=== PATIENT | male | born 1960 | race Caucasian/White ===

== ENCOUNTER 2019-08-21 10:54 | Emergency (ER) | payer OTHER ==
[2019-08-21 11:10] VITALS: RESP 18; TEMP 97.9
[2019-08-21] MEDS ORDERED: SODIUM CHLORIDE 0.9% 1,000 ML IV STA ×2 (11:18→14:50)
[2019-08-21] MEDS: ONDANSETRON 4 MG/2 ML VIAL IVP STA ×3 (11:44→14:51)
[2019-08-21 11:56] LABS: Basophils % (A) 0 %; Eosinophils # (A) 0.1 k/uL (0-0.7); Eosinophils % (A) 1 %; HCT 47.7 % (39.0-53.0); HGB 16.3 gm/dL (13.0-17.5); Lymphocytes # (A) 0.7 k/uL (1.0-4.8); Lymphocytes % (A) 15 %; MCHC 34.2 g/dL (31.0-37.0); MCV 90.6 fL (80.0-100.0); Mean Platelet Volume 7.1; Monocytes # (A) 0.4 k/uL (0-1.0); Monocytes % (A) 8 %; Neutrophils # (A) 3.7 k/uL (1.3-7.7); Neutrophils % (A) 75 %; Platelet Count 136 k/uL (150-450); RBC 5.27 m/uL (4.30-5.90); RDW 13.9 % (11.5-15.5); WBC 4.9 k/uL (3.8-10.6)
[2019-08-21 12:04] LABS: ALT 36 U/L (21-72); AST 48 U/L (17-59); African American GFR (CKD) >90 (>60 ml/min/1.73 sqM); Albumin 4.7 g/dL (3.5-5.0); Alkaline Phosphatase 72 U/L (38-126); Anion Gap 15 mmol/L; Blood Urea Nitrogen 14 mg/dL (9-20); Calcium 8.7 mg/dL (8.4-10.2); Carbon Dioxide 25 mmol/L (22-30); Chloride 99 mmol/L (98-107); Glucose 130 mg/dL (74-99); Non-African American GFR(CKD) >90 (>60 ml/min/1.73 sqM); Potassium 4.5 mmol/L (3.5-5.1); Sodium 139 mmol/L (137-145); Total Bilirubin 1.1 mg/dL (0.2-1.3); Total Protein 7.7 g/dL (6.3-8.2)
[2019-08-21 12:08] LABS: INR 0.9 (<1.2); Partial Thromboplastin Time 22.4 sec (22.0-30.0); Prothrombin Time 9.5 sec (9.0-12.0)
[2019-08-21 12:15] LABS: Alcohol 363 mg/dL
[2019-08-21 12:21] LABS: D-Dimer 1.97 mg/L FEU (<0.60)
[2019-08-21] MEDS ORDERED: FAMOTIDINE 20 MG/2 ML VIAL IV STA (13:48)
[2019-08-21] MEDS ORDERED: MAG HYDROX/AL HYDROX/SIMETH 30 ML CUP PO PRN (13:48)
--- NOTE | 2019-08-21 14:21 | CT ---
CT CHEST FOR PULMONARY EMBOLISM. EXAMINATION TYPE: CT angio chest DATE OF EXAM: 08/21/2019 INDICATION: Chest pain. History of PE and DVT. CT DLP: 445.9 mGycm, Automated exposure control for dose reduction was used. CONTRAST: Patient injected with 100 mL of Isovue 370. COMPARISON: None TECHNIQUE: CT of the chest is performed on a spiral scan at 2 mm thick sections. Study is performed with intravenous contrast timed for evaluation for pulmonary embolism. This will limit additional po rtions of the evaluation. 3-D MIP images reconstructed by the technologist are reviewed on the compu ter in the coronal and sagittal planes. FINDINGS: No persistent filling defects are evident to suggest an acute pulmonary embolism. No mediastinal or hilar adenopathy enlarged by CT criteria is evident. The ascending aorta diameter at the level of the main pulmonary artery is 4.0 cm. The main pulmonary artery diameter at the bifur cation is 3.2 cm. There is a small hiatal hernia. 0.5 cm peripheral nodular densities within the mid left lung. Series [address] section through the upper abdomen are unremarkable. There is a large hypodensity within th e isthmus of thyroid. Consider follow-up ultrasound. IMPRESSIONS: 1. No acute pulmonary embolism. 2. Small hiatal hernia. 3. A 2.8 cm hypodensity within the isthmus of thyroid. Follow-up ultrasound is recommended.
[2019-08-21] MEDS ORDERED: ONDANSETRON 4 MG/2 ML VIAL IVP STA (14:50)
--- NOTE | 2019-08-21 15:52 | ED ---
Chest Pain HPI - General Chief Complaint: Chest Pain Stated Complaint: Chest pain Time Seen by Provider: 08/21/19 10:59 Source: patient Mode of arrival: ambulatory Limitations: no limitations - History of Present Illness Initial Comments: Patient complains of chest pain. Pain is the middle of the chest. He also has nausea. He was drinking before arrival. He has no belly or back pain. His chest pain has been present for several hours. Nothing makes his symptoms better or worse. He has taken no medicine for this. He denies any diaphoresis. He has no focal weakness. He has no palpitations. He denies any injuries. He has no headache. He has no neck pain or stiffness. He has no blood in the stool. - Related Data Allergies Allergy/AdvReac Type Severity Reaction Status Date / Time Penicillins Allergy Mild Rash/Hives Verified 08/21/19 11:39 Review of Systems ROS Statement: Those systems with pertinent positive or pertinent negative responses have been documented in the HPI. ROS Other: All systems not noted in ROS Statement are negative. EKG Findings - EKG Comments: EKG Findings:: Twelve-lead EKG shows ventricular rate 84 bpm, normal VT interval and QRS complex is, no ST elevation or depression, interpreted by me as normal sinus rhythm. Past Medical History Past Medical History: Pulmonary Embolus (PE) Additional Past Medical History / Comment(s): DVT, pt states he was taking xarelto x 1 year ago but couldnt afford it after losing his insurance. History of Any Multi-Drug Resistant Organisms: MRSA Date of last positivie culture/infection: 2006 MDRO Source:: unk Past Surgical History: No Surgical Hx Reported Past Psychological History: No Psychological Hx Reported Smoking Status: Current every day smoker Past Alcohol Use History: Daily Past Drug Use History: None Reported General Exam Limitations: no limitations General appearance: alert, in no apparent distress Head exam: Present: atraumatic, normocephalic, normal inspection Eye exam: Present: normal appearance, PERRL, EOMI. Absent: scleral icterus, conjunctival injection, periorbital swelling ENT exam: Present: normal exam, mucous membranes moist Neck exam: Present: normal inspection. Absent: tenderness, meningismus, lymphadenopathy Respiratory exam: Present: normal lung sounds bilaterally. Absent: respiratory distress, wheezes, rales, rhonchi, stridor Cardiovascular Exam: Present: regular rate, normal rhythm, normal heart sounds. Absent: systolic murmur, diastolic murmur, rubs, gallop, clicks GI/Abdominal exam: Present: soft, normal bowel sounds. Absent: distended, tenderness, guarding, rebound, rigid Extremities exam: Present: normal inspection, full ROM, normal capillary refill. Absent: tenderness, pedal edema, joint swelling, calf tenderness Back exam: Present: normal inspection Neurological exam: Present: alert, oriented X3, CN II-XII intact Psychiatric exam: Present: normal affect, normal mood Skin exam: Present: warm, dry, intact, normal color. Absent: rash Course Vital Signs 08/21/19 08/21/19 08/21/19 10:58 11:27 11:47 Temperature 97.9 F Pulse Rate 86 88 81 Respiratory 18 18 18 Rate Blood Pressure 143/100 143/100 136/91 O2 Sat by Pulse 94 L 97 100 Oximetry 08/21/19 14:10 Temperature Pulse Rate 102 H Respiratory 18 Rate Blood Pressure 148/94 O2 Sat by Pulse 100 Oximetry Chest Pain MDM - Core Measures AMI Core Measures Followed: Yes - MDM Patient presents with chest pain, nausea, alcohol intoxication. His laboratory studies show no acute emergency. He has a history of pulmonary embolism, so obtained a d-dimer which was positive. CT of the chest does not show any acute emergency including negative PE. Patient is observed until clinically sober which time he is discharged home. Disposition Clinical Impression: Alcohol intoxication, Chest pain Disposition: HOME SELF-CARE Condition: Good Instructions (If sedation given, give patient instructions): Chest Pain (ED), Alcohol Intoxication (ED) Is patient prescribed a controlled substance at d/c from ED?: No Referrals: None,Stated [Primary Care Provider] - 1-2 days Yee Calix MD [STAFF PHYSICIAN] - 1-2 days
[2019-08-21] MEDS ORDERED: ONDANSETRON ODT 4 MG TAB PO STA (16:21)
[2019-08-21 16:37] VITALS: BP 134/81; PULSE 100
== END 2019-08-21 16:45 | disposition home or self-care (01) ==
LOC: EC 10:54
DX: F10.129 Alcohol abuse with intoxication, unspecified (principal); R07.9 Chest pain, unspecified; F17.200 Nicotine dependence, unspecified, uncomplicated; Z88.0 Allergy status to penicillin; Z86.711 Personal history of pulmonary embolism; Z86.718 Personal history of other venous thrombosis and embolism
CPT/HCPCS: 36415; 93005; 85379; 83880; 80053; 83735; 84484; 85025; 85610; 85730; 80320; 71275; 99285; 96374; 96375; 96361 ×3; J2405; Q9967

== ENCOUNTER 2020-06-01 16:57 | Inpatient (IN) | payer OTHER ==
[2020-06-01] MEDS ORDERED: THIAMINE 100 MG/ML 2 ML VIAL IM STA (17:08)
[2020-06-01] MEDS ORDERED: LORazepam 2 MG/ML INJ IV PRN (17:08)
[2020-06-01] MEDS ORDERED: SODIUM CHLORIDE 0.9% 500 ML 500 ML IV ONE (17:09)
[2020-06-01 17:42] LABS: Basophils % (A) 0 %; Eosinophils % (A) 1 %; HCT 49.2 % (39.0-53.0); HGB 15.9 gm/dL (13.0-17.5); Lymphocytes # (A) 0.4 k/uL (1.0-4.8); Lymphocytes % (A) 7 %; MCH 32.7 pg (25.0-35.0); MCHC 32.4 g/dL (31.0-37.0); MCV 101.1 fL (80.0-100.0); Macrocytosis Slight; Mean Platelet Volume 8.1; Monocytes # (A) 0.3 k/uL (0-1.0); Monocytes % (A) 5 %; Neutrophils # (A) 4.8 k/uL (1.3-7.7); Neutrophils % (A) 86 %; RBC 4.87 m/uL (4.30-5.90); RDW 14.2 % (11.5-15.5); WBC 5.5 k/uL (3.8-10.6)
[2020-06-01 17:51] LABS: African American GFR (CKD) >90 (>60 ml/min/1.73 sqM); Alcohol 76 mg/dL; Anion Gap 20 mmol/L; Blood Urea Nitrogen 12 mg/dL (9-20); Carbon Dioxide 16 mmol/L (22-30); Chloride 97 mmol/L (98-107); Glucose 168 mg/dL (74-99); Magnesium 1.6 mg/dL (1.6-2.3); Non-African American GFR(CKD) >90 (>60 ml/min/1.73 sqM); Potassium 4.7 mmol/L (3.5-5.1); Sodium 133 mmol/L (137-145)
[2020-06-01 17:59] LABS: Platelet Count 73 k/uL (150-450)
[2020-06-01] MEDS ORDERED: NALOXONE 0.4 MG/ML 1 ML VIAL IV PRN (18:08)
--- NOTE | 2020-06-01 18:08 | ED ---
General Adult HPI - General Chief complaint: Alcohol Stated complaint: ETOH Time Seen by Provider: 06/01/20 16:59 Source: patient, EMS, RN notes reviewed, old records reviewed Mode of arrival: EMS Limitations: no limitations - History of Present Illness Initial comments: 59-year-old male presenting for evaluation of alcohol withdrawal. Patient states she has been drinking 1/5 of whiskey daily for the past one week. He is complaining of tremor, headache. Patient notes to his last drink being yesterday evening. Patient denies suicidal ideation. No significant vomiting. No fever. No cough. - Related Data Home Medications Medication Instructions Recorded Confirmed No Known Home Medications 06/01/20 06/01/20 Allergies Allergy/AdvReac Type Severity Reaction Status Date / Time Penicillins Allergy Mild Rash/Hives Verified 06/01/20 18:10 Review of Systems ROS Statement: Those systems with pertinent positive or pertinent negative responses have been documented in the HPI. ROS Other: All systems not noted in ROS Statement are negative. Past Medical History Past Medical History: Pulmonary Embolus (PE) Additional Past Medical History / Comment(s): DVT, pt states he was taking xarelto x 1 year ago but couldnt afford it after losing his insurance. History of Any Multi-Drug Resistant Organisms: MRSA Date of last positivie culture/infection: 2006 MDRO Source:: unk Past Surgical History: No Surgical Hx Reported Past Psychological History: No Psychological Hx Reported Smoking Status: Current every day smoker Past Alcohol Use History: Abuse, Daily, Heavy Past Drug Use History: None Reported General Exam Limitations: no limitations General appearance: alert, in distress, other (Tremulous) Head exam: Present: atraumatic, normocephalic Eye exam: Present: PERRL ENT exam: Present: mucous membranes dry Neck exam: Present: normal inspection. Absent: tenderness, meningismus Respiratory exam: Present: normal lung sounds bilaterally. Absent: respiratory distress, wheezes Cardiovascular Exam: Present: normal rhythm, tachycardia GI/Abdominal exam: Present: soft. Absent: distended, tenderness, guarding Extremities exam: Present: normal inspection, normal capillary refill. Absent: pedal edema Neurological exam: Present: alert, oriented X3. Absent: motor sensory deficit Psychiatric exam: Present: anxious Skin exam: Present: warm, dry Course Vital Signs 06/01/20 06/01/20 17:00 17:25 Temperature 98.7 F Pulse Rate 112 H 105 H Respiratory 20 16 Rate Blood Pressure 173/126 140/92 O2 Sat by Pulse 97 98 Oximetry Medical Decision Making - Medical Decision Making 59-year-old male with tremor, hypertension, tachycardia, suspect alcohol withdrawal. Alcohol level was only 76. He has some left-sided abnormalities including sodium 133, CO2 of 16. He has thrombocytopenia. Likely CAUSES of alcohol abuse. He is given Ativan in the emergency department. There is concer n for severe alcohol withdrawal. He is admitted for close monitoring, benzodiazepines. Case discussed with Dr. Rg who will admit. - Lab Data Result diagrams: 06/01/20 17:23 06/01/20 17:23 Lab Results 06/01/20 06/01/20 Range/Units 17:23 17:23 WBC 5.5 (3.8-10.6) k/uL RBC 4.87 (4.30-5.90) m/uL Hgb 15.9 (13.0-17.5) gm/dL Hct 49.2 (39.0-53.0) % MCV 101.1 H (80.0-100.0) fL MCH 32.7 (25.0-35.0) pg MCHC 32.4 (31.0-37.0) g/dL RDW 14.2 (11.5-15.5) % Plt Count 73 L (150-450) k/uL Neutrophils % 86 % Lymphocytes % 7 % Monocytes % 5 % Eosinophils % 1 % Basophils % 0 % Neutrophils # 4.8 (1.3-7.7) k/uL Lymphocytes # 0.4 L (1.0-4.8) k/uL Monocytes # 0.3 (0-1.0) k/uL Eosinophils # 0.0 (0-0.7) k/uL Basophils # 0.0 (0-0.2) k/uL Manual Slide Review Performed Macrocytosis Slight Sodium 133 L (137-145) mmol/L Potassium 4.7 (3.5-5.1) mmol/L Chloride 97 L (98-107) mmol/L Carbon Dioxide 16 L (22-30) mmol/L Anion Gap 20 mmol/L BUN 12 (9-20) mg/dL Creatinine 0.67 (0.66-1.25) mg/dL Est GFR (CKD-EPI)AfAm >90 (>60 ml/min/1.73 sqM) Est GFR (CKD-EPI)NonAf >90 (>60 ml/min/1.73 sqM) Glucose 168 H (74-99) mg/dL Calcium 9.0 (8.4-10.2) mg/dL Magnesium 1.6 (1.6-2.3) mg/dL Serum Alcohol 76 mg/dL Disposition Clinical Impression: Alcohol withdrawal syndrome Disposition: ADMITTED IP TO THIS [facility] Condition: Stable Is patient prescribed a controlled substance at d/c from ED?: No Referrals: Ghada Albarado MD [Primary Care Provider] - 1-2 days Decision to Admit Reason: Admit from EC Decision Date: 06/01/20 Decision Time: 18:12
[2020-06-01] MEDS: LORazepam 2 MG/ML INJ IV PRN ×3 (18:41→22:34)
[2020-06-01] MEDS: SODIUM CHLORIDE 0.9% 1,000 ML IV SCH (19:08)
[2020-06-01] MEDS: THIAMINE 100 MG TAB PO SCH (20:31)
[2020-06-01] MEDS: DIAZEPAM 5 MG/ML 2 ML INJ IVP SCH (21:41)
[2020-06-01] MEDS ORDERED: LORazepam 2 MG/ML INJ IV STA (23:38)
[2020-06-01] MEDS ORDERED: HALOPERIDOL LACTATE 5 MG/ML 1 ML VIAL IVP PRN (23:38)
[2020-06-02] MEDS: DIAZEPAM 5 MG/ML 2 ML INJ IVP SCH (03:12)
[2020-06-02] MEDS: LORazepam 2 MG/ML INJ IV PRN ×4 (07:36→23:13)
[2020-06-02] MEDS: THIAMINE 100 MG TAB PO SCH ×2 (07:36→15:39)
[2020-06-02 07:45] LABS: African American GFR (CKD) >90 (>60 ml/min/1.73 sqM); Anion Gap 8 mmol/L; Blood Urea Nitrogen 12 mg/dL (9-20); Calcium 8.8 mg/dL (8.4-10.2); Carbon Dioxide 26 mmol/L (22-30); Chloride 98 mmol/L (98-107); Glucose 101 mg/dL (74-99); Magnesium 1.5 mg/dL (1.6-2.3); Non-African American GFR(CKD) >90 (>60 ml/min/1.73 sqM); Potassium 4.1 mmol/L (3.5-5.1); Sodium 132 mmol/L (137-145)
[2020-06-02] MEDS ORDERED: haloperidoL 1 MG TAB PO PRN (08:41)
--- NOTE | 2020-06-02 09:47 | P.HPIM ---
History of Present Illness 59-year-old male came in for alcohol withdrawal. Patient has been binge drinking about one fifth of whiskey every day. Patient was having tremor. Although patient the last drink was on Wednesday night has been thinking throughout the night into Wednesday morning and yesterday evening his blood alcohol level was 76. Patient denied any suicidal ideation but is definitely depressed, is having some nausea. is willing to quit alcohol patient does have history of alcohol abuse in the past as well. Review of Systems REVIEW OF SYSTEMS: CONSTITUTIONAL: No fever, no malaise, no fatigue. HEENT: No recent visual problems or hearing problems. Denied any sore throat. CARDIOVASCULAR: No chest pain, orthopnea, PND, no palpitations, no syncope. PULMONARY: No shortness of breath, no cough, no hemoptysis. GASTROINTESTINAL: No diarrhea, no nausea, no vomiting, no abdominal pain. NEUROLOGICAL: No headaches, no weakness, no numbness. HEMATOLOGICAL: Denies any bleeding or petechiae. GENITOURINARY: Denies any burning micturition, frequency, or urgency. MUSCULOSKELETAL/RHEUMATOLOGICAL: Denies any joint pain, swelling, or any muscle pain. ENDOCRINE: Denies any polyuria or polydipsia. The rest of the 14-point review of systems is negative. Past Medical History Past Medical History: Deep Vein Thrombosis (DVT), Osteoarthritis (OA), Pulmonary Embolus (PE) Additional Past Medical History / Comment(s): DVT, pt states he was taking xarelto x 1 year ago but couldnt afford it after losing his insurance. Brain bleed in March 2020 History of Any Multi-Drug Resistant Organisms: MRSA Date of last positivie culture/infection: 2006 MDRO Source:: unk Past Surgical History: No Surgical Hx Reported Additional Past Surgical History / Comment(s): Left hand tendon surgery Past Psychological History: No Psychological Hx Reported Smoking Status: Current every day smoker Past Alcohol Use History: Abuse, Daily, Heavy Past Drug Use History: None Reported Medications and Allergies Home Medications Medication Instructions Recorded Confirmed Type No Known Home Medications 06/01/20 06/01/20 History Allergies Allergy/AdvReac Type Severity Reaction Status Date / Time Penicillins Allergy Mild Rash/Hives Verified 06/01/20 18:10 Physical Exam Vitals: Vital Signs Temp Pulse Pulse Resp BP BP Pulse Ox 06/02/20 07:48 99.1 F 93 18 126/76 92 L 06/02/20 04:00 83 17 140/89 95 06/02/20 00:00 98.9 F 93 17 143/78 95 06/01/20 20:00 98.3 F 94 17 141/92 94 L 06/01/20 18:05 102 H 18 140/91 94 L 06/01/20 17:25 105 H 16 140/92 98 06/01/20 17:00 98.7 F 112 H 20 173/126 97 Intake and Output 06/01/20 06/02/20 06/02/20 22:59 06:59 14:59 Intake Total 120 Output Total 600 Balance -600 120 Intake: Oral 120 Output: Urine 600 Other: Voiding Method Urinal Urinal Weight 102.058 kg 89.9 kg PHYSICAL EXAMINATION: GENERAL: The patient is drowsyand oriented x3, not in any acute distress. Well developed, well nourished. bit diaphoretic. HEENT: Pupils are round and equally reacting to light. EOMI. No scleral icterus. No conjunctival pallor. Normocephalic, atraumatic. No pharyngeal erythema. No thyromegaly. CARDIOVASCULAR: S1 and S2 present. No murmurs, rubs, or gallops. PULMONARY: Chest is clear to auscultation, no wheezing or crackles. ABDOMEN: Soft, nontender, nondistended, normoactive bowel sounds. No palpable organomegaly. MUSCULOSKELETAL: No joint swelling or deformity. EXTREMITIES: No cyanosis, clubbing, or pedal edema. NEUROLOGICAL: Gross neurological examination did not reveal any focal deficits. SKIN: No rashes. Results CBC & Chem 7: 06/01/20 17:23 06/02/20 07:09 Labs: Abnormal Lab Results - Last 24 Hours (Table) 06/01/20 06/01/20 06/02/20 Range/Units 17:23 17:23 07:09 MCV 101.1 H (80.0-100.0) fL Plt Count 73 L (150-450) k/uL Lymphocytes # 0.4 L (1.0-4.8) k/uL Sodium 133 L 132 L (137-145) mmol/L Chloride 97 L (98-107) mmol/L Carbon Dioxide 16 L (22-30) mmol/L Creatinine 0.63 L (0.66-1.25) mg/dL Glucose 168 H 101 H (74-99) mg/dL Magnesium 1.5 L (1.6-2.3) mg/dL Thrombosis Risk Factor Assmnt - Choose All That Apply Any of the Below Risk Factors Present?: Yes Each Factor Represents 1 point: Age 41-60 years, Medical pt on bed rest, Obesity (BMI >25) Other Risk Factors: Yes Each Risk Factor Represents 3 Points: History of DVT/PE Other congenital or acquired thrombophilia - If yes, enter type in comment: No Thrombosis Risk Factor Assessment Total Risk Factor Score: 6 Thrombosis Risk Factor Assessment Level: High Risk Assessment and Plan Plan: alcohol abuse, patient will be admitted for withdrawal patient will be continued on Ativan CIWA protocol and the patient will be started on Librium as we ll.continue with thiamine multivitamin supplementation -Hyponatremia hypotonic hyponatremia continue with IV fluids -Alcoholic encephalopathy acute/delirium tremens:patient's hallucinations are secondary to this and the patient will be continued on Haldol and as-needed basis for agitation and hallucinations -Hypomagnesemia secondary to chronic alcoholism which will be replaced -Anion gap metabolic acidosis secondary to alcohol -Thrombocytopenia: Secondary to alcoholism and bone marrow suppression -We'll obtain a CMP for tomorrow to assess his liver function DVT prophylaxis with the Lovenox GI prophylaxis Pepcid
[2020-06-02] MEDS: MAGNESIUM SULFATE-D5W PMX 1 GM in DEXTROSE/WATER 1 100ML.BAG IVPB SCH ×2 (09:59→11:20)
[2020-06-02] MEDS: chlordiazePOXIDE 25 MG CAP PO SCH ×3 (10:00→20:34)
[2020-06-02] MEDS: NICOTINE 14MG/24HR PATCH TRANSDERM SCH (10:00)
[2020-06-02] MEDS: FAMOTIDINE 20 MG TAB PO SCH (20:34)
[2020-06-02] MEDS: SODIUM CHLORIDE 0.9% 1,000 ML IV SCH ×2 (22:12→22:13)
[2020-06-03] MEDS: SODIUM CHLORIDE 0.9% 1,000 ML IV SCH ×2 (06:32→17:35)
[2020-06-03] MEDS: THIAMINE 100 MG TAB PO SCH ×2 (06:40→17:35)
[2020-06-03 08:00] LABS: HCT 40.6 % (39.0-53.0); HGB 13.5 gm/dL (13.0-17.5); MCH 33.3 pg (25.0-35.0); MCHC 33.3 g/dL (31.0-37.0); Macrocytosis Slight; Mean Platelet Volume 9.4; RBC 4.06 m/uL (4.30-5.90); RDW 14.2 % (11.5-15.5); WBC 2.8 k/uL (3.8-10.6)
[2020-06-03 08:01] LABS: Platelet Count 53 k/uL (150-450)
[2020-06-03 08:17] LABS: ALT 131 U/L (4-49); AST 235 U/L (17-59); African American GFR (CKD) >90 (>60 ml/min/1.73 sqM); Albumin 3.4 g/dL (3.5-5.0); Alkaline Phosphatase 65 U/L (38-126); Anion Gap 5 mmol/L; Blood Urea Nitrogen 8 mg/dL (9-20); Calcium 8.4 mg/dL (8.4-10.2); Carbon Dioxide 28 mmol/L (22-30); Chloride 99 mmol/L (98-107); Glucose 92 mg/dL (74-99); Magnesium 1.6 mg/dL (1.6-2.3); Non-African American GFR(CKD) >90 (>60 ml/min/1.73 sqM); Potassium 3.6 mmol/L (3.5-5.1); Sodium 132 mmol/L (137-145); Total Protein 5.8 g/dL (6.3-8.2)
[2020-06-03] MEDS: NICOTINE 14MG/24HR PATCH TRANSDERM SCH (09:38)
[2020-06-03] MEDS: chlordiazePOXIDE 25 MG CAP PO SCH ×3 (09:38→21:01)
[2020-06-03] MEDS: ENOXAPARIN 40 MG/0.4 ML SYRINGE SQ SCH (09:38)
[2020-06-03] MEDS: FAMOTIDINE 20 MG TAB PO SCH ×2 (09:38→21:01)
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
[2020-06-04] MEDS: SODIUM CHLORIDE 0.9% 1,000 ML IV SCH (01:07)
[2020-06-04] MEDS: LORazepam 2 MG/ML INJ IV PRN (01:17)
[2020-06-04] MEDS: THIAMINE 100 MG TAB PO SCH (06:08)
[2020-06-04 08:08] LABS: ALT 187 U/L (4-49); AST 197 U/L (17-59); African American GFR (CKD) >90 (>60 ml/min/1.73 sqM); Alkaline Phosphatase 73 U/L (38-126); Anion Gap 9 mmol/L; Blood Urea Nitrogen 12 mg/dL (9-20); Calcium 9.2 mg/dL (8.4-10.2); Carbon Dioxide 23 mmol/L (22-30); Chloride 101 mmol/L (98-107); Glucose 102 mg/dL (74-99); Non-African American GFR(CKD) >90 (>60 ml/min/1.73 sqM); Potassium 3.8 mmol/L (3.5-5.1); Sodium 133 mmol/L (137-145); Total Bilirubin 1.7 mg/dL (0.2-1.3); Total Protein 6.7 g/dL (6.3-8.2)
[2020-06-04] MEDS: NICOTINE 14MG/24HR PATCH TRANSDERM SCH (09:03)
[2020-06-04] MEDS: chlordiazePOXIDE 25 MG CAP PO SCH (09:03)
[2020-06-04] MEDS: ENOXAPARIN 40 MG/0.4 ML SYRINGE SQ SCH (09:03)
[2020-06-04] MEDS: FAMOTIDINE 20 MG TAB PO SCH (09:03)
[2020-06-04 10:57] VITALS: BP 130/90; PULSE 87; RESP 19; TEMP 97.6
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
== END 2020-06-04 15:05 | disposition home health service (06) | DRG 897 ==
LOC: EC 16:57 → 3SCARD 18:08
PROVIDERS: ADMIT Internal Medicine; ATTEND Internal Medicine
DX: F10.231 Alcohol dependence with withdrawal delirium (principal); E87.2 Acidosis; E87.1 Hypo-osmolality and hyponatremia; G31.2 Degeneration of nervous system due to alcohol; K70.10 Alcoholic hepatitis without ascites; D69.59 Other secondary thrombocytopenia; I10 Essential (primary) hypertension; F17.200 Nicotine dependence, unspecified, uncomplicated; F32.9 Major depressive disorder, single episode, unspecified; E83.42 Hypomagnesemia; M19.90 Unspecified osteoarthritis, unspecified site; R27.0 Ataxia, unspecified; E66.9 Obesity, unspecified; Y90.3 Blood alcohol level of 60-79 mg/100 ml; Z68.26 Body mass index [BMI] 26.0-26.9, adult; Z86.711 Personal history of pulmonary embolism; Z86.718 Personal history of other venous thrombosis and embolism; Z86.14 Personal history of Methicillin resistant Staphylococcus aureus infection; Z87.820 Personal history of traumatic brain injury; Z88.0 Allergy status to penicillin
CPT/HCPCS: 36415; 80048; 80053; 80320; 83735; 85025; 85027; 96361; 96372; 96374; 96376; 99285

== ENCOUNTER 2020-06-26 11:06 | Observation (INO) | payer OTHER ==
[2020-06-26] MEDS ORDERED: HEPARIN SODIUM,PORCINE 10,000 UNIT/ML 1 ML VIAL IV STA (11:29)
--- NOTE | 2020-06-26 11:36 | ED ---
General Adult HPI - General Chief complaint: Extremity Injury, Lower Stated complaint: DR REQUEST TO BE SEEN, POSS DVT FROM MRI Time Seen by Provider: 06/26/20 11:10 Source: patient, RN notes reviewed, old records reviewed Mode of arrival: wheelchair Limitations: no limitations - History of Present Illness Initial comments: This is a 59-year-old male who presents emergency department with past medical history significant for DVTs as well as bilateral PEs in the past. Patient states she supposed be on Xarelto but for the last 3 years he has been unable to afford it so is not getting any salt. Patient states both of his legs are swollen so decided to go see his primary medical care doctor. Patient states he was sent in to get an ultrasound of his lower extremities on the right side he has a blood clot. He called his primary medical care doctor and the doctor wanted him to come to the hospital for admission and further evaluation. Patient does complain of shortness of breath denies any chest pain. Patient states he has no fever chills per patient denies any cough. Patient denies lightheadedness or dizziness. - Related Data Previous Rx's Medication Instructions Recorded Famotidine [Pepcid] 20 mg PO BID #30 tab 06/04/20 Nicotine 14Mg/24Hr Patch [Habitrol] 1 patch TRANSDERM DAILY #14 patch 06/04/20 QUEtiapine FUMARATE [SEROquel] 25 mg PO HS #30 tablet 06/04/20 Thiamine [Vitamin B-1] 100 mg PO BID-W/MEALS #60 tab 06/04/20 chlordiazePOXIDE HCl [Librium] 25 mg PO TID #12 cap 06/04/20 Allergies Allergy/AdvReac Type Severity Reaction Status Date / Time Penicillins Allergy Mild Rash/Hives Verified 06/26/20 11:13 Review of Systems ROS Statement: Those systems with pertinent positive or pertinent negative responses have been documented in the HPI. ROS Other: All systems not noted in ROS Statement are negative. Past Medical History Past Medical History: Deep Vein Thrombosis (DVT), Osteoarthritis (OA), Pulmonary Embolus (PE) Additional Past Medical History / Comment(s): DVT, pt states he was taking xarel to x 1 year ago but couldnt afford it after losing his insurance. Brain bleed in March 2020 History of Any Multi-Drug Resistant Organisms: MRSA Date of last positivie culture/infection: 2007 MDRO Source:: unk Past Surgical History: No Surgical Hx Reported Additional Past Surgical History / Comment(s): Left hand tendon surgery Past Psychological History: No Psychological Hx Reported Smoking Status: Current every day smoker Past Alcohol Use History: None Reported, Abuse, Daily, Heavy Past Drug Use History: None Reported General Exam - General Exam Comments Initial Comments: GENERAL: Patient is well-developed and well-nourished. Patient is nontoxic and well- hydrated and is in mild distress. ENT: Neck is soft and supple. No significant lymphadenopathy is noted. Oropharynx is clear. Moist mucous membranes. Neck has full range of motion without eliciting any pain. EYES: The sclera were anicteric and conjunctiva were pink and moist. Extraocular movements were intact and pupils were equal round and reactive to light. Eyelids were unremarkable. PULMONARY: Unlabored respirations. Good breath sounds bilaterally. No audible rales rhonchi or wheezing was noted. CARDIOVASCULAR: There is a regular rate and rhythm without any murmurs gallops or rubs. ABDOMEN: Soft and nontender with normal bowel sounds. SKIN: Skin is clear with no lesions or rashes and otherwise unremarkable. NEUROLOGIC: Patient is alert and oriented x3. Cranial nerves II through XII are grossly intact. Motor and sensory are also intact. Normal speech, volume and content. Symmetrical smile. MUSCULOSKELETAL: Normal extremities with adequate strength and full range of motion. Bilateral leg edema right greater than left both are tender. LYMPHATICS: No significant lymphadenopathy is noted PSYCHIATRIC: Normal psychiatric evaluation. Limitations: no limitations Course Vital Signs 06/26/20 06/26/20 11:13 12:55 Temperature 98.2 F Pulse Rate 74 73 Respiratory 18 18 Rate Blood Pressure 133/85 131/90 O2 Sat by Pulse 99 99 Oximetry Medical Decision Making - Medical Decision Making EKG shows a normal sinus rhythm at 72 bpm AR interval 262 QRS is 86 QT interval 3 QTC is 416. Patient's EKG shows no ST segment elevation or depression. I reviewed the results of the ultrasound did show a large DVT going up into the external iliac. I did a study to evaluate for pulmonary embolism and the CT of the chest showed bilateral pulmonary emboli. It was started given a heparin bolus and heparin drip prior to going to CAT scan. I spoke with Dr. poole he agreed to admit the patient admitted the patient wrote admitting orders. - Lab Data Result diagrams: 06/26/20 11:40 06/26/20 11:40 Lab Results 06/26/20 06/26/20 06/26/20 Range/Units 11:40 11:40 11:40 WBC 7.1 (3.8-10.6) k/uL RBC 4.26 L (4.30-5.90) m/uL Hgb 14.2 (13.0-17.5) gm/dL Hct 43.6 (39.0-53.0) % MCV 102.3 H (80.0-100.0) fL MCH 33.4 (25.0-35.0) pg MCHC 32.7 (31.0-37.0) g/dL RDW 12.8 (11.5-15.5) % Plt Count 266 D (150-450) k/uL Neutrophils % 84 % Lymphocytes % 7 % Monocytes % 5 % Eosinophils % 3 % Basophils % 0 % Neutrophils # 6.0 (1.3-7.7) k/uL Lymphocytes # 0.5 L (1.0-4.8) k/uL Monocytes # 0.4 (0-1.0) k/uL Eosinophils # 0.2 (0-0.7) k/uL Basophils # 0.0 (0-0.2) k/uL Macrocytosis Slight PT 11.6 (9.0-12.0) sec INR 1.1 (<1.2) APTT 29.5 (22.0-30.0) sec Sodium 139 (137-145) mmol/L Potassium 3.6 (3.5-5.1) mmol/L Chloride 114 H (98-107) mmol/L Carbon Dioxide 22 (22-30) mmol/L Anion Gap 3 mmol/L BUN 6 L (9-20) mg/dL Creatinine 0.64 L (0.66-1.25) mg/dL Est GFR (CKD-EPI)AfAm >90 (>60 ml/min/1.73 sqM) Est GFR (CKD-EPI)NonAf >90 (>60 ml/min/1.73 sqM) Glucose 87 (74-99) mg/dL Plasma Lactic Acid Azam (0.7-2.0) mmol/L Calcium 7.0 L (8.4-10.2) mg/dL Total Bilirubin 0.4 (0.2-1.3) mg/dL AST 29 (17-59) U/L ALT 19 (4-49) U/L Alkaline Phosphatase 57 (38-126) U/L Troponin I (0.000-0.034) ng/mL Total Protein 5.0 L (6.3-8.2) g/dL Albumin 2.7 L (3.5-5.0) g/dL 06/26/20 06/26/20 Range/Units 11:40 11:40 WBC (3.8-10.6) k/uL RBC (4.30-5.90) m/uL Hgb (13.0-17.5) gm/dL Hct (39.0-53.0) % MCV (80.0-100.0) fL MCH (25.0-35.0) pg MCHC (31.0-37.0) g/dL RDW (11.5-15.5) % Plt Count (150-450) k/uL Neutrophils % % Lymphocytes % % Monocytes % % Eosinophils % % Basophils % % Neutrophils # (1.3-7.7) k/uL Lymphocytes # (1.0-4.8) k/uL Monocytes # (0-1.0) k/uL Eosinophils # (0-0.7) k/uL Basophils # (0-0.2) k/uL Macrocytosis PT (9.0-12.0) sec INR (<1.2) APTT (22.0-30.0) sec Sodium (137-145) mmol/L Potassium (3.5-5.1) mmol/L Chloride (98-107) mmol/L Carbon Dioxide (22-30) mmol/L Anion Gap mmol/L BUN (9-20) mg/dL Creatinine (0.66-1.25) mg/dL Est GFR (CKD-EPI)AfAm (>60 ml/min/1.73 sqM) Est GFR (CKD-EPI)NonAf (>60 ml/min/1.73 sqM) Glucose (74-99) mg/dL Plasma Lactic Acid Azam 0.8 (0.7-2.0) mmol/L Calcium (8.4-10.2) mg/dL Total Bilirubin (0.2-1.3) mg/dL AST (17-59) U/L ALT (4-49) U/L Alkaline Phosphatase (38-126) U/L Troponin I <0.012 (0.000-0.034) ng/mL Total Protein (6.3-8.2) g/dL Albumin (3.5-5.0) g/dL Critical Care Time Critical Care Time: Yes Total Critical Care Time: 35 Disposition Clinical Impression: Pulmonary embolism, DVT (deep venous thrombosis) Disposition: ADMITTED IP TO THIS HOSP Referrals: Ghada Albarado MD [Primary Care Provider] - 1-2 days Time of Disposition: 13:03
[2020-06-26 12:09] LABS: ALT 19 U/L (4-49); AST 29 U/L (17-59); African American GFR (CKD) >90 (>60 ml/min/1.73 sqM); Albumin 2.7 g/dL (3.5-5.0); Alkaline Phosphatase 57 U/L (38-126); Anion Gap 3 mmol/L; Blood Urea Nitrogen 6 mg/dL (9-20); Carbon Dioxide 22 mmol/L (22-30); Chloride 114 mmol/L (98-107); Glucose 87 mg/dL (74-99); Non-African American GFR(CKD) >90 (>60 ml/min/1.73 sqM); Potassium 3.6 mmol/L (3.5-5.1); Sodium 139 mmol/L (137-145); Total Bilirubin 0.4 mg/dL (0.2-1.3)
[2020-06-26 12:15] LABS: Basophils % (A) 0 %; Eosinophils # (A) 0.2 k/uL (0-0.7); Eosinophils % (A) 3 %; HCT 43.6 % (39.0-53.0); HGB 14.2 gm/dL (13.0-17.5); Lymphocytes # (A) 0.5 k/uL (1.0-4.8); Lymphocytes % (A) 7 %; MCH 33.4 pg (25.0-35.0); MCHC 32.7 g/dL (31.0-37.0); MCV 102.3 fL (80.0-100.0); Macrocytosis Slight; Mean Platelet Volume 7.5; Monocytes # (A) 0.4 k/uL (0-1.0); Monocytes % (A) 5 %; Neutrophils % (A) 84 %; RBC 4.26 m/uL (4.30-5.90); RDW 12.8 % (11.5-15.5); WBC 7.1 k/uL (3.8-10.6)
[2020-06-26 12:18] LABS: Platelet Count 266 k/uL (150-450)
[2020-06-26 12:26] LABS: INR 1.1 (<1.2); Partial Thromboplastin Time 29.5 sec (22.0-30.0); Prothrombin Time 11.6 sec (9.0-12.0)
--- NOTE | 2020-06-26 12:37 | CT ---
EXAMINATION TYPE: CT abdomen pelvis w con DATE OF EXAM: 06/26/2020 COMPARISON: None HISTORY: DVT CT DLP: 770.2 mGycm CONTRAST: CT scan of the abdomen and pelvis is performed without Oral Contrast and with IV Contrast, patient in jected with 100 mL of Isovue 370. FINDINGS: LUNG BASES-: No visible nodule. No infiltrate. LIVER/GB: Soft gallstones identified. No space occupying hepatic lesion. Biliary tree is of normal caliber. PANCREAS: No inflammation. No distinct mass. SPLEEN: No splenic enlargement. No lesion seen. ADRENALS: No nodule. No thickening. KIDNEYS/BLADDER: No hydronephrosis. No nephrolithiasis. No distinct renal mass. Urinary bladder g rossly unremarkable. BOWEL: Normal appendix. Normal bowel caliber. No inflammation. GENITAL ORGANS: No gross abnormality. LYMPH NODES: No greater than 1cm abdominal or pelvic lymph nodes are appreciated. AORTA: No significant abnormality. OSSEOUS STRUCTURES: No significant abnormality is seen. OTHER: DVT noted within the right femoral vein at the level of the inguinal canal. IMPRESSION: 1. Right lower extremity DVT. 2. Otherwise unremarkable study.
--- NOTE | 2020-06-26 12:38 | CT ---
EXAMINATION TYPE: CT chest angio for PE DATE OF EXAM: 06/26/2020 COMPARISON: HISTORY: 08/21/2019 CT DLP: 1187.2 mGycm Automated exposure control for dose reduction was used. CONTRAST: CT Chest for pulmonary embolism performed with with IV Contrast, patient injected with 100 mL of Isov ue 370. FINDINGS: LUNGS: Subsegmental changes involving both lung bases most typical of atelectasis. No pleural effusio n or pneumothorax. MEDIASTINUM: There is a filling defect within a secondary branch of the left upper lobe pulmonary art moris compatible with acute pulmonary embolism. Filling defects are also noted on the right involving s econdary and tertiary branch. Central pulmonary arteries demonstrate a small amount of clot within th e distal margin of the left pulmonary artery. Heart size is mildly enlarged. Right ventricular left v entricular ratio is 1, right ventricular strain not excluded. Correlate clinically. OTHER: Stable thyroid nodule.. IMPRESSION: 1. Bilateral acute pulmonary embolism. 2. Stable right thyroid nodule.
[2020-06-26] MEDS: HEPARIN SOD,PORK IN 0.45% NACL 25,000 UNIT in 0.45% NACL 1 250ML.BAG IV SCH (12:47)
[2020-06-26] MEDS ORDERED: SODIUM CHLORIDE 0.9% 1,000 ML IV ONE (13:03)
--- NOTE | 2020-06-26 13:21 | P.HPIM ---
History of Present Illness this is a pleasant 59 years old male with past medical history of DVT, stopped taking his oral to 1 year ago because of insurance and he could not afford it. He smokes cigarettes. he went to see Dr. Quintanilla today for bilateral leg swelling who referred him to the hospital. Patient also complains from exertional dyspnea but no chest pain or coughing. No change in his urine or bowel habits. No fever. he smokes about 1 pack per day but he denies alcohol or illicit tracts on the presentation Vitas looks stablehe is saturating 99 percent on 2 L oxygen. labs are unremarkable including CBC, INR is normal 1.1, unremarkable BMP with normal creatinine, liver enzymes not elevated. CT of the chest: Showing bilateral acute pulmonary embolism with stable right thyroid nodule CT of the abdomen and pelvis with contrast showingright lower extremity DVT in the emergency room patient was started with heparin drip and normal saline at 75 mL/h Review of Systems CONSTITUTIONAL: No fever, no malaise, no fatigue. HEENT: No recent visual problems or hearing problems. Denied any sore throat. CARDIOVASCULAR: No orthopnea, PND, no palpitations, no syncope. PULMONARY: no hemoptysis. GASTROINTESTINAL: No diarrhea, no nausea, no vomiting, no abdominal pain. Normoactive bowel sounds. NEUROLOGICAL: No headaches, no weakness, no numbness. HEMATOLOGICAL: Denies any bleeding or petechiae. GENITOURINARY: Denies any burning micturition, frequency, or urgency. MUSCULOSKELETAL/RHEUMATOLOGICAL: Denies any joint pain, swelling, or any muscle pain. ENDOCRINE: Denies any polyuria or polydipsia. Past Medical History Past Medical History: Deep Vein Thrombosis (DVT), Osteoarthritis (OA), Pulmonary Embolus (PE) Additional Past Medical History / Comment(s): DVT, pt states he was taking xarelto x 1 year ago but couldnt afford it after losing his insurance. Brain bleed in March 2020 History of Any Multi-Drug Resistant Organisms: MRSA Date of last positivie culture/infection: 2006 MDRO Source:: unk Past Surgical History: No Surgical Hx Reported Additional Past Surgical History / Comment(s): Left hand tendon surgery Past Psychological History: No Psychological Hx Reported Smoking Status: Current every day smoker Past Alcohol Use History: None Reported, Abuse, Daily, Heavy Past Drug Use History: None Reported Medications and Allergies Home Medications Medication Instructions Recorded Confirmed Type Famotidine [Pepcid] 20 mg PO BID #30 tab 06/04/20 Rx Nicotine 14Mg/24Hr Patch [Habitrol] 1 patch TRANSDERM DAILY #14 patch 06/04/20 Rx QUEtiapine FUMARATE [SEROquel] 25 mg PO HS #30 tablet 06/04/20 Rx Thiamine [Vitamin B-1] 100 mg PO BID-W/MEALS #60 tab 06/04/20 Rx chlordiazePOXIDE HCl [Librium] 25 mg PO TID #12 cap 06/04/20 Rx Allergies Allergy/AdvReac Type Severity Reaction Status Date / Time Penicillins Allergy Mild Rash/Hives Verified 06/26/20 13:07 Physical Exam Vitals: Vital Signs Temp Pulse Resp BP Pulse Ox 06/26/20 12:55 73 18 131/90 99 06/26/20 11:13 98.2 F 74 18 133/85 99 Intake and Output 06/25/20 06/26/20 06/26/20 22:59 06:59 14:59 Other: Weight 101.151 kg GENERAL: The patient is alert and oriented x3, not in any acute distress. Well developed, well nourished. HEENT: Pupils are round and equally reacting to light. EOMI. No scleral icterus. No conjunctival pallor. Normocephalic, atraumatic. No pharyngeal erythema. No thyromegaly. CARDIOVASCULAR: S1 and S2 present. No murmurs, rubs, or gallops. PULMONARY: Chest is clear to auscultation, no wheezing or crackles. ABDOMEN: Soft, nontender, nondistended, normoactive bowel sounds. No palpable organomegaly. MUSCULOSKELETAL: No joint swelling or deformity. -EXTREMITIES: No cyanosis, clubbing.bilateral leg swelling, right leg more than left NEUROLOGICAL: Gross neurological examination did not reveal any focal deficits. SKIN: No rashes. No petechiae Results CBC & Chem 7: 06/26/20 11:40 06/26/20 11:40 Labs: Abnormal Lab Results - Last 24 Hours (Table) 06/26/20 06/26/20 Range/Units 11:40 11:40 RBC 4.26 L (4.30-5.90) m/uL MCV 102.3 H (80.0-100.0) fL Lymphocytes # 0.5 L (1.0-4.8) k/uL Chloride 114 H (98-107) mmol/L BUN 6 L (9-20) mg/dL Creatinine 0.64 L (0.66-1.25) mg/dL Calcium 7.0 L (8.4-10.2) mg/dL Total Protein 5.0 L (6.3-8.2) g/dL Albumin 2.7 L (3.5-5.0) g/dL Assessment and Plan Assessment: bilateral pulmonary embolism right Acute the venous thrombosis stable right thyroid nodule nicotine dependence Plan: this is a pleasant 59 resolve male who presents with bilateral PE and dried DVT. Continue with heparin drip. 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 Continue same treatment. Continue with symptomatic treatment. Resume home medication. Monitor lytes and vitals. DVT and GI prophylaxis. Further recommendations depends on the clinical course of the patient DVT prophylaxis: Subcutaneous heparin GI Prophylaxis: Pepcid PT/OT: Pending Prognosis is guarded
[2020-06-26] MEDS ORDERED: MORPHINE SULFATE 2 MG/ML SYRINGE IVP STA (13:43)
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
[2020-06-27] MEDS: HEPARIN SOD,PORK IN 0.45% NACL 25,000 UNIT in 0.45% NACL 1 250ML.BAG IV SCH ×2 (02:30→15:46)
[2020-06-27] MEDS: ACETAMINOPHEN TAB 325 MG TAB PO PRN ×3 (02:34→19:50)
[2020-06-27 08:43] LABS: Basophils % (A) 1 %; Eosinophils # (A) 0.2 k/uL (0-0.7); Eosinophils % (A) 4 %; HCT 41.8 % (39.0-53.0); HGB 13.5 gm/dL (13.0-17.5); Hypochromasia Slight; Lymphocytes # (A) 0.8 k/uL (1.0-4.8); Lymphocytes % (A) 16 %; MCH 33.1 pg (25.0-35.0); MCHC 32.2 g/dL (31.0-37.0); MCV 102.8 fL (80.0-100.0); Macrocytosis Slight; Mean Platelet Volume 7.2; Monocytes # (A) 0.3 k/uL (0-1.0); Monocytes % (A) 7 %; Neutrophils # (A) 3.4 k/uL (1.3-7.7); Neutrophils % (A) 72 %; Platelet Count 241 k/uL (150-450); RBC 4.07 m/uL (4.30-5.90); RDW 12.7 % (11.5-15.5); WBC 4.8 k/uL (3.8-10.6)
--- NOTE | 2020-06-27 09:35 | ECHOF ---
Referral Reason:Rule out heart disease MEASUREMENTS -------- HEIGHT: 185.4 cm WEIGHT: 98.4 kg BP: 131/89 RVIDd: 3.7 cm (< 3.3) IVSd: 1.2 cm (0.6 - 1.1) LVIDd: 4.5 cm (3.9 - 5.3) LVPWd: 1.1 cm (0.6 - 1.1) IVSs: 2.0 cm LVIDs: 2.1 cm LVPWs: 2.1 cm LAESV Index (A-L): 28.72 ml/m Ao Diam: 3.6 cm (2.0 - 3.7) AV Cusp: 2.3 cm (1.5 - 2.6) LA Diam: 2.8 cm (2.7 - 3.8) MV EXCURSION: 20.824 mm (> 18.000) MV EF SLOPE: 133 mm/s (70 - 150) EPSS: 0.7 cm MV E George: 0.61 m/s MV DecT: 208 ms MV A George: 0.80 m/s MV E/A Ratio: 0.77 AR PHT: 632 ms RAP: 5.00 mmHg RVSP: 10.90 mmHg TAPSE: 27.33 mm FINDINGS -------- Sinus rhythm. This was a technically adequate study. The left ventricular size is normal. There is borderline concentric left ventricular hypertrophy. Overall left ventricular systolic function is normal with, an EF between 55 - 60 %. The diastolic filling pattern is normal for the age of the patient 8.01. The right ventricle is mildly enlarged. Normal LA size by volume 22+/-6 ml/m2. The right atrial size is normal. The aortic valve is trileaflet and appears structurally normal. Trace to mild aortic regurgitation. The mitral valve is normal. Mild mitral regurgitation is present. The tricuspid valve appears structurally normal. Trace tricuspid regurgitation present. Right leisa tricular systolic pressure is normal at < 35 mmHg. Trace/mild (physiologic) pulmonic regurgitation. The aortic root size is normal. Normal inferior vena cava with normal inspiratory collapse consistent with estimated right atrial pre ssure of 5 mmHg. There is no pericardial effusion. CONCLUSIONS -------- 1. There is borderline concentric left ventricular hypertrophy. 2. Overall left ventricular systolic function is normal with, an EF between 55 - 60 %. 3. The diastolic filling pattern is normal for the age of the patient 8.01 4. The right ventricle is mildly enlarged. 5. Normal LA size by volume 22+/-6 ml/m2. 6. Trace to mild aortic regurgitation. 7. Mild mitral regurgitation is present. 8. Trace tricuspid regurgitation present. 9. Trace/mild (physiologic) pulmonic regurgitation. 10. There is no pericardial effusion. DOCK OPERATIONS SUPERVISOR: Fely Zavala RDCS
--- NOTE | 2020-06-27 13:14 | P.PN ---
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 Patient was diagnosed in 2017, and he was treated with over 6 months of oral anticoagulation therapy, however he got to the point that he couldn't afford it anymore. And it was basically discontinued. Patient has been doing well since then, however patient was seen by his primary care physician Dr. Albarado on 06/26/20, he has been complaining of bilateral lower extremity swelling, and some dyspnea on exertion. Ultrasound of the lower extremities showed right-sided DVT. Then his primary care physician recommended that he goes to the ER since he was complaining of shortness of breath, and he was concerned about pulmonary embolism. Indeed CT angiogram of the chest came back positive for bilateral pulmonary emboli. Patient's symptoms have been symptoms of chronic shortness of breath, mostly dyspnea on exertion, and over the last 2 weeks has worsened. Patient always felt that his shortness of breath was related to his smoking history, patient is at least a [id number] smoker. At any rate considering his positive ultrasound for DVT and considering his CT angiogram of the chest positive for bilateral pulmonary embolism, patient was admitted and this consult was initiated. Patient denies any family history of thromboembolic disease. His father of lung cancer and he was a heavy smoker. Patient denies any history of malignancy. And he denies being worked up in the past for hypercoagulable state. But since his DVT and pulmonary embolism were unprovoked back in 2017, he was advised at the time to be on lifelong anticoagulations therapy. Patient is seen today 06/27/2020 in follow-up on the selective care unit. He is awake and alert in no acute distress. He is resting quite comfortably in bed. No worsening chest pain, no chest pressure. No shortness of breath. No hemoptysis. Maintaining O2 saturation in the 90s on room air. He remains on heparin drip. No hemoptysis. He remains on heparin drip. Objective - Vital Signs Vital signs: Vital Signs Temp 98.3 F 06/27/20 08:00 Pulse 69 06/27/20 08:00 Resp 18 06/27/20 08:00 BP 129/81 06/27/20 08:00 Pulse Ox 96 06/27/20 08:00 Intake & Output 06/26/20 06/27/20 06/27/20 18:59 06:59 18:59 Intake Total 236 249.739 120 Output Total 350 150 Balance 236 -100.261 -30 Weight 101.151 kg 98.6 kg Intake: Intake, IV Titration 249.739 Amount Heparin Sod,Pork in 0.45% 249.739 NaCl 25,000 unit In 0.45 % NaCl 1 250ml.bag @ 18 UNITS/KG/HR 18.207 mls/hr IV .[id number] [facility] Rx#: [id number] Oral 236 120 Output: Urine 350 150 Other: Voiding Method Toilet Toilet Urinal Urinal # Voids 2 0 # Bowel Movements 0 - Exam GENERAL EXAM: Alert, active, pleasant 59-year-old gentleman, on room air, comfortable in no apparent distress. HEAD: Normocephalic. EYES: Normal reaction of pupils, equal size. NOSE: Clear with pink turbinates. THROAT: No erythema or exudates. NECK: No masses, no JVD. CHEST: No chest wall deformity. LUNGS: Equal air entry with no crackles, wheeze, rhonchi or dullness. CVS: S1 and S2 normal with no audible murmur, regular rhythm. ABDOMEN: No hepatosplenomegaly, normal bowel sounds, no guarding or rigidity. SPINE: No scoliosis or deformity SKIN: No rashes CENTRAL NERVOUS SYSTEM: No focal deficits, tone is normal in all 4 extremities. EXTREMITIES: There is trace peripheral edema. No clubbing, no cyanosis. Peripheral pulses are intact. - Labs CBC & Chem 7: 06/27/20 07:59 06/26/20 11:40 Labs: Abnormal Lab Results - Last 24 Hours (Table) 06/27/20 06/27/20 06/27/20 Range/Units 02:07 07:59 07:59 RBC 4.07 L (4.30-5.90) m/uL MCV 102.8 H (80.0-100.0) fL Lymphocytes # 0.8 L (1.0-4.8) k/uL APTT 59.3 H 45.4 H (22.0-30.0) sec Assessment and Plan Assessment: 1 Bilateral pulmonary emboli with right lower extremity DVT 2 History of previous PE/DVT, currently off anticoagulants 3 Chronic tobacco dependence 4 History of right thyroid nodule Plan: The patient was seen and evaluated by Dr. Hills Could be transitioned to oral anticoagulant Cleared for discharge once oral anticoagulation therapy is provided He will need lifelong anticoagulation Educated regarding the importance of complete smoking cessation Educated regarding the importance of cancer screening I, the cosigning physician, performed a history & physical examination of the patient. Lungs sounds are clear. Maintaining good O2 saturations in the 90s on room air. I discussed the assessment and plan of care with my nurse practitioner, Kristel Canela. I attest to the above note as dictated by her.
[2020-06-27] MEDS: IBUPROFEN 400 MG TAB PO PRN (15:44)
--- NOTE | 2020-06-27 20:29 | P.PN ---
Subjective this is a pleasant 59 years old male with past medical history of DVT, stopped taking his oral to 1 year ago because of insurance and he could not afford it. He smokes cigarettes. he went to see Dr. Quintanilla today for bilateral leg swelling who referred him to the hospital. Patient also complains from exertional dyspnea but no chest pain or coughing. No change in his urine or bowel habits. No fever. he smokes about 1 pack per day but he denies alcohol or illicit tracts on the presentation Vitas looks stablehe is saturating 99 percent on 2 L oxygen. labs are unremarkable including CBC, INR is normal 1.1, unremarkable BMP with normal creatinine, liver enzymes not elevated. CT of the chest: Showing bilateral acute pulmonary embolism with stable right thyroid nodule CT of the abdomen and pelvis with contrast showingright lower extremity DVT in the emergency room patient was started with heparin drip and normal saline at 75 mL/h 06/27/20 pt is lying in bed comfortable , he thinks he is improving with less swelling in his lower ext, no resp symptoms echo is unremarkable pulmonary f/u pt closely and recommend to switch him to oral AC Pt is started on eliquis and dc heparin drip. copay for eliquis is $0 as per staff pt is instructed to f/u with piano case maker as outpt and he agrees Review of Systems CONSTITUTIONAL: No fever, no malaise, no fatigue. HEENT: No recent visual problems or hearing problems. Denied any sore throat. CARDIOVASCULAR: No orthopnea, PND, no palpitations, no syncope. PULMONARY: no hemoptysis. GASTROINTESTINAL: No diarrhea, no nausea, no vomiting, no abdominal pain. Normoactive bowel sounds. NEUROLOGICAL: No headaches, no weakness, no numbness. Active Medications Generic Name Dose Route Start Last Admin Trade Name Freq PRN Reason Stop Dose Admin Acetaminophen 650 mg 06/27/20 00:44 06/27/20 19:50 Acetaminophen Tab 325 Mg Tab PO 650 mg Q6HR PRN Administration Fever and/ or Pain Apixaban 10 mg 06/27/20 20:28 Apixaban 5 Mg Tab PO 07/03/20 20:26 BID JERO Ibuprofen 400 mg 06/27/20 15:37 06/27/20 15:44 Ibuprofen 400 Mg Tab PO 400 mg Q6HR PRN Administration Pain Objective - Vital Signs Vital signs: Vital Signs Temp 98.2 F 06/27/20 16:00 Pulse 52 L 06/27/20 16:00 Resp 20 06/27/20 16:00 BP 125/76 06/27/20 16:00 Pulse Ox 94 L 06/27/20 16:00 Intake & Output 06/27/20 06/27/20 06/28/20 06:59 18:59 06:59 Intake Total 249.739 601.546 Output Total 350 1600 Balance -100.261 -998.454 Weight 98.6 kg Intake: Intake, IV Titration 249.739 241.546 Amount Heparin Sod,Pork in 0.45% 249.739 241.546 NaCl 25,000 unit In 0.45 % NaCl 1 250ml.bag @ 18 UNITS/KG/HR 18.207 mls/hr IV .[id number] [facility] Rx#: [id number] Oral 360 Output: Urine 350 1600 Other: Voiding Method Toilet Toilet Urinal Urinal # Voids 2 0 # Bowel Movements 0 - Labs CBC & Chem 7: 06/27/20 07:59 06/26/20 11:40 Labs: Abnormal Lab Results - Last 24 Hours (Table) 06/27/20 06/27/20 06/27/20 Range/Units 02:07 07:59 07:59 RBC 4.07 L (4.30-5.90) m/uL MCV 102.8 H (80.0-100.0) fL Lymphocytes # 0.8 L (1.0-4.8) k/uL APTT 59.3 H 45.4 H (22.0-30.0) sec Assessment and Plan Assessment: bilateral pulmonary embolism right Acute the venous thrombosis stable right thyroid nodule nicotine dependence Plan: this is a pleasant 59 resolve male who presents with bilateral PE and dried DVT. stop heparin drip and start eliquis. Pulmonary consult. section gang worker consult for insurance issue Labs and medication were reviewed.. Continue same treatment. Continue with symptomatic treatment. Resume home medication. Monitor lytes and vitals. DVT and GI prophylaxis. Further recommendations depends on the clinical course of the patient DVT prophylaxis: Subcutaneous eliquis GI Prophylaxis: Pepcid PT/OT: Pending Prognosis is guarded
[2020-06-27] MEDS: APIXABAN 5 MG TAB PO SCH (22:22)
[2020-06-28] MEDS: IBUPROFEN 400 MG TAB PO PRN ×2 (00:01→09:11)
[2020-06-28] MEDS: ACETAMINOPHEN TAB 325 MG TAB PO PRN ×2 (03:54→11:51)
[2020-06-28 07:25] LABS: Basophils % (A) 1 %; Eosinophils # (A) 0.4 k/uL (0-0.7); Eosinophils % (A) 7 %; HCT 43.7 % (39.0-53.0); HGB 13.7 gm/dL (13.0-17.5); Hypochromasia Slight; Lymphocytes # (A) 0.7 k/uL (1.0-4.8); Lymphocytes % (A) 12 %; MCH 32.6 pg (25.0-35.0); MCHC 31.4 g/dL (31.0-37.0); MCV 103.9 fL (80.0-100.0); Macrocytosis Slight; Mean Platelet Volume 7.6; Monocytes # (A) 0.4 k/uL (0-1.0); Monocytes % (A) 7 %; Neutrophils # (A) 4.4 k/uL (1.3-7.7); Neutrophils % (A) 73 %; Platelet Count 271 k/uL (150-450); RBC 4.21 m/uL (4.30-5.90); RDW 13.2 % (11.5-15.5)
[2020-06-28] MEDS: APIXABAN 5 MG TAB PO SCH (09:12)
[2020-06-28 09:27] VITALS: TEMP 96.5
[2020-06-28 12:10] VITALS: BP 125/75; PULSE 55; RESP 18
[2020-06-28 12:18] LABS: Glucose,Whole Blood 98 mg/dL (75-99)
--- NOTE | 2020-06-28 12:29 | P.PN ---
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 Patient was diagnosed in 2017, and he was treated with over 6 months of oral anticoagulation therapy, however he got to the point that he couldn't afford it anymore. And it was basically discontinued. Patient has been doing well since then, however patient was seen by his primary care physician Dr. Albarado on 06/26/20, he has been complaining of bilateral lower extremity swelling, and some dyspnea on exertion. Ultrasound of the lower extremities showed right-sided DVT. Then his primary care physician recommended that he goes to the ER since he was complaining of shortness of breath, and he was concerned about pulmonary embolism. Indeed CT angiogram of the chest came back positive for bilateral pulmonary emboli. Patient's symptoms have been symptoms of chronic shortness of breath, mostly dyspnea on exertion, and over the last 2 weeks has worsened. Patient always felt that his shortness of breath was related to his smoking history, patient is at least a [id number] smoker. At any rate considering his positive ultrasound for DVT and considering his CT angiogram of the chest positive for bilateral pulmonary embolism, patient was admitted and this consult was initiated. Patient denies any family history of thromboembolic disease. His father of lung cancer and he was a heavy smoker. Patient denies any history of malignancy. And he denies being worked up in the past for hypercoagulable state. But since his DVT and pulmonary embolism were unprovoked back in 2017, he was advised at the time to be on lifelong anticoagulations therapy. Patient is seen today 06/27/2020 in follow-up on the selective care unit. He is awake and alert in no acute distress. He is resting quite comfortably in bed. No worsening chest pain, no chest pressure. No shortness of breath. No hemoptysis. Maintaining O2 saturation in the 90s on room air. He remains on heparin drip. No hemoptysis. He remains on heparin drip. The patient is seen today 06/28/2020 in follow-up on the selective care unit. Jaye salgado is awake and alert in no acute distress. Up ambulating in his room. Maintaining O2 saturations in the mid 90s on room air. Afebrile. No worsening shortness of breath, cough or congestion. No hemoptysis. No chest pain. No pleurisy pain. He's been transitioned to [facility]. Objective - Vital Signs Vital signs: Vital Signs Temp 96.5 F L 06/28/20 09:00 Pulse 55 L 06/28/20 11:10 Resp 18 06/28/20 11:10 BP 125/75 06/28/20 11:10 Pulse Ox 97 06/28/20 11:10 Intake & Output 06/27/20 06/28/20 06/28/20 18:59 06:59 18:59 Intake Total 601.546 Output Total 1600 Balance -998.454 Weight 98.6 kg Intake: Intake, IV Titration 241.546 Amount Heparin Sod,Pork in 0.45% 241.546 NaCl 25,000 unit In 0.45 % NaCl 1 250ml.bag @ 18 UNITS/KG/HR 18.207 mls/hr IV .[id number] [facility] Rx#: [id number] Oral 360 Output: Urine 1600 Other: Voiding Method Toilet Toilet Urinal Urinal # Voids 0 1 1 # Bowel Movements 0 - Exam GENERAL EXAM: Alert, active, pleasant 59-year-old gentleman, on room air, comfortable in no apparent distress. HEAD: Normocephalic. EYES: Normal reaction of pupils, equal size. NOSE: Clear with pink turbinates. THROAT: No erythema or exudates. NECK: No masses, no JVD. CHEST: No chest wall deformity. LUNGS: Equal air entry with no crackles, wheeze, rhonchi or dullness. CVS: S1 and S2 normal with no audible murmur, regular rhythm. ABDOMEN: No hepatosplenomegaly, normal bowel sounds, no guarding or rigidity. SPINE: No scoliosis or deformity SKIN: No rashes CENTRAL NERVOUS SYSTEM: No focal deficits, tone is normal in all 4 extremities. EXTREMITIES: There is trace peripheral edema. No clubbing, no cyanosis. Peripheral pulses are intact. - Labs CBC & Chem 7: 06/28/20 06:42 06/26/20 11:40 Labs: Abnormal Lab Results - Last 24 Hours (Table) 06/28/20 Range/Units 06:42 RBC 4.21 L (4.30-5.90) m/uL MCV 103.9 H (80.0-100.0) fL Lymphocytes # 0.7 L (1.0-4.8) k/uL Assessment and Plan Assessment: 1 Bilateral pulmonary emboli with right lower extremity DVT 2 History of previous PE/DVT, currently off anticoagulants 3 Chronic tobacco dependence 4 History of right thyroid nodule Plan: The patient was seen and evaluated by Dr. Hills He has been transitioned to Eliquis He will need lifelong anticoagulation Educated regarding the importance of complete smoking cessation Educated regarding the importance of cancer screening Follow-up in our office in 1-2 weeks' time I, the cosigning physician, performed a history & physical examination of the patient. Lungs sounds are clear. Maintaining good O2 saturations in the 90s on room air. I discussed the assessment and plan of care with my nurse practitioner, Kristel Canela. I attest to the above note as dictated by her.
--- NOTE | 2020-06-29 23:42 | P.DS ---
Providers Date of admission: 06/26/20 13:03 Attending physician: Oneal Talbert MD Consults: 06/26/20 12:57 Consult Physician Urgent Consulting Provider: Scott Hills Consult Reason/Comments: b/l PE and DVT Do you want consulting provider notified?: Yes [facility] Course: Diagnoses: bilateral pulmonary embolism right Acute deep venous thrombosis stable right thyroid nodule nicotine dependence Hospital course: this is a pleasant 59 years old male with past medical history of DVT, stopped taking his oral to 1 year ago because of insurance and he could not afford it. He smokes cigarettes. he went to see Dr. Albarado for bilateral leg swelling who referred him to the hospital. Patient also complains from exertional dyspnea but no chest pain or coughing. CT of the chest: Showing bilateral acute pulmonary embolism with stable right thyroid nodule CT of the abdomen and pelvis with contrast showing right lower extremity DVT in the emergency room patient was started with heparin drip and normal saline at 75 mL/h patient has been evaluated by business technology architect. She was switch to oral Eliquis,copay for eliquis is $0. Patient was instructed to take double the do se at 10 mg twice daily for the first week and then continue with 5 mg twice daily thereafter and he agrees. On the day of discharge patient denies chest pain or dyspnea, no abdominal pain, no change in urine or bowel habits. His leg swelling and pain improving. No fever Problems and management plan were discussed with the patient and he verbalized understanding and acceptance Patient was found stable and can be discharged home however he needs follow-up as an outpatient. Patient was instructed to follow up with PCP within one week and patient agrees with the appointments made for him with Dr. Albarado and Dr. Monroe the business technology architect. Also patient was referred to the accounting generalist for further workup and he agrees to call and make appointment and follow-up with the other appointments as above Gen: patient is a AAOx3, no distress CVS: S1-S2, RRR, no murmur Lungs: B/L CTA, no wheezing Abdomen: soft, no distention, no tenderness, positive bowel sounds Extremity: Mild bilateral leg edema or induration Time spent more than 35 minutes Plan - Discharge Summary Discharge Rx Participant: No New Discharge Prescriptions: New Apixaban [Eliquis] 5 mg PO DIRECTED #60 tab Continue Nicotine 14Mg/24Hr Patch [Habitrol] 1 patch TRANSDERM DAILY #14 patch QUEtiapine FUMARATE [SEROquel] 25 mg PO HS #30 tablet Budesonide/Formoterol Fumarate [Symbicort 160-4.5 Mcg Inhaler] 2 puff INHALATION RT-BID Vivitrol 380mg/Ml 380 mg IM QMONTHLY Discharge Medication List Nicotine 14Mg/24Hr Patch [Habitrol] 1 patch TRANSDERM DAILY #14 patch 06/04/20 [Rx] QUEtiapine FUMARATE [SEROquel] 25 mg PO HS #30 tablet 06/04/20 [Rx] Budesonide/Formoterol Fumarate [Symbicort 160-4.5 Mcg Inhaler] 2 puff INHALATION RT-BID 06/26/20 [History] Vivitrol 380mg/Ml 380 mg IM QMONTHLY 06/26/20 [History] Apixaban [Eliquis] 5 mg PO DIRECTED #60 tab 06/27/20 [Rx] Follow up Appointment(s)/Referral(s): Scott Hills MD [STAFF PHYSICIAN] - 07/10/20 2:15 pm (business technology architect ) Po Danielson MD [STAFF PHYSICIAN] - 10 Days (The office will call with appointment date and time. ) Ghada Albarado MD [Primary Care Provider] - 07/03/20 1:30 pm Patient Instructions/Handouts: Pulmonary Embolism (DC), Deep Vein Thrombosis (DC), Safe Use of Anticoagulants (DC) Activity/Diet/Wound Care/Special Instructions: pts copay for Eliquis is $0 Discharge Disposition: HOME SELF-CARE
== END 2020-06-28 14:02 | disposition home or self-care (01) ==
LOC: EC 11:06 → 3SCARD 13:03 → INTOOBSV 13:03 → 3SCARD 13:53 → UNDODISIN 06-28 14:02
PROVIDERS: ADMIT Internal Medicine; ATTEND Internal Medicine
DX: I82.401 Acute embolism and thrombosis of unspecified deep veins of right lower extremity (principal); I26.99 Other pulmonary embolism without acute cor pulmonale; F17.210 Nicotine dependence, cigarettes, uncomplicated; E04.1 Nontoxic single thyroid nodule; M19.90 Unspecified osteoarthritis, unspecified site; F10.11 Alcohol abuse, in remission; T45.516A Underdosing of anticoagulants, initial encounter; Z91.120 Patient's intentional underdosing of medication regimen due to financial hardship; Z86.711 Personal history of pulmonary embolism; Z86.718 Personal history of other venous thrombosis and embolism; Z88.0 Allergy status to penicillin; Z91.81 History of falling; Z86.14 Personal history of Methicillin resistant Staphylococcus aureus infection; Z79.51 Long term (current) use of inhaled steroids; Z79.899 Other long term (current) drug therapy; Z86.73 Personal history of transient ischemic attack (TIA), and cerebral infarction without residual deficits; Z80.1 Family history of malignant neoplasm of trachea, bronchus and lung; Z82.49 Family history of ischemic heart disease and other diseases of the circulatory system
CPT/HCPCS: 96366 ×3; 96376; 96365; 96375; 99291; 36415; 93005; 93306; 80053; 83605; 84484; 85025 ×3; 85610; 85730 ×3; 93970; 71275; 74177; G0378 ×3; J1644 ×3; J2270; Q9967

== ENCOUNTER → 2020-06-26 | Outpatient (CLI) | payer OTHER ==
--- NOTE | 2020-06-26 11:57 | US ---
EXAMINATION TYPE: US venous doppler duplex LE DATE OF EXAM: 06/26/2020 10:52 AM COMPARISON: NONE CLINICAL HISTORY: M79.661 pain in rt leg, M79.662 pain in lt leg,. h/o dvt in right calf 3 years prio r, not on thinners, bilateral swelling SIDE PERFORMED: Bilateral TECHNIQUE: The lower extremity deep venous system is examined utilizing real time linear array sonog mateo with graded compression, doppler sonography and color-flow sonography. VESSELS IMAGED: External Iliac Vein (EIV) Common Femoral Vein Deep Femoral Vein Greater Saphenous Vein * Femoral Vein Popliteal Vein Small Saphenous Vein * Proximal Calf Veins (* superficial vessels) Right Leg: Intraluminal echogenicity with noncompressibility from the external iliac vein through th e popliteal and proximal calf veins. Left Leg: There is normal flow, compressibility, vascular waveforms. IMPRESSION: 1. Extensive right lower extremity deep venous thrombosis from the visualized external iliac vein thr ough the proximal calf veins. CT abdomen pelvis may be of benefit to see extent of thrombosis more pr oximally. 2. No deep venous thrombosis of the left lower extremity. Dr. Jocelyn Sims discussed findings with Dr. Berlin Moyer on 06/26/2020 at 11:53 AM, and resul ts were acknowledged.
== END | disposition home or self-care (01) ==
LOC: RADUSWWP 10:04
PROVIDERS: ATTEND Internal Medicine
DX: I82.401 Acute embolism and thrombosis of unspecified deep veins of right lower extremity (principal); Z88.0 Allergy status to penicillin
CPT/HCPCS: 93970

== ENCOUNTER 2020-07-17 08:37 | Observation (INO) | payer OTHER ==
[2020-07-17] MEDS ORDERED: LORazepam 2 MG/ML INJ IV STA (09:14)
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
[2020-07-17 10:02] LABS: ALT 25 U/L (4-49); AST 41 U/L (17-59); African American GFR (CKD) >90 (>60 ml/min/1.73 sqM); Albumin 3.7 g/dL (3.5-5.0); Alkaline Phosphatase 67 U/L (38-126); Anion Gap 5 mmol/L; Blood Urea Nitrogen 10 mg/dL (9-20); Calcium 9.1 mg/dL (8.4-10.2); Carbon Dioxide 31 mmol/L (22-30); Chloride 95 mmol/L (98-107); Glucose 125 mg/dL (74-99); INR 0.9 (<1.2); Magnesium 1.4 mg/dL (1.6-2.3); Non-African American GFR(CKD) >90 (>60 ml/min/1.73 sqM); Partial Thromboplastin Time 22.6 sec (22.0-30.0); Potassium 4.3 mmol/L (3.5-5.1); Prothrombin Time 9.8 sec (9.0-12.0); Sodium 131 mmol/L (137-145); Total Bilirubin 1.5 mg/dL (0.2-1.3); Total Protein 6.3 g/dL (6.3-8.2)
[2020-07-17 10:15] LABS: Basophils % (A) 1 %; Eosinophils % (A) 1 %; HCT 46.3 % (39.0-53.0); HGB 14.5 gm/dL (13.0-17.5); Lymphocytes # (A) 0.5 k/uL (1.0-4.8); Lymphocytes % (A) 10 %; MCH 31.4 pg (25.0-35.0); MCHC 31.3 g/dL (31.0-37.0); MCV 100.4 fL (80.0-100.0); Macrocytosis Slight; Mean Platelet Volume 7.1; Monocytes # (A) 0.4 k/uL (0-1.0); Monocytes % (A) 7 %; Neutrophils # (A) 4.5 k/uL (1.3-7.7); Neutrophils % (A) 82 %; RBC 4.62 m/uL (4.30-5.90); WBC 5.5 k/uL (3.8-10.6)
[2020-07-17 10:19] LABS: Platelet Count 127 k/uL (150-450)
--- NOTE | 2020-07-17 10:24 | CT ---
EXAMINATION TYPE: CT chest angio for PE DATE OF EXAM: 07/17/2020 COMPARISON: CTA chest June 26, [address] August 21, 2019. HISTORY: SOB/hx PE's CT DLP: 397.5 mGycm Automated exposure control for dose reduction was used. CONTRAST: CT Chest for pulmonary embolism performed with with IV Contrast, patient injected with 100 mL of Isov ue 370. FINDINGS: LUNGS: Exam slightly suboptimal as patient unable to hold breath especially for evaluation for subcen timeter nodules. Lungs are grossly clear without suspicious new focal consolidation or groundglass op acity. No pleural effusion or pneumothorax is seen bilaterally. No suspicious masses. MEDIASTINUM: There is satisfactory enhancement of the pulmonary artery and its branches, there is per sistent embolism in the right lower lobe branch beginning on axial image 72 with segmental and subseg mental extension, this is perhaps slightly larger from most recent study there is some residual lingu lar thrombus axial image 62 improved from most recent study. Interval resolution of subsegmental thro mbus left lower lobe there are axial image 69 on current study. There are new smaller segmental and s ubsegmental thrombi in the medial left lower lobe branches beginning near axial image 82 through 87. There are no new greater than 1 cm hilar or mediastinal lymph nodes. No cardiomegaly or pericardia l effusion is seen. There is 2.4 cm lower pole right thyroid nodule extending into isthmus axial henry ge 4 unchanged from prior studies. No new right ventricular dilatation. OTHER: Visualized liver remains markedly low dense consistent with diffuse fatty infiltration IMPRESSION: Persistent bilateral pulmonary lower lung emboli with areas of improvement but also areas of worsening and new areas identified. No new RV strain. No new acute pulmonary process.
[2020-07-17] MEDS ORDERED: NALOXONE 0.4 MG/ML 1 ML VIAL IV PRN (11:20)
[2020-07-17] MEDS ORDERED: HEPARIN SODIUM,PORCINE 5,000 UNIT/ML 1 ML VIAL IV PRN (11:21)
[2020-07-17] MEDS ORDERED: THIAMINE 100 MG/ML 2 ML VIAL IM STA (11:21)
[2020-07-17] MEDS ORDERED: HEPARIN SODIUM,PORCINE 10,000 UNIT/ML 1 ML VIAL IV ONE (11:21)
[2020-07-17] MEDS ORDERED: LORazepam 2 MG/ML INJ IV PRN ×3 (11:21)
[2020-07-17] MEDS ORDERED: MAGNESIUM SULFATE-D5W PMX 1 GM in DEXTROSE/WATER 1 100ML.BAG IVPB STA (11:23)
[2020-07-17] MEDS: SODIUM CHLORIDE 0.9% 1,000 ML IV SCH (12:12)
[2020-07-17] MEDS: HEPARIN SOD,PORK IN 0.45% NACL 25,000 UNIT in 0.45% NACL 1 250ML.BAG IV SCH (12:17)
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
[2020-07-17] MEDS: NICOTINE 21MG/24HR PATCH TRANSDERM SCH (14:10)
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
[2020-07-17] MEDS: THIAMINE 100 MG TAB PO SCH (19:44)
[2020-07-17] MEDS: FAMOTIDINE 20 MG/2 ML VIAL IV SCH (23:13)
[2020-07-18] MEDS ORDERED: LOPERAMIDE 2 MG CAP PO STA (03:26)
[2020-07-18 05:04] LABS: INR 0.9 (<1.2); Partial Thromboplastin Time 25.2 sec (22.0-30.0); Prothrombin Time 9.9 sec (9.0-12.0)
[2020-07-18 06:01] LABS: Basophils % (A) 1 %; Eosinophils # (A) 0.2 k/uL (0-0.7); Eosinophils % (A) 8 %; HCT 41.3 % (39.0-53.0); HGB 13.5 gm/dL (13.0-17.5); Lymphocytes # (A) 0.7 k/uL (1.0-4.8); Lymphocytes % (A) 23 %; MCH 32.5 pg (25.0-35.0); MCHC 32.7 g/dL (31.0-37.0); MCV 99.4 fL (80.0-100.0); Mean Platelet Volume 7.7; Monocytes # (A) 0.2 k/uL (0-1.0); Monocytes % (A) 6 %; Neutrophils # (A) 1.9 k/uL (1.3-7.7); Neutrophils % (A) 60 %; Platelet Count 102 k/uL (150-450); RBC 4.15 m/uL (4.30-5.90); RDW 12.9 % (11.5-15.5); WBC 3.1 k/uL (3.8-10.6)
[2020-07-18] MEDS: SODIUM CHLORIDE 0.9% 1,000 ML IV SCH (06:15)
[2020-07-18] MEDS: HEPARIN SOD,PORK IN 0.45% NACL 25,000 UNIT in 0.45% NACL 1 250ML.BAG IV SCH (06:20)
[2020-07-18] MEDS: THIAMINE 100 MG TAB PO SCH (09:31)
[2020-07-18] MEDS: NICOTINE 21MG/24HR PATCH TRANSDERM SCH (09:31)
[2020-07-18] MEDS: FAMOTIDINE 20 MG/2 ML VIAL IV SCH (09:31)
[2020-07-18 09:48] VITALS: RESP 20
[2020-07-18] MEDS ORDERED: APIXABAN 5 MG TAB PO SCH (10:15)
[2020-07-18 11:11] VITALS: BP 116/81; PULSE 64; TEMP 98.2
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
[2020-07-18] MEDS ORDERED: FAMOTIDINE 20 MG TAB PO SCH (21:00)
--- NOTE | 2020-07-19 00:06 | P.DS ---
Providers Date of admission: 07/17/20 11:20 Attending physician: Oneal Talbert MD Consults: 07/17/20 11:23 Consult Physician Urgent Consulting Provider: Po Danielson Consult Reason/Comments: persistant/recurrent PE Do you want consulting provider notified?: Yes 07/17/20 11:26 Consult Physician Routine Consulting Provider: Scott Hills Consult Reason/Comments: persistent PE Do you want consulting provider notified?: Yes Primary care physician: Per Urr[place]ia Hospital Course: Diagnoses Acute dyspnea, secondary to pulmonary infarct, from fragmented existing pulmonary embolism. Patient is compliant with Eliquis Recent bilateral pulmonary embolism Recent right Acute deep venous thrombosis Bilateral leg swelling secondary to above alcohol abuse, at-risk of alcohol withdrawal stable right thyroid nodule nicotine dependence hospital course: this is a pleasant 59 years old male with past medical history of DVT, he was recently diagnosed with right DVT and bilateral PE in this hospital on 06/26- 06/28, at that time he was noncompliant with his anticoagulation because of insurance issues. he was discharge on Eliquis 10 mg twice daily X7 days to be followed by 5 mg twice daily thereafter, patient states that he has been compliant with his Eliquis as instructed, and occasionally has dyspnea especially on exertion however prior to hospitalization his dyspnea got significantly worse with exertion, (CTA of the chest showing persistent bilateral pulmonary lower lung emboli with areas of improvement but also areas of worsening and new areas identified. No new RV strain. No new acute pulmonary process). Patient has been evaluated by payroll analyst and bench assembler electrical, as per discussion with my bench assembler electrical team of [facility] patient previously diagnosed PE got recommended related to distal pul monary infarction causing patient's symptoms, currently patient dyspnea is significantly improved. Patient denies chest pain. No coughing or hemoptysis on day of discharge. Patient was cleared for discharge by pulmonary and hematology team's Problems and management plan were discussed with the patient and he verbalized understanding and acceptance Patient was found stable and can be discharged home however he needs follow-up as an outpatient. Patient was instructed to follow up with PCP Dr. Albarado within one week and patient agrees Patient agrees with the appointments made for him with Dr. Monroe on 07/[address] Danielson on 07/26 patient agrees. Another prescription for Eliquis is provided, patient told me his copay is $0 Gen: patient is a AAOx3, no distress CVS: S1-S2, RRR, no murmur Lungs: B/L CTA, no wheezing Abdomen: soft, no distention, no tenderness, positive bowel sounds Extremity: no leg edema or induration Time spent more than 35 minutes Plan - Discharge Summary Discharge Rx Participant: No New Discharge Prescriptions: Continue Nicotine 14Mg/24Hr Patch [Habitrol] 1 patch TRANSDERM DAILY #14 patch QUEtiapine FUMARATE [SEROquel] 25 mg PO HS #30 tablet Budesonide/Formoterol Fumarate [Symbicort 160-4.5 Mcg Inhaler] 2 puff INHALATION RT-BID Vivitrol 380mg/Ml 380 mg IM QMONTHLY Changed Apixaban [Eliquis] 5 mg PO BID #60 tab Discharge Medication List Nicotine 14Mg/24Hr Patch [Habitrol] 1 patch TRANSDERM DAILY #14 patch 06/04/20 [Rx] QUEtiapine FUMARATE [SEROquel] 25 mg PO HS #30 tablet 06/04/20 [Rx] Budesonide/Formoterol Fumarate [Symbicort 160-4.5 Mcg Inhaler] 2 puff INHALATION RT-BID 06/26/20 [History] Vivitrol 380mg/Ml 380 mg IM QMONTHLY 06/26/20 [History] Apixaban [Eliquis] 5 mg PO BID #60 tab 07/18/20 [Rx] Follow up Appointment(s)/Referral(s): Scott Hills MD [STAFF PHYSICIAN] - 07/31/20 2:15 pm Po Danielson MD [STAFF PHYSICIAN] - 07/26/20 9:00 am Ghada Albarado MD [Primary Care Provider] - 1-2 days (please called office to schedule follow up when open) Patient Instructions/Handouts: Pulmonary Embolism (DC) Activity/Diet/Wound Care/Special Instructions: Resume previous diet Activity is restricted till you see your doctor we Recommend with your Eliquis, keep taking Eliquis as instructed twice daily every day, otherwise she'll be at risk of recurrent pulmonary embolism and/or Discharge Disposition: HOME SELF-CARE
== END 2020-07-18 14:32 | disposition home or self-care (01) ==
LOC: EC 08:37 → INTOOBSV 11:20 → 3SCARD 11:20 → UNDODISIN 07-18 14:32 → 3SCARD 07-18 14:43
PROVIDERS: ADMIT Internal Medicine; ATTEND Internal Medicine
DX: I26.99 Other pulmonary embolism without acute cor pulmonale (principal); F10.139 Alcohol abuse with withdrawal, unspecified; M19.90 Unspecified osteoarthritis, unspecified site; M79.89 Other specified soft tissue disorders; T45.516A Underdosing of anticoagulants, initial encounter; E87.1 Hypo-osmolality and hyponatremia; E83.42 Hypomagnesemia; E04.1 Nontoxic single thyroid nodule; D69.6 Thrombocytopenia, unspecified; Z91.81 History of falling; R51.9 Headache, unspecified; F17.210 Nicotine dependence, cigarettes, uncomplicated; Z86.73 Personal history of transient ischemic attack (TIA), and cerebral infarction without residual deficits; Z86.718 Personal history of other venous thrombosis and embolism; Z86.14 Personal history of Methicillin resistant Staphylococcus aureus infection; Z87.820 Personal history of traumatic brain injury; Z98.890 Other specified postprocedural states; Z82.49 Family history of ischemic heart disease and other diseases of the circulatory system; Z80.1 Family history of malignant neoplasm of trachea, bronchus and lung; Z79.01 Long term (current) use of anticoagulants; Z79.51 Long term (current) use of inhaled steroids; Z79.899 Other long term (current) drug therapy; Z88.0 Allergy status to penicillin
CPT/HCPCS: 96376 ×2; 96365; 96366 ×2; 96367; 96372; 96375; 99285; 36415; 93005; 83880; 80053; 83605; 83735; 84484; 85025 ×2; 85610 ×2; 85730 ×2; 71275; G0378 ×2; S4990 ×2; J2060; J1644 ×4; J3411; J3475; Q9967; 96361

== ENCOUNTER 2020-07-23 15:02 | Observation (INO) | payer OTHER ==
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
[2020-07-23 16:54] LABS: Basophils % (A) 1 %; Eosinophils # (A) 0.2 k/uL (0-0.7); Eosinophils % (A) 5 %; HCT 40.2 % (39.0-53.0); HGB 13.1 gm/dL (13.0-17.5); Lymphocytes # (A) 1.1 k/uL (1.0-4.8); Lymphocytes % (A) 20 %; MCH 31.9 pg (25.0-35.0); MCHC 32.7 g/dL (31.0-37.0); MCV 97.7 fL (80.0-100.0); Mean Platelet Volume 7.4; Monocytes # (A) 0.4 k/uL (0-1.0); Monocytes % (A) 7 %; Neutrophils # (A) 3.4 k/uL (1.3-7.7); Neutrophils % (A) 66 %; Platelet Count 112 k/uL (150-450); RBC 4.11 m/uL (4.30-5.90); RDW 13.6 % (11.5-15.5); WBC 5.2 k/uL (3.8-10.6)
[2020-07-23 17:02] LABS: African American GFR (CKD) >90 (>60 ml/min/1.73 sqM); Anion Gap 7 mmol/L; Blood Urea Nitrogen 11 mg/dL (9-20); Calcium 8.1 mg/dL (8.4-10.2); Carbon Dioxide 24 mmol/L (22-30); Chloride 106 mmol/L (98-107); Glucose 104 mg/dL (74-99); Non-African American GFR(CKD) >90 (>60 ml/min/1.73 sqM); Potassium 3.7 mmol/L (3.5-5.1); Sodium 137 mmol/L (137-145)
--- NOTE | 2020-07-23 17:06 | US ---
EXAMINATION TYPE: US venous doppler duplex LE RT DATE OF EXAM: 07/23/2020 4:57 PM COMPARISON: NONE CLINICAL HISTORY: phlegmasia alba dolens. edema right leg, history of DVT SIDE PERFORMED: right TECHNIQUE: The lower extremity deep venous system is examined utilizing real time linear array sonog mateo with graded compression, doppler sonography and color-flow sonography. VESSELS IMAGED: External Iliac Vein (EIV) Common Femoral Vein Deep Femoral Vein Greater Saphenous Vein * Femoral Vein Popliteal Vein Small Saphenous Vein * Proximal Calf Veins (* superficial vessels) Right Leg: +positive for DVT right CFV, right femoral vein, right popliteal vein IMPRESSION: There is evidence of acute deep vein thrombosis involving the entire femoral and poplitea l vein.
[2020-07-23 17:15] LABS: INR 0.9 (<1.2); Partial Thromboplastin Time 22.4 sec (22.0-30.0); Prothrombin Time 9.6 sec (9.0-12.0)
[2020-07-23] MEDS ORDERED: NALOXONE 0.4 MG/ML 1 ML VIAL IV PRN (17:31)
[2020-07-23] MEDS ORDERED: ACETAMINOPHEN TAB 325 MG TAB PO PRN (17:31)
[2020-07-23] MEDS: oxyCODONE-APAP 5-325MG 1 EACH TAB PO PRN ×2 (20:24→23:47)
[2020-07-23] MEDS: APIXABAN 5 MG TAB PO SCH (20:25)
[2020-07-24] MEDS: oxyCODONE-APAP 5-325MG 1 EACH TAB PO PRN ×2 (05:47→11:14)
[2020-07-24] MEDS: APIXABAN 5 MG TAB PO SCH (07:54)
[2020-07-24 08:00] VITALS: BP 162/92; PULSE 74; RESP 16; TEMP 98.4
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
[2020-07-24] MEDS ORDERED: traMADol 50 MG TAB PO STA (12:12)
--- NOTE | 2020-07-24 12:48 | P.DS ---
Providers Date of admission: 07/23/20 17:31 Attending physician: Yee Calix Consults: 07/23/20 17:29 Consult Physician Routine Consulting Provider: Gurwinder Siegel Consult Reason/Comments: phelgmasia RLE Do you want consulting provider notified?: Already Contacted Primary care physician: [facility] Course: Please refer to my HPI for further details Patient Condition at Discharge: Fair Plan - Discharge Summary Discharge Rx Participant: No New Discharge Prescriptions: New Naproxen [Naprosyn] 500 mg PO Q12HR PRN #30 tab PRN Reason: Pain Famotidine [Pepcid] 20 mg PO BID #30 tablet Continue Nicotine 14Mg/24Hr Patch [Habitrol] 1 patch TRANSDERM DAILY #14 patch Budesonide/Formoterol Fumarate [Symbicort 160-4.5 Mcg Inhaler] 2 puff INHALATION RT-BID PRN PRN Reason: Shortness Of Breath Vivitrol 380mg/Ml 380 mg IM QMONTHLY Apixaban [Eliquis] 5 mg PO BID #60 tab Discharge Medication List Nicotine 14Mg/24Hr Patch [Habitrol] 1 patch TRANSDERM DAILY #14 patch 06/04/20 [Rx] Budesonide/Formoterol Fumarate [Symbicort 160-4.5 Mcg Inhaler] 2 puff INHALATION RT-BID PRN 06/26/20 [History] Vivitrol 380mg/Ml 380 mg IM QMONTHLY 06/26/20 [History] Apixaban [Eliquis] 5 mg PO BID #60 tab 07/18/20 [Rx] Famotidine [Pepcid] 20 mg PO BID #30 tablet 07/24/20 [Rx] Naproxen [Naprosyn] 500 mg PO Q12HR PRN #30 tab 07/24/20 [Rx] Follow up Appointment(s)/Referral(s): Po Danielson MD [STAFF PHYSICIAN] - As Needed (Keep your appointment that is already made) Ghada Albarado MD [Primary Care Provider] - 1-2 days Patient Instructions/Handouts: Deep Vein Thrombosis (DC) Activity/Diet/Wound Care/Special Instructions: Important to continue Eliquis as prescribed wear jeanette hose. preferably thigh high but knee high if thigh high not tolerated elevate extremities to decrease swelling Discharge Disposition: HOME SELF-CARE
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
== END 2020-07-24 14:15 | disposition home or self-care (01) ==
LOC: EC 15:02 → 1SOBS 17:31
PROVIDERS: ADMIT Hospitalist; ATTEND Hospitalist
DX: I82.411 Acute embolism and thrombosis of right femoral vein (principal); I82.431 Acute embolism and thrombosis of right popliteal vein; M19.90 Unspecified osteoarthritis, unspecified site; E87.1 Hypo-osmolality and hyponatremia; E83.42 Hypomagnesemia; K70.10 Alcoholic hepatitis without ascites; D69.6 Thrombocytopenia, unspecified; F17.210 Nicotine dependence, cigarettes, uncomplicated; E66.9 Obesity, unspecified; Z71.89 Other specified counseling; Z71.6 Tobacco abuse counseling; Z86.718 Personal history of other venous thrombosis and embolism; Z86.711 Personal history of pulmonary embolism; Z79.01 Long term (current) use of anticoagulants; Z79.51 Long term (current) use of inhaled steroids; Z79.899 Other long term (current) drug therapy; Z88.0 Allergy status to penicillin; Z86.73 Personal history of transient ischemic attack (TIA), and cerebral infarction without residual deficits; Z91.81 History of falling; Z86.14 Personal history of Methicillin resistant Staphylococcus aureus infection; Z98.890 Other specified postprocedural states; Z87.39 Personal history of other diseases of the musculoskeletal system and connective tissue; Z68.28 Body mass index [BMI] 28.0-28.9, adult; Z82.49 Family history of ischemic heart disease and other diseases of the circulatory system; Z80.1 Family history of malignant neoplasm of trachea, bronchus and lung; Z81.2 Family history of tobacco abuse and dependence
CPT/HCPCS: 99285; 36415; 93005; 80048; 84484; 85025; 85610; 85730; 93971; G0378 ×2

== ENCOUNTER 2020-08-06 09:23 | Emergency (ER) | payer OTHER ==
[2020-08-06] MEDS ORDERED: MORPHINE SULFATE 4 MG/ML SYRINGE IV STA (09:40)
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
[2020-08-06 10:43] LABS: Basophils % (A) 1 %; Eosinophils # (A) 0.1 k/uL (0-0.7); Eosinophils % (A) 3 %; HCT 42.3 % (39.0-53.0); HGB 13.5 gm/dL (13.0-17.5); Lymphocytes # (A) 0.6 k/uL (1.0-4.8); Lymphocytes % (A) 13 %; MCH 31.2 pg (25.0-35.0); MCHC 31.8 g/dL (31.0-37.0); MCV 97.9 fL (80.0-100.0); Mean Platelet Volume 6.6; Monocytes # (A) 0.3 k/uL (0-1.0); Monocytes % (A) 7 %; Neutrophils # (A) 3.4 k/uL (1.3-7.7); Neutrophils % (A) 75 %; RBC 4.32 m/uL (4.30-5.90); RDW 14.2 % (11.5-15.5); WBC 4.6 k/uL (3.8-10.6)
[2020-08-06 10:49] LABS: Platelet Count 256 k/uL (150-450)
[2020-08-06 10:55] LABS: African American GFR (CKD) >90 (>60 ml/min/1.73 sqM); Anion Gap 5 mmol/L; Blood Urea Nitrogen 9 mg/dL (9-20); Calcium 8.7 mg/dL (8.4-10.2); Carbon Dioxide 26 mmol/L (22-30); Chloride 107 mmol/L (98-107); Glucose 99 mg/dL (74-99); Non-African American GFR(CKD) >90 (>60 ml/min/1.73 sqM); Potassium 4.3 mmol/L (3.5-5.1); Sodium 138 mmol/L (137-145)
[2020-08-06 11:03] VITALS: BP 146/96
[2020-08-06 11:08] LABS: INR 0.9 (<1.2); Partial Thromboplastin Time 24.7 sec (22.0-30.0); Prothrombin Time 9.5 sec (9.0-12.0)
[2020-08-06 11:51] VITALS: PULSE 92; RESP 146; TEMP 98.1
== END 2020-08-06 11:51 | disposition home or self-care (01) ==
LOC: EC 09:23
DX: M79.661 Pain in right lower leg (principal); M19.90 Unspecified osteoarthritis, unspecified site; F17.200 Nicotine dependence, unspecified, uncomplicated; M79.89 Other specified soft tissue disorders; Z79.891 Long term (current) use of opiate analgesic; Z88.0 Allergy status to penicillin; Z86.711 Personal history of pulmonary embolism; Z86.718 Personal history of other venous thrombosis and embolism; Z86.73 Personal history of transient ischemic attack (TIA), and cerebral infarction without residual deficits
CPT/HCPCS: 36415; 93005; 80048; 84484; 85025; 85610; 85730; 99283; 96374; J2270

== ENCOUNTER → 2020-08-12 | Outpatient (CLI) | payer OTHER ==
--- NOTE | 2020-08-12 11:29 | CT ---
EXAMINATION TYPE: CT brain wo con DATE OF EXAM: 08/12/2020 COMPARISON: No prior brain imaging at this location. INDICATION: follow up Subdural hemorrhage, continued headache, dizziness DLP: 971 mGycm, Automated exposure control for dose reduction was used. CONTRAST: None CT of the brain is performed utilizing 3 mm thick sections through the posterior fossa and 3 mm thick sections through the remaining calvarium. Study is performed within 24 hours of arrival to the hosp ital. No abnormal hyperdensity is present to suggest an acute intracranial hemorrhage. No subacute or old h emorrhage is identified. The patient's reported subdural hematoma is not identified. No mass lesion is evident. No acute infarcts are evident. Ventricles and sulci are slightly prominent for the patient age. Paranasal sinuses and mastoid air cells within the [id number] are clear. IMPRESSIONS: 1. Minimal age-related atrophy. 2. No suspicious acute or subacute hemorrhage.
== END | disposition home or self-care (01) ==
LOC: RADCTMAIN 10:33
PROVIDERS: ATTEND Internal Medicine Hematology & Oncology
DX: G31.1 Senile degeneration of brain, not elsewhere classified (principal); Z88.0 Allergy status to penicillin
CPT/HCPCS: 70450

== ENCOUNTER 2020-10-01 00:02 | Emergency (ER) | payer OTHER ==
[2020-10-01 00:08] VITALS: RESP 18; TEMP 98
[2020-10-01] MEDS ORDERED: SODIUM CHLORIDE 0.9% 1,000 ML IV STA ×2 (00:09→01:33)
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
[2020-10-01 00:53] LABS: Basophils # (A) 0.1 k/uL (0-0.2); Basophils % (A) 2 %; Eosinophils # (A) 0.1 k/uL (0-0.7); Eosinophils % (A) 3 %; HCT 42.6 % (39.0-53.0); HGB 14.8 gm/dL (13.0-17.5); Lymphocytes % (A) 29 %; MCH 31.7 pg (25.0-35.0); MCHC 34.6 g/dL (31.0-37.0); Monocytes # (A) 0.2 k/uL (0-1.0); Monocytes % (A) 6 %; Neutrophils # (A) 1.9 k/uL (1.3-7.7); Neutrophils % (A) 58 %; Platelet Count 255 k/uL (150-450); RBC 4.66 m/uL (4.30-5.90); RDW 13.3 % (11.5-15.5); WBC 3.3 k/uL (3.8-10.6)
[2020-10-01 01:01] LABS: African American GFR (CKD) >90 (>60 ml/min/1.73 sqM); Albumin 4.2 g/dL (3.5-5.0); Anion Gap 12 mmol/L; Carbon Dioxide 21 mmol/L (22-30); Chloride 106 mmol/L (98-107); Glucose 76 mg/dL (74-99); Non-African American GFR(CKD) >90 (>60 ml/min/1.73 sqM); Sodium 139 mmol/L (137-145); Total Protein 7.4 g/dL (6.3-8.2)
[2020-10-01 01:02] LABS: MCV 91.5 fL (80.0-100.0)
[2020-10-01 01:03] LABS: Calcium 8.6 mg/dL (8.4-10.2); Creatine Kinase 87 U/L (55-170); Total Bilirubin 1.1 mg/dL (0.2-1.3)
[2020-10-01 01:04] LABS: ALT 26 U/L (4-49); AST 49 U/L (17-59); Alcohol 234 mg/dL; Blood Urea Nitrogen 13 mg/dL (9-20); Magnesium 1.6 mg/dL (1.6-2.3); Potassium 5.4 mmol/L (3.5-5.1)
[2020-10-01 01:05] LABS: Alkaline Phosphatase 65 U/L (38-126)
[2020-10-01 01:23] LABS: INR 0.9 (<1.2); Partial Thromboplastin Time 22.8 sec (22.0-30.0); Prothrombin Time 10.2 sec (9.0-12.0)
--- NOTE | 2020-10-01 01:28 | XR ---
EXAM: XR Chest, 2 Views CLINICAL HISTORY: ITS.REASON XR Reason: difficulty breathing TECHNIQUE: Frontal and lateral views of the chest. COMPARISON: CTA Chest dated 07/17/2020 FINDINGS: Lungs: Unremarkable. No consolidation. Pleural space: Unremarkable. No pneumothorax. Heart: Unremarkable. No cardiomegaly. Mediastinum: Unremarkable. Bones/joints: Unremarkable. IMPRESSION: No acute intrathoracic process.
[2020-10-01] MEDS ORDERED: MORPHINE SULFATE 4 MG/ML SYRINGE IVP STA (01:33)
[2020-10-01] MEDS ORDERED: diphenhydrAMINE 50 MG/ML 1 ML VIAL IVP STA (01:34)
--- NOTE | 2020-10-01 02:16 | CT ---
EXAM: CT Angiography Chest With Intravenous Contrast CLINICAL HISTORY: ITS.REASON CT Reason: pe TECHNIQUE: Axial computed tomographic angiography images of the chest with intravenous contrast. CTDI is 16.87 mGy and DLP is 438.3 mGy-cm. This CT exam was performed using one or more of the following dose reduction techniques: automated exposure control, adjustment of the mA and/or kV according to patient size, and/or use of iterative reconstruction technique. MIP reconstructed images were created and reviewed. COMPARISON: 07/17/2020 FINDINGS: Pulmonary arteries: Unremarkable. No pulmonary embolism. Interval resolution of previously seen bilateral lower lobe pulmonary emboli from 07/17/2020. Aorta: No acute findings. No thoracic aortic aneurysm. Lungs: Unremarkable. No mass. No consolidation. Pleural space: Unremarkable. No significant effusion. No pneumothorax. Heart: Unremarkable. No cardiomegaly. No significant pericardial effusion. No evidence of RV dysfunction. Bones/joints: No acute fracture. No dislocation. Soft tissues: Hepatic steatosis. Lymph nodes: Unremarkable. No enlarged lymph nodes. IMPRESSION: 1. No acute pulmonary embolism. Interval resolution of previously seen bilateral lower lobe pulmonary emboli from 07/17/2020. 2. No acute intrathoracic process. 3. Hepatic steatosis.
[2020-10-01 02:56] VITALS: BP 110/60; PULSE 80
== END 2020-10-01 02:58 | disposition home or self-care (01) ==
LOC: EC 00:02
DX: F10.129 Alcohol abuse with intoxication, unspecified (principal); F41.9 Anxiety disorder, unspecified; M19.90 Unspecified osteoarthritis, unspecified site; F17.200 Nicotine dependence, unspecified, uncomplicated; Z88.0 Allergy status to penicillin; Z86.718 Personal history of other venous thrombosis and embolism; Z79.899 Other long term (current) drug therapy; Z79.01 Long term (current) use of anticoagulants; Z86.711 Personal history of pulmonary embolism; Z86.73 Personal history of transient ischemic attack (TIA), and cerebral infarction without residual deficits; Z86.14 Personal history of Methicillin resistant Staphylococcus aureus infection
CPT/HCPCS: 99285 ×2; 96374 ×2; 96375 ×2; 96361 ×3; 82075; 96360; 36415; 93005; 83880; 80053; 82550; 83605; 83690; 83735; 84484; 85025; 85610; 85730; 80306; 83520; 80143; 71046; 71275; G0480; J2270; J1200; Q9967; 80320; 80329

== ENCOUNTER 2020-10-01 05:40 | Emergency (ER) | payer OTHER ==
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
[2020-10-01] MEDS ORDERED: SODIUM CHLORIDE 0.9% 1,000 ML IV STA (06:00)
[2020-10-01 06:01] VITALS: TEMP 97.9
[2020-10-01 06:36] LABS: Basophils % (A) 1 %; Eosinophils # (A) 0.1 k/uL (0-0.7); Eosinophils % (A) 2 %; HCT 38.6 % (39.0-53.0); HGB 13.4 gm/dL (13.0-17.5); Lymphocytes # (A) 0.7 k/uL (1.0-4.8); Lymphocytes % (A) 22 %; MCH 31.8 pg (25.0-35.0); MCHC 34.6 g/dL (31.0-37.0); MCV 91.9 fL (80.0-100.0); Mean Platelet Volume 6.5; Monocytes # (A) 0.2 k/uL (0-1.0); Monocytes % (A) 7 %; Neutrophils # (A) 2.2 k/uL (1.3-7.7); Neutrophils % (A) 68 %; Platelet Count 241 k/uL (150-450); RDW 13.4 % (11.5-15.5); WBC 3.2 k/uL (3.8-10.6)
[2020-10-01 06:46] LABS: Acetaminophen <10.0 ug/mL; African American GFR (CKD) >90 (>60 ml/min/1.73 sqM); Albumin 3.6 g/dL (3.5-5.0); Anion Gap 13 mmol/L; Calcium 8.3 mg/dL (8.4-10.2); Carbon Dioxide 16 mmol/L (22-30); Chloride 106 mmol/L (98-107); Glucose 121 mg/dL (74-99); Lipase 59 U/L (23-300); Non-African American GFR(CKD) >90 (>60 ml/min/1.73 sqM); Salicylate <1.0 mg/dL; Sodium 135 mmol/L (137-145); Total Bilirubin 0.6 mg/dL (0.2-1.3); Total Protein 6.5 g/dL (6.3-8.2)
[2020-10-01 06:48] LABS: Amphetamine Screen,Urine Not Detected (NotDetected); Barbiturate Screen,Urine Not Detected (NotDetected); Benzodiazepines Screen,Urine Detected (NotDetected); Cocaine Screen,Urine Not Detected (NotDetected); Methadone Screen, Urine Not Detected (NotDetected); Opiate Screen,Urine Detected (NotDetected); Oxycodone Screen, Urine Not Detected (NotDetected); Phencyclidine Screen,Urine Not Detected (NotDetected); Tricyclic Antidepressant,Urine Detected (NotDetected); Urn Cannabinoid Scrn Not Detected (NotDetected)
[2020-10-01 06:51] LABS: ALT 23 U/L (4-49); AST 38 U/L (17-59); Alkaline Phosphatase 48 U/L (38-126); Blood Urea Nitrogen 10 mg/dL (9-20); Potassium 4.5 mmol/L (3.5-5.1)
[2020-10-01 06:53] LABS: Alcohol 83 mg/dL
[2020-10-01] MEDS ORDERED: ACET/COD 300 MG/30 MG STARTER PACK 6 TAB BTL PO STA (09:30)
[2020-10-01 09:43] VITALS: BP 137/82; PULSE 77; RESP 18
== END 2020-10-01 09:38 | disposition home or self-care (01) ==
LOC: EC 05:40
DX: T65.91XA Toxic effect of unspecified substance, accidental (unintentional), initial encounter (principal); G47.00 Insomnia, unspecified; F17.200 Nicotine dependence, unspecified, uncomplicated; Z88.0 Allergy status to penicillin; Z86.14 Personal history of Methicillin resistant Staphylococcus aureus infection; Z86.73 Personal history of transient ischemic attack (TIA), and cerebral infarction without residual deficits
CPT/HCPCS: 82075; 36415; 93005; 80053; 83690; 85025; 80306; 83520; 80143; 99285; 96360; G0480; 80320

== ENCOUNTER 2020-12-02 17:31 | Inpatient (IN) | payer OTHER ==
[2020-12-02] MEDS ORDERED: FAMOTIDINE 20 MG/2 ML VIAL IV STA (18:25)
[2020-12-02] MEDS ORDERED: SODIUM CHLORIDE 0.9% 500 ML 500 ML IV STA (18:25)
[2020-12-02] MEDS ORDERED: SODIUM CHLORIDE 0.9% 1,000 ML IV STA (18:25)
[2020-12-02] MEDS ORDERED: ONDANSETRON 4 MG/2 ML VIAL IVP STA (18:25)
[2020-12-02] MEDS ORDERED: LORazepam 2 MG/ML INJ IV STA ×2 (18:25→19:46)
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
[2020-12-02 18:38] LABS: Basophils % (A) 0 %; Eosinophils # (A) 0.1 k/uL (0-0.7); Eosinophils % (A) 2 %; HCT 45.5 % (39.0-53.0); HGB 15.9 gm/dL (13.0-17.5); Lymphocytes # (A) 0.5 k/uL (1.0-4.8); Lymphocytes % (A) 8 %; MCH 32.1 pg (25.0-35.0); MCV 91.6 fL (80.0-100.0); Mean Platelet Volume 10.1; Monocytes # (A) 0.4 k/uL (0-1.0); Monocytes % (A) 5 %; Neutrophils # (A) 5.6 k/uL (1.3-7.7); Neutrophils % (A) 84 %; RBC 4.96 m/uL (4.30-5.90); RDW 14.3 % (11.5-15.5); WBC 6.6 k/uL (3.8-10.6)
[2020-12-02 18:44] LABS: Prothrombin Time 10.3 sec (9.0-12.0)
[2020-12-02 18:48] LABS: ALT 51 U/L (4-49); AST 83 U/L (17-59); African American GFR (CKD) >90 (>60 ml/min/1.73 sqM); Albumin 4.6 g/dL (3.5-5.0); Alkaline Phosphatase 79 U/L (38-126); Anion Gap 17 mmol/L; Blood Urea Nitrogen 14 mg/dL (9-20); Calcium 8.7 mg/dL (8.4-10.2); Carbon Dioxide 21 mmol/L (22-30); Chloride 93 mmol/L (98-107); Glucose 103 mg/dL (74-99); Magnesium 1.6 mg/dL (1.6-2.3); Non-African American GFR(CKD) >90 (>60 ml/min/1.73 sqM); Phosphorus 3.3 mg/dL (2.5-4.5); Sodium 131 mmol/L (137-145); Total Bilirubin 2.2 mg/dL (0.2-1.3); Total Protein 7.6 g/dL (6.3-8.2)
[2020-12-02 19:00] LABS: Potassium 5.1 mmol/L (3.5-5.1)
[2020-12-02 19:02] LABS: Alcohol 122 mg/dL
[2020-12-02 19:07] LABS: Amphetamine Screen,Urine Not Detected (NotDetected); Barbiturate Screen,Urine Not Detected (NotDetected); Benzodiazepines Screen,Urine Not Detected (NotDetected); Cocaine Screen,Urine Not Detected (NotDetected); Methadone Screen, Urine Not Detected (NotDetected); Opiate Screen,Urine Not Detected (NotDetected); Oxycodone Screen, Urine Not Detected (NotDetected); Phencyclidine Screen,Urine Not Detected (NotDetected); Tricyclic Antidepressant,Urine Not Detected (NotDetected); Urn Cannabinoid Scrn Not Detected (NotDetected)
[2020-12-02 19:09] LABS: Platelet Count 75 k/uL (150-450)
[2020-12-02] MEDS ORDERED: LORazepam 2 MG/ML INJ IV PRN ×2 (19:47)
[2020-12-02] MEDS ORDERED: THIAMINE 100 MG/ML 2 ML VIAL IM STA (19:47)
[2020-12-02] MEDS ORDERED: NALOXONE 0.4 MG/ML 1 ML VIAL IV PRN (19:48)
[2020-12-02] MEDS ORDERED: ONDANSETRON 4 MG/2 ML VIAL IVP PRN (19:48)
[2020-12-02] MEDS: SODIUM CHLORIDE 0.9% 1,000 ML IV SCH (21:25)
[2020-12-02] MEDS: MULTIVITAMINS, THERA 1 EACH TAB PO SCH (23:13)
[2020-12-02] MEDS: LORazepam 2 MG/ML INJ IV PRN (23:19)
[2020-12-03] MEDS: SODIUM CHLORIDE 0.9% 1,000 ML IV SCH ×3 (06:10→21:08)
[2020-12-03] MEDS: MULTIVITAMINS, THERA 1 EACH TAB PO SCH (08:33)
[2020-12-03] MEDS: THIAMINE 100 MG TAB PO SCH ×2 (08:33→17:06)
[2020-12-03] MEDS: LORazepam 2 MG/ML INJ IV PRN (08:56)
[2020-12-03] MEDS ORDERED: PANTOPRAZOLE 40 MG/10 ML VIAL IV SCH (09:00)
--- NOTE | 2020-12-03 11:49 | XR ---
EXAMINATION TYPE: XR chest 1V portable DATE OF EXAM: 12/03/2020 COMPARISON: Chest x-ray 10/01/[address] 10/01/2020, CT 07/17/2020, 06/26/2020 HISTORY: Shortness of breath, hiccups TECHNIQUE: frontal view of the chest is obtained 2 images. FINDINGS: Aortic aneurysm is present. No evident pneumothorax or pleural effusion. Prominence of the heart shadow likely due to epicardial fat pads. No evident airspace disease, pneumothorax, or pleura l effusion. IMPRESSION: Essentially stable exam. Thoracic aortic aneurysm.
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
[2020-12-03] MEDS: chlordiazePOXIDE 25 MG CAP PO SCH ×2 (15:22→21:00)
[2020-12-03] MEDS: NICOTINE 14MG/24HR PATCH TRANSDERM SCH (17:07)
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
[2020-12-03] MEDS ORDERED: MIRTAZAPINE 15 MG TAB PO SCH (21:00)
[2020-12-03] MEDS: APIXABAN 5 MG TAB PO SCH (21:00)
[2020-12-04] MEDS: SODIUM CHLORIDE 0.9% 1,000 ML IV SCH ×2 (06:05→08:14)
[2020-12-04] MEDS ORDERED: PANTOPRAZOLE 40 MG TABLET PO SCH (07:30)
[2020-12-04] MEDS: chlordiazePOXIDE 25 MG CAP PO SCH ×2 (08:13→20:35)
[2020-12-04] MEDS: FUROSEMIDE 20 MG TAB PO SCH (08:13)
[2020-12-04] MEDS: ARIPiprazole 5 MG TAB PO SCH (08:13)
[2020-12-04] MEDS: MULTIVITAMINS, THERA 1 EACH TAB PO SCH (08:13)
[2020-12-04] MEDS: THIAMINE 100 MG TAB PO SCH ×2 (08:13→16:42)
[2020-12-04] MEDS: APIXABAN 5 MG TAB PO SCH ×2 (08:13→20:35)
[2020-12-04] MEDS: NICOTINE 14MG/24HR PATCH TRANSDERM SCH (08:14)
[2020-12-04] MEDS: LORazepam 2 MG/ML INJ IV PRN ×2 (08:23→21:53)
[2020-12-04 11:29] LABS: African American GFR (CKD) 113.3 (60.0-200.0); Albumin 3.2 g/dL (3.80-4.90); Albumin/Globulin Ratio 1.68 (1.60-3.17); Anion Gap 9.1 mmol/L (4.00-12.00); BUN/Creat Ratio 17.5 Ratio (12.00-20.00); Calcium 8.6 mg/dL (8.7-10.3); Carbon Dioxide 24.9 mmol/L (21.6-31.8); Globulin 1.9 g/dL (1.6-3.3); Magnesium 1.5 mg/dL (1.5-2.4); Non-African American GFR(CKD) 97.8 (60.0-200.0); Potassium 3.7 mmol/L (3.5-5.5); Total Bilirubin 1.5 mg/dL (0.2-1.2); Total Protein 5.1 g/dL (6.2-8.2)
[2020-12-04] MEDS ORDERED: chlorproMAZINE 25 MG TAB PO STA (11:39)
--- NOTE | 2020-12-04 11:47 | P.PN ---
Progress Note - Text Progress Note Date: 12/04/20 Interval History: Patient was seen resting in bed and was directable and agreeable to speak with the screen writer. The patient reports that he is feeling better. He states that he is continuing to experience withdrawal symptoms in the form of a headache area and he states that overall he is feeling better and has not expressed any visual hallucinations over the past 24 hours. His chief complaint at this time is intractable hiccups. He otherwise reports that sleep was improved from the night before. He denies any issues with appetite. He reports no suicidal or homicidal ideation, intention, and/or plan. He denies any auditory or visualizations. He denies any paranoia or other delusions. He has been adherent with his medications and is not reporting any significant side effects at this time. Mental Status Exam: General Appearance: Patient appears to be stated age is alert, pleasant, and cooperative. Patient appears to have fair hygiene and grooming wearing hospital gown with fair eye contact. Patient has a reina and short cut hair. Behavior: Patient is calmly lying in bed without any agitated behavior. Eye contact is appropriate. Patient appears to be belching throughout the interview. Speech: Patient's speech is fluent and nonpressured. Monotone with otherwise normal spontaneity and volume. Mood/Affect: Patient reports their mood is "feeling better", affect is congruent and with appropriate range. Suicidality/Homicidality: Patient denies having any suicidal or homicidal ideation intent or plan. Perceptions: Patient is denying any auditory or visual hallucinations. Though content/process: There is no evidence of any delusional thought content and thought process is linear and goal-directed. Memory and concentration: AOX3, grossly intact for the purposes of this session. Can spell "WORLD" backwards Judgment and insight: poor Assessment Depressive disorder, unspecified Rule out depressive disorder secondary to alcohol use Rule out adjustment disorder with mixed disturbance of mood and conduct Alcohol use disorder PLAN: -At this time patient DOES NOT meet criteria for inpatient psychiatric admission. -Delirium precautions recommended with patient including - avoiding use of narcotics and [employer] sedatives, limit anticholinergic medications when possible, frequent re-orientation, minimize use of restraints, open window shades during the day and close them at night -Would recommend the following medication changes/additions: Decrease Librium 25 mg by mouth 2 times a day for alcohol withdrawal - Last CIWA score of 8 at 0818 - Gradual taper. Vitals stable. Conntinue Abilify 5 mg by mouth daily for mood augmentation Increase Remeron to 15 mg at bedtime for depression/insomnia/appetite stimulation. Start one time dose of thorazine 25 mg for intractable hiccups. -Risks, benefits, and treatment alternatives were discussed with the patient in detail. -Patient does not wish to go to inpatient rehabilitation for alcohol use disorder at this time. -Recommend social work consult to provide patient with outpatient appointments for substance abuse counseling, psychotherapy, and appropriate psychiatric follow-up. The patient is requesting if he is able to go to [facility] for mental health. -Psychiatry will sign off at this point. Psychiatrically cleared. Stable for discharge once medically cleared.
[2020-12-04 12:06] LABS: Basophils # (A) 0.01 X 10*3/uL (0.00-0.10); Basophils % (A) 0.3 %; Eosinophils % (A) 2.8 %; HCT 40.3 % (39.6-50.0); HGB 13.6 g/dL (13.0-17.0); Lymphocytes # (A) 0.89 X 10*3/uL (0.90-5.00); Lymphocytes % (A) 24.7 %; MCH 31.2 pg (27.0-32.0); MCHC 33.7 g/dL (32.0-37.0); MCV 92.4 fL (80.0-97.0); Mean Platelet Volume 12.7 fL (9.5-12.2); Monocytes # (A) 0.37 X 10*3/uL (0.20-1.00); Monocytes % (A) 10.2 %; Neutrophils # (A) 2.22 X 10*3/uL (1.80-7.70); Neutrophils % (A) 61.4 %; Platelet Count 55 X 10*3/uL (140-440); RBC 4.36 X 10*6/uL (4.40-5.60); RDW 14.7 % (11.5-14.5); WBC 3.61 X 10*3/uL (4.50-10.00)
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
[2020-12-04] MEDS: PANTOPRAZOLE 40 MG TABLET PO SCH (16:42)
--- NOTE | 2020-12-04 17:52 | US ---
EXAMINATION TYPE: US liver DATE OF EXAM: 12/04/2020 COMPARISON: NONE CLINICAL HISTORY: elevated LFTs, ETOH abuse. EXAM MEASUREMENTS: Liver Length: 23.2 cm Gallbladder Wall: 0.2 cm CBD: 0.5 cm Right Kidney: 11.7 x 5.3 x 5.5 cm Pancreas: Obscured by bowel gas Liver: Increased attenuation, unable to penetrate severely limiting evaluation, enlarged Gallbladder: small stone without wall thickening Evidence for sonographic Hillman's sign: no CBD: very limited visualization Right Kidney: limited visualization due to overlying bowel IMPRESSION: 1. Cholelithiasis 2. Nonspecific pattern to the liver can be seen with hepatic steatosis or diffuse hepatocellular dise ase correlate clinically.
[2020-12-04 18:35] LABS: Hepatitis A Antibody IgM Non-Reactive (Non-Reactive); Hepatitis B Surface Antigen Non-Reactive (Non-Reactive); Hepatitis C IgG Antibody Non-Reactive (Non-Reactive)
[2020-12-04] MEDS: MIRTAZAPINE 15 MG TAB PO SCH (20:35)
--- NOTE | 2020-12-04 23:44 | P.PN ---
Subjective Progress Note Date: 12/04/20 Principal diagnosis: Alcohol withdrawal Mr. Toribio is a 60-year-old male with a past medical history of DVT, PE, osteoarthritis, CVA/TIA coming into the hospital stating that he is here for alcohol withdrawals. Patient states that he has been drinking one fifth of whiskey for the past 3 weeks every day as he is depressed. He states that he does not have a job and has no money and is depressed so has been drinking. He states that he stopped drinking cold turkey this past Wednesday and has been experiencing tremors along with hallucinations. Patient denies having any suicidal or homicidal ideation. Patient was recently in the ER in September 2020 for overdosing on pain medications. Patient was diagnosed with pulmonary embolism in June 2020. Patient also has history of right lower extremity DVT. Patient states that he has been taking his Eliquis, his last dose was yesterday. Patient denies having any chest pain or palpitations. Patient has been having hicupps now, and states that whenever he has alcohol withdrawal that hicupps bother him. Patient also complains of shortness of breath which is ongoing. No worsening of his shortness of breath. He has significant history of smoking, current every day smoker. He also mentions about swelling of his lower extremities on and off, mentions that his has been there since having the DVT. Patient mentions about issues with concentration since he had a fall and had a subdural hematoma in the past. Patient denies having any abdominal pain nausea vomiting or diarrhea. No dysuria or hematuria. In the ER patient had labs done showing white count of 3.1, hemoglobin 13.4 platelets 102. INR of 0.9, sodium 131, potassium 4.1, chloride 93, bicarb 29, BNP 14, creatinine 0.64. AST 83, revealed a 51 total bilirubin 2.2. Urine drug screen has been negative. Serum alcohol level 122. COVID 19 PCR negative. P atient had a chest x-ray done that was negative for pleural effusion or pneumothorax. Reported thoracic aortic aneurysm. Patient was admitted for alcohol withdrawal with psych consultation. On 12/04/2020 -patient was seen and examined at the bedside. No acute events reported by nursing staff overnight. Patient required 1 dose of Ativan since last night. He continues to be on Librium. Patient states that his hiccups are better compared to yesterday. On review of system patient denies any fevers chills or rigors. No abdominal pain nausea vomiting or diarrhea. No dysuria or hematuria. No cough or difficulty breathing. Patient denies having any bleeding in his stool. On reviewing his vitals temperature of 98.2, heart rate 68, respiratory 18, blood pressure 116/75, saturating at 95% on room air. Patient's a.m. labs still pending. Active Medications Generic Name Dose Route Start Last Admin Trade Name Freq PRN Reason Stop Dose Admin Apixaban 5 mg 12/03/20 21:00 12/04/20 20:35 Apixaban 5 Mg Tab PO 5 mg BID JERO Administration Aripiprazole 5 mg 12/04/20 09:00 12/04/20 08:13 Aripiprazole 5 Mg Tab PO 5 mg DAILY JERO Administration Chlordiazepoxide HCl 25 mg 12/04/20 21:00 12/04/20 20:35 Chlordiazepoxide 25 Mg Cap PO 25 mg BID JERO Administration Furosemide 20 mg 12/04/20 09:00 12/04/20 08:13 Furosemide 20 Mg Tab PO 20 mg DAILY JERO Administration Sodium Chloride 1,000 mls @ 125 mls/hr 12/02/20 20:00 12/04/20 08:14 Saline 0.9% IV 125 mls/hr .Q8H JERO Administration Lorazepam 1 mg 12/02/20 19:47 12/04/20 21:53 Lorazepam 2 Mg/Ml Inj IV 1 mg Q2HR PRN Administration CIWA 8 or 9 Lorazepam 1 mg 12/02/20 19:47 Lorazepam 2 Mg/Ml Inj IV Q1HR PRN CIWA 10 to 15 Mirtazapine 15 mg 12/04/20 21:00 12/04/20 20:35 Mirtazapine 15 Mg Tab PO 15 mg HS JERO Administration Multivitamins 1 each 12/02/20 20:00 12/04/20 08:13 Multivitamins, Thera 1 Each Tab PO 1 each DAILY JERO Administration Naloxone HCl 0.2 mg 12/02/20 19:48 Naloxone 0.4 Mg/Ml 1 Ml Vial IV Q2M PRN Opioid Reversal Nicotine 1 patch 12/03/20 15:45 12/04/20 08:14 Nicotine 14mg/24hr Patch TRANSDERM 1 patch DAILY JERO Administration Ondansetron HCl 4 mg 12/02/20 19:48 Ondansetron 4 Mg/2 Ml Vial IVP Q8HR PRN Nausea And Vomiting Pantoprazole Sodium 40 mg 12/04/20 17:30 12/04/20 16:42 Pantoprazole 40 Mg Tablet PO 40 mg AC-BID JERO Administration Thiamine HCl 100 mg 12/03/20 07:30 12/04/20 16:42 Thiamine 100 Mg Tab PO 100 mg BID-W/MEALS JERO Administration Objective - Vital Signs Vital signs: Vital Signs Temp 98.2 F 12/04/20 05:15 Pulse 68 12/04/20 05:15 Resp 18 12/04/20 05:15 BP 116/75 12/04/20 05:15 Pulse Ox 93 L 12/04/20 05:15 Intake & Output 12/03/20 12/04/20 12/04/20 18:59 06:59 18:59 Output Total 600 Balance -600 Weight 101.5 kg Output: Urine 600 Other: Voiding Method Urinal # Voids 2 2 # Bowel Movements 1 - Exam PHYSICAL EXAMINATION: GENERAL: The patient is alert and oriented x3, not in any acute distress. Hicupps less in intensity compared to yesterday HEENT: Pupils are round and equally reacting to light. EOMI. No scleral icterus. No conjunctival pallor. CARDIOVASCULAR: S1 and S2 present. Tachycardia PULMONARY: Chest is clear to auscultation, no wheezing or crackles. ABDOMEN: Soft, Mild tenderness in the right upper quadrant , nondistended, normoactive bowel sounds. MUSCULOSKELETAL: No joint swelling or deformity. EXTREMITIES: No cyanosis, clubbing. Positive for bilateral pitting edema left more than right. NEUROLOGICAL: Gross neurological examination did not reveal any focal deficits. SKIN: No rashes. - Labs CBC & Chem 7: 12/04/20 06:30 12/04/20 06:30 Labs: Abnormal Lab Results - Last 24 Hours (Table) 12/04/20 Range/Units 06:30 Calcium 8.6 L (8.7-10.3) mg/dL Total Bilirubin 1.5 H (0.2-1.2) mg/dL AST 62 H (14-35) U/L ALT 53 H (10-49) U/L Total Protein 5.1 L (6.2-8.2) g/dL Albumin 3.20 L (3.80-4.90) g/dL Assessment and Plan Assessment: ASSESSMENT Alcohol withdrawal Transaminitis Thrombocytopenia Hypovolemic hyponatremia Hyperbilirubinemia Hypomagnesemia Depression History of unprovoked DVT and PE on anticoagulation with Eliquis Thoracic aortic aneurysm Chronic nicotine dependence PLAN: Patient has been started on Librium, Ativan on board. Continue with DT precautions and CIWA protocol. Will replace magnesium. Psychiatric services on board and following the patient, appreciate the recommendations. Patient's labs were not up this morning, later during the day on reviewing his labs patient's platelets were found to be low at 55. His hemoglobin has been stable at 13.6. No evidence of any active bleeding. Patient's bilirubin trending down, AST ALT trending down. Will consult hematology for thrombocytopenia. Continue with the rest of his current medication regimen. Patient is on Eliquis due to history of DVT and PE. Continue with Protonix for GI prophylaxis. Further recommendations to follow depending on the progress of the patient. Overall prognosis is guarded.
[2020-12-05] MEDS: SODIUM CHLORIDE 0.9% 1,000 ML IV SCH ×3 (01:09→07:06)
[2020-12-05] MEDS: NICOTINE 14MG/24HR PATCH TRANSDERM SCH (07:12)
[2020-12-05] MEDS: ARIPiprazole 5 MG TAB PO SCH (07:12)
[2020-12-05] MEDS: MULTIVITAMINS, THERA 1 EACH TAB PO SCH (07:20)
[2020-12-05] MEDS: FUROSEMIDE 20 MG TAB PO SCH (07:20)
[2020-12-05] MEDS: THIAMINE 100 MG TAB PO SCH ×2 (07:20→17:20)
[2020-12-05] MEDS: chlordiazePOXIDE 25 MG CAP PO SCH ×2 (07:20→20:51)
[2020-12-05] MEDS: PANTOPRAZOLE 40 MG TABLET PO SCH ×2 (07:20→17:20)
[2020-12-05] MEDS: LORazepam 2 MG/ML INJ IV PRN (07:36)
[2020-12-05 07:39] LABS: Hepatitis B Core IgM Non-Reactive (Non-Reactive)
[2020-12-05] MEDS: APIXABAN 5 MG TAB PO SCH ×2 (08:00→20:51)
[2020-12-05 11:51] LABS: African American GFR (CKD) 113.3 (60.0-200.0); Albumin 3.6 g/dL (3.80-4.90); Albumin/Globulin Ratio 1.8 (1.60-3.17); Anion Gap 7.2 mmol/L (4.00-12.00); Basophils # (A) 0.01 X 10*3/uL (0.00-0.10); Basophils % (A) 0.3 %; Calcium 8.7 mg/dL (8.7-10.3); Carbon Dioxide 28.8 mmol/L (21.6-31.8); Eosinophils % (A) 2.8 %; HCT 42.3 % (39.6-50.0); HGB 14.3 g/dL (13.0-17.0); Lymphocytes # (A) 0.87 X 10*3/uL (0.90-5.00); Lymphocytes % (A) 24.5 %; MCH 31.2 pg (27.0-32.0); MCHC 33.8 g/dL (32.0-37.0); MCV 92.2 fL (80.0-97.0); Magnesium 1.5 mg/dL (1.5-2.4); Monocytes % (A) 11.3 %; Neutrophils # (A) 2.16 X 10*3/uL (1.80-7.70); Neutrophils % (A) 60.8 %; Non-African American GFR(CKD) 97.8 (60.0-200.0); Platelet Count 68 X 10*3/uL (140-440); Potassium 3.9 mmol/L (3.5-5.5); RBC 4.59 X 10*6/uL (4.40-5.60); RDW 14.7 % (11.5-14.5); Total Protein 5.6 g/dL (6.2-8.2); WBC 3.55 X 10*3/uL (4.50-10.00)
[2020-12-05] MEDS ORDERED: BACLOFEN 10 MG TAB PO PRN (12:02)
--- NOTE | 2020-12-05 12:38 | P.PN ---
Subjective Progress Note Date: 12/05/20 Principal diagnosis: Elevated LFTs, ETOH abuse Patient is seen and examined lying in bed sleeping. He is easily aroused. He no longer has hiccups this morning. He states he still has some right upper quadrant tenderness. Denies any other abdominal pain, nausea, or vomiting. Liver enzymes are trending down. He is tolerating his diet. Liver ultrasound shows cholelithiasis, nonspecific pattern to the liver can be seen with hepatic steatosis or diffuse hepatocellular disease correlate clinically. Objective - Vital Signs Vital signs: Vital Signs Temp 97.8 F 12/05/20 05:00 Pulse 72 12/05/20 05:00 Resp 16 12/05/20 05:00 BP 134/89 12/05/20 05:00 Pulse Ox 97 12/05/20 05:00 Intake & Output 12/04/20 12/05/20 12/05/20 18:59 06:59 18:59 Output Total 3000 750 Balance -3000 -750 Weight 102 kg Output: Urine 3000 750 Other: Voiding Method Urinal # Voids 3 - Exam General appearance: The patient is alert, oriented, appears in no acute distress. HET: Head is normocephalic and atraumatic. Conjunctiva pink. Sclera anicteric. Neck: Supple without lymphadenopathy. Abdomen: Soft, upper quadrant tenderness, nondistended with bowel sounds. No guarding or rigidity. Extremities: Normal skin color and turgor. No pedal edema Skin: No rashes, no jaundice Neurological: No focal deficits. Alert and oriented 3. - Labs CBC & Chem 7: 12/05/20 06:15 12/05/20 06:15 Labs: Abnormal Lab Results - Last 24 Hours (Table) 12/04/20 Range/Units 06:30 WBC 3.61 L (4.50-10.00) X 10*3/uL RBC 4.36 L (4.40-5.60) X 10*6/uL RDW 14.7 H (11.5-14.5) % Plt Count 55 L (140-440) X 10*3/uL Plt Count Comment DECREASED A MPV 12.7 H (9.5-12.2) fL Lymphocytes # 0.89 L (0.90-5.00) X 10*3/uL Immature Plt Fraction 11.7 H (1.1-6.1) % Assessment and Plan (1) Elevated liver enzymes Narrative/Plan: 60-year-old male presenting for treatment of alcohol withdrawal. He to 10 year history of heavy alcohol use with daily liquor intake of approximately a fifth daily. Denies any prior history of elevated liver enzymes, history of cirrhosis or decompensated liver disease with no ascites, encephalopathy or GI bleeding in the past. Liver enzymes are elevated in both a cholestatic and hepatocellular pattern likely related to alcoholic liver disease with total bilirubin 2.2, alkaline phosphatase 79, AST 83 and ALT 51. No elevation in INR or encephalopathy to suggest liver failure the patient does have a depressed platelet count suggestive of portal hypertension and cirrhosis. Current Visit: Yes Status: Acute Code(s): R74.8 - ABNORMAL LEVELS OF OTHER SERUM ENZYMES SNOMED Code(s): 497383333 (2) Alcohol withdrawal syndrome Current Visit: Yes Status: Acute Code(s): F10.239 - ALCOHOL DEPENDENCE WITH WITHDRAWAL, UNSPECIFIED SNOMED Code(s): 459164920 (3) Alcoholic liver disease Current Visit: Yes Status: Acute Code(s): K70.9 - ALCOHOLIC LIVER DISEASE, UNSPECIFIED SNOMED Code(s): 63091420 Plan: Supportive care Okay for sodium restricted diet as tolerated Continue to monitor CBC, BMP and LFTs Continue to monitor for signs and symptoms of alcohol withdrawal and treat Strict alcohol abstinence discussed with the patient at length Other medical management per primary team The patient will need follow-up with gastroenterology after discharge Thank you for allowing us to participate in the care of the patient, we will continue to follow Dr. Cazares I agree with the dictator's note, documented as a scribe by Sussy Delarosa.
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
--- NOTE | 2020-12-05 15:39 | P.PN ---
Subjective Progress Note Date: 12/05/20 Alcohol withdrawal Mr. Toribio is a 60-year-old male with a past medical history of DVT, PE, osteoarthritis, CVA/TIA coming into the hospital stating that he is here for alcohol withdrawals. Patient states that he has been drinking one fifth of whiskey for the past 3 weeks every day as he is depressed. He states that he does not have a job and has no money and is depressed so has been drinking. He states that he stopped drinking cold turkey this past Wednesday and has been experiencing tremors along with hallucinations. Patient denies having any suicidal or homicidal ideation. Patient was recently in the ER in September 2020 for overdosing on pain medications. Patient was diagnosed with pulmonary embolism in June 2020. Patient also has history of right lower extremity DVT. Patient states that he has been taking his Eliquis, his last dose was yesterday. Patient denies having any chest pain or palpitations. Patient has been having hicupps now, and states that whenever he has alcohol withdrawal that hicupps bother him. Patient also complains of shortness of breath which is ongoing. No worsening of his shortness of breath. He has significant history of smoking, current every day smoker. He also mentions about swelling of his lower extremities on and off, mentions that his has been there since having the DVT. Patient mentions about issues with concentration since he had a fall and had a subdural hematoma in the past. Patient denies having any abdominal pain nausea vomiting or diarrhea. No dysuria or hematuria. In the ER patient had labs done showing white count of 3.1, hemoglobin 13.4 platelets 102. INR of 0.9, sodium 131, potassium 4.1, chloride 93, bicarb 29, BNP 14, creatinine 0.64. AST 83, revealed a 51 total bilirubin 2.2. Urine drug screen has been negative. Serum alcohol level 122. COVID 19 PCR negative. Patient had a chest x-ray done that was negative for pleural effusion or pneumothorax. Reported thoracic aortic aneurysm. Patient was admitted for alcohol withdrawal with psych consultation. On 12/04/2020 -patient was seen and examined at the bedside. No acute events reported by nursing staff overnight. Patient required 1 dose of Ativan since last night. He continues to be on Librium. Patient states that his hiccups are better compared to yesterday. On review of system patient denies any fevers chills or rigors. No abdominal pain nausea vomiting or diarrhea. No dysuria or hematuria. No cough or difficulty breathing. Patient denies having any bleeding in his stool. On reviewing his vitals temperature of 98.2, heart rate 68, respiratory 18, blood pressure 116/75, saturating at 95% on room air. Patient's a.m. labs still pending. 12/05/2020 Patient is seen and evaluated in follow-up continues to be maintained on CIWA protocol and has received a dose today. Patient also started on Librium and was being followed by psychiatry. Cardiology was consulted as patient is on Eliquis for past medical history of DVT and PE and continues to have low platelets. Platelets slightly improved today at 68 and other labs within normal limits. Patient also continues to have hiccups frequently and will give baclofen and monitor closely. Review of systems: Constitutional: No reports of fatigue, fever, or chills, reports anxiety Cardiovascular: No reports of chest pain or palpitations Respiratory: Reports intermittent shortness of breath with exertion GI: No reports of nausea, vomiting, or diarrhea : No reports of dysuria or retention Neurovascular: No reports of weakness or numbness All medications have been reviewed Objective - Vital Signs Vital signs: Vital Signs Temp 97.8 F 12/05/20 12:14 Pulse 71 12/05/20 12:14 Resp 17 12/05/20 12:14 BP 120/81 12/05/20 12:14 Pulse Ox 95 12/05/20 12:14 Intake & Output 12/04/20 12/05/20 12/05/20 18:59 06:59 18:59 Output Total 3000 1000 Balance -3000 -1000 Weight 102 kg Output: Urine 3000 1000 Other: Voiding Method Urinal # Voids 3 - Exam GENERAL: The patient is alert and oriented x3, not in any acute distress. Hicupps less in intensity compared to yesterday HEENT: Pupils are round and equally reacting to light. EOMI. No scleral icterus. No conjunctival pallor. CARDIOVASCULAR: S1 and S2 present. Tachycardia PULMONARY: Chest is clear to auscultation, no wheezing or crackles. ABDOMEN: Soft, nontender on palpation, nondistended, normoactive bowel sounds. MUSCULOSKELETAL: No joint swelling or deformity. EXTREMITIES: No cyanosis, clubbing. Positive for bilateral pitting edema left more than right. NEUROLOGICAL: Gross neurological examination did not reveal any focal deficits. SKIN: No rashes. - Labs CBC & Chem 7: 12/05/20 06:15 12/05/20 06:15 Labs: Abnormal Lab Results - Last 24 Hours (Table) 12/05/20 12/05/20 Range/Units 06:15 06:15 WBC 3.55 L (4.50-10.00) X 10*3/uL RDW 14.7 H (11.5-14.5) % Plt Count 68 L (140-440) X 10*3/uL Plt Count Comment DECREASED A Lymphocytes # 0.87 L (0.90-5.00) X 10*3/uL Immature Plt Fraction 11.6 H (1.1-6.1) % AST 72 H (14-35) U/L ALT 73 H (10-49) U/L Total Protein 5.6 L (6.2-8.2) g/dL Albumin 3.60 L (3.80-4.90) g/dL Assessment and Plan Assessment: Alcohol withdrawal Transaminitis Thrombocytopenia Hypovolemic hyponatremia Hyperbilirubinemia Hypomagnesemia Depression History of unprovoked DVT and PE on anticoagulation with Eliquis Thoracic aortic aneurysm, will need continued outpatient follow-up Chronic nicotine dependence PLAN: Patient has been started on Librium, Ativan on board. Continue with DT precautions and CIWA protocol. Psychiatric services on board and following the patient, appreciate the recommendations. Hematology consulted and following for thrombocytopenia as he is maintained on oral anticoagulant for history of DVT and PE. Platelets are 68 today and will continue to monitor closely. Okay to continue with anticoagulant per hematology. No evidence of any active bleeding. Patient's bilirubin trending down, AST ALT trending down. GI following. Continue with the rest of his current medication regimen. Continue with Protonix for GI prophylaxis. Further recommendations to follow depending on the progress of the patient. Overall prognosis is guarded.
[2020-12-05] MEDS ORDERED: Magnesium Replacement Protocol 1 EACH MISC MISCELLANE PRN (15:40)
[2020-12-05] MEDS: MAGNESIUM SULFATE-D5W PMX 1 GM in DEXTROSE/WATER 1 100ML.BAG IVPB SCH ×2 (17:20→18:20)
[2020-12-05 19:52] VITALS: RESP 18
[2020-12-05] MEDS: MIRTAZAPINE 15 MG TAB PO SCH (20:51)
[2020-12-06 08:55] LABS: Basophils % (A) 1 %; Eosinophils # (A) 0.1 k/uL (0-0.7); Eosinophils % (A) 2 %; HCT 47.1 % (39.0-53.0); HGB 15.3 gm/dL (13.0-17.5); Lymphocytes # (A) 0.8 k/uL (1.0-4.8); Lymphocytes % (A) 17 %; MCH 30.7 pg (25.0-35.0); MCHC 32.6 g/dL (31.0-37.0); MCV 94.1 fL (80.0-100.0); Mean Platelet Volume 8.3; Monocytes # (A) 0.4 k/uL (0-1.0); Monocytes % (A) 9 %; Neutrophils # (A) 3.1 k/uL (1.3-7.7); Neutrophils % (A) 69 %; Platelet Count 108 k/uL (150-450); RBC 5.01 m/uL (4.30-5.90); RDW 14.9 % (11.5-15.5); WBC 4.5 k/uL (3.8-10.6)
[2020-12-06 09:07] LABS: ALT 93 U/L (4-49); AST 81 U/L (17-59); African American GFR (CKD) >90 (>60 ml/min/1.73 sqM); Albumin 3.7 g/dL (3.5-5.0); Albumin/Globulin Ratio 1.3; Alkaline Phosphatase 76 U/L (38-126); Anion Gap 4 mmol/L; Blood Urea Nitrogen 15 mg/dL (9-20); Calcium 9.1 mg/dL (8.4-10.2); Carbon Dioxide 28 mmol/L (22-30); Chloride 101 mmol/L (98-107); Globulin 2.9 g/dL; Glucose 102 mg/dL (74-99); Magnesium 1.9 mg/dL (1.6-2.3); Non-African American GFR(CKD) >90 (>60 ml/min/1.73 sqM); Potassium 4.2 mmol/L (3.5-5.1); Sodium 133 mmol/L (137-145); Total Bilirubin 0.8 mg/dL (0.2-1.3); Total Protein 6.6 g/dL (6.3-8.2)
[2020-12-06] MEDS: NICOTINE 14MG/24HR PATCH TRANSDERM SCH (09:08)
[2020-12-06] MEDS: MULTIVITAMINS, THERA 1 EACH TAB PO SCH (09:09)
[2020-12-06] MEDS: THIAMINE 100 MG TAB PO SCH (09:09)
[2020-12-06] MEDS: APIXABAN 5 MG TAB PO SCH (09:09)
[2020-12-06] MEDS: FUROSEMIDE 20 MG TAB PO SCH (09:09)
[2020-12-06] MEDS: chlordiazePOXIDE 25 MG CAP PO SCH (09:09)
[2020-12-06] MEDS: ARIPiprazole 5 MG TAB PO SCH (09:09)
[2020-12-06] MEDS: PANTOPRAZOLE 40 MG TABLET PO SCH (09:09)
[2020-12-06] MEDS ORDERED: Magnesium Replacement Protocol 1 EACH MISC MISCELLANE PRN (09:51)
[2020-12-06] MEDS: MAGNESIUM SULFATE-D5W PMX 1 GM in DEXTROSE/WATER 1 100ML.BAG IVPB SCH ×2 (10:11→11:45)
[2020-12-06 12:27] VITALS: BP 120/80; PULSE 71; TEMP 97.7
--- NOTE | 2020-12-06 12:53 | P.PN ---
Subjective Progress Note Date: 12/06/20 Principal diagnosis: Elevated LFTs, ETOH abuse Seen and examined. He denies any abdominal pain, nausea, or vomiting. States his hiccups are improving. No acute changes through the night. Objective - Vital Signs Vital signs: Vital Signs Temp 97.7 F 12/06/20 12:26 Pulse 71 12/06/20 12:26 Resp 18 12/06/20 12:26 BP 120/80 12/06/20 12:26 Pulse Ox 95 12/06/20 12:26 Intake & Output 12/05/20 12/06/20 12/06/20 18:59 06:59 18:59 Output Total 1300 Balance -1300 Output: Urine 1300 Other: Voiding Method Urinal # Voids 4 - Exam General appearance: The patient is alert, oriented, appears in no acute distress. HET: Head is normocephalic and atraumatic. Conjunctiva pink. Sclera anicteric. Neck: Supple without lymphadenopathy. Abdomen: Soft, upper quadrant tenderness, nondistended with bowel sounds. No guarding or rigidity. Extremities: Normal skin color and turgor. No pedal edema Skin: No rashes, no jaundice Neurological: No focal deficits. Alert and oriented 3. - Labs CBC & Chem 7: 12/06/20 08:30 12/06/20 08:30 Labs: Abnormal Lab Results - Last 24 Hours (Table) 12/06/20 12/06/20 Range/Units 08:30 08:30 Plt Count 108 L (150-450) k/uL Lymphocytes # 0.8 L (1.0-4.8) k/uL Sodium 133 L (137-145) mmol/L Glucose 102 H (74-99) mg/dL AST 81 H (17-59) U/L ALT 93 H (4-49) U/L Assessment and Plan (1) Elevated liver enzymes Narrative/Plan: 60-year-old male presenting for treatment of alcohol withdrawal. He to 10 year history of heavy alcohol use with daily liquor intake of approximately a fifth daily. Denies any prior history of elevated liver enzymes, history of cirrhosis or decompensated liver disease with no ascites, encephalopathy or GI bleeding in the past. Liver enzymes are elevated in both a cholestatic and hepatocellular pattern likely related to alcoholic liver disease with total bilirubin 2.2, alkaline phosphatase 79, AST 83 and ALT 51. No elevation in INR or encephalopathy to suggest liver failure the patient does have a depressed platelet count suggestive of portal hypertension and cirrhosis. Current Visit: Yes Status: Acute Code(s): R74.8 - ABNORMAL LEVELS OF OTHER SERUM ENZYMES SNOMED Code(s): 151546597 (2) Alcohol withdrawal syndrome Current Visit: Yes Status: Acute Code(s): F10.239 - ALCOHOL DEPENDENCE WITH WITHDRAWAL, UNSPECIFIED SNOMED Code(s): 116894455 (3) Alcoholic liver disease Current Visit: Yes Status: Acute Code(s): K70.9 - ALCOHOLIC LIVER DISEASE, UNSPECIFIED SNOMED Code(s): 38579671 Plan: Supportive care New sodium restricted diet Strict alcohol abstinence discussed with the patient at length Other medical management per primary team The patient will need follow-up with gastroenterology after discharge, this was discussed with the patient he was agreeable Thank you for this consultation, the patient may be discharged home from a gastroenterology standpoint Dr. Cazares I agree with the dictator's note, documented as a scribe by Sussy Delarosa.
[2020-12-06] MEDS ORDERED: SIMETHICONE 80 MG CHEWABLE PO SCH (13:00)
--- NOTE | 2020-12-06 14:58 | P.DS ---
Providers Date of admission: 12/02/20 19:48 Expected date of discharge: 12/06/20 Attending physician: Yee Calix Consults: 12/02/20 19:47 Consult Physician Urgent Consulting Provider: Alirio Jewell Consult Reason/Comments: mental health eval Do you want consulting provider notified?: Yes 12/03/20 15:13 Consult Physician Routine Consulting Provider: Bisi Palumbo Consult Reason/Comments: elevated lfts, low plt count Do you want consulting provider notified?: Yes 12/04/20 23:29 Consult Physician Routine Consulting Provider: Po Danielson Consult Reason/Comments: Thrombocytopenia, H/O DVT and PE on Eliquis Do you want consulting provider notified?: Yes Primary care physician: Per [facility] Hospital Course: final diagnosis Alcohol withdrawal Transaminitis Thrombocytopenia Hypovolemic hyponatremia Hyperbilirubinemia Hypomagnesemia Depression 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 Patient will follow-up with Dr. Albarado in the outpatient setting upon discharge. Patient also instructed to follow-up with GI in the outpatient setting. Patient will be discharged home on Librium taper. Total time taken is greater than 35 minutes. Hospital course Alcohol withdrawal Mr. Toribio is a 60-year-old male with a past medical history of DVT, PE, osteoarthritis, CVA/TIA coming into the hospital stating that he is here for alcohol withdrawals. Patient states that he has been drinking one fifth of whiskey for the past 3 weeks every day as he is depressed. He states that he does not have a job and has no money and is depressed so has been drinking. He states that he stopped drinking cold turkey this past Wednesday and has been experiencing tremors along with hallucinations. Patient denies having any suicidal or homicidal ideation. Patient was recently in the ER in September 2020 for overdosing on pain medications. Patient was diagnosed with pulmonary embolism in June 2020. Patient also has history of right lower extremity DVT . Patient states that he has been taking his Eliquis, his last dose was yesterday. Patient denies having any chest pain or palpitations. Patient has been having hicupps now, and states that whenever he has alcohol withdrawal that hicupps bother him. Patient also complains of shortness of breath which is ongoing. No worsening of his shortness of breath. He has significant history of smoking, current every day smoker. He also mentions about swelling of his lower extremities on and off, mentions that his has been there since having the DVT. Patient mentions about issues with concentration since he had a fall and had a subdural hematoma in the past. Patient denies having any abdominal pain nausea vomiting or diarrhea. No dysuria or hematuria. In the ER patient had labs done showing white count of 3.1, hemoglobin 13.4 platelets 102. INR of 0.9, sodium 131, potassium 4.1, chloride 93, bicarb 29, BNP 14, creatinine 0.64. AST 83, revealed a 51 total bilirubin 2.2. Urine drug screen has been negative. Serum alcohol level 122. COVID 19 PCR negative. Patient had a chest x-ray done that was negative for pleural effusion or pneumothorax. Reported thoracic aortic aneurysm. Patient was admitted for alcohol withdrawal with psych consultation. On 12/04/2020 -patient was seen and examined at the bedside. No acute events reported by nursing staff overnight. Patient required 1 dose of Ativan since last night. He continues to be on Librium. Patient states that his hiccups are better compared to yesterday. On review of system patient denies any fevers chills or rigors. No abdominal pain nausea vomiting or diarrhea. No dysuria or hematuria. No cough or difficulty breathing. Patient denies having any bleeding in his stool. On reviewing his vitals temperature of 98.2, heart rate 68, respiratory 18, blood pressure 116/75, saturating at 95% on room air. Patient's a.m. labs still pending. 12/05/2020 Patient is seen and evaluated in follow-up continues to be maintained on CIWA protocol and has received a dose today. Patient also started on Librium and was being followed by psychiatry. hematology was consulted as patient is on Eliquis for past medical history of DVT and PE and continues to have low platelets. Platelets slightly improved today at 68 and other labs within normal limits. Patient also continues to have hiccups frequently and will give baclofen and monitor closely. 12/06/2020 Patient is seen and evaluated this morning and follow-up with no acute overnight issues. Patient was maintained on CIWA protocol although not requiring any Ativan. patient has also been on a Librium taper and will continue in the outpatient setting. Patient has also been seen and evaluated by GI recommending outpatient follow-up in the next 2 weeks. Patient instructed to avoid all alcohol intake and follow-up in the outpatient setting with counseling services along with primary care provider. Patient to continue anticoagulant and would benefit from hematology follow-up in the outpatient setting. Patient again encouraged and instructed to avoid any alcohol. There was a finding of a thoracic aortic aneurysm per radiology is not a new finding and instructed the patient to follow-up outpatient. Currently no reports of chest pain, shortness of breath, or palpitations. Patient is afebrile. No reports of nausea or vomiting and patient is tolerating diet. Patient will be discharged home today. Guarded prognosis On exam vital signs are stable. Cardio S1, S2 are muffled. Respiratory system shows diminished breath sounds at the bases with no wheezing or rhonchi noted. Abdomen is soft and nontender. Nervous system shows no focal deficits. Please refer to medication reconciliation sheet for a list of medications. Patient Condition at Discharge: Stable Plan - Discharge Summary New Discharge Prescriptions: New ARIPiprazole [Abilify] 5 mg PO DAILY 30 Days #30 tab Multivitamins, Thera [Multivitamin (formulary)] 1 each PO DAILY 30 Days #30 tab Pantoprazole [Protonix] 40 mg PO DAILY 30 Days #30 tablet. Mirtazapine [Remeron] 15 mg PO HS 30 Days #30 tab chlordiazePOXIDE HCl [Librium] 25 mg PO BID #6 cap Thiamine [Vitamin B-1] 100 mg PO BID-W/MEALS 30 Days #60 tab Continue Nicotine 14Mg/24Hr Patch [Habitrol] 1 patch TRANSDERM DAILY #14 patch Apixaban [Eliquis] 5 mg PO BID #60 tab tiZANidine [Zanaflex] 4 mg PO TID PRN PRN Reason: Muscle Spasm QUEtiapine FUMARATE [SEROquel] 25 mg PO HS Furosemide [Lasix] 20 mg PO DAILY Discontinued Diazepam [Valium] 5 mg PO HS PRN PRN Reason: Anxiety Discharge Medication List Nicotine 14Mg/24Hr Patch [Habitrol] 1 patch TRANSDERM DAILY #14 patch 06/04/20 [Rx] Apixaban [Eliquis] 5 mg PO BID #60 tab 07/18/20 [Rx] tiZANidine [Zanaflex] 4 mg PO TID PRN 08/06/20 [History] Furosemide [Lasix] 20 mg PO DAILY 10/01/20 [History] QUEtiapine FUMARATE [SEROquel] 25 mg PO HS 10/01/20 [History] ARIPiprazole [Abilify] 5 mg PO DAILY 30 Days #30 tab 12/06/20 [Rx] Mirtazapine [Remeron] 15 mg PO HS 30 Days #30 tab 12/06/20 [Rx] Multivitamins, Thera [Multivitamin (formulary)] 1 each PO DAILY 30 Days #30 tab 12/06/20 [Rx] Pantoprazole [Protonix] 40 mg PO DAILY 30 Days #30 tablet.dr 12/06/20 [Rx] Thiamine [Vitamin B-1] 100 mg PO BID-W/MEALS 30 Days #60 tab 12/06/20 [Rx] chlordiazePOXIDE HCl [Librium] 25 mg PO BID #6 cap 12/06/20 [Rx] Follow up Appointment(s)/Referral(s): Ghada Albarado MD [Primary Care Provider] - 1-2 days (patient can do a walk in and see pa in a week.) Eugenio Cazares MD [STAFF PHYSICIAN] - 12/24/20 8:45 am Patient Instructions/Handouts: Alcohol Intoxication (DC) Activity/Diet/Wound Care/Special Instructions: Activity Limited until follow-up Follow-up with primary care provider upon discharge Continue with Librium taper with 25 mg twice daily for the next 2 days then 0.5 mg daily for 2 days Do not drink alcohol Avoid all alcohol intake Continue with anticoagulant Eliquis Follow-up with GI outpatient Discharge Disposition: HOME SELF-CARE
--- NOTE | 2020-12-06 15:25 | P.PN ---
Subjective Progress Note Date: 12/06/20 Principal diagnosis: thrombocytopenia platlets improved today, plan to follow up at discharge cbc monitoring Objective - Vital Signs Vital signs: Vital Signs Temp 97.7 F 12/06/20 12:26 Pulse 71 12/06/20 12:26 Resp 18 12/06/20 12:26 BP 120/80 12/06/20 12:26 Pulse Ox 95 12/06/20 12:26 Intake & Output 12/05/20 12/06/20 12/06/20 18:59 06:59 18:59 Output Total 1300 Balance -1300 Output: Urine 1300 Other: Voiding Method Urinal # Voids 4 - Exam - Constitutional General appearance: Present: cooperative, no acute distress - EENT Eyes: Present: EOMI ENT: Present: NA/AT, normal oropharynx - Neck Neck: Present: normal ROM - Respiratory Respiratory: bilateral: CTA - Gastrointestinal General gastrointestinal: Present: soft - Integumentary Integumentary: Present: pale Palpable metastatic lesions under ribcage at site of pain - Neurologic Neurologic: Present: CNII-XII intact - Musculoskeletal Musculoskeletal: Present: generalized weakness, strength equal bilaterally - Psychiatric Psychiatric: Present: A&O x's 3, appropriate affect - Labs CBC & Chem 7: 12/06/20 08:30 12/06/20 08:30 Labs: Abnormal Lab Results - Last 24 Hours (Table) 12/06/20 12/06/20 Range/Units 08:30 08:30 Plt Count 108 L (150-450) k/uL Lymphocytes # 0.8 L (1.0-4.8) k/uL Sodium 133 L (137-145) mmol/L Glucose 102 H (74-99) mg/dL AST 81 H (17-59) U/L ALT 93 H (4-49) U/L Assessment and Plan (1) History of DVT (deep vein thrombosis) Status: Acute Code(s): Z86.718 - PERSONAL HISTORY OF OTHER VENOUS THROMBOSIS AND EMBOLISM SNOMED Code(s): 965335291 (2) History of pulmonary embolus (PE) Status: Acute Code(s): Z86.711 - PERSONAL HISTORY OF PULMONARY EMBOLISM SNOMED Code(s): 618698172 (3) Thrombocytopenia Status: Acute Code(s): D69.6 - THROMBOCYTOPENIA, UNSPECIFIED SNOMED Code(s): 792110606 (4) Thrombocytopenia concurrent with and due to alcoholism Status: Acute Code(s): D69.59 - OTHER SECONDARY THROMBOCYTOPENIA; F10.20 - ALCOHOL DEPENDENCE, UNCOMPLICATED SNOMED Code(s): 32858277491287 (5) Alcoholic liver disease Status: Acute Code(s): K70.9 - ALCOHOLIC LIVER DISEASE, UNSPECIFIED SNOMED Code(s): 23131797 Plan: At this time his platelets are remaining greater than 50K therefore eliquis may continue, this will need to be held if drops below 50K. ETOH per primary and psych Thrombocytopenia: - MOnitor daily - Secondary to ETOH and decompensated liver Plan: - Continue AC therapy as prescribed - ETOH Cessation - CBC and VIsit [employer]IAISON OFFICER in 2 weeks
== END 2020-12-06 14:50 | disposition home or self-care (01) | DRG 897 ==
LOC: EC 17:31 → 5NMEDONC 19:48
PROVIDERS: ADMIT Hospitalist; ATTEND Hospitalist
DX: F10.239 Alcohol dependence with withdrawal, unspecified (principal); E87.1 Hypo-osmolality and hyponatremia; G31.2 Degeneration of nervous system due to alcohol; D69.59 Other secondary thrombocytopenia; S06.5X9S Traumatic subdural hemorrhage with loss of consciousness of unspecified duration, sequela; I71.2 Thoracic aortic aneurysm, without rupture; K70.9 Alcoholic liver disease, unspecified; Z20.822 Contact with and (suspected) exposure to COVID-19; E86.1 Hypovolemia; R27.0 Ataxia, unspecified; E83.42 Hypomagnesemia; F32.9 Major depressive disorder, single episode, unspecified; K80.20 Calculus of gallbladder without cholecystitis without obstruction; K76.0 Fatty (change of) liver, not elsewhere classified; M81.0 Age-related osteoporosis without current pathological fracture; R06.6 Hiccough; Y90.6 Blood alcohol level of 120-199 mg/100 ml; M19.90 Unspecified osteoarthritis, unspecified site; F17.210 Nicotine dependence, cigarettes, uncomplicated; Z71.6 Tobacco abuse counseling; Z79.01 Long term (current) use of anticoagulants; Z79.899 Other long term (current) drug therapy; Z86.718 Personal history of other venous thrombosis and embolism; Z86.73 Personal history of transient ischemic attack (TIA), and cerebral infarction without residual deficits; Z86.711 Personal history of pulmonary embolism; Z86.14 Personal history of Methicillin resistant Staphylococcus aureus infection; Z87.39 Personal history of other diseases of the musculoskeletal system and connective tissue; Z56.0 Unemployment, unspecified; Z91.5 Personal history of self-harm; Z98.890 Other specified postprocedural states; Z88.0 Allergy status to penicillin; Z82.49 Family history of ischemic heart disease and other diseases of the circulatory system; Z80.1 Family history of malignant neoplasm of trachea, bronchus and lung; Z81.2 Family history of tobacco abuse and dependence
CPT/HCPCS: 36415; 71045; 76705; 80053; 80074; 80306; 80320; 83735; 84100; 85025; 85610; 87635; 93005; 96361; 96372; 96374; 96375; 99285

== ENCOUNTER 2021-02-03 09:18 | Emergency (ER) | payer OTHER ==
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
[2021-02-03 10:37] VITALS: BP 125/88; PULSE 86; RESP 18; TEMP 97.8
== END 2021-02-03 10:36 | disposition home or self-care (01) ==
LOC: EC 09:18
DX: F10.129 Alcohol abuse with intoxication, unspecified (principal); L30.9 Dermatitis, unspecified; M19.90 Unspecified osteoarthritis, unspecified site; F17.200 Nicotine dependence, unspecified, uncomplicated; Z86.718 Personal history of other venous thrombosis and embolism; Z86.711 Personal history of pulmonary embolism; Z86.73 Personal history of transient ischemic attack (TIA), and cerebral infarction without residual deficits; Z79.01 Long term (current) use of anticoagulants; Z88.0 Allergy status to penicillin; Y90.9 Presence of alcohol in blood, level not specified
CPT/HCPCS: 99284

== ENCOUNTER 2021-03-24 15:45 | Inpatient (IN) | payer OTHER ==
[2021-03-24] MEDS ORDERED: SODIUM CHLORIDE 0.9% 1,000 ML IV STA (16:02)
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
[2021-03-24 16:12] LABS: Basophils # (A) 0.1 k/uL (0-0.2); Basophils % (A) 1 %; Eosinophils # (A) 0.1 k/uL (0-0.7); Eosinophils % (A) 1 %; HCT 48.1 % (39.0-53.0); HGB 15.9 gm/dL (13.0-17.5); Lymphocytes # (A) 1.6 k/uL (1.0-4.8); Lymphocytes % (A) 26 %; MCH 30.5 pg (25.0-35.0); MCV 92.4 fL (80.0-100.0); Mean Platelet Volume 6.8; Monocytes # (A) 0.2 k/uL (0-1.0); Monocytes % (A) 4 %; Neutrophils # (A) 3.9 k/uL (1.3-7.7); Neutrophils % (A) 66 %; Platelet Count 133 k/uL (150-450); RBC 5.21 m/uL (4.30-5.90); RDW 13.9 % (11.5-15.5); WBC 5.9 k/uL (3.8-10.6)
[2021-03-24 16:24] LABS: Potassium 3.7 mmol/L (3.5-5.1)
[2021-03-24 16:25] LABS: African American GFR (CKD) >90 (>60 ml/min/1.73 sqM); Anion Gap 15 mmol/L; Blood Urea Nitrogen 13 mg/dL (9-20); Calcium 8.7 mg/dL (8.4-10.2); Carbon Dioxide 26 mmol/L (22-30); Chloride 100 mmol/L (98-107); Creatine Kinase 152 U/L (55-170); Glucose 113 mg/dL (74-99); Magnesium 1.7 mg/dL (1.6-2.3); Non-African American GFR(CKD) >90 (>60 ml/min/1.73 sqM); Sodium 141 mmol/L (137-145)
[2021-03-24 16:34] LABS: Alcohol 428 mg/dL
--- NOTE | 2021-03-24 16:58 | CT ---
EXAMINATION TYPE: CT brain colinine wo con DATE OF EXAM: 03/24/2021 COMPARISON: CT brain 08/12/2020 HISTORY: Fall. Pain. CT DLP: mGycm Automated exposure control for dose reduction was used. There is cerebral mild cortical atrophy. There is no mass effect nor midline shift. There is no sign of intracranial hemorrhage. The calvarium is intact. Skull base is intact. There is normal aeration o f the mastoid sinuses. There is mild straightening of the cervical spine. There is disc space narrowing at C5-6 with spur fo rmation. Posterior elements are intact. Facet joints are intact. Prevertebral soft tissues are intact . IMPRESSION: Minimal atrophy. No acute intracranial abnormality. No adverse change. Minor degenerative changes in the cervical spine. No fracture.
--- NOTE | 2021-03-24 17:15 | XR ---
EXAMINATION TYPE: XR chest 1V portable DATE OF EXAM: 03/24/2021 COMPARISON: 12/03/2020 HISTORY: Fall TECHNIQUE: 2 views FINDINGS: There is no heart failure nor confluent pneumonic infiltrate. Costophrenic angles are clear . There are no hilar masses. The bony thorax is intact. IMPRESSION: No active cardiopulmonary disease. No change.
--- NOTE | 2021-03-24 17:16 | XR ---
EXAMINATION TYPE: XR pelvis AP view DATE OF EXAM: 03/24/2021 COMPARISON: NONE HISTORY: Pain TECHNIQUE: Single view FINDINGS: Pelvic ring is intact. Proximal femurs and hip joints are intact. There is no hip dysplasia . Sacroiliac joints are intact. IMPRESSION: Normal pelvis. No fracture.
[2021-03-24] MEDS ORDERED: NALOXONE 0.4 MG/ML 1 ML VIAL IV PRN (17:20)
[2021-03-24] MEDS ORDERED: ACETAMINOPHEN TAB 325 MG TAB PO PRN (17:20)
[2021-03-24] MEDS ORDERED: THIAMINE 100 MG/ML 2 ML VIAL IM STA (17:21)
[2021-03-24] MEDS ORDERED: LORazepam 2 MG/ML INJ IV PRN ×2 (17:21)
[2021-03-24] MEDS ORDERED: CYCLOBENZAPRINE 5 MG TAB PO PRN (18:36)
[2021-03-24] MEDS ORDERED: TEMAZEPAM 15 MG CAP PO PRN (18:38)
--- NOTE | 2021-03-24 19:37 | HP ---
HISTORY AND PHYSICAL DATE OF SERVICE: 03/24/2021. CHIEF COMPLAINT: Fall and alcohol intoxication. HISTORY OF PRESENT ILLNESS: This 60-year-old gentleman with a past history of ADD, ADHD, history of DJD, history of pulmonary embolism, being followed by Dr. Albarado in the outpatient setting, was admitted last week with alcohol intoxication, ataxia and chronic encephalopathy. The patient apparently drinking heavily again and the patient was brought in by the EMS. The neighbors heard a loud thump and patient apparently fell. Patient had bruise on the right side of the scalp and complained of some pain and difficulty with the right shoulder also. Alcohol level was found to be 428. Patient admitted for further evaluation and treatment. The patient is unable to give a coherent history. The patient is alert and conscious at this time. There is no history of fever or rigors. PAST MEDICAL: History EtOH, DVT, pulmonary embolism. MEDICATIONS: Home medications are Xarelto, K-Dur, Remeron, Flexeril, Abilify. FAMILY HISTORY: Per chart, atrial fibrillation. SOCIAL HISTORY: History of alcohol smoking. REVIEW OF SYSTEMS: ENT: No diminished vision or hearing. CARDIOVASCULAR: No angina or palpitations. RESPIRATORY SYSTEM: No cough. GI: No nausea. : No dysuria. NERVOUS SYSTEM: As mentioned. ALLERGY: No asthma or hayfever. MUSCULOSKELETAL: As mentioned. HEMATOLOGY: As mentioned. ENDOCRINE: No history of diabetes. CONSTITUTIONAL: As mentioned earlier. DERMATOLOGY: Negative. PSYCHIATRY: As mentioned earlier. PHYSICAL EXAMINATION: Alert, oriented x2. Pulse 97, blood pressure 120/79, respirations 18, temp is 97.9, pulse ox 94% on room air. HEENT: Conjunctivae normal. Oral mucosa moist. NECK: No jugular venous distention, no lymphadenopathy. CARDIOVASCULAR: S1 and S2. RESPIRATORY: Breath sounds diminished at the bases. Few scattered rhonchi no crackles. ABDOMEN: Soft nontender. NERVOUS SYSTEM: Diffusely weak. LYMPHATICS: Negative. JOINTS: No active deforming arthropathy. SKIN: Multiple bruises present as mentioned earlier on the right side of the scalp. LABS: WBC 5.9, sodium is 140, potassium 3.7, platelets are 133, glucose 113. Serum alcohol 428. ASSESSMENT: 1. Acute alcohol intoxication. 2. Change in mental status secondary to acute metabolic encephalopathy secondary to alcohol intoxication. 3. History of fall. 4. Thrombocytopenia. 5. Elevated random glucose. 6. History of pulmonary embolism. 7. History of DVT. 8. History of degenerative joint disease. 9. History of alcohol withdrawal symptoms. 10.History of chronic encephalopathy from alcohol. 11.History of electrolyte imbalance. 12.History of alcoholic hepatitis. 13.History of brain bleed and chronic headaches. 14.History of MRSA. 15.History of nicotine dependence. 16.Full code. RECOMMENDATIONS: In this 60-year-old gentleman who presented with multiple complex medical issues, we will monitor the patient closely. The patient had a CT scan done in the ER itself which showed minimal atrophy. No acute abnormalities were noted. The chest x-ray reviewed personally did not show any acute abnormality. The pelvic x-ray also was normal. I would recommend continue the current medications. Continue with CIWA protocol. Repeat labs. Supplement vitamins. Social service consultation to arrange for alcohol rehab. Prognosis guarded because of multiple complex medical problems. Further recommendations to follow. See orders for details. We will also initiate Xarelto at this time. MMODL / IJN: [id number] /
[2021-03-24] MEDS: SODIUM CHLORIDE 0.9% 1,000 ML IV SCH (20:30)
--- NOTE | 2021-03-24 20:34 | XR ---
EXAMINATION TYPE: XR shoulder complete RT DATE OF EXAM: 03/24/2021 COMPARISON: NONE HISTORY: Shoulder pain TECHNIQUE: 3 views FINDINGS: I see no fracture nor dislocation. Joint spaces are normal. There are no pathologic calcifi cations. IMPRESSION: Negative right shoulder exam. No fracture.
[2021-03-24] MEDS: ARIPiprazole 5 MG TAB PO SCH (21:03)
[2021-03-24] MEDS: MIRTAZAPINE 15 MG TAB PO SCH (21:03)
[2021-03-24] MEDS: HYDROcodone/APAP 5-325MG 1 EACH TAB PO PRN (21:08)
[2021-03-24] MEDS: NICOTINE 14MG/24HR PATCH TRANSDERM SCH (21:23)
[2021-03-25] MEDS: SODIUM CHLORIDE 0.9% 1,000 ML IV SCH ×3 (02:57→19:23)
[2021-03-25] MEDS: LORazepam 2 MG/ML INJ IV PRN ×3 (07:51→18:18)
[2021-03-25] MEDS: THIAMINE 100 MG TAB PO SCH ×2 (07:54→18:19)
[2021-03-25] MEDS: POTASSIUM CHLORIDE ER 10 MEQ TAB.ER.PRT PO SCH (07:54)
[2021-03-25] MEDS: PANTOPRAZOLE 40 MG TABLET PO SCH (07:54)
[2021-03-25] MEDS: NICOTINE 14MG/24HR PATCH TRANSDERM SCH (07:55)
[2021-03-25 09:08] LABS: Basophils # (A) 0.02 X 10*3/uL (0.00-0.10); Basophils % (A) 0.4 %; Eosinophils # (A) 0.04 X 10*3/uL (0.04-0.35); Eosinophils % (A) 0.8 %; HCT 40.1 % (39.6-50.0); HGB 13.6 g/dL (13.0-17.0); Lymphocytes # (A) 1.36 X 10*3/uL (0.90-5.00); Lymphocytes % (A) 26.9 %; MCH 31.3 pg (27.0-32.0); MCHC 33.9 g/dL (32.0-37.0); MCV 92.2 fL (80.0-97.0); Mean Platelet Volume 10.1 fL (9.5-12.2); Monocytes # (A) 0.46 X 10*3/uL (0.20-1.00); Monocytes % (A) 9.1 %; Neutrophils # (A) 3.15 X 10*3/uL (1.80-7.70); Neutrophils % (A) 62.4 %; Platelet Count 116 X 10*3/uL (140-440); RBC 4.35 X 10*6/uL (4.40-5.60); RDW 13.5 % (11.5-14.5); WBC 5.05 X 10*3/uL (4.50-10.00)
[2021-03-25] MEDS: RIVAROXABAN 20 MG TAB PO SCH (09:36)
[2021-03-25 09:44] LABS: African American GFR (CKD) 127.6 (60.0-200.0); Anion Gap 13.9 mmol/L (4.00-12.00); BUN/Creat Ratio 23.33 Ratio (12.00-20.00); Calcium 8.2 mg/dL (8.7-10.3); Carbon Dioxide 23.1 mmol/L (21.6-31.8); Non-African American GFR(CKD) 110.1 (60.0-200.0); Potassium 3.9 mmol/L (3.5-5.5)
[2021-03-25] MEDS: FOLIC ACID 1 MG TAB PO SCH (13:02)
[2021-03-25] MEDS: MULTIVITAMINS, THERA 1 EACH TAB PO SCH (13:02)
--- NOTE | 2021-03-25 18:01 | PN ---
PROGRESS NOTE DATE OF SERVICE: 03/25/2021 INTERVAL HISTORY: This 60-year-old gentleman with alcoholic intoxication, also had acute delirium tremens. The patient has shaking, tremors. The patient is on CIWA protocol. The CIWA score was up to 12 last night, currently at 6. No chest pain. No palpitations. No fever. PHYSICAL EXAMINATION: Alert and oriented x3. Pulse blood pressure 120/74, respirations 17, temperature 98.4, pulse ox 98 percent per 92% room air. HEENT: Normal. NECK: No JVD CARDIOVASCULAR: S1, S2 muffled. RESPIRATION: Breath sounds diminished at the bases. ABDOMEN: Soft, nontender. NERVOUS SYSTEM: Minimal tremors, otherwise no focal deficits. LABS: Platelets are 116. Sodium 139, potassium 3.9 and calcium is 8.2. Alcohol level is 428. ASSESSMENT: 1. Acute alcohol intoxication. 2. Change in mental status secondary to acute metabolic acidosis secondary to acute alcohol intoxication. 3. Acute delirium tremens, on CIWA protocol. 4. History of fall. 5. Thrombocytopenia. 6. Elevated random glucose. 7. History of pulmonary embolism, history of deep vein thrombosis. 8. History of degenerative joint disease. 9. History of alcohol withdrawal symptoms. 10.History of chronic encephalopathy from alcohol. 11.History of electrolyte imbalance. 12.History of alcoholic hepatitis. 13.History of brain bleed and chronic headaches. 14.History of MRSA. 15.History of nicotine dependence. 16.FULL CODE. RECOMMENDATIONS AND DISCUSSION: I recommend to continue current medications, symptomatic treatment. Otherwise at this time continue the CIWA protocol. I would recommend UA with micro also and otherwise continue to monitor. Further recommendations to follow. MMODL / IJN: [id number] /
[2021-03-25] MEDS: ARIPiprazole 5 MG TAB PO SCH (21:30)
[2021-03-25] MEDS: MIRTAZAPINE 15 MG TAB PO SCH (21:30)
[2021-03-25 22:54] LABS: Appearance,Urine Clear (Clear); Bilirubin,Urine Negative (Negative); Blood,Urine Negative (Negative); Color,Urine Yellow; Glucose,Urine (UA) Negative (Negative); Ketones,Urine 2+ (Negative); Leukocyte Esterase,Urine Negative (Negative); Nitrite,Urine Negative (Negative); PH, Urine 6.5 (5.0-8.0); Protein,Urine Negative (Negative); Specific Gravity,Urine 1.026 (1.001-1.035)
[2021-03-26 02:00] VITALS: RESP 18
[2021-03-26] MEDS: SODIUM CHLORIDE 0.9% 1,000 ML IV SCH (02:59)
[2021-03-26] MEDS: HYDROcodone/APAP 5-325MG 1 EACH TAB PO PRN (06:17)
[2021-03-26] MEDS: PANTOPRAZOLE 40 MG TABLET PO SCH (08:31)
[2021-03-26] MEDS: THIAMINE 100 MG TAB PO SCH (08:31)
[2021-03-26] MEDS: NICOTINE 14MG/24HR PATCH TRANSDERM SCH (08:31)
[2021-03-26] MEDS: POTASSIUM CHLORIDE ER 10 MEQ TAB.ER.PRT PO SCH (08:31)
[2021-03-26] MEDS: RIVAROXABAN 20 MG TAB PO SCH (08:32)
[2021-03-26] MEDS ORDERED: LORazepam 1 MG TAB PO PRN (11:09)
[2021-03-26] MEDS: MULTIVITAMINS, THERA 1 EACH TAB PO SCH (12:44)
[2021-03-26] MEDS: FOLIC ACID 1 MG TAB PO SCH (12:44)
[2021-03-26] MEDS ORDERED: LOPERAMIDE 2 MG CAP PO PRN (13:07)
--- NOTE | 2021-03-26 13:07 | P.PN ---
Subjective Progress Note Date: 03/26/21 This is a 60-year-old male who was recently admitted with acute alcohol intoxication also having acute delirium tremens and is being closely monitored. Patient continues to have tremors and shaking noted on exam. Urology is maintained on CIWA protocol and will add oral Ativan and discussed with nursing staff. Also instructed the patient increase activity and encouraged oral diet. Patient is having periods of nausea and denies any vomiting. Patient also states that he felt like he was seeing things in his peripheral vision that weren't there and hearing things in the middle of the night. Patient is alert and oriented 3. Review of systems: Constitutional: No reports of fatigue, fever, or chills Cardiovascular: No reports of chest pain or palpitations Respiratory: No reports of shortness of breath or cough GI: Reports continued intermittent nausea, no reports of vomiting, reports continued diarrhea : No reports of dysuria or retention Neurovascular: No reports of weakness or numbness All medications have been reviewed Objective - Vital Signs Vital signs: Vital Signs Temp 98.6 F 03/26/21 06:47 Pulse 58 L 03/26/21 06:47 Resp 18 03/26/21 06:47 BP 135/86 03/26/21 06:47 Pulse Ox 97 03/26/21 06:47 Intake & Output 03/25/21 03/26/21 03/26/21 18:59 06:59 18:59 Intake Total 118 240 Balance 118 240 Intake: Oral 118 240 Other: Voiding Method Toilet Toilet # Voids 1 5 - Exam Gen: This is a 60-year-old male sitting up at the side of the bed awake, alert and oriented 3, well-developed, well-nourished, disheveled, unkempt. Temp is 98.6F, pulse is 58, respirations are 18, blood pressure is 135/86, oxygen saturation is 97% on room air. HEENT: Head is atraumatic, normocephalic. Pupils equal, round. Sclerae is anicteric. NECK: Supple. No JVD. No lymphadenopathy. No thyromegaly. LUNGS: Diminished breath sounds bilaterally with some scattered rhonchi noted. No intercostal retractions. HEART: S1, S2 are muffled ABDOMEN: Soft. Bowel sounds are present. No masses. No tenderness. EXTREMITIES: No pedal edema. No calf tenderness. NEUROLOGICAL: Patient is awake, alert and oriented x3. Tremors noted on exam with a shuffled gait - Labs CBC & Chem 7: 03/25/21 04:51 03/25/21 04:51 Labs: Abnormal Lab Results - Last 24 Hours (Table) 03/25/21 Range/Units Unknown Urine Ketones 2+ H (Negative) Assessment and Plan Assessment: Acute alcohol intoxication Change in mental status secondary to acute metabolic acidosis secondary to acute alcohol intoxication Acute delirium tremens on CIWA protocol History of falls Thrombocytopenia Elevated random glucose History of pulmonary embolism, history of deep vein thrombosis History of degenerative joint disease History of alcohol withdrawal symptoms History of chronic encephalopathy from alcohol History of the left leg balance History of alcoholic hepatitis History of brain bleed and chronic headaches history of MRSA history of nicotine dependence Full code Recommendations and discussion: Recommend to continue with current medications and symptomatic treatment. Continue CIWA protocol and have added oral Ativan 3 times a day when necessary and instructed nursing about continued Ativan use. Urinalysis was negative. Patient denies any difficulty or dysuria with urination. Patient continues to have loose stools which he states happens often when withdrawing. Will order C. diff to rule out an use Imodium as needed. Instructed and encouraged the patient to continue with oral intake and use anti-emetics as needed and increase activity as tolerated. Patient is up and walking and continues to be slightly unsteady with tremors noted on exam. Due to Multiple complex medical issues, prognosis is guarded. Possible discharge in 24 hours.
--- NOTE | 2021-03-26 14:12 | P.DS ---
Providers Date of admission: 03/26/21 08:49 Expected date of discharge: 03/26/21 Attending physician: Yee Calix Primary care physician: Per Urrutia Hospital Course: Final diagnosis Acute alcohol intoxication Change in mental status secondary to acute metabolic acidosis secondary to acute alcohol intoxication Acute delirium tremens on CIWA protocol History of falls Thrombocytopenia Elevated random glucose History of pulmonary embolism, history of deep vein thrombosis History of degenerative joint disease History of alcohol withdrawal symptoms History of chronic encephalopathy from alcohol History of the left leg balance History of alcoholic hepatitis History of brain bleed and chronic headaches history of MRSA history of nicotine dependence Full code Discharge disposition Patient is being discharged in a stable condition with guarded prognosis to home. Patient will follow-up with Dr. Albarado in the outpatient setting upon discharge. Total time taken is greater than 35 minutes. Hospital course This is a 60-year-old male who was admitted for acute alcohol intoxication also found to have acute delirium tremens and was being closely monitored. Patient was continued on CIWA protocol and slowly improving. Transitioned to oral Ativan. Patient also discussed and educated extensively about refraining from alcohol intake along with continuing to attempt to quit smoking. Also instructed the patient to follow-up outpatient with primary care provider Dr. Albarado upon discharge and also outpatient within the community for AA meetings. Currently no reports of chest pain, shortness of breath, or palpitations. Patie nt is afebrile. No reports of nausea or vomiting and patient is tolerating diet. Patient has a safe discharge and a place to stay and is requesting an adamant about being discharged today. Patient will be discharged to home. Guarded prognosis. On exam vital signs are stable. Cardio S1, S2 are muffled. Respiratory system shows diminished breath sounds at the bases with no wheezing or rhonchi noted. Abdomen is soft and nontender. Nervous system shows no focal deficits. Please refer to medication reconciliation sheet for a list of medications. Patient Condition at Discharge: Fair Plan - Discharge Summary Discharge Rx Participant: No New Discharge Prescriptions: New Thiamine [Vitamin B-1] 100 mg PO BID-W/MEALS #30 tab LORazepam [Ativan] 1 mg PO BID PRN #6 tab PRN Reason: Anxiety Folic Acid 1 mg PO DAILY@1200 #30 tab Multivitamins, Thera [Multivitamin (formulary)] 1 each PO DAILY@1200 #30 tab Acetaminophen Tab [Tylenol] 650 mg PO Q6HR PRN tab PRN Reason: Mild Pain Or Fever > 100.5 Continue Mirtazapine [Remeron] 15 mg PO HS 30 Days #30 tab Rivaroxaban [Xarelto] 20 mg PO DAILY Potassium Chloride ER [K-Dur 10] 10 meq PO DAILY Cyclobenzaprine [Flexeril] 5 - 10 mg PO TID PRN PRN Reason: Pain ARIPiprazole [Abilify] 5 mg PO HS Discharge Medication List Mirtazapine [Remeron] 15 mg PO HS 30 Days #30 tab 12/06/20 [Rx] ARIPiprazole [Abilify] 5 mg PO HS 03/24/21 [History] Cyclobenzaprine [Flexeril] 5 - 10 mg PO TID PRN 03/24/21 [History] Potassium Chloride ER [K-Dur 10] 10 meq PO DAILY 03/24/21 [History] Rivaroxaban [Xarelto] 20 mg PO DAILY 03/24/21 [History] Acetaminophen Tab [Tylenol] 650 mg PO Q6HR PRN tab 03/26/21 [Rx] Folic Acid 1 mg PO DAILY@1200 #30 tab 03/26/21 [Rx] LORazepam [Ativan] 1 mg PO BID PRN #6 tab 03/26/21 [Rx] Multivitamins, Thera [Multivitamin (formulary)] 1 each PO DAILY@1200 #30 tab 03/26/21 [Rx] Thiamine [Vitamin B-1] 100 mg PO BID-W/MEALS #30 tab 03/26/21 [Rx] Follow up Appointment(s)/Referral(s): Ghada Albarado MD [Primary Care Provider] - 1-2 days Activity/Diet/Wound Care/Special Instructions: Activity Limited until follow-up follow up with primary care provider upon discharge Use Ativan as needed for acute alcohol withdrawal Avoid alcohol intake Continue current diet Discharge Disposition: HOME SELF-CARE
[2021-03-26 14:36] VITALS: BP 129/90; PULSE 85; TEMP 97.5
== END 2021-03-26 15:14 | disposition home or self-care (01) | DRG 897 ==
LOC: EC 15:45 → 6NMEDSUR 17:20 → OBSVTOIN 03-26 08:49
PROVIDERS: ADMIT Hospitalist; ATTEND Hospitalist
DX: F10.229 Alcohol dependence with intoxication, unspecified (principal); E87.2 Acidosis; E87.1 Hypo-osmolality and hyponatremia; G31.2 Degeneration of nervous system due to alcohol; F10.231 Alcohol dependence with withdrawal delirium; M25.511 Pain in right shoulder; D69.6 Thrombocytopenia, unspecified; S09.90XA Unspecified injury of head, initial encounter; E83.42 Hypomagnesemia; F17.210 Nicotine dependence, cigarettes, uncomplicated; R27.0 Ataxia, unspecified; Y90.8 Blood alcohol level of 240 mg/100 ml or more; M19.90 Unspecified osteoarthritis, unspecified site; F90.9 Attention-deficit hyperactivity disorder, unspecified type; Z88.0 Allergy status to penicillin; Z79.01 Long term (current) use of anticoagulants; Z86.711 Personal history of pulmonary embolism; Z86.73 Personal history of transient ischemic attack (TIA), and cerebral infarction without residual deficits; Z86.718 Personal history of other venous thrombosis and embolism; Z86.14 Personal history of Methicillin resistant Staphylococcus aureus infection; Z91.81 History of falling; X58.XXXA Exposure to other specified factors, initial encounter
CPT/HCPCS: 36415; 70450; 71045; 72125; 72170; 80048; 80320; 81003; 82550; 83735; 85025; 93005; 96360; 99285

== ENCOUNTER 2021-05-21 04:36 | Inpatient (IN) | payer OTHER ==
[2021-05-21] MEDS ORDERED: THIAMINE 100 MG/ML 2 ML VIAL IM STA (05:03)
[2021-05-21] MEDS ORDERED: LORazepam 2 MG/ML INJ IV PRN (05:03)
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
[2021-05-21] MEDS: LORazepam 2 MG/ML INJ IV PRN ×5 (05:16→20:13)
[2021-05-21 05:50] LABS: Basophils % (A) 0 %; Eosinophils % (A) 0 %; HCT 41.3 % (39.0-53.0); HGB 14.3 gm/dL (13.0-17.5); Lymphocytes # (A) 0.6 k/uL (1.0-4.8); Lymphocytes % (A) 24 %; MCH 33.2 pg (25.0-35.0); MCHC 34.6 g/dL (31.0-37.0); Mean Platelet Volume 7.7; Monocytes # (A) 0.2 k/uL (0-1.0); Monocytes % (A) 8 %; Neutrophils # (A) 1.5 k/uL (1.3-7.7); Neutrophils % (A) 65 %; Platelet Count 119 k/uL (150-450); WBC 2.4 k/uL (3.8-10.6)
[2021-05-21 05:53] LABS: ALT 27 U/L (4-49); AST 44 U/L (17-59); African American GFR (CKD) >90 (>60 ml/min/1.73 sqM); Alkaline Phosphatase 86 U/L (38-126); Anion Gap 14 mmol/L; Blood Urea Nitrogen 10 mg/dL (9-20); Calcium 8.4 mg/dL (8.4-10.2); Carbon Dioxide 21 mmol/L (22-30); Chloride 99 mmol/L (98-107); Glucose 110 mg/dL (74-99); Magnesium 1.6 mg/dL (1.6-2.3); Non-African American GFR(CKD) >90 (>60 ml/min/1.73 sqM); Sodium 134 mmol/L (137-145); Total Bilirubin 0.6 mg/dL (0.2-1.3); Total Protein 6.7 g/dL (6.3-8.2)
[2021-05-21 06:04] LABS: Alcohol 200 mg/dL
[2021-05-21] MEDS ORDERED: MAG HYDROX/AL HYDROX/SIMETH 30 ML CUP PO PRN (06:33)
[2021-05-21] MEDS ORDERED: NALOXONE 0.4 MG/ML 1 ML VIAL IV PRN (06:33)
[2021-05-21] MEDS: SODIUM CHLORIDE 0.9% 1,000 ML IV SCH ×2 (07:56→21:36)
[2021-05-21] MEDS ORDERED: IOPAMIDOL CONTRAST (ORAL USE) VIAL PO PRN (09:03)
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
[2021-05-21] MEDS ORDERED: SODIUM CHLORIDE 0.9% 1,000 ML IV SCH (09:15)
[2021-05-21] MEDS: FUROSEMIDE 20 MG TAB PO SCH (10:13)
[2021-05-21] MEDS: FAMOTIDINE 20 MG TAB PO SCH ×2 (10:13→21:24)
[2021-05-21] MEDS: NICOTINE 14MG/24HR PATCH TRANSDERM SCH (10:13)
[2021-05-21] MEDS: RIVAROXABAN 20 MG TAB PO SCH (10:13)
[2021-05-21] MEDS: POTASSIUM CHLORIDE ER 10 MEQ TAB.ER.PRT PO SCH (10:16)
[2021-05-21] MEDS: SYMBICORT 160-4.5 MCG INHALER INHALATION SCH ×2 (12:58→21:05)
--- NOTE | 2021-05-21 13:20 | CT ---
EXAMINATION TYPE: CT abdomen pelvis w con DATE OF EXAM: 05/21/2021 COMPARISON: 06/26/2020 INDICATION: RLQ pain DLP: 1681.6 mGycm, Automated exposure control for dose reduction was used. CONTRAST: 100 mL of Isovue 300. Study performed with Oral Contrast TECHNIQUE: Axial images were obtained from above the diaphragm to the pubic rami in the axial plane a t 5 mm thick sections. Reconstructed images are reviewed on the computer in the coronal plane. FINDINGS: Limited CT sections are obtained the lung bases. The lung bases are clear. CT ABDOMEN: Liver: There is moderate fatty infiltration of liver. No discrete masses are evident. Spleen: Normal Pancreas: Normal Adrenal glands: The adrenal glands are normal. Gallbladder: Cholelithiasis Kidneys: No masses are evident. No hydronephrosis is present. No cysts are present. Delayed images were obtained through the kidneys, which remain unremarkable. Aorta: Vascular calcification is within the aorta. Inferior vena cava: Normal. CT PELVIS: Loops of bowel within the abdomen and pelvis are normal. There are loops of bowel which are incom pletely distended or lack oral contrast limiting their evaluation. Appendix: Normal as visualized. Urinary bladder: Normal. Genitourinary structures: Prostate contains calcification Osseous structures: No suspicious lytic or sclerotic lesions. IMPRESSIONS: 1. Cholelithiasis. 2. Moderate fatty infiltration liver. 3. Normal appendix
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
--- NOTE | 2021-05-21 17:04 | ECHOF ---
Referral Reason:chest pain MEASUREMENTS -------- HEIGHT: 160.0 cm WEIGHT: 104.3 kg BP: IVSd: 1.5 cm (0.6 - 1.1) LVIDd: 3.7 cm (3.9 - 5.3) LVPWd: 1.7 cm (0.6 - 1.1) IVSs: 1.9 cm LVIDs: 2.6 cm LVPWs: 2.6 cm Ao Diam: 3.8 cm (2.0 - 3.7) AV Cusp: 2.6 cm (1.5 - 2.6) LA Diam: 3.5 cm (2.7 - 3.8) MV EXCURSION: 21.518 mm (> 18.000) MV EF SLOPE: 112 mm/s (70 - 150) EPSS: 0.6 cm MV E George: 0.69 m/s MV DecT: 175 ms MV A George: 0.72 m/s MV E/A Ratio: 0.95 AR PHT: 538 ms RAP: 5.00 mmHg RVSP: 13.89 mmHg FINDINGS -------- This was a technically adequate study. The left ventricular size is normal. There is moderate concentric left ventricular hypertrophy. O verall left ventricular systolic function is normal with, an EF between 55 - 60 %. The right ventricle is normal in size. The left atrial size is normal. The right atrial size is normal. The aortic valve is trileaflet and appears structurally normal. Trace amount of aortic regurgitatio n. The mitral valve is normal. There is trace mitral regurgitation. The tricuspid valve appears structurally normal. Trace tricuspid regurgitation present. Right leisa tricular systolic pressure is normal at < 35 mmHg. There is no pulmonic regurgitation present. The aortic root size is normal. Normal inferior vena cava with normal inspiratory collapse consistent with estimated right atrial pre ssure of 5 mmHg. There is no pericardial effusion. CONCLUSIONS -------- 1. The left ventricular size is normal. 2. There is moderate concentric left ventricular hypertrophy. 3. Overall left ventricular systolic function is normal with, an EF between 55 - 60 %. 4. Trace amount of aortic regurgitation. 5. There is trace mitral regurgitation. 6. Trace tricuspid regurgitation present. 7. There is no pericardial effusion. NEGATIVE TURNER: Fely Zavala RDCS
[2021-05-21] MEDS: THIAMINE 100 MG TAB PO SCH (21:25)
[2021-05-22] MEDS: LORazepam 2 MG/ML INJ IV PRN ×2 (03:05→11:06)
[2021-05-22] MEDS: ONDANSETRON 4 MG/2 ML VIAL IVP PRN (05:34)
[2021-05-22 05:58] LABS: Basophils % (A) 0 %; Eosinophils % (A) 1 %; HCT 41.8 % (39.0-53.0); HGB 14.5 gm/dL (13.0-17.5); Lymphocytes # (A) 0.6 k/uL (1.0-4.8); Lymphocytes % (A) 14 %; MCH 33.4 pg (25.0-35.0); MCHC 34.7 g/dL (31.0-37.0); MCV 96.3 fL (80.0-100.0); Monocytes # (A) 0.3 k/uL (0-1.0); Monocytes % (A) 8 %; Neutrophils # (A) 3.4 k/uL (1.3-7.7); Neutrophils % (A) 76 %; Platelet Count 100 k/uL (150-450); RBC 4.34 m/uL (4.30-5.90); RDW 13.7 % (11.5-15.5); WBC 4.4 k/uL (3.8-10.6)
[2021-05-22] MEDS: THIAMINE 100 MG TAB PO SCH ×2 (07:14→17:46)
[2021-05-22] MEDS: FAMOTIDINE 20 MG TAB PO SCH ×2 (08:26→20:02)
[2021-05-22] MEDS: POTASSIUM CHLORIDE ER 10 MEQ TAB.ER.PRT PO SCH (08:27)
[2021-05-22] MEDS: NICOTINE 14MG/24HR PATCH TRANSDERM SCH (08:27)
[2021-05-22] MEDS: FUROSEMIDE 20 MG TAB PO SCH (08:27)
[2021-05-22] MEDS: RIVAROXABAN 20 MG TAB PO SCH (08:27)
[2021-05-22] MEDS: SYMBICORT 160-4.5 MCG INHALER INHALATION SCH ×2 (09:13→19:27)
[2021-05-22 09:46] LABS: African American GFR (CKD) 119.7 (60.0-200.0); Albumin 4.1 g/dL (3.80-4.90); Albumin/Globulin Ratio 1.86 (1.60-3.17); BUN/Creat Ratio 12.86 Ratio (12.00-20.00); Bilirubin, Conjugated 0.6 mg/dL (0.20-0.40); Bilirubin,Unconjugated 1.3 mg/dL; Calcium 8.8 mg/dL (8.7-10.3); Globulin 2.2 g/dL (1.6-3.3); Magnesium 1.4 mg/dL (1.5-2.4); Non-African American GFR(CKD) 103.3 (60.0-200.0); Potassium 3.9 mmol/L (3.5-5.5); Total Bilirubin 1.9 mg/dL (0.3-1.2); Total Protein 6.3 g/dL (6.2-8.2)
[2021-05-22] MEDS: SODIUM CHLORIDE 0.9% 1,000 ML IV SCH ×2 (11:04→21:00)
[2021-05-22] MEDS: MAGNESIUM SULFATE-D5W PMX 1 GM in DEXTROSE/WATER 1 100ML.BAG IVPB SCH ×2 (11:04→12:08)
--- NOTE | 2021-05-22 11:55 | P.PN ---
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 We have been asked to see the patient in consultation for chest pain. Patient examined at the bedside. Patient has a history of alcohol abuse. He presented to the hospital secondary to "shaking" and he suspected he was going to start going through alcohol withdrawal. The patient developed chest pain earlier this morning. The pain was on the left side of the chest and felt like an aching sensation. He denies radiation of the pain. Denies shortness of breath. He is a current smoker as well and smokes approximately 1/2 pack per day. EKG reveals sinus mechanism with no signs of acute ischemia Laboratory data: WBC 2.4. Hemoglobin 14.3. Platelet count 119. Sodium 134. Potassium 4.0. BUN 10. Creatinine 0.61. Magnesium 1.6. Current home cardiac medications include Xarelto 20 mg daily and Lasix 20 mg daily Most recent echocardiogram obtained in June 2020 reveals ejection fraction 55-60%. Trace to mild aortic regurgitation. Mild mitral regurgitation. Mild tricuspid regurgitation. 05/22/2021 Patient examined this morning the bedside. Patient denies chest pain or pressure. He denies shortness of breath. Echocardiogram completed revealed ejection fraction 55-60%. Trace mitral regurgitation. Trace tricuspid regur gitation. Patient's vital signs are stable. PHYSICAL EXAM: VITAL SIGNS: Reviewed. GENERAL: Well-developed in no acute distress. HEENT: Head is normocephalic. Pupils are equal, round. Sclerae anicteric. Mucous membranes of the mouth are moist. Neck supple. No JVD or thyromegaly LUNGS: Respirations even and unlabored. Lungs essentially clear to auscultation bilaterally. HEART: Regular rate and rhythm. S1 and S2 heard. ABDOMEN: Soft. Nondistended. Nontender. EXTREMITIES: Normal range of motion. No clubbing or cyanosis. Peripheral pulses intact. No lower extremity edema NEUROLOGIC: Awake and alert. Oriented x 3. ASSESSMENT: Chest pain, atypical Acute alcohol intoxication Alcohol abuse Nicotine dependence History of PE/DVT, on Xarelto PLAN: Abstinence from alcohol recommended Smoking cessation encouraged Patient is stable from a cardiac standpoint. We will sign off. Please reconsult if needed. Nurse practitioner note has been reviewed by physician. Signing provider agrees with the documented findings, assessment, and plan of care. Objective - Vital Signs Vital signs: Vital Signs Temp 98.4 F 05/22/21 08:44 Pulse 77 05/22/21 08:44 Resp 12 05/22/21 08:44 BP 131/82 05/22/21 08:44 Pulse Ox 96 05/22/21 08:44 Intake & Output 05/21/21 05/22/21 05/22/21 18:59 06:59 18:59 Intake Total 590 Output Total 250 Balance 590 -250 Weight 104.326 kg Intake: Oral 590 Output: Urine 250 Other: Voiding Method Toilet Toilet # Voids 3 # Emeses 0 - Labs CBC & Chem 7: 05/22/21 05:22 05/22/21 05:22 Labs: Abnormal Lab Results - Last 24 Hours (Table) 05/22/21 05/22/21 Range/Units 05:22 05:22 Plt Count 100 L (150-450) k/uL Lymphocytes # 0.6 L (1.0-4.8) k/uL Sodium 134 L (135-145) mmol/L Magnesium 1.4 L (1.5-2.4) mg/dL Total Bilirubin 1.9 H (0.3-1.2) mg/dL Conjugated Bilirubin 0.60 H (0.20-0.40) mg/dL AST 38 H (14-35) U/L
[2021-05-22] MEDS: IBUPROFEN 400 MG TAB PO PRN (20:01)
--- NOTE | 2021-05-22 20:11 | P.PN ---
Subjective This is a pleasant 60 years old male with past medical history of right leg DVT, pulmonary embolism, intracranial hemorrhage with CVA/TIA, chronic e ncephalopathy, HE DRINKS 1-2/5 OF LIQUOR EVERY DAY. He is Dr. 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 He follows up with a neurologist for chronic neck pain and back pain Patient states that his last drink was yesterday afternoon, after that he started to have left sided chest pain, in the anterior chest, nonradiating, about 8/10 in severity, felt like aching associated with some breathing difficulty. He states he usually have this chest pain when he quit drinking however he is heavy smoker about half pack per day. Also to quit and he agrees . Also patient has bilateral leg swelling. Patient looks anxious with tremor secondary to his alcohol withdrawal Patient also complains from pain, first to me its and the tip of his penis however later on he told me its on the right lower quadrant abdomen associated with tenderness, no rebound tenderness. Genital area examination of his looked normal with no tenderness. He had last bowel movement yesterday which was normal. He denies nausea vomiting. He drinks about 2/5 of liquor every day, he denies illicit drugs. The breast but not suicidal. Xarelto for his history of DVT and PE 2 He had an echocardiogram last year showing ejection fraction of 55-60%. 05/22/2021 Patient awake alert, he has no chest pain today. No abdominal pain. 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 No nausea vomiting and tolerates diet but he has some diarrhea. We will check C. diff although the suspicion is low. Hemodynamically stable, his oxygen saturation is 94% on room air. WBC is back to normal at 4.4, bilirubin today went up slightly at 1.9, his CIWA score is 9-12. Other than that he continued on Xarelto, ibuprofen admitted. IV fluids were stopped and we going to treat him for alcohol withdrawal and once stabilized he can be discharged. Objective - Vital Signs Vital signs: Vital Signs Temp 98.4 F 05/22/21 08:44 Pulse 77 05/22/21 08:44 Resp 12 05/22/21 08:44 BP 131/82 05/22/21 08:44 Pulse Ox 96 05/22/21 08:44 Intake & Output 05/21/21 05/22/21 05/22/21 18:59 06:59 18:59 Intake Total 590 240 Output Total 550 Balance 590 -310 Weight 104.326 kg Intake: Oral 590 240 Output: Urine 550 Other: Voiding Method Toilet Toilet # Voids 3 # Emeses 0 - Exam GENERAL: The patient is alert and oriented x3, not in any acute distress. Well developed, well nourished. HEENT: Pupils are round and equally reacting to light. EOMI. No scleral icterus. No conjunctival pallor. Normocephalic, atraumatic. No pharyngeal erythema. No thyromegaly. CARDIOVASCULAR: S1 and S2 present. No murmurs, rubs, or gallops. PULMONARY: Chest is clear to auscultation, no wheezing or crackles. ABDOMEN: Soft, nontender, nondistended, normoactive bowel sounds. No palpable organomegaly. MUSCULOSKELETAL: No joint swelling or deformity. EXTREMITIES: No cyanosis, clubbing, or pedal edema. NEUROLOGICAL: Gross neurological examination did not reveal any focal deficits. SKIN: No rashes. no petechiae. - Labs CBC & Chem 7: 05/22/21 05:22 05/22/21 05:22 Labs: Abnormal Lab Results - Last 24 Hours (Table) 05/22/21 05/22/21 Range/Units 05:22 05:22 Plt Count 100 L (150-450) k/uL Lymphocytes # 0.6 L (1.0-4.8) k/uL Sodium 134 L (135-145) mmol/L Magnesium 1.4 L (1.5-2.4) mg/dL Total Bilirubin 1.9 H (0.3-1.2) mg/dL Conjugated Bilirubin 0.60 H (0.20-0.40) mg/dL AST 38 H (14-35) U/L Assessment and Plan Assessment: alcohol withdrawal Alcohol abuse Nicotine dependence Chest pain, rule out cardiac causes resolved and cleared by air tool operator Abdominal pain and tenderness, resolved History of DVT thrombosis and pulmonary embolism embolism History of CVS with intracranial hemorrhage Plan: this is a pleasant 60 years old male who presents with alcohol withdrawal With CIWA protocol. Thiamine Scaleman cleared the patient. Abdominal pain resolved. Labs and medication were reviewed.. Continue same treatment. Continue with symptomatic treatment. Resume home medication. Monitor lytes and vitals. DVT and GI prophylaxis. Further recommendations depends on the clinical course of the patient DVT prophylaxis: xarelto GI Prophylaxis: Pepcid Prognosis is guarded
[2021-05-22] MEDS ORDERED: MAGNESIUM SULFATE-D5W PMX 1 GM in DEXTROSE/WATER 1 100ML.BAG IVPB ONE (20:15)
[2021-05-23] MEDS: SYMBICORT 160-4.5 MCG INHALER INHALATION SCH ×2 (07:27→20:17)
[2021-05-23] MEDS: NICOTINE 14MG/24HR PATCH TRANSDERM SCH (09:54)
[2021-05-23] MEDS: FAMOTIDINE 20 MG TAB PO SCH ×2 (09:55→20:48)
[2021-05-23] MEDS: THIAMINE 100 MG TAB PO SCH ×2 (09:56→17:01)
[2021-05-23] MEDS: FUROSEMIDE 20 MG TAB PO SCH (09:56)
[2021-05-23] MEDS: POTASSIUM CHLORIDE ER 10 MEQ TAB.ER.PRT PO SCH (09:57)
[2021-05-23] MEDS: RIVAROXABAN 20 MG TAB PO SCH (09:57)
[2021-05-23] MEDS: LORazepam 2 MG/ML INJ IV PRN ×2 (10:25→17:01)
[2021-05-23] MEDS: IBUPROFEN 400 MG TAB PO PRN (13:37)
[2021-05-23] MEDS: LOPERAMIDE 2 MG CAP PO PRN (13:37)
[2021-05-23 13:48] LABS: African American GFR (CKD) >90 (>60 ml/min/1.73 sqM); Anion Gap 6 mmol/L; Blood Urea Nitrogen 8 mg/dL (9-20); Calcium 9.2 mg/dL (8.4-10.2); Carbon Dioxide 25 mmol/L (22-30); Chloride 102 mmol/L (98-107); Glucose 99 mg/dL (74-99); Magnesium 1.8 mg/dL (1.6-2.3); Non-African American GFR(CKD) >90 (>60 ml/min/1.73 sqM); Potassium 4.3 mmol/L (3.5-5.1); Sodium 133 mmol/L (137-145)
[2021-05-23] MEDS: SODIUM CHLORIDE 0.9% 1,000 ML IV SCH (17:01)
--- NOTE | 2021-05-23 21:36 | P.PN ---
Subjective This is a pleasant 60 years old male with past medical history of right leg DVT, pulmonary embolism, intracranial hemorrhage with CVA/TIA, chronic e ncephalopathy, HE DRINKS 1-2/5 OF LIQUOR EVERY DAY. He is Dr. 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 He follows up with a neurologist for chronic neck pain and back pain Patient states that his last drink was yesterday afternoon, after that he started to have left sided chest pain, in the anterior chest, nonradiating, about 8/10 in severity, felt like aching associated with some breathing difficulty. He states he usually have this chest pain when he quit drinking however he is heavy smoker about half pack per day. Also to quit and he agrees . Also patient has bilateral leg swelling. Patient looks anxious with tremor secondary to his alcohol withdrawal Patient also complains from pain, first to me its and the tip of his penis however later on he told me its on the right lower quadrant abdomen associated with tenderness, no rebound tenderness. Genital area examination of his looked normal with no tenderness. He had last bowel movement yesterday which was normal. He denies nausea vomiting. He drinks about 2/5 of liquor every day, he denies illicit drugs. The breast but not suicidal. Xarelto for his history of DVT and PE 2 He had an echocardiogram last year showing ejection fraction of 55-60%. 05/22/2021 Patient awake alert, he has no chest pain today. 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 No nausea vomiting and tolerates diet but he has some diarrhea. We will check C. diff although the suspicion is low. Hemodynamically stable, his oxygen saturation is 94% on room air. WBC is back to normal at 4.4, bilirubin today went up slightly at 1.9, his CIWA score is 9-12. Other than that he continued on Xarelto, ibuprofen admitted. IV fluids were stopped and we going to treat him for alcohol withdrawal and once stabilized he can be discharged. 05/23/2021 Patient with no chest pain or abdominal pain and only having diarrhea but C. diff is negative and he is on Imodium which is a started today as needed. He looks his stable but is still have significant alcohol withdrawal with CIWA score of 9-15. Hemodynamically and vitals are stable. Labs are stable. Continue with CIWA protocol Objective - Vital Signs Vital signs: Vital Signs Temp 98.5 F 05/23/21 12:00 Pulse 61 05/23/21 12:00 Resp 16 05/23/21 12:00 BP 158/92 05/23/21 12:00 Pulse Ox 98 05/23/21 12:00 Intake & Output 05/22/21 05/23/21 05/23/21 18:59 06:59 18:59 Intake Total 240 1960 Output Total 850 1000 860 Balance -610 960 -860 Intake: Intake, IV Titration 1000 Amount Magnesium Sulfate-D5w Pmx 100 1 gm In Dextrose/Water 1 100ml.bag @ 100 mls/hr IVPB ONCE ONE Rx#: [id number] Sodium Chloride 0.9% 1, 900 000 ml @ 75 mls/hr IV . [id number] [facility] Rx#:[id number] Oral 240 960 Output: Urine 850 1000 860 Other: Voiding Method Toilet Toilet Urinal Urinal # Voids 3 2 - Exam GENERAL: The patient is alert and oriented x3, not in any acute distress. Well developed, well nourished. HEENT: Pupils are round and equally reacting to light. EOMI. No scleral icterus. No conjunctival pallor. Normocephalic, atraumatic. No pharyngeal erythema. No thyromegaly. CARDIOVASCULAR: S1 and S2 present. No murmurs, rubs, or gallops. PULMONARY: Chest is clear to auscultation, no wheezing or crackles. ABDOMEN: Soft, nontender, nondistended, normoactive bowel sounds. No palpable organomegaly. MUSCULOSKELETAL: No joint swelling or deformity. EXTREMITIES: No cyanosis, clubbing, or pedal edema. NEUROLOGICAL: Gross neurological examination did not reveal any focal deficits. SKIN: No rashes. no petechiae. - Labs CBC & Chem 7: 05/22/21 05:22 05/23/21 11:57 Assessment and Plan Assessment: alcohol withdrawal Alcohol abuse Nicotine dependence Chest pain, rule out cardiac causes resolved and cleared by film technician Abdominal pain and tenderness, resolved History of DVT thrombosis and pulmonary embolism embolism History of CVS with intracranial hemorrhage Plan: this is a pleasant 60 years old male who presents with alcohol withdrawal With CIWA protocol. Thiamine Disabilities Caregiver cleared the patient. Abdominal pain resolved. Labs and medication were reviewed.. Continue same treatment. Continue with symptomatic treatment. Resume home medication. Monitor lytes and vitals. DVT and GI prophylaxis. Further recommendations depends on the clinical course of the patient DVT prophylaxis: xarelto GI Prophylaxis: Pepcid Prognosis is guarded
[2021-05-24] MEDS: SODIUM CHLORIDE 0.9% 1,000 ML IV SCH ×2 (05:31→17:15)
[2021-05-24] MEDS: SYMBICORT 160-4.5 MCG INHALER INHALATION SCH ×2 (07:14→19:02)
[2021-05-24] MEDS: NICOTINE 14MG/24HR PATCH TRANSDERM SCH (09:20)
[2021-05-24] MEDS: FUROSEMIDE 20 MG TAB PO SCH (09:21)
[2021-05-24] MEDS: THIAMINE 100 MG TAB PO SCH ×2 (09:21→17:09)
[2021-05-24] MEDS: FAMOTIDINE 20 MG TAB PO SCH ×2 (09:21→22:33)
[2021-05-24] MEDS: POTASSIUM CHLORIDE ER 10 MEQ TAB.ER.PRT PO SCH (09:21)
[2021-05-24] MEDS: RIVAROXABAN 20 MG TAB PO SCH (09:21)
[2021-05-24] MEDS: LORazepam 2 MG/ML INJ IV PRN ×2 (09:28→17:10)
[2021-05-24] MEDS: ONDANSETRON 4 MG/2 ML VIAL IVP PRN (09:29)
[2021-05-24] MEDS: IBUPROFEN 400 MG TAB PO PRN (09:29)
[2021-05-24 10:37] LABS: African American GFR (CKD) 127.6 (60.0-200.0); Albumin 3.9 g/dL (3.80-4.90); Albumin/Globulin Ratio 1.86 (1.60-3.17); Anion Gap 8.1 mmol/L (4.00-12.00); BUN/Creat Ratio 13.33 Ratio (12.00-20.00); Bilirubin, Conjugated 0.5 mg/dL (0.20-0.40); Bilirubin,Unconjugated 0.9 mg/dL; Calcium 8.4 mg/dL (8.7-10.3); Carbon Dioxide 23.9 mmol/L (21.6-31.8); Globulin 2.1 g/dL (1.6-3.3); Magnesium 1.6 mg/dL (1.5-2.4); Non-African American GFR(CKD) 110.1 (60.0-200.0); Potassium 3.8 mmol/L (3.5-5.5); Total Bilirubin 1.4 mg/dL (0.3-1.2)
--- NOTE | 2021-05-24 12:41 | P.PN ---
Subjective This is a pleasant 60 years old male with past medical history of right leg DVT, pulmonary embolism, intracranial hemorrhage with CVA/TIA, chronic e ncephalopathy, HE DRINKS 1-2/5 OF LIQUOR EVERY DAY. He is Dr. Quintnailla. He follows up with a neurologist for chronic neck pain and back pain Patient states that his last drink was yesterday afternoon, after that he started to have left sided chest pain, in the anterior chest, nonradiating, about 8/10 in severity, felt like aching associated with some breathing difficulty. He states he usually have this chest pain when he quit drinking however he is heavy smoker about half pack per day. Also to quit and he agrees . Also patient has bilateral leg swelling. Patient looks anxious with tremor secondary to his alcohol withdrawal Patient also complains from pain, first to me its and the tip of his penis however later on he told me its on the right lower quadrant abdomen associated with tenderness, no rebound tenderness. Genital area examination of his looked normal with no tenderness. He had last bowel movement yesterday which was normal. He denies nausea vomiting. He drinks about 2/5 of liquor every day, he denies illicit drugs. The breast but not suicidal. Xarelto for his history of DVT and PE 2 He had an echocardiogram last year showing ejection fraction of 55-60%. 05/22/2021 Patient awake alert, he has no chest pain today. 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 No nausea vomiting and tolerates diet but he has some diarrhea. We will check C. diff although the suspicion is low. Hemodynamically stable, his oxygen saturation is 94% on room air. WBC is back to normal at 4.4, bilirubin today went up slightly at 1.9, his CIWA score is 9-12. Other than that he continued on Xarelto, ibuprofen admitted. IV fluids were stopped and we going to treat him for alcohol withdrawal and once stabilized he can be discharged. 05/23/2021 Patient with no chest pain or abdominal pain and only having diarrhea but C. diff is negative and he is on Imodium which is a started today as needed. He looks his stable but is still have significant alcohol withdrawal with CIWA score of 9-15. Hemodynamically and vitals are stable. Labs are stable. Continue with CIWA protocol 05/24/2021 He looks alert and awake and less shaky today however his CIWA score is still elevated at 9-14. He remains on CIWA protocol with Ativan. Valium 5 mg at bedtime is admitted today. No abdominal pain or nausea vomiting but he was started on Imodium for his diarrhea, this morning states that last area was yesterday evening. We will keep monitoring currently Vitals are stable. He remains on Xarelto, normal saline at 75 mL/h Today he was complaining of from left shoulder pain with no movements restriction, he says that he felt few weeks ago and hurt his right shoulder but yesterday his left shoulder start hurting as well. He wants to do x-ray for his shoulder which is ordered and pending Objective - Vital Signs Vital signs: Vital Signs Temp 98.4 F 05/24/21 11:52 Pulse 72 05/24/21 11:52 Resp 20 05/24/21 11:52 BP 134/87 05/24/21 11:52 Pulse Ox 98 05/24/21 11:52 Intake & Output 05/23/21 05/24/21 05/24/21 18:59 06:59 18:59 Intake Total 550 Output Total 860 Balance -860 550 Intake: Oral 550 Output: Urine 860 Other: # Voids 2 3 - Exam GENERAL: The patient is alert and oriented x3, not in any acute distress. Well developed, well nourished. HEENT: Pupils are round and equally reacting to light. EOMI. No scleral icterus. No conjunctival pallor. Normocephalic, atraumatic. No pharyngeal erythema. No thyromegaly. CARDIOVASCULAR: S1 and S2 present. No murmurs, rubs, or gallops. PULMONARY: Chest is clear to auscultation, no wheezing or crackles. ABDOMEN: Soft, nontender, nondistended, normoactive bowel sounds. No palpable organomegaly. MUSCULOSKELETAL: No joint swelling or deformity. EXTREMITIES: No cyanosis, clubbing, or pedal edema. NEUROLOGICAL: Gross neurological examination did not reveal any focal deficits. SKIN: No rashes. no petechiae. - Labs CBC & Chem 7: 05/22/21 05:22 05/24/21 05:02 Labs: Abnormal Lab Results - Last 24 Hours (Table) 05/23/21 05/24/21 Range/Units 11:57 05:02 Sodium 133 L (137-145) mmol/L BUN 8 L 8.0 L (9-20) mg/dL Creatinine 0.61 L (0.66-1.25) mg/dL Glucose 113 H (70-110) mg/dL Total Bilirubin 1.4 H (0.3-1.2) mg/dL Conjugated Bilirubin 0.50 H (0.20-0.40) mg/dL AST 83 H (14-35) U/L ALT 90 H (10-49) U/L Total Protein 6.0 L (6.2-8.2) g/dL Assessment and Plan Assessment: alcohol withdrawal Alcohol abuse Nicotine dependence Left shoulder pain Gastroenteritis, mild most likely secondary to alcohol effect. Responding to symptomatic treatment. No need for antibiotics as patient is afebrile with no leukocytosis or other symptoms to suggest infection. Chest pain, rule out cardiac causes resolved and cleared by commodity analyst Abdominal pain and tenderness, resolved History of DVT thrombosis and pulmonary embolism embolism History of CVS with intracranial hemorrhage Plan: this is a pleasant 60 years old male who presents with alcohol withdrawal With CIWA protocol. Thiamine Renewals Representative cleared the patient. Abdominal pain resolved. Labs and medication were reviewed.. Continue same treatment. Continue with symptomatic treatment. Resume home medication. Monitor lytes and vitals. DVT and GI prophylaxis. Further recommendations depends on the clinical course of the patient DVT prophylaxis: xarelto GI Prophylaxis: Pepcid Prognosis is guarded
--- NOTE | 2021-05-24 13:23 | XR ---
EXAMINATION TYPE: XR shoulder limited LT DATE OF EXAM: 05/24/2021 CLINICAL HISTORY: Pain for over a week. TECHNIQUE: Single view left shoulder is obtained. COMPARISON: None. FINDINGS: There is no acute fracture/dislocation evident in the left shoulder. The acromioclavicula r and glenohumeral joint spaces appear within normal limits. The visualized ribs are intact . IMPRESSION: Unremarkable single view left shoulder.
[2021-05-24] MEDS: LOPERAMIDE 2 MG CAP PO PRN (17:09)
[2021-05-25] MEDS: diazePAM 5 MG TAB PO SCH ×2 (05:11→20:26)
[2021-05-25] MEDS: SODIUM CHLORIDE 0.9% 1,000 ML IV SCH ×2 (05:22→19:11)
[2021-05-25] MEDS: SYMBICORT 160-4.5 MCG INHALER INHALATION SCH ×2 (08:03→20:19)
[2021-05-25] MEDS: FUROSEMIDE 20 MG TAB PO SCH (08:56)
[2021-05-25] MEDS: POTASSIUM CHLORIDE ER 10 MEQ TAB.ER.PRT PO SCH (08:56)
[2021-05-25] MEDS: NICOTINE 14MG/24HR PATCH TRANSDERM SCH (08:56)
[2021-05-25] MEDS: RIVAROXABAN 20 MG TAB PO SCH (08:56)
[2021-05-25] MEDS: THIAMINE 100 MG TAB PO SCH ×2 (08:56→19:13)
[2021-05-25] MEDS: FAMOTIDINE 20 MG TAB PO SCH ×2 (08:56→20:26)
[2021-05-25 09:54] LABS: Albumin 3.7 g/dL (3.80-4.90); Albumin/Globulin Ratio 1.61 (1.60-3.17); Bilirubin, Conjugated 0.4 mg/dL (0.20-0.40); Bilirubin,Unconjugated 0.5 mg/dL; Globulin 2.3 g/dL (1.6-3.3); Total Bilirubin 0.9 mg/dL (0.2-1.2)
--- NOTE | 2021-05-25 19:22 | P.PN ---
Subjective This is a pleasant 60 years old male with past medical history of right leg DVT, pulmonary embolism, intracranial hemorrhage with CVA/TIA, chronic e ncephalopathy, HE DRINKS 1-2/5 OF LIQUOR EVERY DAY. He is Dr. 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 He follows up with a neurologist for chronic neck pain and back pain Patient states that his last drink was yesterday afternoon, after that he started to have left sided chest pain, in the anterior chest, nonradiating, about 8/10 in severity, felt like aching associated with some breathing difficulty. He states he usually have this chest pain when he quit drinking however he is heavy smoker about half pack per day. Also to quit and he agrees . Also patient has bilateral leg swelling. Patient looks anxious with tremor secondary to his alcohol withdrawal Patient also complains from pain, first to me its and the tip of his penis however later on he told me its on the right lower quadrant abdomen associated with tenderness, no rebound tenderness. Genital area examination of his looked normal with no tenderness. He had last bowel movement yesterday which was normal. He denies nausea vomiting. He drinks about 2/5 of liquor every day, he denies illicit drugs. The breast but not suicidal. Xarelto for his history of DVT and PE 2 He had an echocardiogram last year showing ejection fraction of 55-60%. 05/22/2021 Patient awake alert, he has no chest pain today. No abdominal pain. 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 Her for discharge. No nausea vomiting and tolerates diet but he has some diarrhea. We will check C. diff although the suspicion is low. Hemodynamically stable, his oxygen saturation is 94% on room air. WBC is back to normal at 4.4, bilirubin today went up slightly at 1.9, his CIWA score is 9-12. Other than that he continued on Xarelto, ibuprofen admitted. IV fluids were stopped and we going to treat him for alcohol withdrawal and once stabilized he can be discharged. 05/23/2021 Patient with no chest pain or abdominal pain and only having diarrhea but C. diff is negative and he is on Imodium which is a started today as needed. He looks his stable but is still have significant alcohol withdrawal with CIWA score of 9-15. Hemodynamically and vitals are stable. Labs are stable. Continue with CIWA protocol 05/24/2021 He looks alert and awake and less shaky today however his CIWA score is still elevated at 9-14. He remains on CIWA protocol with Ativan. Valium 5 mg at bedtime is admitted today. No abdominal pain or nausea vomiting but he was started on Imodium for his diarrhea, this morning states that last area was yesterday evening. We will keep monitoring currently Vitals are stable. He remains on Xarelto, normal saline at 75 mL/h Today he was complaining of from left shoulder pain with no movements restriction, he says that he felt few weeks ago and hurt his right shoulder but yesterday his left shoulder start hurting as well. He wants to do x-ray for his shoulder which is ordered and pending 05/25/2021 His alcohol withdrawal symptoms are improving, he feels much better after he took a shower daily. CIWA score is about 9 today. He remains on Valium 5 mg at bedtime, and he is also on CIWA protocol but he did not need any acute event today. History of have ongoing diarrhea but no abdominal pain and he ate 100% of his diet Left shoulder x-ray is negative He remains on Xarelto on the muscle and a 75 mL per hour He also on Imodium as needed. That's Questran and patient may benefit from GI evaluation as an outpatient and he agrees Objective - Vital Signs Vital signs: Vital Signs Temp 98.5 F 05/25/21 12:03 Pulse 74 05/25/21 12:03 Resp 20 05/25/21 12:03 BP 146/90 05/25/21 12:03 Pulse Ox 98 05/25/21 12:03 Intake & Output 05/24/21 05/25/21 05/25/21 18:59 06:59 18:59 Intake Total 1860 Output Total 450 Balance 1410 Intake: Intake, IV Titration 900 Amount Sodium Chloride 0.9% 1, 900 000 ml @ 75 mls/hr IV . [id number] [facility] Rx#:[id number] Oral 960 Output: Urine 450 Other: # Voids 2 # Bowel Movements 3 - Exam GENERAL: The patient is alert and oriented x3, not in any acute distress. Well developed, well nourished. HEENT: Pupils are round and equally reacting to light. EOMI. No scleral icterus. No conjunctival pallor. Normocephalic, atraumatic. No pharyngeal erythema. No thyromegaly. CARDIOVASCULAR: S1 and S2 present. No murmurs, rubs, or gallops. PULMONARY: Chest is clear to auscultation, no wheezing or crackles. ABDOMEN: Soft, nontender, nondistended, normoactive bowel sounds. No palpable organomegaly. MUSCULOSKELETAL: No joint swelling or deformity. EXTREMITIES: No cyanosis, clubbing, or pedal edema. NEUROLOGICAL: Gross neurological examination did not reveal any focal deficits. SKIN: No rashes. no petechiae. - Labs CBC & Chem 7: 05/22/21 05:22 05/24/21 05:02 Labs: Abnormal Lab Results - Last 24 Hours (Table) 05/25/21 Range/Units 06:15 AST 56 H (14-35) U/L ALT 84 H (10-49) U/L Total Protein 6.0 L (6.2-8.2) g/dL Albumin 3.70 L (3.80-4.90) g/dL Assessment and Plan Assessment: alcohol withdrawal Alcohol abuse Mild ongoing diarrhea with no abdominal pain and he tolerates diet Nicotine dependence Left shoulder pain Gastroenteritis, mild most likely secondary to alcohol effect. Responding to symptomatic treatment. No need for antibiotics as patient is afebrile with no leukocytosis or other symptoms to suggest infection. Chest pain, rule out cardiac causes resolved and cleared by legal researcher Abdominal pain and tenderness, resolved History of DVT thrombosis and pulmonary embolism embolism History of CVS with intracranial hemorrhage Plan: this is a pleasant 60 years old male who presents with alcohol withdrawal With CIWA protocol. Thiamine Needle Straightener cleared the patient. Abdominal pain resolved. At Questran and Imodium when necessary and GI evaluation as an outpatient for his ongoing mild diarrhea Labs and medication were reviewed.. Continue same treatment. Continue with symptomatic treatment. Resume home medication. Monitor lytes and vitals. DVT and GI prophylaxis. Further recommendations depends on the clinical course of the patient DVT prophylaxis: xarelto GI Prophylaxis: Pepcid Prognosis is guarded
[2021-05-25 20:04] VITALS: RESP 18
[2021-05-26 05:02] VITALS: BP 139/90; PULSE 60; TEMP 97.3
[2021-05-26] MEDS: SYMBICORT 160-4.5 MCG INHALER INHALATION SCH (08:15)
[2021-05-26] MEDS: RIVAROXABAN 20 MG TAB PO SCH (08:21)
[2021-05-26] MEDS: NICOTINE 14MG/24HR PATCH TRANSDERM SCH (08:21)
[2021-05-26] MEDS: THIAMINE 100 MG TAB PO SCH (08:21)
[2021-05-26] MEDS: POTASSIUM CHLORIDE ER 10 MEQ TAB.ER.PRT PO SCH (08:21)
[2021-05-26] MEDS: FAMOTIDINE 20 MG TAB PO SCH (08:21)
[2021-05-26] MEDS: FUROSEMIDE 20 MG TAB PO SCH (08:21)
[2021-05-26] MEDS ORDERED: CHOLESTYRAMINE (WITH SUGAR) 4 GM PACKET PO SCH (19:19)
--- NOTE | 2021-05-26 21:01 | P.DS ---
Providers Date of admission: 05/21/21 06:34 Attending physician: Oneal Talbert MD Primary care physician: [facility] Hospital Course: Diagnoses: alcohol withdrawal Alcohol abuse Mild ongoing diarrhea with no abdominal pain and he tolerates diet Nicotine dependence Left shoulder pain Gastroenteritis, mild most likely secondary to alcohol effect. Responding to symptomatic treatment. No need for antibiotics as patient is afebrile with no leukocytosis or other symptoms to suggest infection. Chest pain, rule out cardiac causes resolved and cleared by animal treatment investigator Abdominal pain and tenderness, resolved History of DVT thrombosis and pulmonary embolism embolism History of CVS with intracranial hemorrhage Hospital course: This is a pleasant 60 years old male with past medical history of right leg DVT, pulmonary embolism, intracranial hemorrhage with CVA/TIA, chronic encephalopathy, HE DRINKS 1-2/5 OF LIQUOR EVERY DAY. He is Dr. 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 He follows up with a neurologist for chronic neck pain and back pain Patient was admitted with alcohol withdrawal and he was treated with CIWA protocol with Ativan as needed and family as well as Valium, patient showed interval improvement over several days gradually and on the day of discharge his CIWA score was only 5 and he did not need any Ativan or Valium upon discharge. Patient was very awake and alert and appropriate and he agrees to quit drinking. Chin he has some chest pain evaluated by animal treatment investigator which is resolved with no further cardiac workup as needed per neurologist cleared him for discharge and follow-up as an outpatient. He is instructed to follow up with Dr. Palumbo in 2 weeks and he agrees Patient also with chronic diarrhea most likely secondary to alcohol intake. C. diff was negative. No signs of infection with no leukocytosis and no fever. Responded partially to Imodium. Patient was referred to GI as an outpatient with Gilberto Summers and he agrees with the appointments made for him on 06/09 stating he will follow-up Also patient wanted to see a surgeon for his gallstone so he was referred to Dr. Dudley an outpatient. Patient has a symptomatic gallstone disease and he tolerates diet well with no abdominal pain or tenderness. Discharge patient back to his baseline with no other symptoms. Patient was eager to go home today. Problems and management plan were discussed with the patient and he verbalized understanding and acceptance Patient was found stable and can be discharged home however he needs follow-up as an outpatient. Patient was instructed to follow up with PCP within one week and patient agrees. Patient was instructed with the appointments as above Physical exam Gen: patient is a AAOx3, no distress CVS: S1-S2, RRR, no murmur Lungs: B/L CTA, no wheezing Abdomen: soft, no distention, no tenderness, positive bowel sounds Extremity: no leg edema or induration Time spent more than 35 minutes Patient Condition at Discharge: Good Plan - Discharge Summary New Discharge Prescriptions: New Nicotine 14Mg/24Hr Patch [Habitrol] 1 patch TRANSDERM DAILY #4 patch Famotidine [Pepcid] 20 mg PO BID #60 tab Cholestyramine (with Sugar) [Questran Packet] 4 gm PO BID@1000,1800 3 Days #6 packet diazePAM [Valium] 2 mg PO DIRECTED 2 Days #2 tab Thiamine [Vitamin B-1] 100 mg PO BID-W/MEALS #60 tab Continue Furosemide [Lasix] 20 mg PO DAILY Budesonide/Formoterol Fumarate [Symbicort 160-4.5 Mcg Inhaler] 2 puff INHALATION RT-BID Rivaroxaban [Xarelto] 20 mg PO DAILY Potassium Chloride ER [K-Dur 10] 10 meq PO DAILY Discharge Medication List Potassium Chloride ER [K-Dur 10] 10 meq PO DAILY 03/24/21 [History] Rivaroxaban [Xarelto] 20 mg PO DAILY 03/24/21 [History] Budesonide/Formoterol Fumarate [Symbicort 160-4.5 Mcg Inhaler] 2 puff INHALATION RT-BID 05/21/21 [History] Furosemide [Lasix] 20 mg PO DAILY 05/21/21 [History] Cholestyramine (with Sugar) [Questran Packet] 4 gm PO BID@1000,1800 3 Days #6 packet 05/26/21 [Rx] Famotidine [Pepcid] 20 mg PO BID #60 tab 05/26/21 [Rx] Nicotine 14Mg/24Hr Patch [Habitrol] 1 patch TRANSDERM DAILY #4 patch 05/26/21 [Rx] Thiamine [Vitamin B-1] 100 mg PO BID-W/MEALS #60 tab 05/26/21 [Rx] diazePAM [Valium] 2 mg PO DIRECTED 2 Days #2 tab 05/26/21 [Rx] Follow up Appointment(s)/Referral(s): Ghada Albarado MD [Primary Care Provider] - 05/28/21 9:30 am Bisi Palumbo MD [STAFF PHYSICIAN] - 06/09/21 2:00 pm (gastroeneterologist for your chronic diarrhea and elevated liver enzymes ) Apryl Dudley DO [Doctor of Osteopathic Medicine] - 06/09/21 9:30 am (general surgeon for your gall stone ) Jw Palumbo MD [STAFF PHYSICIAN] - 2 Weeks (Unit Clerk office will call you with an appointment date/time with Dr. Melgra ) [employer] [NON-STAFF] - As Needed Patient Instructions/Handouts: How to Stop Smoking (DC), Gastroenteritis (DC), Alcohol Withdrawal (ED) Activity/Diet/Wound Care/Special Instructions: Heart healthy diet activity is restricted until you see your doctor Discharge/Stand Alone Forms: AA Meetings [place] Discharge Disposition: HOME SELF-CARE
== END 2021-05-26 10:05 | disposition home or self-care (01) | DRG 313 ==
LOC: EC 04:36 → 4SSUR 06:34 → 5NMEDONC 16:21
PROVIDERS: ADMIT Internal Medicine; ATTEND Internal Medicine
PROC: HZ2ZZZZ Detoxification Services for Substance Abuse Treatment (ICD-10-PCS; principal; 2021-05-21)
DX: R07.89 Other chest pain (principal); F10.231 Alcohol dependence with withdrawal delirium; G93.40 Encephalopathy, unspecified; K52.1 Toxic gastroenteritis and colitis; Z20.822 Contact with and (suspected) exposure to COVID-19; T51.91XA Toxic effect of unspecified alcohol, accidental (unintentional), initial encounter; K76.0 Fatty (change of) liver, not elsewhere classified; M25.512 Pain in left shoulder; F17.210 Nicotine dependence, cigarettes, uncomplicated; I08.3 Combined rheumatic disorders of mitral, aortic and tricuspid valves; F10.229 Alcohol dependence with intoxication, unspecified; G89.29 Other chronic pain; M54.2 Cervicalgia; K80.20 Calculus of gallbladder without cholecystitis without obstruction; Z86.718 Personal history of other venous thrombosis and embolism; Z79.01 Long term (current) use of anticoagulants; Z79.51 Long term (current) use of inhaled steroids; Z79.899 Other long term (current) drug therapy; Z86.711 Personal history of pulmonary embolism; Z86.73 Personal history of transient ischemic attack (TIA), and cerebral infarction without residual deficits; Z88.0 Allergy status to penicillin; Z71.41 Alcohol abuse counseling and surveillance of alcoholic; Z71.6 Tobacco abuse counseling
CPT/HCPCS: 36415; 74177; 80048; 80053; 80076; 80320; 83735; 84484; 85025; 87324; 87635; 93005; 93306; 94640; 96372; 96374; 99285

== ENCOUNTER → 2021-06-19 | Outpatient (CLI) | payer OTHER ==
[2021-06-19 16:03] LABS: Basophils # (A) 0.03 X 10*3/uL (0.00-0.10); Basophils % (A) 0.5 %; Eosinophils # (A) 0.09 X 10*3/uL (0.04-0.35); Eosinophils % (A) 1.4 %; HGB 13.2 g/dL (13.0-17.0); Lymphocytes # (A) 0.78 X 10*3/uL (0.90-5.00); Lymphocytes % (A) 12.1 %; MCHC 32.2 g/dL (32.0-37.0); MCV 99.3 fL (80.0-97.0); Mean Platelet Volume 10.4 fL (9.5-12.2); Monocytes % (A) 10.8 %; Neutrophils # (A) 4.83 X 10*3/uL (1.80-7.70); Neutrophils % (A) 74.7 %; Platelet Count 262 X 10*3/uL (140-440); RBC 4.13 X 10*6/uL (4.40-5.60); RDW 14.2 % (11.5-14.5); WBC 6.46 X 10*3/uL (4.50-10.00)
[2021-06-19 17:28] LABS: African American GFR (CKD) 112.9 (60.0-200.0); Albumin/Globulin Ratio 1.74 (1.60-3.17); Anion Gap 10.6 mmol/L (4.00-12.00); BUN/Creat Ratio 11.43 Ratio (12.00-20.00); Blood Urea Nitrogen 9.2 mg/dL (9.0-27.0); Calcium 9.2 mg/dL (8.7-10.3); Carbon Dioxide 25.4 mmol/L (21.6-31.8); Globulin 2.3 g/dL (1.6-3.3); Non-African American GFR(CKD) 97.4 (60.0-200.0); Total Bilirubin 0.4 mg/dL (0.30-1.20); Total Protein 6.3 g/dL (6.2-8.2)
== END | disposition home or self-care (01) ==
LOC: LABWHC1 10:09
PROVIDERS: ATTEND Internal Medicine
DX: I87.2 Venous insufficiency (chronic) (peripheral) (principal); J44.9 Chronic obstructive pulmonary disease, unspecified; R60.0 Localized edema
CPT/HCPCS: 36415; 80053; 85025

== ENCOUNTER 2021-07-18 20:04 | Observation (INO) | payer OTHER ==
[2021-07-18] MEDS ORDERED: SODIUM CHLORIDE 0.9% 1,000 ML IV STA ×3 (20:38→21:41)
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
[2021-07-18] MEDS ORDERED: PANTOPRAZOLE 40 MG/10 ML VIAL IVP STA (20:57)
[2021-07-18 21:05] LABS: Basophils % (A) 1 %; Eosinophils % (A) 1 %; HCT 48.8 % (39.0-53.0); HGB 16.6 gm/dL (13.0-17.5); Lymphocytes # (A) 1.1 k/uL (1.0-4.8); Lymphocytes % (A) 35 %; MCHC 33.9 g/dL (31.0-37.0); MCV 94.1 fL (80.0-100.0); Monocytes # (A) 0.2 k/uL (0-1.0); Monocytes % (A) 7 %; Neutrophils # (A) 1.7 k/uL (1.3-7.7); Neutrophils % (A) 53 %; RBC 5.18 m/uL (4.30-5.90); WBC 3.2 k/uL (3.8-10.6)
[2021-07-18 21:15] LABS: ALT 54 U/L (4-49); AST 64 U/L (17-59); African American GFR (CKD) >90 (>60 ml/min/1.73 sqM); Albumin 4.3 g/dL (3.5-5.0); Alkaline Phosphatase 83 U/L (38-126); Anion Gap 15 mmol/L; Blood Urea Nitrogen 11 mg/dL (9-20); Calcium 9.1 mg/dL (8.4-10.2); Carbon Dioxide 23 mmol/L (22-30); Chloride 102 mmol/L (98-107); Glucose 113 mg/dL (74-99); Magnesium 1.6 mg/dL (1.6-2.3); Non-African American GFR(CKD) >90 (>60 ml/min/1.73 sqM); Potassium 4.1 mmol/L (3.5-5.1); Sodium 140 mmol/L (137-145); Total Bilirubin 0.8 mg/dL (0.2-1.3); Total Protein 7.2 g/dL (6.3-8.2)
[2021-07-18 21:18] LABS: Platelet Count 162 k/uL (150-450)
[2021-07-18 21:22] LABS: Alcohol 294 mg/dL
[2021-07-18 21:34] LABS: INR 0.9 (<1.2); Prothrombin Time 9.9 sec (9.0-12.0)
--- NOTE | 2021-07-18 22:08 | XR ---
EXAMINATION TYPE: XR chest 2V DATE OF EXAM: 07/18/2021 COMPARISON: 03/24/2021 HISTORY: Short of breath TECHNIQUE: FINDINGS: Heart is normal. Lungs are clear of infiltrate. Costophrenic angles are clear. Bony thorax is intact. IMPRESSION: Normal chest.
[2021-07-18] MEDS ORDERED: THIAMINE 100 MG/ML 2 ML VIAL IM STA (23:15)
[2021-07-18] MEDS ORDERED: LORazepam 2 MG/ML INJ IV PRN ×2 (23:15)
[2021-07-18] MEDS: THIAMINE 100 MG TAB PO SCH (23:30)
--- NOTE | 2021-07-18 23:37 | CT ---
EXAMINATION TYPE: CT angio chest DATE OF EXAM: 07/18/2021 COMPARISON: 08/21/2019 HISTORY: R/O PE CT DLP: mGycm Automated exposure control for dose reduction was used. CONTRAST: Performed with IV Contrast, patient injected with 80 mL of Isovue 370. Images obtained from the thoracic inlet to the diaphragm with IV contrast. There are 3-D post process ed images. The lungs are clear of infiltrate. There is no pleural effusion. There is no mediastinal adenopathy. There is 4 cm aneurysm of the ascending aorta. There is no dissection. There are no hilar masses. The re is normal contrast opacification of the pulmonary arteries. There are no filling defects. There is no evidence of a pulmonary mass. Upper bowel soft tissues are intact. There is some fatty infiltrati on of the liver. There is a 2.5 cm cystic mass anterior to the trachea in the midline above the thyroid gland. Thoracic spine is intact. There is no compression fracture. Sternum is intact. IMPRESSION: No evidence of pulmonary embolism. Pretracheal thin wall cyst could be thyroglossal duct cyst. Unchanged. No suspicious pulmonary mass. Mild aneurysm of the ascending aorta. Aorta appears slightly increased compared to old exam.
[2021-07-18] MEDS ORDERED: NALOXONE 0.4 MG/ML 1 ML VIAL IV PRN (23:54)
[2021-07-18] MEDS ORDERED: ACETAMINOPHEN TAB 325 MG TAB PO PRN (23:54)
[2021-07-19] MEDS: LORazepam 2 MG/ML INJ IV PRN ×5 (01:03→21:14)
[2021-07-19] MEDS: THIAMINE 100 MG TAB PO SCH ×2 (08:24→16:24)
[2021-07-19 14:28] VITALS: RESP 18
[2021-07-19] MEDS ORDERED: ONDANSETRON 4 MG/2 ML VIAL IVP PRN (14:57)
[2021-07-19] MEDS: SODIUM CHLORIDE 0.9% 1,000 ML IV SCH ×2 (15:08→22:25)
[2021-07-19] MEDS: NICOTINE 14MG/24HR PATCH TRANSDERM SCH (16:24)
[2021-07-19] MEDS: FOLIC ACID 1 MG TAB PO SCH (16:24)
[2021-07-19] MEDS: FUROSEMIDE 20 MG TAB PO SCH (16:24)
[2021-07-19 16:34] LABS: Basophils % (A) 0 %; Eosinophils # (A) 0.1 k/uL (0-0.7); Eosinophils % (A) 1 %; HCT 42.2 % (39.0-53.0); HGB 14.1 gm/dL (13.0-17.5); Lymphocytes # (A) 0.8 k/uL (1.0-4.8); Lymphocytes % (A) 16 %; MCH 31.7 pg (25.0-35.0); MCHC 33.5 g/dL (31.0-37.0); MCV 94.8 fL (80.0-100.0); Mean Platelet Volume 7.1; Monocytes # (A) 0.3 k/uL (0-1.0); Monocytes % (A) 6 %; Neutrophils # (A) 3.8 k/uL (1.3-7.7); Neutrophils % (A) 75 %; Platelet Count 113 k/uL (150-450); RBC 4.45 m/uL (4.30-5.90); RDW 12.9 % (11.5-15.5); WBC 5.1 k/uL (3.8-10.6)
[2021-07-19] MEDS: RIVAROXABAN 20 MG TAB PO SCH (17:20)
[2021-07-19] MEDS: SYMBICORT 160-4.5 MCG INHALER INHALATION SCH (20:28)
[2021-07-19] MEDS: FAMOTIDINE 20 MG TAB PO SCH (21:09)
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
[2021-07-20] MEDS: LORazepam 2 MG/ML INJ IV PRN (01:17)
[2021-07-20] MEDS: RIVAROXABAN 20 MG TAB PO SCH (07:50)
[2021-07-20] MEDS: THIAMINE 100 MG TAB PO SCH (07:50)
[2021-07-20] MEDS: FAMOTIDINE 20 MG TAB PO SCH (07:50)
[2021-07-20] MEDS: NICOTINE 14MG/24HR PATCH TRANSDERM SCH (07:50)
[2021-07-20] MEDS: SODIUM CHLORIDE 0.9% 1,000 ML IV SCH ×2 (07:50→15:27)
[2021-07-20] MEDS: FOLIC ACID 1 MG TAB PO SCH (07:50)
[2021-07-20] MEDS: FUROSEMIDE 20 MG TAB PO SCH (07:50)
[2021-07-20] MEDS: SYMBICORT 160-4.5 MCG INHALER INHALATION SCH (07:57)
[2021-07-20 12:40] LABS: Basophils # (A) 0.01 X 10*3/uL (0.00-0.10); Basophils % (A) 0.2 %; Eosinophils # (A) 0.06 X 10*3/uL (0.04-0.35); Eosinophils % (A) 1.5 %; HCT 40.8 % (39.6-50.0); HGB 13.9 g/dL (13.0-17.0); Lymphocytes # (A) 0.71 X 10*3/uL (0.90-5.00); Lymphocytes % (A) 17.6 %; MCHC 34.1 g/dL (32.0-37.0); MCV 93.8 fL (80.0-97.0); Mean Platelet Volume 10.8 fL (9.5-12.2); Monocytes # (A) 0.33 X 10*3/uL (0.20-1.00); Monocytes % (A) 8.2 %; Neutrophils # (A) 2.91 X 10*3/uL (1.80-7.70); Neutrophils % (A) 72.3 %; Platelet Count 122 X 10*3/uL (140-440); RBC 4.35 X 10*6/uL (4.40-5.60); RDW 13.1 % (11.5-14.5); WBC 4.03 X 10*3/uL (4.50-10.00)
[2021-07-20 12:58] LABS: African American GFR (CKD) 121.4 (60.0-200.0); Anion Gap 9.7 mmol/L (4.00-12.00); BUN/Creat Ratio 12.23 Ratio (12.00-20.00); Blood Urea Nitrogen 8.3 mg/dL (9.0-27.0); Calcium 8.5 mg/dL (8.7-10.3); Carbon Dioxide 23.8 mmol/L (21.6-31.8); Non-African American GFR(CKD) 104.7 (60.0-200.0); Potassium 3.9 mmol/L (3.5-5.5)
[2021-07-20 14:42] VITALS: BP 137/91; PULSE 88; TEMP 98.4
--- NOTE | 2021-07-20 16:50 | P.DS ---
Providers Date of admission: 07/18/21 23:44 Expected date of discharge: 07/20/21 Attending physician: Oneal Talbert MD Primary care physician: Per [facility] Hospital Course: Chief Complaint: Alcohol intoxication Mr. Toribio is a 60-year-old male with a past medical history of DVT, PE, osteoarthritis, obstructive sleep apnea, alcohol dependence coming into the emergency room stating that he has been binge drinking almost half a gallon of vodka for the past 4 days. Patient got himself admitted because he wants to try quitting alcohol and cannot do that by himself. He states that he has history of DVT and PE and takes Xarelto on regular basis. As per ED note there was a mention about vomiting blood, on questioning the patient mention that he did not notice any bright red blood, was not sure if it was a streak of blood. Patient denied having any more nausea or vomiting. He required 2-3 doses of Ativan since admission. Patient denied having any chest pain or palpitations. He denied having any cough or difficulty in breathing. No abdominal pain or bleeding per rectum. He denies having any dysuria or hematuria. Patient mentions about having chronic low back pain and was supposed to follow-up with neurology Patient's vital signs temperature of 98, heart rate 110, respiratory rate 18, blood pressure 141/98 saturating at 96% on room. On reviewing his labs white count 3.2, hemoglobin 16.6, platelets 162. Sodium 140, potassium 4.1, chloride 102, bicarb 23, BUN 11, creatinine 0.69. Lactic acid 3.3, repeat is 1 currently. Alcohol level of 294. Coronavirus negative. Patient also had a chest x-ray done that was normal. He had CTA of the chest that was negative for PE but was showing mild aneurysm of the ascending aorta. 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 Hospital course - patient was given IV fluids, was monitored on CIWA scale. He required 2-3 doses of Ativan to calm him down. Patient states that his back to his baseline and wanted to be discharged home. Patient is all dressed up and sitting to be discharged home. No acute events reported by nursing staff, he did not require any Ativan in the past 24 hours. Patient's vital signs temperature 98.4, heart rate 88, respiratory rate 18, blood pressure 137/91 surgery in 98% on room air. Patient's labs have been reviewed white count of 4, hemoglobin 13.9, platelets 122. Sodium and recommendations dependent, chloride 102, bicarbonate 23, BUN 8, creatinine 0.7. 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 Discussed this in detail with the patient, he mentions that he is aware of them cystic mass and is going to follow up with his primary care physician in 2-3 days as he has an appointment coming up with them. PHYSICAL EXAMINATION: GENERAL: The patient is alert and oriented x3, not in any acute distress. HEENT: Pupils are round and equally reacting to light. EOMI. No scleral icterus. No conjunctival pallor. Normocephalic, atraumatic. No pharyngeal erythema. No thyromegaly. CARDIOVASCULAR: S1 and S2 present. No murmurs, rubs, or gallops. PULMONARY: Bilateral good air entry into lung hernandez ABDOMEN: Soft, nontender, nondistended, normoactive bowel sounds. No palpable organomegaly. MUSCULOSKELETAL: No joint swelling or deformity. EXTREMITIES: No cyanosis, clubbing, or pedal edema. NEUROLOGICAL: Gross neurological examination did not reveal any focal deficits. SKIN: No rashes. DISCHARGE DIAGNOSIS Acute alcohol intoxication Delirium tremens Chronic thrombocytopenia Transaminitis due to alcohol abuse History of DVT and PE on anticoagulation with Xarelto History of obstructive sleep apnea History of alcohol abuse Discussed with him in detail about quitting alcohol. Patient states that he has prescriptions for his multivitamin including thiamine and folic acid at home and does not need any refills. Follow-up- advised to follow-up with his PCP in 2-3 days. Plan - Discharge Summary Discharge Rx Participant: No New Discharge Prescriptions: No Action Furosemide [Lasix] 20 mg PO BID Budesonide/Formoterol Fumarate [Symbicort 160-4.5 Mcg Inhaler] 2 puff INHALATION RT-BID Nicotine 14Mg/24Hr Patch [Habitrol] 1 patch TRANSDERM DAILY #4 patch Famotidine [Pepcid] 20 mg PO BID #60 tab Potassium Chloride ER [K-Dur 20] 20 meq PO DAILY Rivaroxaban [Xarelto] 20 mg PO DAILY Thiamine [Vitamin B-1] 100 mg PO BID-W/MEALS #60 tab Discharge Medication List Rivaroxaban [Xarelto] 20 mg PO DAILY 03/24/21 [History] Budesonide/Formoterol Fumarate [Symbicort 160-4.5 Mcg Inhaler] 2 puff INHALATION RT-BID 05/21/21 [History] Furosemide [Lasix] 20 mg PO BID 05/21/21 [History] Famotidine [Pepcid] 20 mg PO BID #60 tab 05/26/21 [Rx] Nicotine 14Mg/24Hr Patch [Habitrol] 1 patch TRANSDERM DAILY #4 patch 05/26/21 [Rx] Thiamine [Vitamin B-1] 100 mg PO BID-W/MEALS #60 tab 05/26/21 [Rx] Potassium Chloride ER [K-Dur 20] 20 meq PO DAILY 07/19/21 [History] Follow up Appointment(s)/Referral(s): Ghada Albarado MD [Primary Care Provider] - 1-2 days Patient Instructions/Handouts: Abuse of Alcohol (DC) Discharge Disposition: HOME SELF-CARE
== END 2021-07-20 15:37 | disposition home or self-care (01) ==
LOC: EC 20:04 → 4SSUR 23:44
PROVIDERS: ADMIT Internal Medicine; ATTEND Internal Medicine
DX: F10.231 Alcohol dependence with withdrawal delirium (principal); F10.229 Alcohol dependence with intoxication, unspecified; E87.2 Acidosis; R79.89 Other specified abnormal findings of blood chemistry; R74.01 Elevation of levels of liver transaminase levels; I71.2 Thoracic aortic aneurysm, without rupture; R22.1 Localized swelling, mass and lump, neck; G47.33 Obstructive sleep apnea (adult) (pediatric); G89.29 Other chronic pain; M19.90 Unspecified osteoarthritis, unspecified site; K76.0 Fatty (change of) liver, not elsewhere classified; F41.9 Anxiety disorder, unspecified; F32.9 Major depressive disorder, single episode, unspecified; M54.50 Low back pain, unspecified; F17.210 Nicotine dependence, cigarettes, uncomplicated; D69.6 Thrombocytopenia, unspecified; K02.9 Dental caries, unspecified; E66.9 Obesity, unspecified; Z68.28 Body mass index [BMI] 28.0-28.9, adult; Y90.8 Blood alcohol level of 240 mg/100 ml or more; Z20.822 Contact with and (suspected) exposure to COVID-19; Z79.51 Long term (current) use of inhaled steroids; Z79.01 Long term (current) use of anticoagulants; Z79.899 Other long term (current) drug therapy; Z88.0 Allergy status to penicillin; Z86.718 Personal history of other venous thrombosis and embolism; Z86.711 Personal history of pulmonary embolism; Z86.73 Personal history of transient ischemic attack (TIA), and cerebral infarction without residual deficits; Z86.14 Personal history of Methicillin resistant Staphylococcus aureus infection; Z87.820 Personal history of traumatic brain injury; Z80.1 Family history of malignant neoplasm of trachea, bronchus and lung; Z82.49 Family history of ischemic heart disease and other diseases of the circulatory system; Z80.9 Family history of malignant neoplasm, unspecified; Z81.2 Family history of tobacco abuse and dependence
CPT/HCPCS: 96376 ×2; 96361 ×4; 96372; 96374; 96375; 99285; 36415; 94640 ×2; 94760; 93005; 85379; 80053; 80048; 84443; 83605 ×2; 83735; 84484; 85025 ×3; 85610; 85730; 87635; 71046; 71275; G0378 ×2; G0480; S4990 ×2; J2060 ×2; J3411; C9113; Q9967; 80320

== ENCOUNTER 2021-10-10 15:30 | Observation (INO) | payer OTHER ==
[2021-10-10] MEDS ORDERED: DIPH,PERTUS(ACELL)TETVAC-LF 0.5 ML VIAL IM ONE (15:50)
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
[2021-10-10 16:26] LABS: Basophils % (A) 1 %; Eosinophils % (A) 0 %; HGB 16.8 gm/dL (13.0-17.5); Lymphocytes # (A) 0.9 k/uL (1.0-4.8); Lymphocytes % (A) 17 %; MCH 32.4 pg (25.0-35.0); MCHC 33.6 g/dL (31.0-37.0); MCV 96.5 fL (80.0-100.0); Mean Platelet Volume 7.7; Monocytes # (A) 0.2 k/uL (0-1.0); Monocytes % (A) 5 %; Neutrophils # (A) 3.9 k/uL (1.3-7.7); Neutrophils % (A) 76 %; Platelet Count 100 k/uL (150-450); RBC 5.18 m/uL (4.30-5.90); WBC 5.1 k/uL (3.8-10.6)
[2021-10-10 16:44] LABS: ALT 54 U/L (4-49); AST 74 U/L (17-59); African American GFR (CKD) >90 (>60 ml/min/1.73 sqM); Albumin 4.6 g/dL (3.5-5.0); Alkaline Phosphatase 95 U/L (38-126); Anion Gap 19 mmol/L; Blood Urea Nitrogen 17 mg/dL (9-20); Calcium 8.7 mg/dL (8.4-10.2); Carbon Dioxide 19 mmol/L (22-30); Chloride 100 mmol/L (98-107); Glucose 88 mg/dL (74-99); Non-African American GFR(CKD) >90 (>60 ml/min/1.73 sqM); Sodium 138 mmol/L (137-145); Total Bilirubin 1.1 mg/dL (0.2-1.3); Total Protein 7.7 g/dL (6.3-8.2)
[2021-10-10 16:59] LABS: Alcohol 371 mg/dL
[2021-10-10] MEDS ORDERED: LORazepam 2 MG/ML INJ IV PRN (17:00)
[2021-10-10] MEDS ORDERED: THIAMINE 100 MG/ML 2 ML VIAL IM STA (17:00)
[2021-10-10] MEDS ORDERED: NALOXONE 0.4 MG/ML 1 ML VIAL IV PRN (17:01)
[2021-10-10] MEDS: LORazepam 2 MG/ML INJ IV PRN (21:36)
[2021-10-11] MEDS: LORazepam 2 MG/ML INJ IV PRN ×4 (03:18→21:26)
[2021-10-11] MEDS: THIAMINE 100 MG TAB PO SCH ×2 (07:45→15:39)
[2021-10-11] MEDS ORDERED: ONDANSETRON 4 MG/2 ML VIAL IVP PRN (12:07)
[2021-10-11] MEDS: SODIUM CHLORIDE 0.9% 1,000 ML IV SCH (12:17)
[2021-10-11] MEDS: FAMOTIDINE 20 MG/2 ML VIAL IV SCH (21:26)
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
[2021-10-12] MEDS: THIAMINE 100 MG TAB PO SCH ×2 (08:22→16:48)
[2021-10-12] MEDS: SODIUM CHLORIDE 0.9% 1,000 ML IV SCH ×3 (08:22→16:52)
[2021-10-12] MEDS: FAMOTIDINE 20 MG/2 ML VIAL IV SCH (08:22)
[2021-10-12] MEDS: RIVAROXABAN 20 MG TAB PO SCH (12:34)
[2021-10-12] MEDS: FUROSEMIDE 20 MG TAB PO SCH ×2 (12:34→16:51)
[2021-10-12] MEDS: POTASSIUM CHLORIDE ER 20 MEQ TAB.ER PO SCH (12:35)
[2021-10-12] MEDS: FAMOTIDINE 20 MG TAB PO SCH (20:15)
[2021-10-13] MEDS: SODIUM CHLORIDE 0.9% 1,000 ML IV SCH (05:24)
[2021-10-13 07:34] VITALS: RESP 18; TEMP 98.3
[2021-10-13] MEDS: RIVAROXABAN 20 MG TAB PO SCH (09:57)
[2021-10-13] MEDS: POTASSIUM CHLORIDE ER 20 MEQ TAB.ER PO SCH (09:57)
[2021-10-13] MEDS: FUROSEMIDE 20 MG TAB PO SCH (09:57)
[2021-10-13] MEDS: FAMOTIDINE 20 MG TAB PO SCH (09:57)
[2021-10-13] MEDS: THIAMINE 100 MG TAB PO SCH (09:57)
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
[2021-10-13 10:31] LABS: African American GFR (CKD) 118.9 (60.0-200.0); Anion Gap 10.5 mmol/L (10.00-18.00); BUN/Creat Ratio 14.29 Ratio (12.00-20.00); Calcium 8.8 mg/dL (8.7-10.3); Carbon Dioxide 25.5 mmol/L (20.0-27.5); Non-African American GFR(CKD) 102.6 (60.0-200.0)
[2021-10-13 10:47] LABS: Basophils # (A) 0.01 X 10*3/uL (0.00-0.10); Basophils % (A) 0.3 %; Eosinophils # (A) 0.06 X 10*3/uL (0.04-0.35); HCT 42.8 % (39.6-50.0); HGB 14.3 g/dL (13.0-17.0); Lymphocytes # (A) 0.57 X 10*3/uL (0.90-5.00); Lymphocytes % (A) 19.3 %; MCH 31.3 pg (27.0-32.0); MCHC 33.4 g/dL (32.0-37.0); MCV 93.7 fL (80.0-97.0); Mean Platelet Volume 11.8 fL (9.5-12.2); Monocytes # (A) 0.35 X 10*3/uL (0.20-1.00); Monocytes % (A) 11.9 %; Neutrophils # (A) 1.96 X 10*3/uL (1.80-7.70); Neutrophils % (A) 66.5 %; Platelet Count 53 X 10*3/uL (140-440); RBC 4.57 X 10*6/uL (4.40-5.60); RDW 13.8 % (11.5-14.5); WBC 2.95 X 10*3/uL (4.50-10.00)
[2021-10-13 13:08] VITALS: BP 134/95; PULSE 89
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
== END 2021-10-13 13:30 | disposition home or self-care (01) ==
LOC: EC 15:30 → 6NMEDSUR 17:01
PROVIDERS: ADMIT Internal Medicine; ATTEND Internal Medicine
DX: F10.129 Alcohol abuse with intoxication, unspecified (principal); S01.01XA Laceration without foreign body of scalp, initial encounter; F10.139 Alcohol abuse with withdrawal, unspecified; G31.2 Degeneration of nervous system due to alcohol; D69.59 Other secondary thrombocytopenia; K70.10 Alcoholic hepatitis without ascites; R74.01 Elevation of levels of liver transaminase levels; G47.30 Sleep apnea, unspecified; M19.90 Unspecified osteoarthritis, unspecified site; Y90.8 Blood alcohol level of 240 mg/100 ml or more; F32.A Depression, unspecified; F41.9 Anxiety disorder, unspecified; F17.210 Nicotine dependence, cigarettes, uncomplicated; Z20.822 Contact with and (suspected) exposure to COVID-19; Z91.14 Patient's other noncompliance with medication regimen; H54.8 Legal blindness, as defined in USA; Z97.0 Presence of artificial eye; Z23 Encounter for immunization; Y04.2XXA Assault by strike against or bumped into by another person, initial encounter; Z71.41 Alcohol abuse counseling and surveillance of alcoholic; Z79.01 Long term (current) use of anticoagulants; Z79.51 Long term (current) use of inhaled steroids; Z88.0 Allergy status to penicillin; Z91.81 History of falling; Z86.711 Personal history of pulmonary embolism; Z86.718 Personal history of other venous thrombosis and embolism; Z87.820 Personal history of traumatic brain injury; Z86.14 Personal history of Methicillin resistant Staphylococcus aureus infection; Z98.890 Other specified postprocedural states; Z82.49 Family history of ischemic heart disease and other diseases of the circulatory system; Z80.1 Family history of malignant neoplasm of trachea, bronchus and lung; Z81.2 Family history of tobacco abuse and dependence
CPT/HCPCS: 96376 ×2; 96361; 96374; 96375; 12002; 96372; 99285; 36415; 80053; 80048; 85025 ×2; 87635; 72125; 70450; 90715; G0378 ×4; G0480; J2060 ×2; J3411; J2405; 80320

== ENCOUNTER 2021-10-20 17:47 | Inpatient (IN) | payer OTHER ==
[2021-10-20] MEDS: THIAMINE 100 MG TAB PO SCH ×2 (19:00→23:01)
[2021-10-20] MEDS ORDERED: SODIUM CHLORIDE 0.9% 1,000 ML with THIAMINE 100 MG, FOLIC ACID 1 MG IV ONE ×3 (19:01)
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
[2021-10-20 20:33] LABS: Basophils # (A) 0.1 k/uL (0-0.2); Basophils % (A) 1 %; Eosinophils % (A) 1 %; HCT 41.9 % (39.0-53.0); Lymphocytes # (A) 0.9 k/uL (1.0-4.8); Lymphocytes % (A) 24 %; MCH 32.3 pg (25.0-35.0); MCHC 33.3 g/dL (31.0-37.0); Mean Platelet Volume 7.5; Monocytes # (A) 0.4 k/uL (0-1.0); Monocytes % (A) 11 %; Neutrophils # (A) 2.2 k/uL (1.3-7.7); Neutrophils % (A) 60 %; RBC 4.33 m/uL (4.30-5.90); WBC 3.7 k/uL (3.8-10.6)
[2021-10-20 20:36] LABS: Platelet Count 161 k/uL (150-450)
[2021-10-20 20:43] LABS: INR 0.9 (<1.2); Partial Thromboplastin Time 22.4 sec (22.0-30.0)
[2021-10-20 20:50] LABS: ALT 80 U/L (4-49); AST 68 U/L (17-59); Acetaminophen <10.0 ug/mL; African American GFR (CKD) >90 (>60 ml/min/1.73 sqM); Albumin 4.1 g/dL (3.5-5.0); Alkaline Phosphatase 78 U/L (38-126); Anion Gap 16 mmol/L; Blood Urea Nitrogen 11 mg/dL (9-20); Calcium 8.4 mg/dL (8.4-10.2); Carbon Dioxide 23 mmol/L (22-30); Chloride 102 mmol/L (98-107); Glucose 93 mg/dL (74-99); Lipase 283 U/L (23-300); Non-African American GFR(CKD) >90 (>60 ml/min/1.73 sqM); Potassium 4.3 mmol/L (3.5-5.1); Salicylate <1.0 mg/dL; Sodium 141 mmol/L (137-145); Total Bilirubin 0.7 mg/dL (0.2-1.3); Total Protein 6.7 g/dL (6.3-8.2)
[2021-10-20 21:01] LABS: Alcohol 428 mg/dL
[2021-10-20 21:14] LABS: Appearance,Urine Clear (Clear); Bilirubin,Urine Negative (Negative); Blood,Urine Negative (Negative); Color,Urine Light Yellow; Glucose,Urine (UA) Negative (Negative); Ketones,Urine 1+ (Negative); Leukocyte Esterase,Urine Negative (Negative); Nitrite,Urine Negative (Negative); Protein,Urine Negative (Negative); Specific Gravity,Urine 1.009 (1.001-1.035); Urobilinogen,Urine <2.0 mg/dL (<2.0)
[2021-10-20 21:25] LABS: Cocaine Screen,Urine Not Detected (NotDetected); Phencyclidine Screen,Urine Not Detected (NotDetected); Urn Cannabinoid Scrn Not Detected (NotDetected)
[2021-10-20 21:26] LABS: Amphetamine Screen,Urine Not Detected (NotDetected); Barbiturate Screen,Urine Not Detected (NotDetected); Benzodiazepines Screen,Urine Not Detected (NotDetected); Methadone Screen, Urine Not Detected (NotDetected); Opiate Screen,Urine Not Detected (NotDetected); Oxycodone Screen, Urine Not Detected (NotDetected); Tricyclic Antidepressant,Urine Not Detected (NotDetected)
--- NOTE | 2021-10-20 21:41 | CT ---
EXAMINATION TYPE: CT brain wo con CT DLP: 1154.4 mGycm, Automated exposure control for dose reduction was used. DATE OF EXAM: 10/20/2021 9:32 PM COMPARISON: Prior CT Brain from 10/10/2021 CLINICAL INDICATION:Male, 61 years old with history of Head injury, intoxication, ams, head injury TECHNIQUE: Brain: Multiple axial CT images of the brain were obtained without IV contrast. FINDINGS: Brain: Extra-axial spaces: No abnormal extra-axial fluid collections. Ventricular system: Within normal limits Cerebral parenchyma: No acute intraparenchymal hemorrhage or mass effect. The noriega-white junction is well differentiated. Cerebellum: Unremarkable. Mass effect: No evidence of midline shift. Intracranial vasculature: unremarkable Soft tissues: Right frontal scalp skin betty are present. Calvarium/osseous structures: No depressed skull fracture. Paranasal sinuses and mastoid air cells: Clear. Visualized orbits: Orbital contents are intact. IMPRESSION: No acute intracranial process.
[2021-10-20] MEDS ORDERED: LORazepam 2 MG/ML INJ IV PRN ×2 (21:51)
[2021-10-20] MEDS ORDERED: NALOXONE 0.4 MG/ML 1 ML VIAL IV PRN (21:53)
[2021-10-20] MEDS ORDERED: ONDANSETRON 4 MG/2 ML VIAL IVP PRN (21:53)
[2021-10-21] MEDS: THIAMINE 100 MG TAB PO SCH ×2 (07:55→16:53)
[2021-10-21] MEDS: RIVAROXABAN 20 MG TAB PO SCH (12:12)
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
[2021-10-21] MEDS: LORazepam 2 MG/ML INJ IV PRN ×2 (15:05→19:58)
[2021-10-21] MEDS: FAMOTIDINE 20 MG TAB PO SCH (21:22)
[2021-10-22] MEDS: FAMOTIDINE 20 MG TAB PO SCH ×2 (08:52→21:15)
[2021-10-22] MEDS: RIVAROXABAN 20 MG TAB PO SCH (08:52)
[2021-10-22] MEDS: THIAMINE 100 MG TAB PO SCH ×2 (08:52→17:42)
[2021-10-22] MEDS: ACETAMINOPHEN TAB 325 MG TAB PO PRN ×2 (08:57→21:17)
[2021-10-22 12:06] LABS: African American GFR (CKD) >90 (>60 ml/min/1.73 sqM); Anion Gap 5 mmol/L; Blood Urea Nitrogen 10 mg/dL (9-20); Calcium 8.9 mg/dL (8.4-10.2); Carbon Dioxide 28 mmol/L (22-30); Chloride 98 mmol/L (98-107); Glucose 111 mg/dL (74-99); Non-African American GFR(CKD) >90 (>60 ml/min/1.73 sqM); Potassium 3.7 mmol/L (3.5-5.1); Sodium 131 mmol/L (137-145)
[2021-10-22 13:49] VITALS: BMI 34.4
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
[2021-10-22] MEDS: LOPERAMIDE 2 MG CAP PO SCH ×2 (17:42→21:15)
[2021-10-23] MEDS ORDERED: PANTOPRAZOLE 40 MG TABLET PO SCH (07:30)
[2021-10-23] MEDS: THIAMINE 100 MG TAB PO SCH (07:47)
[2021-10-23] MEDS: ACETAMINOPHEN TAB 325 MG TAB PO PRN (08:09)
[2021-10-23] MEDS: LOPERAMIDE 2 MG CAP PO SCH ×2 (08:16→12:08)
[2021-10-23] MEDS: RIVAROXABAN 20 MG TAB PO SCH (08:17)
[2021-10-23] MEDS: FAMOTIDINE 20 MG TAB PO SCH (08:17)
[2021-10-23 09:46] LABS: African American GFR (CKD) 118.5 (60.0-200.0); Albumin/Globulin Ratio 1.88 (1.60-3.17); Anion Gap 12.2 mmol/L (10.00-18.00); BUN/Creat Ratio 13.36 Ratio (12.00-20.00); Blood Urea Nitrogen 9.4 mg/dL (9.0-27.0); Calcium 9.2 mg/dL (8.7-10.3); Globulin 2.1 g/dL (1.6-3.3); Magnesium 1.9 mg/dL (1.5-2.4); Non-African American GFR(CKD) 102.3 (60.0-200.0); Potassium 3.9 mmol/L (3.5-5.5); Total Bilirubin 1.1 mg/dL (0.30-1.20); Total Protein 6.1 g/dL (6.2-8.2)
[2021-10-23 12:57] VITALS: BP 146/96; PULSE 72; RESP 16; TEMP 98.2
--- NOTE | 2021-10-23 13:05 | P.DS ---
Providers Date of admission: 10/22/21 08:51 Attending physician: Oneal Talbert MD Primary care physician: Per Urrutia [facility] Course: Final Diagnosis -Alcohol abuse: Counseling provided, social work on consult to provide patient with outpatient resources. 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 Hospital Course This is a pleasant 61-year-old male presents to the hospital with acute alcohol intoxication. Patient follows with Dr. Albarado in the office. Patient was recently seen in the from October 10 to October 13 for acute alcohol intoxication required a 2 day stay at that time he received sutures to his scalp. Patient was discharged home. This admission patient presents with police escort as his roommate had called the police. Patient was intoxicated and may have fallen and hit his head. Brain CT on admission shows no acute intracranial process. Past medical history significant for DVT/PE on Xarelto, liver disease, sleep apnea, obesity, chronic alcohol abuse daily 1-2 fifths of liquor, current every day smoker about a half pack per day. He has been to rehab 3 times in the past he states. Patient currently resides in an apartment with a friend he does not drive, currently states that his roommate is in rehab for alcohol. Additionally patient states that he has some chronic venous insufficiency was supposed to follow with Dr. Rome the outpatient setting and will do this on discharge. Labs on admission show white count 3.7, hemoglobin 14, platelet 161, sodium 141, potassium 4.3, BUN 11, creatinine 0.65, AST ALT elevated at 68 and 80, urinalysis negative for infection, drug toxicology negative, serum alcohol 428, COVID negative not detected. Vitals on admission 148/95, 95% room air, afebrile. Patient treated with Ativan per CIWA protocol he has not required Ativan in over 24 hours, was also given Zofran for nausea he has never taken this and we did start him on Imodium for diarrhea. Patient does state that the diarrhea is yellow and foul. 10/23/2021 Patient relates receive the chair. Does report that he was having diarrhea throughout the evening. We will check C. diff. If this is negative patient to continue with Imodium and questran on discharge. Patient appears at his baseline, he has not had any Ativan in the last 24 hours since 5 AM yesterday. There are no visible tremors, tolerating oral diet. Does have a mild headache rating it a 1-2 out of 10. He is getting Tylenol for this. No visual changes, no hallucinations, no chest pain, shortness of breath. Abdomen is soft nontender positive bowel sounds. Electrolytes have normalized, sodium 136, potassium 3.9, BUN/creatinine 0.7, liver enzymes elevated however this appears chronic for the patient. Physical therapy evaluation recommended home with home care and patient can use a cane or rolling walker for ambulation assistance. Patient is educated on importance of alcohol and smoking cessation. Patient would like to pursue rehab for alcohol abuse at this time after discharge. Vitals stable today. Please see medication reconciliation for a list of current medications. Thank you for allowing us to participate in the care of this patient. Patient Condition at Discharge: Stable Plan - Discharge Summary Discharge Rx Participant: No New Discharge Prescriptions: New chlordiazePOXIDE HCl [Librium] See Taper PO DIRECTED 6 Days #9 capsule Acetaminophen Tab [Tylenol] 650 mg PO Q6HR PRN tab PRN Reason: Mild Pain Or Fever > 100.5 Loperamide [Imodium] 2 mg PO QID PRN cap Continue Potassium Chloride ER [K-Dur 20] 20 meq PO DAILY Famotidine [Pepcid] 20 mg PO Q12HR 30 Days #60 tab Thiamine [Vitamin B-1] 100 mg PO BID-W/MEALS 30 Days #60 tab Rivaroxaban [Xarelto] 20 mg PO DAILY Changed Furosemide [Lasix] 20 mg PO DAILY #0 Discharge Medication List Rivaroxaban [Xarelto] 20 mg PO DAILY 03/24/21 [History] Potassium Chloride ER [K-Dur 20] 20 meq PO DAILY 07/19/21 [History] Famotidine [Pepcid] 20 mg PO Q12HR 30 Days #60 tab 10/13/21 [Rx] Thiamine [Vitamin B-1] 100 mg PO BID-W/MEALS 30 Days #60 tab 10/13/21 [Rx] Acetaminophen Tab [Tylenol] 650 mg PO Q6HR PRN tab 10/23/21 [Rx] Furosemide [Lasix] 20 mg PO DAILY #0 10/23/21 [Rx] Loperamide [Imodium] 2 mg PO QID PRN cap 10/23/21 [Rx] chlordiazePOXIDE HCl [Librium] See Taper PO DIRECTED 6 Days #9 capsule 10/23/21 [Rx] Follow up Appointment(s)/Referral(s): Ethan Hunt NPC [REFERRING] - 1 Week Ghada Albarado MD [Primary Care Provider] - 3 Days Abdulaziz Rome MD [STAFF PHYSICIAN] - 1 Week Patient Instructions/Handouts: Alcohol Withdrawal (DC) Discharge Disposition: HOME SELF-CARE
== END 2021-10-23 17:19 | disposition home or self-care (01) | DRG 895 ==
LOC: EC 17:47 → 5NMEDONC 21:57 → OBSVTOIN 10-22 08:51
PROVIDERS: ADMIT Internal Medicine; ATTEND Internal Medicine
PROC: HZ39ZZZ Individual Counseling for Substance Abuse Treatment, Continuing Care (ICD-10-PCS; principal; 2021-10-22)
PROC: HZ2ZZZZ Detoxification Services for Substance Abuse Treatment (ICD-10-PCS; 2021-10-22)
DX: F10.229 Alcohol dependence with intoxication, unspecified (principal); E87.1 Hypo-osmolality and hyponatremia; F10.239 Alcohol dependence with withdrawal, unspecified; Z20.822 Contact with and (suspected) exposure to COVID-19; E66.9 Obesity, unspecified; D69.6 Thrombocytopenia, unspecified; E83.42 Hypomagnesemia; F17.210 Nicotine dependence, cigarettes, uncomplicated; G47.30 Sleep apnea, unspecified; F41.9 Anxiety disorder, unspecified; I87.2 Venous insufficiency (chronic) (peripheral); Z71.41 Alcohol abuse counseling and surveillance of alcoholic; R51.9 Headache, unspecified; K70.10 Alcoholic hepatitis without ascites; M19.90 Unspecified osteoarthritis, unspecified site; Y90.8 Blood alcohol level of 240 mg/100 ml or more; S09.90XA Unspecified injury of head, initial encounter; W19.XXXA Unspecified fall, initial encounter; Y92.009 Unspecified place in unspecified non-institutional (private) residence as the place of occurrence of the external cause; Z79.01 Long term (current) use of anticoagulants; Z80.1 Family history of malignant neoplasm of trachea, bronchus and lung; Z86.711 Personal history of pulmonary embolism; Z86.718 Personal history of other venous thrombosis and embolism; Z68.34 Body mass index [BMI] 34.0-34.9, adult; Z88.0 Allergy status to penicillin; Z86.14 Personal history of Methicillin resistant Staphylococcus aureus infection
CPT/HCPCS: 36415; 70450; 80048; 80053; 80143; 80179; 80306; 80320; 81003; 82977; 83690; 83735; 85025; 85610; 85730; 87324; 87635; 94760; 99285

== ENCOUNTER 2021-11-03 05:57 | Observation (INO) | payer OTHER ==
[2021-11-03] MEDS ORDERED: LORazepam 2 MG/ML INJ IV STA (06:02)
[2021-11-03] MEDS ORDERED: SODIUM CHLORIDE 0.9% 500 ML 500 ML IV STA (06:02)
[2021-11-03] MEDS ORDERED: SODIUM CHLORIDE 0.9% 1,000 ML IV STA ×2 (06:02)
[2021-11-03] MEDS ORDERED: DILTIAZEM DRIP BOLUS FROM BAG 1 MG SOLN IV ONE (06:02)
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
[2021-11-03] MEDS: DILTIAZEM 125 MG in SODIUM CHLORIDE 0.9% 100 ML IV SCH (06:20)
[2021-11-03 06:22] LABS: Basophils % (A) 1 %; Eosinophils % (A) 1 %; HCT 46.3 % (39.0-53.0); HGB 15.3 gm/dL (13.0-17.5); Lymphocytes # (A) 1.1 k/uL (1.0-4.8); Lymphocytes % (A) 32 %; MCH 31.9 pg (25.0-35.0); MCV 96.8 fL (80.0-100.0); Mean Platelet Volume 7.2; Monocytes # (A) 0.3 k/uL (0-1.0); Monocytes % (A) 8 %; Neutrophils # (A) 1.9 k/uL (1.3-7.7); Neutrophils % (A) 55 %; Platelet Count 134 k/uL (150-450); RBC 4.78 m/uL (4.30-5.90); RDW 14.8 % (11.5-15.5); WBC 3.5 k/uL (3.8-10.6)
[2021-11-03] MEDS ORDERED: MORPHINE SULFATE 4 MG/ML SYRINGE IV PRN (06:25)
[2021-11-03] MEDS ORDERED: NALOXONE 0.4 MG/ML 1 ML VIAL IV PRN (06:25)
[2021-11-03] MEDS ORDERED: ONDANSETRON 4 MG/2 ML VIAL IVP PRN (06:25)
[2021-11-03] MEDS ORDERED: THIAMINE 100 MG/ML 2 ML VIAL IM STA (06:27)
[2021-11-03] MEDS ORDERED: LORazepam 2 MG/ML INJ IV PRN (06:27)
[2021-11-03 06:38] LABS: ALT 65 U/L (4-49); AST 75 U/L (17-59); African American GFR (CKD) >90 (>60 ml/min/1.73 sqM); Albumin 3.8 g/dL (3.5-5.0); Alkaline Phosphatase 95 U/L (38-126); Anion Gap 16 mmol/L; Blood Urea Nitrogen 5 mg/dL (9-20); Calcium 8.2 mg/dL (8.4-10.2); Carbon Dioxide 22 mmol/L (22-30); Chloride 102 mmol/L (98-107); Glucose 113 mg/dL (74-99); Magnesium 1.5 mg/dL (1.6-2.3); Non-African American GFR(CKD) >90 (>60 ml/min/1.73 sqM); Phosphorus 2.7 mg/dL (2.5-4.5); Potassium 3.5 mmol/L (3.5-5.1); Sodium 140 mmol/L (137-145); Total Bilirubin 0.8 mg/dL (0.2-1.3); Total Protein 6.8 g/dL (6.3-8.2)
[2021-11-03 06:45] LABS: INR 0.9 (<1.2); Partial Thromboplastin Time 23.8 sec (22.0-30.0); Prothrombin Time 9.9 sec (9.0-12.0)
[2021-11-03] MEDS: PANTOPRAZOLE 40 MG/10 ML VIAL IV SCH (06:53)
[2021-11-03 07:22] LABS: Alcohol 328 mg/dL
[2021-11-03] MEDS: LORazepam 2 MG/ML INJ IV PRN ×6 (07:37→22:51)
[2021-11-03] MEDS: SODIUM CHLORIDE 0.9% 1,000 ML IV SCH ×3 (08:29→22:51)
--- NOTE | 2021-11-03 08:40 | XR ---
EXAMINATION TYPE: XR chest 1V portable DATE OF EXAM: 11/03/2021 COMPARISON: 07/18/2021 HISTORY: Difficulty breathing TECHNIQUE: Single frontal view of the chest is obtained. FINDINGS: There is no focal air space opacity, pleural effusion, or pneumothorax seen. The cardiac silhouette size is enlarged. The osseous structures are intact. IMPRESSION: Cardiomegaly
[2021-11-03] MEDS ORDERED: IOPAMIDOL CONTRAST (ORAL USE) VIAL PO PRN (11:52)
--- NOTE | 2021-11-03 13:10 | HP ---
HISTORY AND PHYSICAL DATE OF SERVICE: 11/03/2021 CHIEF COMPLAINTS: Alcohol intoxication and atrial fibrillation as well as abdominal distention. HISTORY OF PRESENT ILLNESS: This 61-year-old gentleman with a past medical history of DVT, history of pulmonary embolism, sleep apnea, being followed by Dr. Albarado in the outpatient setting, was admitted with some shortness of breath, ETOH and abdominal distention. The patient was evaluated and admitted for further evaluation and treatment. The initial labs showed alcohol elevated up to . The patient is mildly confused. No chest pain. No palpitations. No fever. PAST MEDICAL HISTORY: History of DVT, history of pulmonary embolism, sleep apnea. HOME MEDICATIONS: Home medications include thiamine, Xarelto 20 mg. Doses and other medications are also reviewed. ALLERGIES: PENICILLIN. FAMILY HISTORY: History of atrial fibrillation. SOCIAL HISTORY: Alcohol abuse. Smoking. REVIEW OF SYSTEMS: Fourteen-point review of systems negative except as mentioned earlier. PHYSICAL EXAMINATION: Pulse is 99 Blood pressure 130/84, respiration 18. HEENT: Conjunctivae normal. CARDIOVASCULAR: S1, S2 muffled. RESPIRATION: Breath sounds diminished at the bases. A few scattered rhonchi. ABDOMEN: Soft. Mild diffuse distention. Mild diffuse discomfort. No guarding. No rigidity. No mass palpable. Flanks are dull. LEGS: No edema. No swelling. NERVOUS SYSTEM: Higher functions as mentioned earlier. No focal deficit. SKIN: No ulcer, rash, bleeding. JOINTS: No active deforming arthropathy. LABS: WBC 3.5. Otherwise, glucose ntd. Other labs reviewed. Alcohol noted. ASSESSMENT: 1. Acute alcohol intoxication. 2. Atrial fibrillation with fast ventricular rate. 3. Acute alcoholic hepatitis. 4. Abdominal distention for evaluation. 5. History of deep vein thrombosis and pulmonary embolism. RECOMMENDATIONS AND DISCUSSION: In this 61-year-old gentleman admitted with multiple medical issues, as mentioned earlier, at this time I recommend to continue the current medications, continue symptomatic treatment. CIWA protocol. Otherwise, CT scan of the abdomen and pelvis. Cardiology consultation for atrial fibrillation. Guarded prognosis. Further recommendations to follow. MMBLANKAL / ILENEN: [id number] / MTDD
--- NOTE | 2021-11-03 14:44 | CT ---
EXAMINATION TYPE: CT abdomen pelvis wo con DATE OF EXAM: 11/03/2021 COMPARISON: CT dated 05/21/2021 HISTORY: Ascites and cholelithiasis. CT DLP: 1153.4 mGycm Automated exposure control for dose reduction was used. TECHNIQUE: Helical acquisition of images was performed from the lung bases through the pelvis withou t IV contrast a demonstration. FINDINGS: Severe hepatic steatosis. With this limitation, no definite hepatic focal lesion identified. 6 mm hyp erdense gallbladder calculus. No evidence of acute cholecystitis. Unremarkable unenhanced CT appearan ce of the spleen, pancreas and adrenals. No definite renal lesion by this nonenhanced CT scan. Grossl y unremarkable urinary bladder, prostate and seminal vesicles. Unremarkable nondistended stomach, duodenum and small bowel. Mild wall thickening of the ascending co hans and cecum, nonspecific. No gross colonic mass however a small lesion cannot be excluded. Normal a ppendix. No suspicious lymphadenopathy or sizable ascites. Small right basal subsegmental pulmonary a telectasis. Degenerative changes at L4-5 level. No aggressive bone lesion. IMPRESSION: 1. Cholelithiasis without convincing CT evidence of acute cholecystitis. 2. No sizable ascites. 3. Severe hepatic steatosis. Other incidental findings as detailed above.
[2021-11-03] MEDS: THIAMINE 100 MG TAB PO SCH (17:09)
[2021-11-03 20:20] LABS: Appearance,Urine Clear (Clear); Bilirubin,Urine Negative (Negative); Blood,Urine Negative (Negative); Color,Urine Light Yellow; Glucose,Urine (UA) Negative (Negative); Ketones,Urine 1+ (Negative); Leukocyte Esterase,Urine Negative (Negative); Nitrite,Urine Negative (Negative); PH, Urine 7.5 (5.0-8.0); Protein,Urine Negative (Negative); Specific Gravity,Urine 1.011 (1.001-1.035); Urobilinogen,Urine <2.0 mg/dL (<2.0)
[2021-11-03] MEDS ORDERED: POTASSIUM CHLORIDE ER 20 MEQ TAB.ER PO STA (22:10)
[2021-11-04] MEDS: LORazepam 2 MG/ML INJ IV PRN ×7 (00:57→20:18)
[2021-11-04] MEDS: DILTIAZEM 125 MG in SODIUM CHLORIDE 0.9% 100 ML IV SCH (06:45)
[2021-11-04] MEDS: THIAMINE 100 MG TAB PO SCH ×2 (07:08→16:23)
[2021-11-04] MEDS: SODIUM CHLORIDE 0.9% 1,000 ML IV SCH ×2 (07:08→12:07)
[2021-11-04 08:18] LABS: ALT 54 U/L (4-49); AST 57 U/L (17-59); African American GFR (CKD) >90 (>60 ml/min/1.73 sqM); Albumin 3.2 g/dL (3.5-5.0); Alkaline Phosphatase 69 U/L (38-126); Anion Gap 8 mmol/L; Blood Urea Nitrogen 7 mg/dL (9-20); Calcium 7.8 mg/dL (8.4-10.2); Carbon Dioxide 22 mmol/L (22-30); Chloride 102 mmol/L (98-107); Glucose 78 mg/dL (74-99); Magnesium 1.1 mg/dL (1.6-2.3); Non-African American GFR(CKD) >90 (>60 ml/min/1.73 sqM); Phosphorus 2.3 mg/dL (2.5-4.5); Potassium 3.8 mmol/L (3.5-5.1); Sodium 132 mmol/L (137-145); Total Bilirubin 1.5 mg/dL (0.2-1.3); Total Protein 5.9 g/dL (6.3-8.2)
[2021-11-04 08:26] LABS: Basophils % (A) 1 %; Eosinophils % (A) 1 %; HGB 13.5 gm/dL (13.0-17.5); Lymphocytes # (A) 0.8 k/uL (1.0-4.8); Lymphocytes % (A) 30 %; MCH 32.8 pg (25.0-35.0); MCHC 33.7 g/dL (31.0-37.0); MCV 97.5 fL (80.0-100.0); Mean Platelet Volume 8.1; Monocytes # (A) 0.2 k/uL (0-1.0); Monocytes % (A) 7 %; Neutrophils # (A) 1.5 k/uL (1.3-7.7); Neutrophils % (A) 59 %; Platelet Count 108 k/uL (150-450); RDW 14.7 % (11.5-15.5); WBC 2.5 k/uL (3.8-10.6)
[2021-11-04] MEDS: FUROSEMIDE 20 MG TAB PO SCH (10:21)
[2021-11-04] MEDS: METOPROLOL TARTRATE 25 MG TAB PO SCH ×2 (10:21→20:17)
[2021-11-04] MEDS: POTASSIUM CHLORIDE ER 20 MEQ TAB.ER PO SCH ×2 (10:21→20:17)
[2021-11-04] MEDS: RIVAROXABAN 20 MG TAB PO SCH (10:21)
[2021-11-04] MEDS: MAGNESIUM OXIDE 400 MG TAB PO SCH ×3 (10:21→20:17)
[2021-11-04] MEDS: FAMOTIDINE 20 MG TAB PO SCH ×2 (10:21→20:17)
[2021-11-04] MEDS: PANTOPRAZOLE 40 MG/10 ML VIAL IV SCH (10:27)
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
--- NOTE | 2021-11-04 11:00 | ECHOF ---
Referral Reason:LV function MEASUREMENTS -------- HEIGHT: 190.5 cm WEIGHT: 118.8 kg BP: 130/85 RVIDd: 3.5 cm (< 3.3) IVSd: 1.4 cm (0.6 - 1.1) LVIDd: 5.1 cm (3.9 - 5.3) LVPWd: 1.3 cm (0.6 - 1.1) IVSs: 1.9 cm LVIDs: 3.4 cm LVPWs: 1.9 cm LA Diam: 3.4 cm (2.7 - 3.8) LAESV Index (A-L): 27.96 ml/m Ao Diam: 3.8 cm (2.0 - 3.7) AV Cusp: 2.2 cm (1.5 - 2.6) MV EXCURSION: 22.560 mm (> 18.000) MV EF SLOPE: 122 mm/s (70 - 150) EPSS: 0.2 cm MV E George: 0.96 m/s MV DecT: 199 ms MV A George: 0.80 m/s MV E/A Ratio: 1.21 AR PHT: 1042 ms RAP: 5.00 mmHg RVSP: 32.51 mmHg FINDINGS -------- Sinus rhythm. This was a technically adequate study. The left ventricular size is normal. There is moderate concentric left ventricular hypertrophy. O verall left ventricular systolic function is normal with, an EF between 55 - 60 %. The right ventricle is mildly enlarged. Normal LA size by volume 22+/-6 ml/m2. The right atrium is normal in size. Interatrial and interventricular septum intact. The aortic valve is trileaflet and appears structurally normal. There is mild aortic regurgitation. The mitral valve is normal. Mild mitral regurgitation is present. The tricuspid valve appears structurally normal. Mild tricuspid regurgitation present. Right vent ricular systolic pressure is normal at < 35 mmHg. There is no pulmonic regurgitation present. The aortic root is mildy dilated. IVC Not well visulized. There is no pericardial effusion. CONCLUSIONS -------- 1. There is moderate concentric left ventricular hypertrophy. 2. Overall left ventricular systolic function is normal with, an EF between 55 - 60 %. 3. The right ventricle is mildly enlarged. 4. There is mild aortic regurgitation. 5. Mild mitral regurgitation is present. 6. Mild tricuspid regurgitation present. 7. The aortic root is mildy dilated. 8. There is no pericardial effusion. DECKHAND ENGINEER: Lizet Martinez RDCS
[2021-11-04] MEDS: MAGNESIUM SULFATE-D5W PMX 1 GM in DEXTROSE/WATER 1 100ML.BAG IVPB SCH ×2 (12:07→13:11)
--- NOTE | 2021-11-04 12:39 | PN ---
PROGRESS NOTE DATE OF SERVICE: 11/04/2021 This 61-year-old gentleman admitted with alcohol intoxication and atrial fibrillation is being closely monitored. No chest pain. No palpitations. Patient is still on CIWA protocol. Cardiology is following the patient closely. PHYSICAL EXAMINATION: Pulse is 62, blood pressure 134/80, respirations 18. CHEST: Clear to auscultation. CARDIOVASCULAR: S1, S2 regular. ABDOMEN: Soft, nontender. NERVOUS SYSTEM: Tremors. LABS: Reviewed. ASSESSMENT: 1. Acute alcohol intoxication. 2. Atrial fibrillation with fast ventricular rate. 3. Acute alcoholic hepatitis. 4. History of deep vein thrombosis and pulmonary embolism. RECOMMENDATIONS AND DISCUSSION: I recommend to continue current medications, continue with the monitoring, symptomatic treatment. CIWA protocol. Continue with the beta blockers. Further recommendations to follow. MMODL / IJN: [id number] /
[2021-11-05] MEDS: SODIUM CHLORIDE 0.9% 1,000 ML IV SCH ×2 (02:31→03:27)
[2021-11-05] MEDS: LORazepam 2 MG/ML INJ IV PRN ×2 (03:27→12:19)
[2021-11-05] MEDS: PANTOPRAZOLE 40 MG TABLET PO SCH (06:13)
[2021-11-05] MEDS: THIAMINE 100 MG TAB PO SCH ×2 (06:13→16:57)
[2021-11-05] MEDS: METOPROLOL TARTRATE 25 MG TAB PO SCH ×2 (10:16→20:23)
[2021-11-05] MEDS: POTASSIUM CHLORIDE ER 20 MEQ TAB.ER PO SCH ×2 (10:16→20:23)
[2021-11-05] MEDS: FUROSEMIDE 20 MG TAB PO SCH (10:16)
[2021-11-05] MEDS: FAMOTIDINE 20 MG TAB PO SCH ×2 (10:16→20:23)
[2021-11-05] MEDS: MAGNESIUM OXIDE 400 MG TAB PO SCH ×3 (10:16→20:23)
[2021-11-05] MEDS: RIVAROXABAN 20 MG TAB PO SCH (10:17)
[2021-11-05 11:19] LABS: African American GFR (CKD) >90 (>60 ml/min/1.73 sqM); Anion Gap 6 mmol/L; Blood Urea Nitrogen 7 mg/dL (9-20); Calcium 8.3 mg/dL (8.4-10.2); Carbon Dioxide 26 mmol/L (22-30); Chloride 101 mmol/L (98-107); Glucose 120 mg/dL (74-99); Magnesium 1.6 mg/dL (1.6-2.3); Non-African American GFR(CKD) >90 (>60 ml/min/1.73 sqM); Potassium 3.6 mmol/L (3.5-5.1); Sodium 133 mmol/L (137-145)
[2021-11-05 11:24] LABS: Basophils % (A) 0 %; Eosinophils # (A) 0.1 k/uL (0-0.7); Eosinophils % (A) 2 %; HCT 44.1 % (39.0-53.0); HGB 14.7 gm/dL (13.0-17.5); Lymphocytes # (A) 0.8 k/uL (1.0-4.8); Lymphocytes % (A) 31 %; MCH 32.6 pg (25.0-35.0); MCHC 33.2 g/dL (31.0-37.0); MCV 98.2 fL (80.0-100.0); Mean Platelet Volume 8.7; Monocytes # (A) 0.2 k/uL (0-1.0); Monocytes % (A) 7 %; Neutrophils # (A) 1.5 k/uL (1.3-7.7); Neutrophils % (A) 56 %; RBC 4.49 m/uL (4.30-5.90); RDW 14.7 % (11.5-15.5); WBC 2.6 k/uL (3.8-10.6)
--- NOTE | 2021-11-05 11:48 | P.PN ---
Subjective Progress Note Date: 11/05/21 HISTORY OF PRESENT ILLNESS: This is a 61-year-old male with a past medical history significant for PE/DVT on Xarelto, nicotine dependence, and alcohol abuse. 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 We have been asked to see the patient in consultation for atrial fibrillation. Patient examined at the bedside. Patient states yesterday he began having shortness of breath which prompted him to come to the emergency room. He also reports having palpitations. Patient was found to be in A. fib with RVR. Patient denies a history of atrial fibrillation. Patient was started on a Cardizem drip with subsequent conversion to sinus mechanism. Patient is maintaining sinus mechanism this morning. He denies chest pain or pressure. He denies shortness of breath. The patient does report a history of alcohol abuse and states he drinks 2/5 per day. He also reports smoking half a pack of cigarettes per day. He denies any drug use including marijuana. The patient states he is prescribed Xarelto for a history of DVT/PE, however he states he does not always take this and states "it depends on my mental state if I take my medications" * EKG reveals atrial fibrillation with RVR * Chest xray cardiomegaly * Laboratory data: WBC 2.5. Hemoglobin 13.5. Platelet count 108. Sodium 132. Potassium 3.8. BUN 7. Creatinine 0.56. Magnesium 1.1. Serum alcohol 328. * Current home cardiac medications include Lasix 20 mg daily and Xarelto 20 mg daily * Most recent echocardiogram obtained in May 2021 revealed ejection fraction 55-60%, trace aortic regurgitation, trace mitral regurgitation, and trace tricuspid regurgitation 11/05/2021 Patient examined this morning at the bedside. Patient denies chest pain or pressure. He denies shortness of breath at rest. Telemetry reveals sinus mechanism. Echocardiogram completed revealed ejection fraction 55-60%, mild aortic regurgitation, bile white regurgitation, and mild tricuspid regurgitation PHYSICAL EXAM: VITAL SIGNS: Reviewed. GENERAL: Well-developed in no acute distress. HEENT: Head is normocephalic. Pupils are equal, round. Sclerae anicteric. Mucous membranes of the mouth are moist. Neck supple. No JVD or thyromegaly LUNGS: Respirations even and unlabored. Lungs essentially clear to auscultation bilaterally. HEART: Regular rate and rhythm. S1 and S2 heard. ABDOMEN: Soft. Nondistended. Nontender. EXTREMITIES: Normal range of motion. No clubbing or cyanosis. Peripheral pulses intact. No lower extremity edema NEUROLOGIC: Awake and alert. Oriented x 3. ASSESSMENT: New onset paroxysmal atrial fibrillation with RVR Acute alcohol intoxication History of DVT/PE on Xarelto Medication noncompliance Nicotine dependence Alcohol abuse Hypomagnesemia PLAN: Continue current cardiac medications Smoking cessation recommended Abstinence from alcohol recommended No further inpatient recommendations from a cardiac standpoint The patient may be discharged home from a cardiac perspective We will sign off. Please reconsult if needed. Nurse practitioner note has been reviewed by physician. Signing provider agrees with the documented findings, assessment, and plan of care. Objective - Vital Signs Vital signs: Vital Signs Temp 97.7 F 11/05/21 08:00 Pulse 70 11/05/21 08:00 Resp 18 11/05/21 08:00 BP 143/93 11/05/21 08:00 Pulse Ox 96 11/05/21 08:00 Intake & Output 11/04/21 11/05/21 11/05/21 18:59 06:59 18:59 Intake Total 1290 1220 Output Total 2425 1500 400 Balance -1135 -280 -400 Intake: Intake, IV Titration 900 Amount Sodium Chloride 0.9% 1, 900 000 ml @ 75 mls/hr IV . [id number] [facility] Rx#:[id number] Oral 1290 320 Output: Urine 2425 1500 400 Other: Voiding Method Toilet Urinal # Voids 1 # Bowel Movements 1 1 - Labs CBC & Chem 7: 11/05/21 10:36 11/05/21 10:36 Labs: Abnormal Lab Results - Last 24 Hours (Table) 11/05/21 11/05/21 Range/Units 10:36 10:36 WBC 2.6 L (3.8-10.6) k/uL Sodium 133 L (137-145) mmol/L BUN 7 L (9-20) mg/dL Glucose 120 H (74-99) mg/dL Calcium 8.3 L (8.4-10.2) mg/dL
[2021-11-05 13:15] LABS: Platelet Count 99 k/uL (150-450); RBC Morphology Normal
--- NOTE | 2021-11-05 15:07 | P.PN ---
Subjective Progress Note Date: 11/05/21 This is a pleasant 61 male admitted to the hospital for new onset atrial fibrillation, has since converted to sinus rhythm. Echocardiogram shows an EF of 55-60%. He was started on metoprolol 25 mg twice daily cardiology, history of DVT PE resumed on xarelto. Patient did have a history of brain bleed in 2019 s/p fall, he was transferred to [facility] from [facility] and has never followed up with neurology since. Does admit to chronic headache today it is rated a 4 out of 10 in the frontal lobe since. There are no visual changes, does report dizziness and lightheadedness especially with ambulation. He has continued to have multiple episodes of diarrhea, we'll check a C. diff, and ortho's. On CILA protocol for daily alcohol abuse, received 2 mg in the last 24 hours. Labs are pending from today. Blood pressure 143/93, 96% room air, afebrile, heart rate 70 sinus rhythm. Constitutional: Denied any fatigue denied any fever. Cardio vascular: denied any chest pain, palpitations Gastrointestinal denied any vomiting, reports nausea, diarrhea Pulmonary: Denied any cough, reports shortness of breath with ambulation Neurologic denied any new focal deficits All inpatient medications were reviewed and appropriate changes in these medications as dictated in the interval history and assessment and plan. PHYSICAL EXAMINATION: GENERAL: The patient is alert and oriented x3, not in any acute distress. Well developed, well nourished. HEENT: Pupils are round and equally reacting to light. EOMI. No scleral icterus. No conjunctival pallor. Normocephalic, atraumatic. No pharyngeal erythema. No thyromegaly. CARDIOVASCULAR: S1 and S2 present. No murmurs, rubs, or gallops. PULMONARY: Chest is clear to auscultation, no wheezing or crackles. ABDOMEN: Soft, nontender, nondistended, normoactive bowel sounds. No palpable organomegaly. MUSCULOSKELETAL: No joint swelling or deformity. EXTREMITIES: No cyanosis, clubbing, or pedal edema. NEUROLOGICAL: Gross neurological examination did not reveal any focal deficits. SKIN: No rashes. Assessment and plan Assessment 1. Acute alcohol intoxication on CIWA protocol 2. New-onset atrial fibrillation with rapid ventricular rate, since converted to sinus rhythm 3. Acute Alcoholic Hepatitis, monitor trends 4. History of DVT/PE - on xarelto 5. Medication non-compliance 6. Acute diarrhea, secondary to alcohol withdrawal 7. Hypomagnesemia secondary to diarrhea 8. Chronic daily alcohol abuse 9. Nicotine dependence 10. Obesity 11. History of sleep apnea DVT Prophylaxis: Xarelto GI Prophylaxis: Protonix FULL CODE Plan Cont CIWA Protocol Check CDif, stool cultures; antidiarrhea medication if negative Cardiology consultation PT/OT Replace electrolytes as needed Prognosis guarded Objective - Vital Signs Vital signs: Vital Signs Temp 97.7 F 11/05/21 08:00 Pulse 70 11/05/21 08:00 Resp 18 11/05/21 08:00 BP 143/93 11/05/21 08:00 Pulse Ox 96 11/05/21 08:00 Intake & Output 11/04/21 11/05/21 11/05/21 18:59 06:59 18:59 Intake Total 1290 1220 Output Total 2425 1500 400 Balance -1135 -280 -400 Intake: Intake, IV Titration 900 Amount Sodium Chloride 0.9% 1, 900 000 ml @ 75 mls/hr IV . [id number] [facility] Rx#:[id number] Oral 1290 320 Output: Urine 2425 1500 400 Other: Voiding Method Toilet Urinal # Voids 1 # Bowel Movements 1 1 - Labs CBC & Chem 7: 11/05/21 10:36 11/05/21 10:36 Assessment and Plan Time with Patient: Greater than 30
[2021-11-05] MEDS: MAGNESIUM SULFATE-D5W PMX 1 GM in DEXTROSE/WATER 1 100ML.BAG IVPB SCH ×2 (16:57→18:13)
[2021-11-05] MEDS: ACETAMINOPHEN TAB 325 MG TAB PO PRN (20:23)
[2021-11-06] MEDS: SODIUM CHLORIDE 0.9% 1,000 ML IV SCH ×2 (04:53→14:11)
[2021-11-06] MEDS: PANTOPRAZOLE 40 MG TABLET PO SCH (06:15)
[2021-11-06] MEDS: THIAMINE 100 MG TAB PO SCH ×2 (06:15→16:37)
[2021-11-06 07:40] LABS: African American GFR (CKD) >90 (>60 ml/min/1.73 sqM); Anion Gap 7 mmol/L; Blood Urea Nitrogen 7 mg/dL (9-20); Calcium 9.1 mg/dL (8.4-10.2); Carbon Dioxide 23 mmol/L (22-30); Chloride 104 mmol/L (98-107); Glucose 110 mg/dL (74-99); Magnesium 2.1 mg/dL (1.6-2.3); Non-African American GFR(CKD) >90 (>60 ml/min/1.73 sqM); Potassium 4.4 mmol/L (3.5-5.1); Sodium 134 mmol/L (137-145)
[2021-11-06] MEDS: RIVAROXABAN 20 MG TAB PO SCH (08:21)
[2021-11-06] MEDS: POTASSIUM CHLORIDE ER 20 MEQ TAB.ER PO SCH ×2 (08:21→20:50)
[2021-11-06] MEDS: FUROSEMIDE 20 MG TAB PO SCH (08:21)
[2021-11-06] MEDS: MAGNESIUM OXIDE 400 MG TAB PO SCH ×3 (08:21→20:50)
[2021-11-06] MEDS: FAMOTIDINE 20 MG TAB PO SCH ×2 (08:21→20:50)
[2021-11-06] MEDS: METOPROLOL TARTRATE 25 MG TAB PO SCH ×2 (08:21→20:50)
[2021-11-06] MEDS: ACETAMINOPHEN TAB 325 MG TAB PO PRN (12:19)
[2021-11-06] MEDS: LOPERAMIDE 2 MG CAP PO SCH ×3 (14:10→20:50)
--- NOTE | 2021-11-06 14:57 | P.PN ---
Subjective Progress Note Date: 11/06/21 This is a pleasant 61 male admitted to the hospital for new onset atrial fibrillation, has since converted to sinus rhythm. Echocardiogram shows an EF of 55-60%. He was started on metoprolol 25 mg twice daily cardiology, history of DVT PE resumed on xarelto. Patient did have a history of brain bleed in 2019 s/p fall, he was transferred to [facility] from [facility] and has never followed up with neurology since. Does admit to chronic headache today it is rated a 4 out of 10 in the frontal lobe since. There are no visual changes, does report dizziness and lightheadedness especially with ambulation. He has continued to have multiple episodes of diarrhea, we'll check a C. diff, and ortho's. On [facility] protocol for daily alcohol abuse, received 2 mg in the last 24 hours. Labs are pending from today. Blood pressure 143/93, 96% room air, afebrile, heart rate 70 sinus rhythm. 11/06/2021 Patient cleared by cardiology for discharge. Continues to have diarrhea 6 times today and 10 times yesterday, Patient states it is yellow with a foul odor. C. diff is negative. Patient never had a routine colonoscopy would recommend he follows up with GI outpatient for this. C.Dif negative, started patient on imodium and questran. There is mild wall thickening of the ascending colon and cecum, nonspecific found on abd/pelvis CT on admission. Labs today show sodium 134, BUN 7, creatinine 0.60, glucose 110 magnesium 2.1. Continue IV fluids we will add IV Rocephin and Flagyl and consult GI services for the diarrhea. ROS Constitutional: Denied any fatigue denied any fever. Cardio vascular: denied any chest pain, palpitations Gastrointestinal denied any vomiting, reports nausea, diarrhea multiple episodes, yellow and foul odor per patient. Pulmonary: Denied any cough, reports shortness of breath with ambulation Neurologic denied any new focal deficits All inpatient medications were reviewed and appropriate changes in these medications as dictated in the interval history and assessment and plan. PHYSICAL EXAMINATION: GENERAL: The patient is alert and oriented x3, not in any acute distress. Well developed, well nourished. HEENT: Pupils are round and equally reacting to light. EOMI. No scleral icterus. No conjunctival pallor. Normocephalic, atraumatic. No pharyngeal erythema. No thyromegaly. CARDIOVASCULAR: S1 and S2 present. No murmurs, rubs, or gallops. PULMONARY: Chest is clear to auscultation, no wheezing or crackles. ABDOMEN: Soft, LLQ tenderness mild to palpation, nondistended, normoactive bowel sounds. No palpable organomegaly. MUSCULOSKELETAL: No joint swelling or deformity. EXTREMITIES: No cyanosis, clubbing, or pedal edema. NEUROLOGICAL: Gross neurological examination did not reveal any focal deficits. SKIN: No rashes. Assessment and plan Assessment -Acute alcohol intoxication on CIWA protocol, stable currently on active withdrawals -New-onset atrial fibrillation with rapid ventricular rate, since converted to sinus rhythm -Acute diarrhea, possibly some mild colitis -Hypomagnesemia secondary to diarrhea -Alcoholic Hepatitis, monitor trends -Hepatic steatosis -History of DVT/PE - on xarelto -Medication non-compliance -Chronic daily alcohol abuse -Nicotine dependence -Obesity -History of sleep apnea DVT Prophylaxis: Xarelto GI Prophylaxis: Protonix FULL CODE Plan Cont IV fluids Imodium/questran Antibiotics Cont CIMN Protocol PT/OT Replace electrolytes as needed GI consult Prognosis guarded Objective - Vital Signs Vital signs: Vital Signs Temp 97.8 F 11/06/21 12:29 Pulse 90 11/06/21 12:29 Resp 18 11/06/21 12:29 BP 138/71 11/06/21 12:29 Pulse Ox 98 11/06/21 12:29 Intake & Output 11/05/21 11/06/21 11/06/21 18:59 06:59 18:59 Intake Total 240 720 240 Output Total 1900 750 Balance -1660 -30 240 Intake: Oral 240 720 240 Output: Urine 1900 750 Other: Voiding Method Toilet Urinal # Voids 1 # Bowel Movements 1 1 - Labs CBC & Chem 7: 11/05/21 10:36 11/06/21 06:57 Labs: Abnormal Lab Results - Last 24 Hours (Table) 11/06/21 Range/Units 06:57 Sodium 134 L (137-145) mmol/L BUN 7 L (9-20) mg/dL Creatinine 0.60 L (0.66-1.25) mg/dL Glucose 110 H (74-99) mg/dL Assessment and Plan Time with Patient: Greater than 30
[2021-11-06] MEDS: CHOLESTYRAMINE (WITH SUGAR) 4 GM PACKET PO SCH (16:37)
[2021-11-06] MEDS: metroNIDAZOLE 500 MG TAB PO SCH ×2 (16:37→20:50)
[2021-11-07 04:35] VITALS: TEMP 98.5
[2021-11-07] MEDS: SODIUM CHLORIDE 0.9% 1,000 ML IV SCH ×2 (05:46→08:38)
[2021-11-07] MEDS: PANTOPRAZOLE 40 MG TABLET PO SCH (06:03)
[2021-11-07] MEDS: THIAMINE 100 MG TAB PO SCH (06:03)
[2021-11-07] MEDS: MAGNESIUM OXIDE 400 MG TAB PO SCH (08:35)
[2021-11-07] MEDS: CHOLESTYRAMINE (WITH SUGAR) 4 GM PACKET PO SCH (08:35)
[2021-11-07] MEDS: POTASSIUM CHLORIDE ER 20 MEQ TAB.ER PO SCH (08:36)
[2021-11-07] MEDS: FAMOTIDINE 20 MG TAB PO SCH (08:36)
[2021-11-07] MEDS: METOPROLOL TARTRATE 25 MG TAB PO SCH (08:36)
[2021-11-07] MEDS: RIVAROXABAN 20 MG TAB PO SCH (08:36)
[2021-11-07] MEDS: metroNIDAZOLE 500 MG TAB PO SCH (08:36)
[2021-11-07] MEDS: LOPERAMIDE 2 MG CAP PO SCH ×2 (08:36→12:41)
[2021-11-07 08:41] VITALS: RESP 16
[2021-11-07 09:09] LABS: African American GFR (CKD) >90 (>60 ml/min/1.73 sqM); Anion Gap 5 mmol/L; Blood Urea Nitrogen 10 mg/dL (9-20); Calcium 8.8 mg/dL (8.4-10.2); Carbon Dioxide 25 mmol/L (22-30); Chloride 105 mmol/L (98-107); Glucose 114 mg/dL (74-99); Non-African American GFR(CKD) >90 (>60 ml/min/1.73 sqM); Potassium 4.8 mmol/L (3.5-5.1); Sodium 135 mmol/L (137-145)
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
[2021-11-07 14:13] VITALS: BP 129/90; PULSE 65
--- NOTE | 2021-11-07 15:02 | P.DS ---
Providers Date of admission: 11/03/21 08:31 Attending physician: Yee Calix Consults: 11/06/21 15:40 Consult Physician Routine Consulting Provider: Bisi Palumbo Consult Reason/Comments: ongoing diarrhea Do you want consulting provider notified?: Yes Primary care physician: Per [facility] Hospital Course: Final Diagnosis -Acute alcohol intoxication on CIWA protocol, stable currently no active withdra wals, has not had ativan in 2 days. -New-onset atrial fibrillation with rapid ventricular rate, since converted to sinus rhythm -Acute diarrhea, possibly some mild colitis -Hypomagnesemia secondary to diarrhea, resolved -Alcoholic Hepatitis, monitor trends -Hepatic steatosis -History of DVT/PE - on xarelto -Medication non-compliance -Chronic daily alcohol abuse -Nicotine dependence -Obesity -History of sleep apnea Discharge Disposition Patient cleared medically for discharge. Will need to follow up in the office with primary care, Dr Palumbo for GI services, Dr Cho, and will need to see Dr Rome for vascular services from a previous work-up. Repeat BMP in 2-3 days to follow up on sodium level. Recommended to hold lasix for at least 2 days for diarrhea to continue to improve. Hospital Course this is a pleasant 61 year old male who presents to the hospital with complaints of shortness of breath ongoing as well as heart palpitations. He was diagnosed with new-onset atrial fibrillation and was seen in consultation by cardiology services he has since converted to normal sinus rhythm and was started on metoprolol 25 mg twice a day. Patient was previously on Xarelto for a history of DVT PE which has been resumed. Echocardiogram shows an EF of 55- 60%. Patient does complain of this chronic ongoing diarrhea yellow in color with a foul odor with multiple episodes daily denies any blood in the stool. Patient never had a screening colonoscopy. Patient has a history of brain bleed in 2020 status post fall where he was evaluated at [facility] and has not follow-up with neurology since. He has complains of ongoing headache rates it about a 3 out of 10. There is no visual changes pupils are equal reactive no focal neurological deficits. Patient had a repeat brain CT his previous admission less than one month ago which was negative for any acute changes or hemorrhage. We'll recommend the patient does see a neurologist outpatient. Also has a history of some peripheral vascular disease questionable and states that he is supposed to see Dr. Rome in the outpatient setting for further workup. Patient does have issues with community resources as he does not drive and does not have reliable transportation to get to his follow-up appointments. We did give him community resource information for discharge to help with transportation. Patient has a strong family history significant for atrial fibrillation. Patient is a chronic daily drinker with multiple admissions for acute alcohol withdrawal he was initially treated with [facility] protocol receiving IV Ativan however has not needed to have any in the last 2-3 days and there are no signs of acute withdrawal. Alcohol level on admission was 328, Covid not detected, sodium 140, potassium 3.5, BUN 5, creatinine 0.66, glucose 113, magnesium 1.5, AST ALT mildly elevated, troponin negative, BNP 863, WBC 3.5. Platelets on the lower side at 134. Abdominal pelvis CT shows cholelithiasis without convincing CT evidence of acute cholecystitis, no sizable ascites, severe hepatic state ptosis, other incidental findings include mild wall thickening of the ascending colon and cecum, nonspecific, no gross colonic mass however a small lesion cannot be excluded. C. diff and cultures were negative for the diarrhea, patient was started on questran and Imodium as well as oral Flagyl and states mild improvement in the diarrhea. Patient feels this could possibly be related to his chronic alcohol use. He states that he does not remember a time when he had normal bowel movements. He is also seen in consult b y GI services for the ongoing diarrhea. Recommending to follow-up in the office for possible colonoscopy and further evaluation as his diarrhea is showing improvement on current medications. 11/07/2021 Patient continues to complain of diarrhea, although slowing down. He does have some LLQ abdominal tenderness to palpation, that has improved from yesterday. Started on Flagyl, continues on questran and Imodium. Otherwise no acute complaints, no signs of active withdrawal. Labs today show sodium 135, potassium 4.8, BUN 10, creatinine 0.73, glucose 114. Patient afebrile, heart rate 66, blood pressure 129/88, 97% room air. Evaluated by GI services today he was cleared for discharge to follow-up in the office. Lungs are clear to auscultation, S1-S2 auscultated, abdomen is soft, denies nausea, vomiting. Denies chest pain, chest pressure, palpitations, neurological exam is negative. No signs of acute alcohol withdrawal in the last 2 days. Patient stable for discharge home from physical therapy services. Patient recommended to hold Lasix for 2 days and repeat sodium level and to continue on current medications for diarrhea. Educated on the importance of alcohol cessation. Please see medication reconciliation for a list of current medications. Thank you for allowing us to participate in the care of this patient. Patient Condition at Discharge: Stable Plan - Discharge Summary Discharge Rx Participant: No New Discharge Prescriptions: New Metoprolol Tartrate [Lopressor] 25 mg PO BID #60 tab Magnesium Oxide [Mag-Ox] 400 mg PO DAILY #30 tab metroNIDAZOLE [Flagyl] 500 mg PO TID 5 Days #15 tab Loperamide [Imodium] 2 mg PO QID PRN 7 Days #28 cap PRN Reason: Diarrhea Cholestyramine (with Sugar) [Questran Packet] 4 gm PO BID@1000,1800 7 Days #14 packet Continue Acetaminophen Tab [Tylenol] 650 mg PO Q6HR PRN tab PRN Reason: Mild Pain Or Fever > 100.5 Rivaroxaban [Xarelto] 20 mg PO DAILY Thiamine [Vitamin B-1] 100 mg PO BID-W/MEALS #60 tab Changed Famotidine [Pepcid] 20 mg PO BID 30 Days #60 tab Discontinued Potassium Chloride ER [K-Dur 20] 20 meq PO DAILY Furosemide [Lasix] 20 mg PO DAILY #0 Discharge Medication List Rivaroxaban [Xarelto] 20 mg PO DAILY 03/24/21 [History] Acetaminophen Tab [Tylenol] 650 mg PO Q6HR PRN tab 10/23/21 [Rx] Cholestyramine (with Sugar) [Questran Packet] 4 gm PO BID@1000,1800 7 Days #14 packet 11/07/21 [Rx] Famotidine [Pepcid] 20 mg PO BID 30 Days #60 tab 11/07/21 [Rx] Loperamide [Imodium] 2 mg PO QID PRN 7 Days #28 cap 11/07/21 [Rx] Magnesium Oxide [Mag-Ox] 400 mg PO DAILY #30 tab 11/07/21 [Rx] Metoprolol Tartrate [Lopressor] 25 mg PO BID #60 tab 11/07/21 [Rx] Thiamine [Vitamin B-1] 100 mg PO BID-W/MEALS #60 tab 11/07/21 [Rx] metroNIDAZOLE [Flagyl] 500 mg PO TID 5 Days #15 tab 11/07/21 [Rx] Follow up Appointment(s)/Referral(s): Ashwin Cho MD [STAFF PHYSICIAN] - 1 Week Ghada Albarado MD [Primary Care Provider] - 1-2 days Bisi Palumbo MD [STAFF PHYSICIAN] - 1 Week (Pt needs colonoscopy ) Ambulatory/Diagnostic Orders: Basic Metabolic Panel [LAB.AMB] Time Frame: 3 Days, Location: None Selected Patient Instructions/Handouts: Heart Healthy Diet (DC) Activity/Diet/Wound Care/Special Instructions: Hold lasix can resume if diarrhea continues to improve in the next 2 days. Follow heart healthy diet, limit sodium intake. Discharge/Stand Alone Forms: Who Do I Call?, Community Resources Discharge Disposition: HOME SELF-CARE
== END 2021-11-07 16:22 | disposition home or self-care (01) ==
LOC: EC 05:57 → 6NMEDSUR 06:25 → OBSVTOIN 08:31 → INTOOBSV 08:31 → 3SCARD 08:35 → UNDODISIN 11-07 16:22
PROVIDERS: ADMIT Hospitalist; ATTEND Hospitalist
DX: I48.0 Paroxysmal atrial fibrillation (principal); F10.129 Alcohol abuse with intoxication, unspecified; E83.42 Hypomagnesemia; K52.9 Noninfective gastroenteritis and colitis, unspecified; K70.10 Alcoholic hepatitis without ascites; K76.0 Fatty (change of) liver, not elsewhere classified; E66.9 Obesity, unspecified; Z68.32 Body mass index [BMI] 32.0-32.9, adult; G47.30 Sleep apnea, unspecified; R51.9 Headache, unspecified; R74.01 Elevation of levels of liver transaminase levels; F41.9 Anxiety disorder, unspecified; F32.A Depression, unspecified; K80.20 Calculus of gallbladder without cholecystitis without obstruction; R05.9 Cough, unspecified; M19.90 Unspecified osteoarthritis, unspecified site; I08.3 Combined rheumatic disorders of mitral, aortic and tricuspid valves; F17.210 Nicotine dependence, cigarettes, uncomplicated; Z91.81 History of falling; Z87.820 Personal history of traumatic brain injury; Z86.718 Personal history of other venous thrombosis and embolism; Z86.711 Personal history of pulmonary embolism; Z91.14 Patient's other noncompliance with medication regimen; Z91.19 Patient's noncompliance with other medical treatment and regimen; Z20.822 Contact with and (suspected) exposure to COVID-19; Z71.6 Tobacco abuse counseling; Z71.41 Alcohol abuse counseling and surveillance of alcoholic; Z86.14 Personal history of Methicillin resistant Staphylococcus aureus infection; Z79.899 Other long term (current) drug therapy; Z88.0 Allergy status to penicillin; Z71.9 Counseling, unspecified; Z79.01 Long term (current) use of anticoagulants; Z82.49 Family history of ischemic heart disease and other diseases of the circulatory system; Z81.2 Family history of tobacco abuse and dependence; Z80.1 Family history of malignant neoplasm of trachea, bronchus and lung
CPT/HCPCS: 96376 ×3; 96361 ×4; 96366 ×3; 96367; 96365; 96372; 96375; 99291; 36415; 94760; 93005; 93306; 97162; 97165; 83880; 80053 ×2; 80048 ×3; 83735 ×4; 84100 ×2; 84443; 84484; 85025 ×3; 85610; 85730; 81003; 87324; 87045; 83630; 87046; 87635; 71045; 74176; G0378 ×6; G0480; J2060 ×3; J3411; J3475 ×2; C9113; 80320; 96374

== ENCOUNTER 2021-12-19 06:19 | Observation (INO) | payer OTHER ==
[2021-12-19] MEDS ORDERED: SODIUM CHLORIDE 0.9% 1,000 ML IV STA (06:29)
[2021-12-19] MEDS ORDERED: ONDANSETRON 4 MG/2 ML VIAL IVP STA (06:30)
[2021-12-19] MEDS ORDERED: LORazepam 2 MG/ML INJ IV STA (06:30)
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
[2021-12-19 06:43] LABS: Basophils # (A) 0.1 k/uL (0-0.2); Basophils % (A) 1 %; Eosinophils # (A) 0.1 k/uL (0-0.7); Eosinophils % (A) 2 %; HCT 45.6 % (39.0-53.0); HGB 14.9 gm/dL (13.0-17.5); Lymphocytes # (A) 0.7 k/uL (1.0-4.8); Lymphocytes % (A) 10 %; MCHC 32.7 g/dL (31.0-37.0); MCV 97.8 fL (80.0-100.0); Mean Platelet Volume 7.2; Monocytes # (A) 0.3 k/uL (0-1.0); Monocytes % (A) 4 %; Neutrophils # (A) 6.4 k/uL (1.3-7.7); Neutrophils % (A) 84 %; RBC 4.66 m/uL (4.30-5.90); RDW 13.9 % (11.5-15.5); WBC 7.6 k/uL (3.8-10.6)
--- NOTE | 2021-12-19 06:45 | XR ---
EXAMINATION TYPE: XR chest 2V DATE OF EXAM: 12/19/2021 COMPARISON: Chest x-ray November 03, 2021 HISTORY: Chest pain since midnight. TECHNIQUE: Frontal and lateral views of the chest are obtained. FINDINGS: There is no focal air space opacity, pleural effusion, or pneumothorax seen. Stable mild c ardiomegaly. The osseous structures are intact. IMPRESSION: Mild cardiomegaly without acute pulmonary process. No significant change from prior.
[2021-12-19 06:56] LABS: Platelet Count 301 k/uL (150-450)
[2021-12-19 06:58] LABS: Partial Thromboplastin Time 22.1 sec (22.0-30.0); Prothrombin Time 10.5 sec (9.0-12.0)
[2021-12-19 07:17] LABS: ALT 39 U/L (4-49); AST 42 U/L (17-59); African American GFR (CKD) >90 (>60 ml/min/1.73 sqM); Albumin 4.5 g/dL (3.5-5.0); Alcohol 65 mg/dL; Alkaline Phosphatase 68 U/L (38-126); Anion Gap 18 mmol/L; Blood Urea Nitrogen 5 mg/dL (9-20); Calcium 8.8 mg/dL (8.4-10.2); Carbon Dioxide 22 mmol/L (22-30); Chloride 99 mmol/L (98-107); Glucose 95 mg/dL (74-99); Lipase 76 U/L (23-300); Magnesium 1.4 mg/dL (1.6-2.3); Non-African American GFR(CKD) >90 (>60 ml/min/1.73 sqM); Sodium 139 mmol/L (137-145); Total Bilirubin 0.8 mg/dL (0.2-1.3); Total Protein 7.8 g/dL (6.3-8.2)
[2021-12-19 07:18] LABS: Potassium 4.1 mmol/L (3.5-5.1)
[2021-12-19] MEDS ORDERED: MAGNESIUM SULFATE-D5W PMX 1 GM in DEXTROSE/WATER 1 100ML.BAG IVPB ONE (07:28)
[2021-12-19] MEDS ORDERED: LORazepam 2 MG/ML INJ IV PRN ×2 (08:01)
[2021-12-19] MEDS ORDERED: NITROGLYCERIN SL TABS 0.4 MG TAB SUBLINGUAL PRN (08:02)
[2021-12-19] MEDS ORDERED: LOPERAMIDE 2 MG CAP PO PRN (08:03)
[2021-12-19] MEDS ORDERED: NITROGLYCERIN OINT 1 INCH/GM PACKET TOPICAL STA (08:05)
[2021-12-19] MEDS ORDERED: MAGNESIUM OXIDE 400 MG TAB PO SCH (09:00)
[2021-12-19] MEDS ORDERED: METOPROLOL TARTRATE 25 MG TAB PO SCH (09:00)
[2021-12-19] MEDS ORDERED: RIVAROXABAN 20 MG TAB PO SCH (09:00)
[2021-12-19] MEDS ORDERED: FAMOTIDINE 20 MG TAB PO SCH (09:00)
[2021-12-19] MEDS: LORazepam 2 MG/ML INJ IV PRN ×2 (09:11→11:51)
--- NOTE | 2021-12-19 09:47 | P.CRDCN ---
History of Present Illness History of present illness: HISTORY OF PRESENT ILLNESS: This is a 61-year-old male with a past medical history significant for/DVT on Xarelto, nicotine dependence, alcohol abuse, and paroxysmal atrial fibrillation fibrillation (recently diagnosed in October 2021). 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 We have been asked to see the patient in consultation for chest pain. Patient examined at the bedside. Patient states this morning around midnight he began having left-sided chest pain. He describes the pain as a pressure-like sensation and he denies any radiation of the pain. He denied any shortness of breath. He does report feeling diaphoretic and sweaty at the time. He states his symptoms lasted for about 45 hours and finally has remained called EMS to bring him to the hospital. He states that he received Ativan this morning and all of his symptoms have resolved. The patient reports smoking half a pack of cigarettes per day. He denies any drug use including marijuana. He reports decreased alcohol intake over the past few weeks. He reports his last drink was yesterday. * EKG reveals sinus mechanism with no signs of acute ischemia * Chest xray mild cardiomegaly without acute pulmonary process. No significant change from prior. * Laboratory data: W BC 7.6. Hemoglobin 14.9. Platelet count 301. Sodium 139. Potassium 4.1. BUN 5. Creatinine 0.76. Magnesium 1.4. Troponin negative 1. Serum alcohol 65. * Current home cardiac medications include Xarelto 20 mg daily, metoprolol tartrate 25 mg twice a day. * Most recent echocardiogram obtained in October 2021 revealed ejection fraction 55-60%, mild AR, mild MR, mild TR REVIEW OF SYSTEMS: At the time of my exam: CONSTITUTIONAL: Denies fever or chills. HEENT: Denies blurred vision, vision changes, or eye pain. Denies hemoptysis CARDIOVASCULAR: Denies chest pain. Denies orthopnea. Denies PND. Denies palpitations RESPIRATORY: Denies shortness of breath. GASTROINTESTINAL: Denies abdominal pain. Denies nausea or vomiting. HEMATOLOGIC: Denies bleeding disorders. GENITOURINARY: Denies any blood in urine. SKIN: Denies pruitis. Denies rash. PHYSICAL EXAM: VITAL SIGNS: Reviewed. GENERAL: Well-developed in no acute distress. HEENT: Head is normocephalic. Pupils are equal, round. Sclerae anicteric. Mucous membranes of the mouth are moist. Neck supple. No JVD or thyromegaly LUNGS: Respirations even and unlabored. Lungs essentially clear to auscultation bilaterally. HEART: Regular rate and rhythm. S1 and S2 heard. Systolic murmur noted ABDOMEN: Soft. Nondistended. Nontender. EXTREMITIES: Normal range of motion. No clubbing or cyanosis. Peripheral pulses intact. No lower extremity edema NEUROLOGIC: Awake and alert. Oriented x 3. ASSESSMENT: Chest pain, troponins negative 1 Paroxysmal atrial fibrillation History of DVT/PE Nicotine dependence Alcohol abuse Hypomagnesemia History of medication noncompliance PLAN: Continue home cardiac medications Trend troponins No need to repeat echo Recommend abstinence from alcohol Recommend smoking cessation Further recommendations pending patient's course Nurse practitioner note has been reviewed by physician. Signing provider agrees with the documented findings, assessment, and plan of care. Past Medical History Past Medical History: Atrial Fibrillation, Deep Vein Thrombosis (DVT), GERD/Reflux, Liver Disease, Osteoarthritis (OA), Pulmonary Embolus (PE), Sleep Apnea/CPAP/BIPAP Additional Past Medical History / Comment(s): ETOH abuse, alcoholic hepatitis, hepatic steatosis, chronic encephalopathy, thrombocytopenia, 03/2020 fall with brain bleed-transferred from [facility] to [facility]-pt states he still has chronic headaches, chronic low back pain, past DVT R leg and PEs-laterallity unknown, SOB with exertion, bilateral lower leg discolored/edematous. History of Any Multi-Drug Resistant Organisms: MRSA Date of last positivie culture/infection: 2006 MDRO Source:: unk Past Surgical History: Orthopedic Surgery Additional Past Surgical History / Comment(s): Left hand tendon surgery, EGD Past Anesthesia/Blood Transfusion Reactions: No Reported Reaction Smoking Status: Current every day smoker - Past Family History Mother Family Medical History: AFIB Additional Family Medical History / Comment(s): Mother is 81 yrs old. Father Family Medical History: Cancer Additional Family Medical History / Comment(s): Pt believes his father passed from lung cancer. He was a smoker. Medications and Allergies Home Medications Medication Instructions Recorded Confirmed Type Rivaroxaban [Xarelto] 20 mg PO DAILY 03/24/21 12/19/21 History Famotidine [Pepcid] 20 mg PO BID 30 Days #60 tab 11/07/21 12/19/21 Rx Loperamide [Imodium] 2 mg PO QID PRN 7 Days #28 cap 11/07/21 12/19/21 Rx Magnesium Oxide [Mag-Ox] 400 mg PO DAILY #30 tab 11/07/21 12/19/21 Rx Metoprolol Tartrate [Lopressor] 25 mg PO BID #60 tab 11/07/21 12/19/21 Rx Thiamine [Vitamin B-1] 100 mg PO BID-W/MEALS #60 tab 11/07/21 12/19/21 Rx Allergies Allergy/AdvReac Type Severity Reaction Status Date / Time Penicillins Allergy Mild Rash/Hives Verified 11/03/21 08:05 Physical Exam Vitals: Vital Signs Temp Pulse Resp BP Pulse Ox 12/19/21 09:02 73 18 131/91 97 12/19/21 07:35 77 20 137/96 97 12/19/21 06:21 98.4 F 90 22 135/108 95 Intake and Output 12/18/21 12/19/21 12/19/21 22:59 06:59 14:59 Other: Weight 113.398 kg 113.398 kg Results 12/19/21 06:32 12/19/21 06:31 Cardiac Enzymes 12/19/21 12/19/21 Range/Units 06:31 06:31 AST 42 (17-59) U/L Troponin I <0.012 (0.000-0.034) ng/mL Coagulation 12/19/21 Range/Units 06:31 PT 10.5 (9.0-12.0) sec APTT 22.1 (22.0-30.0) sec CBC 12/19/21 Range/Units 06:32 WBC 7.6 (3.8-10.6) k/uL RBC 4.66 (4.30-5.90) m/uL Hgb 14.9 (13.0-17.5) gm/dL Hct 45.6 (39.0-53.0) % Plt Count 301 D (150-450) k/uL Comprehensive Metabolic Panel 12/19/21 Range/Units 06:31 Sodium 139 (137-145) mmol/L Potassium 4.1 (3.5-5.1) mmol/L Chloride 99 (98-107) mmol/L Carbon Dioxide 22 (22-30) mmol/L BUN 5 L (9-20) mg/dL Creatinine 0.76 (0.66-1.25) mg/dL Glucose 95 (74-99) mg/dL Calcium 8.8 (8.4-10.2) mg/dL AST 42 (17-59) U/L ALT 39 (4-49) U/L Alkaline Phosphatase 68 (38-126) U/L Total Protein 7.8 (6.3-8.2) g/dL Albumin 4.5 (3.5-5.0) g/dL Current Medications Generic Name Dose Route Start Last Admin Trade Name Freq PRN Reason Stop Dose Admin Famotidine 20 mg 12/19/21 09:00 12/19/21 08:21 Famotidine 20 Mg Tab PO 20 mg BID JERO Administration Loperamide HCl 2 mg 12/19/21 08:03 Loperamide 2 Mg Cap PO QID PRN Diarrhea Lorazepam 1 mg 12/19/21 08:01 Lorazepam 2 Mg/Ml Inj IV Q2HR PRN CIWA 8 or 9 Lorazepam 1 mg 12/19/21 08:01 Lorazepam 2 Mg/Ml Inj IV Q1HR PRN CIWA 10 to 15 Lorazepam 2 mg 12/19/21 08:01 Lorazepam 2 Mg/Ml Inj IV 12/21/21 08:01 Q10M PRN CIWA 16 or higher Magnesium Oxide 400 mg 12/19/21 09:00 12/19/21 08:21 Magnesium Oxide 400 Mg Tab PO 400 mg DAILY JERO Administration Metoprolol Tartrate 25 mg 12/19/21 09:00 12/19/21 08:21 Metoprolol Tartrate 25 Mg Tab PO 25 mg BID JERO Administration Nitroglycerin 0.4 mg 12/19/21 08:02 Nitroglycerin Sl Tabs 0.4 Mg Tab SUBLINGUAL Q5M PRN Chest Pain Rivaroxaban 20 mg 12/19/21 09:00 12/19/21 08:21 Rivaroxaban 20 Mg Tab PO 20 mg DAILY JERO Administration Protocol Thiamine HCl 100 mg 12/19/21 17:30 Thiamine 100 Mg Tab PO BID-W/MEALS JERO Intake and Output 12/18/21 12/19/21 12/19/21 22:59 06:59 14:59 Other: Weight 113.398 kg 113.398 kg Patient Weight 12/20/21 06:59 Weight 113.398 kg 12/19/21 06:32 12/19/21 06:31
--- NOTE | 2021-12-19 10:29 | ECHOF ---
Referral Reason:chest pain MEASUREMENTS -------- HEIGHT: 182.9 cm WEIGHT: 113.4 kg BP: RVIDd: 3.5 cm (< 3.3) IVSd: 1.4 cm (0.6 - 1.1) LVIDd: 4.6 cm (3.9 - 5.3) LVPWd: 1.5 cm (0.6 - 1.1) IVSs: 1.6 cm LVIDs: 3.1 cm LVPWs: 1.6 cm LA Diam: 3.5 cm (2.7 - 3.8) LAESV Index (A-L): 23.76 ml/m Ao Diam: 3.3 cm (2.0 - 3.7) AV Cusp: 2.2 cm (1.5 - 2.6) LA Diam: 3.9 cm (2.7 - 3.8) MV EXCURSION: 24.295 mm (> 18.000) MV EF SLOPE: 74 mm/s (70 - 150) EPSS: 0.4 cm MV E George: 0.56 m/s MV DecT: 204 ms MV A George: 0.72 m/s MV E/A Ratio: 0.78 RAP: 5.00 mmHg RVSP: 14.52 mmHg FINDINGS -------- Sinus rhythm. This was a technically adequate study. There is moderate concentric left ventricular hypertrophy. Overall left ventricular systolic functi on is normal with, an EF between 55 - 60 %. The diastolic filling pattern is normal for the age of the patient 7.86. The right ventricle is normal in size. Normal LA size by volume 22+/-6 ml/m2. The right atrial size is normal. The aortic valve is trileaflet and appears structurally normal. Trace to mild aortic regurgitation. The mitral valve is normal. Mild mitral regurgitation is present. The tricuspid valve appears structurally normal. Mild tricuspid regurgitation present. Right vent ricular systolic pressure is normal at < 35 mmHg. There is no pulmonic regurgitation present. The aortic root size is normal. There is no pericardial effusion. CONCLUSIONS -------- 1. There is moderate concentric left ventricular hypertrophy. 2. Overall left ventricular systolic function is normal with, an EF between 55 - 60 %. 3. Trace to mild aortic regurgitation. 4. Mild mitral regurgitation is present. 5. Mild tricuspid regurgitation present. 6. There is no pericardial effusion. [employer]: Sapna Oropeza RDCS
--- NOTE | 2021-12-19 11:29 | P.HPIM ---
History of Present Illness H&P Date: 12/19/21 History of Presenting Illness: Patient is a very pleasant 61-year-old male with a past medical history of EtOH use/abuse, nicotine dependence, paroxysmal atrial fibrillation and history of DVT on anticoagulation with Xarelto. Patient presented to the emergency department with the chief complaint of chest pain. Patient reports after bashir with alcohol he began to feel very shaky, anxious and his heart was racing. Patient reports he felt as if he had palpitations and wasn't sure if it was his atrial fibrillation or chest pain or withdrawing from alcohol. Patient reports drinking a fifth of vodka daily along with some beers stating last drink was last night. Patient reports he just wants to make sure his heart is okay. Patient denies wanting any help with inpatient placement for drug/alcohol rehabilitation and reports currently plans to cut back at home himself. Patient underwent full evaluation in the emergency department CBC unremarkable. Coags normal findings. BMP unremarkable. Magnesium was 1.4 and replaced in the ER. Initial troponin less than 0.012. EKG showing normal sinus rhythm and 91 bpm with no noted T-wave or ST abnormalities. Patient was admitted under our services with consultation to cardiology. [facility]. He denies having any chest pain at this current time reports feeling shaky and mildly nausea and received 1 dose of Ativan. Patient reports he just wants to make sure his heart is okay and plans to be discharged. Patient denies having any headache, lightheadedness, dizziness, shortness of breath, vomiting, or experiencing any numbness/tingling/weakness/swelling in his extremities. Review of systems: Pertinent positives and negatives as discussed in HPI, a complete review of syst ems was performed and all other systems are negative. Physical exam: Vital signs reviewed and stable. General: Nontoxic, no distress and appears stated age. Derm: Skin warm and dry, normal coloration for ethnicity. Head: Atraumatic, normocephalic and symmetric. Eyes: EOMs intact, no lid lag, and anicteric sclera Mouth: no lip lesions, mucus membranes moist Cardiovascular: regular rate and rhythm with normal S1S2, no murmur, positive posterior tibial pulses bilaterally, and cap refill < 2 seconds. Lungs: Respirations even, regular, and unlabored on room air. Lungs CTA bilaterally, no rhonchi, no rales, no wheezing, and no accessory muscle usage. Abdominal: soft, nontender to palpation, no guarding, no appreciable organomegaly Ext: ROM intact. No gross muscle atrophy, no edema, no contractures Neuro: Speech clear, face symmetrical and CN II-XII grossly intact with no noted focal neuro deficits Psych: Alert and oriented to person, place, time, and situation. Appropriate and pleasant affect. Assessment and Plan of Care: Chest pain, rule out acute coronary event -Cardiology consult, appreciate further recommendations -Telemetry monitoring -Trend troponins -Cardiac diet, NPO at midnight -Aspirin, Xarelto, and metoprolol -Lipid profile with a.m. labs. -Echocardiogram Hypomagnesemia, replaced The patient is admitted with an anticipated less than 2 midnight stay for krystina luation of chest pain. CODE STATUS: Full code DVT prophylaxis: Xarelto Discussed with: Pt and RN Anticipated discharge date: Clinical course to determine Anticipated discharge place: Home A total of 40 minutes was spent on the care of this complex patient more than 50% of the time was spent in counseling and care coordination. Past Medical History Past Medical History: Atrial Fibrillation, Deep Vein Thrombosis (DVT), GERD/Reflux, Liver Disease, Osteoarthritis (OA), Pulmonary Embolus (PE), Sleep Apnea/CPAP/BIPAP Additional Past Medical History / Comment(s): ETOH abuse, alcoholic hepatitis, hepatic steatosis, chronic encephalopathy, thrombocytopenia, 03/2020 fall with brain bleed-transferred from [facility] to [facility]-pt states he still has chronic headaches, chronic low back pain, past DVT R leg and PEs-laterallity unknown, SOB with exertion, bilateral lower leg discolored/edematous. History of Any Multi-Drug Resistant Organisms: MRSA Date of last positivie culture/infection: 2006 MDRO Source:: unk Past Surgical History: Orthopedic Surgery Additional Past Surgical History / Comment(s): Left hand tendon surgery, EGD Past Anesthesia/Blood Transfusion Reactions: No Reported Reaction Smoking Status: Current every day smoker - Past Family History Mother Family Medical History: AFIB Additional Family Medical History / Comment(s): Mother is 81 yrs old. Father Family Medical History: Cancer Additional Family Medical History / Comment(s): Pt believes his father passed from lung cancer. He was a smoker. Medications and Allergies Home Medications Medication Instructions Recorded Confirmed Type Rivaroxaban [Xarelto] 20 mg PO DAILY 03/24/21 12/19/21 History Famotidine [Pepcid] 20 mg PO BID 30 Days #60 tab 11/07/21 12/19/21 Rx Loperamide [Imodium] 2 mg PO QID PRN 7 Days #28 cap 11/07/21 12/19/21 Rx Magnesium Oxide [Mag-Ox] 400 mg PO DAILY #30 tab 11/07/21 12/19/21 Rx Metoprolol Tartrate [Lopressor] 25 mg PO BID #60 tab 11/07/21 12/19/21 Rx Thiamine [Vitamin B-1] 100 mg PO BID-W/MEALS #60 tab 11/07/21 12/19/21 Rx Allergies Allergy/AdvReac Type Severity Reaction Status Date / Time Penicillins Allergy Mild Rash/Hives Verified 11/03/21 08:05 Physical Exam Vitals: Vital Signs Temp Pulse Resp BP Pulse Ox 12/19/21 07:35 77 20 137/96 97 12/19/21 06:21 98.4 F 90 22 135/108 95 Intake and Output 12/18/21 12/19/21 12/19/21 22:59 06:59 14:59 Other: Weight 113.398 kg 113.398 kg Results CBC & Chem 7: 12/19/21 06:32 12/19/21 06:31 Labs: Abnormal Lab Results - Last 24 Hours (Table) 12/19/21 12/19/21 Range/Units 06:31 06:32 Lymphocytes # 0.7 L (1.0-4.8) k/uL BUN 5 L (9-20) mg/dL Magnesium 1.4 L (1.6-2.3) mg/dL
[2021-12-19 14:45] VITALS: TEMP 98.4
--- NOTE | 2021-12-19 15:30 | P.DS ---
Providers Date of admission: 12/19/21 08:11 Expected date of discharge: 12/19/21 Attending physician: Abby Suarez DO Primary care physician: Per Urrutia Hospital Course: Discharge Diagnosis: Chest pain and palpitations, acute coronary event ruled out Alcohol abuse, patient encouraged to stop drinking alcohol. Hypomagnesemia, replaced Paroxysmal atrial fibrillation and history of DVT continue anticoagulation with Xarelto Nicotine dependence, encourage smoking cessation Hospital Course: Patient is a very pleasant 61-year-old male with a past medical history of EtOH use/abuse, nicotine dependence, paroxysmal atrial fibrillation and history of DVT on anticoagulation with Xarelto. Patient presented to the emergency department with the chief complaint of chest pain. Patient reports after bashir with alcohol he began to feel very shaky, anxious and his heart was racing. Patient reports he felt as if he had palpitations and wasn't sure if it was his atrial fibrillation or chest pain or withdrawing from alcohol. Patient reports drinking a fifth of vodka daily along with some beers stating last drink was last night. Patient reports he just wants to make sure his heart is okay. Patient denies wanting any help with inpatient placement for drug/alcohol rehabilitation and reports currently plans to cut back at home himself. Patient underwent full evaluation in the emergency department CBC unremarkable. Coags normal findings. BMP unremarkable. Magnesium was 1.4 and replaced in the ER. Initial troponin less than 0.012. EKG showing normal sinus rhythm and 91 bpm with no noted T-wave or ST abnormalities. Patient was admitted under our services with consultation to cardiology. Echocardiogram completed revealing moderate concentric left ventricular hypertrophy with a normal EF of 55-60% and no significant valvular abnormalities. Evidence trended 3 all less than 0.012. Patient seen and evaluated by cardiology with clearing patient at this time. Patient was evaluated with CIWA of 4, patient declined wanting to stay in the hospital for alcohol withdrawal and requesting discharge. Patient is medically stable for discharge home at this time. Encouraged cessation of alcohol use. Patient to continue daily Mag-Ox, thiamine, metoprolol, and Xarelto. Patient seen and examined at bedside Vital signs reviewed and stable. General: Nontoxic, no distress and appears stated age. Derm: Skin warm and dry, normal coloration for ethnicity. Head: Atraumatic, normocephalic and symmetric. Eyes: EOMs intact, no lid lag, and anicteric sclera Mouth: no lip lesions, mucus membranes moist Cardiovascular: regular rate and rhythm with normal S1S2, no murmur, positive posterior tibial pulses bilaterally, and cap refill < 2 seconds. Lungs: Respirations even, regular, and unlabored on room air. Lungs CTA bilaterally, no rhonchi, no rales, no wheezing, and no accessory muscle usage. Abdominal: soft, nontender to palpation, no guarding, no appreciable organomegaly Ext: ROM intact. No gross muscle atrophy, no edema, no contractures Neuro: Speech clear, face symmetrical and CN II-XII grossly intact with no noted focal neuro deficits Psych: Alert and oriented to person, place, time, and situation. Appropriate and pleasant affect. A total of 35 minutes of time were spent preparing this complex discharge summary. Patient Condition at Discharge: Stable Plan - Discharge Summary Discharge Rx Participant: No New Discharge Prescriptions: Continue Metoprolol Tartrate [Lopressor] 25 mg PO BID #60 tab Magnesium Oxide [Mag-Ox] 400 mg PO DAILY #30 tab Rivaroxaban [Xarelto] 20 mg PO DAILY Loperamide [Imodium] 2 mg PO QID PRN 7 Days #28 cap PRN Reason: Diarrhea Famotidine [Pepcid] 20 mg PO BID 30 Days #60 tab Thiamine [Vitamin B-1] 100 mg PO BID-W/MEALS #60 tab Discharge Medication List Rivaroxaban [Xarelto] 20 mg PO DAILY 03/24/21 [History] Famotidine [Pepcid] 20 mg PO BID 30 Days #60 tab 11/07/21 [Rx] Loperamide [Imodium] 2 mg PO QID PRN 7 Days #28 cap 11/07/21 [Rx] Magnesium Oxide [Mag-Ox] 400 mg PO DAILY #30 tab 11/07/21 [Rx] Metoprolol Tartrate [Lopressor] 25 mg PO BID #60 tab 11/07/21 [Rx] Thiamine [Vitamin B-1] 100 mg PO BID-W/MEALS #60 tab 11/07/21 [Rx] Follow up Appointment(s)/Referral(s): Ghada Albarado MD [Primary Care Provider] - 1-2 days Ratna Rogers MD [STAFF PHYSICIAN] - 1 Week Patient Instructions/Handouts: Chest Pain (DC), Abuse of Alcohol (DC), Abuse of Alcohol (GEN) Activity/Diet/Wound Care/Special Instructions: Activity: As tolerated. Take breaks as needed. Diet: Heart healthy and carb consistent diet. Avoid salts, or foods with hidden salts such as canned or boxed foods and frozen dinners. Extra salt makes your heart work harder and traps the fluid in your body for longer. Special Instructions: Take all of your medications as directed and remember to keep all of your doctor's appointments and follow-up as needed. It is very important to stop drinking alcohol, continued use of daily alcohol ca n lead to significant health complications up to and including . Thank you for allowing us to participate in your care, it was truly a pleasure having you for our patient!!! Discharge Disposition: HOME SELF-CARE
[2021-12-19 15:50] VITALS: BP 153/97; PULSE 60; RESP 20
[2021-12-19] MEDS ORDERED: THIAMINE 100 MG TAB PO SCH ×2 (17:30)
[2021-12-20] MEDS ORDERED: ASPIRIN 325 MG TAB PO SCH (09:00)
== END 2021-12-19 18:10 | disposition home or self-care (01) ==
LOC: EC 06:19 → 6NMEDSUR 08:11
PROVIDERS: ADMIT Internal Medicine; ATTEND Internal Medicine
DX: R07.89 Other chest pain (principal); R00.2 Palpitations; F10.10 Alcohol abuse, uncomplicated; E83.42 Hypomagnesemia; I48.0 Paroxysmal atrial fibrillation; Z86.718 Personal history of other venous thrombosis and embolism; Z86.711 Personal history of pulmonary embolism; F17.210 Nicotine dependence, cigarettes, uncomplicated; R11.2 Nausea with vomiting, unspecified; I08.1 Rheumatic disorders of both mitral and tricuspid valves; G47.30 Sleep apnea, unspecified; M19.90 Unspecified osteoarthritis, unspecified site; F32.A Depression, unspecified; F41.9 Anxiety disorder, unspecified; D69.6 Thrombocytopenia, unspecified; G89.29 Other chronic pain; M54.50 Low back pain, unspecified; R06.02 Shortness of breath; R60.9 Edema, unspecified; K70.10 Alcoholic hepatitis without ascites; K76.0 Fatty (change of) liver, not elsewhere classified; G93.40 Encephalopathy, unspecified; Z91.81 History of falling; Z79.01 Long term (current) use of anticoagulants; Z79.899 Other long term (current) drug therapy; Z88.0 Allergy status to penicillin; Z86.14 Personal history of Methicillin resistant Staphylococcus aureus infection; Z91.14 Patient's other noncompliance with medication regimen; Z71.6 Tobacco abuse counseling; Z71.41 Alcohol abuse counseling and surveillance of alcoholic; Z71.9 Counseling, unspecified; Z82.49 Family history of ischemic heart disease and other diseases of the circulatory system
CPT/HCPCS: 96376; 96361; 96365; 96375; 99285; 36415; 93005; 93306; 80053; 83690; 83735; 84484; 85025; 85610; 85730; 71046; G0378; G0480; J2060; J2405; J3475; 80320

== ENCOUNTER 2021-12-24 08:52 | Emergency (ER) | payer OTHER ==
[2021-12-24] MEDS ORDERED: ASPIRIN 81 MG PO STA (08:55)
--- NOTE | 2021-12-24 08:58 | ED ---
General Adult HPI - General Stated complaint: Chest Pain Time Seen by Provider: 12/24/21 08:54 Source: patient, EMS, RN notes reviewed Mode of arrival: EMS Limitations: no limitations - History of Present Illness Initial comments: This a 61-year-old male presents emergency from she complaint of palpitations, shortness breath. Patient states that he was just discharged 5 days ago for similar complaints. Patient was admitted at time for hypomagnesemia, alcohol abuse, chest pain. Patient reports of which was negative. Patient is cleared by cardiology. Patient was discharged in stable condition. Patient states that symptoms started again overnight he does have a history of alcohol abuse. Patient states his feels his heart racing is very anxious from this. Patient states he has mild leg swelling no leg discomfort associated with. Patient is on current Xarelto for atrial fibrillation. - Related Data Home Medications Medication Instructions Recorded Confirmed Rivaroxaban [Xarelto] 20 mg PO DAILY 03/24/21 12/24/21 Previous Rx's Medication Instructions Recorded Famotidine [Pepcid] 20 mg PO BID 30 Days #60 tab 11/07/21 Magnesium Oxide [Mag-Ox] 400 mg PO DAILY #30 tab 11/07/21 Metoprolol Tartrate [Lopressor] 25 mg PO BID #60 tab 11/07/21 Thiamine [Vitamin B-1] 100 mg PO BID-W/MEALS #60 tab 11/07/21 Allergies Allergy/AdvReac Type Severity Reaction Status Date / Time Penicillins Allergy Mild Rash/Hives Verified 12/24/21 10:22 Review of Systems ROS Statement: Those systems with pertinent positive or pertinent negative responses have been documented in the HPI. ROS Other: All systems not noted in ROS Statement are negative. Past Medical History Past Medical History: Atrial Fibrillation, Deep Vein Thrombosis (DVT), GERD/Reflux, Liver Disease, Osteoarthritis (OA), Pulmonary Embolus (PE), Sleep Apnea/CPAP/BIPAP Additional Past Medical History / Comment(s): ETOH abuse, alcoholic hepatitis, hepatic steatosis, chronic encephalopathy, thrombocytopenia, 03/2020 fall with brain bleed-transferred from [facility] to [facility]-pt states he still has chronic headaches, chronic low back pain, past DVT R leg and PEs-laterallity unknown, SOB with exertion, bilateral lower leg discolored/edematous. History of Any Multi-Drug Resistant Organisms: MRSA Date of last positivie culture/infection: 2006 MDRO Source:: unk Past Surgical History: Orthopedic Surgery Additional Past Surgical History / Comment(s): Left hand tendon surgery, EGD Past Anesthesia/Blood Transfusion Reactions: No Reported Reaction Smoking Status: Current every day smoker - Past Family History Mother Family Medical History: AFIB Additional Family Medical History / Comment(s): Mother is 81 yrs old. Father Family Medical History: Cancer Additional Family Medical History / Comment(s): Pt believes his father passed from lung cancer. He was a smoker. General Exam Limitations: no limitations General appearance: alert, in no apparent distress, anxious Head exam: Present: atraumatic, normocephalic, normal inspection Eye exam: Present: normal appearance, PERRL, EOMI. Absent: scleral icterus, conjunctival injection, periorbital swelling ENT exam: Present: normal exam, normal oropharynx, mucous membranes moist Neck exam: Present: normal inspection, full ROM. Absent: tenderness, meningismus, lymphadenopathy Respiratory exam: Present: normal lung sounds bilaterally. Absent: respiratory distress, wheezes, rales, rhonchi, stridor Cardiovascular Exam: Present: regular rate, normal rhythm, normal heart sounds. Absent: systolic murmur, diastolic murmur, rubs, gallop, clicks Neurological exam: Present: alert, oriented X3 Skin exam: Present: warm, dry, intact, normal color. Absent: rash Course Vital Signs 12/24/21 12/24/21 08:53 10:01 Temperature 98.1 F Pulse Rate 113 H 100 Respiratory 18 18 Rate Blood Pressure 156/110 142/97 O2 Sat by Pulse 96 98 Oximetry EKG Findings - EKG Comments: EKG Findings:: EKG performed at 9:08 sinus tachycardia with rate of 104 OK 140 QRS 84 QT/QTC 3:30/[address] elevation or depression noted Medical Decision Making - Medical Decision Making Patient presented for palpitations. Patient does have a history of proximal A. fib. Patient is currently in sinus rhythm he has no complaints of chest pain currently had palpitations causing for short of breath which has resolved. He does have acute alcohol intoxication and which is chronic issue for patient. Patient was cleared by cardiology 5 days ago. 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 - Lab Data Result diagrams: 12/24/21 09:36 12/24/21 09:36 Lab Results 12/24/21 12/24/21 12/24/21 Range/Units 09:36 09:36 09:36 WBC 6.6 (3.8-10.6) k/uL RBC 5.29 (4.30-5.90) m/uL Hgb 17.5 (13.0-17.5) gm/dL Hct 52.4 (39.0-53.0) % MCV 99.1 (80.0-100.0) fL MCH 33.1 (25.0-35.0) pg MCHC 33.4 (31.0-37.0) g/dL RDW 15.2 (11.5-15.5) % Plt Count 208 (150-450) k/uL MPV 6.8 Neutrophils % 79 % Lymphocytes % 15 % Monocytes % 3 % Eosinophils % 1 % Basophils % 1 % Neutrophils # 5.2 (1.3-7.7) k/uL Lymphocytes # 1.0 (1.0-4.8) k/uL Monocytes # 0.2 (0-1.0) k/uL Eosinophils # 0.1 (0-0.7) k/uL Basophils # 0.0 (0-0.2) k/uL Macrocytosis Slight PT 10.1 (9.0-12.0) sec INR 0.9 (<1.2) APTT 22.9 (22.0-30.0) sec Sodium 140 (137-145) mmol/L Potassium 4.8 (3.5-5.1) mmol/L Chloride 103 (98-107) mmol/L Carbon Dioxide 14 L (22-30) mmol/L Anion Gap 23 mmol/L BUN 11 (9-20) mg/dL Creatinine 0.90 (0.66-1.25) mg/dL Est GFR (CKD-EPI)AfAm >90 (>60 ml/min/1.73 sqM) Est GFR (CKD-EPI)NonAf >90 (>60 ml/min/1.73 sqM) Glucose 79 (74-99) mg/dL Calcium 8.7 (8.4-10.2) mg/dL Magnesium 1.9 (1.6-2.3) mg/dL Total Bilirubin 1.5 H (0.2-1.3) mg/dL AST 52 (17-59) U/L ALT 40 (4-49) U/L Alkaline Phosphatase 103 (38-126) U/L Troponin I (0.000-0.034) ng/mL NT-Pro-B Natriuret Pep pg/mL Total Protein 8.3 H (6.3-8.2) g/dL Albumin 4.9 (3.5-5.0) g/dL Lipase 225 (23-300) U/L Serum Alcohol 252 H* mg/dL 12/24/21 12/24/21 Range/Units 09:36 09:36 WBC (3.8-10.6) k/uL RBC (4.30-5.90) m/uL Hgb (13.0-17.5) gm/dL Hct (39.0-53.0) % MCV (80.0-100.0) fL MCH (25.0-35.0) pg MCHC (31.0-37.0) g/dL RDW (11.5-15.5) % Plt Count (150-450) k/uL MPV Neutrophils % % Lymphocytes % % Monocytes % % Eosinophils % % Basophils % % Neutrophils # (1.3-7.7) k/uL Lymphocytes # (1.0-4.8) k/uL Monocytes # (0-1.0) k/uL Eosinophils # (0-0.7) k/uL Basophils # (0-0.2) k/uL Macrocytosis PT (9.0-12.0) sec INR (<1.2) APTT (22.0-30.0) sec Sodium (137-145) mmol/L Potassium (3.5-5.1) mmol/L Chloride (98-107) mmol/L Carbon Dioxide (22-30) mmol/L Anion Gap mmol/L BUN (9-20) mg/dL Creatinine (0.66-1.25) mg/dL Est GFR (CKD-EPI)AfAm (>60 ml/min/1.73 sqM) Est GFR (CKD-EPI)NonAf (>60 ml/min/1.73 sqM) Glucose (74-99) mg/dL Calcium (8.4-10.2) mg/dL Magnesium (1.6-2.3) mg/dL Total Bilirubin (0.2-1.3) mg/dL AST (17-59) U/L ALT (4-49) U/L Alkaline Phosphatase (38-126) U/L Troponin I <0.012 (0.000-0.034) ng/mL NT-Pro-B Natriuret Pep 26 pg/mL Total Protein (6.3-8.2) g/dL Albumin (3.5-5.0) g/dL Lipase (23-300) U/L Serum Alcohol mg/dL Disposition Clinical Impression: Palpitations, Alcohol intoxication Disposition: HOME SELF-CARE Condition: Stable Instructions (If sedation given, give patient instructions): Heart Palpitations (ED) Additional Instructions: Please return to the Emergency Department if symptoms worsen or any other concerns. Is patient prescribed a controlled substance at d/c from ED?: No Referrals: Ghada Albarado MD [Primary Care Provider] - 1-2 days Time of Disposition: 10:56
[2021-12-24 09:01] VITALS: TEMP 98.1
[2021-12-24] MEDS ORDERED: LORazepam 2 MG/ML INJ IV STA (09:17)
[2021-12-24 09:44] LABS: Basophils % (A) 1 %; Eosinophils # (A) 0.1 k/uL (0-0.7); Eosinophils % (A) 1 %; HCT 52.4 % (39.0-53.0); HGB 17.5 gm/dL (13.0-17.5); Lymphocytes % (A) 15 %; MCH 33.1 pg (25.0-35.0); MCHC 33.4 g/dL (31.0-37.0); MCV 99.1 fL (80.0-100.0); Macrocytosis Slight; Mean Platelet Volume 6.8; Monocytes # (A) 0.2 k/uL (0-1.0); Monocytes % (A) 3 %; Neutrophils # (A) 5.2 k/uL (1.3-7.7); Neutrophils % (A) 79 %; Platelet Count 208 k/uL (150-450); RBC 5.29 m/uL (4.30-5.90); RDW 15.2 % (11.5-15.5); WBC 6.6 k/uL (3.8-10.6)
[2021-12-24 09:54] LABS: ALT 40 U/L (4-49); AST 52 U/L (17-59); African American GFR (CKD) >90 (>60 ml/min/1.73 sqM); Albumin 4.9 g/dL (3.5-5.0); Alkaline Phosphatase 103 U/L (38-126); Anion Gap 23 mmol/L; Blood Urea Nitrogen 11 mg/dL (9-20); Calcium 8.7 mg/dL (8.4-10.2); Carbon Dioxide 14 mmol/L (22-30); Chloride 103 mmol/L (98-107); Glucose 79 mg/dL (74-99); Lipase 225 U/L (23-300); Magnesium 1.9 mg/dL (1.6-2.3); Non-African American GFR(CKD) >90 (>60 ml/min/1.73 sqM); Potassium 4.8 mmol/L (3.5-5.1); Sodium 140 mmol/L (137-145); Total Bilirubin 1.5 mg/dL (0.2-1.3); Total Protein 8.3 g/dL (6.3-8.2)
[2021-12-24 09:56] LABS: Alcohol 252 mg/dL
[2021-12-24 10:03] LABS: INR 0.9 (<1.2); Partial Thromboplastin Time 22.9 sec (22.0-30.0); Prothrombin Time 10.1 sec (9.0-12.0)
--- NOTE | 2021-12-24 10:27 | XR ---
EXAMINATION TYPE: XR chest 2V DATE OF EXAM: 12/24/2021 COMPARISON: 12/19/2021 INDICATION: Chest pain TECHNIQUE: Frontal and lateral views of the chest are obtained. FINDINGS: The heart size is normal. The pulmonary vasculature is normal. The lungs are clear. IMPRESSION: 1. No acute pulmonary process.
[2021-12-24 11:08] VITALS: BP 144/78; PULSE 92; RESP 16
== END 2021-12-24 11:08 | disposition home or self-care (01) ==
LOC: EC 08:52
DX: R00.2 Palpitations (principal); F10.129 Alcohol abuse with intoxication, unspecified; I48.91 Unspecified atrial fibrillation; K21.9 Gastro-esophageal reflux disease without esophagitis; M19.90 Unspecified osteoarthritis, unspecified site; F17.200 Nicotine dependence, unspecified, uncomplicated; Z88.0 Allergy status to penicillin; Z86.718 Personal history of other venous thrombosis and embolism; Z86.711 Personal history of pulmonary embolism; Y90.8 Blood alcohol level of 240 mg/100 ml or more
CPT/HCPCS: 99285; 96374; 36415; 93005; 83880; 80053; 83690; 83735; 84484; 85025; 85610; 85730; 71046; G0480; J2060; 80320

== ENCOUNTER 2021-12-24 17:15 | Emergency (ER) | payer OTHER ==
[2021-12-24 17:58] VITALS: BP 143/99; PULSE 106; RESP 18; TEMP 97.5
== END 2021-12-24 20:20 | disposition left against medical advice (07) ==
LOC: EC 17:15
DX: Z53.21 Procedure and treatment not carried out due to patient leaving prior to being seen by health care provider (principal)
CPT/HCPCS: 93005; 99499

== ENCOUNTER 2021-12-26 07:30 | Inpatient (IN) | payer OTHER ==
--- NOTE | 2021-12-26 07:39 | ED ---
General Adult HPI - General Chief complaint: Shortness of Breath Stated complaint: SOB Time Seen by Provider: 12/26/21 07:31 Source: patient, EMS, RN notes reviewed Mode of arrival: EMS Limitations: no limitations - History of Present Illness Initial comments: Patient is a pleasant 61-year-old male presenting to the emergency department with concerns with difficulty breathing. Onset of symptoms was several days ago. No cough. No fever. No chest pain. Patient does have some leg swelling. Dyspnea does worsen with exertion. No orthopnea. No history of similar symptoms previously. Patient is still taking his Xarelto. - Related Data Home Medications Medication Instructions Recorded Confirmed Rivaroxaban [Xarelto] 20 mg PO DAILY 03/24/21 12/26/21 Previous Rx's Medication Instructions Recorded Famotidine [Pepcid] 20 mg PO BID 30 Days #60 tab 11/07/21 Magnesium Oxide [Mag-Ox] 400 mg PO DAILY #30 tab 11/07/21 Metoprolol Tartrate [Lopressor] 25 mg PO BID #60 tab 11/07/21 Thiamine [Vitamin B-1] 100 mg PO BID-W/MEALS #60 tab 11/07/21 Allergies Allergy/AdvReac Type Severity Reaction Status Date / Time Penicillins Allergy Mild Rash/Hives Verified 12/26/21 09:01 Review of Systems ROS Statement: Those systems with pertinent positive or pertinent negative responses have been documented in the HPI. ROS Other: All systems not noted in ROS Statement are negative. Constitutional: Denies: fever Eyes: Denies: eye pain ENT: Denies: ear pain Respiratory: Reports: dyspnea. Denies: cough Cardiovascular: Denies: chest pain Endocrine: Reports: fatigue Gastrointestinal: Denies: abdominal pain Genitourinary: Denies: dysuria Musculoskeletal: Denies: back pain Skin: Denies: rash Neurological: Denies: weakness Past Medical History Past Medical History: Atrial Fibrillation, Deep Vein Thrombosis (DVT), GERD/Reflux, Liver Disease, Osteoarthritis (OA), Pulmonary Embolus (PE), Sleep Apnea/CPAP/BIPAP Additional Past Medical History / Comment(s): ETOH abuse, alcoholic hepatitis, hepatic steatosis, chronic encephalopathy, thrombocytopenia, 03/2020 fall with brain bleed-transferred from [facility] to [facility]-pt states he still has chronic headaches, chronic low back pain, past DVT R leg and PEs-laterallity unknown, SOB with exertion, bilateral lower leg discolored/edematous. History of Any Multi-Drug Resistant Organisms: MRSA Date of last positivie culture/infection: 2006 MDRO Source:: unk Past Surgical History: Orthopedic Surgery Additional Past Surgical History / Comment(s): Left hand tendon surgery, EGD Past Anesthesia/Blood Transfusion Reactions: No Reported Reaction Past Psychological History: Anxiety, Depression Smoking Status: Current every day smoker Past Alcohol Use History: Abuse Past Drug Use History: None Reported - Past Family History Mother Family Medical History: AFIB Additional Family Medical History / Comment(s): Mother is 81 yrs old. Father Family Medical History: Cancer Additional Family Medical History / Comment(s): Pt believes his father passed from lung cancer. He was a smoker. General Exam Limitations: no limitations General appearance: alert, in no apparent distress Head exam: Present: normocephalic Eye exam: Present: normal appearance Neck exam: Present: normal inspection Respiratory exam: Present: normal lung sounds bilaterally Cardiovascular Exam: Present: tachycardia GI/Abdominal exam: Present: soft. Absent: tenderness Extremities exam: Present: pedal edema. Absent: calf tenderness Neurological exam: Present: alert Psychiatric exam: Present: normal affect, normal mood Skin exam: Present: normal color Course Vital Signs 12/26/21 12/26/21 07:31 07:35 Temperature 97.9 F Pulse Rate 120 H Respiratory 18 20 Rate Blood Pressure 159/108 O2 Sat by Pulse 97 Oximetry EKG Findings - EKG Comments: EKG Findings:: Sinus tachycardia 109. OR 136. QRS 86. QT 312. QTC 376. Normal axis. Normal QRS. No acute ST change. Medical Decision Making - Medical Decision Making Patient reevaluated. Patient updated. Case discussed with Dr. Catalan, who will admit covering hospital observation - Lab Data Result diagrams: 12/26/21 07:41 12/26/21 07:41 Lab Results 12/26/21 12/26/21 12/26/21 Range/Units 07:41 07:41 07:41 WBC 6.5 (3.8-10.6) k/uL RBC 5.19 (4.30-5.90) m/uL Hgb 17.2 (13.0-17.5) gm/dL Hct 50.7 (39.0-53.0) % MCV 97.7 (80.0-100.0) fL MCH 33.1 (25.0-35.0) pg MCHC 33.9 (31.0-37.0) g/dL RDW 14.8 (11.5-15.5) % Plt Count 139 L (150-450) k/uL MPV 7.4 Neutrophils % 81 % Lymphocytes % 12 % Monocytes % 4 % Eosinophils % 1 % Basophils % 0 % Neutrophils # 5.3 (1.3-7.7) k/uL Lymphocytes # 0.8 L (1.0-4.8) k/uL Monocytes # 0.3 (0-1.0) k/uL Eosinophils # 0.0 (0-0.7) k/uL Basophils # 0.0 (0-0.2) k/uL PT 9.9 (9.0-12.0) sec INR 0.9 (<1.2) APTT 22.5 (22.0-30.0) sec D-Dimer 1.14 H (<0.60) mg/L FEU Sodium 133 L (137-145) mmol/L Potassium 4.3 (3.5-5.1) mmol/L Chloride 96 L (98-107) mmol/L Carbon Dioxide 15 L (22-30) mmol/L Anion Gap 22 mmol/L BUN 13 (9-20) mg/dL Creatinine 0.79 (0.66-1.25) mg/dL Est GFR (CKD-EPI)AfAm >90 (>60 ml/min/1.73 sqM) Est GFR (CKD-EPI)NonAf >90 (>60 ml/min/1.73 sqM) Glucose 92 (74-99) mg/dL Lactic Ac Sepsis Rflx Plasma Lactic Acid Azam (0.7-2.0) mmol/L Calcium 8.6 (8.4-10.2) mg/dL Magnesium 1.7 (1.6-2.3) mg/dL Total Bilirubin 1.9 H (0.2-1.3) mg/dL AST 68 H (17-59) U/L ALT 44 (4-49) U/L Alkaline Phosphatase 96 (38-126) U/L Troponin I (0.000-0.034) ng/mL NT-Pro-B Natriuret Pep pg/mL Total Protein 8.3 H (6.3-8.2) g/dL Albumin 4.9 (3.5-5.0) g/dL Serum Alcohol 218 H* mg/dL Coronavirus (PCR) (Not Detectd) Influenza Type A RNA (Not Detectd) Influenza Type B (PCR) (Not Detectd) 12/26/21 12/26/21 12/26/21 Range/Units 07:41 07:41 07:41 WBC (3.8-10.6) k/uL RBC (4.30-5.90) m/uL Hgb (13.0-17.5) gm/dL Hct (39.0-53.0) % MCV (80.0-100.0) fL MCH (25.0-35.0) pg MCHC (31.0-37.0) g/dL RDW (11.5-15.5) % Plt Count (150-450) k/uL MPV Neutrophils % % Lymphocytes % % Monocytes % % Eosinophils % % Basophils % % Neutrophils # (1.3-7.7) k/uL Lymphocytes # (1.0-4.8) k/uL Monocytes # (0-1.0) k/uL Eosinophils # (0-0.7) k/uL Basophils # (0-0.2) k/uL PT (9.0-12.0) sec INR (<1.2) APTT (22.0-30.0) sec D-Dimer (<0.60) mg/L FEU Sodium (137-145) mmol/L Potassium (3.5-5.1) mmol/L Chloride (98-107) mmol/L Carbon Dioxide (22-30) mmol/L Anion Gap mmol/L BUN (9-20) mg/dL Creatinine (0.66-1.25) mg/dL Est GFR (CKD-EPI)AfAm (>60 ml/min/1.73 sqM) Est GFR (CKD-EPI)NonAf (>60 ml/min/1.73 sqM) Glucose (74-99) mg/dL Lactic Ac Sepsis Rflx Plasma Lactic Acid Azam 4.7 H* (0.7-2.0) mmol/L Calcium (8.4-10.2) mg/dL Magnesium (1.6-2.3) mg/dL Total Bilirubin (0.2-1.3) mg/dL AST (17-59) U/L ALT (4-49) U/L Alkaline Phosphatase (38-126) U/L Troponin I <0.012 (0.000-0.034) ng/mL NT-Pro-B Natriuret Pep 39 pg/mL Total Protein (6.3-8.2) g/dL Albumin (3.5-5.0) g/dL Serum Alcohol mg/dL Coronavirus (PCR) (Not Detectd) Influenza Type A RNA (Not Detectd) Influenza Type B (PCR) (Not Detectd) 12/26/21 12/26/21 12/26/21 Range/Units 07:41 07:41 08:15 WBC (3.8-10.6) k/uL RBC (4.30-5.90) m/uL Hgb (13.0-17.5) gm/dL Hct (39.0-53.0) % MCV (80.0-100.0) fL MCH (25.0-35.0) pg MCHC (31.0-37.0) g/dL RDW (11.5-15.5) % Plt Count (150-450) k/uL MPV Neutrophils % % Lymphocytes % % Monocytes % % Eosinophils % % Basophils % % Neutrophils # (1.3-7.7) k/uL Lymphocytes # (1.0-4.8) k/uL Monocytes # (0-1.0) k/uL Eosinophils # (0-0.7) k/uL Basophils # (0-0.2) k/uL PT (9.0-12.0) sec INR (<1.2) APTT (22.0-30.0) sec D-Dimer (<0.60) mg/L FEU Sodium (137-145) mmol/L Potassium (3.5-5.1) mmol/L Chloride (98-107) mmol/L Carbon Dioxide (22-30) mmol/L Anion Gap mmol/L BUN (9-20) mg/dL Creatinine (0.66-1.25) mg/dL Est GFR (CKD-EPI)AfAm (>60 ml/min/1.73 sqM) Est GFR (CKD-EPI)NonAf (>60 ml/min/1.73 sqM) Glucose (74-99) mg/dL Lactic Ac Sepsis Rflx Y Plasma Lactic Acid Azam (0.7-2.0) mmol/L Calcium (8.4-10.2) mg/dL Magnesium (1.6-2.3) mg/dL Total Bilirubin (0.2-1.3) mg/dL AST (17-59) U/L ALT (4-49) U/L Alkaline Phosphatase (38-126) U/L Troponin I (0.000-0.034) ng/mL NT-Pro-B Natriuret Pep pg/mL Total Protein (6.3-8.2) g/dL Albumin (3.5-5.0) g/dL Serum Alcohol mg/dL Coronavirus (PCR) Not Detected (Not Detectd) Influenza Type A RNA Not Detected (Not Detectd) Influenza Type B (PCR) Not Detected (Not Detectd) 12/26/21 Range/Units 11:14 WBC (3.8-10.6) k/uL RBC (4.30-5.90) m/uL Hgb (13.0-17.5) gm/dL Hct (39.0-53.0) % MCV (80.0-100.0) fL MCH (25.0-35.0) pg MCHC (31.0-37.0) g/dL RDW (11.5-15.5) % Plt Count (150-450) k/uL MPV Neutrophils % % Lymphocytes % % Monocytes % % Eosinophils % % Basophils % % Neutrophils # (1.3-7.7) k/uL Lymphocytes # (1.0-4.8) k/uL Monocytes # (0-1.0) k/uL Eosinophils # (0-0.7) k/uL Basophils # (0-0.2) k/uL PT (9.0-12.0) sec INR (<1.2) APTT (22.0-30.0) sec D-Dimer (<0.60) mg/L FEU Sodium (137-145) mmol/L Potassium (3.5-5.1) mmol/L Chloride (98-107) mmol/L Carbon Dioxide (22-30) mmol/L Anion Gap mmol/L BUN (9-20) mg/dL Creatinine (0.66-1.25) mg/dL Est GFR (CKD-EPI)AfAm (>60 ml/min/1.73 sqM) Est GFR (CKD-EPI)NonAf (>60 ml/min/1.73 sqM) Glucose (74-99) mg/dL Lactic Ac Sepsis Rflx Plasma Lactic Acid Azam 5.6 H* (0.7-2.0) mmol/L Calcium (8.4-10.2) mg/dL Magnesium (1.6-2.3) mg/dL Total Bilirubin (0.2-1.3) mg/dL AST (17-59) U/L ALT (4-49) U/L Alkaline Phosphatase (38-126) U/L Troponin I (0.000-0.034) ng/mL NT-Pro-B Natriuret Pep pg/mL Total Protein (6.3-8.2) g/dL Albumin (3.5-5.0) g/dL Serum Alcohol mg/dL Coronavirus (PCR) (Not Detectd) Influenza Type A RNA (Not Detectd) Influenza Type B (PCR) (Not Detectd) - Radiology Data Radiology results: report reviewed (CT angios of the chest shows no pulmonary embolism. No acute pulmonary process ), image reviewed (Chest x-ray shows cardiomegaly) Disposition Clinical Impression: Lactic acidosis, Alcohol intoxication, Dyspnea Disposition: ADMITTED IP TO THIS HOSP Is patient prescribed a controlled substance at d/c from ED?: No Referrals: Ghada Albarado MD [Primary Care Provider] - 1-2 days Time of Disposition: 11:52
--- NOTE | 2021-12-26 07:59 | XR ---
EXAMINATION TYPE: XR chest 2V DATE OF EXAM: 12/26/2021 COMPARISON: Chest x-ray 2 days ago. HISTORY: Chest pain. TECHNIQUE: Frontal and lateral views of the chest are obtained. FINDINGS: There is no suspicious focal air space opacity, pleural effusion, or pneumothorax seen. Ca rdiomegaly redemonstrated. Overlying EKG leads again seen. The osseous structures are intact. IMPRESSION: Cardiomegaly without acute pulmonary process. No significant change from prior.
[2021-12-26 08:10] LABS: Basophils % (A) 0 %; Eosinophils % (A) 1 %; HCT 50.7 % (39.0-53.0); HGB 17.2 gm/dL (13.0-17.5); Lymphocytes # (A) 0.8 k/uL (1.0-4.8); Lymphocytes % (A) 12 %; MCH 33.1 pg (25.0-35.0); MCHC 33.9 g/dL (31.0-37.0); MCV 97.7 fL (80.0-100.0); Mean Platelet Volume 7.4; Monocytes # (A) 0.3 k/uL (0-1.0); Monocytes % (A) 4 %; Neutrophils # (A) 5.3 k/uL (1.3-7.7); Neutrophils % (A) 81 %; Platelet Count 139 k/uL (150-450); RBC 5.19 m/uL (4.30-5.90); RDW 14.8 % (11.5-15.5); WBC 6.5 k/uL (3.8-10.6)
[2021-12-26 08:12] LABS: ALT 44 U/L (4-49); AST 68 U/L (17-59); African American GFR (CKD) >90 (>60 ml/min/1.73 sqM); Albumin 4.9 g/dL (3.5-5.0); Alkaline Phosphatase 96 U/L (38-126); Anion Gap 22 mmol/L; Blood Urea Nitrogen 13 mg/dL (9-20); Calcium 8.6 mg/dL (8.4-10.2); Carbon Dioxide 15 mmol/L (22-30); Chloride 96 mmol/L (98-107); Glucose 92 mg/dL (74-99); Magnesium 1.7 mg/dL (1.6-2.3); Non-African American GFR(CKD) >90 (>60 ml/min/1.73 sqM); Potassium 4.3 mmol/L (3.5-5.1); Sodium 133 mmol/L (137-145); Total Bilirubin 1.9 mg/dL (0.2-1.3); Total Protein 8.3 g/dL (6.3-8.2)
[2021-12-26 08:15] LABS: Alcohol 218 mg/dL
[2021-12-26 08:22] LABS: INR 0.9 (<1.2); Partial Thromboplastin Time 22.5 sec (22.0-30.0); Prothrombin Time 9.9 sec (9.0-12.0)
--- NOTE | 2021-12-26 10:28 | CT ---
EXAMINATION TYPE: CT angio chest DATE OF EXAM: 12/26/2021 COMPARISON: CTA chest July 18, 2021 HISTORY: chest pain, SOB, history of PE CT DLP: 392.2 mGycm. Automated Exposure Control for Dose Reduction was Utilized. CONTRAST: CTA scan of the thorax is performed with IV Contrast, patient injected with 100 mL of Isovue 370, pul monary embolism protocol. MIP Images are created on CT scanner and reviewed. FINDINGS: LUNGS: The lungs remain grossly clear, there is no concerning parenchymal mass or nodule identified. There is no pleural effusion or pneumothorax seen. The tracheobronchial tree is patent. MEDIASTINUM: There is satisfactory enhancement of the pulmonary artery and its branches, there is no CT evidence for pulmonary embolism. There are no greater than 1 cm hilar or mediastinal lymph nodes. No cardiomegaly or pericardial effusion is seen. Satisfactory enhancement of the thoracic aorta wi thout dissection. Stable roughly 4.2 cm ascending aortic aneurysm. Prominent right pulmonary artery s uggests underlying pulmonary artery hypertension. Persistent 2.2 cm hypodense nodule in the thyroid i sthmus coronal image 86. Advise nonurgent ultrasound follow-up to further evaluate and/or characteriz e if this is not known finding. OTHER: Left greater than right flank shaped subareolar gynecomastia redemonstrated. Visualized liver markedly hypodense consistent with diffuse fatty infiltration. IMPRESSION: No CT evidence for acute pulmonary embolism. No suspicious new acute pulmonary process.
[2021-12-26] MEDS ORDERED: ONDANSETRON 4 MG/2 ML VIAL IVP STA (11:19)
[2021-12-26] MEDS ORDERED: LORazepam 2 MG/ML INJ IV PRN (11:53)
[2021-12-26] MEDS ORDERED: ONDANSETRON 4 MG/2 ML VIAL IVP PRN (11:54)
[2021-12-26] MEDS ORDERED: NALOXONE 0.4 MG/ML 1 ML VIAL IV PRN (11:54)
[2021-12-26] MEDS ORDERED: SODIUM CHLORIDE 0.9% 500 ML 500 ML IV STA (11:55)
[2021-12-26] MEDS ORDERED: SODIUM CHLORIDE 0.9% 1,000 ML IV STA (11:55)
[2021-12-26] MEDS ORDERED: IPRATROPIUM-ALBUTEROL 3 ML NEB INHALATION STA (11:57)
[2021-12-26] MEDS ORDERED: METOPROLOL TARTRATE 25 MG TAB PO STA (12:20)
[2021-12-26] MEDS: DEXTROSE 5%-0.45% NACL 1,000 ML IV SCH (12:29)
[2021-12-26] MEDS: SODIUM CHLORIDE 0.9% 1,000 ML IV SCH (12:30)
[2021-12-26] MEDS: LORazepam 2 MG/ML INJ IV PRN ×4 (12:34→19:02)
[2021-12-26] MEDS ORDERED: THIAMINE 100 MG TAB PO SCH (17:30)
[2021-12-26] MEDS: THIAMINE 100 MG TAB PO SCH (18:13)
[2021-12-26] MEDS: METOPROLOL TARTRATE 25 MG TAB PO SCH (20:52)
[2021-12-26] MEDS: FAMOTIDINE 20 MG TAB PO SCH (20:52)
[2021-12-27] MEDS: SODIUM CHLORIDE 0.9% 1,000 ML IV SCH ×2 (02:55→15:16)
[2021-12-27] MEDS: THIAMINE 100 MG TAB PO SCH ×2 (06:40→16:49)
[2021-12-27 08:50] LABS: African American GFR (CKD) >90 (>60 ml/min/1.73 sqM); Anion Gap 12 mmol/L; Blood Urea Nitrogen 13 mg/dL (9-20); Calcium 8.4 mg/dL (8.4-10.2); Carbon Dioxide 21 mmol/L (22-30); Chloride 100 mmol/L (98-107); Glucose 130 mg/dL (74-99); Non-African American GFR(CKD) >90 (>60 ml/min/1.73 sqM); Potassium 3.8 mmol/L (3.5-5.1); Sodium 133 mmol/L (137-145)
[2021-12-27] MEDS: MAGNESIUM OXIDE 400 MG TAB PO SCH (08:54)
[2021-12-27] MEDS: MULTIVITAMINS, THERA 1 EACH TAB PO SCH (08:54)
[2021-12-27] MEDS: METOPROLOL TARTRATE 25 MG TAB PO SCH ×2 (08:54→20:26)
[2021-12-27] MEDS: RIVAROXABAN 20 MG TAB PO SCH (08:54)
[2021-12-27] MEDS: FAMOTIDINE 20 MG TAB PO SCH ×2 (08:54→20:26)
[2021-12-27] MEDS: PANTOPRAZOLE 40 MG/10 ML VIAL IV SCH (08:54)
[2021-12-27 09:07] LABS: Basophils % (A) 1 %; Eosinophils # (A) 0.1 k/uL (0-0.7); Eosinophils % (A) 2 %; HCT 45.9 % (39.0-53.0); HGB 15.4 gm/dL (13.0-17.5); Lymphocytes # (A) 0.8 k/uL (1.0-4.8); Lymphocytes % (A) 18 %; MCH 33.2 pg (25.0-35.0); MCHC 33.5 g/dL (31.0-37.0); MCV 99.4 fL (80.0-100.0); Macrocytosis Slight; Mean Platelet Volume 8.2; Monocytes # (A) 0.2 k/uL (0-1.0); Monocytes % (A) 5 %; Neutrophils # (A) 3.2 k/uL (1.3-7.7); Neutrophils % (A) 74 %; Platelet Count 100 k/uL (150-450); RBC 4.62 m/uL (4.30-5.90); RDW 14.7 % (11.5-15.5); WBC 4.3 k/uL (3.8-10.6)
[2021-12-27] MEDS: DEXTROSE 5%-0.45% NACL 1,000 ML IV SCH (15:15)
--- NOTE | 2021-12-27 20:02 | P.HPIM ---
History of Present Illness H&P Date: 12/26/21 Chief Complaint: Shortness of breath 61-year-old male with history of atrial fibrillation, DVT/PE, sleep apnea and alcoholic liver disease/EtOH abuse, presenting to the emergency department with concerns with difficulty breathing. Onset of symptoms was several days ago. No cough. No fever. No chest pain. Patient does have some leg swelling. Dyspnea does worsen with exertion. No orthopnea. No history of similar symptoms previously. Patient is still taking his Xarelto. Workup in ED reveals WBC of 6.5, hemoglobin 17.2, platelet count of 139, sodium 133, potassium 4.3, BUN/creatinine of 13/0.79 and blood glucose of 92; serum alcohol of 218, AST 68 and total bilirubin being off 1.9; d-dimer is elevated at 1.14 EKG Findings:: Sinus tachycardia 109. WA 136. QRS 86. QT 312. QTC 376. Normal axis. Normal QRS. No acute ST change. CT angiography completed is negative for PE; chest x-ray shows cardiomegaly Patient is admitted for alcohol intoxication/withdrawal, lactic acidosis and dyspnea Review of Systems REVIEW OF SYSTEMS: CONSTITUTIONAL: No fever, no malaise, no fatigue. HEENT: No recent visual problems or hearing problems. Denied any sore throat. CARDIOVASCULAR: No chest pain, orthopnea, PND, no palpitations, no syncope. PULMONARY: No shortness of breath, no cough, no hemoptysis. GASTROINTESTINAL: No diarrhea, no nausea, no vomiting, no abdominal pain. NEUROLOGICAL: No headaches, no weakness, no numbness. HEMATOLOGICAL: Denies any bleeding or petechiae. GENITOURINARY: Denies any burning micturition, frequency, or urgency. MUSCULOSKELETAL/RHEUMATOLOGICAL: Denies any joint pain, swelling, or any muscle pain. ENDOCRINE: Denies any polyuria or polydipsia. The rest of the 14-point review of systems is negative. Past Medical History Past Medical History: Atrial Fibrillation, Deep Vein Thrombosis (DVT), GERD/Reflux, Liver Disease, Osteoarthritis (OA), Pulmonary Embolus (PE), Sleep Apnea/CPAP/BIPAP Additional Past Medical History / Comment(s): ETOH abuse, alcoholic hepatitis, hepatic steatosis, chronic encephalopathy, thrombocytopenia, 03/2020 fall with brain bleed-transferred from [facility] to [facility]-pt states he still has chronic headaches, chronic low back pain, past DVT R leg and PEs-laterallity unknown, SOB with exertion, bilateral lower leg discolored/edematous. History of Any Multi-Drug Resistant Organisms: MRSA Date of last positivie culture/infection: 2006 MDRO Source:: unk Past Surgical History: Orthopedic Surgery Additional Past Surgical History / Comment(s): Left hand tendon surgery, EGD Past Anesthesia/Blood Transfusion Reactions: No Reported Reaction Past Psychological History: Anxiety, Depression Smoking Status: Current every day smoker Past Alcohol Use History: Abuse Past Drug Use History: None Reported - Past Family History Mother Family Medical History: AFIB Additional Family Medical History / Comment(s): Mother is 81 yrs old. Father Family Medical History: Cancer Additional Family Medical History / Comment(s): Pt believes his father passed from lung cancer. He was a smoker. Medications and Allergies Home Medications Medication Instructions Recorded Confirmed Type Rivaroxaban [Xarelto] 20 mg PO DAILY 03/24/21 12/26/21 History Famotidine [Pepcid] 20 mg PO BID 30 Days #60 tab 11/07/21 12/26/21 Rx Magnesium Oxide [Mag-Ox] 400 mg PO DAILY #30 tab 11/07/21 12/26/21 Rx Metoprolol Tartrate [Lopressor] 25 mg PO BID #60 tab 11/07/21 12/26/21 Rx Thiamine [Vitamin B-1] 100 mg PO BID-W/MEALS #60 tab 11/07/21 12/26/21 Rx Allergies Allergy/AdvReac Type Severity Reaction Status Date / Time Penicillins Allergy Mild Rash/Hives Verified 12/26/21 09:01 Physical Exam Vitals: Vital Signs Temp Pulse Resp BP Pulse Ox 12/26/21 13:47 98 12/26/21 13:39 97 12/26/21 12:00 94 18 151/101 95 12/26/21 07:35 20 12/26/21 07:31 97.9 F 120 H 18 159/108 97 Intake and Output 12/25/21 12/26/21 12/26/21 22:59 06:59 14:59 Other: Weight 113.398 kg - Constitutional General appearance: Present: average body habitus, cooperative, no acute dis tress - EENT Eyes: Present: anicteric sclerae, EOMI, PERRLA, normal appearance ENT: Present: hearing grossly normal, normal oropharynx Ears: bilateral: normal - Neck Neck: Present: normal ROM. Absent: lymphadenopathy, rigidity, thyromegaly Carotids: negative: bruit present Thyroid: bilateral: normal size, negative: enlarged, nodule - Respiratory Respiratory: bilateral: CTA, negative: rales, rhonchi, wheezing - Cardiovascular Rhythm: regular Heart sounds: normal: S1, S2 Abnormal Heart Sounds: Absent: systolic murmur, diastolic murmur - Gastrointestinal General gastrointestinal: Present: normal bowel sounds, soft. Absent: distended, organomegaly, tenderness - Genitourinary Genitourinary Comment(s): deferred - Integumentary Integumentary: Present: normal turgor. Absent: jaundiced, rash, ulcer - Neurologic Neurologic: Present: CNII-XII intact. Absent: focal deficits - Musculoskeletal Musculoskeletal: Present: gait normal, strength equal bilaterally - Psychiatric Psychiatric: Present: A&O x's 3, appropriate affect, intact judgment & insight Results CBC & Chem 7: 12/27/21 07:55 12/27/21 07:55 Labs: Abnormal Lab Results - Last 24 Hours (Table) 12/26/21 12/26/21 12/26/21 Range/Units 07:41 07:41 07:41 Plt Count 139 L (150-450) k/uL Lymphocytes # 0.8 L (1.0-4.8) k/uL D-Dimer 1.14 H (<0.60) mg/L FEU Sodium 133 L (137-145) mmol/L Chloride 96 L (98-107) mmol/L Carbon Dioxide 15 L (22-30) mmol/L Plasma Lactic Acid Azam (0.7-2.0) mmol/L Total Bilirubin 1.9 H (0.2-1.3) mg/dL AST 68 H (17-59) U/L Total Protein 8.3 H (6.3-8.2) g/dL Serum Alcohol 218 H* mg/dL 12/26/21 12/26/21 Range/Units 07:41 11:14 Plt Count (150-450) k/uL Lymphocytes # (1.0-4.8) k/uL D-Dimer (<0.60) mg/L FEU Sodium (137-145) mmol/L Chloride (98-107) mmol/L Carbon Dioxide (22-30) mmol/L Plasma Lactic Acid Zaam 4.7 H* 5.6 H* (0.7-2.0) mmol/L Total Bilirubin (0.2-1.3) mg/dL AST (17-59) U/L Total Protein (6.3-8.2) g/dL Serum Alcohol mg/dL Assessment and Plan Assessment: 1. Alcohol intoxication/pending withdrawal; - Patient placed on IV fluid hydration with D5 half-normal saline; continue with thiamine and folic acid; Protonix 40 mg IV daily - Consult social work for discharge planning and outpatient resources 2. Lactic acidosis; likely related to EtOH intoxication; continue with IV fluids; we will monitor lactic acid levels 3. Dyspnea; chest x-ray and CTA chest unremarkable; patient is saturating above 95% on room 4. Atrial fibrillation; rate controlled on metoprolol 25 mg twice a day; anticoagulated with Xarelto 20 mg daily 5. Hypertension; metoprolol 25 mg twice a day DVT prophylaxis; SCDs/systemic anticoagulation CODE STATUS; full code
--- NOTE | 2021-12-27 20:04 | P.PN ---
Subjective Progress Note Date: 12/27/21 Principal diagnosis: Alcohol intoxication/pending withdrawal Lactic acidosis Dyspnea 61-year-old male with history of atrial fibrillation, DVT/PE, sleep apnea and alcoholic liver disease/EtOH abuse, presenting to the emergency department with concerns with difficulty breathing. Onset of symptoms was several days ago. No cough. No fever. No chest pain. Patient does have some leg swelling. Dyspnea does worsen with exertion. No orthopnea. No history of similar symptoms previously. Patient is still taking his Xarelto. Workup in ED reveals WBC of 6.5, hemoglobin 17.2, platelet count of 139, sodium 133, potassium 4.3, BUN/creatinine of 13/0.79 and blood glucose of 92; serum alcohol of 218, AST 68 and total bilirubin being off 1.9; d-dimer is elevated at 1.14 EKG Findings:: Sinus tachycardia 109. ME 136. QRS 86. QT 312. QTC 376. Normal axis. Normal QRS. No acute ST change. CT angiography completed is negative for PE; chest x-ray shows cardiomegaly Patient is admitted for alcohol intoxication/withdrawal, lactic acidosis and dyspnea Objective - Vital Signs Vital signs: Vital Signs Temp 98.7 F 12/27/21 16:46 Pulse 76 12/27/21 16:46 Resp 18 12/27/21 16:46 BP 152/96 12/27/21 16:46 Pulse Ox 97 12/27/21 16:46 Intake & Output 12/27/21 12/27/21 12/28/21 06:59 18:59 06:59 Intake Total 475 360 Output Total 475 Balance 475 -115 Intake: Intake, IV Titration 475 Amount Dextrose 5%-0.45% NaCl 1, 100 000 ml @ 20 mls/hr IV . Q24H JERO Rx#:[id number] Sodium Chloride 0.9% 1, 375 000 ml @ 75 mls/hr IV . [id number] JERO Rx#:[id number] Oral 360 Output: Urine 475 Other: Voiding Method Urinal # Voids 1 1 # Bowel Movements 1 - Exam - Constitutional General appearance: Present: average body habitus, cooperative, no acute distress - EENT Eyes: Present: anicteric sclerae, EOMI, PERRLA, normal appearance ENT: Present: hearing grossly normal, normal oropharynx Ears: bilateral: normal - Neck Neck: Present: normal ROM. Absent: lymphadenopathy, rigidity, thyromegaly Carotids: negative: bruit present Thyroid: bilateral: normal size, negative: enlarged, nodule - Respiratory Respiratory: bilateral: CTA, negative: rales, rhonchi, wheezing - Cardiovascular Rhythm: regular Heart sounds: normal: S1, S2 Abnormal Heart Sounds: Absent: systolic murmur, diastolic murmur - Gastrointestinal General gastrointestinal: Present: normal bowel sounds, soft. Absent: distended, organomegaly, tenderness - Genitourinary Genitourinary Comment(s): deferred - Integumentary Integumentary: Present: normal turgor. Absent: jaundiced, rash, ulcer - Neurologic Neurologic: Present: CNII-XII intact. Absent: focal deficits - Musculoskeletal Musculoskeletal: Present: gait normal, strength equal bilaterally - Psychiatric Psychiatric: Present: A&O x's 3, appropriate affect, intact judgment & insight - Labs CBC & Chem 7: 12/27/21 07:55 12/27/21 07:55 Labs: Abnormal Lab Results - Last 24 Hours (Table) 12/27/21 12/27/21 Range/Units 07:55 07:55 Plt Count 100 L (150-450) k/uL Lymphocytes # 0.8 L (1.0-4.8) k/uL Sodium 133 L (137-145) mmol/L Carbon Dioxide 21 L (22-30) mmol/L Glucose 130 H (74-99) mg/dL Assessment and Plan Assessment: 1. Alcohol intoxication/pending withdrawal; - Patient placed on IV fluid hydration with D5 half-normal saline; continue with thiamine and folic acid; Protonix 40 mg IV daily - Consult social work for discharge planning and outpatient resources 2. Lactic acidosis; likely related to EtOH intoxication; continue with IV fluids; we will monitor lactic acid levels 3. Dyspnea; chest x-ray and CTA chest unremarkable; patient is saturating above 95% on room 4. Atrial fibrillation; rate controlled on metoprolol 25 mg twice a day; anticoagulated with Xarelto 20 mg daily 5. Hypertension; metoprolol 25 mg twice a day DVT prophylaxis; SCDs/systemic anticoagulation CODE STATUS; full code
[2021-12-28] MEDS: SODIUM CHLORIDE 0.9% 1,000 ML IV SCH ×2 (04:15→14:35)
[2021-12-28] MEDS: THIAMINE 100 MG TAB PO SCH ×2 (06:39→16:38)
[2021-12-28 06:40] LABS: African American GFR (CKD) >90 (>60 ml/min/1.73 sqM); Anion Gap 6 mmol/L; Blood Urea Nitrogen 10 mg/dL (9-20); Calcium 8.1 mg/dL (8.4-10.2); Carbon Dioxide 24 mmol/L (22-30); Chloride 103 mmol/L (98-107); Glucose 108 mg/dL (74-99); Non-African American GFR(CKD) >90 (>60 ml/min/1.73 sqM); Potassium 3.6 mmol/L (3.5-5.1); Sodium 133 mmol/L (137-145)
[2021-12-28] MEDS: MULTIVITAMINS, THERA 1 EACH TAB PO SCH (09:16)
[2021-12-28] MEDS: RIVAROXABAN 20 MG TAB PO SCH (09:16)
[2021-12-28] MEDS: METOPROLOL TARTRATE 25 MG TAB PO SCH ×2 (09:16→20:23)
[2021-12-28] MEDS: MAGNESIUM OXIDE 400 MG TAB PO SCH (09:16)
[2021-12-28] MEDS: PANTOPRAZOLE 40 MG/10 ML VIAL IV SCH (09:16)
[2021-12-28] MEDS: FAMOTIDINE 20 MG TAB PO SCH ×2 (09:16→20:23)
[2021-12-28] MEDS ORDERED: MAGNESIUM SULFATE-D5W PMX 1 GM in DEXTROSE/WATER 1 100ML.BAG IVPB ONE (11:39)
[2021-12-28 13:01] LABS: Magnesium 1.6 mg/dL (1.6-2.3)
[2021-12-28] MEDS: DEXTROSE 5%-0.45% NACL 1,000 ML IV SCH ×2 (13:12→14:34)
[2021-12-28] MEDS: POTASSIUM CHLORIDE 10 MEQ in WATER FOR INJECTION 1 100ML.BAG IVPB SCH ×2 (14:28→16:16)
[2021-12-29] MEDS: SODIUM CHLORIDE 0.9% 1,000 ML IV SCH (06:59)
[2021-12-29] MEDS: THIAMINE 100 MG TAB PO SCH ×2 (07:01→17:40)
[2021-12-29] MEDS: MULTIVITAMINS, THERA 1 EACH TAB PO SCH (08:36)
[2021-12-29] MEDS: METOPROLOL TARTRATE 25 MG TAB PO SCH ×2 (08:36→20:27)
[2021-12-29] MEDS: MAGNESIUM OXIDE 400 MG TAB PO SCH (08:36)
[2021-12-29] MEDS: PANTOPRAZOLE 40 MG/10 ML VIAL IV SCH (08:36)
[2021-12-29] MEDS: FAMOTIDINE 20 MG TAB PO SCH ×2 (08:36→20:27)
[2021-12-29] MEDS: RIVAROXABAN 20 MG TAB PO SCH (08:36)
[2021-12-29 11:25] LABS: Basophils % (A) 0 %; Eosinophils # (A) 0.1 k/uL (0-0.7); Eosinophils % (A) 3 %; HCT 43.4 % (39.0-53.0); HGB 14.7 gm/dL (13.0-17.5); Lymphocytes # (A) 0.6 k/uL (1.0-4.8); Lymphocytes % (A) 21 %; MCH 33.8 pg (25.0-35.0); MCV 99.6 fL (80.0-100.0); Macrocytosis Slight; Mean Platelet Volume 8.6; Monocytes # (A) 0.3 k/uL (0-1.0); Monocytes % (A) 9 %; Neutrophils # (A) 1.9 k/uL (1.3-7.7); Neutrophils % (A) 64 %; RBC 4.36 m/uL (4.30-5.90); RDW 14.4 % (11.5-15.5)
[2021-12-29 11:35] LABS: African American GFR (CKD) >90 (>60 ml/min/1.73 sqM); Anion Gap 5 mmol/L; Blood Urea Nitrogen 7 mg/dL (9-20); Calcium 8.3 mg/dL (8.4-10.2); Carbon Dioxide 24 mmol/L (22-30); Chloride 105 mmol/L (98-107); Glucose 113 mg/dL (74-99); Magnesium 1.8 mg/dL (1.6-2.3); Non-African American GFR(CKD) >90 (>60 ml/min/1.73 sqM); Sodium 134 mmol/L (137-145)
--- NOTE | 2021-12-29 11:52 | P.CRDCN ---
History of Present Illness Consult date: 12/29/21 History of present illness: HISTORY OF PRESENT ILLNESS: This is a 61-year-old male with a past medical history significant for PE/DVT on Xarelto, nicotine dependence, alcohol abuse, and paroxysmal atrial fibrillation (recently diagnosed in October 2021). 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 We have been asked to see the patient in consultation for nonsustained ventricular tachycardia. Patient examined at the bedside. The patient currently presented to the hospital with a chief complaint of shortness of breath. The patient was found to be acutely intoxicated with an alcohol level of 218. The patient currently denies any chest pain or pressure. He denies any shortness of breath. Telemetry reviewed with a isolated short run of nonsustained ventricular tachycardia. * EKG reveals sinus tachycardia * Chest xray cardiomegaly without acute pulmonary process. No significant change from prior. * Laboratory data: WBC 3.0. Hemoglobin 14.7. Platelet count 100. Sodium 134. Potassium 4.0. BUN 7. Creatinine 0.61. Magnesium 1.8. Troponin negative 1. * Current home cardiac medications include Xarelto 20 mg daily, metoprolol t artrate 25 mg twice a day * Most recent echocardiogram obtained in December 2021 revealed ejection fraction 55-60%, trace to mild aortic regurgitation, mild MR, mild TR REVIEW OF SYSTEMS: At the time of my exam: CONSTITUTIONAL: Denies fever or chills. HEENT: Denies blurred vision, vision changes, or eye pain. Denies hemoptysis CARDIOVASCULAR: Denies chest pain. Denies orthopnea. Denies PND. Denies palpitations RESPIRATORY: Denies shortness of breath. GASTROINTESTINAL: Denies abdominal pain. Denies nausea or vomiting. HEMATOLOGIC: Denies bleeding disorders. GENITOURINARY: Denies any blood in urine. SKIN: Denies pruitis. Denies rash. PHYSICAL EXAM: VITAL SIGNS: Reviewed. GENERAL: Well-developed in no acute distress. HEENT: Head is normocephalic. Pupils are equal, round. Sclerae anicteric. Mucous membranes of the mouth are moist. Neck supple. No JVD or thyromegaly LUNGS: Respirations even and unlabored. Lungs essentially clear to auscultation bilaterally. HEART: Regular rate and rhythm. S1 and S2 heard. ABDOMEN: Soft. Nondistended. Nontender. EXTREMITIES: Normal range of motion. No clubbing or cyanosis. Peripheral pulses intact. No lower extremity edema NEUROLOGIC: Awake and alert. Oriented x 3. ASSESSMENT: Shortness of breath Acute alcohol intoxication Nonsustained ventricular tachycardia Paroxysmal atrial fibrillation History of DVT/PE Nicotine dependence Alcohol abuse History of medication noncompliance PLAN: Continue current cardiac medications Continue telemetry monitoring Continue to monitor electrolytes Check TSH Recommend abstinence from alcohol No further inpatient recommendations from a cardiac standpoint. The patient may be discharged home from a cardiac perspective. We will sign off. Please reconsult if needed. Nurse practitioner note has been reviewed by physician. Signing provider agrees with the documented findings, assessment, and plan of care. Past Medical History Past Medical History: Atrial Fibrillation, Deep Vein Thrombosis (DVT), GERD/Reflux, Liver Disease, Osteoarthritis (OA), Pulmonary Embolus (PE), Sleep Apnea/CPAP/BIPAP Additional Past Medical History / Comment(s): ETOH abuse, alcoholic hepatitis, hepatic steatosis, chronic encephalopathy, thrombocytopenia, 03/2020 fall with brain bleed-transferred from [facility] to [facility]-pt states he still has chronic headaches, chronic low back pain, past DVT R leg and PEs-laterallity unknown, SOB with exertion, bilateral lower leg discolored/edematous. History of Any Multi-Drug Resistant Organisms: MRSA Date of last positivie culture/infection: 2006 MDRO Source:: unk Past Surgical History: Orthopedic Surgery Additional Past Surgical History / Comment(s): Left hand tendon surgery, EGD Past Anesthesia/Blood Transfusion Reactions: No Reported Reaction Past Psychological History: Anxiety, Depression Smoking Status: Current every day smoker Past Alcohol Use History: Abuse Past Drug Use History: None Reported - Past Family History Mother Family Medical History: AFIB Additional Family Medical History / Comment(s): Mother is 81 yrs old. Father Family Medical History: Cancer Additional Family Medical History / Comment(s): Pt believes his father passed from lung cancer. He was a smoker. Medications and Allergies Home Medications Medication Instructions Recorded Confirmed Type Rivaroxaban [Xarelto] 20 mg PO DAILY 03/24/21 12/26/21 History Famotidine [Pepcid] 20 mg PO BID 30 Days #60 tab 11/07/21 12/26/21 Rx Magnesium Oxide [Mag-Ox] 400 mg PO DAILY #30 tab 11/07/21 12/26/21 Rx Metoprolol Tartrate [Lopressor] 25 mg PO BID #60 tab 11/07/21 12/26/21 Rx Thiamine [Vitamin B-1] 100 mg PO BID-W/MEALS #60 tab 11/07/21 12/26/21 Rx Allergies Allergy/AdvReac Type Severity Reaction Status Date / Time Penicillins Allergy Mild Rash/Hives Verified 12/26/21 09:01 Physical Exam Vitals: Vital Signs Temp Pulse Resp BP Pulse Ox 12/29/21 04:00 98.1 F 58 L 16 131/86 96 12/29/21 02:00 59 L 16 12/28/21 23:45 98.3 F 59 L 16 116/75 97 12/28/21 20:00 97.9 F 64 16 134/84 97 12/28/21 17:17 98.2 F 66 18 133/93 96 12/28/21 15:41 57 L 18 12/28/21 11:29 57 L 18 149/83 97 12/28/21 09:15 98.2 F 61 18 134/88 95 Intake and Output 12/28/21 12/29/21 12/29/21 22:59 06:59 14:59 Intake Total 180 118 Output Total 650 1000 425 Balance -470 1000 -307 Intake: Oral 180 118 Output: Urine 650 1000 425 Other: Voiding Method Urinal Urinal Results 12/29/21 11:04 12/29/21 11:04 Cardiac Enzymes 12/28/21 Range/Units 11:48 Troponin I <0.012 (0.000-0.034) ng/mL Comprehensive Metabolic Panel 12/28/21 Range/Units 06:04 Sodium 133 L (137-145) mmol/L Potassium 3.6 (3.5-5.1) mmol/L Chloride 103 (98-107) mmol/L Carbon Dioxide 24 (22-30) mmol/L BUN 10 (9-20) mg/dL Creatinine 0.59 L (0.66-1.25) mg/dL Glucose 108 H (74-99) mg/dL Calcium 8.1 L (8.4-10.2) mg/dL Current Medications Generic Name Dose Route Start Last Admin Trade Name Freq PRN Reason Stop Dose Admin Famotidine 20 mg 12/26/21 21:00 04/17/22 20:23 Famotidine 20 Mg Tab PO 20 mg BID JERO Administration Dextrose/Sodium Chloride 1,000 mls @ 20 mls/hr 12/26/21 12:00 12/28/21 14:34 Dextrose 5%-1/2ns Iv Soln IV 20 mls/hr .Q24H JERO Administration Sodium Chloride 1,000 mls @ 75 mls/hr 12/26/21 12:00 12/29/21 06:59 Saline 0.9% IV 75 mls/hr .[id number] JERO Administration Lorazepam 1 mg 12/26/21 11:53 12/26/21 17:03 Lorazepam 2 Mg/Ml Inj IV 1 mg Q2HR PRN Administration CIWA 8 or 9 Lorazepam 1 mg 12/26/21 11:53 12/26/21 19:02 Lorazepam 2 Mg/Ml Inj IV 1 mg Q1HR PRN Administration CIWA 10 to 15 Magnesium Oxide 400 mg 12/27/21 09:00 12/28/21 09:16 Magnesium Oxide 400 Mg Tab PO 400 mg DAILY JERO Administration Metoprolol Tartrate 25 mg 12/26/21 21:00 12/28/21 20:23 Metoprolol Tartrate 25 Mg Tab PO 25 mg BID JERO Administration Multivitamins 1 each 12/27/21 09:00 12/28/21 09:16 Multivitamins, Thera 1 Each Tab PO 1 each DAILY JERO Administration Naloxone HCl 0.2 mg 12/26/21 11:54 Naloxone 0.4 Mg/Ml 1 Ml Vial IV Q2M PRN Opioid Reversal Ondansetron HCl 4 mg 12/26/21 11:54 12/26/21 20:52 Ondansetron 4 Mg/2 Ml Vial IVP 4 mg Q8HR PRN Administration Nausea And Vomiting Pantoprazole Sodium 40 mg 12/27/21 09:00 12/28/21 09:16 Pantoprazole 40 Mg/10 Ml Vial IV 40 mg DAILY JERO Administration Rivaroxaban 20 mg 12/27/21 09:00 12/28/21 09:16 Rivaroxaban 20 Mg Tab PO 20 mg DAILY JERO Administration Protocol Thiamine HCl 100 mg 12/26/21 17:30 12/29/21 07:01 Thiamine 100 Mg Tab PO 100 mg BID-W/MEALS JERO Administration Intake and Output 12/28/21 12/29/21 12/29/21 22:59 06:59 14:59 Intake Total 180 118 Output Total 650 1000 425 Balance -470 -1000 -307 Intake: Oral 180 118 Output: Urine 650 1000 425 Other: Voiding Method Urinal Urinal 12/27/21 07:55 12/28/21 06:04
[2021-12-29 12:45] LABS: Platelet Count 84 k/uL (150-450)
[2021-12-29] MEDS: ALBUTEROL HFA INHALER INHALATION SCH ×2 (13:32→20:08)
--- NOTE | 2021-12-29 13:34 | XR ---
EXAMINATION TYPE: XR chest 1V portable DATE OF EXAM: 12/29/2021 COMPARISON: Chest x-ray 12/26/2021 HISTORY: Chest of heart failure TECHNIQUE: Single frontal view of the chest is obtained. FINDINGS: There is no focal air space opacity, pleural effusion, or pneumothorax seen. The cardiac silhouette size is within normal limits. The osseous structures are intact. IMPRESSION: No acute process.
--- NOTE | 2021-12-29 14:13 | PN ---
PROGRESS NOTE DATE OF SERVICE: 12/29/2021 This 61-year-old gentleman admitted with significant alcohol intoxication also complained of shortness of breath. The patient had previous evaluation, including 2D echo and CT angio of the chest, which was reviewed personally. D-dimer was slightly elevated previously. The alcohol level was significantly elevated. The 2D echo done recently showed ejection fraction about 50% to 55%. Past medical history reviewed. REVIEW OF SYSTEMS: CARDIOVASCULAR SYSTEM: No angina, palpitations. RESPIRATORY SYSTEM: As mentioned earlier. GI: As mentioned earlier. : No dysuria. NERVOUS SYSTEM: No numbness, weakness. CURRENT MEDICATIONS: Reviewed. They include Pepcid, Ativan, magnesium oxide. Doses are reviewed. PHYSICAL EXAMINATION: Pulse is 55, blood pressure 148/91, respiration 16, pulse ox 94%. HEENT: Conjunctivae normal. NECK: No jugular venous distention. CARDIOVASCULAR: S1, S2 muffled. RESPIRATION: Breath sounds diminished at the bases. A few scattered rhonchi. ABDOMEN: Soft, nontender. LEGS: No edema. No swelling. NERVOUS SYSTEM: No focal deficit. LABS: Platelets are 84. Sodium 135. The rest of the labs are noted. ASSESSMENT: 1. Acute alcohol intoxication. 2. Shortness of breath for evaluation. 3. Alcohol withdrawal. 4. Lactic acidosis. 5. Atrial fibrillation. 6. Hypertension. 7. Non-sustained ventricular tachycardia. RECOMMENDATIONS AND DISCUSSION: I recommend to continue current medications, continue with the monitoring, symptomatic treatment. The magnesium has been normal. Closely monitor with Cardiology. I would recommend outpatient workup for possible COPD. I would initiate some inhalers on an empiric basis. Otherwise, continue to monitor. Further recommendations to follow. See orders for details. MMODL / IJN: [id number] /
[2021-12-29 17:08] VITALS: BMI 31.2
[2021-12-30] MEDS: THIAMINE 100 MG TAB PO SCH (06:41)
[2021-12-30] MEDS: ALBUTEROL HFA INHALER INHALATION SCH ×2 (07:38→11:28)
[2021-12-30] MEDS: PANTOPRAZOLE 40 MG/10 ML VIAL IV SCH (08:13)
[2021-12-30] MEDS: RIVAROXABAN 20 MG TAB PO SCH (08:13)
[2021-12-30] MEDS: FAMOTIDINE 20 MG TAB PO SCH (08:13)
[2021-12-30] MEDS: MAGNESIUM OXIDE 400 MG TAB PO SCH (08:13)
[2021-12-30] MEDS: MULTIVITAMINS, THERA 1 EACH TAB PO SCH (08:14)
[2021-12-30] MEDS: METOPROLOL TARTRATE 25 MG TAB PO SCH (08:14)
[2021-12-30 11:45] VITALS: BP 130/85; PULSE 60; RESP 16; TEMP 98.3
--- NOTE | 2021-12-30 22:59 | P.DS ---
Providers Date of admission: 12/26/21 11:54 Expected date of discharge: 12/30/21 Attending physician: Fang Romero Primary care physician: Per Urr[place]ia Hospital Course: Final diagnosis Acute alcohol intoxication Shortness of breath for evaluation Alcohol withdrawal Lactic acidosis Possible underlying COPD Atrial fibrillation next line hypertension [place] nonsustained ventricular tachycardia DVT prophylaxis next line GI prophylaxis Full code Discharge disposition Patient is being discharged in a stable condition with guarded prognosis to home. Patient will follow-up with Dr. Albarado in the outpatient setting upon discharge. Patient is to also follow up with cardiology and pulmonary outpatient. Total time taken is greater than 35 minutes. Hospital course This is a 61-year-old male who was recently admitted chest pain and acute alcohol intoxication and was being closely monitored. Patient also with some shortness of breath. Will provide resources for outpatient follow up with Dr. Hills. Patient to continue to avoid smoking and alcohol use and follow up with [facility] about rehab and aa meetings. Patient with shortness of breath with walking to the bathroom and back. continue current medication regimen. Patient to continue with compression stockings. Patient did have elevated d dimer on admission and cta was negative for pe. Patient maintained on CIWA and encouraged to avoid alcohol intake as patient is high risk for multiple hospitalizations and readmissions. Currently no reports of chest pain, shortness of breath, or palpitations. Patient is afebrile. No reports of nausea or vomiting and patient is tolerating diet. Patient will be discharged home today. Guarded prognosis. On exam vital signs are stable. Cardio S1, S2 are muffled. Respiratory system shows diminished breath sounds at the bases with no wheezing or rhonchi noted. Abdomen is soft and obese, and nontender. Nervous system shows no focal deficits. Please refer to medication reconciliation sheet for a list of medications. The impression and plan of care has been dictated by Mariza Alberto, Nurse Practitioner as directed. Dr. Yogi MD I have performed a history and examination and MDM of this patient, discussed the same with the dictator, and agree with the dictator's assessment and plan as written ,documented as a scribe. Based on total visit time, I have performed more than 50% of the visit. Patient Condition at Discharge: Stable Plan - Discharge Summary Discharge Rx Participant: No New Discharge Prescriptions: New Albuterol Inhaler [Ventolin Hfa Inhaler] 2 puff INHALATION RT-TID 30 Days #1 gm Multivitamins, Thera [Multivitamin (formulary)] 1 each PO DAILY #30 tab Continue Metoprolol Tartrate [Lopressor] 25 mg PO BID #60 tab Magnesium Oxide [Mag-Ox] 400 mg PO DAILY #30 tab Rivaroxaban [Xarelto] 20 mg PO DAILY Famotidine [Pepcid] 20 mg PO BID 30 Days #60 tab Thiamine [Vitamin B-1] 100 mg PO BID-W/MEALS #60 tab Discharge Medication List Rivaroxaban [Xarelto] 20 mg PO DAILY 03/24/21 [History] Famotidine [Pepcid] 20 mg PO BID 30 Days #60 tab 11/07/21 [Rx] Magnesium Oxide [Mag-Ox] 400 mg PO DAILY #30 tab 11/07/21 [Rx] Metoprolol Tartrate [Lopressor] 25 mg PO BID #60 tab 11/07/21 [Rx] Thiamine [Vitamin B-1] 100 mg PO BID-W/MEALS #60 tab 11/07/21 [Rx] Albuterol Inhaler [Ventolin Hfa Inhaler] 2 puff INHALATION RT-TID 30 Days #1 gm 12/30/21 [Rx] Multivitamins, Thera [Multivitamin (formulary)] 1 each PO DAILY #30 tab 12/30/21 [Rx] Follow up Appointment(s)/Referral(s): Scott Hills MD [STAFF PHYSICIAN] - 01/09/22 2:30 pm Ghada Albraado MD [Primary Care Provider] - 01/01/22 8:00 am Ambulatory/Diagnostic Orders: Complete Blood Count w/diff [LAB.AMB] Time Frame: 3 Days, Location: None Selected Activity/Diet/Wound Care/Special Instructions: Activity Limited until follow-up Follow-up with primary care provider outpatient Follow-up with cardiology outpatient Follow-up with pulmonary outpatient Follow-up with [facility] for continued counseling for alcohol abuse and continue with meetings Avoid any alcohol intake Continue heart healthy diet Recommend repeat labs in 2-3 days Continue with compression stockings and elevate lower extremities while at rest Discharge Disposition: HOME SELF-CARE
== END 2021-12-30 17:00 | disposition home or self-care (01) | DRG 897 ==
LOC: EC 07:30 → 3SCARD 11:54
PROVIDERS: ADMIT Internal Medicine; ATTEND Internal Medicine
DX: F10.229 Alcohol dependence with intoxication, unspecified (principal); E87.2 Acidosis; I47.2 Ventricular tachycardia; G93.49 Other encephalopathy; F10.239 Alcohol dependence with withdrawal, unspecified; F17.210 Nicotine dependence, cigarettes, uncomplicated; E66.9 Obesity, unspecified; R51.9 Headache, unspecified; Z68.31 Body mass index [BMI] 31.0-31.9, adult; F32.A Depression, unspecified; D69.6 Thrombocytopenia, unspecified; F41.9 Anxiety disorder, unspecified; I10 Essential (primary) hypertension; I48.0 Paroxysmal atrial fibrillation; K70.9 Alcoholic liver disease, unspecified; K76.0 Fatty (change of) liver, not elsewhere classified; Y90.7 Blood alcohol level of 200-239 mg/100 ml; M54.50 Low back pain, unspecified; G89.29 Other chronic pain; G47.30 Sleep apnea, unspecified; S06.309S Unspecified focal traumatic brain injury with loss of consciousness of unspecified duration, sequela; W19.XXXS Unspecified fall, sequela; M19.90 Unspecified osteoarthritis, unspecified site; Z79.01 Long term (current) use of anticoagulants; Z79.899 Other long term (current) drug therapy; Z80.1 Family history of malignant neoplasm of trachea, bronchus and lung; Z86.711 Personal history of pulmonary embolism; Z86.718 Personal history of other venous thrombosis and embolism; Z91.14 Patient's other noncompliance with medication regimen; Z82.49 Family history of ischemic heart disease and other diseases of the circulatory system; Z88.0 Allergy status to penicillin; Z86.14 Personal history of Methicillin resistant Staphylococcus aureus infection
CPT/HCPCS: 36415; 71045; 71046; 71275; 80048; 80053; 80320; 83605; 83735; 83880; 84443; 84484; 85025; 85379; 85610; 85652; 85730; 86140; 87502; 87635; 93005; 94640; 94760; 96361; 96374; 96375; 99285

== ENCOUNTER 2022-01-08 23:24 | Inpatient (IN) | payer OTHER ==
--- NOTE | 2022-01-08 23:46 | ED ---
SOB HPI - General Chief Complaint: Shortness of Breath Stated Complaint: SOB Time Seen by Provider: 01/08/22 23:25 Source: RN notes reviewed - History of Present Illness Initial Comments: This is a pleasant 61-year-old male presents simmers arrived via EMS. Patient states he was having some shortness of breath tonight along with some intermittent chest pains which have been going on for 2 weeks. Patient admits to drinking a fifth of hard liquor. Patient has a history of atrial fibrillati on but denies any lung problems as far as he knows. Patient denying any current chest pain. Denies any head or neck injury. Initially brought in by EMS for psychiatric evaluation however he is denying any suicidal or homicidal ideation. He does admit to depression. No headache, no fever or chills, no changes in vision or hearing, no sore throat or difficulty with speech, no neck pain, no abdominal pain, no nausea or vomiting, no changes in urination or bowel movements, no numbness or tingling, no extremity pain, no skin rashes or lesions. Omits to alcohol intake, heavy, daily. Denies any illicit drug abuse. MD Complaint: shortness of breath - Related Data Home Medications Medication Instructions Recorded Confirmed Rivaroxaban [Xarelto] 20 mg PO DAILY 03/24/21 12/26/21 Previous Rx's Medication Instructions Recorded Famotidine [Pepcid] 20 mg PO BID 30 Days #60 tab 11/07/21 Magnesium Oxide [Mag-Ox] 400 mg PO DAILY #30 tab 11/07/21 Metoprolol Tartrate [Lopressor] 25 mg PO BID #60 tab 11/07/21 Thiamine [Vitamin B-1] 100 mg PO BID-W/MEALS #60 tab 11/07/21 Albuterol Inhaler [Ventolin Hfa 2 puff INHALATION RT-TID 30 Days 12/30/21 Inhaler] #1 gm Multivitamins, Thera [Multivitamin 1 each PO DAILY #30 tab 12/30/21 (formulary)] Allergies Allergy/AdvReac Type Severity Reaction Status Date / Time Penicillins Allergy Mild Rash/Hives Verified 12/26/21 09:01 Review of Systems ROS Statement: Those systems with pertinent positive or pertinent negative responses have been documented in the HPI. ROS Other: All systems not noted in ROS Statement are negative. Past Medical History Past Medical History: Atrial Fibrillation, Deep Vein Thrombosis (DVT), GERD/Reflux, Liver Disease, Osteoarthritis (OA), Pulmonary Embolus (PE), Sleep Apnea/CPAP/BIPAP Additional Past Medical History / Comment(s): ETOH abuse, alcoholic hepatitis, hepatic steatosis, chronic encephalopathy, thrombocytopenia, 03/2020 fall with brain bleed-transferred from [facility] to [facility]-pt states he still has chronic headaches, chronic low back pain, past DVT R leg and PEs-laterallity unknown, SOB with exertion, bilateral lower leg discolored/edematous. History of Any Multi-Drug Resistant Organisms: MRSA Date of last positivie culture/infection: 2006 MDRO Source:: unk Past Surgical History: Orthopedic Surgery Additional Past Surgical History / Comment(s): Left hand tendon surgery, EGD Past Anesthesia/Blood Transfusion Reactions: No Reported Reaction Past Psychological History: Anxiety, Depression Smoking Status: Current every day smoker Past Alcohol Use History: Abuse Past Drug Use History: None Reported - Past Family History Mother Family Medical History: AFIB Additional Family Medical History / Comment(s): Mother is 81 yrs old. Father Family Medical History: Cancer Additional Family Medical History / Comment(s): Pt believes his father passed from lung cancer. He was a smoker. General Exam General appearance: alert, in no apparent distress Head exam: Present: atraumatic, normocephalic, normal inspection Eye exam: Present: normal appearance, PERRL, EOMI. Absent: scleral icterus, conjunctival injection, periorbital swelling ENT exam: Present: normal exam, normal oropharynx, mucous membranes moist, TM's normal bilaterally, normal external ear exam. Absent: mucous membranes dry Neck exam: Present: normal inspection, full ROM. Absent: tenderness, meningismus, lymphadenopathy Respiratory exam: Present: normal lung sounds bilaterally. Absent: respiratory distress, wheezes, rales, rhonchi, stridor, chest wall tenderness, accessory muscle use Cardiovascular Exam: Present: regular rate, normal rhythm, normal heart sounds. Absent: systolic murmur, diastolic murmur, rubs, gallop, clicks GI/Abdominal exam: Present: soft, normal bowel sounds. Absent: distended, tenderness, guarding, rebound, rigid Extremities exam: Present: normal inspection, full ROM, normal capillary refill. Absent: tenderness, pedal edema, joint swelling, calf tenderness Back exam: Present: normal inspection Neurological exam: Present: alert, oriented X3, CN II-XII intact Psychiatric exam: Present: normal affect, normal mood Skin exam: Present: warm, dry, intact, normal color. Absent: rash Course Vital Signs 01/08/22 01/09/22 23:49 01:12 Temperature 97.0 F L Pulse Rate 104 H 94 Respiratory 20 18 Rate Blood Pressure 147/108 135/88 O2 Sat by Pulse 98 96 Oximetry - Reevaluation(s) Reevaluation #1: 01/09/22 01:19 Medical record is reviewed Symptoms are improved --no respiratory distress, no chest pain. Alcohol level was 358 Patient in no distress Reevaluation #2: 01/09/22 03:44 Patient resting comfortably. No distress. Medical Decision Making - Medical Decision Making Patient admitted to [facility] for alcohol intoxication. I did end up obtaining a CT angiogram of the chest to rule out pulmonary embolism as the patient's d-dimer was positive. Note that the patient was a very poor historian due to the alcohol intoxication. Supervising physician was Dr. Ray - Lab Data Result diagrams: 01/09/22 00:15 01/09/22 00:15 Lab Results 01/09/22 01/09/22 01/09/22 Range/Units 00:15 00:15 00:15 WBC 5.6 (3.8-10.6) k/uL RBC 5.13 (4.30-5.90) m/uL Hgb 17.0 (13.0-17.5) gm/dL Hct 51.6 (39.0-53.0) % MCV 100.6 H (80.0-100.0) fL MCH 33.2 (25.0-35.0) pg MCHC 33.0 (31.0-37.0) g/dL RDW 15.1 (11.5-15.5) % Plt Count 215 D (150-450) k/uL MPV 7.2 Neutrophils % 83 % Lymphocytes % 12 % Monocytes % 3 % Eosinophils % 0 % Basophils % 1 % Neutrophils # 4.6 (1.3-7.7) k/uL Lymphocytes # 0.7 L (1.0-4.8) k/uL Monocytes # 0.2 (0-1.0) k/uL Eosinophils # 0.0 (0-0.7) k/uL Basophils # 0.0 (0-0.2) k/uL Macrocytosis Slight PT 10.0 (9.0-12.0) sec INR 0.9 (<1.2) APTT 22.7 (22.0-30.0) sec D-Dimer 2.37 H (<0.60) mg/L FEU Sodium 140 (137-145) mmol/L Potassium 4.7 (3.5-5.1) mmol/L Chloride 97 L (98-107) mmol/L Carbon Dioxide 19 L (22-30) mmol/L Anion Gap 24 mmol/L BUN 11 (9-20) mg/dL Creatinine 0.82 (0.66-1.25) mg/dL Est GFR (CKD-EPI)AfAm >90 (>60 ml/min/1.73 sqM) Est GFR (CKD-EPI)NonAf >90 (>60 ml/min/1.73 sqM) Glucose 79 (74-99) mg/dL Calcium 9.0 (8.4-10.2) mg/dL Magnesium 1.9 (1.6-2.3) mg/dL Total Bilirubin 1.3 (0.2-1.3) mg/dL AST 104 H (17-59) U/L ALT 96 H (4-49) U/L Alkaline Phosphatase 99 (38-126) U/L Troponin I (0.000-0.034) ng/mL NT-Pro-B Natriuret Pep pg/mL Total Protein 9.0 H (6.3-8.2) g/dL Albumin 5.4 H (3.5-5.0) g/dL Serum Alcohol 358 H* mg/dL 01/09/22 01/09/22 Range/Units 00:15 00:15 WBC (3.8-10.6) k/uL RBC (4.30-5.90) m/uL Hgb (13.0-17.5) gm/dL Hct (39.0-53.0) % MCV (80.0-100.0) fL MCH (25.0-35.0) pg MCHC (31.0-37.0) g/dL RDW (11.5-15.5) % Plt Count (150-450) k/uL MPV Neutrophils % % Lymphocytes % % Monocytes % % Eosinophils % % Basophils % % Neutrophils # (1.3-7.7) k/uL Lymphocytes # (1.0-4.8) k/uL Monocytes # (0-1.0) k/uL Eosinophils # (0-0.7) k/uL Basophils # (0-0.2) k/uL Macrocytosis PT (9.0-12.0) sec INR (<1.2) APTT (22.0-30.0) sec D-Dimer (<0.60) mg/L FEU Sodium (137-145) mmol/L Potassium (3.5-5.1) mmol/L Chloride (98-107) mmol/L Carbon Dioxide (22-30) mmol/L Anion Gap mmol/L BUN (9-20) mg/dL Creatinine (0.66-1.25) mg/dL Est GFR (CKD-EPI)AfAm (>60 ml/min/1.73 sqM) Est GFR (CKD-EPI)NonAf (>60 ml/min/1.73 sqM) Glucose (74-99) mg/dL Calcium (8.4-10.2) mg/dL Magnesium (1.6-2.3) mg/dL Total Bilirubin (0.2-1.3) mg/dL AST (17-59) U/L ALT (4-49) U/L Alkaline Phosphatase (38-126) U/L Troponin I <0.012 (0.000-0.034) ng/mL NT-Pro-B Natriuret Pep 23 pg/mL Total Protein (6.3-8.2) g/dL Albumin (3.5-5.0) g/dL Serum Alcohol mg/dL - EKG Data EKG Comments: EKG shows sinus tachycardia with a rate of 100. Normal axis. Normal intervals. Normal QRS morphology. No evidence of ST elevation or ST depression. EKG done at 12:20 AM and reviewed by the ED attending physician. - Radiology Data Radiology results: report reviewed, image reviewed (Stable thoracic aneurysm and stable compression fractures noted. No pulmonary embolism) Disposition Clinical Impression: Alcohol intoxication Disposition: ADMITTED IP TO THIS [facility] Condition: Fair Time of Disposition: 01:20 Decision to Admit Reason: Admit from EC Decision Time: 01:20
[2022-01-09] MEDS ORDERED: SODIUM CHLORIDE 0.9% 1,000 ML with THIAMINE 100 MG, FOLIC ACID 1 MG IV ONE ×3
--- NOTE | 2022-01-09 00:20 | XR ---
EXAMINATION TYPE: XR chest 1V portable DATE OF EXAM: 01/08/2022 COMPARISON: NONE HISTORY: Short of breath TECHNIQUE: Single view FINDINGS: Heart is normal. Lungs are clear of infiltrate. There is no heart failure. There are no hil ar masses. Bony thorax is intact IMPRESSION: No active cardiopulmonary disease. Normal heart.
[2022-01-09 00:40] LABS: Basophils % (A) 1 %; Eosinophils % (A) 0 %; HCT 51.6 % (39.0-53.0); Lymphocytes # (A) 0.7 k/uL (1.0-4.8); Lymphocytes % (A) 12 %; MCH 33.2 pg (25.0-35.0); MCV 100.6 fL (80.0-100.0); Macrocytosis Slight; Mean Platelet Volume 7.2; Monocytes # (A) 0.2 k/uL (0-1.0); Monocytes % (A) 3 %; Neutrophils # (A) 4.6 k/uL (1.3-7.7); Neutrophils % (A) 83 %; RBC 5.13 m/uL (4.30-5.90); RDW 15.1 % (11.5-15.5); WBC 5.6 k/uL (3.8-10.6)
[2022-01-09 00:41] LABS: Platelet Count 215 k/uL (150-450)
[2022-01-09 00:42] LABS: ALT 96 U/L (4-49); AST 104 U/L (17-59); African American GFR (CKD) >90 (>60 ml/min/1.73 sqM); Albumin 5.4 g/dL (3.5-5.0); Alkaline Phosphatase 99 U/L (38-126); Anion Gap 24 mmol/L; Blood Urea Nitrogen 11 mg/dL (9-20); Carbon Dioxide 19 mmol/L (22-30); Chloride 97 mmol/L (98-107); Glucose 79 mg/dL (74-99); Magnesium 1.9 mg/dL (1.6-2.3); Non-African American GFR(CKD) >90 (>60 ml/min/1.73 sqM); Potassium 4.7 mmol/L (3.5-5.1); Sodium 140 mmol/L (137-145); Total Bilirubin 1.3 mg/dL (0.2-1.3)
[2022-01-09 01:10] LABS: INR 0.9 (<1.2); Partial Thromboplastin Time 22.7 sec (22.0-30.0)
[2022-01-09 01:14] LABS: Alcohol 358 mg/dL
--- NOTE | 2022-01-09 02:07 | CT ---
EXAMINATION TYPE: CT angio chest DATE OF EXAM: 01/09/2022 COMPARISON: 12/26/2021 HISTORY: SOB/elevated d-dimer. rule out PE. prior on PACS. CT DLP: 492.7 mGycm Automated exposure control for dose reduction was used. CONTRAST: Performed with IV Contrast, patient injected with 50ml mL of Isovue 370. Images obtained from the thoracic inlet to the diaphragm with IV contrast. There are Three-D postproc essed images. The lungs are clear of consolidation. No pleural effusion or pneumothorax. There is fatty infiltratio n of the liver. The stomach is intact. Heart size is normal. No pericardial effusion. There are no hilar masses. There is no mediastinal adenopathy. Thoracic aorta is intact. There is 4.5 cm aneurysm of the ascending aorta. No dissection. There is no evidence of filling defect in the pulmonary arteries. The thoracic vertebra have normal alignment. No focal bone destruction. There is slight anterior wedg ing of lower thoracic vertebra at T11 and T12. IMPRESSION: No evidence of pulmonary embolism. No suspicious pulmonary mass. Lungs are clear. Mild aneurysm of the ascending aorta without change. Lower thoracic mild compression fractures withou t change.
[2022-01-09] MEDS ORDERED: NALOXONE 0.4 MG/ML 1 ML VIAL IV PRN (02:27)
[2022-01-09] MEDS: ONDANSETRON 4 MG/2 ML VIAL IVP PRN ×2 (03:06→20:46)
--- NOTE | 2022-01-09 03:44 | P.HPIM ---
History of Present Illness H&P Date: 01/09/22 The patient is a 61-year-old male with a PMH of A. fib and DVT/PE on Xarelto, alcohol abuse with alcoholic liver disease who presented to the emergency room due to shortness of breath and alcohol abuse. The patient reports that over the past 1-2 months, he has had gradually worsening dyspnea on exertion, in particular with climbing up stairs. Denies pressing chest discomfort, diaphoresis, nausea, or lightheadedness with exertion. Reports drinking 1-2 fifths of vodka daily for at least the past decade. Reports history of delirium tremens requiring hospitalization but denied alcohol withdrawal seizure history. Of note, the patient was previously admitted to the hospital on 12/26 also with c omplaints of shortness of breath with alcohol intoxication, at which time cardiology had evaluated the patient and cleared the patient for discharge with no further evaluation needed. The patient denies experiencing fever, chills, cough, headaches, weakness, numbness, diarrhea. Laboratory evaluation was remarkable for serum alcohol level of 358, AST 104, ALT 96, CO2 19, and d-dimer 2.37. A chest CTA revealed no PE but did show mild aneurysm of the ascending aorta without change. Review of systems: Pertinent positives and negatives as discussed in HPI, a complete review of systems was performed and all other systems are negative. Physical examination: General: Disheveled tremulous male, no distress, appears at stated age, obese Derm: no unusual rashes/lesions no unusual ecchymoses, warm, dry Head: atraumatic, normocephalic, symmetric Eyes: EOMI, no lid lag, anicteric sclera, pupils equal round reactive to light ENT: Nose and ears atraumatic, no thrush, no pharyngeal erythema Neck: No thyromegaly, no cervical lymphadenopathy, trachea midline, supple Mouth: no lip lesion, mucus membranes moist Cardiovascular: S1S2 reg, no murmur, positive posterior tibial pulse bilateral, no edema, capillary refill less than 2 seconds Lungs: CTA bilateral, no rhonchi, no rales , no accessory muscle use Abdominal: soft, nontender to palpation, no guarding, no appreciable organomegaly, normal bowel sounds Ext: no gross muscle atrophy, muscle strength 5 out of 5 in all 4 extremities grossly, no contractures, Neuro: CN II-XI grossly intact, light touch intact all 4 extremities, outstretc hed hand tremor noted Psych: Alert, oriented, appropriate affect Assessment/plan Alcohol intoxication, impending withdrawal -CIWA protocol -IV fluids -Fall, aspiration precautions -Antiemetics -Monitor electrolytes -Cardiac monitoring Shortness of breath -Likely due to deconditioning in setting of significant alcohol use -Cardiology evaluated patient 2 weeks ago with no further workup ordered Elevated TSH -Obtain T3 and T4 levels Chronic conditions: A. fib -Continue with home meds DVT prophylaxis -Xarelto The patient is admitted with an anticipated less than 2 midnight stay for evaluation of alcohol intoxication CODE STATUS: Full Code Discussed with: Patient Anticipated discharge date: in am Anticipated discharge place: Home Past Medical History Past Medical History: Atrial Fibrillation, Deep Vein Thrombosis (DVT), GERD/Reflux, Liver Disease, Osteoarthritis (OA), Pulmonary Embolus (PE), Sleep Apnea/CPAP/BIPAP Additional Past Medical History / Comment(s): ETOH abuse, alcoholic hepatitis, hepatic steatosis, chronic encephalopathy, thrombocytopenia, 03/2020 fall with brain bleed-transferred from [facility] to [facility]-pt states he still has chronic headaches, chronic low back pain, past DVT R leg and PEs-laterallity unknown, SOB with exertion, bilateral lower leg discolored/edematous. History of Any Multi-Drug Resistant Organisms: MRSA Date of last positivie culture/infection: 2006 MDRO Source:: unk Past Surgical History: Orthopedic Surgery Additional Past Surgical History / Comment(s): Left hand tendon surgery, EGD Past Anesthesia/Blood Transfusion Reactions: No Reported Reaction Past Psychological History: Anxiety, Depression Smoking Status: Current every day smoker Past Alcohol Use History: Abuse Past Drug Use History: None Reported - Past Family History Mother Family Medical History: AFIB Additional Family Medical History / Comment(s): Mother is 81 yrs old. Father Family Medical History: Cancer Additional Family Medical History / Comment(s): Pt believes his father passed from lung cancer. He was a smoker. Medications and Allergies Home Medications Medication Instructions Recorded Confirmed Type Rivaroxaban [Xarelto] 20 mg PO DAILY 03/24/21 12/26/21 History Famotidine [Pepcid] 20 mg PO BID 30 Days #60 tab 11/07/21 12/26/21 Rx Magnesium Oxide [Mag-Ox] 400 mg PO DAILY #30 tab 11/07/21 12/26/21 Rx Metoprolol Tartrate [Lopressor] 25 mg PO BID #60 tab 11/07/21 12/26/21 Rx Thiamine [Vitamin B-1] 100 mg PO BID-W/MEALS #60 tab 11/07/21 12/26/21 Rx Albuterol Inhaler [Ventolin Hfa 2 puff INHALATION RT-TID 30 Days 12/30/21 Rx Inhaler] #1 gm Multivitamins, Thera [Multivitamin 1 each PO DAILY #30 tab 12/30/21 Rx (formulary)] Allergies Allergy/AdvReac Type Severity Reaction Status Date / Time Penicillins Allergy Mild Rash/Hives Verified 12/26/21 09:01 Physical Exam Vitals: Vital Signs Temp Pulse Resp BP Pulse Ox 01/09/22 01:12 94 18 135/88 96 01/08/22 23:49 97.0 F L 104 H 20 147/108 98 Intake and Output 01/08/22 01/08/22 01/09/22 14:59 22:59 06:59 Other: Weight 113.398 kg Results CBC & Chem 7: 01/09/22 00:15 01/09/22 00:15 Labs: Abnormal Lab Results - Last 24 Hours (Table) 01/09/22 01/09/22 01/09/22 Range/Units 00:15 00:15 00:15 MCV 100.6 H (80.0-100.0) fL Lymphocytes # 0.7 L (1.0-4.8) k/uL D-Dimer 2.37 H (<0.60) mg/L FEU Chloride 97 L (98-107) mmol/L Carbon Dioxide 19 L (22-30) mmol/L AST 104 H (17-59) U/L ALT 96 H (4-49) U/L Total Protein 9.0 H (6.3-8.2) g/dL Albumin 5.4 H (3.5-5.0) g/dL Serum Alcohol 358 H* mg/dL
[2022-01-09] MEDS ORDERED: LORazepam 2 MG/ML INJ IV PRN (04:46)
[2022-01-09] MEDS: LORazepam 2 MG/ML INJ IV PRN ×6 (06:11→23:46)
[2022-01-09 07:59] LABS: Amphetamine Screen,Urine Not Detected (NotDetected); Barbiturate Screen,Urine Not Detected (NotDetected); Benzodiazepines Screen,Urine Not Detected (NotDetected); Cocaine Screen,Urine Not Detected (NotDetected); Methadone Screen, Urine Not Detected (NotDetected); Opiate Screen,Urine Not Detected (NotDetected); Oxycodone Screen, Urine Not Detected (NotDetected); Phencyclidine Screen,Urine Not Detected (NotDetected); Tricyclic Antidepressant,Urine Not Detected (NotDetected); Urn Cannabinoid Scrn Not Detected (NotDetected)
[2022-01-09] MEDS ORDERED: LORazepam 2 MG/ML INJ IM STA (08:29)
[2022-01-09] MEDS: ACETAMINOPHEN TAB 325 MG TAB PO PRN ×2 (08:36→17:24)
[2022-01-09] MEDS ORDERED: IPRATROPIUM-ALBUTEROL 3 ML NEB INHALATION PRN (09:39)
--- NOTE | 2022-01-09 09:48 | P.PN ---
Subjective Progress Note Date: 01/09/22 Hospital course: Patient is a very pleasant 61-year-old male with a past medical history of hypertension, peripheral vascular disease with chronic venous stasis dermatitis, nicotine dependence, history of previous DVTs and PEs on anticoagulation with Xarelto, and daily EtOH abuse drinking 2 fifths of vodka every day times many years, at least over a decade. Patient presented to the emergency department overnight with a chief complaint of dyspnea with exertion 1-2 months. Reports history of delirium tremens requiring hospitalization but denied alcohol withdrawal seizure history. Of note, the patient was previously admitted to the hospital on 12/26 also with similar complaints of shortness of breath with alcohol intoxication, at which time patient underwent full evaluation and cardiology had evaluated the patient and cleared the patient for discharge with no further evaluation needed. In the emergency department patient again underwent full evaluation. EKG completed showing sinus tachycardia at 100 bpm with no noted to wave or ST abnormalities. Chest x-ray negative for acute cardiopulmonary process. D-dimer was elevated at 2.37. CTA negative for pulmonary emboli revealing mild aneurysm of the ascending aorta without change and lower thoracic mild compression fractures without change from previous examination on 12/26/21. Liver enzymes elevated with AST of 104 and ALT of 96. Troponin negative at less than 0.012. Urine drug screen was negative. Serum alcohol was 358. Patient admitted under our services. Physical exam: Patient seen and fully evaluated at bedside this morning. Pt very tremulous upon examination. RN reported current CIWA score 10. Patient reports history of detox tremens but denies history of seizures or intubation. Patient currently reports mild nausea and tremors at this time. He denies headache, lightheadedness, dizziness, chest pain, palpitations, shortness of breath, abdominal pain, vomiting, or experiencing any numbness/tingling/weakness in his extremities. Vital signs reviewed and stable. General: Nontoxic, no distress and appears stated age. Derm: Skin warm and dry, normal coloration for ethnicity. Head: Atraumatic, normocephalic and symmetric. Eyes: EOMs intact, no lid lag, and anicteric sclera Mouth: no lip lesions, mucus membranes moist Cardiovascular: regular rate and rhythm with normal S1S2, no murmur, positive posterior tibial pulses bilaterally, and cap refill < 2 seconds. Lungs: Respirations even, regular, and unlabored on room air. Lungs CTA bilaterally, no rhonchi, no rales, no wheezing, and no accessory muscle usage. Abdominal: soft, nontender to palpation, no guarding, no appreciable organomegaly Ext: ROM intact. No gross muscle atrophy, no edema, no contractures Neuro: Speech clear, face symmetrical and CN II-XII grossly intact with no noted focal neuro deficits Psych: Alert and oriented to person, place, time, and situation. Appropriate and pleasant affect. Assessment and Plan of Care: Alcohol intoxication -[facility] Protocol with symptom triggered medication management with benzodiazepines. -Continuous IV hydration. -Thiamine 100 mg twice a day -Multivitamin daily -Folate 1 mg daily -Seizure, fall, aspiration, and elopement precautions in place. -Urine drug screen negative -Continued close monitoring of electrolytes and replace as needed. -Telemetry monitoring. History of DVTs and PEs -Continue daily anticoagulant with Xarelto. Hypertension -Continue daily medication regimen with metoprolol CODE STATUS: Full code DVT prophylaxis: Xarelto Discussed with: patient and RN Anticipated discharge date: 1-[address]: Home versus [place] possibly later today versus tomorrow morning pending detox process, patient clinically sober at 12 PM A total of 34 minutes was spent on the care of this complex patient more than 50% of the time was spent in counseling and care coordination. Objective - Vital Signs Vital signs: Vital Signs Temp 97.0 F L 01/08/22 23:49 Pulse 80 01/09/22 05:19 Resp 20 01/09/22 05:19 BP 157/83 01/09/22 05:19 Pulse Ox 98 01/09/22 05:19 Intake & Output 01/08/22 01/09/22 01/09/22 18:59 06:59 18:59 Weight 113.398 kg - Labs CBC & Chem 7: 01/09/22 00:15 01/09/22 00:15 Labs: Abnormal Lab Results - Last 24 Hours (Table) 01/09/22 01/09/22 01/09/22 Range/Units 00:15 00:15 00:15 MCV 100.6 H (80.0-100.0) fL Lymphocytes # 0.7 L (1.0-4.8) k/uL D-Dimer 2.37 H (<0.60) mg/L FEU Chloride 97 L (98-107) mmol/L Carbon Dioxide 19 L (22-30) mmol/L AST 104 H (17-59) U/L ALT 96 H (4-49) U/L Total Protein 9.0 H (6.3-8.2) g/dL Albumin 5.4 H (3.5-5.0) g/dL Serum Alcohol 358 H* mg/dL
[2022-01-09] MEDS: SODIUM CHLORIDE 0.9% 1,000 ML IV SCH ×3 (11:24→18:27)
[2022-01-09] MEDS: THIAMINE 100 MG TAB PO SCH (17:25)
[2022-01-09] MEDS: METOPROLOL TARTRATE 25 MG TAB PO SCH (19:43)
[2022-01-09] MEDS: FAMOTIDINE 20 MG TAB PO SCH (19:43)
[2022-01-10] MEDS: SODIUM CHLORIDE 0.9% 1,000 ML IV SCH ×3 (02:16→13:38)
[2022-01-10] MEDS: LORazepam 2 MG/ML INJ IV PRN ×5 (05:21→20:23)
[2022-01-10] MEDS: MULTIVITAMINS, THERA 1 EACH TAB PO SCH (08:54)
[2022-01-10] MEDS: METOPROLOL TARTRATE 25 MG TAB PO SCH ×2 (08:54→20:22)
[2022-01-10] MEDS: FAMOTIDINE 20 MG TAB PO SCH ×2 (08:54→20:22)
[2022-01-10] MEDS: THIAMINE 100 MG TAB PO SCH ×2 (08:54→17:46)
[2022-01-10] MEDS: RIVAROXABAN 20 MG TAB PO SCH (08:57)
--- NOTE | 2022-01-10 11:26 | P.PN ---
Subjective Progress Note Date: 01/10/22 Principal diagnosis: Alcohol withdrawal Patient is a very pleasant 61-year-old male with a past medical history of hypertension, peripheral vascular disease with chronic venous stasis dermatitis, nicotine dependence, history of previous DVTs and PEs on anticoagulation with Xarelto, and daily EtOH abuse drinking 2 fifths of vodka every day times many years, at least over a decade. Patient presented to the emergency department overnight with a chief complaint of dyspnea with exertion 1-2 months. Reports history of delirium tremens requiring hospitalization but denied alcohol withdrawal seizure history. Of note, the patient was previously admitted to the hospital on 12/26 also with similar complaints of shortness of breath with alcohol intoxication, at which time patient underwent full evaluation and cardiology had evaluated the patient and cleared the patient for discharge with no further evaluation needed. In the emergency department patient again underwent full evaluation. EKG completed showing sinus tachycardia at 100 bpm with no noted to wave or ST abnormalities. Chest x-ray negative for acute cardiopulmonary process. D-dimer was elevated at 2.37. CTA negative for pulmonary emboli revealing mild aneurysm of the ascending aorta without change and lower thoracic mild compression fractures without change from previous examination on 12/26/21. Liver enzymes elevated with AST of 104 and ALT of 96. Troponin negative at less than 0.012. Urine drug screen was negative. Serum alcohol was 358. Patient admitted under our services. 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 Reports some hallucinations. Per nursing staff patient is still requiring IV Ativan. Continues to have mild tremors Objective - Vital Signs Vital signs: Vital Signs Temp 98.6 F 01/10/22 04:17 Pulse 70 01/10/22 04:17 Resp 17 01/10/22 04:17 BP 155/86 01/10/22 04:17 Pulse Ox 94 L 01/10/22 04:17 Intake & Output 01/09/22 01/10/22 01/10/22 18:59 06:59 18:59 Intake Total 1040 2060 Output Total 200 Balance 1040 1860 Weight 113.398 kg Intake: Intake, IV Titration 1040 1560 Amount Sodium Chloride 0.9% 1 1040 1560 000 ml @ 130 mls/hr IV . [id number] [facility] Rx#:[id number] Oral 500 Output: Urine 200 Other: Voiding Method Toilet Urinal # Voids 2 # Bowel Movements 2 - Exam Vital signs reviewed and stable. General: Nontoxic, no distress and appears stated age. Derm: Skin warm and dry, normal coloration for ethnicity. Head: Atraumatic, normocephalic and symmetric. Eyes: EOMs intact, no lid lag, and anicteric sclera Mouth: no lip lesions, mucus membranes moist Cardiovascular: regular rate and rhythm with normal S1S2, no murmur, positive posterior tibial pulses bilaterally, and cap refill < 2 seconds. Lungs: Respirations even, regular, and unlabored on room air. Lungs CTA bilaterally, no rhonchi, no rales, no wheezing, and no accessory muscle usage. Abdominal: soft, nontender to palpation, no guarding, no appreciable organomegaly Ext: ROM intact. No gross muscle atrophy, no edema, no contractures Neuro: Speech clear, face symmetrical and CN II-XII grossly intact with no noted focal neuro deficits Psych: Alert and oriented to person, place, time, and situation. Appropriate and pleasant affect. - Labs CBC & Chem 7: 01/09/22 00:15 01/09/22 00:15 Assessment and Plan Plan: Alcohol intoxication -[facility] Protocol with symptom triggered medication management with benzodiazepines. -Decrease IV fluids to 75 mL an hour, encourage oral intake -Thiamine 100 mg twice a day -Multivitamin daily -Folate 1 mg daily -Seizure, fall, aspiration, and elopement precautions in place. -Urine drug screen negative -Continued close monitoring of electrolytes and replace as needed. -Telemetry monitoring. Atrial fibrillation Patient is on metoprolol, Xarelto Hypertension -Accelerated at this time. Continue with metoprolol and adjust as needed Disposition: Anticipate patient to be discharged within the next 24-48 hours. Continue currently with [facility] protocol
[2022-01-10 11:29] LABS: HCT 38.8 % (39.6-50.0); HGB 12.7 g/dL (13.0-17.0); MCH 32.2 pg (27.0-32.0); MCHC 32.7 g/dL (32.0-37.0); MCV 98.5 fL (80.0-97.0); Mean Platelet Volume 10.6 fL (9.5-12.2); NRBC Per 100 WBC 0 /100 WBCS (0.0-0.0); Platelet Count 98 X 10*3/uL (140-440); RBC 3.94 X 10*6/uL (4.40-5.60); RDW 14.7 % (11.5-14.5)
[2022-01-10 11:51] LABS: African American GFR (CKD) 118.9 (60.0-200.0); Albumin 3.8 g/dL (3.8-4.9); Albumin/Globulin Ratio 1.9 (1.60-3.17); BUN/Creat Ratio 13.43 Ratio (12.00-20.00); Blood Urea Nitrogen 9.4 mg/dL (9.0-27.0); Calcium 8.3 mg/dL (8.7-10.3); Magnesium 1.7 mg/dL (1.5-2.4); Non-African American GFR(CKD) 102.6 (60.0-200.0); Total Bilirubin 1.5 mg/dL (0.30-1.20); Total Protein 5.8 g/dL (6.2-8.2)
[2022-01-10] MEDS: ONDANSETRON 4 MG/2 ML VIAL IVP PRN (20:23)
[2022-01-10] MEDS: ACETAMINOPHEN TAB 325 MG TAB PO PRN (20:24)
[2022-01-10] MEDS: LOPERAMIDE 2 MG CAP PO PRN (20:45)
[2022-01-11] MEDS: LORazepam 2 MG/ML INJ IV PRN ×3 (02:13→21:57)
[2022-01-11] MEDS: SODIUM CHLORIDE 0.9% 1,000 ML IV SCH ×2 (02:13→15:15)
--- NOTE | 2022-01-11 08:30 | P.PN ---
Progress Note - Text Progress Note Date: 01/11/[address] Talbert that patient was transitioned to inpatient and he agreed with transitioning to his service. Conservation Science Teacher notified and will change admitting and attending.
[2022-01-11] MEDS: THIAMINE 100 MG TAB PO SCH ×2 (08:58→17:07)
[2022-01-11] MEDS: FAMOTIDINE 20 MG TAB PO SCH ×2 (08:58→21:57)
[2022-01-11] MEDS: MULTIVITAMINS, THERA 1 EACH TAB PO SCH (08:58)
[2022-01-11] MEDS: MAGNESIUM OXIDE 400 MG TAB PO SCH (08:58)
[2022-01-11] MEDS: METOPROLOL TARTRATE 25 MG TAB PO SCH ×2 (08:58→21:57)
[2022-01-11] MEDS: RIVAROXABAN 20 MG TAB PO SCH (08:59)
[2022-01-11 09:27] LABS: African American GFR (CKD) 127.4 (60.0-200.0); Albumin 3.9 g/dL (3.8-4.9); Albumin/Globulin Ratio 2.01 (1.60-3.17); Anion Gap 6.4 mmol/L (10.00-18.00); BUN/Creat Ratio 13.75 Ratio (12.00-20.00); Blood Urea Nitrogen 8.1 mg/dL (9.0-27.0); Calcium 8.5 mg/dL (8.7-10.3); Globulin 1.9 g/dL (1.6-3.3); Non-African American GFR(CKD) 109.9 (60.0-200.0); Potassium 3.9 mmol/L (3.5-5.5); Total Bilirubin 1.1 mg/dL (0.30-1.20); Total Protein 5.8 g/dL (6.2-8.2)
--- NOTE | 2022-01-11 12:36 | XR ---
EXAMINATION TYPE: XR chest 1V DATE OF EXAM: 01/11/2022 COMPARISON: 01/08/2022 INDICATION: Short of breath TECHNIQUE: Single frontal view of the chest is obtained. FINDINGS: The heart size is normal. The pulmonary vasculature is normal. The lungs are clear. IMPRESSION: 1. No acute pulmonary process.
--- NOTE | 2022-01-11 13:00 | P.PN ---
Subjective This is a pleasant 7 years old male with past medical history of DVT, atrial fibrillation, GERD, osteoarthritis, pulmonary embolism, sleep apnea on CPAP/BiPAP, alcohol abuse with alcohol intoxication, colic hepatitis and hepatic steatosis and chronic encephalopathy with the thrombocytopenia in 2019 he fell with apparently transferred to outside facility. Chronic low back pain, peripheral vascular disease and chronic venous status and dermatitis. Anxiety and depression Patient states that he presents to the hospital because of dyspnea with e xertion. No coughing, no chest pain. he has some loose stool or diarrhea since he came to the hospital about 2-3 times a day. He has chronic numbness in both toes. he smokes about half pack per day and drinks about the fifth of liquor every day. He feels anxious and depressed but denies any suicidal thoughts or plans (I have a family and I would not do this to them ) as he states. Also is complaining of from chronic low back pain. He going to start on Cymbalta His CIWA score is ranging between 3 and 9 Check chest x-ray showed no acute process He is hemodynamically stable and afebrile. Sodium 133, rest of BMP is unremarkable. Liver enzymes slightly elevated with AST 62 and ALT 73. 3 T4 is normal 1.2. CBC is with WBC 4.0, hemoglobin 12.7 and a platelet count 98 D-dimer elevated at 2.3. Urine drug screen is negative. Serum alcohol was elevated 3582 days ago. CTA of the chest: No pulmonary embolism, no suspicious pulmonary masses lungs are clear. EKG shows sinus tachycardia at [address]-T changes Objective - Vital Signs Vital signs: Vital Signs Temp 98.5 F 01/11/22 04:31 Pulse 67 01/11/22 04:31 Resp 18 01/11/22 04:31 BP 147/90 01/11/22 04:31 Pulse Ox 96 01/11/22 04:31 Intake & Output 01/10/22 01/11/22 01/11/22 18:59 06:59 18:59 Intake Total 780 2100 Balance 780 2100 Intake: Intake, IV Titration 780 900 Amount Sodium Chloride 0.9% 1, 780 000 ml @ 130 mls/hr IV . [id number] [facility] Rx#:[id number] Sodium Chloride 0.9% 1, 900 000 ml @ 75 mls/hr IV . [id number] [facility] Rx#:[id number] Oral 1200 Other: Voiding Method Urinal Toilet Urinal # Voids 8 # Bowel Movements 1 - Exam GENERAL: The patient is alert and oriented x3, not in any acute distress. Well developed, well nourished. HEENT: Pupils are round and equally reacting to light. EOMI. No scleral icterus. No conjunctival pallor. Normocephalic, atraumatic. No pharyngeal erythema. No thyromegaly. CARDIOVASCULAR: S1 and S2 present. No murmurs, rubs, or gallops. PULMONARY: Chest is clear to auscultation, no wheezing or crackles. ABDOMEN: Soft, nontender, nondistended, normoactive bowel sounds. No palpable organomegaly. MUSCULOSKELETAL: No joint swelling or deformity. EXTREMITIES: No cyanosis, clubbing, or pedal edema. NEUROLOGICAL: Gross neurological examination did not reveal any focal deficits. SKIN: No rashes. no petechiae. - Labs CBC & Chem 7: 01/10/22 06:24 01/11/22 06:36 Labs: Abnormal Lab Results - Last 24 Hours (Table) 01/10/22 01/10/22 01/11/22 Range/Units 06:24 06:24 06:36 WBC 4.00 L (4.50-10.00) X 10*3/uL RBC 3.94 L (4.40-5.60) X 10*6/uL Hgb 12.7 L (13.0-17.0) g/dL Hct 38.8 L (39.6-50.0) % MCV 98.5 H (80.0-97.0) fL MCH 32.2 H (27.0-32.0) pg RDW 14.7 H (11.5-14.5) % Plt Count 98 L (140-440) X 10*3/uL Sodium 133 L 133 L (135-145) mmol/L Anion Gap 6.40 L (10.00-18.00) mmol/L BUN 8.1 L (9.0-27.0) mg/dL Calcium 8.3 L 8.5 L (8.7-10.3) mg/dL Total Bilirubin 1.50 H (0.30-1.20) mg/dL AST 46 H 62 H (14-35) U/L ALT 64 H 73 H (10-49) U/L Total Protein 5.8 L 5.8 L (6.2-8.2) g/dL Assessment and Plan Assessment: Alcohol withdrawal Acute alcohol abuse History of DVT/PE on Xarelto Paroxysmal atrial fibrillation on Xarelto History of sleep apnea Alcoholic hepatitis and steatosis Chronic encephalopathy Thrombocytopenia History of brain bleed in 2019 Chronic back pain History of peripheral vascular disease and chronic venous stasis dermatitis Anxiety and depression Plan: This is a pleasant 61 years old male who presents with withdrawal Continue with CIWA protocol and thiamine Start Cymbalta and psychiatric consult for depression. We will check echocardiogram, given his history of smoking and exertional dyspnea Labs and medication were reviewed.. Continue same treatment. Continue with symptomatic treatment. Resume home medication. Monitor lytes and vitals. DVT and GI prophylaxis. Further recommendationsas per clinical course of the patient DVT prophylaxis: Xarelto GI Prophylaxis: Pepcid Prognosis is guarded
[2022-01-11] MEDS: DULoxetine HCL 30 MG CAPSULE.DR PO SCH (15:14)
[2022-01-11] MEDS: ONDANSETRON 4 MG/2 ML VIAL IVP PRN (21:57)
[2022-01-11] MEDS: LOPERAMIDE 2 MG CAP PO PRN (21:57)
[2022-01-12 04:22] VITALS: RESP 18
[2022-01-12] MEDS: SODIUM CHLORIDE 0.9% 1,000 ML IV SCH (05:15)
[2022-01-12] MEDS: DULoxetine HCL 30 MG CAPSULE.DR PO SCH (08:06)
[2022-01-12] MEDS: MULTIVITAMINS, THERA 1 EACH TAB PO SCH (08:06)
[2022-01-12] MEDS: THIAMINE 100 MG TAB PO SCH (08:06)
[2022-01-12] MEDS: RIVAROXABAN 20 MG TAB PO SCH (08:06)
[2022-01-12] MEDS: FAMOTIDINE 20 MG TAB PO SCH (08:07)
[2022-01-12] MEDS: MAGNESIUM OXIDE 400 MG TAB PO SCH (08:07)
[2022-01-12] MEDS: METOPROLOL TARTRATE 25 MG TAB PO SCH (08:07)
[2022-01-12] MEDS ORDERED: chlordiazePOXIDE 25 MG CAP PO SCH (10:00)
[2022-01-12 10:13] LABS: Basophils # (A) 0.1 k/uL (0-0.2); Basophils % (A) 2 %; Eosinophils # (A) 0.1 k/uL (0-0.7); Eosinophils % (A) 2 %; HCT 45.8 % (39.0-53.0); HGB 14.6 gm/dL (13.0-17.5); Lymphocytes # (A) 0.9 k/uL (1.0-4.8); Lymphocytes % (A) 21 %; MCH 32.2 pg (25.0-35.0); MCHC 31.8 g/dL (31.0-37.0); MCV 101.3 fL (80.0-100.0); Macrocytosis Slight; Mean Platelet Volume 9.8; Monocytes # (A) 0.2 k/uL (0-1.0); Monocytes % (A) 6 %; Neutrophils % (A) 69 %; RBC 4.52 m/uL (4.30-5.90); RDW 13.8 % (11.5-15.5); WBC 4.3 k/uL (3.8-10.6)
[2022-01-12 10:25] LABS: ALT 112 U/L (4-49); AST 101 U/L (17-59); African American GFR (CKD) >90 (>60 ml/min/1.73 sqM); Albumin 3.7 g/dL (3.5-5.0); Albumin/Globulin Ratio 1.3; Alkaline Phosphatase 65 U/L (38-126); Anion Gap 8 mmol/L; Blood Urea Nitrogen 8 mg/dL (9-20); Calcium 8.9 mg/dL (8.4-10.2); Carbon Dioxide 24 mmol/L (22-30); Chloride 103 mmol/L (98-107); Globulin 2.9 g/dL; Glucose 97 mg/dL (74-99); Magnesium 1.6 mg/dL (1.6-2.3); Non-African American GFR(CKD) >90 (>60 ml/min/1.73 sqM); Potassium 3.9 mmol/L (3.5-5.1); Sodium 135 mmol/L (137-145); Total Bilirubin 1.4 mg/dL (0.2-1.3); Total Protein 6.6 g/dL (6.3-8.2)
--- NOTE | 2022-01-12 10:35 | P.CRDCN ---
History of Present Illness Consult date: 01/12/22 History of present illness: HISTORY OF PRESENT ILLNESS: This is a 61-year-old male with a past medical history significant for PE/DVT on Xarelto, nicotine dependence, alcohol abuse, and paroxysmal atrial fibrillation (recently diagnosed in October 2021). 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 We have been asked to see the patient in consultation for shortness of breath. Patient examined at the bedside. The patient currently presented to the hospital with a chief complaint of shortness of breath. The patient was found to be acutely intoxicated with an alcohol level of 358. The patient currently denies any chest pain or pressure. He reports mild shortness of breath. * EKG reveals sinus tachycardia * Chest xray no acute process * Chest CTA negative for PE * Laboratory data: WBC 4.3. Hemoglobin 14.6. Platelet count 95. D-dimer 2.37. Sodium 135. Potassium 3.9. BUN 8. Creatinine 0.74. Troponin negative 1. ProBNP 23. * Current home cardiac medications include Xarelto 20 mg daily, metoprolol tartrate 25 mg twice a day * Most recent echocardiogram obtained in December 2021 revealed ejection fraction 55-60%, trace to mild aortic regurgitation, mild MR, mild TR REVIEW OF SYSTEMS: At the time of my exam: CONSTITUTIONAL: Denies fever or chills. HEENT: Denies blurred vision, vision changes, or eye pain. Denies hemoptysis CARDIOVASCULAR: Denies chest pain. Denies orthopnea. Denies PND. Denies palpitations RESPIRATORY: Denies shortness of breath. GASTROINTESTINAL: Denies abdominal pain. Denies nausea or vomiting. HEMATOLOGIC: Denies bleeding disorders. GENITOURINARY: Denies any blood in urine. SKIN: Denies pruitis. Denies rash. PHYSICAL EXAM: VITAL SIGNS: Reviewed. GENERAL: Well-developed in no acute distress. HEENT: Head is normocephalic. Pupils are equal, round. Sclerae anicteric. Mucous membranes of the mouth are moist. Neck supple. No JVD or thyromegaly LUNGS: Respirations even and unlabored. Lungs essentially clear to auscultation bilaterally. HEART: Regular rate and rhythm. S1 and S2 heard. ABDOMEN: Soft. Nondistended. Nontender. EXTREMITIES: Normal range of motion. No clubbing or cyanosis. Peripheral pulses intact. No lower extremity edema NEUROLOGIC: Awake and alert. Oriented x 3. ASSESSMENT: Shortness of breath Acute alcohol intoxication Paroxysmal atrial fibrillation History of DVT/PE Nicotine dependence Alcohol abuse History of medication noncompliance History of nonsustained ventricular tachycardia PLAN: Repeat EKG No need to to repeat echo as this was performed last month Continue current cardiac medications Recommend abstinence from alcohol Etiology of patients SOB is unclear, however it does not seem to be cardiac related. May benefit from pulmonary evaluation. We will sign off. Please reconsult if needed. Nurse practitioner note has been reviewed by physician. Signing provider agrees with the documented findings, assessment, and plan of care. Past Medical History Past Medical History: Atrial Fibrillation, Deep Vein Thrombosis (DVT), GERD/Reflux, Liver Disease, Osteoarthritis (OA), Pulmonary Embolus (PE), Skin Disorder, Sleep Apnea/CPAP/BIPAP, Vascular Disorder Additional Past Medical History / Comment(s): Pt recently admitted to [facility] on 12/26/21 with alcohol intoxication/withdrawl and possible copd. Other hx: ETOH abuse, alcoholic hepatitis, hepatic steatosis, chronic encephalopathy, thrombocytopenia, 03/2020 fall with brain bleed-transferred from [facility] to [facility]-pt states he still has chronic headaches, chronic low back pain, PVD, chronic venous stasis dermatitis, past DVT R leg and PEs-laterallity unknown, SOB with exertion, LYRIC/no device, bilateral lower leg discolored/edematous. History of Any Multi-Drug Resistant Organisms: MRSA Date of last positivie culture/infection: 2006 MDRO Source:: unk Past Surgical History: Orthopedic Surgery Additional Past Surgical History / Comment(s): Left hand tendon surgery, EGD Past Anesthesia/Blood Transfusion Reactions: No Reported Reaction Smoking Status: Current every day smoker - Past Family History Mother Family Medical History: AFIB Additional Family Medical History / Comment(s): Mother is 81 yrs old. Father Family Medical History: Cancer Additional Family Medical History / Comment(s): Pt believes his father passed from lung cancer. He was a smoker. Medications and Allergies Home Medications Medication Instructions Recorded Confirmed Type Rivaroxaban [Xarelto] 20 mg PO DAILY 03/24/21 01/09/22 History Famotidine [Pepcid] 20 mg PO BID 30 Days #60 tab 11/07/21 01/09/22 Rx Magnesium Oxide [Mag-Ox] 400 mg PO DAILY #30 tab 11/07/21 01/09/22 Rx Metoprolol Tartrate [Lopressor] 25 mg PO BID #60 tab 11/07/21 01/09/22 Rx Thiamine [Vitamin B-1] 100 mg PO BID-W/MEALS #60 tab 11/07/21 01/09/22 Rx Albuterol Inhaler [Ventolin Hfa 2 puff INHALATION RT-TID 30 Days 12/30/21 01/09/22 Rx Inhaler] #1 gm Multivitamins, Thera [Multivitamin 1 tab PO DAILY 01/09/22 01/09/22 History (formulary)] Allergies Allergy/AdvReac Type Severity Reaction Status Date / Time Penicillins Allergy Mild Rash/Hives Verified 01/09/22 07:17 Physical Exam Vitals: Vital Signs Temp Pulse Resp BP Pulse Ox 01/12/22 08:21 79 156/78 01/12/22 04:20 98.6 F 63 18 134/89 96 01/12/22 02:37 97 01/11/22 21:55 61 160/80 01/11/22 20:06 97.7 F 58 L 16 157/96 97 01/11/22 18:52 56 L 16 01/11/22 11:20 98.1 F 56 L 16 148/91 96 Intake and Output 01/11/22 01/12/22 01/12/22 22:59 06:59 14:59 Intake Total 900 Output Total 1300 Balance -400 Intake: Intake, IV Titration 900 Amount Sodium Chloride 0.9% 1, 900 000 ml @ 75 mls/hr IV . [id number] [facility] Rx#:[id number] Output: Urine 1300 Other: Voiding Method Toilet Urinal Urinal Results 01/12/22 09:54 01/12/22 09:54 Cardiac Enzymes 01/12/22 Range/Units 09:54 AST 101 H (17-59) U/L CBC 01/12/22 Range/Units 09:54 WBC 4.3 (3.8-10.6) k/uL RBC 4.52 (4.30-5.90) m/uL Hgb 14.6 (13.0-17.5) gm/dL Hct 45.8 (39.0-53.0) % Plt Count 95 L D (150-450) k/uL Comprehensive Metabolic Panel 01/12/22 Range/Units 09:54 Sodium 135 L (137-145) mmol/L Potassium 3.9 (3.5-5.1) mmol/L Chloride 103 (98-107) mmol/L Carbon Dioxide 24 (22-30) mmol/L BUN 8 L (9-20) mg/dL Creatinine 0.74 (0.66-1.25) mg/dL Glucose 97 (74-99) mg/dL Calcium 8.9 (8.4-10.2) mg/dL AST 101 H (17-59) U/L ALT 112 H (4-49) U/L Alkaline Phosphatase 65 (38-126) U/L Total Protein 6.6 (6.3-8.2) g/dL Albumin 3.7 (3.5-5.0) g/dL Current Medications Generic Name Dose Route Start Last Admin Trade Name Freq PRN Reason Stop Dose Admin Acetaminophen 650 mg 01/09/22 02:27 01/10/22 20:24 Acetaminophen Tab 325 Mg Tab PO 650 mg Q6HR PRN Administration Mild Pain or Fever > 100.5 Albuterol/Ipratropium 3 ml 01/09/22 09:39 Ipratropium-Albuterol 3 Ml Neb INHALATION RT-Q2H PRN Shortness Of Breath Or Wheezing Chlordiazepoxide HCl 25 mg 01/12/22 10:00 01/12/22 10:01 Chlordiazepoxide 25 Mg Cap PO 25 mg TID [facility] Administration Duloxetine HCl 30 mg 01/11/22 13:00 01/12/22 08:06 Duloxetine Hcl 30 Mg Capsule.Dr PO 30 mg DAILY [facility] Administration Famotidine 20 mg 01/09/22 21:00 01/12/22 08:07 Famotidine 20 Mg Tab PO 20 mg BID [facility] Administration Sodium Chloride 1,000 mls @ 75 mls/hr 01/10/22 11:30 01/12/22 05:15 Saline 0.9% IV 75 mls/hr .[id number] [facility] Administration Loperamide HCl 2 mg 01/10/22 20:35 01/11/22 21:57 Loperamide 2 Mg Cap PO 2 mg QID PRN Administration Diarrhea Lorazepam 1 mg 01/09/22 04:46 01/11/22 09:09 Lorazepam 2 Mg/Ml Inj IV 1 mg Q2HR PRN Administration CIWA 8 or 9 Lorazepam 1 mg 01/09/22 04:46 01/11/22 21:57 Lorazepam 2 Mg/Ml Inj IV 1 mg Q1HR PRN Administration CIWA 10 to 15 Magnesium Oxide 400 mg 01/11/22 09:00 01/12/22 08:07 Magnesium Oxide 400 Mg Tab PO 400 mg DAILY [facility] Administration Metoprolol Tartrate 25 mg 01/09/22 21:00 01/12/22 08:07 Metoprolol Tartrate 25 Mg Tab PO 25 mg BID [facility] Administration Multivitamins 1 each 01/10/22 09:00 01/12/22 08:06 Multivitamins, Thera 1 Each Tab PO 1 each DAILY [facility] Administration Naloxone HCl 0.2 mg 01/09/22 02:27 Naloxone 0.4 Mg/Ml 1 Ml Vial IV Q2M PRN Opioid Reversal Ondansetron HCl 4 mg 01/09/22 02:27 01/11/22 21:57 Ondansetron 4 Mg/2 Ml Vial IVP 4 mg Q8HR PRN Administration Nausea And Vomiting Rivaroxaban 20 mg 01/10/22 09:00 01/12/22 08:06 Rivaroxaban 20 Mg Tab PO 20 mg DAILY [facility] Administration Protocol Thiamine HCl 100 mg 01/09/22 17:30 01/12/22 08:06 Thiamine 100 Mg Tab PO 100 mg BID-W/MEALS [facility] Administration Intake and Output 01/11/22 01/12/22 01/12/22 22:59 06:59 14:59 Intake Total 900 Output Total 1300 Balance -400 Intake: Intake, IV Titration 900 Amount Sodium Chloride 0.9% 1, 900 000 ml @ 75 mls/hr IV . [id number] [facility] Rx#:[id number] Output: Urine 1300 Other: Voiding Method Toilet Urinal Urinal 01/12/22 09:54 01/12/22 09:54
[2022-01-12 11:07] LABS: Platelet Count 95 k/uL (150-450)
[2022-01-12 12:10] VITALS: BP 142/93; PULSE 57; TEMP 98.1
--- NOTE | 2022-01-12 14:28 | P.CN ---
Psychiatric Consult - . Consult date: 01/12/22 Consult:: 01/12/22 14:28 IDENTIFYING DATA: This patient is a , unemployed, 61-year-old male who was admitted to the hospital for alcohol withdrawal and SOB. REASON FOR CONSULT: Depression and Alcohol Use Disorder HISTORY OF PRESENT ILLNESS: The patient presented to the hospital on 01/08/2022 with a chief complaint of shortness of breath and concerns for alcohol withdrawal. The patient has been drinking up to a fifth of liquor per day. This is the patient's fifth hospitalization for similar presentation involving alcohol. Psychiatry has been consulted for evaluation of depression and alcohol use disorder. This patient was last evaluated by this provider on 11/2020 for similar presentation. Currently, the patient is not endorsing any depressive symptoms. He is vehemently denying any suicidal or homicidal ideation, intention, and/or plan. He is not reporting any auditory or visual hallucinations. He denies any access to firearms other weapons. The patient does express a desire to quit alcohol however continues to report that his difficulty in doing so. He was provided resources and states that he is likely to pursue rehab again but instead will go to [place] and try their program rather than [place] as he has been there 3 times before. He was previously open with Alcoholics Anonymous however no longer attends. He reports that he tried to go back to meetings. PAST PSYCHIATRIC HISTORY: The patient does not report any significant history of mental illness aside from heavy alcohol use. The patient has been tried on psychotropic medications including Seroquel and is most recently on a regimen of Cymbalta. Patient denies any previous psychiatric hospitalizations. Patient denies any psychiatric outpatient follow-up. Patient denies any history of suicide attempts in the past. PAST MEDICAL HISTORY: Past Medical History: Atrial Fibrillation, Deep Vein Thrombosis (DVT), GERD/Reflux, Liver Disease, Osteoarthritis (OA), Pulmonary Embolus (PE), Sleep Apnea/CPAP/BIPAP Additional Past Medical History / Comment(s): ETOH abuse, alcoholic hepatitis, hepatic steatosis, chronic encephalopathy, thrombocytopenia, 03/2020 fall with b rain bleed-transferred from [facility] to [facility]-pt states he still has chronic headaches, chronic low back pain, past DVT R leg and PEs-laterallity unknown, SOB with exertion, bilateral lower leg discolored/edematous. History of Any Multi-Drug Resistant Organisms: MRSA Date of last positivie culture/infection: 2006 MDRO Source:: unk Past Surgical History: Orthopedic Surgery Additional Past Surgical History / Comment(s): Left hand tendon surgery, EGD Past Anesthesia/Blood Transfusion Reactions: No Reported Reaction Past Psychological History: Anxiety, Depression Smoking Status: Current every day smoker Past Alcohol Use History: Abuse Past Drug Use History: None Reported ALLERGIES: Penicillin CHEMICAL DEPENDENCY HISTORY: Grossly unchanged from last evaluation last year. The patient reports that he began drinking at the age of 16. He states that he began drinking heavily since the age of 19. He has been drinking approximately a fifth of liquor per day over the past 2 weeks prior to this admission however this may be longer as he has had 5 hospitalizations for alcohol intoxication/withdrawal this past month. He reports that the longest he has been sober was for 11 months but began drinking heavily in the fall of 2018. He reported what kept him sober was going to AA meetings. He also reports half a pack per day of tobacco use. He denies any marijuana or illicit drug use. FAMILY PSYCHIATRIC/SUBSTANCE USE HISTORY: Reports that his father and paternal uncle are both alcoholics. He denies any family history of mental health problems. SOCIAL HISTORY: Patient was born and raised in [facility]. He currently lives with a friend. He is currently unemployed and has no source of income and is receiving financial help from his mother. He reports 12th grade education. 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 He has 2 biological children and a granddaughter. He has currently been for 10 years but has been from his for the past 2 years. He states that his relationship with his is amicable and that they are still in contact. MENTAL STATUS EXAM: General Appearance: Patient appears to be stated age is alert, pleasant, and cooperative. Patient appears to have fair hygiene and grooming wearing his home cltohes (camo). Patient has a reina. Behavior: Patient is standing in his room and preparing to go. Eye contact is appropriate. Patient appears to be belching throughout the interview. Speech: Patient's speech is fluent and nonpressured. Monotone with otherwise normal spontaneity and volume. Mood/Affect: Patient reports their mood is "feeling good", affect is congruent and bright. Suicidality/Homicidality: Patient denies having any suicidal or homicidal ideation intent or plan. Perceptions: The patient denies any auditory hallucinations. He reports visual hallucinations. Though content/process: There is no evidence of any delusional thought content and thought process is linear and goal-directed. Memory and concentration: AOX3, grossly intact for the purposes of this session. 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 -Delirium precautions recommended with patient including - avoiding use of narcotics and [employer] SAL[employer] sedatives, limit anticholinergic medications when possible, frequent re-orientation, minimize use of restraints, open window shades during the day and close them at night -Would recommend the following medication changes/additions: No medication changes will be made at this time. -Patient has been provided resources for alcohol use disorder. We will continue to encourage sobriety. Patient is cleared psychiatrically for discharge. 01/12/22 14:28
[2022-01-12] MEDS ORDERED: MAGNESIUM OXIDE 400 MG TAB PO SCH (16:00)
--- NOTE | 2022-01-13 15:42 | P.DS ---
Providers Date of admission: 01/09/22 15:57 Expected date of discharge: 01/12/22 Attending physician: Oneal Talbert MD Consults: 01/11/22 12:57 Consult Physician Urgent Consulting Provider: Kvng Lopez Consult Reason/Comments: depression and alcholic Do you want consulting provider notified?: Yes 01/12/22 07:46 Consult Physician Routine Consulting Provider: Ratna Rogers Consult Reason/Comments: sob and smoker Do you want consulting provider notified?: Yes Primary care physician: Per [facility] Hospital Course: Final diagnosis Alcohol withdrawal Acute alcohol abuse History of DVT/PE on Xarelto Paroxysmal atrial fibrillation next line history of sleep apnea Alcoholic hepatitis and steatosis Chronic encephalopathy Thrombocytopenia History of brain bleed in 2019 Chronic back pain History of peripheral vascular disease and chronic venous stasis dermatitis Anxiety/depression DVT prophylaxis GI prophylaxis Full code Discharge disposition Patient is being discharged in a stable condition with guarded prognosis to home. Patient will follow-up with Dr. Albarado in the outpatient setting upon discharge. Patient is to also follow up with pulmonary outpatient as scheduled. Patient will continue on Librium taper on discharge. Total time taken is greater than 35 minutes. Hospital course This is a 61-year-old male who was admitted for acute alcohol intoxication also with some associated shortness of breath and chest pain and was being closely monitored. Patient was maintained on CIWA protocol and was evaluated by cardiology recommending outpatient follow-up as needed. Hemoglobin A1c was ordered and is currently 4.9. Patient had recent cardiac workup and encourage the patient to follow-up in the outpatient setting. Patient with some shortness of breath and had an appointment with Dr. Hills although he feels he missed it as he was admitted and will be rescheduled and this was discussed with the patient. Patient encouraged to avoid alcohol and tobacco use and will be given a Librium taper on discharge. Patient also encouraged to follow up with [facility] in the outpatient setting for AA meetings and counseling. Currently no reports of chest pain, shortness of breath, or palpitations. Patient is afebrile. No reports of nausea or vomiting and patient is tolerating diet. Patient will be discharged home today. Her prognosis as patient has had multiple readmissions for acute alcohol intoxication and noncompliance. Physical exam: Gen: This is a 61-year-old male awake, alert and oriented 3, well-developed, well-nourished. HEENT: Head is atraumatic, normocephalic. Pupils equal, round. Sclerae is anicteric. NECK: Supple. No JVD. No lymphadenopathy. No thyromegaly. LUNGS: Clear to auscultation. No wheezes or rhonchi. No intercostal retractions. HEART: Regular rate and rhythm. No murmur. ABDOMEN: Soft. Bowel sounds are present. No masses. No tenderness. EXTREMITIES: No pedal edema. No calf tenderness. NEUROLOGICAL: Patient is awake, alert and oriented x3. Cranial nerves 2 through 12 are grossly intact. Please refer to medication reconciliation sheet for a list of medications. The impression and plan of care has been dictated by Mariza Alberto, Nurse Practitioner as directed. Dr. Aryan MD I have performed a history and examination and MDM of this patient, discussed the same with the dictator, and agree with the dictator's assessment and plan as written ,documented as a scribe. Based on total visit time, I have performed more than 50% of the visit. Patient Condition at Discharge: Fair Plan - Discharge Summary Discharge Rx Participant: No New Discharge Prescriptions: New DULoxetine HCL [Cymbalta] 30 mg PO DAILY 30 Days #30 tab chlordiazePOXIDE HCl [Librium] 25 mg PO TID #12 cap Acetaminophen Tab [Tylenol] 650 mg PO Q6HR PRN tab PRN Reason: Mild Pain Or Fever > 100.5 Loperamide [Imodium] 2 mg PO QID PRN cap PRN Reason: Diarrhea Continue Metoprolol Tartrate [Lopressor] 25 mg PO BID #60 tab Albuterol Inhaler [Ventolin Hfa Inhaler] 2 puff INHALATION RT-TID 30 Days #1 gm Rivaroxaban [Xarelto] 20 mg PO DAILY Famotidine [Pepcid] 20 mg PO BID 30 Days #60 tab Thiamine [Vitamin B-1] 100 mg PO BID-W/MEALS #60 tab Multivitamins, Thera [Multivitamin (formulary)] 1 tab PO DAILY Changed Magnesium Oxide [Mag-Ox] 400 mg PO TID 30 Days #90 tab Discharge Medication List Rivaroxaban [Xarelto] 20 mg PO DAILY 03/24/21 [History] Famotidine [Pepcid] 20 mg PO BID 30 Days #60 tab 11/07/21 [Rx] Metoprolol Tartrate [Lopressor] 25 mg PO BID #60 tab 11/07/21 [Rx] Thiamine [Vitamin B-1] 100 mg PO BID-W/MEALS #60 tab 11/07/21 [Rx] Albuterol Inhaler [Ventolin Hfa Inhaler] 2 puff INHALATION RT-TID 30 Days #1 gm 12/30/21 [Rx] Multivitamins, Thera [Multivitamin (formulary)] 1 tab PO DAILY 01/09/22 [History] Acetaminophen Tab [Tylenol] 650 mg PO Q6HR PRN tab 01/12/22 [Rx] DULoxetine HCL [Cymbalta] 30 mg PO DAILY 30 Days #30 tab 01/12/22 [Rx] Loperamide [Imodium] 2 mg PO QID PRN cap 01/12/22 [Rx] Magnesium Oxide [Mag-Ox] 400 mg PO TID 30 Days #90 tab 01/12/22 [Rx] chlordiazePOXIDE HCl [Librium] 25 mg PO TID #12 cap 01/12/22 [Rx] Follow up Appointment(s)/Referral(s): Scott Hills MD [STAFF PHYSICIAN] - 02/06/22 3:00 pm (The office is at lunch please call and make follow up appointment.) Ghada Albarado MD [Primary Care Provider] - 1 Week (The office wants you to call and make follow up appointment due to you not showing up for the last 4 appointments.) Patient Instructions/Handouts: Chlordiazepoxide (By mouth), Magnesium (By mouth), Duloxetine (By mouth), Abuse of Alcohol (DC) Activity/Diet/Wound Care/Special Instructions: Activity Limited until follow-up Follow-up primary care provider on discharge Follow-up with pulmonary outpatient Continue taking medications as prescribed Continue heart healthy diet Avoid all alcohol and tobacco use Continue Librium taper Discharge/Stand Alone Forms: AA Meetings [facility] Discharge Disposition: HOME SELF-CARE
== END 2022-01-12 14:41 | disposition home or self-care (01) | DRG 897 ==
LOC: EC 23:24 → 6NMEDSUR 01-09 03:02 → OBSVTOIN 01-09 15:57 → 5NMEDONC 01-09 16:05
PROVIDERS: ADMIT Internal Medicine; ATTEND Internal Medicine
PROC: HZ2ZZZZ Detoxification Services for Substance Abuse Treatment (ICD-10-PCS; principal; 2022-01-09)
DX: F10.239 Alcohol dependence with withdrawal, unspecified (principal); G93.40 Encephalopathy, unspecified; F10.229 Alcohol dependence with intoxication, unspecified; K70.10 Alcoholic hepatitis without ascites; I48.0 Paroxysmal atrial fibrillation; D69.6 Thrombocytopenia, unspecified; I71.2 Thoracic aortic aneurysm, without rupture; Y90.8 Blood alcohol level of 240 mg/100 ml or more; K76.0 Fatty (change of) liver, not elsewhere classified; I10 Essential (primary) hypertension; G47.33 Obstructive sleep apnea (adult) (pediatric); K21.9 Gastro-esophageal reflux disease without esophagitis; L30.9 Dermatitis, unspecified; I87.8 Other specified disorders of veins; I87.2 Venous insufficiency (chronic) (peripheral); R51.9 Headache, unspecified; M54.50 Low back pain, unspecified; M19.90 Unspecified osteoarthritis, unspecified site; I73.9 Peripheral vascular disease, unspecified; I08.3 Combined rheumatic disorders of mitral, aortic and tricuspid valves; F41.9 Anxiety disorder, unspecified; R00.0 Tachycardia, unspecified; F32.A Depression, unspecified; G89.29 Other chronic pain; F17.210 Nicotine dependence, cigarettes, uncomplicated; Z91.14 Patient's other noncompliance with medication regimen; Z79.01 Long term (current) use of anticoagulants; Z79.899 Other long term (current) drug therapy; Z86.711 Personal history of pulmonary embolism; Z86.718 Personal history of other venous thrombosis and embolism; Z86.14 Personal history of Methicillin resistant Staphylococcus aureus infection; Z80.1 Family history of malignant neoplasm of trachea, bronchus and lung; Z81.2 Family history of tobacco abuse and dependence; Z87.820 Personal history of traumatic brain injury; Z88.0 Allergy status to penicillin; Z91.19 Patient's noncompliance with other medical treatment and regimen
CPT/HCPCS: 36415; 71045; 71275; 80053; 80306; 80320; 83036; 83735; 83880; 84439; 84480; 84484; 85025; 85027; 85379; 85610; 85730; 93005; 96374; 96375; 96376; 99285

== ENCOUNTER 2022-01-19 04:35 | Emergency (ER) | payer OTHER ==
--- NOTE | 2022-01-19 04:56 | ED ---
SOB HPI - General Chief Complaint: Shortness of Breath Stated Complaint: EDDIE Time Seen by Provider: 01/19/22 04:44 Source: patient Mode of arrival: ambulatory Limitations: altered mental status (Appears intoxicated) - History of Present Illness MD Complaint: shortness of breath -: year(s) Severity scale (1-10): 0 Consistency: constant Improves With: nothing Worsens With: nothing Known History Of: COPD Associated Symptoms: denies other symptoms Treatments Prior to Arrival: none - Related Data Home Medications Medication Instructions Recorded Confirmed Rivaroxaban [Xarelto] 20 mg PO DAILY 03/24/21 01/19/22 Multivitamins, Thera [Multivitamin 1 tab PO DAILY 01/09/22 01/19/22 (formulary)] chlordiazePOXIDE HCl [Librium] See Taper PO TID 01/19/22 01/19/22 Previous Rx's Medication Instructions Recorded Famotidine [Pepcid] 20 mg PO BID 30 Days #60 tab 11/07/21 Metoprolol Tartrate [Lopressor] 25 mg PO BID #60 tab 11/07/21 Thiamine [Vitamin B-1] 100 mg PO BID-W/MEALS #60 tab 11/07/21 Albuterol Inhaler [Ventolin Hfa 2 puff INHALATION RT-TID 30 Days 12/30/21 Inhaler] #1 gm Acetaminophen Tab [Tylenol] 650 mg PO Q6HR PRN tab 01/12/22 DULoxetine HCL [Cymbalta] 30 mg PO DAILY 30 Days #30 tab 01/12/22 Loperamide [Imodium] 2 mg PO QID PRN cap 01/12/22 Magnesium Oxide [Mag-Ox] 400 mg PO TID 30 Days #90 tab 01/12/22 Allergies Allergy/AdvReac Type Severity Reaction Status Date / Time Penicillins Allergy Mild Rash/Hives Verified 01/19/22 15:07 Review of Systems ROS Statement: Those systems with pertinent positive or pertinent negative responses have been documented in the HPI. ROS Other: All systems not noted in ROS Statement are negative. Limitations: ROS unobtainable due to patients medical condition (Patient appears intoxicated) Respiratory: Reports: dyspnea Cardiovascular: Denies: chest pain, palpitations, edema Gastrointestinal: Reports: vomiting. Denies: abdominal pain Musculoskeletal: Denies: back pain Neurological: Denies: headache Past Medical History Past Medical History: Atrial Fibrillation, Deep Vein Thrombosis (DVT), GERD/Reflux, Liver Disease, Osteoarthritis (OA), Pulmonary Embolus (PE), Skin Disorder, Sleep Apnea/CPAP/BIPAP, Vascular Disorder Additional Past Medical History / Comment(s): Pt recently admitted to [facility] on 12/26/21 with alcohol intoxication/withdrawl and possible copd. Other hx: ETOH abuse, alcoholic hepatitis, hepatic steatosis, chronic encephalopathy, thrombocytopenia, 03/2020 fall with brain bleed-transferred from [facility] to [facility]-pt states he still has chronic headaches, chronic low back pain, PVD, chronic venous stasis dermatitis, past DVT R leg and PEs-laterallity unknown, SO B with exertion, LYRIC/no device, bilateral lower leg discolored/edematous. History of Any Multi-Drug Resistant Organisms: MRSA Date of last positivie culture/infection: 2006 MDRO Source:: unk Past Surgical History: Orthopedic Surgery Additional Past Surgical History / Comment(s): Left hand tendon surgery, EGD Past Anesthesia/Blood Transfusion Reactions: No Reported Reaction Past Psychological History: Anxiety, Depression Smoking Status: Current every day smoker Past Alcohol Use History: Abuse, Daily, Heavy Past Drug Use History: None Reported - Past Family History Mother Family Medical History: AFIB Additional Family Medical History / Comment(s): Mother is 81 yrs old. Father Family Medical History: Cancer Additional Family Medical History / Comment(s): Pt believes his father passed from lung cancer. He was a smoker. General Exam Limitations: no limitations General appearance: alert, appears intoxicated Head exam: Present: atraumatic, normocephalic Eye exam: Present: normal appearance, PERRL, EOMI, nystagmus. Absent: scleral icterus, conjunctival injection Respiratory exam: Present: normal lung sounds bilaterally, rhonchi. Absent: respiratory distress, wheezes, rales, stridor Cardiovascular Exam: Present: regular rate, normal rhythm, normal heart sounds. Absent: systolic murmur, diastolic murmur, rubs, gallop GI/Abdominal exam: Present: soft. Absent: distended, tenderness, guarding, rebound, rigid, mass Extremities exam: Present: normal inspection, normal capillary refill. Absent: pedal edema, calf tenderness Back exam: Present: normal inspection. Absent: CVA tenderness (R), CVA tenderness (L) Neurological exam: Present: alert Skin exam: Present: warm, dry, intact, normal color. Absent: rash Course Vital Signs 01/19/22 01/19/22 01/19/22 04:39 06:36 06:46 Temperature 97.8 F Pulse Rate 90 89 Respiratory 18 19 Rate Blood Pressure 143/106 143/99 O2 Sat by Pulse 98 99 Oximetry Medical Decision Making - Lab Data Result diagrams: 01/19/22 04:52 01/19/22 04:52 Lab Results 01/19/22 01/19/22 01/19/22 Range/Units 04:52 04:52 04:52 WBC 2.4 L (3.8-10.6) k/uL RBC 4.46 (4.30-5.90) m/uL Hgb 14.0 (13.0-17.5) gm/dL Hct 45.5 (39.0-53.0) % MCV 101.9 H (80.0-100.0) fL MCH 31.4 (25.0-35.0) pg MCHC 30.8 L (31.0-37.0) g/dL RDW 14.4 (11.5-15.5) % Plt Count 160 D (150-450) k/uL MPV 7.7 Neutrophils % 35 % Lymphocytes % 46 % Monocytes % 12 % Eosinophils % 1 % Basophils % 3 % Neutrophils # 0.8 L (1.3-7.7) k/uL Lymphocytes # 1.1 (1.0-4.8) k/uL Monocytes # 0.3 (0-1.0) k/uL Eosinophils # 0.0 (0-0.7) k/uL Basophils # 0.1 (0-0.2) k/uL Manual Slide Review Performed Macrocytosis Slight PT 10.0 (9.0-12.0) sec INR 0.9 (<1.2) APTT 23.4 (22.0-30.0) sec Sodium 143 (137-145) mmol/L Potassium 4.2 (3.5-5.1) mmol/L Chloride 101 (98-107) mmol/L Carbon Dioxide 35 H (22-30) mmol/L Anion Gap 7 mmol/L BUN 5 L (9-20) mg/dL Creatinine 0.65 L (0.66-1.25) mg/dL Est GFR (CKD-EPI)AfAm >90 (>60 ml/min/1.73 sqM) Est GFR (CKD-EPI)NonAf >90 (>60 ml/min/1.73 sqM) Glucose 95 (74-99) mg/dL Lactic Ac Sepsis Rflx Plasma Lactic Acid Azam (0.7-2.0) mmol/L Calcium 8.2 L (8.4-10.2) mg/dL Total Bilirubin 0.5 (0.2-1.3) mg/dL AST 67 H (17-59) U/L ALT 98 H (4-49) U/L Alkaline Phosphatase 67 (38-126) U/L Troponin I (0.000-0.034) ng/mL Total Protein 6.8 (6.3-8.2) g/dL Albumin 4.0 (3.5-5.0) g/dL Serum Alcohol 294 H* mg/dL 01/19/22 01/19/22 01/19/22 Range/Units 04:52 04:52 05:36 WBC (3.8-10.6) k/uL RBC (4.30-5.90) m/uL Hgb (13.0-17.5) gm/dL Hct (39.0-53.0) % MCV (80.0-100.0) fL MCH (25.0-35.0) pg MCHC (31.0-37.0) g/dL RDW (11.5-15.5) % Plt Count (150-450) k/uL MPV Neutrophils % % Lymphocytes % % Monocytes % % Eosinophils % % Basophils % % Neutrophils # (1.3-7.7) k/uL Lymphocytes # (1.0-4.8) k/uL Monocytes # (0-1.0) k/uL Eosinophils # (0-0.7) k/uL Basophils # (0-0.2) k/uL Manual Slide Review Macrocytosis PT (9.0-12.0) sec INR (<1.2) APTT (22.0-30.0) sec Sodium (137-145) mmol/L Potassium (3.5-5.1) mmol/L Chloride (98-107) mmol/L Carbon Dioxide (22-30) mmol/L Anion Gap mmol/L BUN (9-20) mg/dL Creatinine (0.66-1.25) mg/dL Est GFR (CKD-EPI)AfAm (>60 ml/min/1.73 sqM) Est GFR (CKD-EPI)NonAf (>60 ml/min/1.73 sqM) Glucose (74-99) mg/dL Lactic Ac Sepsis Rflx Y Plasma Lactic Acid Azam 2.9 H* (0.7-2.0) mmol/L Calcium (8.4-10.2) mg/dL Total Bilirubin (0.2-1.3) mg/dL AST (17-59) U/L ALT (4-49) U/L Alkaline Phosphatase (38-126) U/L Troponin I <0.012 (0.000-0.034) ng/mL Total Protein (6.3-8.2) g/dL Albumin (3.5-5.0) g/dL Serum Alcohol mg/dL - EKG Data -: EKG Interpreted by Me EKG shows normal: sinus rhythm, axis (Normal), intervals (Normal), QRS complexes (Normal), ST-T waves (Normal) Rate: normal (Rate 88 bpm) Disposition Clinical Impression: Alcohol intoxication Disposition: HOME SELF-CARE Condition: Good Instructions (If sedation given, give patient instructions): Alcohol Intoxic ation (DC) Is patient prescribed a controlled substance at d/c from ED?: No Referrals: Ghada Albarado MD [Primary Care Provider] - 1-2 days
--- NOTE | 2022-01-19 05:09 | XR ---
EXAMINATION TYPE: XR chest 2V DATE OF EXAM: 01/19/2022 COMPARISON: I 122 HISTORY: Short of breath TECHNIQUE: FINDINGS: There is no heart failure nor confluent pneumonic infiltrate. Costophrenic angles are clear . There are no hilar masses. Bony thorax is intact. IMPRESSION: Normal chest. No change.
[2022-01-19 05:28] LABS: ALT 98 U/L (4-49); AST 67 U/L (17-59); African American GFR (CKD) >90 (>60 ml/min/1.73 sqM); Alkaline Phosphatase 67 U/L (38-126); Anion Gap 7 mmol/L; Blood Urea Nitrogen 5 mg/dL (9-20); Calcium 8.2 mg/dL (8.4-10.2); Carbon Dioxide 35 mmol/L (22-30); Chloride 101 mmol/L (98-107); Glucose 95 mg/dL (74-99); Non-African American GFR(CKD) >90 (>60 ml/min/1.73 sqM); Potassium 4.2 mmol/L (3.5-5.1); Sodium 143 mmol/L (137-145); Total Bilirubin 0.5 mg/dL (0.2-1.3); Total Protein 6.8 g/dL (6.3-8.2)
--- NOTE | 2022-01-19 05:29 | CT ---
EXAMINATION TYPE: CT brain wo con DATE OF EXAM: 01/19/2022 COMPARISON: 10/20/2021 HISTORY: Fall CT DLP: 1161.4 mGycm Automated exposure control for dose reduction was used. Images of the brain obtained without contrast. Ventricles have fairly normal size. There is no mass effect or midline shift. There is no sign of int racranial hemorrhage. Calvarium is intact. Skull base is intact. IMPRESSION: Negative unenhanced head CT scan no change.
[2022-01-19 05:34] LABS: Basophils # (A) 0.1 k/uL (0-0.2); Basophils % (A) 3 %; Eosinophils % (A) 1 %; HCT 45.5 % (39.0-53.0); Lymphocytes # (A) 1.1 k/uL (1.0-4.8); Lymphocytes % (A) 46 %; MCH 31.4 pg (25.0-35.0); MCHC 30.8 g/dL (31.0-37.0); MCV 101.9 fL (80.0-100.0); Macrocytosis Slight; Mean Platelet Volume 7.7; Monocytes # (A) 0.3 k/uL (0-1.0); Monocytes % (A) 12 %; Neutrophils # (A) 0.8 k/uL (1.3-7.7); Neutrophils % (A) 35 %; RBC 4.46 m/uL (4.30-5.90); RDW 14.4 % (11.5-15.5); WBC 2.4 k/uL (3.8-10.6)
[2022-01-19 05:36] LABS: Alcohol 294 mg/dL
[2022-01-19 05:55] LABS: Platelet Count 160 k/uL (150-450)
[2022-01-19 06:09] LABS: INR 0.9 (<1.2); Partial Thromboplastin Time 23.4 sec (22.0-30.0)
[2022-01-19 06:36] VITALS: TEMP 97.8
[2022-01-19 06:46] VITALS: BP 143/99; PULSE 89; RESP 19
== END 2022-01-19 06:46 | disposition home or self-care (01) ==
LOC: EC 04:35
DX: F10.129 Alcohol abuse with intoxication, unspecified (principal); J44.9 Chronic obstructive pulmonary disease, unspecified; I48.91 Unspecified atrial fibrillation; K21.9 Gastro-esophageal reflux disease without esophagitis; M19.90 Unspecified osteoarthritis, unspecified site; F32.A Depression, unspecified; F41.9 Anxiety disorder, unspecified; F17.200 Nicotine dependence, unspecified, uncomplicated; Z79.51 Long term (current) use of inhaled steroids; Z79.01 Long term (current) use of anticoagulants; Z79.899 Other long term (current) drug therapy; Z86.711 Personal history of pulmonary embolism; Z86.718 Personal history of other venous thrombosis and embolism; Y90.8 Blood alcohol level of 240 mg/100 ml or more
CPT/HCPCS: 36415; 93005; 80053; 83605; 84484; 85025; 85610; 85730; 71046; 70450; 99285; G0480; 80320

== ENCOUNTER 2022-01-19 08:48 | Inpatient (IN) | payer OTHER ==
[2022-01-19] MEDS ORDERED: IPRATROPIUM-ALBUTEROL 3 ML NEB INHALATION STA (09:04)
[2022-01-19] MEDS ORDERED: LORazepam 2 MG/ML INJ IV STA ×3 (09:05→13:02)
--- NOTE | 2022-01-19 09:07 | ED ---
General Adult HPI - General Chief complaint: Upper Respiratory Infection Stated complaint: cough Time Seen by Provider: 01/19/22 08:49 Source: patient, EMS, RN notes reviewed Mode of arrival: EMS Limitations: no limitations - History of Present Illness Initial comments: Patient is a pleasant 61-year-old male presenting to the emergency Department with concerns with difficulty in breathing. Patient states that has been going on for weeks. Patient later states that is fairly chronic for him. Patient states he is a long-time smoker and questions if he has any COPD. No significant cough. No fevers. Patient was recently discharged for alcohol int oxication. - Related Data Home Medications Medication Instructions Recorded Confirmed Rivaroxaban [Xarelto] 20 mg PO DAILY 03/24/21 01/09/22 Multivitamins, Thera [Multivitamin 1 tab PO DAILY 01/09/22 01/09/22 (formulary)] Previous Rx's Medication Instructions Recorded Famotidine [Pepcid] 20 mg PO BID 30 Days #60 tab 11/07/21 Metoprolol Tartrate [Lopressor] 25 mg PO BID #60 tab 11/07/21 Thiamine [Vitamin B-1] 100 mg PO BID-W/MEALS #60 tab 11/07/21 Albuterol Inhaler [Ventolin Hfa 2 puff INHALATION RT-TID 30 Days 12/30/21 Inhaler] #1 gm Acetaminophen Tab [Tylenol] 650 mg PO Q6HR PRN tab 01/12/22 DULoxetine HCL [Cymbalta] 30 mg PO DAILY 30 Days #30 tab 01/12/22 Loperamide [Imodium] 2 mg PO QID PRN cap 01/12/22 Magnesium Oxide [Mag-Ox] 400 mg PO TID 30 Days #90 tab 01/12/22 chlordiazePOXIDE HCl [Librium] 25 mg PO TID #12 cap 01/12/22 Allergies Allergy/AdvReac Type Severity Reaction Status Date / Time Penicillins Allergy Mild Rash/Hives Verified 01/19/22 08:56 Review of Systems ROS Statement: Those systems with pertinent positive or pertinent negative responses have been documented in the HPI. ROS Other: All systems not noted in ROS Statement are negative. Constitutional: Denies: fever, chills Eyes: Denies: eye pain ENT: Denies: ear pain Respiratory: Reports: dyspnea. Denies: cough Cardiovascular: Denies: chest pain Endocrine: Denies: fatigue Gastrointestinal: Denies: abdominal pain Genitourinary: Denies: dysuria Musculoskeletal: Denies: back pain Skin: Denies: rash Neurological: Denies: weakness Past Medical History Past Medical History: Atrial Fibrillation, Deep Vein Thrombosis (DVT), GERD/Reflux, Liver Disease, Osteoarthritis (OA), Pulmonary Embolus (PE), Skin Disorder, Sleep Apnea/CPAP/BIPAP, Vascular Disorder Additional Past Medical History / Comment(s): Pt recently admitted to [facility] on 12/26/21 with alcohol intoxication/withdrawl and possible copd. Other hx: ETOH abuse, alcoholic hepatitis, hepatic steatosis, chronic encephalopathy, thrombocytopenia, 03/2020 fall with brain bleed-transferred from [facility]-pt states he still has chronic headaches, chronic low back pain, PVD, chronic venous stasis dermatitis, past DVT R leg and PEs-laterallity unknown, SOB with exertion, LYRIC/no device, bilateral lower leg discolored/edematous. History of Any Multi-Drug Resistant Organisms: MRSA Date of last positivie culture/infection: 2006 MDRO Source:: unk Past Surgical History: Orthopedic Surgery Additional Past Surgical History / Comment(s): Left hand tendon surgery, EGD Past Anesthesia/Blood Transfusion Reactions: No Reported Reaction Past Psychological History: Anxiety, Depression Smoking Status: Current every day smoker Past Alcohol Use History: Abuse, Daily, Heavy Past Drug Use History: None Reported - Past Family History Mother Family Medical History: AFIB Additional Family Medical History / Comment(s): Mother is 81 yrs old. Father Family Medical History: Cancer Additional Family Medical History / Comment(s): Pt believes his father passed from lung cancer. He was a smoker. General Exam Limitations: no limitations General appearance: alert, in no apparent distress, other (Mild resting tremor) Head exam: Present: normocephalic Eye exam: Present: normal appearance Neck exam: Present: normal inspection Respiratory exam: Present: wheezes (Minimal expiratory wheeze) Cardiovascular Exam: Present: regular rate, normal rhythm GI/Abdominal exam: Present: soft. Absent: tenderness Extremities exam: Present: pedal edema (Trace bilateral). Absent: calf tenderness Back exam: Present: normal inspection Neurological exam: Present: alert Psychiatric exam: Present: normal affect, normal mood Skin exam: Present: normal color Course Vital Signs 01/19/22 01/19/22 01/19/22 08:52 08:56 09:33 Temperature 98.6 F Pulse Rate 97 87 Respiratory 20 20 18 Rate Blood Pressure 142/106 149/107 O2 Sat by Pulse 99 100 Oximetry 01/19/22 01/19/22 01/19/22 09:41 11:16 13:03 Temperature Pulse Rate 85 98 90 Respiratory 18 18 20 Rate Blood Pressure 160/88 154/100 O2 Sat by Pulse 99 96 Oximetry EKG Findings - EKG Comments: EKG Findings:: Sinus rhythm with a rate of 89. NJ 158. QRS 87. QT 342. QTC 389. Normal axis. Normal QRS. No acute ST change. Medical Decision Making - Medical Decision Making Patient has a left 21. Case discussed with Dr. Calix, who is covering Dr. sanchez - Lab Data Result diagrams: 01/19/22 09:29 01/19/22 09:29 Lab Results 01/19/22 01/19/22 01/19/22 Range/Units 09:29 09:29 09:29 WBC 2.5 L (3.8-10.6) k/uL RBC 4.04 L (4.30-5.90) m/uL Hgb 13.5 (13.0-17.5) gm/dL Hct 41.0 (39.0-53.0) % MCV 101.4 H (80.0-100.0) fL MCH 33.3 (25.0-35.0) pg MCHC 32.8 (31.0-37.0) g/dL RDW 15.1 (11.5-15.5) % Plt Count 173 (150-450) k/uL MPV 7.4 Neutrophils % 57 % Lymphocytes % 29 % Monocytes % 10 % Eosinophils % 0 % Basophils % 1 % Neutrophils # 1.4 (1.3-7.7) k/uL Lymphocytes # 0.7 L (1.0-4.8) k/uL Monocytes # 0.3 (0-1.0) k/uL Eosinophils # 0.0 (0-0.7) k/uL Basophils # 0.0 (0-0.2) k/uL Macrocytosis Slight PT 10.3 (9.0-12.0) sec INR 0.9 (<1.2) APTT 23.4 (22.0-30.0) sec D-Dimer 1.24 H (<0.60) mg/L FEU Sodium 139 (137-145) mmol/L Potassium 3.9 (3.5-5.1) mmol/L Chloride 101 (98-107) mmol/L Carbon Dioxide 29 (22-30) mmol/L Anion Gap 9 mmol/L BUN 5 L (9-20) mg/dL Creatinine 0.60 L (0.66-1.25) mg/dL Est GFR (CKD-EPI)AfAm >90 (>60 ml/min/1.73 sqM) Est GFR (CKD-EPI)NonAf >90 (>60 ml/min/1.73 sqM) Glucose 94 (74-99) mg/dL Lactic Ac Sepsis Rflx Plasma Lactic Acid Azam (0.7-2.0) mmol/L Calcium 8.2 L (8.4-10.2) mg/dL Magnesium 1.4 L (1.6-2.3) mg/dL Total Bilirubin 0.6 (0.2-1.3) mg/dL AST 64 H (17-59) U/L ALT 89 H (4-49) U/L Alkaline Phosphatase 62 (38-126) U/L Troponin I (0.000-0.034) ng/mL NT-Pro-B Natriuret Pep pg/mL Total Protein 6.8 (6.3-8.2) g/dL Albumin 4.1 (3.5-5.0) g/dL Coronavirus (PCR) (Not Detectd) Influenza Type A RNA (Not Detectd) Influenza Type B (PCR) (Not Detectd) 01/19/22 01/19/22 01/19/22 Range/Units 09:29 09:29 09:29 WBC (3.8-10.6) k/uL RBC (4.30-5.90) m/uL Hgb (13.0-17.5) gm/dL Hct (39.0-53.0) % MCV (80.0-100.0) fL MCH (25.0-35.0) pg MCHC (31.0-37.0) g/dL RDW (11.5-15.5) % Plt Count (150-450) k/uL MPV Neutrophils % % Lymphocytes % % Monocytes % % Eosinophils % % Basophils % % Neutrophils # (1.3-7.7) k/uL Lymphocytes # (1.0-4.8) k/uL Monocytes # (0-1.0) k/uL Eosinophils # (0-0.7) k/uL Basophils # (0-0.2) k/uL Macrocytosis PT (9.0-12.0) sec INR (<1.2) APTT (22.0-30.0) sec D-Dimer (<0.60) mg/L FEU Sodium (137-145) mmol/L Potassium (3.5-5.1) mmol/L Chloride (98-107) mmol/L Carbon Dioxide (22-30) mmol/L Anion Gap mmol/L BUN (9-20) mg/dL Creatinine (0.66-1.25) mg/dL Est GFR (CKD-EPI)AfAm (>60 ml/min/1.73 sqM) Est GFR (CKD-EPI)NonAf (>60 ml/min/1.73 sqM) Glucose (74-99) mg/dL Lactic Ac Sepsis Rflx Plasma Lactic Acid Azam 3.6 H* (0.7-2.0) mmol/L Calcium (8.4-10.2) mg/dL Magnesium (1.6-2.3) mg/dL Total Bilirubin (0.2-1.3) mg/dL AST (17-59) U/L ALT (4-49) U/L Alkaline Phosphatase (38-126) U/L Troponin I <0.012 (0.000-0.034) ng/mL NT-Pro-B Natriuret Pep 67 pg/mL Total Protein (6.3-8.2) g/dL Albumin (3.5-5.0) g/dL Coronavirus (PCR) (Not Detectd) Influenza Type A RNA (Not Detectd) Influenza Type B (PCR) (Not Detectd) 01/19/22 01/19/22 01/19/22 Range/Units 09:29 09:29 10:02 WBC (3.8-10.6) k/uL RBC (4.30-5.90) m/uL Hgb (13.0-17.5) gm/dL Hct (39.0-53.0) % MCV (80.0-100.0) fL MCH (25.0-35.0) pg MCHC (31.0-37.0) g/dL RDW (11.5-15.5) % Plt Count (150-450) k/uL MPV Neutrophils % % Lymphocytes % % Monocytes % % Eosinophils % % Basophils % % Neutrophils # (1.3-7.7) k/uL Lymphocytes # (1.0-4.8) k/uL Monocytes # (0-1.0) k/uL Eosinophils # (0-0.7) k/uL Basophils # (0-0.2) k/uL Macrocytosis PT (9.0-12.0) sec INR (<1.2) APTT (22.0-30.0) sec D-Dimer (<0.60) mg/L FEU Sodium (137-145) mmol/L Potassium (3.5-5.1) mmol/L Chloride (98-107) mmol/L Carbon Dioxide (22-30) mmol/L Anion Gap mmol/L BUN (9-20) mg/dL Creatinine (0.66-1.25) mg/dL Est GFR (CKD-EPI)AfAm (>60 ml/min/1.73 sqM) Est GFR (CKD-EPI)NonAf (>60 ml/min/1.73 sqM) Glucose (74-99) mg/dL Lactic Ac Sepsis Rflx Y Plasma Lactic Acid Azam (0.7-2.0) mmol/L Calcium (8.4-10.2) mg/dL Magnesium (1.6-2.3) mg/dL Total Bilirubin (0.2-1.3) mg/dL AST (17-59) U/L ALT (4-49) U/L Alkaline Phosphatase (38-126) U/L Troponin I (0.000-0.034) ng/mL NT-Pro-B Natriuret Pep pg/mL Total Protein (6.3-8.2) g/dL Albumin (3.5-5.0) g/dL Coronavirus (PCR) Not Detected (Not Detectd) Influenza Type A RNA Not Detected (Not Detectd) Influenza Type B (PCR) Not Detected (Not Detectd) 01/19/22 Range/Units 12:03 WBC (3.8-10.6) k/uL RBC (4.30-5.90) m/uL Hgb (13.0-17.5) gm/dL Hct (39.0-53.0) % MCV (80.0-100.0) fL MCH (25.0-35.0) pg MCHC (31.0-37.0) g/dL RDW (11.5-15.5) % Plt Count (150-450) k/uL MPV Neutrophils % % Lymphocytes % % Monocytes % % Eosinophils % % Basophils % % Neutrophils # (1.3-7.7) k/uL Lymphocytes # (1.0-4.8) k/uL Monocytes # (0-1.0) k/uL Eosinophils # (0-0.7) k/uL Basophils # (0-0.2) k/uL Macrocytosis PT (9.0-12.0) sec INR (<1.2) APTT (22.0-30.0) sec D-Dimer (<0.60) mg/L FEU Sodium (137-145) mmol/L Potassium (3.5-5.1) mmol/L Chloride (98-107) mmol/L Carbon Dioxide (22-30) mmol/L Anion Gap mmol/L BUN (9-20) mg/dL Creatinine (0.66-1.25) mg/dL Est GFR (CKD-EPI)AfAm (>60 ml/min/1.73 sqM) Est GFR (CKD-EPI)NonAf (>60 ml/min/1.73 sqM) Glucose (74-99) mg/dL Lactic Ac Sepsis Rflx Plasma Lactic Acid Azam 4.0 H* (0.7-2.0) mmol/L Calcium (8.4-10.2) mg/dL Magnesium (1.6-2.3) mg/dL Total Bilirubin (0.2-1.3) mg/dL AST (17-59) U/L ALT (4-49) U/L Alkaline Phosphatase (38-126) U/L Troponin I (0.000-0.034) ng/mL NT-Pro-B Natriuret Pep pg/mL Total Protein (6.3-8.2) g/dL Albumin (3.5-5.0) g/dL Coronavirus (PCR) (Not Detectd) Influenza Type A RNA (Not Detectd) Influenza Type B (PCR) (Not Detectd) - Radiology Data Radiology results: report reviewed (CT shows no evidence of pulmonary embolism.), image reviewed (Chest x-ray shows no acute process) Disposition Clinical Impression: Alcohol withdrawal syndrome Disposition: ADMITTED IP TO THIS HOSP Is patient prescribed a controlled substance at d/c from ED?: No Referrals: Ghada Albarado MD [Primary Care Provider] - 1-2 days Time of Disposition: 13:36
[2022-01-19 09:45] LABS: Basophils % (A) 1 %; Eosinophils % (A) 0 %; HGB 13.5 gm/dL (13.0-17.5); Lymphocytes # (A) 0.7 k/uL (1.0-4.8); Lymphocytes % (A) 29 %; MCH 33.3 pg (25.0-35.0); MCHC 32.8 g/dL (31.0-37.0); MCV 101.4 fL (80.0-100.0); Macrocytosis Slight; Mean Platelet Volume 7.4; Monocytes # (A) 0.3 k/uL (0-1.0); Monocytes % (A) 10 %; Neutrophils # (A) 1.4 k/uL (1.3-7.7); Neutrophils % (A) 57 %; Platelet Count 173 k/uL (150-450); RBC 4.04 m/uL (4.30-5.90); RDW 15.1 % (11.5-15.5); WBC 2.5 k/uL (3.8-10.6)
[2022-01-19 09:58] LABS: African American GFR (CKD) >90 (>60 ml/min/1.73 sqM); Albumin 4.1 g/dL (3.5-5.0); Anion Gap 9 mmol/L; Blood Urea Nitrogen 5 mg/dL (9-20); Carbon Dioxide 29 mmol/L (22-30); Chloride 101 mmol/L (98-107); Glucose 94 mg/dL (74-99); Non-African American GFR(CKD) >90 (>60 ml/min/1.73 sqM); Potassium 3.9 mmol/L (3.5-5.1); Sodium 139 mmol/L (137-145); Total Protein 6.8 g/dL (6.3-8.2)
[2022-01-19 10:00] LABS: ALT 89 U/L (4-49); AST 64 U/L (17-59); Alkaline Phosphatase 62 U/L (38-126); Calcium 8.2 mg/dL (8.4-10.2); Magnesium 1.4 mg/dL (1.6-2.3); Total Bilirubin 0.6 mg/dL (0.2-1.3)
[2022-01-19 10:19] LABS: INR 0.9 (<1.2); Partial Thromboplastin Time 23.4 sec (22.0-30.0); Prothrombin Time 10.3 sec (9.0-12.0)
--- NOTE | 2022-01-19 10:22 | XR ---
EXAMINATION TYPE: XR chest 2V DATE OF EXAM: 01/19/2022 COMPARISON: 01/19/2022 TECHNIQUE: PA and lateral views submitted. HISTORY: Difficulty breathing FINDINGS: The lungs are clear and there is no pneumothorax, pleural effusion, or focal pneumonia. Heart size is prominent. No overt failure. Biapical pleural thickening. IMPRESSION: 1. No acute process.
[2022-01-19] MEDS ORDERED: SODIUM CHLORIDE 0.9% 500 ML 500 ML IV STA (11:12)
[2022-01-19] MEDS ORDERED: SODIUM CHLORIDE 0.9% 1,000 ML IV STA (11:12)
--- NOTE | 2022-01-19 11:55 | CT ---
EXAMINATION TYPE: CT angio chest DATE OF EXAM: 01/19/2022 COMPARISON: CTA chest January 09, 2022 HISTORY: SOB, hx of PE CT DLP: 509.5 mGycm. Automated Exposure Control for Dose Reduction was Utilized. CONTRAST: CTA scan of the thorax is performed with IV Contrast, patient injected with 67cc mL of Isovue 370, pu lmonary embolism protocol. MIP Images are created on CT scanner and reviewed. FINDINGS: LUNGS: The lungs remain grossly clear, there is no new suspicious consolidation or focal groundglass opacity. There is no pleural effusion or pneumothorax seen. The tracheobronchial tree remains joseph nt. MEDIASTINUM: There is satisfactory enhancement of the pulmonary artery and its branches, there is no CT evidence for pulmonary embolism. There are no new greater than 1 cm hilar or mediastinal lymph no sujatha. No cardiomegaly or pericardial effusion is seen. Satisfactory enhancement of the thoracic aort a without dissection. Stable roughly 4.2 cm ascending aortic aneurysm on axial image 56. Prominent pu lmonary arteries redemonstrated. Persistent near 2.0 cm hypodense nodule in the thyroid isthmus axial image 1. OTHER: Bilateral flame shaped subareolar gynecomastia redemonstrated. Visualized liver markedly hypod ense consistent with diffuse fatty infiltration. IMPRESSION: No CT evidence for acute pulmonary embolism. No suspicious new acute pulmonary process. N o significant change from most recent last 2 CTs.
[2022-01-19] MEDS ORDERED: LORazepam 2 MG/ML INJ IV PRN (13:36)
[2022-01-19] MEDS ORDERED: NALOXONE 0.4 MG/ML 1 ML VIAL IV PRN (13:37)
[2022-01-19] MEDS ORDERED: SODIUM CHLORIDE 0.9% 1,000 ML IV ONE (13:47)
[2022-01-19] MEDS: LORazepam 2 MG/ML INJ IV PRN ×3 (13:53→20:42)
[2022-01-19] MEDS: DEXTROSE 5%-0.45% NACL 1,000 ML IV SCH (14:00)
[2022-01-19] MEDS: SODIUM CHLORIDE 0.9% 1,000 ML IV SCH ×2 (16:03→17:54)
[2022-01-19] MEDS ORDERED: LOPERAMIDE 2 MG CAP PO PRN (16:31)
[2022-01-19] MEDS: cloNIDine HCL 0.1 MG TAB PO SCH (17:55)
[2022-01-19] MEDS: RIVAROXABAN 20 MG TAB PO SCH (17:55)
[2022-01-19] MEDS: THIAMINE 100 MG TAB PO SCH (17:56)
--- NOTE | 2022-01-19 18:02 | HP ---
HISTORY AND PHYSICAL DATE OF SERVICE: 01/19/2022 CHIEF COMPLAINT: DTs and shortness of breath. HISTORY OF PRESENT ILLNESS: This 61-year-old gentleman with a past medical history of multiple medical problems, including DVT, history of atrial fibrillation, GERD, liver disease, also has a significant history of alcoholism. Patient takes a fifth of alcohol. The patient had tremors and other symptoms of DTs. The patient came to [facility]. The patient was also complaining of shortness of breath. The pulse ox was normal and D- dimer was elevated at 1.24. Lactic acid also was elevated. The patient underwent a CT angio of the chest which I reviewed personally; it showed no evidence of pulmonary embolism. There is no history of any fever, rigor or chills. PAST MEDICAL HISTORY: History of atrial fibrillation, DVT, history of liver disease, DJD. MEDICATIONS: Reviewed. They include Librium, vitamin B1. Doses and other medications are reviewed. ALLERGIES: PENICILLIN. FAMILY HISTORY: Atrial fibrillation. SOCIAL HISTORY: History of smoking, alcohol. REVIEW OF SYSTEMS: Fourteen-point review of systems negative except as mentioned earlier. PHYSICAL EXAMINATION: Pulse is 90, blood pressure 154/100, respirations 20. NECK: No jugular venous distention. No carotid bruit. No lymphadenopathy. Oral mucosa moist. CARDIOVASCULAR: S1, S2 regular. RESPIRATION: Breath sounds diminished at the bases. A few scattered rhonchi. No crackles. ABDOMEN: Soft, nontender. No mass palpable. LEGS: No edema. No swelling. NERVOUS SYSTEM: Higher functions as mentioned earlier. Cranial nerves normal. Diffuse weakness and diffuse tremors also present. JOINTS: No active deforming arthropathy. SKIN: No ulcer, rash, bleeding. LABS: Labs at this time are reviewed and include WBC 2.5. Lactic acid noted. ASSESSMENT: 1. Acute delirium tremens. 2. Shortness of breath, possible chronic obstructive pulmonary disease. 3. Elevated lactic acid, possibly secondary to dehydration. 4. Elevated D-dimer with no evidence of pulmonary embolism. 5. Atrial fibrillation. 6. History of deep vein thrombosis. 7. History of degenerative joint disease. 8. History of pulmonary embolism. RECOMMENDATIONS AND DISCUSSION: In this 61-year-old gentleman who presented with multiple complex medical issues, at this time I recommend to continue current medications. [facility] protocol. Resume the home medications. DVT prophylaxis. Otherwise, I would also recommend ultrasound of the legs. Continue the rest of the medications. Prognosis guarded. Further recommendations to follow. Recommend outpatient rehab also. Social Work and Case Management to follow. MMODL / IJN: [id number] /
[2022-01-19] MEDS ORDERED: SODIUM CHLORIDE 0.9% 500 ML 250 ML IV ONE (18:33)
[2022-01-19] MEDS: ALBUTEROL NEBULIZED 2.5 MG/3 ML INHALATION SCH (19:14)
[2022-01-19 19:59] LABS: Appearance,Urine Clear (Clear); Bilirubin,Urine Negative (Negative); Blood,Urine Negative (Negative); Color,Urine Yellow; Glucose,Urine (UA) Negative (Negative); Ketones,Urine Negative (Negative); Leukocyte Esterase,Urine Negative (Negative); Mucus,Urine Occasional /hpf; Nitrite,Urine Negative (Negative); Protein,Urine 1+ (Negative); RBC,Urine 1 /hpf (0-5); Specific Gravity,Urine 1.016 (1.001-1.035); Squamous Epithelial Cell,Urine <1 /hpf (0-4); Urobilinogen,Urine <2.0 mg/dL (<2.0); WBC,Urine <1 /hpf (0-5)
[2022-01-19] MEDS: FAMOTIDINE 20 MG TAB PO SCH (20:42)
[2022-01-19] MEDS: METOPROLOL TARTRATE 25 MG TAB PO SCH (20:42)
[2022-01-19] MEDS: ACETAMINOPHEN TAB 325 MG TAB PO PRN (20:53)
[2022-01-20] MEDS: chlordiazePOXIDE 25 MG CAP PO SCH ×4 (00:05→23:19)
[2022-01-20] MEDS: MAGNESIUM OXIDE 400 MG TAB PO SCH ×4 (00:05→23:19)
[2022-01-20] MEDS: LORazepam 2 MG/ML INJ IV PRN ×4 (00:06→20:32)
[2022-01-20] MEDS: cloNIDine HCL 0.1 MG TAB PO SCH ×3 (00:06→20:31)
[2022-01-20 06:04] LABS: Glucose,Whole Blood 97 mg/dL (75-99)
[2022-01-20] MEDS: PANTOPRAZOLE 40 MG TABLET PO SCH (06:04)
[2022-01-20] MEDS: THIAMINE 100 MG TAB PO SCH ×2 (06:04→17:32)
[2022-01-20] MEDS: ALBUTEROL NEBULIZED 2.5 MG/3 ML INHALATION SCH ×3 (07:17→21:37)
[2022-01-20 08:45] LABS: Basophils % (A) 1 %; Eosinophils % (A) 1 %; HCT 40.9 % (39.0-53.0); HGB 13.1 gm/dL (13.0-17.5); Lymphocytes # (A) 0.7 k/uL (1.0-4.8); Lymphocytes % (A) 30 %; MCH 32.6 pg (25.0-35.0); MCHC 31.9 g/dL (31.0-37.0); Macrocytosis Slight; Mean Platelet Volume 8.2; Monocytes # (A) 0.3 k/uL (0-1.0); Monocytes % (A) 12 %; Neutrophils # (A) 1.2 k/uL (1.3-7.7); Neutrophils % (A) 52 %; Platelet Count 135 k/uL (150-450); RBC 4.01 m/uL (4.30-5.90); RDW 14.1 % (11.5-15.5); WBC 2.2 k/uL (3.8-10.6)
[2022-01-20 08:51] LABS: ALT 72 U/L (4-49); AST 50 U/L (17-59); African American GFR (CKD) >90 (>60 ml/min/1.73 sqM); Albumin 3.9 g/dL (3.5-5.0); Alkaline Phosphatase 69 U/L (38-126); Anion Gap 7 mmol/L; Blood Urea Nitrogen 5 mg/dL (9-20); Calcium 8.4 mg/dL (8.4-10.2); Carbon Dioxide 28 mmol/L (22-30); Chloride 99 mmol/L (98-107); Glucose 101 mg/dL (74-99); Magnesium 1.2 mg/dL (1.6-2.3); Non-African American GFR(CKD) >90 (>60 ml/min/1.73 sqM); Potassium 3.9 mmol/L (3.5-5.1); Sodium 134 mmol/L (137-145); Total Bilirubin 2.5 mg/dL (0.2-1.3); Total Protein 6.6 g/dL (6.3-8.2)
[2022-01-20] MEDS: DULoxetine HCL 30 MG CAPSULE.DR PO SCH (09:03)
[2022-01-20] MEDS: FAMOTIDINE 20 MG TAB PO SCH ×2 (09:03→20:31)
[2022-01-20] MEDS: MULTIVITAMINS, THERA 1 EACH TAB PO SCH (09:03)
[2022-01-20] MEDS: RIVAROXABAN 20 MG TAB PO SCH (09:03)
[2022-01-20] MEDS: METOPROLOL TARTRATE 25 MG TAB PO SCH ×2 (09:03→20:31)
[2022-01-20] MEDS ORDERED: Magnesium Replacement Protocol 1 EACH MISC MISCELLANE PRN (09:26)
[2022-01-20] MEDS: MAGNESIUM SULFATE-D5W PMX 1 GM in DEXTROSE/WATER 1 100ML.BAG IVPB SCH ×3 (12:41→15:47)
[2022-01-20] MEDS: SODIUM CHLORIDE 0.9% 1,000 ML IV SCH (18:18)
[2022-01-20] MEDS: DEXTROSE 5%-0.45% NACL 1,000 ML IV SCH (18:18)
[2022-01-20] MEDS: ACETAMINOPHEN TAB 325 MG TAB PO PRN (20:31)
--- NOTE | 2022-01-21 00:48 | P.PN ---
Subjective Progress Note Date: 01/20/22 This is a pleasant 61-year-old male who was recently admitted with acute alcohol withdrawal with tremors and symptoms of delirium tremens and is being closely monitored. Patient reporting shortness of breath and d-dimer was elevated along with lactic acid and CT Angio was done showing no evidence of PE. Patient magnesium found to be critically low at 1.2 and will replace per protocol recommend repeat labs. Encouraged oral intake and will continue with [facility] protocol and closely monitor. Patient denies chest pain. Patient reports to occasional shortness of breath and currently on room air. Patient is mildly anxious on exam. Patient afebrile. Review of systems: Constitutional: No reports of fatigue, fever, or chills Cardiovascular: No reports of chest pain or palpitations Respiratory: reports of occasional shortness of breath GI: no reports of nausea, no reports of of vomiting, reports decreased appetite : No reports of dysuria or retention Neurovascular: reports of generalized weakness All medications have been reviewed Active Medications Acetaminophen (Acetaminophen Tab 325 Mg Tab) 650 mg PO Q6HR PRN PRN Reason: Mild Pain or Fever > 100.5 Last Admin: 01/19/22 20:53 Dose: 650 mg Documented by: Albuterol Sulfate (Albuterol Nebulized 2.5 Mg/3 Ml) 2.5 mg INHALATION RT-TID [facility] Last Admin: 01/20/22 07:17 Dose: 2.5 mg Documented by: Chlordiazepoxide HCl (Chlordiazepoxide 25 Mg Cap) 25 mg PO TID [facility] Last Admin: 01/20/22 00:05 Dose: 25 mg Documented by: Clonidine (Clonidine Hcl 0.1 Mg Tab) 0.1 mg PO BID [facility] Last Admin: 01/20/22 00:06 Dose: 0.1 mg Documented by: Duloxetine HCl (Duloxetine Hcl 30 Mg Capsule.Dr) 30 mg PO DAILY [facility] Famotidine (Famotidine 20 Mg Tab) 20 mg PO BID [facility] Last Admin: 01/19/22 20:42 Dose: 20 mg Documented by: Dextrose/Sodium Chloride (Dextrose 5%-1/2ns Iv Soln) 1,000 mls @ 20 mls/hr IV .Q24H [facility] Last Admin: 01/19/22 14:00 Dose: 20 mls/hr Documented by: Sodium Chloride (Saline 0.9%) 1,000 mls @ 75 mls/hr IV .[id number] [facility] Last Admin: 01/19/22 17:54 Dose: 75 mls/hr Documented by: Loperamide HCl (Loperamide 2 Mg Cap) 2 mg PO QID PRN PRN Reason: Diarrhea Lorazepam (Lorazepam 2 Mg/Ml Inj) 1 mg IV Q2HR PRN PRN Reason: CIWA 8 or 9 Last Admin: 01/19/22 18:08 Dose: 1 mg Documented by: Lorazepam (Lorazepam 2 Mg/Ml Inj) 1 mg IV Q1HR PRN PRN Reason: CIWA 10 to 15 Last Admin: 01/20/22 06:04 Dose: 1 mg Documented by: Lorazepam (Lorazepam 2 Mg/Ml Inj) 2 mg IV Q10M PRN PRN Reason: CIWA 16 or higher Stop: 01/21/22 13:37 Magnesium Oxide (Magnesium Oxide 400 Mg Tab) 400 mg PO TID [facility] Last Admin: 01/20/22 00:05 Dose: 400 mg Documented by: Metoprolol Tartrate (Metoprolol Tartrate 25 Mg Tab) 25 mg PO BID [facility] Last Admin: 01/19/22 20:42 Dose: 25 mg Documented by: Multivitamins (Multivitamins, Thera 1 Each Tab) 1 each PO DAILY [facility] Naloxone HCl (Naloxone 0.4 Mg/Ml 1 Ml Vial) 0.2 mg IV Q2M PRN PRN Reason: Opioid Reversal Pantoprazole Sodium (Pantoprazole 40 Mg Tablet) 40 mg PO AC-BRKFST [facility] Last Admin: 01/20/22 06:04 Dose: 40 mg Documented by: Rivaroxaban (Rivaroxaban 20 Mg Tab) 20 mg PO DAILY [facility]; Protocol Last Admin: 01/19/22 17:55 Dose: 20 mg Documented by: Thiamine HCl (Thiamine 100 Mg Tab) 100 mg PO BID-W/MEALS [facility] Last Admin: 01/20/22 06:04 Dose: 100 mg Documented by: PHYSICAL EXAMINATION: GENERAL: The patient is alert and oriented x4, Well developed, well nourished, anxious, pale HEENT: Pupils are round and equally reacting to light. EOMI. no scleral icterus. No conjunctival pallor. Normocephalic, atraumatic. No pharyngeal erythema. No thyromegaly. CARDIOVASCULAR: S1 and S2 muffled PULMONARY: diminished breath sounds bilaterally with no wheezing or rhonchi noted. ABDOMEN: soft. Nontender on exam. obese. non-distended, normoactive bowel sounds. No palpable organomegaly. MUSCULOSKELETAL: No joint swelling or deformity. EXTREMITIES: No cyanosis, clubbing, or pedal edema. NEUROLOGICAL: Gross neurological examination did not reveal any focal deficits. SKIN: No rashes. Assessment: Acute delirium tremens hypomagnesemia Shortness of breath, possible chronic obstructive pulmonary disease Elevated lactic acid, possibly secondary to dehydration Elevated d-dimer with no evidence of pulmonary embolism Atrial fibrillation history of deep vein thrombosis history of degenerative joint disease History of pulmonary embolism GI prophylaxis DVT prophylaxis Full code Plan: Recommend to continue with current medications and management. Patient being maintained on CIWA protocol and will continue. Patient magnesium found to be extremely low and will replace per protocol and repeat am labs. Encouraged i ncreased activity as tolerated. Encouraged oral intake. Patient continues with tremens noted on exam. Home medications reordered. Will consult social work for resources regarding alcohol rehab and AA meetings. Due to multiple complex medical issues, prognosis is guarded. Patient is high risk for readmissions. Further recommendations to follow based on the clinical course of the patient. The impression and plan of care has been dictated by Mariza Alberto nurse practitioner as directed. MD Davin I have performed a history and examination and MDM of this patient, discussed the same with the dictator, and agree with the dictator's assessment and plan as written ,documented as a scribe. Based on total visit time, I have performed more than 50% of the visit. Any additional findings or plans will be noted. Objective - Vital Signs Vital signs: Vital Signs Temp 98.6 F 01/20/22 04:00 Pulse 82 01/20/22 07:28 Resp 19 01/20/22 04:00 BP 161/89 01/20/22 04:00 Pulse Ox 94 L 01/20/22 04:00 Intake & Output 01/19/22 01/20/22 01/20/22 18:59 06:59 18:59 Output Total 900 Balance -900 Weight 113.398 kg 108 kg Output: Urine 900 - Labs CBC & Chem 7: 01/20/22 08:20 01/20/22 08:20 Labs: Abnormal Lab Results - Last 24 Hours (Table) 01/19/22 01/19/22 01/19/22 Range/Units 09:29 09:29 09:29 WBC 2.5 L (3.8-10.6) k/uL RBC 4.04 L (4.30-5.90) m/uL MCV 101.4 H (80.0-100.0) fL Plt Count (150-450) k/uL Neutrophils # (1.3-7.7) k/uL Lymphocytes # 0.7 L (1.0-4.8) k/uL D-Dimer 1.24 H (<0.60) mg/L FEU Sodium (137-145) mmol/L BUN 5 L (9-20) mg/dL Creatinine 0.60 L (0.66-1.25) mg/dL Glucose (74-99) mg/dL Plasma Lactic Acid Azam (0.7-2.0) mmol/L Calcium 8.2 L (8.4-10.2) mg/dL Magnesium 1.4 L (1.6-2.3) mg/dL Total Bilirubin (0.2-1.3) mg/dL AST 64 H (17-59) U/L ALT 89 H (4-49) U/L Urine Protein (Negative) Urine Mucus (None) /hpf 01/19/22 01/19/22 01/19/22 Range/Units 09:29 12:03 15:13 WBC (3.8-10.6) k/uL RBC (4.30-5.90) m/uL MCV (80.0-100.0) fL Plt Count (150-450) k/uL Neutrophils # (1.3-7.7) k/uL Lymphocytes # (1.0-4.8) k/uL D-Dimer (<0.60) mg/L FEU Sodium (137-145) mmol/L BUN (9-20) mg/dL Creatinine (0.66-1.25) mg/dL Glucose (74-99) mg/dL Plasma Lactic Acid Azam 3.6 H* 4.0 H* 2.6 H* (0.7-2.0) mmol/L Calcium (8.4-10.2) mg/dL Magnesium (1.6-2.3) mg/dL Total Bilirubin (0.2-1.3) mg/dL AST (17-59) U/L ALT (4-49) U/L Urine Protein (Negative) Urine Mucus (None) /hpf 01/19/22 01/20/22 01/20/22 Range/Units 18:10 08:20 08:20 WBC 2.2 L (3.8-10.6) k/uL RBC 4.01 L (4.30-5.90) m/uL MCV 102.0 H (80.0-100.0) fL Plt Count 135 L (150-450) k/uL Neutrophils # 1.2 L (1.3-7.7) k/uL Lymphocytes # 0.7 L (1.0-4.8) k/uL D-Dimer (<0.60) mg/L FEU Sodium 134 L (137-145) mmol/L BUN 5 L (9-20) mg/dL Creatinine 0.62 L (0.66-1.25) mg/dL Glucose 101 H (74-99) mg/dL Plasma Lactic Acid Azam (0.7-2.0) mmol/L Calcium (8.4-10.2) mg/dL Magnesium 1.2 L (1.6-2.3) mg/dL Total Bilirubin 2.5 H (0.2-1.3) mg/dL AST (17-59) U/L ALT 72 H (4-49) U/L Urine Protein 1+ H (Negative) Urine Mucus Occasional H (None) /hpf
[2022-01-21] MEDS: SODIUM CHLORIDE 0.9% 1,000 ML IV SCH ×2 (06:09→19:56)
[2022-01-21] MEDS: PANTOPRAZOLE 40 MG TABLET PO SCH (06:31)
[2022-01-21] MEDS: THIAMINE 100 MG TAB PO SCH ×2 (06:31→17:22)
[2022-01-21 08:15] LABS: Potassium 4.3 mmol/L (3.5-5.1)
[2022-01-21] MEDS: MAGNESIUM OXIDE 400 MG TAB PO SCH ×3 (08:38→23:22)
[2022-01-21] MEDS: METOPROLOL TARTRATE 25 MG TAB PO SCH ×2 (08:38→20:42)
[2022-01-21] MEDS: RIVAROXABAN 20 MG TAB PO SCH (08:38)
[2022-01-21] MEDS: cloNIDine HCL 0.1 MG TAB PO SCH ×2 (08:38→20:42)
[2022-01-21] MEDS: FAMOTIDINE 20 MG TAB PO SCH ×2 (08:38→20:42)
[2022-01-21] MEDS: MULTIVITAMINS, THERA 1 EACH TAB PO SCH (08:38)
[2022-01-21] MEDS: DULoxetine HCL 30 MG CAPSULE.DR PO SCH (08:38)
[2022-01-21] MEDS: chlordiazePOXIDE 25 MG CAP PO SCH ×3 (08:38→23:22)
[2022-01-21] MEDS: ALBUTEROL NEBULIZED 2.5 MG/3 ML INHALATION SCH ×3 (09:21→19:03)
[2022-01-21] MEDS ORDERED: LORazepam 1 MG TAB PO PRN (12:57)
--- NOTE | 2022-01-21 12:57 | P.PN ---
Subjective Progress Note Date: 01/21/22 This is a pleasant 61-year-old male who was recently admitted with acute alcohol withdrawal with tremors and symptoms of delirium tremens and is being closely monitored. Patient reporting shortness of breath and d-dimer was elevated along with lactic acid and CT Angio was done showing no evidence of PE. Patient magnesium found to be critically low at 1.2 and will replace per protocol recommend repeat labs. Encouraged oral intake and will continue with [facility] protocol and closely monitor. Patient denies chest pain. Patient reports to occasional shortness of breath and currently on room air. Patient is mildly anxious on exam. Patient afebrile. 01/21/2022 Patient is seen and evaluated and follow-up continues to remain on CIWA protocol and also was continued on a Librium taper and will continue. Appropriate home medications have been resumed. Tremens noted on exam. Patient has not required IV Ativan since last night and will continue to monitor for acute withdrawals. Magnesium was replaced and is currently 2.0. Potassium is 4.3. Will encourage increased activity as tolerated and encouraged oral intake. Will discuss with social work about resources for alcohol rehab. Patient is afebrile, patient denies increased shortness of breath or chest pains. Review of systems: Constitutional: No reports of fatigue, fever, or chills, reports feeling mildly anxious at times Cardiovascular: No reports of chest pain or palpitations Respiratory: reports of occasional shortness of breath GI: no reports of nausea, no reports of of vomiting, reports improved appetite today : No reports of dysuria or retention Neurovascular: reports of generalized weakness All medications have been reviewed Active Medications Acetaminophen (Acetaminophen Tab 325 Mg Tab) 650 mg PO Q6HR PRN PRN Reason: Mild Pain or Fever > 100.5 Last Admin: 01/20/22 20:31 Dose: 650 mg Documented by: Albuterol Sulfate (Albuterol Nebulized 2.5 Mg/3 Ml) 2.5 mg INHALATION RT-TID [facility] Last Admin: 01/21/22 09:21 Dose: 2.5 mg Documented by: Chlordiazepoxide HCl (Chlordiazepoxide 25 Mg Cap) 25 mg PO TID [facility] Last Admin: 01/21/22 08:38 Dose: 25 mg Documented by: Clonidine (Clonidine Hcl 0.1 Mg Tab) 0.1 mg PO BID [facility] Last Admin: 01/21/22 08:38 Dose: 0.1 mg Documented by: Duloxetine HCl (Duloxetine Hcl 30 Mg Capsule.Dr) 30 mg PO DAILY [facility] Last Admin: 01/21/22 08:38 Dose: 30 mg Documented by: Famotidine (Famotidine 20 Mg Tab) 20 mg PO BID [facility] Last Admin: 01/21/22 08:38 Dose: 20 mg Documented by: Dextrose/Sodium Chloride (Dextrose 5%-1/2ns Iv Soln) 1,000 mls @ 20 mls/hr IV .Q24H [facility] Last Admin: 01/20/22 18:18 Dose: Not Given Documented by: Sodium Chloride (Saline 0.9%) 1,000 mls @ 75 mls/hr IV .[id number] [facility] Last Admin: 01/21/22 06:09 Dose: Not Given Documented by: Loperamide HCl (Loperamide 2 Mg Cap) 2 mg PO QID PRN PRN Reason: Diarrhea Lorazepam (Lorazepam 2 Mg/Ml Inj) 1 mg IV Q2HR PRN PRN Reason: CIWA 8 or 9 Last Admin: 01/19/22 18:08 Dose: 1 mg Documented by: Lorazepam (Lorazepam 2 Mg/Ml Inj) 1 mg IV Q1HR PRN PRN Reason: CIWA 10 to 15 Last Admin: 01/20/22 20:32 Dose: 1 mg Documented by: Lorazepam (Lorazepam 2 Mg/Ml Inj) 2 mg IV Q10M PRN PRN Reason: CIWA 16 or higher Stop: 01/21/22 13:37 Magnesium Oxide (Magnesium Oxide 400 Mg Tab) 400 mg PO TID [facility] Last Admin: 01/21/22 08:38 Dose: 400 mg Documented by: Metoprolol Tartrate (Metoprolol Tartrate 25 Mg Tab) 25 mg PO BID [facility] Last Admin: 01/21/22 08:38 Dose: 25 mg Documented by: Miscellaneous Information (Magnesium Replacement Protocol 1 Each Misc) 1 each MISCELLANE DAILY PRN; Protocol PRN Reason: Per Protocol Multivitamins (Multivitamins, Thera 1 Each Tab) 1 each PO DAILY [facility] Last Admin: 01/21/22 08:38 Dose: 1 each Documented by: Naloxone HCl (Naloxone 0.4 Mg/Ml 1 Ml Vial) 0.2 mg IV Q2M PRN PRN Reason: Opioid Reversal Pantoprazole Sodium (Pantoprazole 40 Mg Tablet) 40 mg PO AC-BRKFST [facility] Last Admin: 01/21/22 06:31 Dose: 40 mg Documented by: Rivaroxaban (Rivaroxaban 20 Mg Tab) 20 mg PO DAILY [facility]; Protocol Last Admin: 01/21/22 08:38 Dose: 20 mg Documented by: Thiamine HCl (Thiamine 100 Mg Tab) 100 mg PO BID-W/MEALS [facility] Last Admin: 01/21/22 06:31 Dose: 100 mg Documented by: PHYSICAL EXAMINATION: GENERAL: The patient is alert and oriented x4, Well developed, well nourished, anxious, pale HEENT: Pupils are round and equally reacting to light. EOMI. no scleral icterus. No conjunctival pallor. Normocephalic, atraumatic. No pharyngeal erythema. No thyromegaly. CARDIOVASCULAR: S1 and S2 muffled PULMONARY: diminished breath sounds bilaterally with no wheezing or rhonchi noted. ABDOMEN: soft. Nontender on exam. obese. non-distended, normoactive bowel sounds. No palpable organomegaly. MUSCULOSKELETAL: No joint swelling or deformity. EXTREMITIES: No cyanosis, clubbing, or pedal edema. NEUROLOGICAL: Gross neurological examination did not reveal any focal deficits. SKIN: No rashes. Assessment: Acute delirium tremens hypomagnesemia, improved, 2.0 today Shortness of breath, possible chronic obstructive pulmonary disease Elevated lactic acid, possibly secondary to dehydration, improved Elevated d-dimer with no evidence of pulmonary embolism Atrial fibrillation history of deep vein thrombosis history of degenerative joint disease History of pulmonary embolism Continued ongoing alcohol use GI prophylaxis DVT prophylaxis Full code Plan: Recommend to continue with current medications and management. Patient being maintained on CIWA protocol and will continue. Patient magnesium replaced and is currently 2.0 today. Encouraged oral intake and patient reports to having more of an appetite today. Patient continues with tremens noted on exam and encouraged increased activity as tolerated. Patient maintained on Librium and will also add oral Ativan as patient has not required IV Ativan overnight. Will consult social work for resources regarding alcohol rehab and AA meetings. Due to multiple complex medical issues, prognosis is guarded. Patient is high risk for readmissions. Further recommendations to follow based on the clinical course of the patient. Possible discharge in 24 hours. The impression and plan of care has been dictated by Mariza Remy, nurse prac titioner as directed. MD Davin I have performed a history and examination and MDM of this patient, discussed the same with the dictator, and agree with the dictator's assessment and plan as written ,documented as a scribe. Based on total visit time, I have performed more than 50% of the visit. Any additional findings or plans will be noted. Objective - Vital Signs Vital signs: Vital Signs Temp 97.6 F 01/21/22 08:00 Pulse 59 L 01/21/22 08:00 Resp 16 01/21/22 08:00 BP 134/86 01/21/22 08:00 Pulse Ox 96 01/21/22 08:00 Intake & Output 01/20/22 01/21/22 01/21/22 18:59 06:59 18:59 Intake Total 360 120 Output Total 900 700 575 Balance -540 -700 -455 Intake: Oral 360 120 Output: Urine 900 700 575 Other: # Voids 0 2 - Labs CBC & Chem 7: 01/20/22 08:20 01/21/22 07:21
[2022-01-21] MEDS: DEXTROSE 5%-0.45% NACL 1,000 ML IV SCH (19:56)
[2022-01-21] MEDS: ACETAMINOPHEN TAB 325 MG TAB PO PRN (20:42)
[2022-01-22] MEDS: PANTOPRAZOLE 40 MG TABLET PO SCH (06:23)
[2022-01-22] MEDS: THIAMINE 100 MG TAB PO SCH (06:23)
[2022-01-22] MEDS: ALBUTEROL NEBULIZED 2.5 MG/3 ML INHALATION SCH ×2 (07:42→11:38)
[2022-01-22] MEDS: SODIUM CHLORIDE 0.9% 1,000 ML IV SCH (08:38)
[2022-01-22] MEDS: ACETAMINOPHEN TAB 325 MG TAB PO PRN (08:42)
[2022-01-22] MEDS: RIVAROXABAN 20 MG TAB PO SCH (08:43)
[2022-01-22] MEDS: MAGNESIUM OXIDE 400 MG TAB PO SCH (08:43)
[2022-01-22] MEDS: FAMOTIDINE 20 MG TAB PO SCH (08:43)
[2022-01-22] MEDS: cloNIDine HCL 0.1 MG TAB PO SCH (08:43)
[2022-01-22] MEDS: METOPROLOL TARTRATE 25 MG TAB PO SCH (08:43)
[2022-01-22] MEDS: chlordiazePOXIDE 25 MG CAP PO SCH (08:43)
[2022-01-22] MEDS: DULoxetine HCL 30 MG CAPSULE.DR PO SCH (08:43)
[2022-01-22] MEDS: MULTIVITAMINS, THERA 1 EACH TAB PO SCH (08:43)
[2022-01-22 09:10] LABS: African American GFR (CKD) >90 (>60 ml/min/1.73 sqM); Anion Gap 8 mmol/L; Blood Urea Nitrogen 9 mg/dL (9-20); Calcium 8.8 mg/dL (8.4-10.2); Carbon Dioxide 26 mmol/L (22-30); Chloride 101 mmol/L (98-107); Glucose 100 mg/dL (74-99); Magnesium 1.9 mg/dL (1.6-2.3); Non-African American GFR(CKD) >90 (>60 ml/min/1.73 sqM); Potassium 4.1 mmol/L (3.5-5.1); Sodium 135 mmol/L (137-145)
[2022-01-22 10:19] VITALS: RESP 18; TEMP 97.6
[2022-01-22 12:42] VITALS: BP 127/83; PULSE 65
--- NOTE | 2022-01-22 12:43 | DS ---
DISCHARGE SUMMARY FINAL DIAGNOSIS: 1. Acute delirium tremens. 2. Hypomagnesemia. 3. Chronic obstructive pulmonary disease. 4. Atrial fibrillation. 5. History of deep vein thrombosis. DISCHARGE DISPOSITION: The patient will be discharged in stable condition with guarded prognosis. HISTORY OF PRESENT ILLNESS: This 61-year-old gentleman, admitted with DTs and alcohol withdrawal symptoms, also had multiple medical issues, as listed above. Please refer to the previous dictation for further details. The patient improved significantly. Patient will be discharged home in stable condition with guarded prognosis. On exam, vitals are stable. CARDIOVASCULAR: S1, S2 muffled. RESPIRATION: A few scattered rhonchi. The patient discharged on home medications and also Catapres, a short dose of Ativan and folic acid. Recommend that he attend AA meetings and alcohol rehab. See discharge medication and reconciliation sheets for further details. Follow up with Dr. Albarado as recommended. MMODL / IJN: [id number] /
[2022-01-22] MEDS: DEXTROSE 5%-0.45% NACL 1,000 ML IV SCH (14:08)
== END 2022-01-22 14:18 | disposition home or self-care (01) | DRG 897 ==
LOC: EC 08:48 → 3SCARD 13:37
PROVIDERS: ADMIT Hospitalist; ATTEND Hospitalist
DX: F10.231 Alcohol dependence with withdrawal delirium (principal); D69.6 Thrombocytopenia, unspecified; K70.10 Alcoholic hepatitis without ascites; I48.91 Unspecified atrial fibrillation; E86.0 Dehydration; E83.42 Hypomagnesemia; F17.210 Nicotine dependence, cigarettes, uncomplicated; I73.9 Peripheral vascular disease, unspecified; J44.9 Chronic obstructive pulmonary disease, unspecified; Z20.822 Contact with and (suspected) exposure to COVID-19; I87.2 Venous insufficiency (chronic) (peripheral); K76.0 Fatty (change of) liver, not elsewhere classified; K21.9 Gastro-esophageal reflux disease without esophagitis; G47.33 Obstructive sleep apnea (adult) (pediatric); F32.A Depression, unspecified; F41.9 Anxiety disorder, unspecified; G89.29 Other chronic pain; M19.90 Unspecified osteoarthritis, unspecified site; M54.50 Low back pain, unspecified; Z71.6 Tobacco abuse counseling; Z79.01 Long term (current) use of anticoagulants; Z79.899 Other long term (current) drug therapy; Z86.718 Personal history of other venous thrombosis and embolism; Z86.711 Personal history of pulmonary embolism; Z87.820 Personal history of traumatic brain injury; Z86.14 Personal history of Methicillin resistant Staphylococcus aureus infection; Z87.2 Personal history of diseases of the skin and subcutaneous tissue; Z88.0 Allergy status to penicillin; Z82.49 Family history of ischemic heart disease and other diseases of the circulatory system; Z80.1 Family history of malignant neoplasm of trachea, bronchus and lung; Z81.2 Family history of tobacco abuse and dependence; Z71.41 Alcohol abuse counseling and surveillance of alcoholic
CPT/HCPCS: 36415; 71046; 71275; 80048; 80053; 81001; 83605; 83735; 83880; 84132; 84484; 85025; 85379; 85610; 85730; 87502; 87635; 93005; 94640; 96361; 96374; 96376; 99285

== ENCOUNTER 2022-02-26 15:45 | Emergency (ER) | payer OTHER ==
[2022-02-26] MEDS ORDERED: SODIUM CHLORIDE 0.9% 500 ML 500 ML IV STA (15:47)
[2022-02-26 15:49] VITALS: TEMP 98.2
[2022-02-26 16:11] LABS: Basophils # (A) 0.1 k/uL (0-0.2); Basophils % (A) 1 %; Eosinophils # (A) 0.1 k/uL (0-0.7); Eosinophils % (A) 2 %; HCT 43.4 % (39.0-53.0); HGB 14.2 gm/dL (13.0-17.5); Lymphocytes # (A) 0.6 k/uL (1.0-4.8); Lymphocytes % (A) 15 %; MCH 32.4 pg (25.0-35.0); MCHC 32.7 g/dL (31.0-37.0); MCV 99.2 fL (80.0-100.0); Mean Platelet Volume 7.3; Monocytes # (A) 0.3 k/uL (0-1.0); Monocytes % (A) 7 %; Neutrophils # (A) 2.8 k/uL (1.3-7.7); Neutrophils % (A) 73 %; Platelet Count 178 k/uL (150-450); RBC 4.38 m/uL (4.30-5.90); WBC 3.9 k/uL (3.8-10.6)
[2022-02-26 16:23] LABS: INR 0.9 (<1.2); Partial Thromboplastin Time 24.1 sec (22.0-30.0); Prothrombin Time 10.1 sec (9.0-12.0)
--- NOTE | 2022-02-26 16:27 | XR ---
EXAMINATION TYPE: XR chest 2V DATE OF EXAM: 02/26/2022 COMPARISON: X-ray dated 01/15/2022 HISTORY: Difficulty breathing TECHNIQUE: Frontal and lateral views of the chest are obtained. FINDINGS: Slightly prominent interstitial lung markings which could be age related or related to mild COPD hughes ges, please correlate clinically and with pulmonary function tests. Grossly unremarkable lungs otherwise. No sizable pleural effusion or definite pneumothorax. No gross cardiomegaly. No gross aggressive bone lesion. IMPRESSION: No acute pulmonary abnormality identified.
[2022-02-26 16:34] LABS: ALT 37 U/L (4-49); AST 39 U/L (17-59); African American GFR (CKD) >90 (>60 ml/min/1.73 sqM); Albumin 4.1 g/dL (3.5-5.0); Alkaline Phosphatase 63 U/L (38-126); Anion Gap 12 mmol/L; Blood Urea Nitrogen 11 mg/dL (9-20); Calcium 8.6 mg/dL (8.4-10.2); Carbon Dioxide 22 mmol/L (22-30); Chloride 106 mmol/L (98-107); Glucose 138 mg/dL (74-99); Magnesium 1.6 mg/dL (1.6-2.3); Non-African American GFR(CKD) >90 (>60 ml/min/1.73 sqM); Potassium 3.6 mmol/L (3.5-5.1); Sodium 140 mmol/L (137-145); Total Bilirubin 0.4 mg/dL (0.2-1.3); Total Protein 6.6 g/dL (6.3-8.2)
--- NOTE | 2022-02-26 16:36 | ED ---
General Adult HPI - General Chief complaint: Shortness of Breath Stated complaint: EDDIE Time Seen by Provider: 02/26/22 15:50 Source: patient, EMS, RN notes reviewed, old records reviewed Mode of arrival: EMS Limitations: no limitations - History of Present Illness Initial comments: This is a 61-year-old male who has a past medical history significant for smoking COPD. Patient states over the last couple of days he's felt his difficulty breathing is worse. Patient also states he has a history of DVT and is on Xarelto. Patient states he has no air-conditioning and has been very hot out lately. Patient denies chest pain or palpitations. Patient states he is a drinker and he drank yesterday but did not drink today. Patient states he could be dehydrated because of this. Patient denies any abdominal pain patient denies nausea vomiting diarrhea. - Related Data Home Medications Medication Instructions Recorded Confirmed Rivaroxaban [Xarelto] 20 mg PO DAILY 03/24/21 02/26/22 Multivitamins, Thera [Multivitamin 1 tab PO DAILY 01/09/22 02/26/22 (formulary)] Albuterol Inhaler [Ventolin Hfa 2 puff INHALATION RT-TID PRN 02/26/22 02/26/22 Inhaler] Famotidine [Pepcid] 20 mg PO BID PRN 02/26/22 02/26/22 Previous Rx's Medication Instructions Recorded Metoprolol Tartrate [Lopressor] 25 mg PO BID #60 tab 11/07/21 Thiamine [Vitamin B-1] 100 mg PO BID-W/MEALS #60 tab 11/07/21 Acetaminophen Tab [Tylenol] 650 mg PO Q6HR PRN tab 01/12/22 Magnesium Oxide [Mag-Ox] 400 mg PO TID 30 Days #90 tab 01/12/22 Allergies Allergy/AdvReac Type Severity Reaction Status Date / Time Penicillins Allergy Mild Rash/Hives Verified 02/26/22 17:40 Review of Systems ROS Statement: Those systems with pertinent positive or pertinent negative responses have been documented in the HPI. ROS Other: All systems not noted in ROS Statement are negative. Past Medical History Past Medical History: Atrial Fibrillation, COPD, Deep Vein Thrombosis (DVT), GERD/Reflux, Liver Disease, Osteoarthritis (OA), Pulmonary Embolus (PE), Skin Disorder, Sleep Apnea/CPAP/BIPAP, Vascular Disorder Additional Past Medical History / Comment(s): Pt recently admitted to [facility] on 12/26/21 with alcohol intoxication/withdrawl and possible copd. Other hx: ETOH abuse, alcoholic hepatitis, hepatic steatosis, chronic encephalopathy, t hrombocytopenia, 03/2020 fall with brain bleed-transferred from [facility] to [facility]-pt states he still has chronic headaches, chronic low back pain, PVD, chronic venous stasis dermatitis, past DVT R leg and PEs-laterallity unknown, SOB with exertion, LYRIC/no device, bilateral lower leg discolored/edematous. History of Any Multi-Drug Resistant Organisms: MRSA Date of last positivie culture/infection: 2006 MDRO Source:: unk Past Surgical History: Orthopedic Surgery Additional Past Surgical History / Comment(s): Left hand tendon surgery, EGD Past Anesthesia/Blood Transfusion Reactions: No Reported Reaction Past Psychological History: Anxiety, Depression Smoking Status: Current every day smoker Past Alcohol Use History: Abuse, Daily, Heavy Past Drug Use History: None Reported - Past Family History Mother Family Medical History: AFIB Additional Family Medical History / Comment(s): Mother is 81 yrs old. Father Family Medical History: Cancer Additional Family Medical History / Comment(s): Pt believes his father passed from lung cancer. He was a smoker. General Exam - General Exam Comments Initial Comments: GENERAL: Patient is well-developed and well-nourished. Patient is nontoxic and well- hydrated and is in mild distress. ENT: Neck is soft and supple. No significant lymphadenopathy is noted. Oropharynx is clear. Moist mucous membranes. Neck has full range of motion without eliciting any pain. EYES: The sclera were anicteric and conjunctiva were pink and moist. Extraocular movements were intact and pupils were equal round and reactive to light. Eyelids were unremarkable. PULMONARY: Unlabored respirations. Good breath sounds bilaterally. No audible rales rhonchi or wheezing was noted. CARDIOVASCULAR: There is a regular rate and rhythm without any murmurs gallops or rubs. ABDOMEN: Soft and nontender with normal bowel sounds. SKIN: Skin is clear with no lesions or rashes and otherwise unremarkable. NEUROLOGIC: Patient is alert and oriented x3. Cranial nerves II through XII are grossly intact. Motor and sensory are also intact. Normal speech, volume and content. Symmetrical smile. MUSCULOSKELETAL: Normal extremities with adequate strength and full range of motion. Right leg is bigger than the left because of a chronic DVT there is no change according to the patient. LYMPHATICS: No significant lymphadenopathy is noted PSYCHIATRIC: Normal psychiatric evaluation. Limitations: no limitations Course Vital Signs 02/26/22 02/26/22 02/26/22 15:46 17:00 18:17 Temperature 98.2 F Pulse Rate 112 H 103 H 101 H Respiratory 22 18 20 Rate Blood Pressure 118/94 157/95 142/98 O2 Sat by Pulse 96 93 L 96 Oximetry Medical Decision Making - Medical Decision Making EKG shows sinus tachycardia at 110 bpm WI interval 144 QRS is 88 QT interval 312 QTC is [address] segment elevation or depression. Chest x-ray shows no acute abnormality. CT of the chest shows no PE. Patient ambulated without problem. Patient got a ride to come pick him up. - Lab Data Result diagrams: 02/26/22 15:50 02/26/22 15:48 Lab Results 02/26/22 02/26/22 02/26/22 Range/Units 15:48 15:50 15:50 WBC (3.8-10.6) k/uL RBC (4.30-5.90) m/uL Hgb (13.0-17.5) gm/dL Hct (39.0-53.0) % MCV (80.0-100.0) fL MCH (25.0-35.0) pg MCHC (31.0-37.0) g/dL RDW (11.5-15.5) % Plt Count (150-450) k/uL MPV Neutrophils % % Lymphocytes % % Monocytes % % Eosinophils % % Basophils % % Neutrophils # (1.3-7.7) k/uL Lymphocytes # (1.0-4.8) k/uL Monocytes # (0-1.0) k/uL Eosinophils # (0-0.7) k/uL Basophils # (0-0.2) k/uL PT 10.1 (9.0-12.0) sec INR 0.9 (<1.2) APTT 24.1 (22.0-30.0) sec D-Dimer 0.71 H (<0.60) mg/L FEU Sodium 140 (137-145) mmol/L Potassium 3.6 (3.5-5.1) mmol/L Chloride 106 (98-107) mmol/L Carbon Dioxide 22 (22-30) mmol/L Anion Gap 12 mmol/L BUN 11 (9-20) mg/dL Creatinine 0.91 (0.66-1.25) mg/dL Est GFR (CKD-EPI)AfAm >90 (>60 ml/min/1.73 sqM) Est GFR (CKD-EPI)NonAf >90 (>60 ml/min/1.73 sqM) Glucose 138 H (74-99) mg/dL Lactic Ac Sepsis Rflx Plasma Lactic Acid Azam (0.7-2.0) mmol/L Calcium 8.6 (8.4-10.2) mg/dL Magnesium 1.6 (1.6-2.3) mg/dL Total Bilirubin 0.4 (0.2-1.3) mg/dL AST 39 (17-59) U/L ALT 37 (4-49) U/L Alkaline Phosphatase 63 (38-126) U/L Troponin I <0.012 (0.000-0.034) ng/mL NT-Pro-B Natriuret Pep pg/mL Total Protein 6.6 (6.3-8.2) g/dL Albumin 4.1 (3.5-5.0) g/dL Serum Alcohol 247 H* mg/dL 02/26/22 02/26/22 02/26/22 Range/Units 15:50 15:50 15:50 WBC 3.9 (3.8-10.6) k/uL RBC 4.38 (4.30-5.90) m/uL Hgb 14.2 (13.0-17.5) gm/dL Hct 43.4 (39.0-53.0) % MCV 99.2 (80.0-100.0) fL MCH 32.4 (25.0-35.0) pg MCHC 32.7 (31.0-37.0) g/dL RDW 13.0 (11.5-15.5) % Plt Count 178 (150-450) k/uL MPV 7.3 Neutrophils % 73 % Lymphocytes % 15 % Monocytes % 7 % Eosinophils % 2 % Basophils % 1 % Neutrophils # 2.8 (1.3-7.7) k/uL Lymphocytes # 0.6 L (1.0-4.8) k/uL Monocytes # 0.3 (0-1.0) k/uL Eosinophils # 0.1 (0-0.7) k/uL Basophils # 0.1 (0-0.2) k/uL PT (9.0-12.0) sec INR (<1.2) APTT (22.0-30.0) sec D-Dimer (<0.60) mg/L FEU Sodium (137-145) mmol/L Potassium (3.5-5.1) mmol/L Chloride (98-107) mmol/L Carbon Dioxide (22-30) mmol/L Anion Gap mmol/L BUN (9-20) mg/dL Creatinine (0.66-1.25) mg/dL Est GFR (CKD-EPI)AfAm (>60 ml/min/1.73 sqM) Est GFR (CKD-EPI)NonAf (>60 ml/min/1.73 sqM) Glucose (74-99) mg/dL Lactic Ac Sepsis Rflx Plasma Lactic Acid Azam 4.5 H* (0.7-2.0) mmol/L Calcium (8.4-10.2) mg/dL Magnesium (1.6-2.3) mg/dL Total Bilirubin (0.2-1.3) mg/dL AST (17-59) U/L ALT (4-49) U/L Alkaline Phosphatase (38-126) U/L Troponin I (0.000-0.034) ng/mL NT-Pro-B Natriuret Pep 33 pg/mL Total Protein (6.3-8.2) g/dL Albumin (3.5-5.0) g/dL Serum Alcohol mg/dL 02/26/22 Range/Units 16:40 WBC (3.8-10.6) k/uL RBC (4.30-5.90) m/uL Hgb (13.0-17.5) gm/dL Hct (39.0-53.0) % MCV (80.0-100.0) fL MCH (25.0-35.0) pg MCHC (31.0-37.0) g/dL RDW (11.5-15.5) % Plt Count (150-450) k/uL MPV Neutrophils % % Lymphocytes % % Monocytes % % Eosinophils % % Basophils % % Neutrophils # (1.3-7.7) k/uL Lymphocytes # (1.0-4.8) k/uL Monocytes # (0-1.0) k/uL Eosinophils # (0-0.7) k/uL Basophils # (0-0.2) k/uL PT (9.0-12.0) sec INR (<1.2) APTT (22.0-30.0) sec D-Dimer (<0.60) mg/L FEU Sodium (137-145) mmol/L Potassium (3.5-5.1) mmol/L Chloride (98-107) mmol/L Carbon Dioxide (22-30) mmol/L Anion Gap mmol/L BUN (9-20) mg/dL Creatinine (0.66-1.25) mg/dL Est GFR (CKD-EPI)AfAm (>60 ml/min/1.73 sqM) Est GFR (CKD-EPI)NonAf (>60 ml/min/1.73 sqM) Glucose (74-99) mg/dL Lactic Ac Sepsis Rflx Y Plasma Lactic Acid Azam (0.7-2.0) mmol/L Calcium (8.4-10.2) mg/dL Magnesium (1.6-2.3) mg/dL Total Bilirubin (0.2-1.3) mg/dL AST (17-59) U/L ALT (4-49) U/L Alkaline Phosphatase (38-126) U/L Troponin I (0.000-0.034) ng/mL NT-Pro-B Natriuret Pep pg/mL Total Protein (6.3-8.2) g/dL Albumin (3.5-5.0) g/dL Serum Alcohol mg/dL Disposition Clinical Impression: Acute alcohol intoxication Disposition: HOME SELF-CARE Instructions (If sedation given, give patient instructions): Alcohol Intoxication (ED) Is patient prescribed a controlled substance at d/c from ED?: No Referrals: Hernan Gonzales MD [Primary Care Provider] - 1-2 days Time of Disposition: 20:01
[2022-02-26 16:40] LABS: Alcohol 247 mg/dL
[2022-02-26 18:18] VITALS: BP 142/98; PULSE 101; RESP 20
--- NOTE | 2022-02-26 18:27 | CT ---
EXAMINATION TYPE: CT chest angio for PE DATE OF EXAM: 02/26/2022 COMPARISON: 01/19/2022 HISTORY: Elevated d-dimer, SOB, hx DVT/PE CT DLP: 457.9 mGycm Automated exposure control for dose reduction was used. CONTRAST: CT Chest for pulmonary embolism performed with with IV Contrast, patient injected with 100 mL of Isov ue 370. FINDINGS: LUNGS: The lungs are grossly clear, there is no concerning parenchymal mass or nodule identified. T here is no pleural effusion or pneumothorax seen. The tracheobronchial tree is patent. MEDIASTINUM: There is satisfactory enhancement of the pulmonary artery and its branches, there is no CT evidence for pulmonary embolism. There are no greater than 1 cm hilar or mediastinal lymph nodes. No pericardial effusion is seen. OTHER: No additional significant abnormality is seen. There is stable nodular thickening of the left adrenal gland. Hepatic steatosis noted. IMPRESSION: No acute PE or cardiopulmonary abnormality.
== END 2022-02-26 20:17 | disposition home or self-care (01) ==
LOC: EC 15:45
DX: F10.129 Alcohol abuse with intoxication, unspecified (principal); J44.9 Chronic obstructive pulmonary disease, unspecified; F17.200 Nicotine dependence, unspecified, uncomplicated; Z88.0 Allergy status to penicillin
CPT/HCPCS: 36415; 93005; 85379; 83880; 80053; 83605; 83735; 84484; 85025; 85610; 85730; 71046; 71275; 99285; 96360; G0480; Q9967; 80320

== ENCOUNTER 2022-02-27 00:03 | Emergency (ER) | payer OTHER ==
[2022-02-27 00:26] VITALS: TEMP 98.2
[2022-02-27] MEDS ORDERED: chlordiazePOXIDE 25 MG CAP PO STA (02:30)
[2022-02-27] MEDS ORDERED: LORazepam 1 MG TAB PO STA (02:31)
--- NOTE | 2022-02-27 06:36 | ED ---
General Adult HPI - General Chief complaint: Shortness of Breath Stated complaint: Alcohol Withdraw Time Seen by Provider: 02/27/22 01:28 Source: patient, EMS Mode of arrival: EMS Limitations: no limitations - History of Present Illness Initial comments: This patient is 61-year-old man who presents with complaint that he believes he is starting to have some withdrawal symptoms. The patient states that he has been drinking a moderate amount of hard alcohol. He states that now he is 71 is starting to feel shaky. He was seen earlier in the day for similar. Denies fever or chills. No headache or chest pain. The patient does state that he feels like he is having a breathing more rapidly. -: hour(s) Severity scale (1-10): 0 Quality: other (Shaky) Consistency: constant Improves with: none Worsens with: none Associated Symptoms: shortness of breath Treatments Prior to Arrival: none - Related Data Home Medications Medication Instructions Recorded Confirmed Rivaroxaban [Xarelto] 20 mg PO DAILY 03/24/21 02/26/22 Multivitamins, Thera [Multivitamin 1 tab PO DAILY 01/09/22 02/26/22 (formulary)] Albuterol Inhaler [Ventolin Hfa 2 puff INHALATION RT-TID PRN 02/26/22 02/26/22 Inhaler] Famotidine [Pepcid] 20 mg PO BID PRN 02/26/22 02/26/22 Previous Rx's Medication Instructions Recorded Metoprolol Tartrate [Lopressor] 25 mg PO BID #60 tab 11/07/21 Thiamine [Vitamin B-1] 100 mg PO BID-W/MEALS #60 tab 11/07/21 Acetaminophen Tab [Tylenol] 650 mg PO Q6HR PRN tab 01/12/22 Magnesium Oxide [Mag-Ox] 400 mg PO TID 30 Days #90 tab 01/12/22 chlordiazePOXIDE HCl [Librium] 25 mg PO TID 3 Days #9 capsule 02/27/22 Allergies Allergy/AdvReac Type Severity Reaction Status Date / Time Penicillins Allergy Mild Rash/Hives Verified 02/27/22 00:26 Review of Systems ROS Statement: Those systems with pertinent positive or pertinent negative responses have been documented in the HPI. ROS Other: All systems not noted in ROS Statement are negative. Constitutional: Denies: fever, chills Respiratory: Reports: as per HPI, dyspnea. Denies: cough, wheezes Cardiovascular: Denies: chest pain, palpitations, orthopnea, edema, syncope Gastrointestinal: Reports: nausea. Denies: abdominal pain, vomiting, diarrhea Genitourinary: Denies: dysuria Musculoskeletal: Denies: back pain Skin: Denies: rash Neurological: Denies: headache Psychiatric: Reports: anxiety Past Medical History Past Medical History: Atrial Fibrillation, COPD, Deep Vein Thrombosis (DVT), GERD/Reflux, Liver Disease, Osteoarthritis (OA), Pulmonary Embolus (PE), Skin Disorder, Sleep Apnea/CPAP/BIPAP, Vascular Disorder Additional Past Medical History / Comment(s): Pt recently admitted to [facility] on 12/26/21 with alcohol intoxication/withdrawl and possible copd. Other hx: ETOH abuse, alcoholic hepatitis, hepatic steatosis, chronic encephalopathy, thrombocytopenia, 03/2020 fall with brain bleed-transferred from [facility] to [facility]-pt states he still has chronic headaches, chronic low back pain, PVD, chronic venous stasis dermatitis, past DVT R leg and PEs-laterallity unknown, SOB with exertion, LYRIC/no device, bilateral lower leg discolored/edematous. History of Any Multi-Drug Resistant Organisms: MRSA Date of last positivie culture/infection: 2006 MDRO Source:: unk Past Surgical History: Orthopedic Surgery Additional Past Surgical History / Comment(s): Left hand tendon surgery, EGD Past Anesthesia/Blood Transfusion Reactions: No Reported Reaction Past Psychological History: Anxiety, Depression Smoking Status: Current every day smoker Past Alcohol Use History: Abuse, Daily, Heavy Past Drug Use History: None Reported - Past Family History Mother Family Medical History: AFIB Additional Family Medical History / Comment(s): Mother is 81 yrs old. Father Family Medical History: Cancer Additional Family Medical History / Comment(s): Pt believes his father passed from lung cancer. He was a smoker. General Exam Limitations: no limitations General appearance: alert, in no apparent distress Head exam: Present: atraumatic, normocephalic Eye exam: Present: normal appearance. Absent: scleral icterus, conjunctival injection Neck exam: Present: normal inspection, full ROM Respiratory exam: Present: normal lung sounds bilaterally. Absent: respiratory distress, wheezes, rales, rhonchi, stridor Cardiovascular Exam: Present: normal rhythm, tachycardia (Rate 104 at my exam), normal heart sounds. Absent: systolic murmur, diastolic murmur, rubs, gallop GI/Abdominal exam: Present: soft. Absent: distended, tenderness, guarding, rebound, rigid, mass, pulsatile mass Extremities exam: Present: normal inspection, normal capillary refill. Absent: pedal edema, calf tenderness Back exam: Present: normal inspection. Absent: CVA tenderness (R), CVA tenderness (L) Neurological exam: Present: alert Psychiatric exam: Present: anxious. Absent: homicidal ideation, suicidal ideation Skin exam: Present: warm, dry, intact, normal color. Absent: rash Course Vital Signs 02/27/22 02/27/22 00:22 07:34 Temperature 98.2 F Pulse Rate 111 H 80 Respiratory 20 18 Rate Blood Pressure 152/89 145/60 O2 Sat by Pulse 96 98 Oximetry Medical Decision Making - Medical Decision Making Patient is 61-year-old man who is a nearly daily drinker. He presents with com plaint that he is feeling shaky and that he is starting to have some withdrawal symptoms. We discussed outpatient management and he feels he is stable for this currently discussed day program versus inpatient rehab, patient will follow-up. Discussed appropriate return parameters Disposition Clinical Impression: Alcohol withdrawal syndrome Disposition: HOME SELF-CARE Condition: Fair Instructions (If sedation given, give patient instructions): Alcohol Withdrawal (ED) Prescriptions: chlordiazePOXIDE HCl [Librium] 25 mg PO TID 3 Days #9 capsule Is patient prescribed a controlled substance at d/c from ED?: No Referrals: Hernan Gonzales MD [Primary Care Provider] - 1-2 days
[2022-02-27 07:36] VITALS: BP 145/60; PULSE 80; RESP 18
== END 2022-02-27 07:36 | disposition home or self-care (01) ==
LOC: EC 00:03
DX: F10.239 Alcohol dependence with withdrawal, unspecified (principal); J44.9 Chronic obstructive pulmonary disease, unspecified; Z86.718 Personal history of other venous thrombosis and embolism; M19.90 Unspecified osteoarthritis, unspecified site; I48.91 Unspecified atrial fibrillation; F41.9 Anxiety disorder, unspecified; F32.A Depression, unspecified; Z79.51 Long term (current) use of inhaled steroids; F17.200 Nicotine dependence, unspecified, uncomplicated; Z88.0 Allergy status to penicillin
CPT/HCPCS: 93005; 99284

== ENCOUNTER 2022-03-01 13:47 | Inpatient (IN) | payer OTHER ==
[2022-03-01] MEDS ORDERED: SODIUM CHLORIDE 0.9% 1,000 ML IV STA ×2 (13:53→14:55)
[2022-03-01] MEDS ORDERED: methylPREDNISolone SOD SUCCI 125 MG/2 ML VIAL IV STA (13:53)
[2022-03-01] MEDS ORDERED: LORazepam 2 MG/ML INJ IV STA (13:57)
--- NOTE | 2022-03-01 14:06 | ED ---
SOB HPI - General Chief Complaint: Shortness of Breath Stated Complaint: Shortness of Breath Time Seen by Provider: 03/01/22 13:47 Source: patient, EMS, RN notes reviewed Mode of arrival: EMS Limitations: no limitations - History of Present Illness Initial Comments: 61-year-old male with a history of COPD history of alcoholism who drinks about one fifth of alcohol per day as a drink in 2 days who presents with complaints of shortness of breath onset this morning also with diaphoresis and shakiness. He has a cough it's productive when he is not sure what color the phlegm is as he swallows it. No chest pain he does have a history of A. fib he denies any palpitations at this time. MD Complaint: shortness of breath, anxiety - Related Data Home Medications Medication Instructions Recorded Confirmed Rivaroxaban [Xarelto] 20 mg PO DAILY 03/24/21 03/01/22 Multivitamins, Thera [Multivitamin 1 tab PO DAILY 01/09/22 03/01/22 (formulary)] Albuterol Inhaler [Ventolin Hfa 2 puff INHALATION RT-TID PRN 02/26/22 03/01/22 Inhaler] Famotidine [Pepcid] 20 mg PO BID PRN 02/26/22 03/01/22 Previous Rx's Medication Instructions Recorded Metoprolol Tartrate [Lopressor] 25 mg PO BID #60 tab 11/07/21 Thiamine [Vitamin B-1] 100 mg PO BID-W/MEALS #60 tab 11/07/21 Acetaminophen Tab [Tylenol] 650 mg PO Q6HR PRN tab 01/12/22 Magnesium Oxide [Mag-Ox] 400 mg PO TID 30 Days #90 tab 01/12/22 chlordiazePOXIDE HCl [Librium] 25 mg PO TID 3 Days #9 capsule 02/27/22 Allergies Allergy/AdvReac Type Severity Reaction Status Date / Time Penicillins Allergy Mild Rash/Hives Verified 03/01/22 13:53 Review of Systems ROS Statement: Those systems with pertinent positive or pertinent negative responses have been documented in the HPI. ROS Other: All systems not noted in ROS Statement are negative. Past Medical History Past Medical History: Atrial Fibrillation, COPD, Deep Vein Thrombosis (DVT), GERD/Reflux, Liver Disease, Osteoarthritis (OA), Pulmonary Embolus (PE), Skin Disorder, Sleep Apnea/CPAP/BIPAP, Vascular Disorder Additional Past Medical History / Comment(s): Pt recently admitted to [facility] on 12/26/21 with alcohol intoxication/withdrawl and possible copd. Other hx: ETOH abuse, alcoholic hepatitis, hepatic steatosis, chronic encephalopathy, thrombocytopenia, 03/2020 fall with brain bleed-transferred from [facility] to [facility]-pt states he still has chronic headaches, chronic low back pain, PVD, chronic venous stasis dermatitis, past DVT R leg and PEs-laterallity unknown, SOB with exertion, LYRIC/no device, bilateral lower leg discolored/edematous. History of Any Multi-Drug Resistant Organisms: MRSA Date of last positivie culture/infection: 2006 MDRO Source:: unk Past Surgical History: Orthopedic Surgery Additional Past Surgical History / Comment(s): Left hand tendon surgery, EGD Past Anesthesia/Blood Transfusion Reactions: No Reported Reaction Past Psychological History: Anxiety, Depression Smoking Status: Current every day smoker Past Alcohol Use History: Abuse, Daily, Heavy Past Drug Use History: None Reported - Past Family History Mother Family Medical History: AFIB Additional Family Medical History / Comment(s): Mother is 81 yrs old. Father Family Medical History: Cancer Additional Family Medical History / Comment(s): Pt believes his father passed from lung cancer. He was a smoker. General Exam - General Exam Comments Initial Comments: This is a well-developed well-nourished awake alert oriented 5 male who appears very anxious Limitations: no limitations General appearance: alert, anxious, in distress Head exam: Present: atraumatic, normocephalic, normal inspection Eye exam: Present: normal appearance, PERRL, EOMI. Absent: scleral icterus, conjunctival injection, periorbital swelling ENT exam: Present: normal exam, mucous membranes moist Neck exam: Present: normal inspection, full ROM, other. Absent: tenderness, meningismus, lymphadenopathy Respiratory exam: Present: accessory muscle use, decreased breath sounds. Absent: respiratory distress, wheezes, rales, rhonchi, stridor Cardiovascular Exam: Present: regular rate, normal rhythm, normal heart sounds. Absent: systolic murmur, diastolic murmur, rubs, gallop, clicks GI/Abdominal exam: Present: soft, normal bowel sounds. Absent: distended, tenderness, guarding, rebound, rigid Extremities exam: Present: normal inspection, full ROM, normal capillary refill. Absent: tenderness, pedal edema, joint swelling, calf tenderness Back exam: Present: normal inspection Neurological exam: Present: alert, oriented X3, CN II-XII intact Psychiatric exam: Present: normal affect, normal mood Skin exam: Present: warm, intact, normal color, diaphoretic. Absent: rash Course Vital Signs 03/01/22 03/01/22 13:48 14:36 Temperature 98.2 F Pulse Rate 97 89 Respiratory 22 18 Rate Blood Pressure 147/96 135/90 O2 Sat by Pulse 97 98 Oximetry - Reevaluation(s) Reevaluation #1: 03/01/22 15:40 reevaluation of the patient is showing improved to an he is in process of suffering from alcohol withdrawal. Reevaluation #2: 03/01/22 15:46 Elevated lactic acid is not to be secondary to I'm depletion and poor perfusion no current evidence of infectious processes Medical Decision Making - Medical Decision Making I did a long discussion with the patient in reevaluation patient has COPD exacerbation as well as alcohol withdrawal and impending DTs - Lab Data Result diagrams: 03/01/22 14:07 03/01/22 14:07 Lab Results 03/01/22 03/01/22 03/01/22 Range/Units 14:07 14:07 14:07 WBC 2.8 L (3.8-10.6) k/uL RBC 4.40 (4.30-5.90) m/uL Hgb 14.2 (13.0-17.5) gm/dL Hct 43.1 (39.0-53.0) % MCV 97.9 (80.0-100.0) fL MCH 32.3 (25.0-35.0) pg MCHC 33.0 (31.0-37.0) g/dL RDW 13.3 (11.5-15.5) % Plt Count 128 L (150-450) k/uL MPV 7.6 Neutrophils % 55 % Lymphocytes % 33 % Monocytes % 7 % Eosinophils % 2 % Basophils % 1 % Neutrophils # 1.6 (1.3-7.7) k/uL Lymphocytes # 0.9 L (1.0-4.8) k/uL Monocytes # 0.2 (0-1.0) k/uL Eosinophils # 0.0 (0-0.7) k/uL Basophils # 0.0 (0-0.2) k/uL PT 10.1 (9.0-12.0) sec INR 0.9 (<1.2) APTT 25.1 (22.0-30.0) sec Sodium 137 (137-145) mmol/L Potassium 4.3 (3.5-5.1) mmol/L Chloride 105 (98-107) mmol/L Carbon Dioxide 20 L (22-30) mmol/L Anion Gap 12 mmol/L BUN 6 L (9-20) mg/dL Creatinine 0.62 L (0.66-1.25) mg/dL Est GFR (CKD-EPI)AfAm >90 (>60 ml/min/1.73 sqM) Est GFR (CKD-EPI)NonAf >90 (>60 ml/min/1.73 sqM) Glucose 79 (74-99) mg/dL Plasma Lactic Acid Azam (0.7-2.0) mmol/L Calcium 7.9 L (8.4-10.2) mg/dL Magnesium 1.5 L (1.6-2.3) mg/dL Total Bilirubin 0.7 (0.2-1.3) mg/dL AST 62 H (17-59) U/L ALT 37 (4-49) U/L Alkaline Phosphatase 49 (38-126) U/L Troponin I (0.000-0.034) ng/mL NT-Pro-B Natriuret Pep pg/mL Total Protein 6.9 (6.3-8.2) g/dL Albumin 4.1 (3.5-5.0) g/dL 03/01/22 03/01/22 03/01/22 Range/Units 14:07 14:07 14:07 WBC (3.8-10.6) k/uL RBC (4.30-5.90) m/uL Hgb (13.0-17.5) gm/dL Hct (39.0-53.0) % MCV (80.0-100.0) fL MCH (25.0-35.0) pg MCHC (31.0-37.0) g/dL RDW (11.5-15.5) % Plt Count (150-450) k/uL MPV Neutrophils % % Lymphocytes % % Monocytes % % Eosinophils % % Basophils % % Neutrophils # (1.3-7.7) k/uL Lymphocytes # (1.0-4.8) k/uL Monocytes # (0-1.0) k/uL Eosinophils # (0-0.7) k/uL Basophils # (0-0.2) k/uL PT (9.0-12.0) sec INR (<1.2) APTT (22.0-30.0) sec Sodium (137-145) mmol/L Potassium (3.5-5.1) mmol/L Chloride (98-107) mmol/L Carbon Dioxide (22-30) mmol/L Anion Gap mmol/L BUN (9-20) mg/dL Creatinine (0.66-1.25) mg/dL Est GFR (CKD-EPI)AfAm (>60 ml/min/1.73 sqM) Est GFR (CKD-EPI)NonAf (>60 ml/min/1.73 sqM) Glucose (74-99) mg/dL Plasma Lactic Acid Azam 4.4 H* (0.7-2.0) mmol/L Calcium (8.4-10.2) mg/dL Magnesium (1.6-2.3) mg/dL Total Bilirubin (0.2-1.3) mg/dL AST (17-59) U/L ALT (4-49) U/L Alkaline Phosphatase (38-126) U/L Troponin I 0.017 (0.000-0.034) ng/mL NT-Pro-B Natriuret Pep <11 pg/mL Total Protein (6.3-8.2) g/dL Albumin (3.5-5.0) g/dL - EKG Data -: EKG Interpreted by Me EKG shows normal: sinus rhythm, axis, intervals, QRS complexes, ST-T waves Rate: normal EKG Comments: Normal sinus rhythm of 90. Interval 148 QRS duration 80 QT/QTC 345/[address]-T wave changes - Radiology Data Radiology results: report reviewed (Imaging reviewed as well as report no acute findings), image reviewed Disposition Clinical Impression: Acute exacerbation of chronic obstructive pulmonary disease, Alcohol withdrawal, Dehydration, Lactic acidosis Disposition: ADMITTED IP TO THIS HOSP Condition: Fair Referrals: Hernan Gonzales MD [Primary Care Provider] - 1-2 days
[2022-03-01 14:25] LABS: Basophils % (A) 1 %; Eosinophils % (A) 2 %; HCT 43.1 % (39.0-53.0); HGB 14.2 gm/dL (13.0-17.5); Lymphocytes # (A) 0.9 k/uL (1.0-4.8); Lymphocytes % (A) 33 %; MCH 32.3 pg (25.0-35.0); MCV 97.9 fL (80.0-100.0); Mean Platelet Volume 7.6; Monocytes # (A) 0.2 k/uL (0-1.0); Monocytes % (A) 7 %; Neutrophils # (A) 1.6 k/uL (1.3-7.7); Neutrophils % (A) 55 %; Platelet Count 128 k/uL (150-450); RDW 13.3 % (11.5-15.5); WBC 2.8 k/uL (3.8-10.6)
[2022-03-01 14:37] LABS: ALT 37 U/L (4-49); African American GFR (CKD) >90 (>60 ml/min/1.73 sqM); Anion Gap 12 mmol/L; Blood Urea Nitrogen 6 mg/dL (9-20); Calcium 7.9 mg/dL (8.4-10.2); Carbon Dioxide 20 mmol/L (22-30); Chloride 105 mmol/L (98-107); Glucose 79 mg/dL (74-99); Non-African American GFR(CKD) >90 (>60 ml/min/1.73 sqM); Sodium 137 mmol/L (137-145); Total Bilirubin 0.7 mg/dL (0.2-1.3)
[2022-03-01 14:39] LABS: INR 0.9 (<1.2); Partial Thromboplastin Time 25.1 sec (22.0-30.0); Prothrombin Time 10.1 sec (9.0-12.0)
[2022-03-01 14:42] LABS: Magnesium 1.5 mg/dL (1.6-2.3); Potassium 4.3 mmol/L (3.5-5.1)
[2022-03-01 14:43] LABS: AST 62 U/L (17-59); Albumin 4.1 g/dL (3.5-5.0); Alkaline Phosphatase 49 U/L (38-126); Total Protein 6.9 g/dL (6.3-8.2)
--- NOTE | 2022-03-01 14:51 | XR ---
EXAMINATION TYPE: XR chest 2V DATE OF EXAM: 03/01/2022 COMPARISON: 02/26/2022 HISTORY: Short of breath TECHNIQUE: FINDINGS: Heart is normal. Lungs are clear of infiltrate. No heart failure. There are no hilar masses . The bony thorax is intact IMPRESSION: Normal chest. No change.
[2022-03-01] MEDS ORDERED: MAGNESIUM SULFATE-D5W PMX 1 GM in DEXTROSE/WATER 1 100ML.BAG IVPB ONE (15:07)
--- NOTE | 2022-03-01 15:49 | ED ---
Medical Decision Making - Lab Data Result diagrams: 03/01/22 14:07 03/01/22 14:07 Lab Results 03/01/22 03/01/22 03/01/22 Range/Units 14:07 14:07 14:07 WBC 2.8 L (3.8-10.6) k/uL RBC 4.40 (4.30-5.90) m/uL Hgb 14.2 (13.0-17.5) gm/dL Hct 43.1 (39.0-53.0) % MCV 97.9 (80.0-100.0) fL MCH 32.3 (25.0-35.0) pg MCHC 33.0 (31.0-37.0) g/dL RDW 13.3 (11.5-15.5) % Plt Count 128 L (150-450) k/uL MPV 7.6 Neutrophils % 55 % Lymphocytes % 33 % Monocytes % 7 % Eosinophils % 2 % Basophils % 1 % Neutrophils # 1.6 (1.3-7.7) k/uL Lymphocytes # 0.9 L (1.0-4.8) k/uL Monocytes # 0.2 (0-1.0) k/uL Eosinophils # 0.0 (0-0.7) k/uL Basophils # 0.0 (0-0.2) k/uL PT 10.1 (9.0-12.0) sec INR 0.9 (<1.2) APTT 25.1 (22.0-30.0) sec Sodium 137 (137-145) mmol/L Potassium 4.3 (3.5-5.1) mmol/L Chloride 105 (98-107) mmol/L Carbon Dioxide 20 L (22-30) mmol/L Anion Gap 12 mmol/L BUN 6 L (9-20) mg/dL Creatinine 0.62 L (0.66-1.25) mg/dL Est GFR (CKD-EPI)AfAm >90 (>60 ml/min/1.73 sqM) Est GFR (CKD-EPI)NonAf >90 (>60 ml/min/1.73 sqM) Glucose 79 (74-99) mg/dL Plasma Lactic Acid Azam (0.7-2.0) mmol/L Calcium 7.9 L (8.4-10.2) mg/dL Magnesium 1.5 L (1.6-2.3) mg/dL Total Bilirubin 0.7 (0.2-1.3) mg/dL AST 62 H (17-59) U/L ALT 37 (4-49) U/L Alkaline Phosphatase 49 (38-126) U/L Troponin I (0.000-0.034) ng/mL NT-Pro-B Natriuret Pep pg/mL Total Protein 6.9 (6.3-8.2) g/dL Albumin 4.1 (3.5-5.0) g/dL 03/01/22 03/01/22 03/01/22 Range/Units 14:07 14:07 14:07 WBC (3.8-10.6) k/uL RBC (4.30-5.90) m/uL Hgb (13.0-17.5) gm/dL Hct (39.0-53.0) % MCV (80.0-100.0) fL MCH (25.0-35.0) pg MCHC (31.0-37.0) g/dL RDW (11.5-15.5) % Plt Count (150-450) k/uL MPV Neutrophils % % Lymphocytes % % Monocytes % % Eosinophils % % Basophils % % Neutrophils # (1.3-7.7) k/uL Lymphocytes # (1.0-4.8) k/uL Monocytes # (0-1.0) k/uL Eosinophils # (0-0.7) k/uL Basophils # (0-0.2) k/uL PT (9.0-12.0) sec INR (<1.2) APTT (22.0-30.0) sec Sodium (137-145) mmol/L Potassium (3.5-5.1) mmol/L Chloride (98-107) mmol/L Carbon Dioxide (22-30) mmol/L Anion Gap mmol/L BUN (9-20) mg/dL Creatinine (0.66-1.25) mg/dL Est GFR (CKD-EPI)AfAm (>60 ml/min/1.73 sqM) Est GFR (CKD-EPI)NonAf (>60 ml/min/1.73 sqM) Glucose (74-99) mg/dL Plasma Lactic Acid Azam 4.4 H* (0.7-2.0) mmol/L Calcium (8.4-10.2) mg/dL Magnesium (1.6-2.3) mg/dL Total Bilirubin (0.2-1.3) mg/dL AST (17-59) U/L ALT (4-49) U/L Alkaline Phosphatase (38-126) U/L Troponin I 0.017 (0.000-0.034) ng/mL NT-Pro-B Natriuret Pep <11 pg/mL Total Protein (6.3-8.2) g/dL Albumin (3.5-5.0) g/dL Disposition Clinical Impression: Acute exacerbation of chronic obstructive pulmonary disease, Alcohol withdrawal, Dehydration, Lactic acidosis, Hypomagnesemia Disposition: ADMITTED IP TO THIS HOSP Condition: Fair Referrals: Hernan Gonzales MD [Primary Care Provider] - 1-2 days Procedures - [place] Protocol (Time Out) Nurse: Wyatt Lundberg
[2022-03-01] MEDS ORDERED: ACETAMINOPHEN TAB 325 MG TAB PO PRN (15:51)
[2022-03-01] MEDS ORDERED: FAMOTIDINE 20 MG TAB PO PRN (15:51)
[2022-03-01] MEDS ORDERED: LORazepam 2 MG/ML INJ IV PRN ×2 (15:52)
[2022-03-01] MEDS ORDERED: THIAMINE 100 MG/ML 2 ML VIAL IM STA (15:52)
--- NOTE | 2022-03-01 15:53 | ED ---
Medical Decision Making - Lab Data Result diagrams: 03/01/22 14:07 03/01/22 14:07 Lab Results 03/01/22 03/01/22 03/01/22 Range/Units 14:07 14:07 14:07 WBC 2.8 L (3.8-10.6) k/uL RBC 4.40 (4.30-5.90) m/uL Hgb 14.2 (13.0-17.5) gm/dL Hct 43.1 (39.0-53.0) % MCV 97.9 (80.0-100.0) fL MCH 32.3 (25.0-35.0) pg MCHC 33.0 (31.0-37.0) g/dL RDW 13.3 (11.5-15.5) % Plt Count 128 L (150-450) k/uL MPV 7.6 Neutrophils % 55 % Lymphocytes % 33 % Monocytes % 7 % Eosinophils % 2 % Basophils % 1 % Neutrophils # 1.6 (1.3-7.7) k/uL Lymphocytes # 0.9 L (1.0-4.8) k/uL Monocytes # 0.2 (0-1.0) k/uL Eosinophils # 0.0 (0-0.7) k/uL Basophils # 0.0 (0-0.2) k/uL PT 10.1 (9.0-12.0) sec INR 0.9 (<1.2) APTT 25.1 (22.0-30.0) sec Sodium 137 (137-145) mmol/L Potassium 4.3 (3.5-5.1) mmol/L Chloride 105 (98-107) mmol/L Carbon Dioxide 20 L (22-30) mmol/L Anion Gap 12 mmol/L BUN 6 L (9-20) mg/dL Creatinine 0.62 L (0.66-1.25) mg/dL Est GFR (CKD-EPI)AfAm >90 (>60 ml/min/1.73 sqM) Est GFR (CKD-EPI)NonAf >90 (>60 ml/min/1.73 sqM) Glucose 79 (74-99) mg/dL Plasma Lactic Acid Azam (0.7-2.0) mmol/L Calcium 7.9 L (8.4-10.2) mg/dL Magnesium 1.5 L (1.6-2.3) mg/dL Total Bilirubin 0.7 (0.2-1.3) mg/dL AST 62 H (17-59) U/L ALT 37 (4-49) U/L Alkaline Phosphatase 49 (38-126) U/L Troponin I (0.000-0.034) ng/mL NT-Pro-B Natriuret Pep pg/mL Total Protein 6.9 (6.3-8.2) g/dL Albumin 4.1 (3.5-5.0) g/dL 03/01/22 03/01/22 03/01/22 Range/Units 14:07 14:07 14:07 WBC (3.8-10.6) k/uL RBC (4.30-5.90) m/uL Hgb (13.0-17.5) gm/dL Hct (39.0-53.0) % MCV (80.0-100.0) fL MCH (25.0-35.0) pg MCHC (31.0-37.0) g/dL RDW (11.5-15.5) % Plt Count (150-450) k/uL MPV Neutrophils % % Lymphocytes % % Monocytes % % Eosinophils % % Basophils % % Neutrophils # (1.3-7.7) k/uL Lymphocytes # (1.0-4.8) k/uL Monocytes # (0-1.0) k/uL Eosinophils # (0-0.7) k/uL Basophils # (0-0.2) k/uL PT (9.0-12.0) sec INR (<1.2) APTT (22.0-30.0) sec Sodium (137-145) mmol/L Potassium (3.5-5.1) mmol/L Chloride (98-107) mmol/L Carbon Dioxide (22-30) mmol/L Anion Gap mmol/L BUN (9-20) mg/dL Creatinine (0.66-1.25) mg/dL Est GFR (CKD-EPI)AfAm (>60 ml/min/1.73 sqM) Est GFR (CKD-EPI)NonAf (>60 ml/min/1.73 sqM) Glucose (74-99) mg/dL Plasma Lactic Acid Azam 4.4 H* (0.7-2.0) mmol/L Calcium (8.4-10.2) mg/dL Magnesium (1.6-2.3) mg/dL Total Bilirubin (0.2-1.3) mg/dL AST (17-59) U/L ALT (4-49) U/L Alkaline Phosphatase (38-126) U/L Troponin I 0.017 (0.000-0.034) ng/mL NT-Pro-B Natriuret Pep <11 pg/mL Total Protein (6.3-8.2) g/dL Albumin (3.5-5.0) g/dL Disposition Clinical Impression: Acute exacerbation of chronic obstructive pulmonary disease, Alcohol withdrawal, Dehydration, Lactic acidosis, Hypomagnesemia Disposition: ADMITTED IP TO THIS [facility] Condition: Fair Referrals: Hernan Gonzales MD [Primary Care Provider] - 1-2 days Decision Date: 03/01/22 Decision Time: 15:30 Procedures - [place] Protocol (Time Out) Nurse: Wyatt Lundberg
[2022-03-01] MEDS ORDERED: SODIUM CHLORIDE 0.9% 1,000 ML IV SCH (16:00)
[2022-03-01] MEDS ORDERED: THIAMINE 100 MG TAB PO SCH (17:30)
[2022-03-01] MEDS: ALBUTEROL HFA INHALER INHALATION STA ×2 (18:19→19:31)
[2022-03-01] MEDS: chlordiazePOXIDE 25 MG CAP PO SCH ×2 (18:20→21:19)
[2022-03-01] MEDS: MAGNESIUM OXIDE 400 MG TAB PO SCH ×2 (18:20→21:19)
[2022-03-01] MEDS: methylPREDNISolone SOD SUCCI 125 MG/2 ML VIAL IV SCH (18:21)
[2022-03-01] MEDS: IPRATROPIUM-ALBUTEROL 3 ML NEB INHALATION SCH ×2 (18:23→19:33)
[2022-03-01] MEDS: LORazepam 2 MG/ML INJ IV PRN (20:55)
[2022-03-01] MEDS: METOPROLOL TARTRATE 25 MG TAB PO SCH (21:19)
[2022-03-02] MEDS: DEXTROSE 5%-0.45% NACL 1,000 ML IV SCH ×4 (00:17→21:43)
[2022-03-02] MEDS: methylPREDNISolone SOD SUCCI 125 MG/2 ML VIAL IV SCH ×4 (00:26→17:09)
[2022-03-02] MEDS: LORazepam 2 MG/ML INJ IV PRN ×4 (00:26→21:39)
[2022-03-02] MEDS: IPRATROPIUM-ALBUTEROL 3 ML NEB INHALATION SCH ×4 (07:20→19:40)
[2022-03-02] MEDS: chlordiazePOXIDE 25 MG CAP PO SCH ×3 (09:21→21:39)
[2022-03-02] MEDS: MAGNESIUM OXIDE 400 MG TAB PO SCH ×3 (09:21→21:40)
[2022-03-02] MEDS: THIAMINE 100 MG TAB PO SCH ×2 (09:21→17:08)
[2022-03-02] MEDS: METOPROLOL TARTRATE 25 MG TAB PO SCH ×2 (09:21→21:40)
[2022-03-02] MEDS: MULTIVITAMINS, THERA 1 EACH TAB PO SCH (09:21)
[2022-03-02] MEDS: RIVAROXABAN 20 MG TAB PO SCH (09:21)
--- NOTE | 2022-03-02 19:57 | HP ---
HISTORY AND PHYSICAL CHIEF COMPLAINT: Difficulty breathing. HISTORY OF PRESENT ILLNESS: This is the first known admission for this 61-year-old white male who presented to the emergency room with acute shortness of breath. He is a heavy smoker. He was admitted with exacerbation of COPD. He has also had problems with chronic venous disease in the lower extremities and has a history of having bilateral pulmonary emboli twice in 2016 and 2019. Past medical history, family history personal and social histories reveal that he is ALLERGIC TO PENICILLIN. He is on Lasix 20 mg once a day, Symbicort 160/4.5 two puffs twice a day, Xarelto 20 mg once a day, metoprolol 25 mg twice a day. He does continue to smoke. PHYSICAL EXAMINATION: Temperature 96.3 with a respiratory rate of 39 and a pulse of 104. Blood pressure is 120/80. In general he appeared to be short of breath. Skin color was normal and skin was warm and dry. Head, ears, eyes, nose, mouth and throat were normal and neck veins were not distended. Thyroid was not enlarged. Chest demonstrated increased AP diameter with very poor breath sounds. There were scattered rales throughout. He had expiratory wheezing. Cardiac exam was normal sinus tachycardia. The abdomen was soft, nontender and there were no masses or visceromegaly. Bowel sounds were present. Extremities were normal. Neurologically he was intact. He is admitted to the hospital with the diagnoses: 1. Exacerbation of chronic obstructive pulmonary disease. 2. Venous insufficiency in lower extremities. 3. History of two episodes of pulmonary emboli. PLAN: 1. Bedrest. 2. IV fluids. 3. IV and inhaled steroids. 4. Updrafts. MMODL / IJN: [id number] /
--- NOTE | 2022-03-02 20:04 | PN ---
PROGRESS NOTE DATE OF SERVICE: 03/02/2022 CHIEF COMPLAINT: Chest pain and COPD. HISTORY OF PRESENT ILLNESS: This gentleman is doing a little bit better. Breathing seems to be a little bit more easy. He has had no chest pain. PHYSICAL EXAMINATION: Breath sounds are actually fairly good. There are only occasional rales and very little wheezing. The cardiac exam is normal. IMPRESSION: Exacerbation of chronic obstructive pulmonary disease. PLAN: Continue with current program and possibly home tomorrow. MMODL / IJN: [id number] /
[2022-03-03] MEDS: methylPREDNISolone SOD SUCCI 125 MG/2 ML VIAL IV SCH ×4 (00:17→17:27)
[2022-03-03] MEDS: DEXTROSE 5%-0.45% NACL 1,000 ML IV SCH ×3 (00:18→20:55)
[2022-03-03] MEDS: LORazepam 2 MG/ML INJ IV PRN (05:53)
[2022-03-03] MEDS: IPRATROPIUM-ALBUTEROL 3 ML NEB INHALATION SCH ×4 (07:11→21:05)
[2022-03-03] MEDS: RIVAROXABAN 20 MG TAB PO SCH (10:43)
[2022-03-03] MEDS: METOPROLOL TARTRATE 25 MG TAB PO SCH ×2 (10:44→22:02)
[2022-03-03] MEDS: THIAMINE 100 MG TAB PO SCH ×2 (10:44→16:30)
[2022-03-03] MEDS: MULTIVITAMINS, THERA 1 EACH TAB PO SCH (10:44)
[2022-03-03] MEDS: chlordiazePOXIDE 25 MG CAP PO SCH ×3 (10:45→22:02)
[2022-03-03] MEDS: MAGNESIUM OXIDE 400 MG TAB PO SCH ×3 (10:46→22:02)
[2022-03-03 12:27] LABS: Basophils % (A) 0 %; Eosinophils # (A) 0.1 k/uL (0-0.7); Eosinophils % (A) 1 %; HCT 44.4 % (39.0-53.0); HGB 14.8 gm/dL (13.0-17.5); Lymphocytes # (A) 0.5 k/uL (1.0-4.8); Lymphocytes % (A) 5 %; MCH 32.9 pg (25.0-35.0); MCHC 33.2 g/dL (31.0-37.0); MCV 99.1 fL (80.0-100.0); Mean Platelet Volume 8.2; Monocytes # (A) 0.4 k/uL (0-1.0); Monocytes % (A) 4 %; Neutrophils # (A) 8.5 k/uL (1.3-7.7); Neutrophils % (A) 90 %; Platelet Count 123 k/uL (150-450); RBC 4.48 m/uL (4.30-5.90); RDW 13.2 % (11.5-15.5); WBC 9.5 k/uL (3.8-10.6)
[2022-03-03 13:00] LABS: ALT 36 U/L (4-49); AST 35 U/L (17-59); African American GFR (CKD) >90 (>60 ml/min/1.73 sqM); Albumin 3.6 g/dL (3.5-5.0); Albumin/Globulin Ratio 1.4; Alkaline Phosphatase 57 U/L (38-126); Anion Gap 6 mmol/L; Blood Urea Nitrogen 8 mg/dL (9-20); Calcium 8.1 mg/dL (8.4-10.2); Carbon Dioxide 24 mmol/L (22-30); Chloride 106 mmol/L (98-107); Globulin 2.6 g/dL; Glucose 148 mg/dL (74-99); Non-African American GFR(CKD) >90 (>60 ml/min/1.73 sqM); Sodium 136 mmol/L (137-145); Total Bilirubin 0.4 mg/dL (0.2-1.3); Total Protein 6.2 g/dL (6.3-8.2)
--- NOTE | 2022-03-03 19:38 | PN ---
PROGRESS NOTE DATE OF SERVICE: 03/03/2022 CHIEF COMPLAINT: Exacerbation of COPD. HISTORY OF PRESENT ILLNESS: This gentleman has developed some tremors and is probably going into DTs. PHYSICAL EXAMINATION: Vital signs are normal. He seems to be awake and alert, but he is somewhat tremulous. Chest is clear. Cardiac exam is normal. Abdomen is soft, nontender. IMPRESSION: 1. Exacerbation of chronic obstructive pulmonary disease. 2. Acute alcohol intoxication. 3. Chronic alcoholism. 4. Impending delirium tremens. PLAN: Continue with current management, and we will watch for developing DTs. MMODL / IJN: [id number] /
[2022-03-04] MEDS: methylPREDNISolone SOD SUCCI 125 MG/2 ML VIAL IV SCH ×5 (01:35→23:11)
[2022-03-04] MEDS: DEXTROSE 5%-0.45% NACL 1,000 ML IV SCH ×4 (05:29→20:14)
[2022-03-04] MEDS: IPRATROPIUM-ALBUTEROL 3 ML NEB INHALATION SCH ×4 (07:23→20:46)
[2022-03-04] MEDS: MULTIVITAMINS, THERA 1 EACH TAB PO SCH (07:31)
[2022-03-04] MEDS: RIVAROXABAN 20 MG TAB PO SCH (07:32)
[2022-03-04] MEDS: chlordiazePOXIDE 25 MG CAP PO SCH ×3 (07:32→20:15)
[2022-03-04] MEDS: METOPROLOL TARTRATE 25 MG TAB PO SCH ×2 (07:32→20:15)
[2022-03-04] MEDS: MAGNESIUM OXIDE 400 MG TAB PO SCH ×3 (07:32→20:15)
[2022-03-04] MEDS: THIAMINE 100 MG TAB PO SCH ×2 (07:32→17:01)
[2022-03-04] MEDS ORDERED: LORazepam 1 MG TAB PO PRN ×2 (12:02)
--- NOTE | 2022-03-04 14:43 | XR ---
EXAMINATION TYPE: XR chest 2V DATE OF EXAM: 03/04/2022 COMPARISON: 03/01/2022 TECHNIQUE: PA and lateral views submitted. HISTORY: Shortness of breath FINDINGS: The lungs are clear and there is no pneumothorax, pleural effusion, or focal pneumonia. The promine nce of the pulmonary arteries with subsegmental changes at the left lung base. No overt failure. Mild hyperinflation. Correlate for asthma or COPD. IMPRESSION: 1. Left basilar atelectasis with prominence of the pulmonary arteries which can be associated with pu lmonary arterial hypertension.
--- NOTE | 2022-03-04 16:16 | PN ---
PROGRESS NOTE CHIEF COMPLAINT: COPD and DTs. HISTORY OF PRESENT ILLNESS: This gentleman is doing better. He is not as short of breath. He is still somewhat tremulous. PHYSICAL EXAMINATION: He does have some upper extremity tremors. Chest is fairly good with very few rales or rhonchi. Cardiac exam is normal. IMPRESSION: 1. Exacerbation of chronic obstructive pulmonary disease. 2. Alcoholism. 3. DTs. PLAN: 1. Wait 1 more day before discharge. 2. Repeat chest x-ray. MMODL / IJN: [id number] /
[2022-03-05] MEDS: methylPREDNISolone SOD SUCCI 125 MG/2 ML VIAL IV SCH ×2 (05:20→10:53)
[2022-03-05] MEDS: IPRATROPIUM-ALBUTEROL 3 ML NEB INHALATION SCH ×2 (07:39→10:54)
[2022-03-05] MEDS: DEXTROSE 5%-0.45% NACL 1,000 ML IV SCH (07:45)
[2022-03-05] MEDS: MULTIVITAMINS, THERA 1 EACH TAB PO SCH (08:06)
[2022-03-05] MEDS: MAGNESIUM OXIDE 400 MG TAB PO SCH (08:06)
[2022-03-05] MEDS: chlordiazePOXIDE 25 MG CAP PO SCH (08:06)
[2022-03-05] MEDS: THIAMINE 100 MG TAB PO SCH (08:06)
[2022-03-05] MEDS: RIVAROXABAN 20 MG TAB PO SCH (08:06)
[2022-03-05] MEDS: METOPROLOL TARTRATE 25 MG TAB PO SCH (08:06)
[2022-03-05 20:09] VITALS: BP 121/74; PULSE 61; RESP 20; TEMP 98.2
--- NOTE | 2022-03-05 23:08 | DS ---
DISCHARGE SUMMARY CHIEF COMPLAINT: Shortness of breath and alcohol intoxication. HISTORY OF PRESENT ILLNESS AND PHYSICAL EXAMINATION: Details of this man's history and physical can be found in the initial workup. LABORATORY STUDIES: While he was in the hospital, he had laboratory studies, details of which can be found in the laboratory section of his chart. COURSE IN THE HOSPITAL: After admission, he was placed on bedrest, started on intravenous fluids, updrafts and CIWA protocol. His breathing improved, but he remains slightly tremulous and in DTs. This continued to improve and he was doing well the morning of March 05 and it was felt he could be discharged. He will go home on his usual activity, diet and medications along with thiamine 100 mg twice a day and he will be followed up in the office in several days. FINAL DIAGNOSES: 1. Exacerbation of chronic obstructive pulmonary disease. 2. Alcohol intoxication. 3. Chronic alcoholism. 4. DTs. OPERATIONS: None. CONSULTATION: None. He is improved. MMCHRIS / ILENEN: [id number] /
== END 2022-03-05 13:18 | disposition home or self-care (01) | DRG 191 ==
LOC: EC 13:47 → 4SSUR 15:52
PROVIDERS: ADMIT Family Medicine; ATTEND Family Medicine
DX: J44.1 Chronic obstructive pulmonary disease with (acute) exacerbation (principal); E87.2 Acidosis; F10.231 Alcohol dependence with withdrawal delirium; G93.40 Encephalopathy, unspecified; F17.210 Nicotine dependence, cigarettes, uncomplicated; E83.42 Hypomagnesemia; G47.33 Obstructive sleep apnea (adult) (pediatric); M54.50 Low back pain, unspecified; G89.29 Other chronic pain; E86.0 Dehydration; I87.2 Venous insufficiency (chronic) (peripheral); D69.6 Thrombocytopenia, unspecified; F10.229 Alcohol dependence with intoxication, unspecified; Y90.5 Blood alcohol level of 100-119 mg/100 ml; F41.9 Anxiety disorder, unspecified; I48.91 Unspecified atrial fibrillation; I73.9 Peripheral vascular disease, unspecified; K76.0 Fatty (change of) liver, not elsewhere classified; K70.10 Alcoholic hepatitis without ascites; Z79.01 Long term (current) use of anticoagulants; Z79.899 Other long term (current) drug therapy; Z80.1 Family history of malignant neoplasm of trachea, bronchus and lung; Z86.711 Personal history of pulmonary embolism; Z79.51 Long term (current) use of inhaled steroids; Z88.0 Allergy status to penicillin; Z86.14 Personal history of Methicillin resistant Staphylococcus aureus infection; Z86.79 Personal history of other diseases of the circulatory system
CPT/HCPCS: 36415; 71046; 80053; 80320; 83605; 83735; 83880; 84484; 85025; 85610; 85730; 93005; 94640; 94760; 96374; 96375; 96376; 99285

== ENCOUNTER 2022-03-20 21:16 | Inpatient (IN) | payer OTHER ==
--- NOTE | 2022-03-20 21:32 | ED ---
Alcohol HPI - General Chief Complaint: Alcohol Stated Complaint: Alcohol Withdrawal Time Seen by Provider: 03/20/22 21:28 Source: EMS, RN notes reviewed, old records reviewed Mode of arrival: EMS Limitations: no limitations - History of Present Illness Initial Comments: This is a 61-year-old male was for evaluation. Patient does drink on a daily basis 1-2/5 of alcohol. Patient states he did drink today. Patient is concern for alcohol withdrawal not feeling well, shaking nausea vomiting. Patient has no other complaints patient doesn't medical history consisting of atrial fibrillation COPD high blood pressure. 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 -: minute(s) Previous Visits for Alcohol Intoxication?: Yes Recent Trauma: Yes Associated Symptoms: nausea Treatments Prior to Arrival: none Chronic Alcohol Use: Yes - Related Data Home Medications Medication Instructions Recorded Confirmed Rivaroxaban [Xarelto] 20 mg PO DAILY 03/24/21 03/01/22 Multivitamins, Thera [Multivitamin 1 tab PO DAILY 01/09/22 03/01/22 (formulary)] Albuterol Inhaler [Ventolin Hfa 2 puff INHALATION RT-TID PRN 02/26/22 03/01/22 Inhaler] Famotidine [Pepcid] 20 mg PO BID PRN 02/26/22 03/01/22 Previous Rx's Medication Instructions Recorded Metoprolol Tartrate [Lopressor] 25 mg PO BID #60 tab 11/07/21 Thiamine [Vitamin B-1] 100 mg PO BID-W/MEALS #60 tab 11/07/21 Acetaminophen Tab [Tylenol] 650 mg PO Q6HR PRN tab 01/12/22 Magnesium Oxide [Mag-Ox] 400 mg PO TID 30 Days #90 tab 01/12/22 chlordiazePOXIDE HCl [Librium] 25 mg PO TID 3 Days #9 capsule 02/27/22 Allergies Allergy/AdvReac Type Severity Reaction Status Date / Time Penicillins Allergy Mild Rash/Hives Verified 03/01/22 13:53 Review of Systems ROS Statement: Those systems with pertinent positive or pertinent negative responses have been documented in the HPI. ROS Other: All systems not noted in ROS Statement are negative. Past Medical History Past Medical History: Atrial Fibrillation, COPD, Deep Vein Thrombosis (DVT), GERD/Reflux, Liver Disease, Osteoarthritis (OA), Pulmonary Embolus (PE), Skin Disorder, Sleep Apnea/CPAP/BIPAP, Vascular Disorder Additional Past Medical History / Comment(s): Pt recently admitted to [facility] on 12/26/21 with alcohol intoxication/withdrawl and possible copd. Other hx: ETOH abuse, alcoholic hepatitis, hepatic steatosis, chronic encephalopathy, thrombocytopenia, 03/2020 fall with brain bleed-transferred from [facility] to [facility]-pt states he still has chronic headaches, chronic low back pain, PVD, chronic venous stasis dermatitis, past DVT R leg and PEs-laterallity unknown, SOB with exertion, LYRIC/no device, bilateral lower leg discolored/edematous. History of Any Multi-Drug Resistant Organisms: MRSA Date of last positivie culture/infection: 2006 MDRO Source:: unk Past Surgical History: Orthopedic Surgery Additional Past Surgical History / Comment(s): Left hand tendon surgery, EGD Past Anesthesia/Blood Transfusion Reactions: No Reported Reaction Past Psychological History: Anxiety, Depression Smoking Status: Current every day smoker - Past Family History Mother Family Medical History: AFIB Additional Family Medical History / Comment(s): Mother is 81 yrs old. Father Family Medical History: Cancer Additional Family Medical History / Comment(s): Pt believes his father passed from lung cancer. He was a smoker. General Exam General appearance: alert, in no apparent distress, anxious, in distress Head exam: Present: atraumatic, normocephalic, normal inspection Eye exam: Present: normal appearance, PERRL, EOMI. Absent: scleral icterus, conjunctival injection, periorbital swelling ENT exam: Present: normal exam, mucous membranes moist Neck exam: Present: normal inspection. Absent: tenderness, meningismus, lymphadenopathy Respiratory exam: Present: normal lung sounds bilaterally. Absent: respiratory distress, wheezes, rales, rhonchi, stridor Cardiovascular Exam: Present: normal rhythm, tachycardia, normal heart sounds. Absent: systolic murmur, diastolic murmur, rubs, gallop, clicks GI/Abdominal exam: Present: soft, normal bowel sounds. Absent: distended, tenderness, guarding, rebound, rigid Extremities exam: Present: normal inspection, full ROM, normal capillary refill. Absent: tenderness, pedal edema, joint swelling, calf tenderness Back exam: Present: normal inspection Neurological exam: Present: alert, oriented X3, CN II-XII intact Psychiatric exam: Present: normal affect, normal mood Skin exam: Present: warm, dry, intact, normal color. Absent: rash Course Vital Signs 03/20/22 21:22 Temperature 97.1 F L Pulse Rate 105 H Respiratory 18 Rate Blood Pressure 150/96 O2 Sat by Pulse 97 Oximetry - Reevaluation(s) Reevaluation #1: 03/20/22 21:52 Medical record is reviewed Reevaluation #2: 03/20/22 21:52 Patient does have some shaking, lightheadedness and dizziness Reevaluation #3: 03/20/22 22:31 Patient does feel improved here in the emergency department Reevaluation #4: 03/20/22 22:31 Patient for results and questions are answered - Consultations Consultation #1: Spoke with Dr. Gonzales regarding admission is agreeable Medical Decision Making - Medical Decision Making 61 male DF for alcohol intoxication, does go through withdrawal. Patient concern for dehydration, found alcohol ketoacidosis, pancreatitis, we will for resuscitation and monitoring - Lab Data Result diagrams: 03/20/22 21:30 03/20/22 21:30 Lab Results 03/20/22 03/20/22 03/20/22 Range/Units 21:30 21:30 21:30 WBC 6.9 (3.8-10.6) k/uL RBC 4.38 (4.30-5.90) m/uL Hgb 14.1 (13.0-17.5) gm/dL Hct 42.7 (39.0-53.0) % MCV 97.5 (80.0-100.0) fL MCH 32.3 (25.0-35.0) pg MCHC 33.1 (31.0-37.0) g/dL RDW 13.4 (11.5-15.5) % Plt Count 115 L (150-450) k/uL MPV 7.6 Neutrophils % 76 % Lymphocytes % 16 % Monocytes % 4 % Eosinophils % 1 % Basophils % 1 % Neutrophils # 5.3 (1.3-7.7) k/uL Lymphocytes # 1.1 (1.0-4.8) k/uL Monocytes # 0.3 (0-1.0) k/uL Eosinophils # 0.1 (0-0.7) k/uL Basophils # 0.1 (0-0.2) k/uL PT 9.9 (9.0-12.0) sec INR 0.9 (<1.2) Sodium 135 L (137-145) mmol/L Potassium 4.4 (3.5-5.1) mmol/L Chloride 98 (98-107) mmol/L Carbon Dioxide 17 L (22-30) mmol/L Anion Gap 20 mmol/L BUN 16 (9-20) mg/dL Creatinine 0.80 (0.66-1.25) mg/dL Est GFR (CKD-EPI)AfAm >90 (>60 ml/min/1.73 sqM) Est GFR (CKD-EPI)NonAf >90 (>60 ml/min/1.73 sqM) Glucose 88 (74-99) mg/dL Calcium 8.1 L (8.4-10.2) mg/dL Phosphorus 3.7 (2.5-4.5) mg/dL Magnesium 1.7 (1.6-2.3) mg/dL Total Bilirubin 1.5 H (0.2-1.3) mg/dL AST 92 H (17-59) U/L ALT 55 H (4-49) U/L Alkaline Phosphatase 92 (38-126) U/L Total Protein 7.0 (6.3-8.2) g/dL Albumin 4.3 (3.5-5.0) g/dL Lipase 384 H (23-300) U/L Serum Alcohol 272 H* mg/dL Disposition Clinical Impression: Acute alcohol intoxication, Alcoholic ketoacidosis, Alcohol withdrawal sy ndrome, Alcohol abuse, Alcohol withdrawal delirium, Pancreatitis Disposition: ADMITTED IP TO THIS HOSP Condition: Fair Is patient prescribed a controlled substance at d/c from ED?: No Referrals: Hernan Gonzales MD [Primary Care Provider] - 1-2 days
[2022-03-20] MEDS ORDERED: SODIUM CHLORIDE 0.9% 1,000 ML IV STA ×4 (21:33→21:34)
[2022-03-20] MEDS ORDERED: THIAMINE 100 MG/ML 2 ML VIAL IM STA (21:33)
[2022-03-20] MEDS ORDERED: LORazepam 2 MG/ML INJ IV PRN ×3 (21:33)
[2022-03-20] MEDS ORDERED: SODIUM CHLORIDE 0.9% 500 ML 500 ML IV STA (21:34)
[2022-03-20] MEDS ORDERED: chlordiazePOXIDE 25 MG CAP PO PRN ×2 (21:39)
[2022-03-20 21:48] LABS: Basophils # (A) 0.1 k/uL (0-0.2); Basophils % (A) 1 %; Eosinophils # (A) 0.1 k/uL (0-0.7); Eosinophils % (A) 1 %; HCT 42.7 % (39.0-53.0); HGB 14.1 gm/dL (13.0-17.5); Lymphocytes # (A) 1.1 k/uL (1.0-4.8); Lymphocytes % (A) 16 %; MCH 32.3 pg (25.0-35.0); MCHC 33.1 g/dL (31.0-37.0); MCV 97.5 fL (80.0-100.0); Mean Platelet Volume 7.6; Monocytes # (A) 0.3 k/uL (0-1.0); Monocytes % (A) 4 %; Neutrophils # (A) 5.3 k/uL (1.3-7.7); Neutrophils % (A) 76 %; Platelet Count 115 k/uL (150-450); RBC 4.38 m/uL (4.30-5.90); RDW 13.4 % (11.5-15.5); WBC 6.9 k/uL (3.8-10.6)
[2022-03-20 21:56] LABS: INR 0.9 (<1.2)
[2022-03-20 21:57] LABS: Prothrombin Time 9.9 sec (9.0-12.0)
[2022-03-20] MEDS: chlordiazePOXIDE 25 MG CAP PO PRN (22:11)
[2022-03-20 22:13] LABS: ALT 55 U/L (4-49); AST 92 U/L (17-59); African American GFR (CKD) >90 (>60 ml/min/1.73 sqM); Albumin 4.3 g/dL (3.5-5.0); Alkaline Phosphatase 92 U/L (38-126); Anion Gap 20 mmol/L; Blood Urea Nitrogen 16 mg/dL (9-20); Calcium 8.1 mg/dL (8.4-10.2); Carbon Dioxide 17 mmol/L (22-30); Chloride 98 mmol/L (98-107); Glucose 88 mg/dL (74-99); Lipase 384 U/L (23-300); Magnesium 1.7 mg/dL (1.6-2.3); Non-African American GFR(CKD) >90 (>60 ml/min/1.73 sqM); Phosphorus 3.7 mg/dL (2.5-4.5); Potassium 4.4 mmol/L (3.5-5.1); Sodium 135 mmol/L (137-145); Total Bilirubin 1.5 mg/dL (0.2-1.3)
[2022-03-20 22:19] LABS: Alcohol 272 mg/dL
[2022-03-20] MEDS ORDERED: ONDANSETRON 4 MG/2 ML VIAL IVP PRN (22:27)
[2022-03-20] MEDS ORDERED: NALOXONE 0.4 MG/ML 1 ML VIAL IV PRN (22:27)
[2022-03-21] MEDS: DEXTROSE 5%-0.45% NACL 1,000 ML IV SCH ×4 (04:42→19:17)
[2022-03-21 06:26] LABS: Basophils % (A) 1 %; Eosinophils % (A) 1 %; HCT 35.6 % (39.0-53.0); HGB 12.3 gm/dL (13.0-17.5); Lymphocytes # (A) 0.6 k/uL (1.0-4.8); Lymphocytes % (A) 22 %; MCH 33.4 pg (25.0-35.0); MCHC 34.5 g/dL (31.0-37.0); MCV 96.8 fL (80.0-100.0); Mean Platelet Volume 8.4; Monocytes # (A) 0.2 k/uL (0-1.0); Monocytes % (A) 6 %; Neutrophils # (A) 1.9 k/uL (1.3-7.7); Neutrophils % (A) 68 %; RBC 3.68 m/uL (4.30-5.90); RDW 13.4 % (11.5-15.5); WBC 2.8 k/uL (3.8-10.6)
[2022-03-21 06:39] LABS: Platelet Count 76 k/uL (150-450)
[2022-03-21 06:55] LABS: ALT 49 U/L (4-49); AST 72 U/L (17-59); African American GFR (CKD) >90 (>60 ml/min/1.73 sqM); Albumin 3.2 g/dL (3.5-5.0); Alkaline Phosphatase 74 U/L (38-126); Anion Gap 9 mmol/L; Blood Urea Nitrogen 13 mg/dL (9-20); Calcium 7.5 mg/dL (8.4-10.2); Carbon Dioxide 24 mmol/L (22-30); Chloride 100 mmol/L (98-107); Glucose 79 mg/dL (74-99); Lipase 198 U/L (23-300); Magnesium 1.6 mg/dL (1.6-2.3); Non-African American GFR(CKD) >90 (>60 ml/min/1.73 sqM); Potassium 4.1 mmol/L (3.5-5.1); Sodium 133 mmol/L (137-145); Total Bilirubin 1.9 mg/dL (0.2-1.3); Total Protein 5.6 g/dL (6.3-8.2)
[2022-03-21] MEDS ORDERED: THIAMINE 100 MG TAB PO SCH (07:30)
[2022-03-21] MEDS: PANTOPRAZOLE 40 MG/10 ML VIAL IV SCH (08:18)
[2022-03-21] MEDS: chlordiazePOXIDE 25 MG CAP PO PRN (10:13)
[2022-03-21 11:25] VITALS: BMI 29.9
[2022-03-21] MEDS ORDERED: FAMOTIDINE 20 MG TAB PO PRN (15:33)
[2022-03-21] MEDS: MAGNESIUM OXIDE 400 MG TAB PO SCH ×2 (16:15→20:56)
[2022-03-21] MEDS: ACETAMINOPHEN TAB 325 MG TAB PO PRN (16:15)
[2022-03-21] MEDS: THIAMINE 100 MG TAB PO SCH (17:35)
[2022-03-21] MEDS: METOPROLOL TARTRATE 25 MG TAB PO SCH (20:56)
[2022-03-22] MEDS: diazePAM 5 MG TAB PO SCH ×6 (02:05→21:21)
[2022-03-22] MEDS: DEXTROSE 5%-0.45% NACL 1,000 ML IV SCH ×3 (02:06→19:14)
[2022-03-22] MEDS: chlordiazePOXIDE 25 MG CAP PO PRN ×2 (02:06→08:18)
[2022-03-22] MEDS: MULTIVITAMINS, THERA 1 EACH TAB PO SCH (08:19)
[2022-03-22] MEDS: PANTOPRAZOLE 40 MG/10 ML VIAL IV SCH (08:19)
[2022-03-22] MEDS: RIVAROXABAN 20 MG TAB PO SCH (08:19)
[2022-03-22] MEDS: MAGNESIUM OXIDE 400 MG TAB PO SCH ×3 (08:19→21:21)
[2022-03-22] MEDS: METOPROLOL TARTRATE 25 MG TAB PO SCH ×2 (08:19→21:21)
[2022-03-22] MEDS: THIAMINE 100 MG TAB PO SCH ×2 (08:19→17:01)
[2022-03-22 11:12] LABS: Basophils % (A) 1 %; Eosinophils # (A) 0.1 k/uL (0-0.7); Eosinophils % (A) 2 %; HCT 37.3 % (39.0-53.0); HGB 12.8 gm/dL (13.0-17.5); Lymphocytes # (A) 0.6 k/uL (1.0-4.8); Lymphocytes % (A) 24 %; MCH 33.7 pg (25.0-35.0); MCHC 34.4 g/dL (31.0-37.0); MCV 97.8 fL (80.0-100.0); Mean Platelet Volume 8.9; Monocytes # (A) 0.1 k/uL (0-1.0); Monocytes % (A) 5 %; Neutrophils # (A) 1.6 k/uL (1.3-7.7); Neutrophils % (A) 66 %; RBC 3.82 m/uL (4.30-5.90); RDW 13.2 % (11.5-15.5); WBC 2.4 k/uL (3.8-10.6)
[2022-03-22 11:34] LABS: Platelet Count 63 k/uL (150-450)
[2022-03-23] MEDS: diazePAM 5 MG TAB PO SCH ×6 (01:52→21:35)
[2022-03-23] MEDS: DEXTROSE 5%-0.45% NACL 1,000 ML IV SCH ×3 (04:00→21:35)
--- NOTE | 2022-03-23 07:51 | HP ---
HISTORY AND PHYSICAL CHIEF COMPLAINT: DTs. HISTORY OF PRESENT ILLNESS: This is another admission for this 61-year-old white male. He is a chronic alcoholic. He also has COPD. In the emergency room his lipase was elevated at 384. Other laboratory studies included AST 92 and ALT 55. White count was 2800 and platelets were 76,000. REVIEW OF SYSTEMS: Unremarkable and he has no complaints. Past medical history, family history, personal and social histories are all otherwise unremarkable or unchanged from his recent admitting and discharge summaries. PHYSICAL EXAMINATION: Blood pressure is 144/92 with a pulse of 79, respirations of 30 and he is afebrile. In general he appeared to be overweight. He was somewhat lethargic. He did have tremors. Head, ears, eyes, nose, mouth and throat were otherwise normal. Chest is clear. Cardiac exam demonstrated a grade 2 or 3 systolic murmur. Abdomen is slightly protuberant, soft and nontender. Bowel sounds are present. Extremities are normal. Neurological: Intact. IMPRESSION: He is admitted to the hospital with diagnoses: 1. Delirium tremens. 2. Chronic alcoholism. 3. Pancreatitis. 4. Chronic obstructive pulmonary disease. 5. Thrombocytopenia. 6. Cardiac murmur. PLAN: 1. Bedrest. 2. CIWA protocol. 3. Follow lipase. MMODL / IJN: [id number] /
--- NOTE | 2022-03-23 07:57 | PN ---
PROGRESS NOTE DATE OF SERVICE: 03/21/2022 CHIEF COMPLAINT: DTs and pancreatitis. HISTORY OF PRESENT ILLNESS: This gentleman is doing fairly well. He has been stable. He has had no vomiting. He has had no fever chills. He is still in DTs. PHYSICAL EXAMINATION: Chest is clear. Cardiac exam is normal. Abdomen is soft, nontender. IMPRESSION: 1. Alcohol intoxication. 2. Chronic alcoholism. 3. Pancreatitis. 4. Chronic obstructive pulmonary disease. 5. Murmur. PLAN: Continue with [facility] protocol and monitor liver function studies, CBC and lipase. MMODL / IJN: [id number] /
[2022-03-23] MEDS: THIAMINE 100 MG TAB PO SCH ×2 (08:35→17:58)
[2022-03-23] MEDS: MAGNESIUM OXIDE 400 MG TAB PO SCH ×3 (08:35→21:35)
[2022-03-23] MEDS: METOPROLOL TARTRATE 25 MG TAB PO SCH ×2 (08:35→21:35)
[2022-03-23] MEDS: RIVAROXABAN 20 MG TAB PO SCH (08:35)
[2022-03-23] MEDS: PANTOPRAZOLE 40 MG TABLET PO SCH (08:35)
[2022-03-23] MEDS: MULTIVITAMINS, THERA 1 EACH TAB PO SCH ×2 (08:35→08:37)
[2022-03-23 12:25] LABS: Basophils % (A) 1 %; Eosinophils # (A) 0.1 k/uL (0-0.7); Eosinophils % (A) 5 %; HCT 38.6 % (39.0-53.0); HGB 13.3 gm/dL (13.0-17.5); Lymphocytes # (A) 0.6 k/uL (1.0-4.8); Lymphocytes % (A) 27 %; MCH 33.7 pg (25.0-35.0); MCHC 34.4 g/dL (31.0-37.0); Mean Platelet Volume 9.8; Monocytes # (A) 0.1 k/uL (0-1.0); Monocytes % (A) 6 %; Neutrophils # (A) 1.4 k/uL (1.3-7.7); Neutrophils % (A) 61 %; RBC 3.94 m/uL (4.30-5.90); RDW 13.1 % (11.5-15.5); WBC 2.3 k/uL (3.8-10.6)
[2022-03-23 12:28] LABS: Platelet Count 58 k/uL (150-450)
[2022-03-23 12:35] LABS: ALT 75 U/L (4-49); AST 95 U/L (17-59); African American GFR (CKD) >90 (>60 ml/min/1.73 sqM); Albumin 3.2 g/dL (3.5-5.0); Albumin/Globulin Ratio 1.2; Alkaline Phosphatase 74 U/L (38-126); Anion Gap 1 mmol/L; Blood Urea Nitrogen 7 mg/dL (9-20); Calcium 8.4 mg/dL (8.4-10.2); Carbon Dioxide 29 mmol/L (22-30); Chloride 103 mmol/L (98-107); Globulin 2.6 g/dL; Glucose 96 mg/dL (74-99); Lipase 159 U/L (23-300); Non-African American GFR(CKD) >90 (>60 ml/min/1.73 sqM); Potassium 4.1 mmol/L (3.5-5.1); Sodium 133 mmol/L (137-145); Total Protein 5.8 g/dL (6.3-8.2)
[2022-03-23] MEDS: ACETAMINOPHEN TAB 325 MG TAB PO PRN (13:10)
--- NOTE | 2022-03-23 18:04 | PN ---
PROGRESS NOTE DATE OF SERVICE: 03/22/2022 CHIEF COMPLAINT: Acute alcohol intoxication and DTs with pancreatitis. HISTORY OF PRESENT ILLNESS: This gentleman is still somewhat tremulous and a little bit lethargic. He is not having any abdominal pain. Platelets are still low as is his white count. PHYSICAL EXAM: Vital signs are normal. Head, ears, eyes, nose, mouth and throat are normal. Chest is clear. Cardiac exam is normal and the abdomen is protuberant, soft and nontender. IMPRESSION: 1. Acute alcohol intoxication. 2. Chronic alcoholism. 3. DTs. 4. Pancreatitis. PLAN: Continue with current program and reassess CBC and lipase tomorrow. MMODL / IJN: [id number] /
--- NOTE | 2022-03-23 18:34 | PN ---
PROGRESS NOTE CHIEF COMPLAINT: Alcoholism with pancreatitis. HISTORY OF PRESENT ILLNESS: This gentleman is doing fairly well. He is not in dao DTs today. He still feels weak. White count and platelet count are down slightly. PHYSICAL EXAMINATION: Chest is clear. Cardiac exam is normal. Abdomen is soft, nontender. IMPRESSION: 1. Acute alcohol intoxication. 2. Chronic alcoholism. 3. Pancreatitis. 4. Leukopenia. 5. Thrombocytopenia. PLAN: Continue to monitor his labs while increasing his activity. MMODL / IJN: [id number] /
[2022-03-24] MEDS: diazePAM 5 MG TAB PO SCH ×6 (02:02→21:12)
[2022-03-24] MEDS: DEXTROSE 5%-0.45% NACL 1,000 ML IV SCH ×2 (05:52→16:13)
[2022-03-24] MEDS: RIVAROXABAN 20 MG TAB PO SCH (08:41)
[2022-03-24] MEDS: PANTOPRAZOLE 40 MG TABLET PO SCH (08:41)
[2022-03-24] MEDS: METOPROLOL TARTRATE 25 MG TAB PO SCH ×2 (08:42→21:12)
[2022-03-24] MEDS: MAGNESIUM OXIDE 400 MG TAB PO SCH ×3 (08:42→21:12)
[2022-03-24] MEDS: THIAMINE 100 MG TAB PO SCH ×2 (08:42→16:13)
--- NOTE | 2022-03-24 19:29 | PN ---
PROGRESS NOTE CHIEF COMPLAINT: Acute alcohol intoxication and DTs. HISTORY OF PRESENT ILLNESS: This gentleman is doing better. However, his liver enzymes are up and his white count and platelets are down. PHYSICAL EXAMINATION: Chest is clear. Cardiac exam is normal. He still feels shaky. He is not in dao DTs at this time. IMPRESSION: 1. Delirium tremens. 2. Chronic alcoholism. 3. Hyper . 4. Leukopenia. PLAN: Continue to follow bone marrow values. He may sign out AMA. MMODL / IJN: [id number] /
[2022-03-24] MEDS: ACETAMINOPHEN TAB 325 MG TAB PO PRN (20:00)
[2022-03-24 21:09] VITALS: RESP 18
[2022-03-25] MEDS: DEXTROSE 5%-0.45% NACL 1,000 ML IV SCH ×3 (01:51→21:32)
[2022-03-25] MEDS: diazePAM 5 MG TAB PO SCH ×6 (01:51→21:32)
[2022-03-25] MEDS: PANTOPRAZOLE 40 MG TABLET PO SCH (07:43)
[2022-03-25] MEDS: MAGNESIUM OXIDE 400 MG TAB PO SCH ×3 (07:43→21:32)
[2022-03-25] MEDS: RIVAROXABAN 20 MG TAB PO SCH (07:43)
[2022-03-25] MEDS: METOPROLOL TARTRATE 25 MG TAB PO SCH ×2 (07:43→21:32)
[2022-03-25] MEDS: MULTIVITAMINS, THERA 1 EACH TAB PO SCH (07:43)
[2022-03-25] MEDS: THIAMINE 100 MG TAB PO SCH ×2 (07:43→17:20)
--- NOTE | 2022-03-25 20:30 | PN ---
PROGRESS NOTE DATE OF SERVICE: 03/25/2022 CHIEF COMPLAINT: Acute alcohol intoxication, DTs, alcoholic hepatitis, thrombocytopenia, leukopenia. HISTORY OF PRESENT ILLNESS: This gentleman is doing well and he is feeling well, but his laboratory numbers are still deteriorating. Liver function studies are up again slightly. Platelets are down slightly at 58,000 and white count remains low. REVIEW OF SYSTEMS: He feels well. PHYSICAL EXAMINATION: His chest is clear and the cardiac exam is normal. Abdomen is soft, nontender. IMPRESSION: 1. Acute alcohol intoxication. 2. Delirium tremens. 3. Chronic alcoholism. 4. Cirrhosis. 5. Leukopenia. 6. Pancytopenia. 7. Alcoholic hepatitis. PLAN: 1. Hold as an inpatient until his bone marrow recovers. 2. Stop his rivaroxaban. MMBLANKAL / ILENEN: [id number] /
[2022-03-25 22:54] LABS: Basophils # (A) 0.01 X 10*3/uL (0.00-0.10); Basophils % (A) 0.3 %; Eosinophils # (A) 0.07 X 10*3/uL (0.04-0.35); Eosinophils % (A) 2.1 %; HCT 42.1 % (39.6-50.0); HGB 13.4 g/dL (13.0-17.0); Immature Grans, Automated 0.3 %; Lymphocytes # (A) 0.87 X 10*3/uL (0.90-5.00); Lymphocytes % (A) 25.8 %; MCH 30.9 pg (27.0-32.0); MCHC 31.8 g/dL (32.0-37.0); MCV 97.2 fL (80.0-97.0); Mean Platelet Volume 12.7 fL (9.5-12.2); Monocytes % (A) 17.8 %; NRBC Per 100 WBC 0 /100 WBCS (0.0-0.0); Neutrophils # (A) 1.81 X 10*3/uL (1.80-7.70); Neutrophils % (A) 53.7 %; Platelet Count 92 X 10*3/uL (140-440); RBC 4.33 X 10*6/uL (4.40-5.60); RDW 13.2 % (11.5-14.5); WBC 3.37 X 10*3/uL (4.50-10.00)
[2022-03-25 23:01] LABS: African American GFR (CKD) 112.5 (60.0-200.0); Albumin 3.5 g/dL (3.8-4.9); Albumin/Globulin Ratio 1.59 (1.60-3.17); Anion Gap 10.9 mmol/L (10.00-18.00); Blood Urea Nitrogen 7.2 mg/dL (9.0-27.0); Calcium 8.6 mg/dL (8.7-10.3); Carbon Dioxide 23.1 mmol/L (20.0-27.5); Globulin 2.2 g/dL (1.6-3.3); Non-African American GFR(CKD) 97.1 (60.0-200.0); Potassium 4.3 mmol/L (3.5-5.5); Total Bilirubin 0.5 mg/dL (0.30-1.20); Total Protein 5.7 g/dL (6.2-8.2)
[2022-03-26] MEDS: diazePAM 5 MG TAB PO SCH ×3 (01:59→10:24)
[2022-03-26] MEDS: DEXTROSE 5%-0.45% NACL 1,000 ML IV SCH (03:59)
[2022-03-26] MEDS: METOPROLOL TARTRATE 25 MG TAB PO SCH (07:56)
[2022-03-26] MEDS: PANTOPRAZOLE 40 MG TABLET PO SCH (07:56)
[2022-03-26] MEDS: MAGNESIUM OXIDE 400 MG TAB PO SCH (07:57)
[2022-03-26] MEDS: MULTIVITAMINS, THERA 1 EACH TAB PO SCH (07:57)
[2022-03-26] MEDS: THIAMINE 100 MG TAB PO SCH (07:57)
[2022-03-26 12:08] VITALS: BP 121/83; PULSE 62; TEMP 98
--- NOTE | 2022-03-26 20:55 | DS ---
DISCHARGE SUMMARY CHIEF COMPLAINT: DTs. HISTORY OF PRESENT ILLNESS AND PHYSICAL EXAMINATION: Details of this man's history and physical can be found in the initial workup. LABORATORY STUDIES: While he was in the hospital he had laboratory studies, details of which can be found in the laboratory section of his chart. COURSE IN THE HOSPITAL: After admission he was placed on bedrest, started on intravenous fluids and CIWA protocol. He remained in DTs for several days. He was improving. It was noted that his white blood cell count was dropping, as were his platelets. His liver function studies also started to rise. He had no significant abdominal pain, nausea, vomiting, etc. These studies were repeated serially and started to improve on the morning of March 26. It was felt he could be discharged, and he will go home on his usual activity and diet. He will be taken off of rivaroxaban. He has been on that for over two years for DVT. Given his drinking history, anticoagulation is also more risky. FINAL DIAGNOSIS: 1. Delirium tremens. 2. Chronic alcoholism. 3. Pancytopenia. 4. Chronic obstructive pulmonary disease. OPERATIONS: None. CONSULTATIONS: None. He is improved. MMODL / IJN: [id number] /
--- NOTE | 2022-03-28 15:21 | CDI ---
Documentation Clarification Form Date: 03/28/2022 02:58:24 PM From: Abiola Childs Phone: Admit Date: 03/20/2022 10:27:00 PM Patient Name: Gurwinder Toribio Visit Number: [id number] Discharge Date: 03/26/2022 01:51:00 PM ATTENTION: The Clinical Documentation Specialists (CDI) and [facility] Coding Staff appreciate your assistance in clarifying documentation. Please respond to the clarification below the line at the bottom and electronically sign. The CDI & [facility] Coding staff will review the response and follow-up if needed. Please note: Queries are made part of the Legal Health Record. If you have any questions, please contact the author of this message via ITS. Dr. Hernan Gonzales Alcoholdependence is documented per ED and patient is noted to have Cirrhosis per [facility] Note 03/25/22 and fatty liver per Hx in the ED. Please clarify if there is a relationship between the Alcoholdependence and Cirrhosis and fatty liver History/Risk Factors: 61yo M, Acute alcohol intoxication, Delirium tremens d/t Chronicalcoholism W/D, Cirrhosis, Pancytopenia, Alcoholic hepatitis, pancreatitis, alcoholketoacidosis, depression and anxiety Clinical Indicators: BAL 272, Alcoholic hepatitis, pancreatitis, alcoholketoacidosis, ETOH intoxication then withdrawal Treatment: After admission he wasplacedon bedrest, started on intravenous fluids and CIWA protocol. He remained inDTsfor several days. He was improving. It was noted that his white blood cell count was dropping, as were his platelets. His liver function studiesalso started to rise; no significantabdominal pain,nausea, vomiting, etc. Thesestudieswere repeated serially and started to improve. Please clarify the relationship, if any, which is clinically appropriate for this patient: [ ] Cirrhosis is due to Alcohol dependence [ ] Cirrhosis is not due to Alcohol dependence [ ] Fatty Liver is due to Alcohol dependence [ ] Fatty Liver is not due to Alcohol dependence [ ] Other explanation of clinical findings (please specify) [ ] Unable to determine (no explanation for clinical findings) (Template Last Revised: November 2020) MTDD
--- NOTE | 2022-03-30 20:18 | MISC ---
MISCELLANOUS REPORT QUERY: Cirrhosis due to alcohol dependency. MMODL / IJN: [id number] /
== END 2022-03-26 13:51 | disposition home or self-care (01) | DRG 896 ==
LOC: EC 21:16 → 5NMEDONC 22:27
PROVIDERS: ADMIT Family Medicine; ATTEND Family Medicine
DX: F10.229 Alcohol dependence with intoxication, unspecified (principal); K85.20 Alcohol induced acute pancreatitis without necrosis or infection; E87.2 Acidosis; D61.818 Other pancytopenia; F10.231 Alcohol dependence with withdrawal delirium; K70.10 Alcoholic hepatitis without ascites; J44.9 Chronic obstructive pulmonary disease, unspecified; I73.9 Peripheral vascular disease, unspecified; F32.A Depression, unspecified; K74.60 Unspecified cirrhosis of liver; K76.0 Fatty (change of) liver, not elsewhere classified; E86.0 Dehydration; E66.3 Overweight; I48.91 Unspecified atrial fibrillation; M19.90 Unspecified osteoarthritis, unspecified site; G89.29 Other chronic pain; M54.50 Low back pain, unspecified; I87.2 Venous insufficiency (chronic) (peripheral); R01.1 Cardiac murmur, unspecified; G47.33 Obstructive sleep apnea (adult) (pediatric); Y90.8 Blood alcohol level of 240 mg/100 ml or more; F41.9 Anxiety disorder, unspecified; F17.210 Nicotine dependence, cigarettes, uncomplicated; Z68.30 Body mass index [BMI] 30.0-30.9, adult; Z79.01 Long term (current) use of anticoagulants; Z88.0 Allergy status to penicillin; Z86.718 Personal history of other venous thrombosis and embolism; Z86.711 Personal history of pulmonary embolism; Z79.899 Other long term (current) drug therapy; Z86.14 Personal history of Methicillin resistant Staphylococcus aureus infection; Z87.820 Personal history of traumatic brain injury; Z80.1 Family history of malignant neoplasm of trachea, bronchus and lung; Z82.49 Family history of ischemic heart disease and other diseases of the circulatory system; Z81.2 Family history of tobacco abuse and dependence
CPT/HCPCS: 36415; 80053; 80320; 83690; 83735; 84100; 85025; 85610; 96361; 96372; 96374; 99285

== ENCOUNTER 2022-03-28 15:11 | Inpatient (IN) | payer OTHER ==
[2022-03-28] MEDS ORDERED: SODIUM CHLORIDE 0.9% 1,000 ML IV STA ×3 (15:16→17:31)
--- NOTE | 2022-03-28 15:21 | ED ---
Weakness HPI - General Stated complaint: WEAKNESS Time Seen by Provider: 03/28/22 15:16 Source: patient, EMS, RN notes reviewed, old records reviewed Mode of arrival: EMS - History of Present Illness Initial comments: 7-year-old male with a history of recent admission for alcohol withdrawal alcoholism who was just discharged 2 days ago who was brought in today by EMS because of weakness he states he is unable weight-bear very well or ambulate. He states he fell yesterday and today striking his head as well as his knees. He states he has a chronic headache. And chronic edema to his lower extremit ies. He denies any neck back or extremity pain. He does admit to drinking a half pint of vodka yesterday. No fevers chills nausea vomiting sweats he states he has been able to eat when he was at home decreased fluid intake. He denies any tremors any hallucinations. He denies any focal weakness. MD Complaint: generalized weakness, difficulty walking - Related Data Home Medications Medication Instructions Recorded Confirmed Multivitamins, Thera [Multivitamin 1 tab PO DAILY 01/09/22 03/20/22 (formulary)] Albuterol Inhaler [Ventolin Hfa 2 puff INHALATION RT-TID PRN 02/26/22 03/20/22 Inhaler] Famotidine [Pepcid] 20 mg PO BID PRN 02/26/22 03/20/22 Previous Rx's Medication Instructions Recorded Metoprolol Tartrate [Lopressor] 25 mg PO BID #60 tab 11/07/21 Thiamine [Vitamin B-1] 100 mg PO BID-W/MEALS #60 tab 11/07/21 Acetaminophen Tab [Tylenol] 650 mg PO Q6HR PRN tab 01/12/22 Magnesium Oxide [Mag-Ox] 400 mg PO TID 30 Days #90 tab 01/12/22 Allergies Allergy/AdvReac Type Severity Reaction Status Date / Time Penicillins Allergy Mild Rash/Hives Verified 03/28/22 15:23 Review of Systems ROS Statement: Those systems with pertinent positive or pertinent negative responses have been documented in the HPI. ROS Other: All systems not noted in ROS Statement are negative. Past Medical History Past Medical History: Atrial Fibrillation, COPD, Deep Vein Thrombosis (DVT), GERD/Reflux, Liver Disease, Osteoarthritis (OA), Pulmonary Embolus (PE), Skin Disorder, Sleep Apnea/CPAP/BIPAP, Vascular Disorder Additional Past Medical History / Comment(s): Pt recently admitted to [facility] on 12/26/21 with alcohol intoxication/withdrawl and possible copd. Other hx: ETOH abuse, alcoholic hepatitis, hepatic steatosis, chronic encephalopathy, thrombocytopenia, 03/2020 fall with brain bleed-transferred from [facility] to [facility]-pt states he still has chronic headaches, chronic low back pain, PVD, chronic venous stasis dermatitis, past DVT R leg and PEs-laterallity unknown, SOB with exertion, LYRIC/no device, bilateral lower leg discolored/edematous. History of Any Multi-Drug Resistant Organisms: MRSA Date of last positivie culture/infection: 2006 MDRO Source:: unk Past Surgical History: Orthopedic Surgery Additional Past Surgical History / Comment(s): Left hand tendon surgery, EGD Past Anesthesia/Blood Transfusion Reactions: No Reported Reaction Past Psychological History: Anxiety, Depression Additional Psychological History / Comment(s): Pt currently resides alone. He drives. Smoking Status: Current every day smoker Past Alcohol Use History: Abuse, Daily, Heavy Additional Past Alcohol Use History / Comment(s): Pt started smoking in 1985 and is a half ppd smoker. Pt states he drinks about two one fifths of liqour a day Past Drug Use History: None Reported - Past Family History Mother Family Medical History: AFIB Additional Family Medical History / Comment(s): Mother is 81 yrs old. Father Family Medical History: Cancer Additional Family Medical History / Comment(s): Pt believes his father passed from lung cancer. He was a smoker. General Exam - General Exam Comments Initial Comments: This a well-developed well-nourished awake alert oriented 4 male he does demonstrate the smell of alcohol conjoiners on his breath General appearance: alert Head exam: Present: atraumatic, normocephalic, normal inspection Eye exam: Present: normal appearance, PERRL, EOMI. Absent: scleral icterus, conjunctival injection, periorbital swelling ENT exam: Present: mucous membranes dry Neck exam: Present: normal inspection, full ROM, other (No stridor JVD or bruits). Absent: tenderness, meningismus, lymphadenopathy Respiratory exam: Present: normal lung sounds bilaterally. Absent: respiratory distress, wheezes, rales, rhonchi, stridor Cardiovascular Exam: Present: regular rate, normal rhythm, normal heart sounds. Absent: systolic murmur, diastolic murmur, rubs, gallop, clicks GI/Abdominal exam: Present: soft, normal bowel sounds. Absent: distended, tenderness, guarding, rebound, rigid Extremities exam: Present: full ROM, normal capillary refill, pedal edema, other (Stasis dermatitis demonstrate on both sides no palpable cords tenderness). Absent: tenderness, joint swelling, calf tenderness Back exam: Present: normal inspection, full ROM Neurological exam: Present: alert, oriented X3, CN II-XII intact Psychiatric exam: Present: normal affect, normal mood Skin exam: Present: warm, dry, intact, normal color. Absent: rash Course Vital Signs 03/28/22 15:13 Temperature 97.5 F L Pulse Rate 84 Respiratory 18 Rate Blood Pressure 110/82 O2 Sat by Pulse 97 Oximetry Medical Decision Making - Medical Decision Making Patient does demonstrate evidence of alcohol intoxication lactic acid likely secondary to I'm depletion has no infectious processes identified. Patient will be admitted for inpatient evaluation and treatment of the same. Case discussed with Rubi who is covering for Dr. Dubose. [facility] is covering for Dr. Dasilva. - Lab Data Result diagrams: 03/28/22 15:55 03/28/22 15:55 Lab Results 03/28/22 03/28/22 03/28/22 Range/Units 15:55 15:55 15:55 WBC 3.5 L (3.8-10.6) k/uL RBC 4.38 (4.30-5.90) m/uL Hgb 13.7 (13.0-17.5) gm/dL Hct 44.0 (39.0-53.0) % MCV 100.5 H (80.0-100.0) fL MCH 31.4 (25.0-35.0) pg MCHC 31.2 (31.0-37.0) g/dL RDW 13.8 (11.5-15.5) % Plt Count 191 D (150-450) k/uL MPV 7.7 Neutrophils % 40 % Lymphocytes % 38 % Monocytes % 17 % Eosinophils % 2 % Basophils % 1 % Neutrophils # 1.4 (1.3-7.7) k/uL Lymphocytes # 1.3 (1.0-4.8) k/uL Monocytes # 0.6 (0-1.0) k/uL Eosinophils # 0.1 (0-0.7) k/uL Basophils # 0.0 (0-0.2) k/uL Macrocytosis Slight PT 10.0 (9.0-12.0) sec INR 0.9 (<1.2) APTT 21.9 L (22.0-30.0) sec Sodium 144 (137-145) mmol/L Potassium 4.4 (3.5-5.1) mmol/L Chloride 105 (98-107) mmol/L Carbon Dioxide 30 (22-30) mmol/L Anion Gap 9 mmol/L BUN 9 (9-20) mg/dL Creatinine 0.74 (0.66-1.25) mg/dL Est GFR (CKD-EPI)AfAm >90 (>60 ml/min/1.73 sqM) Est GFR (CKD-EPI)NonAf >90 (>60 ml/min/1.73 sqM) Glucose 84 (74-99) mg/dL Plasma Lactic Acid Azam (0.7-2.0) mmol/L Calcium 8.8 (8.4-10.2) mg/dL Magnesium 1.6 (1.6-2.3) mg/dL Total Bilirubin 0.3 (0.2-1.3) mg/dL AST 83 H (17-59) U/L ALT 113 H (4-49) U/L Alkaline Phosphatase 71 (38-126) U/L Ammonia (<30) umol/L Creatine Kinase 395 H (55-170) U/L Troponin I (0.000-0.034) ng/mL Total Protein 6.7 (6.3-8.2) g/dL Albumin 3.9 (3.5-5.0) g/dL Lipase 138 (23-300) U/L Serum Alcohol 268 H* mg/dL 03/28/22 03/28/22 Range/Units 15:55 15:55 WBC (3.8-10.6) k/uL RBC (4.30-5.90) m/uL Hgb (13.0-17.5) gm/dL Hct (39.0-53.0) % MCV (80.0-100.0) fL MCH (25.0-35.0) pg MCHC (31.0-37.0) g/dL RDW (11.5-15.5) % Plt Count (150-450) k/uL MPV Neutrophils % % Lymphocytes % % Monocytes % % Eosinophils % % Basophils % % Neutrophils # (1.3-7.7) k/uL Lymphocytes # (1.0-4.8) k/uL Monocytes # (0-1.0) k/uL Eosinophils # (0-0.7) k/uL Basophils # (0-0.2) k/uL Macrocytosis PT (9.0-12.0) sec INR (<1.2) APTT (22.0-30.0) sec Sodium (137-145) mmol/L Potassium (3.5-5.1) mmol/L Chloride (98-107) mmol/L Carbon Dioxide (22-30) mmol/L Anion Gap mmol/L BUN (9-20) mg/dL Creatinine (0.66-1.25) mg/dL Est GFR (CKD-EPI)AfAm (>60 ml/min/1.73 sqM) Est GFR (CKD-EPI)NonAf (>60 ml/min/1.73 sqM) Glucose (74-99) mg/dL Plasma Lactic Acid Azam 2.3 H* (0.7-2.0) mmol/L Calcium (8.4-10.2) mg/dL Magnesium (1.6-2.3) mg/dL Total Bilirubin (0.2-1.3) mg/dL AST (17-59) U/L ALT (4-49) U/L Alkaline Phosphatase (38-126) U/L Ammonia <9 (<30) umol/L Creatine Kinase (55-170) U/L Troponin I <0.012 (0.000-0.034) ng/mL Total Protein (6.3-8.2) g/dL Albumin (3.5-5.0) g/dL Lipase (23-300) U/L Serum Alcohol mg/dL - EKG Data -: EKG Interpreted by Me EKG shows normal: sinus rhythm EKG Comments: Sinus rhythm a 79 GA interval 168 QRS duration 82 QT/QTC 358/[address]-T wave changes - Radiology Data Radiology results: report reviewed (Imaging reviewed as well as reports no acute findings.), image reviewed Disposition Clinical Impression: Alcohol intoxication, Dehydration, Weakness, Lactic acidosis Disposition: ADMITTED IP TO THIS HOSP Condition: Fair Referrals: Hernan Gonzales MD [Primary Care Provider] - 1-2 days Decision Date: 03/28/22 Decision Time: 17:34
[2022-03-28 15:59] LABS: Basophils % (A) 1 %; Eosinophils # (A) 0.1 k/uL (0-0.7); Eosinophils % (A) 2 %; HGB 13.7 gm/dL (13.0-17.5); Lymphocytes # (A) 1.3 k/uL (1.0-4.8); Lymphocytes % (A) 38 %; MCH 31.4 pg (25.0-35.0); MCHC 31.2 g/dL (31.0-37.0); MCV 100.5 fL (80.0-100.0); Macrocytosis Slight; Mean Platelet Volume 7.7; Monocytes # (A) 0.6 k/uL (0-1.0); Monocytes % (A) 17 %; Neutrophils # (A) 1.4 k/uL (1.3-7.7); Neutrophils % (A) 40 %; RBC 4.38 m/uL (4.30-5.90); RDW 13.8 % (11.5-15.5); WBC 3.5 k/uL (3.8-10.6)
[2022-03-28 16:04] LABS: Platelet Count 191 k/uL (150-450)
[2022-03-28 16:10] LABS: ALT 113 U/L (4-49); AST 83 U/L (17-59); African American GFR (CKD) >90 (>60 ml/min/1.73 sqM); Albumin 3.9 g/dL (3.5-5.0); Alkaline Phosphatase 71 U/L (38-126); Anion Gap 9 mmol/L; Blood Urea Nitrogen 9 mg/dL (9-20); Calcium 8.8 mg/dL (8.4-10.2); Carbon Dioxide 30 mmol/L (22-30); Chloride 105 mmol/L (98-107); Creatine Kinase 395 U/L (55-170); Glucose 84 mg/dL (74-99); Lipase 138 U/L (23-300); Magnesium 1.6 mg/dL (1.6-2.3); Non-African American GFR(CKD) >90 (>60 ml/min/1.73 sqM); Potassium 4.4 mmol/L (3.5-5.1); Sodium 144 mmol/L (137-145); Total Bilirubin 0.3 mg/dL (0.2-1.3); Total Protein 6.7 g/dL (6.3-8.2)
[2022-03-28 16:13] LABS: Lactic Acid, Venous 2.3 mmol/L (0.7-2.0)
[2022-03-28 16:14] LABS: Alcohol 268 mg/dL; INR 0.9 (<1.2); Partial Thromboplastin Time 21.9 sec (22.0-30.0)
--- NOTE | 2022-03-28 17:23 | CT ---
EXAMINATION TYPE: CT brain wo con DATE OF EXAM: 03/28/2022 COMPARISON: 01/19/2022 HISTORY: Weakness, increased difficulty ambulating, falls. CT DLP: 1231.4 mGycm Automated exposure control for dose reduction was used. Images of the brain obtained with no contrast. Ventricles and sulci appear normal. There is no mass effect nor midline shift. No sign of intracrania l hemorrhage. No evidence of cerebral edema. Calvarium is intact. Sella turcica appears normal. Skull base is intact. IMPRESSION: Negative unenhanced head CT scan. No change.
--- NOTE | 2022-03-28 17:23 | XR ---
EXAMINATION TYPE: XR chest 2V DATE OF EXAM: 03/28/2022 COMPARISON: 03/04/2022 HISTORY: Short of breath TECHNIQUE: FINDINGS: There is no heart failure nor confluent pneumonic infiltrate. Costophrenic angles are clear . There are no hilar masses. Bony thorax is intact. IMPRESSION: No active cardiopulmonary disease. No change.
[2022-03-28] MEDS ORDERED: NALOXONE 0.4 MG/ML 1 ML VIAL IV PRN (17:34)
[2022-03-28] MEDS ORDERED: THIAMINE 100 MG/ML 2 ML VIAL IM STA (17:38)
[2022-03-28] MEDS ORDERED: LORazepam 2 MG/ML INJ IV PRN ×3 (17:38)
[2022-03-28] MEDS: THIAMINE 100 MG TAB PO SCH (23:13)
[2022-03-29] MEDS ORDERED: LORazepam 1 MG/0.5 ML VIAL IV PRN ×3 (03:05→06:23)
[2022-03-29] MEDS: THIAMINE 100 MG TAB PO SCH ×2 (08:23→17:58)
[2022-03-29] MEDS ORDERED: ALBUTEROL NEBULIZED 2.5 MG/3 ML INHALATION PRN (17:46)
[2022-03-29] MEDS ORDERED: FAMOTIDINE 20 MG TAB PO PRN (17:46)
[2022-03-29] MEDS: chlordiazePOXIDE 25 MG CAP PO SCH ×2 (17:58→22:32)
[2022-03-29] MEDS: METOPROLOL TARTRATE 25 MG TAB PO SCH (20:56)
[2022-03-29] MEDS: MAGNESIUM OXIDE 400 MG TAB PO SCH (20:56)
--- NOTE | 2022-03-30 01:35 | P.HPIM ---
History of Present Illness H&P Date: 03/29/22 Chief Complaint: Falls Patient is a 61-year-old male with a known history of DVT/PE, was on Xarelto, paroxysmal atrial fibrillation recently diagnosed in October 2021, COPD, severe alcohol abuse, history of fall and brain bleed in March 2020 and was transferred to [facility], chronic low back pain, peripheral vascular disease, obstructive sleep apnea not on CPAP at home and alcoholic hepatitis history and currently ongoing correction presents to ER with complaints of generalized weakness and falls and unable to bear weight on his legs and difficulty ambula tion. Patient states that he fell at home yesterday and did hit his head and also landed on his knees. Denied any neck pain. No blurred vision. Denied any focal weakness. Patient has been drinking vodka yesterday. No nausea vomiting no fever no chills. No neck stiffness. No cough or sputum production. CT head showed negative unenhanced head CT scan. No change. Chest x-ray showed no acute cardiopulmonary disease. EKG showed normal sinus rhythm Laboratory data showed WBC 3.4 hemoglobin 13.7 and MCV 100.5 and platelets 491 Lactic acid 2.3 Sodium 144 potassium 4.4 chloride 105 bicarb is 30 BUN 9 and creatinine 0.74 AST 83 ALT 113 alk phos 91 and CPK 395 and troponin x1 negative serum alcohol level is 268 Review of Systems Constitutional: Patient denies any fever or chills . Generalized weakness. Abdomen: Patient denied any nausea or vomiting or abd. pain Cardiovascular: Patient denies any chest pain or short of breath no palpitations. Respiratory: patient denied any cough is from production. No shortness of breath Neurologic: Patient denied any numbness or tingling headache. Musculoskeletal: Patient denies any complaints of joint swelling or deformity. Skin: Negative Psychiatric: Negative Endocrine: No heat or cold intolerance. No recent weight gain. Genitourinary: No dysuria or hematuria. All other 14 point ROS negative except the above Past Medical History Past Medical History: Atrial Fibrillation, COPD, Deep Vein Thrombosis (DVT), GERD/Reflux, Liver Disease, Osteoarthritis (OA), Pulmonary Embolus (PE), Skin Disorder, Sleep Apnea/CPAP/BIPAP, Vascular Disorder Additional Past Medical History / Comment(s): Pt recently admitted to [facility] on 12/26/21 with alcohol intoxication/withdrawl and possible copd. Other hx: ETOH abuse, alcoholic hepatitis, hepatic steatosis, chronic encephalopathy, thrombocytopenia, 03/2020 fall with brain bleed-transferred from [facility] to [facility]-pt states he still has chronic headaches, chronic low back pain, PVD, chronic venous stasis dermatitis, past DVT R leg and PEs-laterallity unknown, SOB with exertion, LYRIC/no device, bilateral lower leg discolored/edematous. History of Any Multi-Drug Resistant Organisms: MRSA Date of last positivie culture/infection: 2006 MDRO Source:: unk Past Surgical History: Orthopedic Surgery Additional Past Surgical History / Comment(s): Left hand tendon surgery, EGD Past Anesthesia/Blood Transfusion Reactions: No Reported Reaction Past Psychological History: Anxiety, Depression Additional Psychological History / Comment(s): Pt currently resides alone. He drives. Smoking Status: Current every day smoker Past Alcohol Use History: Abuse, Daily, Heavy Additional Past Alcohol Use History / Comment(s): Pt started smoking in 1985 and is a half ppd smoker. Pt states he drinks about two one fifths of liqour a day Past Drug Use History: None Reported - Past Family History Mother Family Medical History: AFIB Additional Family Medical History / Comment(s): Mother is 81 yrs old. Father Family Medical History: Cancer Additional Family Medical History / Comment(s): Pt believes his father passed from lung cancer. He was a smoker. Medications and Allergies Home Medications Medication Instructions Recorded Confirmed Type Metoprolol Tartrate [Lopressor] 25 mg PO BID #60 tab 11/07/21 03/28/22 Rx Thiamine [Vitamin B-1] 100 mg PO BID-W/MEALS #60 tab 11/07/21 03/28/22 Rx Multivitamins, Thera [Multivitamin 1 tab PO DAILY 01/09/22 03/28/22 History (formulary)] Acetaminophen Tab [Tylenol] 650 mg PO Q6HR PRN tab 01/12/22 03/28/22 Rx Magnesium Oxide [Mag-Ox] 400 mg PO TID 30 Days #90 tab 01/12/22 03/28/22 Rx Albuterol Inhaler [Ventolin Hfa 2 puff INHALATION RT-TID PRN 02/26/22 03/28/22 History Inhaler] Famotidine [Pepcid] 20 mg PO BID PRN 02/26/22 03/28/22 History Allergies Allergy/AdvReac Type Severity Reaction Status Date / Time Penicillins Allergy Mild Rash/Hives Verified 03/28/22 17:57 Physical Exam Vitals: Vital Signs Temp Pulse Pulse Resp BP BP Pulse Ox 03/29/22 05:00 98.0 F 79 16 126/82 94 L 03/28/22 18:12 80 16 112/80 97 03/28/22 15:13 97.5 F L 84 18 110/82 97 Intake and Output 03/28/22 03/29/22 03/29/22 22:59 06:59 14:59 Intake Total 590 Output Total 900 Balance -310 Intake: Oral 590 Output: Urine 900 Other: Voiding Method Toilet Urinal # Voids 1 Weight 111.13 kg PHYSICAL EXAMINATION: Patient is lying in the bed comfortably, no acute distress, awake alert and oriented.. HEENT: Normocephalic. Neck is supple. Pupils reactive. Nostrils clear. Oral cavity is moist. Neck reveals no JVD, carotid bruits, or thyromegaly. CHEST EXAMINATION: Trachea is central. Symmetrical expansion. Lung hernandez clear to auscultation and percussion. CARDIAC: Normal S1, S2 with no gallops. No murmurs ABDOMEN: Soft. Bowel sounds present. Nontender. No organomegaly. No abdominal bruits. Extremities: reveal no edema. No clubbing or cyanosis Neurologically awake, alert, oriented x3 with well-coordinated movements. No focal deficits noted Skin: No rash or skin lesions. Psychiatric: Coperative. Nonsuicidal, anxious. Musculoskeletal: No joint swelling or deformity. Normal range of motion. Results CBC & Chem 7: 03/28/22 15:55 03/28/22 15:55 Labs: Abnormal Lab Results - Last 24 Hours (Table) 03/28/22 03/28/22 03/28/22 Range/Units 15:55 15:55 15:55 WBC 3.5 L (3.8-10.6) k/uL MCV 100.5 H (80.0-100.0) fL APTT 21.9 L (22.0-30.0) sec Plasma Lactic Acid Azam (0.7-2.0) mmol/L AST 83 H (17-59) U/L ALT 113 H (4-49) U/L Creatine Kinase 395 H (55-170) U/L Serum Alcohol 268 H* mg/dL 03/28/22 Range/Units 15:55 WBC (3.8-10.6) k/uL MCV (80.0-100.0) fL APTT (22.0-30.0) sec Plasma Lactic Acid Azam 2.3 H* (0.7-2.0) mmol/L AST (17-59) U/L ALT (4-49) U/L Creatine Kinase (55-170) U/L Serum Alcohol mg/dL Thrombosis Risk Factor Assmnt - DVT/VTE Prophylaxis DVT/VTE Prophylaxis: Pharmacologic Prophylaxis ordered - Choose All That Apply Each Factor Represents 1 point: Abnormal pulmonary function (COPD), Age 41-60 years, Obesity (BMI >25) Thrombosis Risk Factor Assessment Total Risk Factor Score: 3 Thrombosis Risk Factor Assessment Level: Moderate Risk Assessment and Plan Assessment: Acute alcohol intoxication on admission Generalized weakness and unable to weight-bear on his legs and frequent falls at home. Mild rhabdomyolysis Lactic acidosis 2.3 on admission Acute alcoholic hepatitis Paroxysmal atrial fibrillation diagnosed in October 2021. Sinus rhythm currently. Not on anticoagulation due to frequent falls. History of DVT/PE and was on Xarelto. Was discontinued recently. GERD Obstructive sleep apnea on nocturnal CPAP COPD Ongoing connection Anxiety/depression Heavy alcohol abuse chronic low back pain DVT prophylaxis with heparin subcu Plan: Patient will be continued on IV hydration and monitor for alcohol withdrawal symptoms. Replace electrolytes and. PT OT will be consulted. Continue with home medications including metoprolol. Encourage oral intake and pain management. Currently maintaining sinus rhythm. Follow-up closely. Time with Patient: Greater than 30
[2022-03-30] MEDS: METOPROLOL TARTRATE 25 MG TAB PO SCH ×2 (08:10→21:32)
[2022-03-30] MEDS: THIAMINE 100 MG TAB PO SCH ×2 (08:10→16:32)
[2022-03-30] MEDS: MAGNESIUM OXIDE 400 MG TAB PO SCH ×3 (08:10→21:32)
[2022-03-30] MEDS: chlordiazePOXIDE 25 MG CAP PO SCH ×3 (08:10→21:32)
[2022-03-30] MEDS: HEPARIN SODIUM,PORCINE/PF 5,000 UNIT/0.5 ML SYRINGE SQ SCH ×3 (08:11→23:57)
[2022-03-30] MEDS: MULTIVITAMINS, THERA 1 EACH TAB PO SCH (08:11)
[2022-03-30 11:06] LABS: HCT 42.4 % (39.6-50.0); HGB 13.5 g/dL (13.0-17.0); MCH 31.3 pg (27.0-32.0); MCHC 31.8 g/dL (32.0-37.0); MCV 98.1 fL (80.0-97.0); Mean Platelet Volume 10.8 fL (9.5-12.2); NRBC Per 100 WBC 0 /100 WBCS (0.0-0.0); Platelet Count 191 X 10*3/uL (140-440); RBC 4.32 X 10*6/uL (4.40-5.60); RDW 13.8 % (11.5-14.5); WBC 3.07 X 10*3/uL (4.50-10.00)
[2022-03-30 12:33] LABS: Basophils # (M) 0.03 X 10*3/uL (0.00-0.10); Eosinophils # (M) 0.06 X 10*3/uL (0.04-0.35); Lymphocytes # (M) 1.04 X 10*3/uL (0.90-5.00); Monocytes # (M) 0.55 X 10*3/uL (0.20-1.00); Neutrophils # (M) 1.38 X 10*3/uL (2.00-8.90); Neutrophils % (M) 45 %; RBC Morphology NORMAL
[2022-03-30 13:23] LABS: African American GFR (CKD) 112.7 (60.0-200.0); Albumin 3.8 g/dL (3.8-4.9); Albumin/Globulin Ratio 1.62 (1.60-3.17); Anion Gap 16.3 mmol/L (10.00-18.00); BUN/Creat Ratio 11.47 Ratio (12.00-20.00); Blood Urea Nitrogen 9.1 mg/dL (9.0-27.0); Carbon Dioxide 19.3 mmol/L (20.0-27.5); Globulin 2.3 g/dL (1.6-3.3); Non-African American GFR(CKD) 97.3 (60.0-200.0); Potassium 4.8 mmol/L (3.5-5.5); Total Bilirubin 0.8 mg/dL (0.30-1.20); Total Protein 6.1 g/dL (6.2-8.2)
--- NOTE | 2022-03-30 19:18 | HP ---
HISTORY AND PHYSICAL DATE OF ADMISSION: 03/28/2022 CHIEF COMPLAINT: Acute alcohol intoxication. HISTORY OF PRESENT ILLNESS: This is another admission for this 61-year-old white male, a chronic alcoholic. He just left the hospital two days ago. While he was in the hospital he was treated for DTs and pancytopenia as well as COPD. He went out and started drinking again and came in intoxicated. REVIEW OF SYSTEMS: Review of systems is not obtained. Past medical history, family history, and personal and social histories are unchanged. PHYSICAL EXAMINATION: Blood pressure is 142/90 with a pulse of 88, respirations of 40. He is afebrile. In general he appeared to be overweight and he was intoxicated. Head, ears, eyes, nose, mouth and throat were normal. Chest was clear. Cardiac exam demonstrated sinus tachycardia. The abdomen was protuberant, soft and nontender. Extremities were normal. Neurologically, other than being intoxicated, he was intact. He is admitted to the hospital with the diagnoses: 1. Acute alcohol intoxication. 2. Chronic alcoholism. 3. Chronic obstructive pulmonary disease. 4. History of deep vein thrombosis. 5. Pancytopenia. PLAN: 1. Bedrest. 2. IV fluids. 3. CIWA protocol. MMODL / ILENEN: [id number] /
--- NOTE | 2022-03-30 19:28 | PN ---
PROGRESS NOTE DATE OF SERVICE: 03/30/2022 CHIEF COMPLAINT: Acute alcohol intoxication and DTs. HISTORY OF PRESENT ILLNESS: This gentleman is having some trouble with tremulousness once again. He denies diplopia or confusion. PHYSICAL EXAMINATION: Chest is clear. Cardiac exam is normal. The abdomen is soft and nontender. IMPRESSION: 1. Acute alcohol intoxication. 2. Chronic alcoholism. 3. Delirium tremens. 4. Pancytopenia. PLAN: Continue with [facility] protocol. HARPER / MARITZA: [id number] /
[2022-03-31] MEDS: chlordiazePOXIDE 25 MG CAP PO SCH (07:58)
[2022-03-31] MEDS: MULTIVITAMINS, THERA 1 EACH TAB PO SCH (07:58)
[2022-03-31] MEDS: THIAMINE 100 MG TAB PO SCH (07:58)
[2022-03-31] MEDS: METOPROLOL TARTRATE 25 MG TAB PO SCH (07:58)
[2022-03-31] MEDS: MAGNESIUM OXIDE 400 MG TAB PO SCH (07:58)
[2022-03-31] MEDS: HEPARIN SODIUM,PORCINE/PF 5,000 UNIT/0.5 ML SYRINGE SQ SCH (07:58)
[2022-03-31 11:27] VITALS: BP 147/91; PULSE 71; RESP 18; TEMP 97.7
[2022-03-31] MEDS ORDERED: ACAMPROSATE CALCIUM 333 MG TABLET.DR PO SCH (16:00)
[2022-03-31] MEDS ORDERED: THIAMINE 100 MG TAB PO SCH (17:30)
--- NOTE | 2022-03-31 18:40 | DS ---
DISCHARGE SUMMARY CHIEF COMPLAINT: Acute alcohol intoxication. HISTORY OF PRESENT ILLNESS AND PHYSICAL EXAMINATION: Details of this man's history and physical can be found in the initial workup. LABORATORY STUDIES: While he was in the hospital, he had laboratory studies, details of which can be found in the laboratory section of his chart. COURSE IN THE HOSPITAL: After admission he was placed on bedrest, started on intravenous fluids and started back on CIWA protocol. He improved and his bone marrow had fully recovered. It was felt that he could go to go back home on March 31 on his usual activity, diet and medications. He will not be on anticoagulants. FINAL DIAGNOSIS: 1. Acute alcohol intoxication. 2. Chronic alcoholism. 3. History of pancytopenia secondary to alcohol. OPERATIONS: None. CONSULTATIONS: None. He is improved. HARPER / MARITZA: [id number] /
--- NOTE | 2022-04-03 09:10 | DS ---
DISCHARGE SUMMARY DATE OF DISCHARGE: 03/31/2022 CHIEF COMPLAINT: Frequent falling, acute alcohol intoxication and chronic alcoholism. HISTORY OF PRESENT ILLNESS AND PHYSICAL EXAMINATION: Details of this man's history and physical can be found in the initial workup. LABORATORY STUDIES: While he was in the hospital, he had laboratory studies, details of which can be found in the laboratory section of his chart. COURSE IN THE HOSPITAL: After admission he was placed on bedrest and started on intravenous fluids and CIWA protocol. He did well. Bone marrow had recovered since his last admission. He is up and about and ambulating and it was felt that he would go home. He will go home on his usual activity, diet and medications and he will be followed up in several days. FINAL DIAGNOSIS: 1. Frequent falling. 2. Delirium tremens. 3. Acute alcohol intoxication. 4. Chronic alcoholism. 5. Pancytopenia. OPERATIONS: None. CONSULTATIONS: None. He is improved. MMCHRIS / ILENEN: [id number] /
== END 2022-03-31 12:30 | disposition home or self-care (01) | DRG 897 ==
LOC: EC 15:11 → 5NMEDONC 17:35
PROVIDERS: ADMIT Family Medicine; ATTEND Family Medicine
DX: F10.229 Alcohol dependence with intoxication, unspecified (principal); E87.2 Acidosis; M62.82 Rhabdomyolysis; F10.231 Alcohol dependence with withdrawal delirium; F17.210 Nicotine dependence, cigarettes, uncomplicated; E86.0 Dehydration; F32.A Depression, unspecified; F41.9 Anxiety disorder, unspecified; G47.33 Obstructive sleep apnea (adult) (pediatric); G89.29 Other chronic pain; I48.0 Paroxysmal atrial fibrillation; I73.9 Peripheral vascular disease, unspecified; J44.9 Chronic obstructive pulmonary disease, unspecified; K21.9 Gastro-esophageal reflux disease without esophagitis; K76.0 Fatty (change of) liver, not elsewhere classified; R29.6 Repeated falls; E66.9 Obesity, unspecified; M54.50 Low back pain, unspecified; Z68.30 Body mass index [BMI] 30.0-30.9, adult; Z91.81 History of falling; Z86.718 Personal history of other venous thrombosis and embolism; Z87.820 Personal history of traumatic brain injury; Z86.14 Personal history of Methicillin resistant Staphylococcus aureus infection; Z86.2 Personal history of diseases of the blood and blood-forming organs and certain disorders involving the immune mechanism; Z79.899 Other long term (current) drug therapy; Z86.711 Personal history of pulmonary embolism; Z28.21 Immunization not carried out because of patient refusal; Z88.0 Allergy status to penicillin; Z60.2 Problems related to living alone
CPT/HCPCS: 36415; 70450; 71046; 80053; 80320; 82140; 82550; 83605; 83690; 83735; 84484; 85025; 85610; 85730; 93005; 96360; 96361; 99285

== ENCOUNTER 2022-04-07 04:52 | Inpatient (IN) | payer OTHER ==
[2022-04-07 05:14] LABS: Basophils # (A) 0.1 k/uL (0-0.2); Basophils % (A) 1 %; Eosinophils % (A) 1 %; HCT 41.1 % (39.0-53.0); HGB 13.1 gm/dL (13.0-17.5); Lymphocytes % (A) 16 %; MCH 31.7 pg (25.0-35.0); MCHC 31.9 g/dL (31.0-37.0); MCV 99.2 fL (80.0-100.0); Mean Platelet Volume 7.2; Monocytes # (A) 0.4 k/uL (0-1.0); Monocytes % (A) 6 %; Neutrophils # (A) 4.4 k/uL (1.3-7.7); Neutrophils % (A) 75 %; Platelet Count 211 k/uL (150-450); RBC 4.14 m/uL (4.30-5.90)
[2022-04-07 05:18] LABS: ALT 52 U/L (4-49); AST 61 U/L (17-59); African American GFR (CKD) >90 (>60 ml/min/1.73 sqM); Albumin 4.1 g/dL (3.5-5.0); Alkaline Phosphatase 85 U/L (38-126); Anion Gap 12 mmol/L; Blood Urea Nitrogen 12 mg/dL (9-20); Calcium 8.6 mg/dL (8.4-10.2); Carbon Dioxide 25 mmol/L (22-30); Chloride 98 mmol/L (98-107); Glucose 141 mg/dL (74-99); Non-African American GFR(CKD) >90 (>60 ml/min/1.73 sqM); Potassium 3.8 mmol/L (3.5-5.1); Sodium 135 mmol/L (137-145); Total Bilirubin 0.4 mg/dL (0.2-1.3); Total Protein 6.8 g/dL (6.3-8.2)
[2022-04-07 05:24] LABS: INR 0.9 (<1.2); Partial Thromboplastin Time 23.6 sec (22.0-30.0)
[2022-04-07] MEDS ORDERED: diazePAM 5 MG/ML 1 ML VIAL IVP STA ×2 (05:36→06:20)
[2022-04-07] MEDS ORDERED: LORazepam 2 MG/ML INJ IV PRN ×2 (05:54)
[2022-04-07] MEDS ORDERED: THIAMINE 100 MG/ML 2 ML VIAL IM STA (05:54)
--- NOTE | 2022-04-07 05:54 | XR ---
EXAMINATION TYPE: XR chest 2V DATE OF EXAM: 04/07/2022 COMPARISON: 03/28/2022 HISTORY: Short of breath TECHNIQUE: FINDINGS: There is no heart failure nor confluent pneumonic infiltrate. Costophrenic angles are clear . There are chest leads. Bony thorax is intact. IMPRESSION: No active cardiopulmonary disease. No change.
[2022-04-07] MEDS ORDERED: SODIUM CHLORIDE 0.9% 1,000 ML IV STA (05:55)
--- NOTE | 2022-04-07 05:55 | ED ---
Alcohol HPI - General Chief Complaint: Shortness of Breath Stated Complaint: SOB Time Seen by Provider: 04/07/22 05:54 Source: EMS, RN notes reviewed, old records reviewed Mode of arrival: EMS Limitations: no limitations - History of Present Illness Initial Comments: This is a 61-year-old male well-known to our facility. Patient comes in today for not feeling well weakness admits to drinking alcohol. Positive nausea no vomiting no travel history no sick contacts no fevers. No cough or congestion chest pain or shortness of breath. She does state that he has been feeling maybe a little shortness of breath for a few days but no chest pain and no shortness breath with activity MD Complaint: alcohol intoxication, alcohol dependence Last Drink: just [employer] -: minute(s) Previous Visits for Alcohol Intoxication?: Yes Recent Trauma: Yes Associated Symptoms: nausea Treatments Prior to Arrival: none Chronic Alcohol Use: Yes - Related Data Home Medications Medication Instructions Recorded Confirmed Multivitamins, Thera [Multivitamin 1 tab PO DAILY 01/09/22 04/07/22 (formulary)] Albuterol Inhaler [Ventolin Hfa 2 puff INHALATION RT-TID PRN 02/26/22 04/07/22 Inhaler] Famotidine [Pepcid] 20 mg PO BID PRN 02/26/22 04/07/22 Budesonide-Formot 160-4.5 Mcg 2 puff INHALATION RT-BID 04/07/22 04/07/22 [Symbicort 160-4.5 Mcg Inhaler] Previous Rx's Medication Instructions Recorded Thiamine [Vitamin B-1] 100 mg PO BID-W/MEALS #60 tab 11/07/21 Acetaminophen Tab [Tylenol] 650 mg PO Q6HR PRN tab 01/12/22 Magnesium Oxide [Mag-Ox] 400 mg PO TID 30 Days #90 tab 01/12/22 Acamprosate Calcium [Campral] 666 mg PO TID #30 tab 03/31/22 Apixaban [Eliquis] 5 mg PO BID #60 tab 04/11/22 Metoprolol Succinate (ER) [Toprol 100 mg PO DAILY #30 tab 04/11/22 XL] Allergies Allergy/AdvReac Type Severity Reaction Status Date / Time Penicillins Allergy Mild Rash/Hives Verified 04/07/22 06:53 Review of Systems ROS Statement: Those systems with pertinent positive or pertinent negative responses have been documented in the HPI. ROS Other: All systems not noted in ROS Statement are negative. Past Medical History Past Medical History: Atrial Fibrillation, COPD, Deep Vein Thrombosis (DVT), GERD/Reflux, Liver Disease, Osteoarthritis (OA), Pulmonary Embolus (PE), Skin Disorder, Sleep Apnea/CPAP/BIPAP, Vascular Disorder Additional Past Medical History / Comment(s): Pt recently admitted to [facility] on 12/26/21 with alcohol intoxication/withdrawl and possible copd. Other hx: ETOH abuse, alcoholic hepatitis, hepatic steatosis, chronic encephalopathy, thrombocytopenia, 03/2020 fall with brain bleed-transferred from [facility] to [facility]-pt states he still has chronic headaches, chronic low back pain, PVD, chronic venous stasis dermatitis, past DVT R leg and PEs-laterallity unknown, SOB with exertion, LYRIC/no device, bilateral lower leg discolored/edematous. History of Any Multi-Drug Resistant Organisms: MRSA Date of last positivie culture/infection: 2006 MDRO Source:: unk Past Surgical History: Orthopedic Surgery Additional Past Surgical History / Comment(s): Left hand tendon surgery, EGD Past Anesthesia/Blood Transfusion Reactions: No Reported Reaction Past Psychological History: Anxiety, Depression Smoking Status: Current every day smoker Past Alcohol Use History: Abuse, Daily, Heavy Past Drug Use History: None Reported - Past Family History Mother Family Medical History: AFIB Additional Family Medical History / Comment(s): Mother is 81 yrs old. Father Family Medical History: Cancer Additional Family Medical History / Comment(s): Pt believes his father passed from lung cancer. He was a smoker. General Exam General appearance: alert, in no apparent distress, anxious Head exam: Present: atraumatic, normocephalic, normal inspection Eye exam: Present: normal appearance, PERRL, EOMI. Absent: scleral icterus, conjunctival injection, periorbital swelling ENT exam: Present: normal exam, mucous membranes moist Neck exam: Present: normal inspection. Absent: tenderness, meningismus, lymphadenopathy Respiratory exam: Present: normal lung sounds bilaterally. Absent: respiratory distress, wheezes, rales, rhonchi, stridor Cardiovascular Exam: Present: normal rhythm, tachycardia, normal heart sounds. Absent: systolic murmur, diastolic murmur, rubs, gallop, clicks GI/Abdominal exam: Present: soft, normal bowel sounds. Absent: distended, tenderness, guarding, rebound, rigid Extremities exam: Present: normal inspection, full ROM, normal capillary refill. Absent: tenderness, pedal edema, joint swelling, calf tenderness Back exam: Present: normal inspection Neurological exam: Present: alert, oriented X3, CN II-XII intact Psychiatric exam: Present: normal affect, normal mood Skin exam: Present: warm, dry, intact, normal color. Absent: rash Course Vital Signs 04/07/22 04/07/22 04:53 06:28 Temperature 98.2 F Pulse Rate 117 H 102 H Respiratory 22 22 Rate Blood Pressure 146/99 140/94 O2 Sat by Pulse 97 99 Oximetry - Reevaluation(s) Reevaluation #1: 04/07/22 06:00 Record is reviewed Reevaluation #2: 04/07/22 06:00 Patient symptoms are improved Reevaluation #3: 04/07/22 06:00 Patient informed of results and questions answered - Consultations Consultation #1: Spoke with Dr. Gonzales agrees to admit this patient Medical Decision Making - Lab Data Result diagrams: 04/08/22 06:32 04/08/22 06:32 Lab Results 04/07/22 04/07/22 04/07/22 Range/Units 05:01 05:01 05:01 WBC 6.0 (3.8-10.6) k/uL RBC 4.14 L (4.30-5.90) m/uL Hgb 13.1 (13.0-17.5) gm/dL Hct 41.1 (39.0-53.0) % MCV 99.2 (80.0-100.0) fL MCH 31.7 (25.0-35.0) pg MCHC 31.9 (31.0-37.0) g/dL RDW 14.0 (11.5-15.5) % Plt Count 211 (150-450) k/uL MPV 7.2 Neutrophils % 75 % Lymphocytes % 16 % Monocytes % 6 % Eosinophils % 1 % Basophils % 1 % Neutrophils # 4.4 (1.3-7.7) k/uL Lymphocytes # 1.0 (1.0-4.8) k/uL Monocytes # 0.4 (0-1.0) k/uL Eosinophils # 0.0 (0-0.7) k/uL Basophils # 0.1 (0-0.2) k/uL PT 10.0 (9.0-12.0) sec INR 0.9 (<1.2) APTT 23.6 (22.0-30.0) sec D-Dimer 2.68 H (<0.60) mg/L FEU Sodium 135 L (137-145) mmol/L Potassium 3.8 (3.5-5.1) mmol/L Chloride 98 (98-107) mmol/L Carbon Dioxide 25 (22-30) mmol/L Anion Gap 12 mmol/L BUN 12 (9-20) mg/dL Creatinine 0.74 (0.66-1.25) mg/dL Est GFR (CKD-EPI)AfAm >90 (>60 ml/min/1.73 sqM) Est GFR (CKD-EPI)NonAf >90 (>60 ml/min/1.73 sqM) Glucose 141 H (74-99) mg/dL Lactic Ac Sepsis Rflx Plasma Lactic Acid Azam (0.7-2.0) mmol/L Calcium 8.6 (8.4-10.2) mg/dL Total Bilirubin 0.4 (0.2-1.3) mg/dL AST 61 H (17-59) U/L ALT 52 H (4-49) U/L Alkaline Phosphatase 85 (38-126) U/L Troponin I (0.000-0.034) ng/mL Total Protein 6.8 (6.3-8.2) g/dL Albumin 4.1 (3.5-5.0) g/dL Serum Alcohol mg/dL 04/07/22 04/07/22 04/07/22 Range/Units 05:01 05:01 05:06 WBC (3.8-10.6) k/uL RBC (4.30-5.90) m/uL Hgb (13.0-17.5) gm/dL Hct (39.0-53.0) % MCV (80.0-100.0) fL MCH (25.0-35.0) pg MCHC (31.0-37.0) g/dL RDW (11.5-15.5) % Plt Count (150-450) k/uL MPV Neutrophils % % Lymphocytes % % Monocytes % % Eosinophils % % Basophils % % Neutrophils # (1.3-7.7) k/uL Lymphocytes # (1.0-4.8) k/uL Monocytes # (0-1.0) k/uL Eosinophils # (0-0.7) k/uL Basophils # (0-0.2) k/uL PT (9.0-12.0) sec INR (<1.2) APTT (22.0-30.0) sec D-Dimer (<0.60) mg/L FEU Sodium (137-145) mmol/L Potassium (3.5-5.1) mmol/L Chloride (98-107) mmol/L Carbon Dioxide (22-30) mmol/L Anion Gap mmol/L BUN (9-20) mg/dL Creatinine (0.66-1.25) mg/dL Est GFR (CKD-EPI)AfAm (>60 ml/min/1.73 sqM) Est GFR (CKD-EPI)NonAf (>60 ml/min/1.73 sqM) Glucose (74-99) mg/dL Lactic Ac Sepsis Rflx Plasma Lactic Acid Azam 4.4 H* (0.7-2.0) mmol/L Calcium (8.4-10.2) mg/dL Total Bilirubin (0.2-1.3) mg/dL AST (17-59) U/L ALT (4-49) U/L Alkaline Phosphatase (38-126) U/L Troponin I <0.012 (0.000-0.034) ng/mL Total Protein (6.3-8.2) g/dL Albumin (3.5-5.0) g/dL Serum Alcohol 156 mg/dL 04/07/22 Range/Units 05:57 WBC (3.8-10.6) k/uL RBC (4.30-5.90) m/uL Hgb (13.0-17.5) gm/dL Hct (39.0-53.0) % MCV (80.0-100.0) fL MCH (25.0-35.0) pg MCHC (31.0-37.0) g/dL RDW (11.5-15.5) % Plt Count (150-450) k/uL MPV Neutrophils % % Lymphocytes % % Monocytes % % Eosinophils % % Basophils % % Neutrophils # (1.3-7.7) k/uL Lymphocytes # (1.0-4.8) k/uL Monocytes # (0-1.0) k/uL Eosinophils # (0-0.7) k/uL Basophils # (0-0.2) k/uL PT (9.0-12.0) sec INR (<1.2) APTT (22.0-30.0) sec D-Dimer (<0.60) mg/L FEU Sodium (137-145) mmol/L Potassium (3.5-5.1) mmol/L Chloride (98-107) mmol/L Carbon Dioxide (22-30) mmol/L Anion Gap mmol/L BUN (9-20) mg/dL Creatinine (0.66-1.25) mg/dL Est GFR (CKD-EPI)AfAm (>60 ml/min/1.73 sqM) Est GFR (CKD-EPI)NonAf (>60 ml/min/1.73 sqM) Glucose (74-99) mg/dL Lactic Ac Sepsis Rflx Y Plasma Lactic Acid Azam (0.7-2.0) mmol/L Calcium (8.4-10.2) mg/dL Total Bilirubin (0.2-1.3) mg/dL AST (17-59) U/L ALT (4-49) U/L Alkaline Phosphatase (38-126) U/L Troponin I (0.000-0.034) ng/mL Total Protein (6.3-8.2) g/dL Albumin (3.5-5.0) g/dL Serum Alcohol mg/dL - EKG Data -: EKG Interpreted by Me (EKG is sinus tachycardia 109 [address] 170 QRS 90 QTC 385) Disposition Clinical Impression: Acute alcohol intoxication, Lactic acidosis, Alcoholic ketoacidosis, Dehydration, Weakness Disposition: ADMITTED IP TO THIS HOSP Condition: Fair Time of Disposition: 06:00
[2022-04-07] MEDS ORDERED: NALOXONE 0.4 MG/ML 1 ML VIAL IV PRN (06:12)
[2022-04-07] MEDS ORDERED: IPRATROPIUM-ALBUTEROL 3 ML NEB INHALATION PRN (06:30)
--- NOTE | 2022-04-07 08:22 | US ---
EXAMINATION TYPE: US venous doppler duplex LE RT DATE OF EXAM: 04/07/2022 7:50 AM COMPARISON: Prior lower extremity Doppler duplex 07/23/2020 CLINICAL HISTORY: DVT. SIDE PERFORMED: Right TECHNIQUE: The lower extremity deep venous system is examined utilizing real time linear array sonog mateo with graded compression, doppler sonography and color-flow sonography. VESSELS IMAGED: Common Femoral Vein Deep Femoral Vein Greater Saphenous Vein * Femoral Vein Popliteal Vein Small Saphenous Vein * Proximal Calf Veins (* superficial vessels) Right Leg: Within the visualized external iliac vein on the right, the common femoral vein there is color flow, vascular waveforms present. There is some. Femoral vein centrally on the right. There are some low-level internal echoes within the femoral vein on the right with a lack of complete compress ibility, one of the 2 veins appears to compress normally. There is some color flow noted. There is lo w-level internal echoes in one of the femoral veins however more peripherally with lack of compressib ility. Popliteal vein compresses normally centrally in its midportion, more peripherally there is a l ack of complete compressibility with some low-level internal echoes, there is lack of compressibility and color flow noted more peripherally. IMPRESSION: Findings are consistent with deep venous thrombosis of questionable acuity, patient with known prior deep venous thrombosis on prior exam
[2022-04-07] MEDS: MULTIVITAMINS, THERA 1 EACH TAB PO SCH (08:24)
[2022-04-07] MEDS: DEXTROSE 5%-0.45% NACL 1,000 ML IV SCH ×3 (08:24→23:08)
[2022-04-07 08:59] LABS: Appearance,Urine Clear (Clear); Bilirubin,Urine Negative (Negative); Blood,Urine Negative (Negative); Color,Urine Yellow; Glucose,Urine (UA) Negative (Negative); Ketones,Urine Trace (Negative); Leukocyte Esterase,Urine Negative (Negative); Nitrite,Urine Negative (Negative); PH, Urine 6.5 (5.0-8.0); Protein,Urine Trace (Negative); Specific Gravity,Urine 1.025 (1.001-1.035); Urobilinogen,Urine <2.0 mg/dL (<2.0)
[2022-04-07] MEDS: ONDANSETRON 4 MG/2 ML VIAL IVP PRN ×2 (09:04→17:02)
[2022-04-07] MEDS: LORazepam 2 MG/ML INJ IV PRN ×2 (10:06→12:46)
[2022-04-07] MEDS ORDERED: FAMOTIDINE 20 MG TAB PO PRN (10:33)
[2022-04-07] MEDS ORDERED: ALBUTEROL NEBULIZED 2.5 MG/3 ML INHALATION PRN (10:33)
[2022-04-07] MEDS: ACAMPROSATE CALCIUM 333 MG TABLET.DR PO SCH ×3 (12:28→22:34)
[2022-04-07] MEDS: MAGNESIUM OXIDE 400 MG TAB PO SCH ×3 (12:29→22:34)
[2022-04-07] MEDS: THIAMINE 100 MG TAB PO SCH ×2 (12:29→18:02)
[2022-04-07] MEDS ORDERED: THIAMINE 100 MG TAB PO SCH (17:30)
--- NOTE | 2022-04-07 17:43 | HP ---
HISTORY AND PHYSICAL CHIEF COMPLAINT: Acute alcohol intoxication. HISTORY OF PRESENT ILLNESS: This is a return admission for this 61-year-old white male, chronic alcoholic. He has been in the hospital twice in the last month. The first time he was discharged home with elevated liver function studies and pancytopenia. He was followed up in the office and then was readmitted a week or so ago with evidence of bone marrow recovery. However, he came back in again this time acutely intoxicated. Review of systems is not easy to obtain due to his intoxication. Past medical history, family history, and personal and social histories are all otherwise essentially unremarkable or noncontributory or unchanged. He has a history of thrombophlebitis and has been on anticoagulants. I did not send him home on them recently because his platelet count was low. He denies any pain, swelling, cough, hemoptysis, etc. PHYSICAL EXAMINATION: Blood pressure is 156/91 with a pulse of 94 and respirations of 40. In general he appeared to be slightly overweight and he was intoxicated. Skin color was normal. Skin was warm and dry. Lymph nodes were not enlarged. Head, ears, eyes, nose, mouth and throat were normal. Neck veins were not distended. Thyroid was not enlarged. Chest was clear. Cardiac exam was normal. The abdomen is protuberant, soft and nontender without any visceromegaly or masses. Bowel sounds are present. Extremities are normal. Neurologically he is intact. IMPRESSION: 1. Acute alcohol intoxication. 2. Impending delirium tremens. 3. Chronic alcoholism. 4. History of alcoholic hepatitis. 5. History of alcoholic pancytopenia. 6. History of deep vein thrombosis. PLAN: 1. Bedrest. 2. IV fluids. 3. CIWA protocol. 4. Resume anticoagulation based on his lower extremity venous Doppler. MMODL / IJN: [id number] /
[2022-04-07] MEDS: APIXABAN 5 MG TAB PO SCH (20:10)
[2022-04-07] MEDS: METOPROLOL TARTRATE 25 MG TAB PO SCH (20:10)
[2022-04-07] MEDS: SYMBICORT 160-4.5 MCG INHALER INHALATION SCH (20:26)
[2022-04-07] MEDS: ACETAMINOPHEN TAB 325 MG TAB PO PRN (22:36)
[2022-04-08] MEDS: SYMBICORT 160-4.5 MCG INHALER INHALATION SCH ×2 (08:23→19:13)
[2022-04-08] MEDS ORDERED: MULTIVITAMINS, THERA 1 EACH TAB PO SCH (09:00)
[2022-04-08] MEDS: MULTIVITAMINS, THERA 1 EACH TAB PO SCH (09:02)
[2022-04-08] MEDS: MAGNESIUM OXIDE 400 MG TAB PO SCH ×3 (09:02→21:46)
[2022-04-08] MEDS: THIAMINE 100 MG TAB PO SCH ×2 (09:02→16:59)
[2022-04-08] MEDS: APIXABAN 5 MG TAB PO SCH ×2 (09:02→21:46)
[2022-04-08] MEDS: METOPROLOL TARTRATE 25 MG TAB PO SCH ×2 (09:03→21:46)
[2022-04-08] MEDS: ACAMPROSATE CALCIUM 333 MG TABLET.DR PO SCH ×3 (09:03→21:56)
[2022-04-08 09:27] LABS: African American GFR (CKD) 112.5 (60.0-200.0); Anion Gap 11.5 mmol/L (10.00-18.00); BUN/Creat Ratio 7.88 Ratio (12.00-20.00); Blood Urea Nitrogen 6.3 mg/dL (9.0-27.0); Calcium 8.9 mg/dL (8.7-10.3); Carbon Dioxide 25.5 mmol/L (20.0-27.5); Magnesium 1.9 mg/dL (1.5-2.4); Non-African American GFR(CKD) 97.1 (60.0-200.0); Phosphorus 3.2 mg/dL (2.4-5.1); Potassium 4.2 mmol/L (3.5-5.5)
[2022-04-08 09:34] LABS: Basophils # (A) 0.02 X 10*3/uL (0.00-0.10); Basophils % (A) 0.7 %; Eosinophils # (A) 0.03 X 10*3/uL (0.04-0.35); Eosinophils % (A) 1.1 %; HCT 40.9 % (39.6-50.0); HGB 12.9 g/dL (13.0-17.0); Immature Grans, Automated 0.4 %; Lymphocytes # (A) 0.88 X 10*3/uL (0.90-5.00); Lymphocytes % (A) 32.7 %; MCH 31.1 pg (27.0-32.0); MCHC 31.5 g/dL (32.0-37.0); MCV 98.6 fL (80.0-97.0); Mean Platelet Volume 10.5 fL (9.5-12.2); Monocytes # (A) 0.45 X 10*3/uL (0.20-1.00); Monocytes % (A) 16.7 %; NRBC Per 100 WBC 0 /100 WBCS (0.0-0.0); Neutrophils % (A) 48.4 %; Platelet Count 181 X 10*3/uL (140-440); RBC 4.15 X 10*6/uL (4.40-5.60); RDW 14.5 % (11.5-14.5); WBC 2.69 X 10*3/uL (4.50-10.00)
[2022-04-08] MEDS: diazePAM 5 MG/ML 1 ML VIAL IVP SCH ×2 (20:43→23:53)
[2022-04-08] MEDS: DEXTROSE 5%-0.45% NACL 1,000 ML IV SCH (23:35)
[2022-04-09] MEDS: DEXTROSE 5%-0.45% NACL 1,000 ML IV SCH ×3 (00:46→16:37)
[2022-04-09] MEDS: diazePAM 5 MG/ML 1 ML VIAL IVP SCH ×2 (03:56→07:40)
[2022-04-09] MEDS: SYMBICORT 160-4.5 MCG INHALER INHALATION SCH ×2 (08:32→19:32)
[2022-04-09] MEDS: ACAMPROSATE CALCIUM 333 MG TABLET.DR PO SCH ×3 (09:15→21:20)
[2022-04-09] MEDS: APIXABAN 5 MG TAB PO SCH ×2 (09:16→21:20)
[2022-04-09] MEDS: MAGNESIUM OXIDE 400 MG TAB PO SCH ×3 (09:17→21:20)
[2022-04-09] MEDS: MULTIVITAMINS, THERA 1 EACH TAB PO SCH (09:19)
[2022-04-09] MEDS: THIAMINE 100 MG TAB PO SCH ×2 (09:19→16:46)
[2022-04-09] MEDS: METOPROLOL TARTRATE 25 MG TAB PO SCH (09:20)
[2022-04-09] MEDS: METOPROLOL SUCCINATE (ER) 100 MG TAB.ER.24H PO SCH (12:31)
[2022-04-09] MEDS: diazePAM 5 MG TAB PO SCH ×3 (12:31→21:20)
[2022-04-10] MEDS: diazePAM 5 MG TAB PO SCH ×6 (00:19→19:57)
[2022-04-10] MEDS: DEXTROSE 5%-0.45% NACL 1,000 ML IV SCH ×2 (06:49→11:24)
[2022-04-10] MEDS: ACAMPROSATE CALCIUM 333 MG TABLET.DR PO SCH ×3 (07:23→22:49)
[2022-04-10] MEDS: APIXABAN 5 MG TAB PO SCH ×2 (07:23→19:57)
[2022-04-10] MEDS: THIAMINE 100 MG TAB PO SCH ×2 (07:23→16:48)
[2022-04-10] MEDS: MAGNESIUM OXIDE 400 MG TAB PO SCH ×3 (07:23→22:48)
[2022-04-10] MEDS: MULTIVITAMINS, THERA 1 EACH TAB PO SCH (07:23)
[2022-04-10] MEDS: METOPROLOL SUCCINATE (ER) 100 MG TAB.ER.24H PO SCH (07:24)
[2022-04-10] MEDS: SYMBICORT 160-4.5 MCG INHALER INHALATION SCH ×2 (09:12→19:23)
--- NOTE | 2022-04-10 13:03 | PN ---
PROGRESS NOTE DATE OF SERVICE: 04/08/2022. CHIEF COMPLAINT: DTs. HISTORY OF PRESENT ILLNESS: This gentleman is still very shaky and unsteady. He has not had any diplopia. He has had no chest pain or shortness of breath. PHYSICAL EXAMINATION: He is awake and alert. Chest is clear. Cardiac exam demonstrates sinus tachycardia. Abdomen is protuberant, soft and nontender. He is tremulous. IMPRESSION: 1. DTs. 2. Chronic alcoholism. PLAN: Continue with protocol and monitor vital signs as well as laboratory studies. MMODL / IJN: [id number] /
[2022-04-10] MEDS: ACETAMINOPHEN TAB 325 MG TAB PO PRN (13:16)
--- NOTE | 2022-04-10 14:00 | PN ---
PROGRESS NOTE DATE OF SERVICE: 04/09/2022 CHIEF COMPLAINT: DTs. HISTORY OF PRESENT ILLNESS: This gentleman is still feeling shaky, but he is improving. He is not actually having any problem with tremors now. He has had no diplopia. Vital signs are stable. PHYSICAL EXAMINATION: His chest is clear. Cardiac exam is normal. Abdomen is soft, nontender. IMPRESSION: 1. Delirium tremens. 2. Chronic alcoholism. 3. History of pancytopenia. PLAN: Progress activity and diet and probably home in the next day or two. MMODL / IJN: [id number] /
--- NOTE | 2022-04-10 15:09 | PN ---
PROGRESS NOTE CHIEF COMPLAINT: DTs and alcoholism. HISTORY OF PRESENT ILLNESS: This gentleman is doing a little bit better. He is less tremulous. Strength is improving. He feels he needs one more day in the hospital. PHYSICAL EXAMINATION: Vital signs are normal. Chest is clear. Cardiac exam is normal. Abdomen is protuberant, soft and nontender. IMPRESSION: 1. Delirium tremens. 2. Alcoholism. PLAN: Continue with protocol and probably home tomorrow. MMODL / IJN: [id number] /
[2022-04-11] MEDS: diazePAM 5 MG TAB PO SCH ×3 (00:01→09:11)
[2022-04-11] MEDS: DEXTROSE 5%-0.45% NACL 1,000 ML IV SCH ×2 (00:02→07:01)
[2022-04-11] MEDS: THIAMINE 100 MG TAB PO SCH (07:06)
[2022-04-11] MEDS: ACAMPROSATE CALCIUM 333 MG TABLET.DR PO SCH (07:06)
[2022-04-11] MEDS: MULTIVITAMINS, THERA 1 EACH TAB PO SCH (07:06)
[2022-04-11] MEDS: APIXABAN 5 MG TAB PO SCH (07:06)
[2022-04-11] MEDS: MAGNESIUM OXIDE 400 MG TAB PO SCH (07:06)
[2022-04-11] MEDS: METOPROLOL SUCCINATE (ER) 100 MG TAB.ER.24H PO SCH (07:06)
[2022-04-11] MEDS: ACETAMINOPHEN TAB 325 MG TAB PO PRN (07:10)
[2022-04-11] MEDS: SYMBICORT 160-4.5 MCG INHALER INHALATION SCH (07:33)
[2022-04-11 08:00] VITALS: BP 137/92; PULSE 69; RESP 18; TEMP 97.6
--- NOTE | 2022-04-15 05:49 | DS ---
DISCHARGE SUMMARY CHIEF COMPLAINT: Acute alcohol intoxication and DTs. HISTORY OF PRESENT ILLNESS AND PHYSICAL EXAMINATION: Details of this man's history and physical can be found in the initial workup. LABORATORY STUDIES: While he was in the hospital, he had laboratory studies, details of which can be found in the laboratory section of chart. COURSE IN THE HOSPITAL: After admission, he was placed on bedrest, started intravenous fluids and CIWA protocol. He did well. His liver enzymes were slightly elevated, but came down. His bone marrow did not demonstrate suppression at this time. He was fairly stable and doing well, and he felt safe going home on the , and he can go home on his usual activity, diet, and regular medications in addition to Campral 666 mg t.i.d., and he will be seen in several days. FINAL DIAGNOSES: 1. Acute alcohol intoxication. 2. Delirium tremens. 3. Chronic alcoholism. 4. Pancytopenia. 5. Alcoholic hepatitis. OPERATIONS: None. CONSULTATION: None. He is improved. MMBLANKAL / ILENEN: [id number] /
== END 2022-04-11 13:00 | disposition home or self-care (01) | DRG 897 ==
LOC: EC 04:52 → 4SSUR 06:12
PROVIDERS: ADMIT Family Medicine; ATTEND Family Medicine
DX: F10.231 Alcohol dependence with withdrawal delirium (principal); E87.2 Acidosis; D61.818 Other pancytopenia; G93.40 Encephalopathy, unspecified; Y90.6 Blood alcohol level of 120-199 mg/100 ml; F10.229 Alcohol dependence with intoxication, unspecified; E86.0 Dehydration; F17.210 Nicotine dependence, cigarettes, uncomplicated; I48.91 Unspecified atrial fibrillation; I73.9 Peripheral vascular disease, unspecified; F32.A Depression, unspecified; Z86.711 Personal history of pulmonary embolism; Z86.718 Personal history of other venous thrombosis and embolism; K76.0 Fatty (change of) liver, not elsewhere classified; J44.9 Chronic obstructive pulmonary disease, unspecified; F41.9 Anxiety disorder, unspecified; G47.33 Obstructive sleep apnea (adult) (pediatric); G89.29 Other chronic pain; I87.2 Venous insufficiency (chronic) (peripheral); K21.9 Gastro-esophageal reflux disease without esophagitis; L98.9 Disorder of the skin and subcutaneous tissue, unspecified; M19.90 Unspecified osteoarthritis, unspecified site; M54.50 Low back pain, unspecified; Z86.14 Personal history of Methicillin resistant Staphylococcus aureus infection; Z79.899 Other long term (current) drug therapy; Z88.0 Allergy status to penicillin
CPT/HCPCS: 36415; 71046; 80048; 80053; 80320; 81003; 83605; 83735; 84100; 84484; 85025; 85379; 85610; 85730; 93005; 94640; 94760; 96372; 96374; 99285

== ENCOUNTER 2022-05-22 18:43 | Inpatient (IN) | payer OTHER ==
--- NOTE | 2022-05-22 19:18 | ED ---
General Adult HPI - General Source: patient, EMS Mode of arrival: EMS Limitations: no limitations <Rome Maxwell - Last Filed: 05/22/22 20:50> - History of Present Illness -: days(s) Location: left, right, lower extremity Radiation: extremity Severity scale (1-10): 7 Quality: aching Consistency: constant Improves with: none Worsens with: none Associated Symptoms: loss of appetite, nausea/vomiting Treatments Prior to Arrival: none <Berlin Ray - Last Filed: 05/22/22 22:09> - General Chief complaint: Extremity Problem,Nontraumatic Stated complaint: swollen legs Time Seen by Provider: 05/22/22 19:03 - History of Present Illness Initial comments: Dictation was produced using [employer] dictation software. please excuse any grammatical, word or spelling errors. Chief Complaint: 61-year-old male past medical history of alcoholism presents emergency department for bilateral lower extremities edema History of Present Illness: 61-year-old male who states he lives at home by himself. He states he drinks a fifth of alcohol daily. Patient presents to the emergency department for lower extremity swelling bilaterally. Patient states he has normal erythema to his bilateral lower extremities. Patient's last alcohol intake was 2 days ago. He has been consuming large amounts of alcohol on a daily basis for several years. Patient is brought in by EMS. Patient reports that he soiled himself after sitting in his urine for several hours. Patient denies any chest pain or shortness of breath. The ROS documented in this emergency department record has been reviewed and confirmed by me. Those systems with pertinent positive or negative responses have been documented in the HPI. All other systems are other negative and/or noncontributory. PHYSICAL EXAM: General Impression: Alert and oriented x3, not in acute distress, malodorous HEENT: Normocephalic atraumatic, extra-ocular movements intact, pupils equal and reactive to light bilaterally, mucous membranes moist. Cardiovascular: Heart regular rate and rhythm Chest: Able to complete full sentences, no retractions, no tachypnea Abdomen: abdomen soft, non-tender, non-distended, no organomegaly Musculoskeletal: Pulses present and equal in all extremities, 1+ peripheral edema Motor: no focal deficits noted Neurological: CN II-XII grossly intact, no focal motor or sensory deficits noted Skin: Intact with no visualized rashes Psych: Normal affect and mood ED course: 61 y Old male presents emergency department for bilateral lower extremity edema. Patient has very mild edema on physical examination. He is in no acute distress patient does not have any respiratory symptoms. As upon arrival shows heart rate of 130, rest of vital signs within acceptable limits. Patient is a chronic alcoholic. He reports his last alcohol intake was around 48 hours ago. Patient not showing any signs of alcohol withdrawal. EKG interpretation: Ventricular rate 104, sinus tachycardia, VA interval 169, care is 89, QTC 47. No VA prolongation, no QTC prolongation, no ST or T-wave changes noted. EKG compared to 05/01/2022 showing no changes. Overall, this EKG is unremarkable Patient care signed out to Dr. Juarez At 9:00 PM. (Rome Maxwell) - Related Data Home Medications Medication Instructions Recorded Confirmed Multivitamins, Thera [Multivitamin 1 tab PO DAILY 01/09/22 05/01/22 (formulary)] Albuterol Inhaler [Ventolin Hfa 2 puff INHALATION RT-TID PRN 02/26/22 05/01/22 Inhaler] Famotidine [Pepcid] 20 mg PO BID PRN 02/26/22 05/01/22 Budesonide-Formot 160-4.5 Mcg 2 puff INHALATION RT-BID 04/07/22 05/01/22 [Symbicort 160-4.5 Mcg Inhaler] Previous Rx's Medication Instructions Recorded Thiamine [Vitamin B-1] 100 mg PO BID-W/MEALS #60 tab 11/07/21 Acetaminophen Tab [Tylenol] 650 mg PO Q6HR PRN tab 01/12/22 Magnesium Oxide [Mag-Ox] 400 mg PO TID 30 Days #90 tab 01/12/22 Acamprosate Calcium [Campral] 666 mg PO TID #30 tab 03/31/22 Apixaban [Eliquis] 5 mg PO BID #60 tab 04/11/22 Metoprolol Succinate (ER) [Toprol 100 mg PO DAILY #30 tab 04/11/22 XL] Losartan [Cozaar] 100 mg PO DAILY #10 tab 04/25/22 cloNIDine HCL [Catapres] 0.2 mg PO TID #90 tab 05/04/22 Allergies Allergy/AdvReac Type Severity Reaction Status Date / Time Penicillins Allergy Mild Rash/Hives Verified 05/22/22 18:59 Review of Systems ROS Other: All systems not noted in ROS Statement are negative. <Rome Maxwell - Last Filed: 05/22/22 20:50> ROS Other: All systems not noted in ROS Statement are negative. <Berlin Ray - Last Filed: 05/22/22 22:09> ROS Statement: Those systems with pertinent positive or pertinent negative responses have been documented in the HPI. Past Medical History Past Medical History: Atrial Fibrillation, COPD, Deep Vein Thrombosis (DVT), GERD/Reflux, Liver Disease, Osteoarthritis (OA), Pulmonary Embolus (PE), Sleep Apnea/CPAP/BIPAP, Vascular Disorder Additional Past Medical History / Comment(s): ETOH abuse, alcohol withdrawal/DTs, alcoholic hepatitis, hepatic steatosis, chronic encephalopathy, thrombocytopenia/pancytopenia, 03/2020 fall with brain bleed-transferred from [facility] to [facility]-pt states he still has chronic headaches, chronic low back pain, PVD, chronic venous stasis dermatitis, past DVT R leg and PEs- laterallity unknown, SOB with exertion, LYRIC/no device, bilateral lower leg discolored/edematous. History of Any Multi-Drug Resistant Organisms: MRSA Date of last positivie culture/infection: 2006 MDRO Source:: unk Past Surgical History: Orthopedic Surgery Additional Past Surgical History / Comment(s): Left hand tendon surgery, EGD Past Anesthesia/Blood Transfusion Reactions: No Reported Reaction Past Psychological History: No Psychological Hx Reported Smoking Status: Current every day smoker, Light tobacco smoker Past Alcohol Use History: Abuse, Daily, Heavy - Past Family History Mother Family Medical History: AFIB Father Family Medical History: Cancer Additional Family Medical History / Comment(s): Pt believes his father passed from lung cancer. He was a smoker. <Rome Maxwell - Last Filed: 05/22/22 20:50> General Exam Limitations: no limitations <Rome Maxwell - Last Filed: 05/22/22 20:50> General appearance: alert, in no apparent distress, anxious Head exam: Present: atraumatic, normocephalic, normal inspection Eye exam: Present: normal appearance, PERRL, EOMI. Absent: scleral icterus, conjunctival injection, periorbital swelling ENT exam: Present: normal exam, mucous membranes moist Neck exam: Present: normal inspection. Absent: tenderness, meningismus, lymphadenopathy Respiratory exam: Present: normal lung sounds bilaterally. Absent: respiratory distress, wheezes, rales, rhonchi, stridor Cardiovascular Exam: Present: normal rhythm, tachycardia, normal heart sounds. Absent: systolic murmur, diastolic murmur, rubs, gallop, clicks GI/Abdominal exam: Present: soft, normal bowel sounds. Absent: distended, tenderness, guarding, rebound, rigid Extremities exam: Present: normal inspection, full ROM, normal capillary refill. Absent: tenderness, pedal edema, joint swelling, calf tenderness Back exam: Present: normal inspection Neurological exam: Present: alert, oriented X3, CN II-XII intact Psychiatric exam: Present: normal affect, normal mood Skin exam: Present: warm, dry, intact, normal color. Absent: rash <Berlin Ray - Last Filed: 05/22/22 22:09> Course <Berlin Ray - Last Filed: 05/22/22 22:09> Vital Signs 05/22/22 18:52 Temperature 97.6 F Pulse Rate 113 H Respiratory 20 Rate Blood Pressure 122/72 O2 Sat by Pulse 96 Oximetry - Reevaluation(s) Reevaluation #1: 05/22/22 22:06 Medical records are reviewed (Berlin Ray) Reevaluation #2: 05/22/22 22:06 Patient showing no improvement here in the ER (Berlin Ray) Reevaluation #3: 05/22/22 22:06 Patient informed results questions answered (Berlin Ray) - Consultations Consultation #1: spoke with Dr. Gonzales who agrees to admit this patient (Berlin Ray) Medical Decision Making - Lab Data Result diagrams: 05/22/22 20:55 05/22/22 20:55 - Radiology Data Radiology results: report reviewed (Chest x-rays negative for significant acute disease), image reviewed <Berlin Ray - Last Filed: 05/22/22 22:09> - Medical Decision Making 7-year-old male DF for evaluation patient presents with lower extremity edema and alcohol intoxication. Patient be admitted for further evaluation management (Berlin Ray) - Lab Data Lab Results 05/22/22 05/22/22 05/22/22 Range/Units 20:29 20:55 20:55 WBC 13.7 H (3.8-10.6) k/uL RBC 4.74 (4.30-5.90) m/uL Hgb 14.8 (13.0-17.5) gm/dL Hct 45.6 (39.0-53.0) % MCV 96.3 (80.0-100.0) fL MCH 31.3 (25.0-35.0) pg MCHC 32.5 (31.0-37.0) g/dL RDW 13.9 (11.5-15.5) % Plt Count 170 (150-450) k/uL MPV 7.1 Neutrophils % 87 % Lymphocytes % 6 % Monocytes % 3 % Eosinophils % 2 % Basophils % 1 % Neutrophils # 11.9 H (1.3-7.7) k/uL Lymphocytes # 0.9 L (1.0-4.8) k/uL Monocytes # 0.5 (0-1.0) k/uL Eosinophils # 0.3 (0-0.7) k/uL Basophils # 0.1 (0-0.2) k/uL PT (9.0-12.0) sec INR (<1.2) APTT (22.0-30.0) sec Sodium 133 L (137-145) mmol/L Potassium 4.5 (3.5-5.1) mmol/L Chloride 92 L (98-107) mmol/L Carbon Dioxide 20 L (22-30) mmol/L Anion Gap 21 mmol/L BUN 9 (9-20) mg/dL Creatinine 0.69 (0.66-1.25) mg/dL Est GFR (CKD-EPI)AfAm >90 (>60 ml/min/1.73 sqM) Est GFR (CKD-EPI)NonAf >90 (>60 ml/min/1.73 sqM) Glucose 84 (74-99) mg/dL Plasma Lactic Acid Azam (0.7-2.0) mmol/L Calcium 8.8 (8.4-10.2) mg/dL Magnesium 1.6 (1.6-2.3) mg/dL Total Bilirubin 1.4 H (0.2-1.3) mg/dL AST 59 (17-59) U/L ALT 46 (4-49) U/L Alkaline Phosphatase 91 (38-126) U/L Total Protein 7.1 (6.3-8.2) g/dL Albumin 4.7 (3.5-5.0) g/dL Urine Color Colorless Urine Appearance Clear (Clear) Urine pH 6.0 (5.0-8.0) Ur Specific [place] 1.004 (1.001-1.035) Urine Protein Negative (Negative) Urine Glucose (UA) Negative (Negative) Urine Ketones 2+ H (Negative) Urine Blood Negative (Negative) Urine Nitrite Negative (Negative) Urine Bilirubin Negative (Negative) Urine Urobilinogen <2.0 (<2.0) mg/dL Ur Leukocyte Esterase Negative (Negative) Serum Alcohol 194 mg/dL 05/22/22 05/22/22 Range/Units 20:55 20:55 WBC (3.8-10.6) k/uL RBC (4.30-5.90) m/uL Hgb (13.0-17.5) gm/dL Hct (39.0-53.0) % MCV (80.0-100.0) fL MCH (25.0-35.0) pg MCHC (31.0-37.0) g/dL RDW (11.5-15.5) % Plt Count (150-450) k/uL MPV Neutrophils % % Lymphocytes % % Monocytes % % Eosinophils % % Basophils % % Neutrophils # (1.3-7.7) k/uL Lymphocytes # (1.0-4.8) k/uL Monocytes # (0-1.0) k/uL Eosinophils # (0-0.7) k/uL Basophils # (0-0.2) k/uL PT 10.0 (9.0-12.0) sec INR 0.9 (<1.2) APTT 22.8 (22.0-30.0) sec Sodium (137-145) mmol/L Potassium (3.5-5.1) mmol/L Chloride (98-107) mmol/L Carbon Dioxide (22-30) mmol/L Anion Gap mmol/L BUN (9-20) mg/dL Creatinine (0.66-1.25) mg/dL Est GFR (CKD-EPI)AfAm (>60 ml/min/1.73 sqM) Est GFR (CKD-EPI)NonAf (>60 ml/min/1.73 sqM) Glucose (74-99) mg/dL Plasma Lactic Acid Azam 3.3 H* (0.7-2.0) mmol/L Calcium (8.4-10.2) mg/dL Magnesium (1.6-2.3) mg/dL Total Bilirubin (0.2-1.3) mg/dL AST (17-59) U/L ALT (4-49) U/L Alkaline Phosphatase (38-126) U/L Total Protein (6.3-8.2) g/dL Albumin (3.5-5.0) g/dL Urine Color Urine Appearance (Clear) Urine pH (5.0-8.0) Ur Specific [place] (1.001-1.035) Urine Protein (Negative) Urine Glucose (UA) (Negative) Urine Ketones (Negative) Urine Blood (Negative) Urine Nitrite (Negative) Urine Bilirubin (Negative) Urine Urobilinogen (<2.0) mg/dL Ur Leukocyte Esterase (Negative) Serum Alcohol mg/dL Disposition <Rome Maxwell - Last Filed: 05/22/22 20:50> Is patient prescribed a controlled substance at d/c from ED?: No <Berlin Ray - Last Filed: 05/22/22 22:09> Clinical Impression: Acute alcohol intoxication, Dehydration, Weakness, Bilateral lower extremity edema Disposition: ADMITTED IP TO THIS HOSP Condition: Fair Referrals: Hernan Gonzales MD [Primary Care Provider] - 1-2 days
[2022-05-22 20:48] LABS: Appearance,Urine Clear (Clear); Bilirubin,Urine Negative (Negative); Blood,Urine Negative (Negative); Color,Urine Colorless; Glucose,Urine (UA) Negative (Negative); Ketones,Urine 2+ (Negative); Leukocyte Esterase,Urine Negative (Negative); Nitrite,Urine Negative (Negative); Protein,Urine Negative (Negative); Specific Gravity,Urine 1.004 (1.001-1.035); Urobilinogen,Urine <2.0 mg/dL (<2.0)
[2022-05-22 21:05] LABS: Basophils # (A) 0.1 k/uL (0-0.2); Basophils % (A) 1 %; Eosinophils # (A) 0.3 k/uL (0-0.7); Eosinophils % (A) 2 %; HCT 45.6 % (39.0-53.0); HGB 14.8 gm/dL (13.0-17.5); Lymphocytes # (A) 0.9 k/uL (1.0-4.8); Lymphocytes % (A) 6 %; MCH 31.3 pg (25.0-35.0); MCHC 32.5 g/dL (31.0-37.0); MCV 96.3 fL (80.0-100.0); Mean Platelet Volume 7.1; Monocytes # (A) 0.5 k/uL (0-1.0); Monocytes % (A) 3 %; Neutrophils # (A) 11.9 k/uL (1.3-7.7); Neutrophils % (A) 87 %; Platelet Count 170 k/uL (150-450); RBC 4.74 m/uL (4.30-5.90); RDW 13.9 % (11.5-15.5); WBC 13.7 k/uL (3.8-10.6)
[2022-05-22 21:13] LABS: INR 0.9 (<1.2); Partial Thromboplastin Time 22.8 sec (22.0-30.0)
[2022-05-22 21:19] LABS: ALT 46 U/L (4-49); AST 59 U/L (17-59); African American GFR (CKD) >90 (>60 ml/min/1.73 sqM); Albumin 4.7 g/dL (3.5-5.0); Alkaline Phosphatase 91 U/L (38-126); Anion Gap 21 mmol/L; Blood Urea Nitrogen 9 mg/dL (9-20); Calcium 8.8 mg/dL (8.4-10.2); Carbon Dioxide 20 mmol/L (22-30); Chloride 92 mmol/L (98-107); Glucose 84 mg/dL (74-99); Magnesium 1.6 mg/dL (1.6-2.3); Non-African American GFR(CKD) >90 (>60 ml/min/1.73 sqM); Potassium 4.5 mmol/L (3.5-5.1); Sodium 133 mmol/L (137-145); Total Bilirubin 1.4 mg/dL (0.2-1.3); Total Protein 7.1 g/dL (6.3-8.2)
[2022-05-22 21:32] LABS: Alcohol 194 mg/dL
[2022-05-22] MEDS ORDERED: SODIUM CHLORIDE 0.9% 1,000 ML IV STA (21:46)
[2022-05-22] MEDS ORDERED: SODIUM CHLORIDE 0.9% 500 ML 500 ML IV STA (21:46)
[2022-05-22] MEDS ORDERED: LORazepam 2 MG/ML INJ IV STA (21:46)
[2022-05-22] MEDS ORDERED: NALOXONE 0.4 MG/ML 1 ML VIAL IV PRN (22:03)
[2022-05-22] MEDS ORDERED: MORPHINE SULFATE 4 MG/ML SYRINGE IV PRN (22:03)
[2022-05-22] MEDS ORDERED: LORazepam 2 MG/ML INJ IV PRN ×2 (22:03)
[2022-05-22] MEDS ORDERED: THIAMINE 100 MG/ML 2 ML VIAL IM STA (22:03)
[2022-05-22] MEDS ORDERED: MAGNESIUM OXIDE 400 MG TAB PO STA ×2 (22:05)
--- NOTE | 2022-05-22 22:36 | XR ---
EXAMINATION TYPE: XR chest 1V portable DATE OF EXAM: 05/22/2022 COMPARISON: 05/01/2022 HISTORY: Short of breath TECHNIQUE: FINDINGS: Heart is normal. Lungs are clear of infiltrate. No heart failure. There are chest leads. IMPRESSION: No active cardiopulmonary disease. Normal heart. No change.
[2022-05-22] MEDS: THIAMINE 100 MG TAB PO SCH (22:43)
[2022-05-22] MEDS: SODIUM CHLORIDE 0.9% 1,000 ML IV SCH (22:54)
[2022-05-23] MEDS: LORazepam 2 MG/ML INJ IV PRN ×3 (01:33→14:24)
[2022-05-23] MEDS: ONDANSETRON 4 MG/2 ML VIAL IVP PRN ×3 (01:33→23:16)
[2022-05-23] MEDS ORDERED: LORazepam 1 MG/0.5 ML VIAL IV PRN (03:25)
[2022-05-23 04:08] LABS: Basophils % (A) 0 %; Eosinophils # (A) 0.1 k/uL (0-0.7); Eosinophils % (A) 1 %; HCT 42.4 % (39.0-53.0); Lymphocytes # (A) 0.6 k/uL (1.0-4.8); Lymphocytes % (A) 9 %; MCH 32.4 pg (25.0-35.0); MCV 98.1 fL (80.0-100.0); Mean Platelet Volume 7.3; Monocytes # (A) 0.3 k/uL (0-1.0); Monocytes % (A) 4 %; Neutrophils # (A) 6.3 k/uL (1.3-7.7); Neutrophils % (A) 85 %; Platelet Count 139 k/uL (150-450); RBC 4.32 m/uL (4.30-5.90); RDW 13.9 % (11.5-15.5); WBC 7.4 k/uL (3.8-10.6)
[2022-05-23 04:28] LABS: ALT 40 U/L (4-49); AST 51 U/L (17-59); African American GFR (CKD) >90 (>60 ml/min/1.73 sqM); Albumin 3.9 g/dL (3.5-5.0); Alkaline Phosphatase 82 U/L (38-126); Anion Gap 15 mmol/L; Blood Urea Nitrogen 8 mg/dL (9-20); Calcium 8.1 mg/dL (8.4-10.2); Carbon Dioxide 22 mmol/L (22-30); Chloride 95 mmol/L (98-107); Glucose 66 mg/dL (74-99); Lipase 92 U/L (23-300); Magnesium 1.7 mg/dL (1.6-2.3); Non-African American GFR(CKD) >90 (>60 ml/min/1.73 sqM); Phosphorus 2.1 mg/dL (2.5-4.5); Potassium 3.9 mmol/L (3.5-5.1); Sodium 132 mmol/L (137-145); Total Bilirubin 1.4 mg/dL (0.2-1.3); Total Protein 6.2 g/dL (6.3-8.2)
[2022-05-23] MEDS: THIAMINE 100 MG TAB PO SCH ×2 (08:54→16:05)
[2022-05-23] MEDS: ACETAMINOPHEN TAB 325 MG TAB PO PRN ×2 (11:25→23:16)
--- NOTE | 2022-05-23 12:39 | CA ---
Transthoracic Echo Report Name: Gurwinder Toribio Age: 61 Gender: M : 1960 Exam Date: 05/23/2022 08:20 Exam Location: [place] [facility] Ht (in): 73 Wt (lb): 242 Ordering Physician: Berlin Ray DO Attending/Referring Phys: [id number], Flor Junior Programmer Analyst Fely Castillo RDCS Procedure CPT: Indications: chf Cardiac Hx: Technical Quality: Good Contrast 1: Total Dose (mL): Contrast 2: Total Dose (mL): MEASUREMENTS (Male / Female) Normal Values 2D ECHO LV Diastolic Diameter PLAX 3.6 cm 4.2 - 5.9 / 3.9 - 5.3 cm LV Systolic Diameter PLAX 2.4 cm IVS Diastolic Thickness 1.2 cm 0.6 - 1.0 / 0.6 - 0.9 cm LVPW Diastolic Thickness 1.8 cm 0.6 - 1.0 / 0.6 - 0.9 cm LV Relative Wall Thickness 0.8 RV Internal Dim ED PLAX 3.3 cm DOPPLER TR Peak Velocity 171.8 cm/s TR Peak Gradient 11.8 mmHg Right Ventricular Systolic Press 16.8 mmHg FINDINGS Left Ventricle Mildly increased septal wall thickness. Left ventricular ejection fraction is estimated at 55-60%. Right Ventricle Normal right ventricular size and function. Right ventricular systolic pressure within normal limits. Right Atrium Left Atrium Mitral Valve Trace mitral regurgitation Aortic Valve Tricuspid Valve Pulmonic Valve Pericardium No pericardial effusion. Aorta CONCLUSIONS Mild LVH Normal left ventricular EF 55-60% Trace mitral regurgitation No pericardial effusion Previewed by: Dr. John Cabral DO (Electronically Signed) Final Date: 23 May 2022 12:38
[2022-05-23] MEDS: MAGNESIUM SULFATE-D5W PMX 1 GM in DEXTROSE/WATER 1 100ML.BAG IVPB SCH ×2 (14:24→16:02)
--- NOTE | 2022-05-24 02:23 | P.HPIM ---
History of Present Illness H&P Date: 05/23/22 Chief Complaint: alcohol intoxication Patient is a 61-year-old male with a known history of Paroxysmal Atrial fibrillation, COPD, DVT, GERD, alcoholic hepatitis and hepatic steatosis and a chronic encephalopathy, was obstructive sleep apnea on CPAP/BiPAP, chronic low back pain, PVD and chronic venous stasis dermatitis and other multiple medical problems including currently everyday smoker and heavy alcohol use presents to ER with complaints of bilateral lower EXTR swelling. Apparently patient has been drinking alcohol daily and last drink was 2 days ago. Patient was brought in by EMS. EMS reports that he soiled himself after sitting in urine for several hours. Patient is also complaining of leg swelling. No complaints of cough or sputum production. No chest pain. Does have nausea. Laboratory test showed WBC 13.7, hemoglobin 14.8 and platelets 170 Sodium 133 potassium 4.3 chloride 92 bicarb is 20 BUN 21 and creatinine 0.69 and total bilirubin level is 1.4 Urinalysis showed 2+ ketones. Negative for infection. Serum alcohol level is 194 impression Review of Systems Complete review of systems could not be obtained at this time. Past Medical History Past Medical History: Atrial Fibrillation, COPD, Deep Vein Thrombosis (DVT), GERD/Reflux, Liver Disease, Osteoarthritis (OA), Pulmonary Embolus (PE), Sleep Apnea/CPAP/BIPAP, Vascular Disorder Additional Past Medical History / Comment(s): ETOH abuse, alcohol withdrawal/DTs, alcoholic hepatitis, hepatic steatosis, chronic encephalopathy, thrombocytopenia/pancytopenia, 03/2020 fall with brain bleed-transferred from [facility] to [facility]-pt states he still has chronic headaches, chronic low back pain, PVD, chronic venous stasis dermatitis, past DVT R leg and PEs- laterallity unknown, SOB with exertion, LYRIC/no device, bilateral lower leg discolored/edematous. History of Any Multi-Drug Resistant Organisms: MRSA Date of last positivie culture/infection: 2006 MDRO Source:: unk Past Surgical History: Orthopedic Surgery Additional Past Surgical History / Comment(s): Left hand tendon surgery, EGD Past Anesthesia/Blood Transfusion Reactions: No Reported Reaction Past Psychological History: No Psychological Hx Reported Additional Psychological History / Comment(s): Pt currently resides alone. He has a car but no insurance. He gets to [facility] by taxi or friends. Smoking Status: Current every day smoker, Light tobacco smoker Past Alcohol Use History: Abuse, Daily, Heavy Additional Past Alcohol Use History / Comment(s): Pt started smoking in 1985 and is a half ppd smoker. Pt states he drinks about two one fifths of liqour a day Past Drug Use History: None Reported - Past Family History Mother Family Medical History: AFIB Father Family Medical History: Cancer Additional Family Medical History / Comment(s): Pt believes his father passed from lung cancer. He was a smoker. Medications and Allergies Home Medications Medication Instructions Recorded Confirmed Type Thiamine [Vitamin B-1] 100 mg PO BID-W/MEALS #60 tab 11/07/21 05/22/22 Rx Multivitamins, Thera [Multivitamin 1 tab PO DAILY 01/09/22 05/22/22 History (formulary)] Acetaminophen Tab [Tylenol] 650 mg PO Q6HR PRN tab 01/12/22 05/22/22 Rx Magnesium Oxide [Mag-Ox] 400 mg PO TID 30 Days #90 tab 01/12/22 05/22/22 Rx Albuterol Inhaler [Ventolin Hfa 2 puff INHALATION RT-TID PRN 02/26/22 05/22/22 History Inhaler] Famotidine [Pepcid] 20 mg PO BID PRN 02/26/22 05/22/22 History Acamprosate Calcium [Campral] 666 mg PO TID #30 tab 03/31/22 05/22/22 Rx Budesonide-Formot 160-4.5 Mcg 2 puff INHALATION RT-BID 04/07/22 05/22/22 History [Symbicort 160-4.5 Mcg Inhaler] Apixaban [Eliquis] 5 mg PO BID #60 tab 04/11/22 05/22/22 Rx Metoprolol Succinate (ER) [Toprol 100 mg PO DAILY #30 tab 04/11/22 05/22/22 Rx XL] Losartan [Cozaar] 100 mg PO DAILY #10 tab 04/25/22 05/22/22 Rx cloNIDine HCL [Catapres] 0.2 mg PO TID #90 tab 05/04/22 05/22/22 Rx Allergies Allergy/AdvReac Type Severity Reaction Status Date / Time Penicillins Allergy Mild Rash/Hives Verified 05/22/22 22:17 Physical Exam Vitals: Vital Signs Temp Pulse Pulse Resp BP BP Pulse Ox 05/23/22 09:03 18 05/23/22 07:00 98.6 F 84 18 144/86 93 L 05/23/22 01:42 16 05/23/22 00:40 98.3 F 102 H 18 129/82 94 L 05/22/22 22:52 98.9 F 96 16 123/71 96 05/22/22 18:52 97.6 F 113 H 20 122/72 96 Intake and Output 05/22/22 05/23/22 05/23/22 22:59 06:59 14:59 Intake Total 240 Output Total 150 540 Balance -150 -300 Intake: Oral 240 Output: Urine 150 540 Other: Voiding Method Urinal Weight 110 kg PHYSICAL EXAMINATION: Patient is lying in the bed comfortably, no acute distress, awake alert and oriented.Lethargic and drowsy . HEENT: Normocephalic. Neck is supple. Pupils reactive. Nostrils clear. Oral cavity is moist. Neck reveals no JVD, carotid bruits, or thyromegaly. CHEST EXAMINATION: Trachea is central. Symmetrical expansion. Lung hernandez clear to auscultation and percussion. CARDIAC: Normal S1, S2 with no gallops. No murmurs ABDOMEN: Soft. Bowel sounds present. Nontender. No organomegaly. No abdominal bruits. Extremities: reveal no edema. No clubbing or cyanosis Neurologically awake, alert, oriented x1-2 with well-coordinated movements. No focal deficits noted Skin: No rash or skin lesions. Psychiatric: Coperative. Musculoskeletal: No joint swelling or deformity. Normal range of motion. Results CBC & Chem 7: 05/24/22 05:00 05/24/22 05:00 Labs: Abnormal Lab Results - Last 24 Hours (Table) 05/22/22 05/22/22 05/22/22 Range/Units 20:29 20:55 20:55 WBC 13.7 H (3.8-10.6) k/uL Plt Count (150-450) k/uL Neutrophils # 11.9 H (1.3-7.7) k/uL Lymphocytes # 0.9 L (1.0-4.8) k/uL Sodium 133 L (137-145) mmol/L Chloride 92 L (98-107) mmol/L Carbon Dioxide 20 L (22-30) mmol/L BUN (9-20) mg/dL Glucose (74-99) mg/dL Plasma Lactic Acid Azam (0.7-2.0) mmol/L Calcium (8.4-10.2) mg/dL Phosphorus (2.5-4.5) mg/dL Total Bilirubin 1.4 H (0.2-1.3) mg/dL Total Protein (6.3-8.2) g/dL Urine Ketones 2+ H (Negative) 05/22/22 05/23/22 05/23/22 Range/Units 20:55 00:00 03:41 WBC (3.8-10.6) k/uL Plt Count 139 L (150-450) k/uL Neutrophils # (1.3-7.7) k/uL Lymphocytes # 0.6 L (1.0-4.8) k/uL Sodium (137-145) mmol/L Chloride (98-107) mmol/L Carbon Dioxide (22-30) mmol/L BUN (9-20) mg/dL Glucose (74-99) mg/dL Plasma Lactic Acid Azam 3.3 H* 2.4 H* (0.7-2.0) mmol/L Calcium (8.4-10.2) mg/dL Phosphorus (2.5-4.5) mg/dL Total Bilirubin (0.2-1.3) mg/dL Total Protein (6.3-8.2) g/dL Urine Ketones (Negative) 05/23/22 Range/Units 03:41 WBC (3.8-10.6) k/uL Plt Count (150-450) k/uL Neutrophils # (1.3-7.7) k/uL Lymphocytes # (1.0-4.8) k/uL Sodium 132 L (137-145) mmol/L Chloride 95 L (98-107) mmol/L Carbon Dioxide (22-30) mmol/L BUN 8 L (9-20) mg/dL Glucose 66 L (74-99) mg/dL Plasma Lactic Acid Azam (0.7-2.0) mmol/L Calcium 8.1 L (8.4-10.2) mg/dL Phosphorus 2.1 L (2.5-4.5) mg/dL Total Bilirubin 1.4 H (0.2-1.3) mg/dL Total Protein 6.2 L (6.3-8.2) g/dL Urine Ketones (Negative) Thrombosis Risk Factor Assmnt - DVT/VTE Prophylaxis DVT/VTE Prophylaxis: Pharmacologic Prophylaxis ordered - Choose All That Apply Any of the Below Risk Factors Present?: Yes Each Factor Represents 1 point: Abnormal pulmonary function (COPD), Obesity (BMI >25), Swollen legs (current) Other Risk Factors: No Other congenital or acquired thrombophilia - If yes, enter type in comment: No Thrombosis Risk Factor Assessment Total Risk Factor Score: 3 Thrombosis Risk Factor Assessment Level: Moderate Risk Assessment and Plan Assessment: Acute alcohol intoxication on admission Bilateral lower extremity edema likely dependent edema improving now Lactic acidosis Hypovolemic hyponatremia Mild leukocytosis likely reactive. History of DVT on anticoagulation with Eliquis History of alcohol withdrawal symptoms and DTs History of alcoholic hepatic steatosis Chronic encephalopathy Obstructive sleep apnea on CPAP at home Chronic low back pain and peripheral vascular disease Chronic venous stasis dermatitis Currently everyday smoker and daily alcohol abuse Plan: Patient recommended IV hydration and monitor for alcohol withdrawal symptoms. Continue thiamine folic acid and home medications and follow-up closely. Prognosis is guarded. Time with Patient: Greater than 30
[2022-05-24] MEDS: SODIUM CHLORIDE 0.9% 1,000 ML IV SCH ×2 (05:39→14:02)
[2022-05-24] MEDS: ACETAMINOPHEN TAB 325 MG TAB PO PRN ×2 (06:05→21:19)
[2022-05-24] MEDS: FAMOTIDINE 20 MG TAB PO PRN ×2 (06:05→21:20)
[2022-05-24] MEDS: SYMBICORT 160-4.5 MCG INHALER INHALATION SCH ×2 (06:56→19:28)
[2022-05-24] MEDS: MAGNESIUM OXIDE 400 MG TAB PO SCH ×3 (08:22→21:20)
[2022-05-24] MEDS: THIAMINE 100 MG TAB PO SCH ×2 (08:22→17:08)
[2022-05-24] MEDS: MULTIVITAMINS, THERA 1 EACH TAB PO SCH (08:22)
[2022-05-24] MEDS: APIXABAN 5 MG TAB PO SCH ×2 (08:23→21:19)
[2022-05-24] MEDS: METOPROLOL SUCCINATE (ER) 100 MG TAB.ER.24H PO SCH (08:23)
[2022-05-24 09:06] LABS: Basophils # (A) 0.01 X 10*3/uL (0.00-0.10); Basophils % (A) 0.2 %; Eosinophils # (A) 0.02 X 10*3/uL (0.04-0.35); Eosinophils % (A) 0.5 %; HCT 40.3 % (39.6-50.0); HGB 13.6 g/dL (13.0-17.0); Immature Grans, Automated 0.2 %; Lymphocytes # (A) 0.72 X 10*3/uL (0.90-5.00); Lymphocytes % (A) 17.9 %; MCH 32.2 pg (27.0-32.0); MCHC 33.7 g/dL (32.0-37.0); MCV 95.3 fL (80.0-97.0); Mean Platelet Volume 10.9 fL (9.5-12.2); NRBC Per 100 WBC 0 /100 WBCS (0.0-0.0); Neutrophils # (A) 2.86 X 10*3/uL (1.80-7.70); Neutrophils % (A) 71.2 %; Platelet Count 114 X 10*3/uL (140-440); RBC 4.23 X 10*6/uL (4.40-5.60); RDW 13.9 % (11.5-14.5); WBC 4.02 X 10*3/uL (4.50-10.00)
[2022-05-24 09:19] LABS: African American GFR (CKD) 118.9 (60.0-200.0); Albumin 3.7 g/dL (3.8-4.9); Albumin/Globulin Ratio 1.76 (1.60-3.17); BUN/Creat Ratio 14.14 Ratio (12.00-20.00); Blood Urea Nitrogen 9.9 mg/dL (9.0-27.0); Calcium 8.5 mg/dL (8.7-10.3); Globulin 2.1 g/dL (1.6-3.3); Non-African American GFR(CKD) 102.6 (60.0-200.0); Potassium 3.6 mmol/L (3.5-5.5); Total Bilirubin 1.2 mg/dL (0.30-1.20); Total Protein 5.8 g/dL (6.2-8.2)
--- NOTE | 2022-05-24 20:00 | P.PN ---
Subjective Progress Note Date: 05/24/22 Patient is a 61-year-old male with a known history of Paroxysmal Atrial fibrillation, COPD, DVT, GERD, alcoholic hepatitis and hepatic steatosis and a chronic encephalopathy, was obstructive sleep apnea on CPAP/BiPAP, chronic low back pain, PVD and chronic venous stasis dermatitis and other multiple medic al problems including currently everyday smoker and heavy alcohol use presents to ER with complaints of bilateral lower EXTR swelling. Apparently patient has been drinking alcohol daily and last drink was 2 days ago. Patient was brought in by EMS. EMS reports that he soiled himself after sitting in urine for several hours. Patient is also complaining of leg swelling. No complaints of cough or sputum production. No chest pain. Does have nausea. Laboratory test showed WBC 13.7, hemoglobin 14.8 and platelets 170 Sodium 133 potassium 4.3 chloride 92 bicarb is 20 BUN 21 and creatinine 0.69 and total bilirubin level is 1.4 Urinalysis showed 2+ ketones. Negative for infection. Serum alcohol level is 194 on admission 05/24/2022 Patient is more awake alert and oriented x3. No complaints of chest pain or shortness of breath. Patient feels very weak. Able to tolerate oral Dilusol. Bilateral lower extremity swelling is almost resolved. No complaints of chest pain or shortness of. No fever no chills. No headache or dizziness or lightheadedness. continued on ETOH withdrawl protocol Laboratory data showed WBC 4.0 hemoglobin 13.6 and platelets 114 Sodium 133 potassium 3.6 chloride 96 bicarb is 28 BUN 9.9 and creatinine 0.7 calcium 8.5 lipase level is 92 and lactic acid came down to 1.7. Current medications reviewed. Objective - Vital Signs Vital signs: Vital Signs Temp 98.9 F 05/24/22 15:00 Pulse 66 05/24/22 15:00 Resp 18 05/24/22 19:01 BP 125/81 05/24/22 15:00 Pulse Ox 94 L 05/24/22 15:00 FiO2 Intake & Output 05/24/22 05/24/22 05/25/22 06:59 18:59 06:59 Intake Total 240 Output Total 875 820 Balance -875 -580 Intake: Oral 240 Output: Urine 875 820 Other: Voiding Method Urinal # Voids 1 # Bowel Movements 1 - Exam PHYSICAL EXAMINATION: Patient is lying in the bed comfortably, no acute distress, awake alert and oriented.. HEENT: Normocephalic. Neck is supple. Pupils reactive. Nostrils clear. Oral cavity is moist. Neck reveals no JVD, carotid bruits, or thyromegaly. CHEST EXAMINATION: Trachea is central. Symmetrical expansion. Lung hernandez clear to auscultation and percussion. CARDIAC: Normal S1, S2 with no gallops. No murmurs ABDOMEN: Soft. Bowel sounds present. Nontender. No organomegaly. No abdominal bruits. Extremities: reveal no edema. No clubbing or cyanosis Neurologically awake, alert, oriented x3 with well-coordinated movements. No focal deficits noted Skin: No rash or skin lesions. Psychiatric: Coperative. Nonsuicidal, Musculoskeletal: No joint swelling or deformity. Normal range of motion. - Labs CBC & Chem 7: 05/24/22 05:00 05/24/22 05:00 Labs: Abnormal Lab Results - Last 24 Hours (Table) 05/24/22 05/24/22 Range/Units 05:00 05:00 WBC 4.02 L (4.50-10.00) X 10*3/uL RBC 4.23 L (4.40-5.60) X 10*6/uL MCH 32.2 H (27.0-32.0) pg Plt Count 114 L (140-440) X 10*3/uL Lymphocytes # 0.72 L (0.90-5.00) X 10*3/uL Eosinophils # 0.02 L (0.04-0.35) X 10*3/uL Sodium 133 L (135-145) mmol/L Carbon Dioxide 28.0 H (20.0-27.5) mmol/L Anion Gap 9.00 L (10.00-18.00) mmol/L Calcium 8.5 L (8.7-10.3) mg/dL AST 52 H (14-35) U/L Total Protein 5.8 L (6.2-8.2) g/dL Albumin 3.7 L (3.8-4.9) g/dL Assessment and Plan Assessment: Acute alcohol intoxication on admission Bilateral lower extremity edema likely dependent edema improving now Lactic acidosis Hypovolemic hyponatremia Mild leukocytosis likely reactive. History of DVT on anticoagulation with Eliquis History of alcohol withdrawal symptoms and DTs History of alcoholic hepatic steatosis Chronic encephalopathy Obstructive sleep apnea on CPAP at home Chronic low back pain and peripheral vascular disease Chronic venous stasis dermatitis Currently everyday smoker and daily alcohol abuse Plan: Patient recommended IV hydration and monitor for alcohol withdrawal symptoms. Continue thiamine folic acid and home medications and follow-up closely. Prognosis is guarded. Time with Patient: Greater than 30
[2022-05-25] MEDS: SODIUM CHLORIDE 0.9% 1,000 ML IV SCH ×2 (05:26→16:02)
[2022-05-25] MEDS: SYMBICORT 160-4.5 MCG INHALER INHALATION SCH ×2 (08:07→20:21)
[2022-05-25] MEDS: APIXABAN 5 MG TAB PO SCH ×2 (08:29→20:23)
[2022-05-25] MEDS: METOPROLOL SUCCINATE (ER) 100 MG TAB.ER.24H PO SCH (08:29)
[2022-05-25] MEDS: MAGNESIUM OXIDE 400 MG TAB PO SCH ×3 (08:30→20:23)
[2022-05-25] MEDS: MULTIVITAMINS, THERA 1 EACH TAB PO SCH (08:30)
[2022-05-25] MEDS: ACETAMINOPHEN TAB 325 MG TAB PO PRN ×2 (08:30→16:02)
[2022-05-25] MEDS: THIAMINE 100 MG TAB PO SCH ×2 (08:30→16:02)
[2022-05-25 09:37] LABS: Basophils # (A) 0.02 X 10*3/uL (0.00-0.10); Basophils % (A) 0.5 %; Eosinophils # (A) 0.03 X 10*3/uL (0.04-0.35); Eosinophils % (A) 0.8 %; HGB 14.5 g/dL (13.0-17.0); Immature Grans, Automated 0.3 %; Lymphocytes # (A) 0.77 X 10*3/uL (0.90-5.00); Lymphocytes % (A) 19.4 %; MCH 32.2 pg (27.0-32.0); MCHC 33.7 g/dL (32.0-37.0); MCV 95.6 fL (80.0-97.0); Mean Platelet Volume 11.5 fL (9.5-12.2); Monocytes # (A) 0.39 X 10*3/uL (0.20-1.00); Monocytes % (A) 9.8 %; NRBC Per 100 WBC 0 /100 WBCS (0.0-0.0); Neutrophils # (A) 2.74 X 10*3/uL (1.80-7.70); Neutrophils % (A) 69.2 %; Platelet Count 116 X 10*3/uL (140-440); RDW 13.6 % (11.5-14.5); WBC 3.96 X 10*3/uL (4.50-10.00)
[2022-05-25 09:52] LABS: African American GFR (CKD) 118.9 (60.0-200.0); Anion Gap 11.3 mmol/L (10.00-18.00); BUN/Creat Ratio 11.86 Ratio (12.00-20.00); Blood Urea Nitrogen 8.3 mg/dL (9.0-27.0); Calcium 8.9 mg/dL (8.7-10.3); Carbon Dioxide 23.7 mmol/L (20.0-27.5); Non-African American GFR(CKD) 102.6 (60.0-200.0)
[2022-05-26] MEDS: SODIUM CHLORIDE 0.9% 1,000 ML IV SCH (04:53)
[2022-05-26] MEDS: SYMBICORT 160-4.5 MCG INHALER INHALATION SCH ×2 (08:52→19:54)
[2022-05-26] MEDS: THIAMINE 100 MG TAB PO SCH ×2 (09:01→16:56)
[2022-05-26] MEDS: METOPROLOL SUCCINATE (ER) 100 MG TAB.ER.24H PO SCH (10:01)
[2022-05-26] MEDS: MAGNESIUM OXIDE 400 MG TAB PO SCH ×3 (10:01→20:52)
[2022-05-26] MEDS: APIXABAN 5 MG TAB PO SCH ×2 (10:02→20:52)
[2022-05-26] MEDS: ONDANSETRON 4 MG/2 ML VIAL IVP PRN (10:02)
[2022-05-26] MEDS: MULTIVITAMINS, THERA 1 EACH TAB PO SCH (10:02)
[2022-05-26] MEDS: ACETAMINOPHEN TAB 325 MG TAB PO PRN (12:54)
--- NOTE | 2022-05-26 15:09 | US ---
EXAMINATION TYPE: US venous doppler duplex LE DATE OF EXAM: 05/26/2022 2:53 PM COMPARISON: NONE CLINICAL HISTORY: edema with hx of DVTs. Hx DVT, PE. Patient is on eliquis. SIDE PERFORMED: Bilateral TECHNIQUE: The lower extremity deep venous system is examined utilizing real time linear array sonog mateo with graded compression, doppler sonography and color-flow sonography. VESSELS IMAGED: Common Femoral Vein Deep Femoral Vein Greater Saphenous Vein * Femoral Vein Popliteal Vein Small Saphenous Vein * Proximal Calf Veins (* superficial vessels) Right Leg: Internal echoes seen within femoral vein. Duplicate femoral vein noted. Thready flow note d. Lack of color flow seen within distal. One of two mid femoral veins does not compress. Duplicate d istal femoral veins do not compress. Echoes noted within noncompressible popliteal vein. Left Leg: Internal echoes and color defect seen within distal popliteal vein. Distal popliteal vein does not compress. Limited visibility of prox calf veins. IMPRESSION: Findings compatible with DVT as noted above.
[2022-05-26 18:24] LABS: Basophils # (A) 0.01 X 10*3/uL (0.00-0.10); Basophils % (A) 0.2 %; Eosinophils # (A) 0.09 X 10*3/uL (0.04-0.35); Eosinophils % (A) 1.7 %; HCT 44.6 % (39.6-50.0); HGB 15.2 g/dL (13.0-17.0); Immature Grans, Automated 0.4 %; Lymphocytes # (A) 1.21 X 10*3/uL (0.90-5.00); Lymphocytes % (A) 23.4 %; MCH 32.7 pg (27.0-32.0); MCHC 34.1 g/dL (32.0-37.0); MCV 95.9 fL (80.0-97.0); Mean Platelet Volume 11.9 fL (9.5-12.2); Monocytes # (A) 0.47 X 10*3/uL (0.20-1.00); Monocytes % (A) 9.1 %; NRBC Per 100 WBC 0 /100 WBCS (0.0-0.0); Neutrophils # (A) 3.38 X 10*3/uL (1.80-7.70); Neutrophils % (A) 65.2 %; Platelet Count 119 X 10*3/uL (140-440); RBC 4.65 X 10*6/uL (4.40-5.60); RDW 13.9 % (11.5-14.5); WBC 5.18 X 10*3/uL (4.50-10.00)
[2022-05-26 19:28] LABS: African American GFR (CKD) 118.5 (60.0-200.0); Albumin 4.1 g/dL (3.8-4.9); Albumin/Globulin Ratio 1.76 (1.60-3.17); Anion Gap 11.2 mmol/L (10.00-18.00); BUN/Creat Ratio 12.34 Ratio (12.00-20.00); Blood Urea Nitrogen 8.7 mg/dL (9.0-27.0); Calcium 9.1 mg/dL (8.7-10.3); Carbon Dioxide 22.8 mmol/L (20.0-27.5); Globulin 2.3 g/dL (1.6-3.3); Non-African American GFR(CKD) 102.3 (60.0-200.0); Total Bilirubin 0.8 mg/dL (0.30-1.20); Total Protein 6.4 g/dL (6.2-8.2)
[2022-05-27] MEDS: SODIUM CHLORIDE 0.9% 1,000 ML IV SCH (07:12)
[2022-05-27] MEDS: SYMBICORT 160-4.5 MCG INHALER INHALATION SCH (07:18)
[2022-05-27 07:20] VITALS: RESP 15
[2022-05-27] MEDS: APIXABAN 5 MG TAB PO SCH (08:36)
[2022-05-27] MEDS: THIAMINE 100 MG TAB PO SCH (08:36)
[2022-05-27] MEDS: MAGNESIUM OXIDE 400 MG TAB PO SCH (08:36)
[2022-05-27] MEDS: MULTIVITAMINS, THERA 1 EACH TAB PO SCH (08:36)
[2022-05-27] MEDS: METOPROLOL SUCCINATE (ER) 100 MG TAB.ER.24H PO SCH (08:36)
[2022-05-27 11:46] VITALS: BP 129/83; PULSE 57; TEMP 98.2
--- NOTE | 2022-05-27 13:31 | XR ---
EXAMINATION TYPE: XR abdomen 1V DATE OF EXAM: 05/27/2022 COMPARISON: NONE HISTORY: Pain TECHNIQUE: One view abdominal series FINDINGS: The osseous structures are intact. The bowel gas pattern is nonspecific. Hypertrophic degenerative c hanges of the spine. Calcifications in the pelvis likely vascular. Arthropathy of the hips. IMPRESSION: 1. Nonspecific abdomen.
--- NOTE | 2022-05-27 19:26 | PN ---
PROGRESS NOTE CHIEF COMPLAINT: Lower extremity edema and alcoholism. HISTORY OF PRESENT ILLNESS: This gentleman is having nausea and some episodes of vomiting. His lower extremity edema is improving. DVT has not been ruled out. He has a history of DVTs. PHYSICAL EXAMINATION: CHEST: Clear. CARDIAC: Normal. ABDOMEN: Protuberant. LOWER EXTREMITIES: Still somewhat edematous at 2 to 3+. Calves are soft, and Homans signs are negative. IMPRESSION: 1. Lower extremity edema. 2. Alcoholism. 3. Nausea. 4. Possible anasarca related to alcoholic liver disease. PLAN: 1. D-dimer. 2. Doppler of lower extremities. 3. Lipase. 4. Ammonia level. MMODL / IJN: [id number] /
--- NOTE | 2022-05-28 07:48 | PN ---
PROGRESS NOTE CHIEF COMPLAINT: Bilateral edema, alcoholism, and DTs. HISTORY OF PRESENT ILLNESS: This gentleman is doing fairly well. He is not having any difficulty with DTs right now. He still has quite a bit of swelling in lower extremities. He will be assessed for DVT. He also has some abdominal distention, and this may be related to cirrhosis. PHYSICAL EXAMINATION: CHEST: Clear. CARDIAC: Normal. ABDOMEN: Protuberant and nontender. It is difficult to tell if there is a fluid wave. EXTREMITIES: Normal except for the moderate edema. IMPRESSION: 1. Lower extremity edema. 2. History of deep venous thrombosis. 3. Chronic alcoholism. PLAN: Continue to look into the etiology of his lower extremity edema, which is improving slightly. MMODL / IJN: [id number] /
--- NOTE | 2022-05-29 08:52 | DS ---
DISCHARGE SUMMARY CHIEF COMPLAINT: Acute alcohol intoxication, DTs, and edema. HISTORY OF PRESENT ILLNESS AND PHYSICAL EXAMINATION: Details of this man's history and physical can be found in the initial workup. LABORATORY STUDIES: While he is in the hospital, he had laboratory studies, details of which can be found on the laboratory section of his chart. COURSE IN THE HOSPITAL: After admission, he was placed on bedrest, started on fluids and treated for DTs. The edema in the lower extremities was evaluated by Doppler, which demonstrated bilateral thrombotic disease consistent with his past history of phlebothrombosis of lower extremities. He is on anticoagulants. He was felt to be stable and could be discharged on the and will be followed up in the office. FINAL DIAGNOSES: 1. Acute alcohol intoxication. 2. Delirium tremens. 3. Chronic alcoholism. 4. History of chronic deep vein thrombosis lower extremities. 5. Cirrhosis. OPERATIONS: None. CONSULTATIONS: None, he is improved. HARPER / MARITZA: [id number] /
== END 2022-05-27 16:50 | disposition home or self-care (01) | DRG 897 ==
LOC: EC 18:43 → 6NMEDSUR 22:03 → OBSVTOIN 05-26 12:57
PROVIDERS: ADMIT Family Medicine; ATTEND Family Medicine
DX: F10.229 Alcohol dependence with intoxication, unspecified (principal); G93.49 Other encephalopathy; E87.1 Hypo-osmolality and hyponatremia; E87.2 Acidosis; M79.89 Other specified soft tissue disorders; F10.231 Alcohol dependence with withdrawal delirium; K70.10 Alcoholic hepatitis without ascites; K76.0 Fatty (change of) liver, not elsewhere classified; J44.9 Chronic obstructive pulmonary disease, unspecified; I73.9 Peripheral vascular disease, unspecified; K70.30 Alcoholic cirrhosis of liver without ascites; I48.91 Unspecified atrial fibrillation; E86.0 Dehydration; D72.829 Elevated white blood cell count, unspecified; R60.0 Localized edema; F17.210 Nicotine dependence, cigarettes, uncomplicated; M19.90 Unspecified osteoarthritis, unspecified site; G47.33 Obstructive sleep apnea (adult) (pediatric); G89.29 Other chronic pain; I87.2 Venous insufficiency (chronic) (peripheral); E86.1 Hypovolemia; K21.9 Gastro-esophageal reflux disease without esophagitis; R60.1 Generalized edema; Y90.6 Blood alcohol level of 120-199 mg/100 ml; Z79.899 Other long term (current) drug therapy; Z79.51 Long term (current) use of inhaled steroids; Z79.01 Long term (current) use of anticoagulants; Z88.0 Allergy status to penicillin; Z86.711 Personal history of pulmonary embolism; Z86.718 Personal history of other venous thrombosis and embolism; Z86.14 Personal history of Methicillin resistant Staphylococcus aureus infection; Z87.820 Personal history of traumatic brain injury; Z80.1 Family history of malignant neoplasm of trachea, bronchus and lung; Z81.2 Family history of tobacco abuse and dependence
CPT/HCPCS: 36415; 71045; 74018; 80048; 80053; 80320; 81003; 82140; 83605; 83690; 83735; 84100; 85025; 85610; 85730; 93005; 93308; 93970; 94640; 96372; 96374; 96375; 96376; 99285

== ENCOUNTER 2022-06-07 07:06 | Emergency (ER) | payer OTHER ==
--- NOTE | 2022-06-07 07:27 | ED ---
General Adult HPI - General Stated complaint: Difficulty Breathing Time Seen by Provider: 06/07/22 07:06 Source: patient, RN notes reviewed, old records reviewed - History of Present Illness Initial comments: This is a 61-year-old male with past medical history significant for COPD and chronic edema to the legs. Patient comes in today stating said difficulty breathing since yesterday. Patient states he has a mild cough but no production. Patient denies any chest pain or palpitation. Patient denies any fever chills. Patient denies any abdominal pain patient diarrhea. Patient denies lightheadedness or dizziness. Patient denies any recent injury or trauma. Patient states the swelling of the legs is normal does not any worsened normal. - Related Data Home Medications Medication Instructions Recorded Confirmed Multivitamins, Thera [Multivitamin 1 tab PO DAILY 01/09/22 05/22/22 (formulary)] Albuterol Inhaler [Ventolin Hfa 2 puff INHALATION RT-TID PRN 02/26/22 05/22/22 Inhaler] Famotidine [Pepcid] 20 mg PO BID PRN 02/26/22 05/22/22 Budesonide-Formot 160-4.5 Mcg 2 puff INHALATION RT-BID 04/07/22 05/22/22 [Symbicort 160-4.5 Mcg Inhaler] Previous Rx's Medication Instructions Recorded Thiamine [Vitamin B-1] 100 mg PO BID-W/MEALS #60 tab 11/07/21 Acetaminophen Tab [Tylenol] 650 mg PO Q6HR PRN tab 01/12/22 Magnesium Oxide [Mag-Ox] 400 mg PO TID 30 Days #90 tab 01/12/22 Acamprosate Calcium [Campral] 666 mg PO TID #30 tab 03/31/22 Apixaban [Eliquis] 5 mg PO BID #60 tab 04/11/22 Metoprolol Succinate (ER) [Toprol 100 mg PO DAILY #30 tab 04/11/22 XL] Losartan [Cozaar] 100 mg PO DAILY #10 tab 04/25/22 cloNIDine HCL [Catapres] 0.2 mg PO TID #90 tab 05/04/22 Allergies Allergy/AdvReac Type Severity Reaction Status Date / Time Penicillins Allergy Mild Rash/Hives Verified 06/07/22 07:51 Review of Systems ROS Statement: Those systems with pertinent positive or pertinent negative responses have been documented in the HPI. ROS Other: All systems not noted in ROS Statement are negative. Past Medical History Past Medical History: Atrial Fibrillation, COPD, Deep Vein Thrombosis (DVT), GERD/Reflux, Liver Disease, Osteoarthritis (OA), Pulmonary Embolus (PE), Sleep Apnea/CPAP/BIPAP, Vascular Disorder Additional Past Medical History / Comment(s): ETOH abuse, alcohol withdrawal/DTs, alcoholic hepatitis, hepatic steatosis, chronic encephalopathy, thrombocytopenia/pancytopenia, 03/2020 fall with brain bleed-transferred from [facility] to [facility]-pt states he still has chronic headaches, chronic low back pain, PVD, chronic venous stasis dermatitis, past DVT R leg and PEs- laterallity unknown, SOB with exertion, LYRIC/no device, bilateral lower leg discolored/edematous. History of Any Multi-Drug Resistant Organisms: MRSA Date of last positivie culture/infection: 2006 MDRO Source:: unk Past Surgical History: Orthopedic Surgery Additional Past Surgical History / Comment(s): Left hand tendon surgery, EGD Past Anesthesia/Blood Transfusion Reactions: No Reported Reaction Past Psychological History: No Psychological Hx Reported Additional Psychological History / Comment(s): Pt currently resides alone. He has a car but no insurance. He gets to [facility] by taxi or friends. Smoking Status: Current every day smoker, Light tobacco smoker Past Alcohol Use History: Abuse, Daily, Heavy Additional Past Alcohol Use History / Comment(s): Pt started smoking in 1985 and is a half ppd smoker. Pt states he drinks about two one fifths of liqour a day Past Drug Use History: None Reported - Past Family History Mother Family Medical History: AFIB Father Family Medical History: Cancer Additional Family Medical History / Comment(s): Pt believes his father passed from lung cancer. He was a smoker. General Exam - General Exam Comments Initial Comments: GENERAL: Patient is well-developed and well-nourished. Patient is nontoxic and well- hydrated and is in no acute distress. ENT: Neck is soft and supple. No significant lymphadenopathy is noted. Oropharynx is clear. Moist mucous membranes. Neck has full range of motion without eliciting any pain. EYES: The sclera were anicteric and conjunctiva were pink and moist. Extraocular movements were intact and pupils were equal round and reactive to light. Eyelids were unremarkable. PULMONARY: Unlabored respirations. Good breath sounds bilaterally. No audible rales rhonchi or wheezing was noted. CARDIOVASCULAR: There is a regular rate and rhythm without any murmurs gallops or rubs. ABDOMEN: Soft and nontender with normal bowel sounds. SKIN: Skin is clear with no lesions or rashes and otherwise unremarkable. NEUROLOGIC: Patient is alert and oriented x3. Cranial nerves II through XII are grossly intact. Motor and sensory are also intact. Normal speech, volume and content. Symmetrical smile. MUSCULOSKELETAL: Normal extremities with adequate strength and full range of motion. 2+ edema bilaterally LYMPHATICS: No significant lymphadenopathy is noted PSYCHIATRIC: Normal psychiatric evaluation. Course Vital Signs 06/07/22 07:10 Temperature 97.9 F Pulse Rate 103 H Respiratory 16 Rate Blood Pressure 149/102 O2 Sat by Pulse 96 Oximetry Medical Decision Making - Medical Decision Making EKG shows sinus rhythm at 87 bpm LA interval 150 QRS is under QT interval 360 QTC is 412. Patient's EKG shows no ST segment or depression. Chest x-ray shows no acute abnormality. I went back in and reexamined the patient he was oxygenating between 96-97% with room air. Patient was able to talk in full sentences he stated that he was feeling better even though he had received no treatments in the emergency department. Patient states he does continue to smoke and drink on a daily basis. Patient states currently he feels back to his baseline he is not short of breath and would like to be discharged home. - Lab Data Result diagrams: 06/07/22 07:32 06/07/22 07:32 Lab Results 06/07/22 06/07/22 06/07/22 Range/Units 07:32 07:32 07:32 WBC 2.8 L (3.8-10.6) k/uL RBC 4.68 (4.30-5.90) m/uL Hgb 14.7 (13.0-17.5) gm/dL Hct 44.8 (39.0-53.0) % MCV 95.8 (80.0-100.0) fL MCH 31.4 (25.0-35.0) pg MCHC 32.8 (31.0-37.0) g/dL RDW 14.2 (11.5-15.5) % Plt Count 178 (150-450) k/uL MPV 7.7 Neutrophils % 60 % Lymphocytes % 31 % Monocytes % 4 % Eosinophils % 1 % Basophils % 1 % Neutrophils # 1.7 (1.3-7.7) k/uL Lymphocytes # 0.9 L (1.0-4.8) k/uL Monocytes # 0.1 (0-1.0) k/uL Eosinophils # 0.0 (0-0.7) k/uL Basophils # 0.0 (0-0.2) k/uL Sodium 140 (137-145) mmol/L Potassium 4.1 (3.5-5.1) mmol/L Chloride 100 (98-107) mmol/L Carbon Dioxide 22 (22-30) mmol/L Anion Gap 18 mmol/L BUN 9 (9-20) mg/dL Creatinine 0.73 (0.66-1.25) mg/dL Est GFR (CKD-EPI)AfAm >90 (>60 ml/min/1.73 sqM) Est GFR (CKD-EPI)NonAf >90 (>60 ml/min/1.73 sqM) Glucose 95 (74-99) mg/dL Calcium 8.2 L (8.4-10.2) mg/dL Magnesium 1.7 (1.6-2.3) mg/dL Total Bilirubin 0.9 (0.2-1.3) mg/dL AST 57 (17-59) U/L ALT 52 H (4-49) U/L Alkaline Phosphatase 86 (38-126) U/L Troponin I <0.012 (0.000-0.034) ng/mL NT-Pro-B Natriuret Pep pg/mL Total Protein 6.8 (6.3-8.2) g/dL Albumin 4.5 (3.5-5.0) g/dL 06/07/22 Range/Units 07:32 WBC (3.8-10.6) k/uL RBC (4.30-5.90) m/uL Hgb (13.0-17.5) gm/dL Hct (39.0-53.0) % MCV (80.0-100.0) fL MCH (25.0-35.0) pg MCHC (31.0-37.0) g/dL RDW (11.5-15.5) % Plt Count (150-450) k/uL MPV Neutrophils % % Lymphocytes % % Monocytes % % Eosinophils % % Basophils % % Neutrophils # (1.3-7.7) k/uL Lymphocytes # (1.0-4.8) k/uL Monocytes # (0-1.0) k/uL Eosinophils # (0-0.7) k/uL Basophils # (0-0.2) k/uL Sodium (137-145) mmol/L Potassium (3.5-5.1) mmol/L Chloride (98-107) mmol/L Carbon Dioxide (22-30) mmol/L Anion Gap mmol/L BUN (9-20) mg/dL Creatinine (0.66-1.25) mg/dL Est GFR (CKD-EPI)AfAm (>60 ml/min/1.73 sqM) Est GFR (CKD-EPI)NonAf (>60 ml/min/1.73 sqM) Glucose (74-99) mg/dL Calcium (8.4-10.2) mg/dL Magnesium (1.6-2.3) mg/dL Total Bilirubin (0.2-1.3) mg/dL AST (17-59) U/L ALT (4-49) U/L Alkaline Phosphatase (38-126) U/L Troponin I (0.000-0.034) ng/mL NT-Pro-B Natriuret Pep 29 pg/mL Total Protein (6.3-8.2) g/dL Albumin (3.5-5.0) g/dL Disposition Clinical Impression: Dyspnea Disposition: HOME SELF-CARE Condition: Good Instructions (If sedation given, give patient instructions): Dyspnea (ED) Is patient prescribed a controlled substance at d/c from ED?: No Referrals: Hernan Gonzales MD [Primary Care Provider] - 1-2 days Time of Disposition: 08:37
[2022-06-07 07:44] LABS: Basophils % (A) 1 %; Eosinophils % (A) 1 %; HCT 44.8 % (39.0-53.0); HGB 14.7 gm/dL (13.0-17.5); Lymphocytes # (A) 0.9 k/uL (1.0-4.8); Lymphocytes % (A) 31 %; MCH 31.4 pg (25.0-35.0); MCHC 32.8 g/dL (31.0-37.0); MCV 95.8 fL (80.0-100.0); Mean Platelet Volume 7.7; Monocytes # (A) 0.1 k/uL (0-1.0); Monocytes % (A) 4 %; Neutrophils # (A) 1.7 k/uL (1.3-7.7); Neutrophils % (A) 60 %; Platelet Count 178 k/uL (150-450); RBC 4.68 m/uL (4.30-5.90); RDW 14.2 % (11.5-15.5); WBC 2.8 k/uL (3.8-10.6)
[2022-06-07 07:51] VITALS: TEMP 97.9
[2022-06-07 07:58] LABS: ALT 52 U/L (4-49); AST 57 U/L (17-59); African American GFR (CKD) >90 (>60 ml/min/1.73 sqM); Albumin 4.5 g/dL (3.5-5.0); Alkaline Phosphatase 86 U/L (38-126); Anion Gap 18 mmol/L; Blood Urea Nitrogen 9 mg/dL (9-20); Calcium 8.2 mg/dL (8.4-10.2); Carbon Dioxide 22 mmol/L (22-30); Chloride 100 mmol/L (98-107); Glucose 95 mg/dL (74-99); Magnesium 1.7 mg/dL (1.6-2.3); Non-African American GFR(CKD) >90 (>60 ml/min/1.73 sqM); Potassium 4.1 mmol/L (3.5-5.1); Sodium 140 mmol/L (137-145); Total Bilirubin 0.9 mg/dL (0.2-1.3); Total Protein 6.8 g/dL (6.3-8.2)
--- NOTE | 2022-06-07 08:03 | XR ---
EXAMINATION TYPE: XR chest 2V DATE OF EXAM: 06/07/2022 HISTORY: Shortness of breath. COMPARISON: 05/22/2022 TECHNIQUE: Single view of the chest is submitted. FINDINGS: Demonstrated are scattered senescent parenchymal change. There is no evidence for focal infiltrate. The heart is stable. Hilar and mediastinal structures are within normal limits. Degenerative changes are seen of the dorsal spine. IMPRESSION: 1. Chronic changes without evidence for acute pulmonary disease.
[2022-06-07 18:03] VITALS: BP 144/99; PULSE 86; RESP 22
== END 2022-06-07 09:15 | disposition home or self-care (01) ==
LOC: EC 07:06
DX: R06.02 Shortness of breath (principal); J44.9 Chronic obstructive pulmonary disease, unspecified; Z88.0 Allergy status to penicillin; I48.91 Unspecified atrial fibrillation; F17.200 Nicotine dependence, unspecified, uncomplicated; Z79.51 Long term (current) use of inhaled steroids
CPT/HCPCS: 36415; 71046; 80053; 83735; 83880; 84484; 85025; 93005; 99285

== ENCOUNTER 2022-06-07 23:19 | Inpatient (IN) | payer OTHER ==
[2022-06-08] LABS: Basophils # (A) 0.1 k/uL (0-0.2); Basophils % (A) 2 %; Eosinophils # (A) 0.1 k/uL (0-0.7); Eosinophils % (A) 2 %; HCT 48.8 % (39.0-53.0); HGB 15.6 gm/dL (13.0-17.5); Lymphocytes # (A) 1.2 k/uL (1.0-4.8); Lymphocytes % (A) 35 %; MCH 31.6 pg (25.0-35.0); MCHC 31.9 g/dL (31.0-37.0); MCV 98.9 fL (80.0-100.0); Monocytes # (A) 0.2 k/uL (0-1.0); Monocytes % (A) 5 %; Neutrophils # (A) 1.8 k/uL (1.3-7.7); Neutrophils % (A) 54 %; Platelet Count 173 k/uL (150-450); RBC 4.93 m/uL (4.30-5.90); RDW 14.3 % (11.5-15.5); WBC 3.3 k/uL (3.8-10.6)
[2022-06-08 00:17] LABS: INR 0.9 (<1.2); Partial Thromboplastin Time 22.9 sec (22.0-30.0); Prothrombin Time 10.1 sec (9.0-12.0)
[2022-06-08 00:27] LABS: ALT 61 U/L (4-49); AST 76 U/L (17-59); African American GFR (CKD) >90 (>60 ml/min/1.73 sqM); Albumin 4.8 g/dL (3.5-5.0); Alkaline Phosphatase 90 U/L (38-126); Anion Gap 20 mmol/L; Blood Urea Nitrogen 7 mg/dL (9-20); Carbon Dioxide 23 mmol/L (22-30); Chloride 100 mmol/L (98-107); Glucose 96 mg/dL (74-99); Non-African American GFR(CKD) >90 (>60 ml/min/1.73 sqM); Potassium 4.2 mmol/L (3.5-5.1); Sodium 143 mmol/L (137-145); Total Protein 7.3 g/dL (6.3-8.2)
--- NOTE | 2022-06-08 00:35 | ED ---
SOB HPI - General Chief Complaint: Shortness of Breath Stated Complaint: EDDIE Time Seen by Provider: 06/07/22 23:25 Source: patient, EMS Mode of arrival: EMS Limitations: no limitations - History of Present Illness Initial Comments: 61-year-old male with past medical history of A. fib, COPD, daily alcohol abuse who presents to the emergency department for shortness of breath and alcohol intoxication. Patient was seen in the emergency room earlier today. States that he went home and drank 2 5th. He felt like he drank too much and was "suffocating". States that he drinks daily. He has been to rehab before and was sober for 11 months however started drinking again. He denies that he drinks due to depression or in an attempt to harm himself. He denies any chest pain. No nausea or vomiting. Remainder of the HPI is limited due to patient's current alcohol intoxication - Related Data Home Medications Medication Instructions Recorded Confirmed Multivitamins, Thera [Multivitamin 1 tab PO DAILY 01/09/22 06/08/22 (formulary)] Albuterol Inhaler [Ventolin Hfa 2 puff INHALATION RT-TID PRN 02/26/22 06/08/22 Inhaler] Famotidine [Pepcid] 20 mg PO BID PRN 02/26/22 06/08/22 Budesonide-Formot 160-4.5 Mcg 2 puff INHALATION RT-BID 04/07/22 06/08/22 [Symbicort 160-4.5 Mcg Inhaler] Previous Rx's Medication Instructions Recorded Thiamine [Vitamin B-1] 100 mg PO BID-W/MEALS #60 tab 11/07/21 Acetaminophen Tab [Tylenol] 650 mg PO Q6HR PRN tab 01/12/22 Magnesium Oxide [Mag-Ox] 400 mg PO TID 30 Days #90 tab 01/12/22 Acamprosate Calcium [Campral] 666 mg PO TID #30 tab 03/31/22 Apixaban [Eliquis] 5 mg PO BID #60 tab 04/11/22 Metoprolol Succinate (ER) [Toprol 100 mg PO DAILY #30 tab 04/11/22 XL] Losartan [Cozaar] 100 mg PO DAILY #10 tab 04/25/22 cloNIDine HCL [Catapres] 0.2 mg PO TID #90 tab 05/04/22 Allergies Allergy/AdvReac Type Severity Reaction Status Date / Time Penicillins Allergy Mild Rash/Hives Verified 06/08/22 07:05 Review of Systems ROS Statement: Those systems with pertinent positive or pertinent negative responses have been documented in the HPI. ROS Other: All systems not noted in ROS Statement are negative. Past Medical History Past Medical History: Atrial Fibrillation, COPD, Deep Vein Thrombosis (DVT), GERD/Reflux, Liver Disease, Osteoarthritis (OA), Pulmonary Embolus (PE), Sleep Apnea/CPAP/BIPAP, Vascular Disorder Additional Past Medical History / Comment(s): ETOH abuse, alcohol withdrawal/DTs, alcoholic hepatitis, hepatic steatosis, chronic encephalopathy, thrombocytopenia/pancytopenia, 03/2020 fall with brain bleed-transferred from [facility] to [facility]-pt states he still has chronic headaches, chronic low back pain, PVD, chronic venous stasis dermatitis, past DVT R leg and PEs- laterallity unknown, SOB with exertion, LYRIC/no device, bilateral lower leg discolored/edematous. History of Any Multi-Drug Resistant Organisms: MRSA Date of last positivie culture/infection: 2006 MDRO Source:: unk Past Surgical History: Orthopedic Surgery Additional Past Surgical History / Comment(s): Left hand tendon surgery, EGD Past Anesthesia/Blood Transfusion Reactions: No Reported Reaction Past Psychological History: No Psychological Hx Reported Smoking Status: Current every day smoker, Light tobacco smoker Past Alcohol Use History: Abuse, Daily, Heavy Past Drug Use History: None Reported - Past Family History Mother Family Medical History: AFIB Father Family Medical History: Cancer Additional Family Medical History / Comment(s): Pt believes his father passed from lung cancer. He was a smoker. General Exam Limitations: no limitations General appearance: alert, appears intoxicated Head exam: Present: atraumatic, normocephalic, normal inspection Eye exam: Present: normal appearance, PERRL, EOMI. Absent: scleral icterus, conjunctival injection, periorbital swelling ENT exam: Present: normal exam, mucous membranes moist Neck exam: Present: normal inspection. Absent: tenderness, meningismus, lymphadenopathy Respiratory exam: Present: normal lung sounds bilaterally. Absent: respiratory distress, wheezes, rales, rhonchi, stridor Cardiovascular Exam: Present: regular rate, normal rhythm, normal heart sounds. Absent: systolic murmur, diastolic murmur, rubs, gallop, clicks GI/Abdominal exam: Present: soft, normal bowel sounds. Absent: distended, tenderness, guarding, rebound, rigid Extremities exam: Present: full ROM, normal capillary refill, pedal edema. Absent: tenderness, joint swelling, calf tenderness Back exam: Present: normal inspection Neurological exam: Present: alert, oriented X3, CN II-XII intact Psychiatric exam: Present: depressed Skin exam: Present: warm, dry, intact, normal color. Absent: rash Course Vital Signs 06/07/22 06/07/22 06/08/22 23:21 23:56 01:20 Temperature 98.2 F 98.2 F Pulse Rate 98 92 Pulse Rate [ 89 Pulse Oximetery ] Respiratory 18 18 17 Rate Blood Pressure 145/100 146/96 Blood Pressure 155/88 [Left Arm] O2 Sat by Pulse 98 96 95 Oximetry 06/08/22 06/08/22 06/08/22 01:21 01:26 01:42 Temperature 97.0 F L Pulse Rate 88 88 86 Pulse Rate [ Pulse Oximetery ] Respiratory 16 Rate Blood Pressure 139/92 Blood Pressure [Left Arm] O2 Sat by Pulse 95 Oximetry Medical Decision Making - Medical Decision Making Upon arrival patient was placed into room 4. He is visibly significantly intoxicated complaining he short of breath. Patient does have bilateral wheeze. DuoNeb breathing treatment ordered. Laboratory studies are obtained. He cardiac chest x-ray from earlier this morning. Patient is saturating 98% on room air without increased work of breathing. Patient will be admitted as alcohol level is 326. Spoke with Dr. Gonzales who will admit patient. - Lab Data Result diagrams: 06/07/22 23:46 06/07/22 23:46 Lab Results 06/07/22 06/07/22 06/07/22 Range/Units 23:46 23:46 23:46 WBC 3.3 L (3.8-10.6) k/uL RBC 4.93 (4.30-5.90) m/uL Hgb 15.6 (13.0-17.5) gm/dL Hct 48.8 (39.0-53.0) % MCV 98.9 (80.0-100.0) fL MCH 31.6 (25.0-35.0) pg MCHC 31.9 (31.0-37.0) g/dL RDW 14.3 (11.5-15.5) % Plt Count 173 (150-450) k/uL MPV 7.0 Neutrophils % 54 % Lymphocytes % 35 % Monocytes % 5 % Eosinophils % 2 % Basophils % 2 % Neutrophils # 1.8 (1.3-7.7) k/uL Lymphocytes # 1.2 (1.0-4.8) k/uL Monocytes # 0.2 (0-1.0) k/uL Eosinophils # 0.1 (0-0.7) k/uL Basophils # 0.1 (0-0.2) k/uL PT 10.1 (9.0-12.0) sec INR 0.9 (<1.2) APTT 22.9 (22.0-30.0) sec Sodium 143 (137-145) mmol/L Potassium 4.2 (3.5-5.1) mmol/L Chloride 100 (98-107) mmol/L Carbon Dioxide 23 (22-30) mmol/L Anion Gap 20 mmol/L BUN 7 L (9-20) mg/dL Creatinine 0.72 (0.66-1.25) mg/dL Est GFR (CKD-EPI)AfAm >90 (>60 ml/min/1.73 sqM) Est GFR (CKD-EPI)NonAf >90 (>60 ml/min/1.73 sqM) Glucose 96 (74-99) mg/dL Calcium 9.0 (8.4-10.2) mg/dL Total Bilirubin 1.0 (0.2-1.3) mg/dL AST 76 H (17-59) U/L ALT 61 H (4-49) U/L Alkaline Phosphatase 90 (38-126) U/L Troponin I (0.000-0.034) ng/mL NT-Pro-B Natriuret Pep pg/mL Total Protein 7.3 (6.3-8.2) g/dL Albumin 4.8 (3.5-5.0) g/dL Serum Alcohol 326 H* mg/dL 06/07/22 06/07/22 Range/Units 23:46 23:46 WBC (3.8-10.6) k/uL RBC (4.30-5.90) m/uL Hgb (13.0-17.5) gm/dL Hct (39.0-53.0) % MCV (80.0-100.0) fL MCH (25.0-35.0) pg MCHC (31.0-37.0) g/dL RDW (11.5-15.5) % Plt Count (150-450) k/uL MPV Neutrophils % % Lymphocytes % % Monocytes % % Eosinophils % % Basophils % % Neutrophils # (1.3-7.7) k/uL Lymphocytes # (1.0-4.8) k/uL Monocytes # (0-1.0) k/uL Eosinophils # (0-0.7) k/uL Basophils # (0-0.2) k/uL PT (9.0-12.0) sec INR (<1.2) APTT (22.0-30.0) sec Sodium (137-145) mmol/L Potassium (3.5-5.1) mmol/L Chloride (98-107) mmol/L Carbon Dioxide (22-30) mmol/L Anion Gap mmol/L BUN (9-20) mg/dL Creatinine (0.66-1.25) mg/dL Est GFR (CKD-EPI)AfAm (>60 ml/min/1.73 sqM) Est GFR (CKD-EPI)NonAf (>60 ml/min/1.73 sqM) Glucose (74-99) mg/dL Calcium (8.4-10.2) mg/dL Total Bilirubin (0.2-1.3) mg/dL AST (17-59) U/L ALT (4-49) U/L Alkaline Phosphatase (38-126) U/L Troponin I 0.012 (0.000-0.034) ng/mL NT-Pro-B Natriuret Pep 38 pg/mL Total Protein (6.3-8.2) g/dL Albumin (3.5-5.0) g/dL Serum Alcohol mg/dL - EKG Data EKG Comments: EKG demonstrates sinus rhythm with a rate of 78. VT interval 159. QRS 92. QTC of 416. No acute ST segment elevations or depressions Disposition Clinical Impression: Acute alcohol intoxication, Dyspnea Disposition: ADMITTED IP TO THIS HOSP Condition: Stable Is patient prescribed a controlled substance at d/c from ED?: No Time of Disposition: 01:02 Decision to Admit Reason: Admit from EC Decision Date: 06/08/22 Decision Time: 01:02
[2022-06-08 00:39] LABS: Alcohol 326 mg/dL
[2022-06-08] MEDS ORDERED: IPRATROPIUM-ALBUTEROL 3 ML NEB INHALATION STA (01:00)
[2022-06-08] MEDS ORDERED: NALOXONE 0.4 MG/ML 1 ML VIAL IV PRN (01:06)
[2022-06-08] MEDS ORDERED: LORazepam 2 MG/ML INJ IV PRN (01:11)
[2022-06-08] MEDS ORDERED: THIAMINE 100 MG/ML 2 ML VIAL IM STA (01:11)
[2022-06-08] MEDS ORDERED: ALBUTEROL NEBULIZED 2.5 MG/3 ML INHALATION PRN (01:13)
[2022-06-08] MEDS: SODIUM CHLORIDE 0.9% 1,000 ML IV SCH ×2 (01:53→18:01)
[2022-06-08] MEDS: LORazepam 2 MG/ML INJ IV PRN ×5 (03:10→23:41)
[2022-06-08] MEDS: FAMOTIDINE 20 MG TAB PO PRN (04:51)
[2022-06-08] MEDS: SYMBICORT 160-4.5 MCG INHALER INHALATION SCH ×2 (08:10→19:39)
[2022-06-08] MEDS: cloNIDine HCL 0.2 MG TAB PO SCH ×3 (08:57→21:24)
[2022-06-08] MEDS: APIXABAN 5 MG TAB PO SCH ×2 (08:57→19:40)
[2022-06-08] MEDS: METOPROLOL SUCCINATE (ER) 100 MG TAB.ER.24H PO SCH (08:57)
[2022-06-08] MEDS: LOSARTAN 50 MG TAB PO SCH (08:57)
[2022-06-08] MEDS: ACAMPROSATE CALCIUM 333 MG TABLET.DR PO SCH ×3 (12:52→21:24)
[2022-06-08] MEDS: THIAMINE 100 MG TAB PO SCH ×2 (18:01→18:04)
[2022-06-08] MEDS: MAGNESIUM OXIDE 400 MG TAB PO SCH ×2 (18:01→21:24)
[2022-06-09] MEDS: SODIUM CHLORIDE 0.9% 1,000 ML IV SCH ×2 (04:04→16:20)
[2022-06-09] MEDS: METOPROLOL SUCCINATE (ER) 100 MG TAB.ER.24H PO SCH (07:57)
[2022-06-09] MEDS: MAGNESIUM OXIDE 400 MG TAB PO SCH ×3 (07:57→20:45)
[2022-06-09] MEDS: THIAMINE 100 MG TAB PO SCH ×4 (07:57→16:19)
[2022-06-09] MEDS: LOSARTAN 50 MG TAB PO SCH (07:58)
[2022-06-09] MEDS: MULTIVITAMINS, THERA 1 EACH TAB PO SCH (07:58)
[2022-06-09] MEDS: cloNIDine HCL 0.2 MG TAB PO SCH ×3 (07:58→20:46)
[2022-06-09] MEDS: ACAMPROSATE CALCIUM 333 MG TABLET.DR PO SCH ×3 (07:58→20:45)
[2022-06-09] MEDS: APIXABAN 5 MG TAB PO SCH ×2 (07:58→20:46)
[2022-06-09] MEDS: SYMBICORT 160-4.5 MCG INHALER INHALATION SCH ×2 (08:18→20:57)
--- NOTE | 2022-06-09 08:33 | HP ---
HISTORY AND PHYSICAL CHIEF COMPLAINT: Acute alcohol intoxication. HISTORY OF PRESENT ILLNESS: This is another recent admission for this 61-year-old white male, who has been bouncing in and out of the hospital over the last several months with acute alcohol intoxication and DTs. He also has a history of hypertension and history of DVT. He presented to the hospital once again with some shortness of breath and chest discomfort and his workup was negative except for his alcohol intoxication and he was admitted. REVIEW OF SYSTEMS: He has had no hematemesis, melena, focal neurologic deficits, hemoptysis, etc. Past medical history, family history, and personal and social histories are all unchanged and unremarkable since his discharge last week. He was trying to go to rehab, but never got in. PHYSICAL EXAMINATION: VITAL SIGNS: Blood pressure 132/90 with a pulse of 94, respirations of 36. He is afebrile. GENERAL: Appeared to be slightly short of breath. FACE: Face was flushed. HEAD, EARS, EYES, NOSE, MOUTH AND THROAT: Normal. CHEST: Clear. CARDIAC: Exam demonstrated normal sinus rhythm but tachycardia. ABDOMEN: Slightly protuberant. Abdomen is soft and nontender. EXTREMITIES: Normal. There is no sign of edema. NEUROLOGICAL: He is intact. IMPRESSION: 1. Acute alcohol intoxication. 2. Impending delirium tremens. 3. History of pancytopenia. 4. History of deep venous thrombosis. PLAN: 1. Bed rest. 2. IV fluids. 3. CIIN protocol. HARPER / MARITZA: [id number] /
[2022-06-09 09:59] LABS: African American GFR (CKD) 116.6 (60.0-200.0); Anion Gap 12.6 mmol/L (10.00-18.00); BUN/Creat Ratio 9.31 Ratio (12.00-20.00); Blood Urea Nitrogen 6.8 mg/dL (9.0-27.0); Calcium 8.8 mg/dL (8.7-10.3); Carbon Dioxide 22.4 mmol/L (20.0-27.5); Non-African American GFR(CKD) 100.6 (60.0-200.0); Potassium 4.2 mmol/L (3.5-5.5)
[2022-06-09 10:28] LABS: Basophils # (A) 0.02 X 10*3/uL (0.00-0.10); Basophils % (A) 0.8 %; Eosinophils # (A) 0.05 X 10*3/uL (0.04-0.35); HCT 39.3 % (39.6-50.0); HGB 13.4 g/dL (13.0-17.0); Immature Grans, Automated 0 %; Lymphocytes # (A) 0.66 X 10*3/uL (0.90-5.00); Lymphocytes % (A) 26.4 %; MCH 32.7 pg (27.0-32.0); MCHC 34.1 g/dL (32.0-37.0); MCV 95.9 fL (80.0-97.0); Mean Platelet Volume 10.6 fL (9.5-12.2); Monocytes # (A) 0.27 X 10*3/uL (0.20-1.00); Monocytes % (A) 10.8 %; NRBC Per 100 WBC 0 /100 WBCS (0.0-0.0); Platelet Count 104 X 10*3/uL (140-440); RDW 14.1 % (11.5-14.5)
[2022-06-09] MEDS: LORazepam 2 MG/ML INJ IV PRN (11:34)
[2022-06-09] MEDS: DIPHENOX-ATROP 2.5-0.025 MG 1 EACH TAB PO PRN (20:45)
[2022-06-10] MEDS: LORazepam 2 MG/ML INJ IV PRN ×4 (00:55→12:43)
[2022-06-10] MEDS: SODIUM CHLORIDE 0.9% 1,000 ML IV SCH ×2 (05:18→18:08)
[2022-06-10] MEDS: SYMBICORT 160-4.5 MCG INHALER INHALATION SCH ×2 (08:10→20:30)
[2022-06-10] MEDS: THIAMINE 100 MG TAB PO SCH ×4 (08:49→17:35)
[2022-06-10] MEDS: ACAMPROSATE CALCIUM 333 MG TABLET.DR PO SCH ×3 (09:03→23:52)
[2022-06-10] MEDS: METOPROLOL SUCCINATE (ER) 100 MG TAB.ER.24H PO SCH (09:04)
[2022-06-10] MEDS: MULTIVITAMINS, THERA 1 EACH TAB PO SCH (09:04)
[2022-06-10] MEDS: APIXABAN 5 MG TAB PO SCH ×2 (09:04→20:21)
[2022-06-10] MEDS: MAGNESIUM OXIDE 400 MG TAB PO SCH ×3 (09:04→23:39)
[2022-06-10] MEDS: LOSARTAN 50 MG TAB PO SCH (09:04)
[2022-06-10] MEDS: cloNIDine HCL 0.2 MG TAB PO SCH ×3 (09:04→23:39)
--- NOTE | 2022-06-10 13:30 | PN ---
PROGRESS NOTE CHIEF COMPLAINT: DTs. HISTORY OF PRESENT ILLNESS: This gentleman still is somewhat shaky, nauseated, and complaining of some abdominal discomfort. PHYSICAL EXAMINATION: CHEST: Clear. CARDIAC: Normal. ABDOMEN: Slightly distended. EXTREMITIES: Normal. IMPRESSION: Acute alcohol intoxication and delirium tremens. PLAN: Continue with protocol and reassess tomorrow. MMODL / IJN: [id number] /
[2022-06-10] MEDS: LORazepam 1 MG/0.5 ML VIAL IV PRN ×4 (16:22→23:39)
[2022-06-11] MEDS: THIAMINE 100 MG TAB PO SCH ×4 (02:51→17:03)
[2022-06-11] MEDS: FAMOTIDINE 20 MG TAB PO PRN (05:32)
[2022-06-11] MEDS: DIPHENOX-ATROP 2.5-0.025 MG 1 EACH TAB PO PRN (05:32)
[2022-06-11] MEDS: LORazepam 1 MG/0.5 ML VIAL IV PRN ×6 (05:33→21:32)
[2022-06-11] MEDS: SODIUM CHLORIDE 0.9% 1,000 ML IV SCH (05:35)
[2022-06-11] MEDS: SYMBICORT 160-4.5 MCG INHALER INHALATION SCH ×2 (07:33→19:36)
[2022-06-11] MEDS: cloNIDine HCL 0.2 MG TAB PO SCH ×3 (08:44→20:04)
[2022-06-11] MEDS: MULTIVITAMINS, THERA 1 EACH TAB PO SCH (08:44)
[2022-06-11] MEDS: MAGNESIUM OXIDE 400 MG TAB PO SCH ×3 (08:44→20:04)
[2022-06-11] MEDS: APIXABAN 5 MG TAB PO SCH ×2 (08:44→20:04)
[2022-06-11] MEDS: METOPROLOL SUCCINATE (ER) 100 MG TAB.ER.24H PO SCH (08:44)
[2022-06-11] MEDS: LOSARTAN 50 MG TAB PO SCH (08:44)
[2022-06-11] MEDS: ACAMPROSATE CALCIUM 333 MG TABLET.DR PO SCH ×3 (08:45→20:04)
[2022-06-11 10:57] LABS: ALT 88 U/L (4-49); AST 79 U/L (17-59); African American GFR (CKD) >90 (>60 ml/min/1.73 sqM); Albumin 3.8 g/dL (3.5-5.0); Alkaline Phosphatase 72 U/L (38-126); Anion Gap 7 mmol/L; Blood Urea Nitrogen 10 mg/dL (9-20); Calcium 8.6 mg/dL (8.4-10.2); Carbon Dioxide 24 mmol/L (22-30); Chloride 101 mmol/L (98-107); Glucose 104 mg/dL (74-99); Non-African American GFR(CKD) >90 (>60 ml/min/1.73 sqM); Potassium 4.2 mmol/L (3.5-5.1); Sodium 132 mmol/L (137-145); Total Bilirubin 1.4 mg/dL (0.2-1.3); Total Protein 6.2 g/dL (6.3-8.2)
[2022-06-11 11:44] LABS: Basophils % (A) 0 %; Eosinophils # (A) 0.1 k/uL (0-0.7); Eosinophils % (A) 1 %; HCT 42.9 % (39.0-53.0); HGB 14.2 gm/dL (13.0-17.5); Lymphocytes # (A) 0.7 k/uL (1.0-4.8); Lymphocytes % (A) 10 %; MCH 32.1 pg (25.0-35.0); MCHC 33.1 g/dL (31.0-37.0); MCV 97.1 fL (80.0-100.0); Monocytes # (A) 0.4 k/uL (0-1.0); Monocytes % (A) 6 %; Neutrophils # (A) 5.3 k/uL (1.3-7.7); Neutrophils % (A) 81 %; RBC 4.42 m/uL (4.30-5.90); RDW 13.6 % (11.5-15.5); WBC 6.6 k/uL (3.8-10.6)
[2022-06-11 13:03] LABS: Platelet Count 79 k/uL (150-450)
[2022-06-11 13:04] LABS: RBC Morphology Normal
[2022-06-11] MEDS: NICOTINE 14MG/24HR PATCH TRANSDERM SCH (21:27)
[2022-06-12] MEDS: LORazepam 1 MG/0.5 ML VIAL IV PRN ×6 (00:16→20:02)
[2022-06-12] MEDS: SODIUM CHLORIDE 0.9% 1,000 ML IV SCH ×2 (05:49→20:09)
[2022-06-12] MEDS: THIAMINE 100 MG TAB PO SCH ×4 (06:40→17:00)
[2022-06-12] MEDS: SYMBICORT 160-4.5 MCG INHALER INHALATION SCH ×2 (07:43→20:39)
[2022-06-12] MEDS: MULTIVITAMINS, THERA 1 EACH TAB PO SCH (09:35)
[2022-06-12] MEDS: cloNIDine HCL 0.2 MG TAB PO SCH ×3 (09:35→20:01)
[2022-06-12] MEDS: MAGNESIUM OXIDE 400 MG TAB PO SCH ×3 (09:35→20:02)
[2022-06-12] MEDS: LOSARTAN 50 MG TAB PO SCH (09:35)
[2022-06-12] MEDS: APIXABAN 5 MG TAB PO SCH ×2 (09:36→20:02)
[2022-06-12] MEDS: METOPROLOL SUCCINATE (ER) 100 MG TAB.ER.24H PO SCH (09:36)
[2022-06-12] MEDS: ACAMPROSATE CALCIUM 333 MG TABLET.DR PO SCH ×3 (09:37→20:03)
[2022-06-12] MEDS: NICOTINE 14MG/24HR PATCH TRANSDERM SCH (09:40)
--- NOTE | 2022-06-12 20:19 | PN ---
PROGRESS NOTE CHIEF COMPLAINT: Delirium tremens. HISTORY OF PRESENT ILLNESS: This gentleman is improving, but he is having hallucinations. He has had no seizures. PHYSICAL EXAMINATION: GENERAL: He is awake and alert, not confused. CHEST: Clear. CARDIAC: Normal. ABDOMEN: Soft and nontender. IMPRESSION: 1. Delirium tremens. 2. History of deep venous thrombosis. PLAN: Continue with [facility] protocol. MMODL / ILENEN: [id number] /
--- NOTE | 2022-06-12 20:28 | PN ---
PROGRESS NOTE CHIEF COMPLAINT: DTs. HISTORY OF PRESENT ILLNESS: He is still having hallucinations. He is awake and alert. He has had no diplopia or seizures. PHYSICAL EXAMINATION: VITAL SIGNS: Normal. CHEST : Clear. CARDIAC: Normal. ABDOMEN: Soft. IMPRESSION: 1. Delirium tremens. 2. Chronic alcoholism. PLAN: Continue with this [facility] protocol and internal management until he is cleared of his delirium tremens. MMODL / IJN: [id number] /
[2022-06-13] MEDS: SODIUM CHLORIDE 0.9% 1,000 ML IV SCH ×2 (04:02→15:46)
--- NOTE | 2022-06-13 06:20 | PN ---
PROGRESS NOTE CHIEF COMPLAINT: DTs. HISTORY OF PRESENT ILLNESS: This gentleman is still having some hallucinations. He has had several episodes of diplopia. PHYSICAL EXAMINATION: GENERAL: There is no nystagmus. CHEST: Clear. CARDIAC: Normal. IMPRESSION: Delirium tremens. PLAN: Continue with current protocol. Gradual increase in activity. Laboratory studies are being watched due to his thrombocytopenia and elevated liver function studies, which are not coming down significantly. MMODL / IJN: [id number] /
[2022-06-13] MEDS: THIAMINE 100 MG TAB PO SCH ×4 (06:35→17:24)
[2022-06-13] MEDS: MULTIVITAMINS, THERA 1 EACH TAB PO SCH (08:13)
[2022-06-13] MEDS: APIXABAN 5 MG TAB PO SCH ×2 (08:13→20:11)
[2022-06-13] MEDS: ACAMPROSATE CALCIUM 333 MG TABLET.DR PO SCH ×3 (08:13→21:26)
[2022-06-13] MEDS: METOPROLOL SUCCINATE (ER) 100 MG TAB.ER.24H PO SCH (08:14)
[2022-06-13] MEDS: MAGNESIUM OXIDE 400 MG TAB PO SCH ×3 (08:14→20:11)
[2022-06-13] MEDS: cloNIDine HCL 0.2 MG TAB PO SCH ×3 (08:14→20:11)
[2022-06-13] MEDS: LOSARTAN 50 MG TAB PO SCH (08:14)
[2022-06-13] MEDS: NICOTINE 14MG/24HR PATCH TRANSDERM SCH (08:14)
[2022-06-13] MEDS: LORazepam 1 MG/0.5 ML VIAL IV PRN ×3 (08:24→21:26)
[2022-06-13] MEDS: SYMBICORT 160-4.5 MCG INHALER INHALATION SCH ×2 (08:58→20:07)
[2022-06-13 11:03] VITALS: BMI 31.2
[2022-06-14] MEDS: SODIUM CHLORIDE 0.9% 1,000 ML IV SCH ×2 (04:04→17:18)
[2022-06-14] MEDS: LORazepam 1 MG/0.5 ML VIAL IV PRN ×4 (04:05→21:22)
[2022-06-14] MEDS: THIAMINE 100 MG TAB PO SCH ×4 (06:41→17:19)
[2022-06-14] MEDS: APIXABAN 5 MG TAB PO SCH ×2 (08:44→21:21)
[2022-06-14] MEDS: MAGNESIUM OXIDE 400 MG TAB PO SCH ×3 (08:44→21:21)
[2022-06-14] MEDS: cloNIDine HCL 0.2 MG TAB PO SCH ×3 (08:44→21:22)
[2022-06-14] MEDS: METOPROLOL SUCCINATE (ER) 100 MG TAB.ER.24H PO SCH (08:44)
[2022-06-14] MEDS: LOSARTAN 50 MG TAB PO SCH (08:44)
[2022-06-14] MEDS: ACAMPROSATE CALCIUM 333 MG TABLET.DR PO SCH ×3 (08:44→21:22)
[2022-06-14] MEDS: MULTIVITAMINS, THERA 1 EACH TAB PO SCH (08:44)
[2022-06-14] MEDS: NICOTINE 14MG/24HR PATCH TRANSDERM SCH (08:45)
[2022-06-14] MEDS: SYMBICORT 160-4.5 MCG INHALER INHALATION SCH ×2 (08:55→20:02)
[2022-06-14 12:24] LABS: Glucose,Whole Blood 99 mg/dL (70-110)
[2022-06-14 16:51] LABS: Glucose,Whole Blood 105 mg/dL (70-110)
[2022-06-15] MEDS: LORazepam 1 MG/0.5 ML VIAL IV PRN (04:23)
[2022-06-15] MEDS: SODIUM CHLORIDE 0.9% 1,000 ML IV SCH (06:51)
[2022-06-15] MEDS: THIAMINE 100 MG TAB PO SCH ×4 (06:54→17:15)
[2022-06-15 08:14] VITALS: RESP 18
[2022-06-15] MEDS: MULTIVITAMINS, THERA 1 EACH TAB PO SCH (08:15)
[2022-06-15] MEDS: cloNIDine HCL 0.2 MG TAB PO SCH ×2 (08:15→17:15)
[2022-06-15] MEDS: ACAMPROSATE CALCIUM 333 MG TABLET.DR PO SCH ×2 (08:15→17:15)
[2022-06-15] MEDS: MAGNESIUM OXIDE 400 MG TAB PO SCH ×2 (08:15→17:15)
[2022-06-15] MEDS: APIXABAN 5 MG TAB PO SCH (08:15)
[2022-06-15] MEDS: LOSARTAN 50 MG TAB PO SCH (08:15)
[2022-06-15] MEDS: METOPROLOL SUCCINATE (ER) 100 MG TAB.ER.24H PO SCH (08:15)
[2022-06-15] MEDS: NICOTINE 14MG/24HR PATCH TRANSDERM SCH (08:15)
[2022-06-15] MEDS: SYMBICORT 160-4.5 MCG INHALER INHALATION SCH (08:33)
[2022-06-15 13:58] LABS: ALT 129 U/L (4-49); AST 90 U/L (17-59); African American GFR (CKD) >90 (>60 ml/min/1.73 sqM); Albumin 4.2 g/dL (3.5-5.0); Alkaline Phosphatase 74 U/L (38-126); Anion Gap 11 mmol/L; Blood Urea Nitrogen 14 mg/dL (9-20); Calcium 9.6 mg/dL (8.4-10.2); Carbon Dioxide 25 mmol/L (22-30); Chloride 100 mmol/L (98-107); Glucose 89 mg/dL (74-99); Non-African American GFR(CKD) 88 (>60 ml/min/1.73 sqM); Potassium 4.9 mmol/L (3.5-5.1); Sodium 136 mmol/L (137-145); Total Bilirubin 0.9 mg/dL (0.2-1.3); Total Protein 6.8 g/dL (6.3-8.2)
[2022-06-15 14:05] LABS: Basophils % (A) 1 %; Eosinophils # (A) 0.1 k/uL (0-0.7); Eosinophils % (A) 3 %; HCT 46.4 % (39.0-53.0); HGB 15.2 gm/dL (13.0-17.5); Lymphocytes % (A) 29 %; MCH 32.5 pg (25.0-35.0); MCHC 32.7 g/dL (31.0-37.0); MCV 99.4 fL (80.0-100.0); Mean Platelet Volume 9.2; Monocytes # (A) 0.4 k/uL (0-1.0); Monocytes % (A) 11 %; Neutrophils # (A) 1.9 k/uL (1.3-7.7); Neutrophils % (A) 53 %; RBC 4.67 m/uL (4.30-5.90); RDW 13.3 % (11.5-15.5); WBC 3.6 k/uL (3.8-10.6)
[2022-06-15 14:08] LABS: Platelet Count 167 k/uL (150-450)
[2022-06-15 14:32] LABS: RBC Morphology Normal
[2022-06-15 17:15] VITALS: BP 116/76; PULSE 72; TEMP 97.9
--- NOTE | 2022-06-15 18:57 | PN ---
PROGRESS NOTE CHIEF COMPLAINT: DTs and alcoholic hepatitis with cirrhosis. HISTORY OF PRESENT ILLNESS: Gentleman states he is still having hallucinations. He remains oriented, however. His liver function studies have leveled off and actually moved up slightly in the last day or 2. PHYSICAL EXAMINATION: CHEST: Clear. CARDIAC: Normal. ABDOMEN: Protuberant. There probably is accumulation of ascites. NEUROLOGIC: He is intact. IMPRESSION: 1. Acute alcohol intoxication. 2. Delirium tremens. 3. Cirrhosis. 4. Alcoholic hepatitis. 5. Ascites. PLAN: Continue to monitor liver function studies and increase diet and activity. MMODL / IJN: [id number] /
--- NOTE | 2022-06-15 19:44 | PN ---
PROGRESS NOTE CHIEF COMPLAINT: Alcoholism and DTs with cirrhosis and ascites. HISTORY OF PRESENT ILLNESS: Gentleman states that he is still hallucinating. I am not sure if this is the case. This may be a way that he manages to stay in the hospital. However, his liver enzymes are not coming down, and he is developing an increasingly large volume of ascites. PHYSICAL EXAMINATION: GENERAL: He is not jaundiced. CHEST: Clear. CARDIAC: Normal. ABDOMEN: More and more distended with ascites. IMPRESSION: 1. Delirium tremens. 2. Alcoholism. 3. Alcoholic hepatitis. 4. Cirrhosis. 5. Ascites. 6. History of deep venous thrombosis. PLAN: Continue to monitor the liver function and his neurologic status. MMODL / IJN: [id number] /
--- NOTE | 2022-06-17 19:07 | DS ---
DISCHARGE SUMMARY CHIEF COMPLAINT: Acute alcohol intoxication and DTs. HISTORY OF PRESENT ILLNESS AND PHYSICAL EXAMINATION: Details of this man's history and physical can be found in the initial workup. LABORATORY STUDIES: While he was in the hospital, he had laboratory studies, details of which can be found in the laboratory section of his chart. COURSE IN THE HOSPITAL: After admission, he was placed on bedrest and started on CIWA protocol. He did have DTs. He had a lot of difficulty with hallucinations. He had no seizures. He did not get diplopia or blackouts. As he was monitored in the hospital, his liver functions started to come down, but did not return to normal. He was stable enough. It was felt that he could be discharged, and he will go home on his usual activity and usual medications and will follow up in the office in several days. He was told that should he drink again, it is very likely that he could go into hepatic failure. FINAL DIAGNOSES: 1. Delirium tremens. 2. Chronic alcoholism. 3. Alcoholic hepatitis. 4. Cirrhosis. 5. Ascites. 6. History of deep venous thrombosis. OPERATIONS: None. CONSULTATION: None. CONDITION: He is improved. MMODL / IJN: [id number] /
== END 2022-06-15 17:52 | disposition home or self-care (01) | DRG 897 ==
LOC: EC 23:19 → 6NMEDSUR 06-08 01:06 → OBSVTOIN 06-08 11:32 → 3SCARD 06-10 15:15
PROVIDERS: ADMIT Family Medicine; ATTEND Family Medicine
DX: F10.221 Alcohol dependence with intoxication delirium (principal); G93.49 Other encephalopathy; F10.231 Alcohol dependence with withdrawal delirium; F17.210 Nicotine dependence, cigarettes, uncomplicated; I10 Essential (primary) hypertension; G47.30 Sleep apnea, unspecified; I48.91 Unspecified atrial fibrillation; I73.9 Peripheral vascular disease, unspecified; J44.9 Chronic obstructive pulmonary disease, unspecified; K70.11 Alcoholic hepatitis with ascites; K70.31 Alcoholic cirrhosis of liver with ascites; K76.0 Fatty (change of) liver, not elsewhere classified; I87.2 Venous insufficiency (chronic) (peripheral); G89.29 Other chronic pain; M54.50 Low back pain, unspecified; Y90.8 Blood alcohol level of 240 mg/100 ml or more; Z79.01 Long term (current) use of anticoagulants; Z79.51 Long term (current) use of inhaled steroids; Z86.711 Personal history of pulmonary embolism; Z86.718 Personal history of other venous thrombosis and embolism; Z88.0 Allergy status to penicillin; Z71.3 Dietary counseling and surveillance
CPT/HCPCS: 36415; 80048; 80053; 80320; 83880; 84484; 85025; 85610; 85730; 93005; 94640; 96372; 99285

== ENCOUNTER 2022-06-25 04:17 | Inpatient (IN) | payer OTHER ==
[2022-06-25] MEDS ORDERED: SODIUM CHLORIDE 0.9% 1,000 ML IV ONE (11:10)
[2022-06-25] MEDS ORDERED: ONDANSETRON 4 MG/2 ML VIAL IVP STA (11:10)
[2022-06-25] MEDS ORDERED: LORazepam 2 MG/ML INJ IV STA (11:10)
--- NOTE | 2022-06-25 11:10 | ED ---
Alcohol HPI - General Chief Complaint: Alcohol Stated Complaint: ETOH Time Seen by Provider: 06/25/22 10:30 Source: patient Mode of arrival: ambulatory Limitations: no limitations - History of Present Illness Initial Comments: 61-year-old male with past history of A. fib, COPD, DVT on anticoagulation presents to emergency department for alcohol intoxication. Patient admits to drinking 2 5th of vodka last night. He is well-known to the emergency depa rtment for his significant alcohol misuse. The patient is placed into the exam room 6-1/2 hours after he first presents to the emergency department. States that he has had nausea, vomiting, diaphoresis. Patient admits to me that he drinks because he is depressed. Denies suicidal attempt. He has been in rehab several times and continues to drink. - Related Data Home Medications Medication Instructions Recorded Confirmed Multivitamins, Thera [Multivitamin 1 tab PO DAILY 01/09/22 06/25/22 (formulary)] Albuterol Inhaler [Ventolin Hfa 2 puff INHALATION RT-TID PRN 02/26/22 06/25/22 Inhaler] Famotidine [Pepcid] 20 mg PO BID PRN 02/26/22 06/25/22 Budesonide-Formot 160-4.5 Mcg 2 puff INHALATION RT-BID 04/07/22 06/25/22 [Symbicort 160-4.5 Mcg Inhaler] Previous Rx's Medication Instructions Recorded Thiamine [Vitamin B-1] 100 mg PO BID-W/MEALS #60 tab 11/07/21 Magnesium Oxide [Mag-Ox] 400 mg PO TID 30 Days #90 tab 01/12/22 Acamprosate Calcium [Campral] 666 mg PO TID #30 tab 03/31/22 Apixaban [Eliquis] 5 mg PO BID #60 tab 04/11/22 Metoprolol Succinate (ER) [Toprol 100 mg PO DAILY #30 tab 04/11/22 XL] Losartan [Cozaar] 100 mg PO DAILY #10 tab 04/25/22 cloNIDine HCL [Catapres] 0.2 mg PO TID #90 tab 05/04/22 Allergies Allergy/AdvReac Type Severity Reaction Status Date / Time Penicillins Allergy Mild Rash/Hives Verified 06/25/22 13:01 Review of Systems ROS Statement: Those systems with pertinent positive or pertinent negative responses have been documented in the HPI. ROS Other: All systems not noted in ROS Statement are negative. Past Medical History Past Medical History: Atrial Fibrillation, COPD, Deep Vein Thrombosis (DVT), GERD/Reflux, Liver Disease, Osteoarthritis (OA), Pulmonary Embolus (PE), Sleep Apnea/CPAP/BIPAP, Vascular Disorder Additional Past Medical History / Comment(s): ETOH abuse, alcohol wi thdrawal/DTs, alcoholic hepatitis, hepatic steatosis, chronic encephalopathy, thrombocytopenia/pancytopenia, 03/2020 fall with brain bleed-transferred from [facility] to [facility]-pt states he still has chronic headaches, chronic low back pain, PVD, chronic venous stasis dermatitis, past DVT R leg and PEs- laterallity unknown, SOB with exertion, LYRIC/no device, bilateral lower leg discolored/edematous. History of Any Multi-Drug Resistant Organisms: MRSA Date of last positivie culture/infection: 2006 MDRO Source:: unk Past Surgical History: Orthopedic Surgery Additional Past Surgical History / Comment(s): Left hand tendon surgery, EGD Past Anesthesia/Blood Transfusion Reactions: No Reported Reaction Past Psychological History: No Psychological Hx Reported Smoking Status: Current every day smoker, Light tobacco smoker Past Alcohol Use History: Abuse, Daily, Heavy Past Drug Use History: None Reported - Past Family History Mother Family Medical History: AFIB Father Family Medical History: Cancer Additional Family Medical History / Comment(s): Pt believes his father passed from lung cancer. He was a smoker. General Exam Limitations: altered mental status General appearance: alert, appears intoxicated, other (Tremulous. Covered in vomit) Head exam: Present: atraumatic, normocephalic, normal inspection Eye exam: Present: normal appearance, PERRL, EOMI. Absent: scleral icterus, conjunctival injection, periorbital swelling ENT exam: Present: normal exam, mucous membranes moist Neck exam: Present: normal inspection. Absent: tenderness, meningismus, lymphadenopathy Respiratory exam: Present: normal lung sounds bilaterally. Absent: respiratory distress, wheezes, rales, rhonchi, stridor Cardiovascular Exam: Present: normal rhythm, tachycardia, normal heart sounds. Absent: systolic murmur, diastolic murmur, rubs, gallop, clicks GI/Abdominal exam: Present: soft, normal bowel sounds. Absent: distended, tenderness, guarding, rebound, rigid Extremities exam: Present: normal inspection, full ROM, normal capillary refill. Absent: tenderness, pedal edema, joint swelling, calf tenderness Back exam: Present: normal inspection Neurological exam: Present: altered, CN II-XII intact Psychiatric exam: Present: depressed, flat affect Skin exam: Present: warm, intact, normal color, diaphoretic. Absent: rash Course Vital Signs 06/25/22 06/25/22 06/25/22 04:19 13:22 15:01 Temperature 97.9 F Pulse Rate 113 H 102 H Pulse Rate [ 101 H Supine] Respiratory 20 18 Rate Blood Pressure 138/84 142/80 Blood Pressure [Right Arm] O2 Sat by Pulse 97 92 L 95 Oximetry 06/25/22 06/25/22 18:35 20:49 Temperature 99.0 F Pulse Rate 104 H Pulse Rate [ 83 Supine] Respiratory 18 16 Rate Blood Pressure 137/84 Blood Pressure 124/93 [Right Arm] O2 Sat by Pulse 96 91 L Oximetry Medical Decision Making - Medical Decision Making Upon arrival patient was placed into room 14. BAT is 0.90. Patient is almost at the legal limit at this point. He is tremulous, retching in the room. IV is established the patient is given a liter bolus of normal saline, 4 mg of Zofran and 2 of Ativan. I reviewed the laboratory studies. He remains with a high CIWA score of 10. He is placed on CIWA protocol. Spoke with Dr. Gonzales - call inturrupted and therefore waiting for call back. Plan to admit with psych consult. - Lab Data Result diagrams: 06/28/22 12:57 06/28/22 12:57 Lab Results 06/25/22 06/25/22 Range/Units 11:47 11:47 WBC 5.9 (3.8-10.6) k/uL RBC 4.43 (4.30-5.90) m/uL Hgb 14.7 (13.0-17.5) gm/dL Hct 41.7 (39.0-53.0) % MCV 94.2 D (80.0-100.0) fL MCH 33.2 (25.0-35.0) pg MCHC 35.3 (31.0-37.0) g/dL RDW 12.9 (11.5-15.5) % Plt Count 173 (150-450) k/uL MPV 8.1 Neutrophils % 80 % Lymphocytes % 11 % Monocytes % 5 % Eosinophils % 0 % Basophils % 1 % Neutrophils # 4.8 (1.3-7.7) k/uL Lymphocytes # 0.7 L (1.0-4.8) k/uL Monocytes # 0.3 (0-1.0) k/uL Eosinophils # 0.0 (0-0.7) k/uL Basophils # 0.1 (0-0.2) k/uL Sodium 130 L (137-145) mmol/L Potassium 3.9 (3.5-5.1) mmol/L Chloride 89 L (98-107) mmol/L Carbon Dioxide 21 L (22-30) mmol/L Anion Gap 20 mmol/L BUN 14 (9-20) mg/dL Creatinine 0.69 (0.66-1.25) mg/dL Est GFR (CKD-EPI)AfAm >90 (>60 ml/min/1.73 sqM) Est GFR (CKD-EPI)NonAf >90 (>60 ml/min/1.73 sqM) Glucose 80 (74-99) mg/dL Calcium 8.6 (8.4-10.2) mg/dL Total Bilirubin 1.4 H (0.2-1.3) mg/dL AST 92 H (17-59) U/L ALT 85 H (4-49) U/L Alkaline Phosphatase 72 (38-126) U/L Total Protein 6.7 (6.3-8.2) g/dL Albumin 4.3 (3.5-5.0) g/dL Disposition Clinical Impression: Alcohol abuse, Depression, Alcohol withdrawal, Impending delirium tremens Disposition: ADMITTED IP TO THIS [facility] Condition: Serious Is patient prescribed a controlled substance at d/c from ED?: No Time of Disposition: 12:59 Decision to Admit Reason: Admit from EC Decision Date: 06/25/22 Decision Time: 12:59
[2022-06-25 12:15] LABS: Basophils # (A) 0.1 k/uL (0-0.2); Basophils % (A) 1 %; Eosinophils % (A) 0 %; HCT 41.7 % (39.0-53.0); HGB 14.7 gm/dL (13.0-17.5); Lymphocytes # (A) 0.7 k/uL (1.0-4.8); Lymphocytes % (A) 11 %; MCH 33.2 pg (25.0-35.0); MCHC 35.3 g/dL (31.0-37.0); Mean Platelet Volume 8.1; Monocytes # (A) 0.3 k/uL (0-1.0); Monocytes % (A) 5 %; Neutrophils # (A) 4.8 k/uL (1.3-7.7); Neutrophils % (A) 80 %; Platelet Count 173 k/uL (150-450); RBC 4.43 m/uL (4.30-5.90); RDW 12.9 % (11.5-15.5); WBC 5.9 k/uL (3.8-10.6)
[2022-06-25 12:20] LABS: MCV 94.2 fL (80.0-100.0)
[2022-06-25 12:27] LABS: ALT 85 U/L (4-49); African American GFR (CKD) >90 (>60 ml/min/1.73 sqM); Albumin 4.3 g/dL (3.5-5.0); Anion Gap 20 mmol/L; Blood Urea Nitrogen 14 mg/dL (9-20); Calcium 8.6 mg/dL (8.4-10.2); Carbon Dioxide 21 mmol/L (22-30); Chloride 89 mmol/L (98-107); Glucose 80 mg/dL (74-99); Non-African American GFR(CKD) >90 (>60 ml/min/1.73 sqM); Sodium 130 mmol/L (137-145); Total Bilirubin 1.4 mg/dL (0.2-1.3); Total Protein 6.7 g/dL (6.3-8.2)
[2022-06-25 12:46] LABS: AST 92 U/L (17-59); Alkaline Phosphatase 72 U/L (38-126); Potassium 3.9 mmol/L (3.5-5.1)
[2022-06-25] MEDS ORDERED: NALOXONE 0.4 MG/ML 1 ML VIAL IV PRN (12:59)
[2022-06-25] MEDS ORDERED: THIAMINE 100 MG/ML 2 ML VIAL IM STA (13:14)
[2022-06-25] MEDS ORDERED: LORazepam 1 MG TAB PO PRN (13:14)
[2022-06-25] MEDS: SODIUM CHLORIDE 0.9% 1,000 ML IV SCH ×2 (14:36→22:59)
[2022-06-25] MEDS: LORazepam 1 MG TAB PO PRN ×2 (14:38→20:53)
[2022-06-26] MEDS ORDERED: SODIUM CHLORIDE 0.9% 1,000 ML IV SCH
[2022-06-26] MEDS ORDERED: LORazepam 1 MG TAB ONE (02:34)
--- NOTE | 2022-06-26 05:00 | HP ---
HISTORY AND PHYSICAL CHIEF COMPLAINT: Acute alcohol intoxication, DTs, tachycardia, and history of DVTs. HISTORY OF PRESENT ILLNESS: This is another admission for this gentleman, who has been in and out of the hospital every 2 to 3 weeks over the last 6 to 8 months. He had thought about going to rehab several months ago, but never made it. When he is drinking heavily, he experiences bone marrow suppression as well. He came back in on the day of admission in DTs and sinus tachycardia and was admitted. REVIEW OF SYSTEMS: Otherwise noncontributory. Past medical history, family history and personal and social histories are similarly unremarkable and noncontributory. He is supposed to be taking Eliquis for history of DVTs in the lower extremities. PHYSICAL EXAMINATION: VITAL SIGNS: Blood pressure 118/80 with a pulse of 88, respirations of 36, and he is afebrile. GENERAL: He appeared to be intoxicated. SKIN: Dry. LYMPH NODES: Not enlarged. HEAD, EARS, EYES, NOSE, MOUTH, AND THROAT: Normal. There was no strabismus. CHEST: Clear. CARDIAC: Demonstrates sinus tachycardia. ABDOMEN: Protuberant with a suggestion of ascites. EXTREMITIES: Normal. NEUROLOGICAL: Other than being in DTs, he was intact. IMPRESSION: 1. Delirium tremens. 2. Chronic alcoholism. 3. Acute alcohol intoxication. 4. History of alcoholic hepatitis. 5. History of pancytopenia secondary to alcohol. PLAN: 1. Bedrest. 2. IV fluids. 3. CIWI protocol. HARPER / MARITZA: [id number] /
[2022-06-26] MEDS: SODIUM CHLORIDE 0.9% 1,000 ML IV SCH ×4 (05:26→22:50)
[2022-06-26] MEDS: THIAMINE 100 MG TAB PO SCH (08:20)
[2022-06-26] MEDS: LORazepam 1 MG TAB PO PRN ×3 (08:30→22:49)
[2022-06-26] MEDS ORDERED: METOPROLOL SUCCINATE (ER) 100 MG TAB.ER.24H PO SCH (09:00)
[2022-06-26 09:25] LABS: African American GFR (CKD) 126.7 (60.0-200.0); Anion Gap 12.8 mmol/L (10.00-18.00); Blood Urea Nitrogen 11.4 mg/dL (9.0-27.0); Calcium 7.8 mg/dL (8.7-10.3); Carbon Dioxide 25.2 mmol/L (20.0-27.5); Non-African American GFR(CKD) 109.3 (60.0-200.0); Potassium 3.5 mmol/L (3.5-5.5)
[2022-06-26 10:25] LABS: Basophils # (A) 0.03 X 10*3/uL (0.00-0.10); Basophils % (A) 0.7 %; Eosinophils # (A) 0.02 X 10*3/uL (0.04-0.35); Eosinophils % (A) 0.5 %; HCT 38.1 % (39.6-50.0); HGB 13.1 g/dL (13.0-17.0); Immature Grans, Automated 0.5 %; Lymphocytes # (A) 0.82 X 10*3/uL (0.90-5.00); Lymphocytes % (A) 19.4 %; MCH 32.6 pg (27.0-32.0); MCHC 34.4 g/dL (32.0-37.0); MCV 94.8 fL (80.0-97.0); Monocytes # (A) 0.38 X 10*3/uL (0.20-1.00); NRBC Per 100 WBC 0 /100 WBCS (0.0-0.0); Neutrophils # (A) 2.96 X 10*3/uL (1.80-7.70); Neutrophils % (A) 69.9 %; Platelet Count 131 X 10*3/uL (140-440); RBC 4.02 X 10*6/uL (4.40-5.60); RDW 13.2 % (11.5-14.5); WBC 4.23 X 10*3/uL (4.50-10.00)
[2022-06-26] MEDS ORDERED: METOPROLOL TARTRATE 25 MG TAB PO STA (10:30)
[2022-06-26] MEDS: APIXABAN 5 MG TAB PO SCH ×2 (10:57→20:42)
[2022-06-26] MEDS ORDERED: chlordiazePOXIDE 25 MG CAP PO SCH (14:12)
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
[2022-06-26] MEDS: ACAMPROSATE CALCIUM 333 MG TABLET.DR PO SCH ×2 (14:49→20:42)
[2022-06-26] MEDS: SERTRALINE 50 MG TAB PO SCH (14:49)
[2022-06-26 15:54] LABS: INR 1.1 (<1.2); Prothrombin Time 11.9 sec (9.0-12.0)
[2022-06-26] MEDS: chlordiazePOXIDE 25 MG CAP PO SCH (20:41)
[2022-06-26] MEDS: MIRTAZAPINE 15 MG TAB PO SCH (20:41)
[2022-06-27] MEDS: LORazepam 1 MG TAB PO PRN ×2 (08:24→13:59)
[2022-06-27] MEDS: APIXABAN 5 MG TAB PO SCH ×2 (08:44→20:43)
[2022-06-27] MEDS: THIAMINE 100 MG TAB PO SCH (08:44)
[2022-06-27] MEDS: SERTRALINE 50 MG TAB PO SCH (08:45)
[2022-06-27] MEDS: ACAMPROSATE CALCIUM 333 MG TABLET.DR PO SCH ×3 (08:45→20:44)
[2022-06-27] MEDS: chlordiazePOXIDE 25 MG CAP PO SCH ×3 (08:45→20:43)
[2022-06-27] MEDS: SODIUM CHLORIDE 0.9% 1,000 ML IV SCH ×3 (08:51→20:44)
[2022-06-27] MEDS: METOPROLOL SUCCINATE (ER) 50 MG TAB.ER.24H PO SCH (08:51)
--- NOTE | 2022-06-27 12:10 | P.CRDCN ---
History of Present Illness Consult date: 06/27/22 Consult reason: atrial fibrillation History of present illness: The patient is a 61-year-old male who is currently admitted to the hospital with acute alcohol withdrawal. Cardiology was consulted for atrial fibrillation. The patient states he was diagnosed with a several months back, but does not follow-up with outboard motor inspector. The patient has multiple hospital admissions for alcohol withdrawal in the last 6 months. DIAGNOSTICS: EKG shows atrial fibrillation Lab data: WBC 4.2, hemoglobin 13.1, hematocrit 30.1, platelet 131, sodium 133, potassium 3.5, BUN 11, creatinine 0.6, AST 92, ALT 85, ALP 72, troponin negative, BNP 1320 PAST MEDICAL HISTORY: EtOH abuse, alcoholic hepatitis, pancytopenia REVIEW OF SYSTEMS: Positive fever or chills. No cough or expectoration. Positive for diaphoresis. Patient denies headache, dizziness, blurred vision, double vision. Patient denies any stomach discomfort. Positive for nausea, vomiting. No hematochezia. No hematemesis. Denies any black stools or blood in his stools. Denies dysuria or hematuria. No muscle weakness or numbness. Negative for shortness of breath. No chest pain. PHYSICAL EXAMINATION: This is a 61-year-old male in no apparent distress at the time of my examination. HEENT: There is no jugular venous distention. No carotid bruit is heard. CHEST EXAMINATION: Lungs are diminished to auscultation. No chest wall tenderness is noted on palpation or with deep breathing. HEART EXAMINATION: Heart rate irregular and rhythm. S1, S2 heard. No murmurs, gallops or rub. ABDOMEN: Soft, nontender. Bowel sounds are heard. No organomegaly noted. EXTREMITIES: 2+ peripheral pulses with no evidence of peripheral edema and no calf tenderness noted. NEUROLOGIC EXAMINATION: Patient is awake, alert and oriented x3. FINAL ASSESSMENT AND PLAN: A. fib with RVR, maximize beta blockers Acute alcohol intoxication History of alcoholic hepatitis History of pancytopenia secondary to alcohol abuse PLAN: Maximize beta blockers for rate control Do not resume anticoagulation with history of alcoholic hepatitis and pancytopenia No additional cardiac testing needed at this time I am dictating on behalf of Dr Luis Melgar's history/physical and assessment/plan. Past Medical History Past Medical History: Atrial Fibrillation, COPD, Deep Vein Thrombosis (DVT), GERD/Reflux, Liver Disease, Osteoarthritis (OA), Pulmonary Embolus (PE), Sleep Apnea/CPAP/BIPAP, Vascular Disorder Additional Past Medical History / Comment(s): ETOH abuse, alcohol withdrawal/DTs, alcoholic hepatitis, hepatic steatosis, chronic encephalopathy, thrombocytopenia/pancytopenia, 03/2020 fall with brain bleed-transferred from [facility] to [facility]-pt states he still has chronic headaches, chronic low back pain, PVD, chronic venous stasis dermatitis, past DVT R leg and PEs- laterallity unknown, SOB with exertion, LYRIC/no device, bilateral lower leg discolored/edematous. History of Any Multi-Drug Resistant Organisms: MRSA Date of last positivie culture/infection: 2006 MDRO Source:: unk Past Surgical History: Orthopedic Surgery Additional Past Surgical History / Comment(s): Left hand tendon surgery, EGD Past Anesthesia/Blood Transfusion Reactions: No Reported Reaction Past Psychological History: No Psychological Hx Reported Additional Psychological History / Comment(s): Pt currently resides alone. He has a car but no insurance. He gets to [facility] by taxi or friends. Smoking Status: Current every day smoker, Light tobacco smoker Past Alcohol Use History: Abuse, Daily, Heavy Additional Past Alcohol Use History / Comment(s): Pt started smoking in 1985 and is a half ppd smoker. Pt states he drinks about two one fifths of liqour a day Past Drug Use History: None Reported - Past Family History Mother Family Medical History: AFIB Father Family Medical History: Cancer Additional Family Medical History / Comment(s): Pt believes his father passed from lung cancer. He was a smoker. Medications and Allergies Home Medications Medication Instructions Recorded Confirmed Type Thiamine [Vitamin B-1] 100 mg PO BID-W/MEALS #60 tab 11/07/21 06/25/22 Rx Multivitamins, Thera [Multivitamin 1 tab PO DAILY 01/09/22 06/25/22 History (formulary)] Magnesium Oxide [Mag-Ox] 400 mg PO TID 30 Days #90 tab 01/12/22 06/25/22 Rx Albuterol Inhaler [Ventolin Hfa 2 puff INHALATION RT-TID PRN 02/26/22 06/25/22 History Inhaler] Famotidine [Pepcid] 20 mg PO BID PRN 02/26/22 06/25/22 History Acamprosate Calcium [Campral] 666 mg PO TID #30 tab 03/31/22 06/25/22 Rx Budesonide-Formot 160-4.5 Mcg 2 puff INHALATION RT-BID 04/07/22 06/25/22 History [Symbicort 160-4.5 Mcg Inhaler] Apixaban [Eliquis] 5 mg PO BID #60 tab 04/11/22 06/25/22 Rx Metoprolol Succinate (ER) [Toprol 100 mg PO DAILY #30 tab 04/11/22 06/25/22 Rx XL] Losartan [Cozaar] 100 mg PO DAILY #10 tab 04/25/22 06/25/22 Rx cloNIDine HCL [Catapres] 0.2 mg PO TID #90 tab 05/04/22 06/25/22 Rx Allergies Allergy/AdvReac Type Severity Reaction Status Date / Time Penicillins Allergy Mild Rash/Hives Verified 06/25/22 13:01 Physical Exam Vitals: Vital Signs Temp Pulse Pulse Resp BP Pulse Ox 06/27/22 08:40 99 81 16 06/27/22 08:17 99 06/27/22 07:45 86 132/69 06/27/22 05:32 98 F 92 16 130/90 96 06/26/22 20:00 98.3 F 78 16 122/80 96 06/26/22 17:51 98.6 F 78 18 121/76 96 Intake and Output 06/26/22 06/27/22 06/27/22 22:59 06:59 14:59 Intake Total 700 Output Total 2 1000 902 Balance -2 -300 -902 Intake: Oral 700 Output: Urine 1 1000 900 Stool 1 2 Other: Voiding Method Urinal Urinal # Voids 1 Results 06/26/22 05:19 06/26/22 05:19 Coagulation 06/26/22 Range/Units 14:57 PT 11.9 (9.0-12.0) sec Current Medications Generic Name Dose Route Start Last Admin Trade Name Freq PRN Reason Stop Dose Admin Acamprosate 333 mg 06/26/22 14:11 06/27/22 08:45 Acamprosate Calcium 333 Mg Tablet.Dr PO 06/28/22 01:00 333 mg TID JERO Administration Acamprosate 666 mg 06/28/22 09:00 Acamprosate Calcium 333 Mg Tablet.Dr PO TID JERO Acetaminophen 650 mg 06/25/22 13:10 Acetaminophen Tab 325 Mg Tab PO Q6HR PRN Mild Pain or Fever > 100.5 Apixaban 5 mg 06/26/22 10:45 06/27/22 08:44 Apixaban 5 Mg Tab PO 5 mg BID JERO Administration Protocol Chlordiazepoxide HCl 25 mg 06/26/22 22:00 06/27/22 08:45 Chlordiazepoxide 25 Mg Cap PO 25 mg TID JERO Administration Sodium Chloride 1,000 mls @ 150 mls/hr 06/25/22 13:15 06/27/22 08:51 Saline 0.9% IV 150 mls/hr .[id number] JERO Administration Lorazepam 0.5 mg 06/25/22 13:14 Lorazepam 0.5 Mg Tab PO Q4HR PRN Ciwa 4 To 5 Lorazepam 1 mg 06/25/22 13:14 06/27/22 08:24 Lorazepam 1 Mg Tab PO 1 mg Q4HR PRN Administration Ciwa 6 To 7 Lorazepam 2 mg 06/25/22 13:14 06/26/22 17:54 Lorazepam 1 Mg Tab PO 2 mg Q2HR PRN Administration Ciwa 10 or greater Lorazepam 2 mg 06/25/22 13:14 06/25/22 17:54 Lorazepam 1 Mg Tab PO 2 mg Q3HR PRN Administration Ciwa 8 To 9 Metoprolol Succinate 150 mg 06/27/22 09:00 06/27/22 08:51 Metoprolol Succinate (Er) 50 Mg Tab.Er.24h PO 150 mg DAILY JERO Administration Mirtazapine 15 mg 06/26/22 21:00 06/26/22 20:41 Mirtazapine 15 Mg Tab PO 15 mg HS JERO Administration Naloxone HCl 0.2 mg 06/25/22 12:59 Naloxone 0.4 Mg/Ml 1 Ml Vial IV Q2M PRN Opioid Reversal Sertraline HCl 50 mg 06/26/22 14:15 06/27/22 08:45 Sertraline 50 Mg Tab PO 50 mg DAILY JERO Administration Thiamine HCl 100 mg 06/26/22 09:00 06/27/22 08:44 Thiamine 100 Mg Tab PO 100 mg DAILY JERO Administration Intake and Output 06/26/22 06/27/22 06/27/22 22:59 06:59 14:59 Intake Total 700 Output Total 2 1000 902 Balance -2 -300 -902 Intake: Oral 700 Output: Urine 1 1000 900 Stool 1 2 Other: Voiding Method Urinal Urinal # Voids 1 06/26/22 05:19 06/26/22 05:19
[2022-06-27] MEDS: ACETAMINOPHEN TAB 325 MG TAB PO PRN (13:59)
[2022-06-27] MEDS ORDERED: PROCHLORPERAZINE 10 MG TAB PO PRN (16:15)
--- NOTE | 2022-06-27 18:43 | P.PN ---
Progress Note - Text Progress Note Date: 06/27/22 Interval History: Patient was seen bedside and was directable and agreeable to speak with data analyst report writer in the office. He reports doing well with the medications and taking them as directed. He denies side effects. He states that his mood is "all right ". He endorses reduced appetite and does not feel that Remeron has been helpful yet. At this time patient denies any suicidal or homicidal ideations, intent or plan. Patient denies any auditory, visual hallucinations and denies any paranoia or de lusions. Mental Status Exam: General Appearance: Patient appears to be stated age is alert, pleasant, and attempts to be cooperative. Patient appears to have fair hygiene and grooming wearing hospital gown with fair eye contact. Patient has a reina and short cut hair. Behavior: Patient is calmly lying in bed without any agitated behavior. Eye contact is appropriate. Speech: Patient's speech is fluent and nonpressured. Hesitant Mood/Affect: Patient reports their mood is "alright", affect is congruent and somewhat constricted. Suicidality/Homicidality: Patient denies having any suicidal or homicidal ideation intent or plan. Perceptions: The patient denies any auditory hallucinations. He denies visual hallucinations. Though content/process: There is no evidence of any delusional thought content and thought process is linear and goal-directed. Memory and concentration: AOX3, grossly intact for the purposes of this session. Judgment and insight: poor Assessment Depressive disorder, unspecified Alcohol use disorder, currently in withdrawal - improving nicotine dependence PLAN: -At this time patient DOES NOT meet criteria for inpatient psychiatric admission. -Would recommend the following medication changes/additions: Continue Librium 25 mg by mouth 3 times a day for alcohol withdrawal, remeron 15 mg qhs for sleep/mood, zoloft 50 mg daily for mood/anxiety, increase to campral 666 mg tid -Ciwa protocol with prn ativan. Monitor vitals. -Patient claims that he wants to think about possibly going to inpatient rehab. -Recommend social work consult to provide patient with outpatient appointments for substance abuse counseling, psychotherapy, and appropriate psychiatric follow-up. -Psychiatry will sign off -Please call with any questions
[2022-06-27] MEDS: MIRTAZAPINE 15 MG TAB PO SCH (20:44)
[2022-06-28] MEDS: LORazepam 1 MG TAB PO PRN (00:31)
[2022-06-28] MEDS: SODIUM CHLORIDE 0.9% 1,000 ML IV SCH ×3 (04:25→16:55)
[2022-06-28] MEDS: LORazepam 0.5 MG TAB PO PRN ×2 (05:20→13:12)
[2022-06-28] MEDS: SERTRALINE 50 MG TAB PO SCH (08:27)
[2022-06-28] MEDS: METOPROLOL SUCCINATE (ER) 50 MG TAB.ER.24H PO SCH (08:27)
[2022-06-28] MEDS: ACAMPROSATE CALCIUM 333 MG TABLET.DR PO SCH ×3 (08:28→20:54)
[2022-06-28] MEDS: chlordiazePOXIDE 25 MG CAP PO SCH ×3 (08:28→20:58)
[2022-06-28] MEDS: THIAMINE 100 MG TAB PO SCH (08:28)
[2022-06-28] MEDS: APIXABAN 5 MG TAB PO SCH ×2 (08:29→20:55)
--- NOTE | 2022-06-28 12:52 | P.PN ---
Subjective Progress Note Date: 06/28/22 The patient is 61-year-old male who is currently admitted to the hospital with alcohol withdrawal. The patient is typically admitted once every 2 months for similar issues. He has known atrial fibrillation and has been poorly rate controlled during this admission. His beta blockers have been maximized as tolerated. Discussed with the patient that his A. fib will not go away as long as he continues to consume alcohol. He was interviewed and examined resting comfortably in bed. He states overall he feels well. He states he does feel palpitations when he gets up and ambulates but does not have any dizziness or lightheadedness. No shortness of breath. No chest pains GENERAL: Well-appearing, well-nourished and in no acute distress. NECK: Supple without JVD or thyromegaly. LUNGS: Breath sounds clear to auscultation bilaterally. Respiration equal and unlabored. No wheezes, rales or rhonchi. HEART: Irregular rate and rhythm without murmurs, rubs or gallops. S1 and S2 heard. EXTREMITIES: Normal range of motion, no edema. No clubbing or cyanosis. Peripheral pulses intact and strong. VITALS: Blood pressure 134/87, pulse 76, temp 97.7F and respiratory rate 16, SpO2 97% on room air TELEMETRY: Persistent atrial fibrillation. Heart rate in the low 100s at rest. Up to the 160s to 170s with ambulation. IMPRESSION: A. fib with RVR, maximize beta blockers for rate control Acute alcohol intoxication History of alcoholic hepatitis History of pancytopenia secondary to alcohol abuse History of DVT/PE PLAN: Increase metoprolol to 150 mg daily Anticoagulation per primary team Continue supportive treatment for alcohol withdrawal Further recommendations will be based on clinical course I am dictating on behalf of Dr Luis Melgar's history/physical and assessment/plan. Objective - Vital Signs Vital signs: Vital Signs Temp 97.7 F 06/28/22 11:30 Pulse 76 06/28/22 11:30 Resp 16 06/28/22 11:30 BP 134/87 06/28/22 11:30 Pulse Ox 97 06/28/22 11:30 FiO2 Intake & Output 06/27/22 06/28/22 06/28/22 18:59 06:59 18:59 Intake Total 240 Output Total 1902 1400 1 Balance -[id number] -1 Intake: Oral 240 Output: Urine 1900 1400 Stool 2 1 Other: Voiding Method Urinal Urinal Urinal # Voids 3 # Bowel Movements 1 - Labs CBC & Chem 7: 06/26/22 05:19 06/26/22 05:19
[2022-06-28 13:27] LABS: Basophils % (A) 1 %; Eosinophils # (A) 0.1 k/uL (0-0.7); Eosinophils % (A) 2 %; HCT 47.8 % (39.0-53.0); HGB 15.9 gm/dL (13.0-17.5); Lymphocytes # (A) 1.2 k/uL (1.0-4.8); Lymphocytes % (A) 22 %; MCH 32.5 pg (25.0-35.0); MCHC 33.3 g/dL (31.0-37.0); MCV 97.5 fL (80.0-100.0); Mean Platelet Volume 10.2; Monocytes # (A) 0.3 k/uL (0-1.0); Monocytes % (A) 6 %; Neutrophils # (A) 3.7 k/uL (1.3-7.7); Neutrophils % (A) 68 %; RDW 13.1 % (11.5-15.5); WBC 5.5 k/uL (3.8-10.6)
[2022-06-28 13:44] LABS: African American GFR (CKD) >90 (>60 ml/min/1.73 sqM); Anion Gap 10 mmol/L; Blood Urea Nitrogen 11 mg/dL (9-20); Calcium 8.4 mg/dL (8.4-10.2); Carbon Dioxide 24 mmol/L (22-30); Chloride 102 mmol/L (98-107); Glucose 94 mg/dL (74-99); Non-African American GFR(CKD) >90 (>60 ml/min/1.73 sqM); Potassium 3.5 mmol/L (3.5-5.1); Sodium 136 mmol/L (137-145)
[2022-06-28 14:15] LABS: Platelet Count 86 k/uL (150-450)
--- NOTE | 2022-06-28 14:16 | XR ---
EXAMINATION TYPE: XR chest 2V DATE OF EXAM: 06/28/2022 COMPARISON: Chest x-ray 06/07/2022 HISTORY: Congestive heart failure TECHNIQUE: Frontal and lateral views of the chest are obtained. FINDINGS: There is no pleural effusion or pneumothorax seen. Bandlike area of increased attenuation present at the cardiac apex level. There are overlying leads. The cardiac silhouette size is within n ormal limits. The osseous structures are intact. IMPRESSION: Suspect some lingular atelectasis or scarring. Follow-up as indicated.
[2022-06-28] MEDS: MIRTAZAPINE 15 MG TAB PO SCH (20:55)
--- NOTE | 2022-06-28 23:18 | HP ---
HISTORY AND PHYSICAL CHIEF COMPLAINT: DTs. HISTORY OF PRESENT ILLNESS: This is another admission for this 61-year-old white male who repeatedly goes in and out of the hospital over the last several months. He comes in for DTs. He has also had secondary pancytopenia and he has a long-standing history of multiple DVTs, for which he is on anticoagulation. He came back in this time again with DTs, dehydration, and tachycardia. REVIEW OF SYSTEMS: He denied chest pain, shortness of breath, abdominal pain, hematemesis, melena, hematochezia, etc. Past medical history, family history, personal and social histories are all otherwise unremarkable and noncontributory and unchanged from his recent discharge. PHYSICAL EXAMINATION: VITAL SIGNS: Blood pressure is 138/89 with a pulse of 105, respirations of 36, and he is afebrile. GENERAL: He appeared to be dehydrated. SKIN: Dry. HEAD, EARS, EYES, NOSE, MOUTH AND THROAT: Essentially normal. CHEST: Clear. CARDIAC: Demonstrated tachycardia. ABDOMEN: Quite distended and firm, but nontender. There was no definite visceromegaly. Bowel sounds are present. EXTREMITIES: Normal. NEUROLOGICAL: He is intact. ASSESSMENT: He is admitted to the hospital with diagnoses, 1. Delirium tremens. 2. Acute alcohol intoxication. 3. Alcoholic hepatitis. 4. Chronic alcoholism. 5. Cirrhosis. 6. History of pancytopenia secondary to alcohol. 7. History of deep venous thrombosis. PLAN: 1. Bedrest. 2. IV fluids. 3. CIWA protocol. MMCHRIS / MARITZA: [id number] /
--- NOTE | 2022-06-28 23:48 | PN ---
PROGRESS NOTE CHIEF COMPLAINT: DTs. HISTORY OF PRESENT ILLNESS: This gentleman is still somewhat tremulous. He states he is having some hallucinations. He has also had some diplopia. His BNP has been noted to be very high and an echocardiogram will be ordered. He denies chest pain or shortness of breath at this time. PHYSICAL EXAMINATION: CHEST: Quite clear. CARDIAC: Demonstrates sinus tachycardia. ABDOMEN: Slightly protuberant, soft and nontender. EXTREMITIES: Normal. IMPRESSION: 1. Acute alcohol intoxication. 2. Delirium tremens. 3. Chronic alcoholism. 4. Tachycardia. 5. Elevated BNP. PLAN: 1. Continue with current program with IV fluids and CIWA protocol. 2. Echocardiogram. MMODL / IJN: [id number] /
--- NOTE | 2022-06-29 00:54 | PN ---
PROGRESS NOTE CHIEF COMPLAINT: DTs. HISTORY OF PRESENT ILLNESS: This gentleman is still in DTs with hallucinations and some tremulousness. He is also starting to have trouble with hiccups. PHYSICAL EXAMINATION: CHEST: Clear. CARDIAC: Normal. ABDOMEN: Slightly protuberant. Abdomen is nontender. He does have hiccups. IMPRESSION: 1. Delirium tremens. 2. Alcoholism. 3. History of deep vein thrombosis. 4. Hiccups. PLAN: Compazine 10 mg q.6h p.r.n., and continue with detox. MMODL / IJN: [id number] /
--- NOTE | 2022-06-29 01:18 | PN ---
PROGRESS NOTE CHIEF COMPLAINT: DTs. HISTORY OF PRESENT ILLNESS: This gentleman is still quite shaky and tremulous. He does have a tachycardia of around 120 to 130 beats per minute. PHYSICAL EXAMINATION: CHEST: Clear. CARDIAC: Demonstrates tachycardia. ABDOMEN: Soft and protuberant. IMPRESSION: 1. Delirium tremens. 2. Tachycardia. 3. Watch for arrhythmia. PLAN: Continue with [facility] protocol. HARPER / MARITZA: [id number] /
[2022-06-29] MEDS: SODIUM CHLORIDE 0.9% 1,000 ML IV SCH ×4 (02:52→17:39)
[2022-06-29] MEDS: SERTRALINE 50 MG TAB PO SCH (08:08)
[2022-06-29] MEDS: THIAMINE 100 MG TAB PO SCH (08:08)
[2022-06-29] MEDS: METOPROLOL SUCCINATE (ER) 50 MG TAB.ER.24H PO SCH (08:08)
[2022-06-29] MEDS: chlordiazePOXIDE 25 MG CAP PO SCH ×3 (08:08→21:57)
[2022-06-29] MEDS: APIXABAN 5 MG TAB PO SCH ×2 (08:08→21:57)
[2022-06-29] MEDS: ACAMPROSATE CALCIUM 333 MG TABLET.DR PO SCH ×3 (08:08→21:57)
[2022-06-29] MEDS: DILTIAZEM ORAL 30 MG TAB PO SCH ×2 (09:45→21:57)
--- NOTE | 2022-06-29 10:14 | P.PN ---
Subjective The patient is 61-year-old male with a past medical history of alcohol abuse, chronic nicotine dependence, COPD, DVT, alcoholic hepatitis, obstructive sleep apnea. 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 He is currently admitted to the hospital with alcohol withdrawal. The patient is typically admitted once every 2 months for similar issues. Cardiology consulted for A fib with RVR. Patient seen and examined at bedside, resting comfortably in bed, overall feels well. Denies any palpitations, lightheadedness, dizziness, chest pain or shortness of breath. He is in atrial fibrillation with controlled ventricular rates. GENERAL: Well-appearing, in no acute distress. NECK: Supple without JVD or thyromegaly. LUNGS: Breath sounds clear to auscultation bilaterally. Respiration equal and unlabored. No wheezes, rales or rhonchi. HEART: Irregular rate and rhythm without murmurs, rubs or gallops. S1 and S2 heard. EXTREMITIES: Normal range of motion, no edema. No clubbing or cyanosis. Peripheral pulses intact and strong. IMPRESSION: Persistent atrial fibrillation with RVR, currently controlled Acute alcohol intoxication History of alcoholic hepatitis History of pancytopenia secondary to alcohol abuse History of DVT/PE PLAN: Decrease metoprolol succinate 100mg daily Cardizem 30mg BID Anticoagulation per primary team Continue supportive treatment for alcohol withdrawal From cardiology perspective, no further inpatient workup at this time. Discharge per primary team. We will follow the patient as needed. Nurse practitioner note has been reviewed by physician. Signing provider agrees with the documented findings, assessment, and plan of care. Objective - Vital Signs Vital signs: Vital Signs Temp 98.7 F 06/29/22 04:35 Pulse 64 06/29/22 04:35 Resp 18 06/29/22 04:35 BP 134/92 06/29/22 04:35 Pulse Ox 96 06/29/22 04:35 FiO2 Intake & Output 06/28/22 06/29/22 06/29/22 18:59 06:59 18:59 Intake Total 520 Output Total 1301 1 500 Balance -781 -1 -500 Intake: Oral 520 Output: Urine 1300 500 Stool 1 1 Other: Voiding Method Urinal Urinal # Voids 3 - Labs CBC & Chem 7: 06/28/22 12:57 06/28/22 12:57 Labs: Abnormal Lab Results - Last 24 Hours (Table) 06/28/22 06/28/22 Range/Units 12:57 12:57 Plt Count 86 L D (150-450) k/uL Sodium 136 L (137-145) mmol/L
[2022-06-29] MEDS: ACETAMINOPHEN TAB 325 MG TAB PO PRN (19:31)
[2022-06-29] MEDS: MIRTAZAPINE 15 MG TAB PO SCH (21:57)
[2022-06-30] MEDS: SODIUM CHLORIDE 0.9% 1,000 ML IV SCH ×3 (03:47→15:49)
[2022-06-30] MEDS: DILTIAZEM ORAL 30 MG TAB PO SCH (08:39)
[2022-06-30] MEDS: APIXABAN 5 MG TAB PO SCH (08:39)
[2022-06-30] MEDS: chlordiazePOXIDE 25 MG CAP PO SCH (08:39)
[2022-06-30] MEDS: SERTRALINE 50 MG TAB PO SCH (08:39)
[2022-06-30] MEDS: ACAMPROSATE CALCIUM 333 MG TABLET.DR PO SCH (08:39)
[2022-06-30] MEDS: THIAMINE 100 MG TAB PO SCH (08:39)
[2022-06-30] MEDS ORDERED: METOPROLOL SUCCINATE (ER) 100 MG TAB.ER.24H PO SCH (09:00)
--- NOTE | 2022-06-30 11:08 | PN ---
PROGRESS NOTE CHIEF COMPLAINT: Acute alcohol intoxication and DTs. HISTORY OF PRESENT ILLNESS: This gentleman is doing fairly well. His CBC is relatively unremarkable. Platelets are slightly low, but other than that it is normal. He is doing fairly well. He is not having tremors or hallucinations. PHYSICAL EXAMINATION: CHEST: Clear. CARDIAC: Normal. ABDOMEN: Soft, nontender. IMPRESSION: 1. Delirium tremens. 2. Pancytopenia. 3. Chronic alcoholism. PLAN: Probably home in the next day or 2. MMODL / IJN: [id number] /
[2022-06-30 11:47] VITALS: BP 116/80; PULSE 52; RESP 18; TEMP 97.8
--- NOTE | 2022-07-01 04:38 | DS ---
DISCHARGE SUMMARY CHIEF COMPLAINT: Acute alcohol intoxication and DTs. HISTORY OF PRESENT ILLNESS AND PHYSICAL EXAMINATION: Details of this man's history and physical can be found in the initial workup. LABORATORY STUDIES: While he was in the hospital, he had laboratory studies, details of which can be found in the laboratory section of his chart. COURSE IN THE HOSPITAL: After admission, he was placed on bedrest, and started on intravenous fluids and CIWA protocol. His DTs were relatively short-lived for him. He did have sinus tachycardia, but this was resolved. He continued to have some diplopia and tremors, but this resolved and he was doing well, and it was felt that he could go home on the . He will go home on his usual activity, diet, and medication, and will come into the office in several days. FINAL DIAGNOSES: 1. Delirium tremens. 2. Acute alcohol intoxication. 3. Chronic alcoholism. 4. History of alcoholic hepatitis. 5. History of pancytopenia. 6. History of deep venous thrombosis of the lower extremities. OPERATIONS: None. CONSULTATIONS: None . CONDITION: He is improved. MMODL / IJN: [id number] /
== END 2022-06-30 15:35 | disposition home or self-care (01) | DRG 897 ==
LOC: EC 04:17 → 5NMEDONC 12:59
PROVIDERS: ADMIT Family Medicine; ATTEND Family Medicine
PROC: HZ2ZZZZ Detoxification Services for Substance Abuse Treatment (ICD-10-PCS; principal; 2022-06-25)
DX: F10.231 Alcohol dependence with withdrawal delirium (principal); I48.19 Other persistent atrial fibrillation; D61.818 Other pancytopenia; F10.229 Alcohol dependence with intoxication, unspecified; K70.10 Alcoholic hepatitis without ascites; R00.0 Tachycardia, unspecified; E86.0 Dehydration; Z71.6 Tobacco abuse counseling; Z71.41 Alcohol abuse counseling and surveillance of alcoholic; F17.210 Nicotine dependence, cigarettes, uncomplicated; F32.A Depression, unspecified; H53.2 Diplopia; J44.9 Chronic obstructive pulmonary disease, unspecified; Z79.01 Long term (current) use of anticoagulants; I73.9 Peripheral vascular disease, unspecified; I87.8 Other specified disorders of veins; G47.33 Obstructive sleep apnea (adult) (pediatric); G89.29 Other chronic pain; M54.50 Low back pain, unspecified; Z86.14 Personal history of Methicillin resistant Staphylococcus aureus infection; D69.6 Thrombocytopenia, unspecified; K74.60 Unspecified cirrhosis of liver; K76.0 Fatty (change of) liver, not elsewhere classified; Z79.51 Long term (current) use of inhaled steroids; Z79.899 Other long term (current) drug therapy; Z86.711 Personal history of pulmonary embolism; Z86.718 Personal history of other venous thrombosis and embolism; Z80.1 Family history of malignant neoplasm of trachea, bronchus and lung; Z88.0 Allergy status to penicillin
CPT/HCPCS: 36415; 71046; 80048; 80053; 82140; 83880; 84443; 84484; 85025; 85610; 93005; 96361; 96372; 96374; 96375; 99285

== ENCOUNTER 2022-07-20 08:16 | Inpatient (IN) | payer OTHER ==
[2022-07-20] MEDS ORDERED: SODIUM CHLORIDE 0.9% 1,000 ML IV ONE (08:50)
[2022-07-20] MEDS ORDERED: BACITRACIN OINT 1 EACH PACKET TOPICAL ONE (08:57)
--- NOTE | 2022-07-20 09:03 | ED ---
Alcohol HPI - General Chief Complaint: Alcohol Stated Complaint: ETOH Time Seen by Provider: 07/20/22 08:24 Source: patient, EMS, RN notes reviewed, old records reviewed Mode of arrival: EMS Limitations: altered mental status - History of Present Illness Initial Comments: 61-year-old male, alert and oriented 3, presents to the emergency room with alcohol intoxication. Patient with visible tremors. Denies headaches. States he drinks 2 fifths of vodka a day, last drink was 2 hours prior to arrival. He states he called the ambulance to come to the hospital for withdrawal. He states he did notice swelling and wound to his right hand a couple of days ago and does not recall an injury. Does not recall a fall. Patient also complaining of bilateral lower extremity swelling. MD Complaint: alcohol intoxication Last Drink: just [employer] (2 hours) -: hour(s) (2) Previous Visits for Alcohol Intoxication?: Yes Recent Trauma: Yes (right hand) Associated Symptoms: tremors Treatments Prior to Arrival: none Chronic Alcohol Use: Yes (2 fifths vodka a day) - Related Data Home Medications Medication Instructions Recorded Confirmed Multivitamins, Thera [Multivitamin 1 tab PO DAILY 01/09/22 07/20/22 (formulary)] Albuterol Inhaler [Ventolin Hfa 2 puff INHALATION RT-TID PRN 02/26/22 07/20/22 Inhaler] Famotidine [Pepcid] 20 mg PO BID PRN 02/26/22 07/20/22 Budesonide-Formot 160-4.5 Mcg 2 puff INHALATION RT-BID 04/07/22 07/20/22 [Symbicort 160-4.5 Mcg Inhaler] Previous Rx's Medication Instructions Recorded Thiamine [Vitamin B-1] 100 mg PO BID-W/MEALS #60 tab 11/07/21 Magnesium Oxide [Mag-Ox] 400 mg PO TID 30 Days #90 tab 01/12/22 Acamprosate Calcium [Campral] 666 mg PO TID #30 tab 03/31/22 Apixaban [Eliquis] 5 mg PO BID #60 tab 04/11/22 Losartan [Cozaar] 100 mg PO DAILY #10 tab 04/25/22 cloNIDine HCL [Catapres] 0.2 mg PO TID #90 tab 05/04/22 Diltiazem Oral [Cardizem*] 30 mg PO BID #20 tab 06/30/22 Metoprolol Succinate (ER) [Toprol 100 mg PO DAILY #20 tab 06/30/22 XL] Mirtazapine [Remeron] 45 mg PO HS #30 tab 06/30/22 Allergies Allergy/AdvReac Type Severity Reaction Status Date / Time Penicillins Allergy Mild Rash/Hives Verified 07/20/22 11:04 Review of Systems ROS Statement: Those systems with pertinent positive or pertinent negative responses have been documented in the HPI. ROS Other: All systems not noted in ROS Statement are negative. Past Medical History Past Medical History: Atrial Fibrillation, COPD, Deep Vein Thrombosis (DVT), GERD/Reflux, Liver Disease, Osteoarthritis (OA), Pulmonary Embolus (PE), Sleep Apnea/CPAP/BIPAP, Vascular Disorder Additional Past Medical History / Comment(s): ETOH abuse, alcohol withdrawal/DTs, alcoholic hepatitis, hepatic steatosis, chronic encephalopathy, thrombocytopenia/pancytopenia, 03/2020 fall with brain bleed-transferred [facility]-pt states he still has chronic headaches, chronic low back pain, PVD, chronic venous stasis dermatitis, past DVT R leg and PEs- laterallity unknown, SOB with exertion, LYRIC/no device, bilateral lower leg discolored/edematous. History of Any Multi-Drug Resistant Organisms: MRSA Date of last positivie culture/infection: 2006 MDRO Source:: unk Past Surgical History: Orthopedic Surgery Additional Past Surgical History / Comment(s): Left hand tendon surgery, EGD Past Anesthesia/Blood Transfusion Reactions: No Reported Reaction Past Psychological History: No Psychological Hx Reported Smoking Status: Current every day smoker, Light tobacco smoker Past Alcohol Use History: Abuse, Daily, Heavy Past Drug Use History: None Reported - Past Family History Mother Family Medical History: AFIB Father Family Medical History: Cancer Additional Family Medical History / Comment(s): Pt believes his father passed from lung cancer. He was a smoker. General Exam Limitations: altered mental status General appearance: alert Head exam: Present: atraumatic, normocephalic Eye exam: Present: normal appearance, EOMI. Absent: scleral icterus, conjunctival injection, nystagmus, periorbital swelling ENT exam: Present: mucous membranes moist Neck exam: Present: full ROM. Absent: tenderness, meningismus Respiratory exam: Absent: respiratory distress, accessory muscle use Cardiovascular Exam: Present: tachycardia GI/Abdominal exam: Present: distended. Absent: tenderness, guarding, rebound Extremities exam: Present: normal capillary refill, pedal edema (BLLE nonpitting) Back exam: Present: normal inspection, full ROM. Absent: CVA tenderness (R), CVA tenderness (L), rash noted Neurological exam: Present: alert, oriented X3 Expanded Patient oriented to: Present: person, place, time Speech: Present: fluid speech Cranial nerves: EOM's Intact: Normal, Gag Reflex: Normal, Tongue Deviation: Normal, Nystagmus: Normal Cerebellar function: Finger to Nose: Normal, Heel to Domínguez: Normal Motor strength exam: RUE: 5, LUE: 5 (slightly limited due to flexor tendon 4th and 5th injury), RLE: 4, LLE: 4 Eye Response: (4) open spontaneously Motor Response: (6) obeys commands Verbal Response: (5) oriented Geovanny Total: 15 Psychiatric exam: Present: normal affect, normal mood Skin exam: Present: warm, dry. Absent: cyanosis, diaphoretic, pallor Course Vital Signs 07/20/22 07/20/22 07/20/22 08:23 09:50 13:27 Temperature 97.6 F Pulse Rate 112 H 101 H Respiratory 16 18 Rate Blood Pressure 138/104 O2 Sat by Pulse 98 98 Oximetry Medical Decision Making - Medical Decision Making Patient presents with alcohol intoxication and wound to his right hand. X-ray of the right hand reviewed by me shows no acute fractures, remote injury to the right ulnar styloid noted. Radiologist impression no acute fracture or dislocation. Chest x-ray shows no acute cardiopulmonary disease or process. CT of the brain shows no evidence of intracranial hemorrhage or midline shift.. No evidence of leukocytosis. Hemoglobin and hematocrit are stable. Electrolytes are unremarkable. Alcohol level 322. Patient will be admitted to the hospital for acute alcohol intoxication. He is agreeable to this plan of care. Patient was placed on CIWA protocol Vital signs stable. Case discussed with Dr. Barone. - Lab Data Result diagrams: 07/20/22 09:28 07/20/22 09:28 Lab Results 07/20/22 07/20/22 07/20/22 Range/Units 09:28 09:28 09:28 WBC 2.9 L (3.8-10.6) k/uL RBC 4.78 (4.30-5.90) m/uL Hgb 15.9 (13.0-17.5) gm/dL Hct 46.3 (39.0-53.0) % MCV 96.8 (80.0-100.0) fL MCH 33.2 (25.0-35.0) pg MCHC 34.3 (31.0-37.0) g/dL RDW 14.1 (11.5-15.5) % Plt Count 109 L (150-450) k/uL MPV 7.9 Neutrophils % 69 % Lymphocytes % 22 % Monocytes % 5 % Eosinophils % 1 % Basophils % 0 % Neutrophils # 2.0 (1.3-7.7) k/uL Lymphocytes # 0.6 L (1.0-4.8) k/uL Monocytes # 0.2 (0-1.0) k/uL Eosinophils # 0.0 (0-0.7) k/uL Basophils # 0.0 (0-0.2) k/uL PT 10.5 (9.0-12.0) sec INR 1.0 (<1.2) APTT 24.2 (22.0-30.0) sec Sodium 138 (137-145) mmol/L Potassium 4.9 (3.5-5.1) mmol/L Chloride 100 (98-107) mmol/L Carbon Dioxide 22 (22-30) mmol/L Anion Gap 16 mmol/L BUN 8 L (9-20) mg/dL Creatinine 0.61 L (0.66-1.25) mg/dL Est GFR (CKD-EPI)AfAm >90 (>60 ml/min/1.73 sqM) Est GFR (CKD-EPI)NonAf >90 (>60 ml/min/1.73 sqM) Glucose 100 H (74-99) mg/dL Calcium 8.2 L (8.4-10.2) mg/dL Magnesium 1.7 (1.6-2.3) mg/dL Total Bilirubin 1.0 (0.2-1.3) mg/dL AST 79 H (17-59) U/L ALT 45 (4-49) U/L Alkaline Phosphatase 98 (38-126) U/L Troponin I (0.000-0.034) ng/mL Total Protein 7.3 (6.3-8.2) g/dL Albumin 4.5 (3.5-5.0) g/dL Urine Color Urine Appearance (Clear) Urine pH (5.0-8.0) Ur Specific [place] (1.001-1.035) Urine Protein (Negative) Urine Glucose (UA) (Negative) Urine Ketones (Negative) Urine Blood (Negative) Urine Nitrite (Negative) Urine Bilirubin (Negative) Urine Urobilinogen (<2.0) mg/dL Ur Leukocyte Esterase (Negative) Urine RBC (0-5) /hpf Hyaline Casts (0-2) /lpf Urine Mucus (None) /hpf Urine Opiates Screen (NotDetected) Ur Oxycodone Screen (NotDetected) Urine Methadone Screen (NotDetected) Ur Propoxyphene Screen (NotDetected) Ur Barbiturates Screen (NotDetected) U Tricyclic Antidepress (NotDetected) Ur Phencyclidine Scrn (NotDetected) Ur Amphetamines Screen (NotDetected) U Methamphetamines Scrn (NotDetected) U Benzodiazepines Scrn (NotDetected) Urine Cocaine Screen (NotDetected) U Marijuana (THC) Screen (NotDetected) Serum Alcohol 322 H* mg/dL 07/20/22 07/20/22 Range/Units 09:28 09:54 WBC (3.8-10.6) k/uL RBC (4.30-5.90) m/uL Hgb (13.0-17.5) gm/dL Hct (39.0-53.0) % MCV (80.0-100.0) fL MCH (25.0-35.0) pg MCHC (31.0-37.0) g/dL RDW (11.5-15.5) % Plt Count (150-450) k/uL MPV Neutrophils % % Lymphocytes % % Monocytes % % Eosinophils % % Basophils % % Neutrophils # (1.3-7.7) k/uL Lymphocytes # (1.0-4.8) k/uL Monocytes # (0-1.0) k/uL Eosinophils # (0-0.7) k/uL Basophils # (0-0.2) k/uL PT (9.0-12.0) sec INR (<1.2) APTT (22.0-30.0) sec Sodium (137-145) mmol/L Potassium (3.5-5.1) mmol/L Chloride (98-107) mmol/L Carbon Dioxide (22-30) mmol/L Anion Gap mmol/L BUN (9-20) mg/dL Creatinine (0.66-1.25) mg/dL Est GFR (CKD-EPI)AfAm (>60 ml/min/1.73 sqM) Est GFR (CKD-EPI)NonAf (>60 ml/min/1.73 sqM) Glucose (74-99) mg/dL Calcium (8.4-10.2) mg/dL Magnesium (1.6-2.3) mg/dL Total Bilirubin (0.2-1.3) mg/dL AST (17-59) U/L ALT (4-49) U/L Alkaline Phosphatase (38-126) U/L Troponin I <0.012 (0.000-0.034) ng/mL Total Protein (6.3-8.2) g/dL Albumin (3.5-5.0) g/dL Urine Color Yellow Urine Appearance Clear (Clear) Urine pH 7.5 (5.0-8.0) Ur Specific [place] 1.016 (1.001-1.035) Urine Protein 2+ H (Negative) Urine Glucose (UA) Negative (Negative) Urine Ketones 1+ H (Negative) Urine Blood Trace H (Negative) Urine Nitrite Negative (Negative) Urine Bilirubin Negative (Negative) Urine Urobilinogen <2.0 (<2.0) mg/dL Ur Leukocyte Esterase Negative (Negative) Urine RBC <1 (0-5) /hpf Hyaline Casts 1 (0-2) /lpf Urine Mucus Rare H (None) /hpf Urine Opiates Screen Not Detected (NotDetected) Ur Oxycodone Screen Not Detected (NotDetected) Urine Methadone Screen Not Detected (NotDetected) Ur Propoxyphene Screen Not Detected (NotDetected) Ur Barbiturates Screen Not Detected (NotDetected) U Tricyclic Antidepress Not Detected (NotDetected) Ur Phencyclidine Scrn Not Detected (NotDetected) Ur Amphetamines Screen Not Detected (NotDetected) U Methamphetamines Scrn Not Detected (NotDetected) U Benzodiazepines Scrn Detected H (NotDetected) Urine Cocaine Screen Not Detected (NotDetected) U Marijuana (THC) Screen Not Detected (NotDetected) Serum Alcohol mg/dL - EKG Data EKG shows normal: sinus rhythm (Sinus rhythm with a ventricular rate of 87, NM interval 0.154, QRS 0.89, QTC 0.405; normal axis) When compared to previous EKG there are: other (Old EKG dated 06/25/2022 atrial fibrillation) Disposition Clinical Impression: Alcohol intoxication Disposition: ADMITTED IP TO THIS HOSP Decision Date: 07/20/22 Decision Time: 10:51
[2022-07-20 09:35] LABS: Basophils % (A) 0 %; Eosinophils % (A) 1 %; HCT 46.3 % (39.0-53.0); HGB 15.9 gm/dL (13.0-17.5); Lymphocytes # (A) 0.6 k/uL (1.0-4.8); Lymphocytes % (A) 22 %; MCH 33.2 pg (25.0-35.0); MCHC 34.3 g/dL (31.0-37.0); MCV 96.8 fL (80.0-100.0); Mean Platelet Volume 7.9; Monocytes # (A) 0.2 k/uL (0-1.0); Monocytes % (A) 5 %; Neutrophils % (A) 69 %; Platelet Count 109 k/uL (150-450); RBC 4.78 m/uL (4.30-5.90); RDW 14.1 % (11.5-15.5); WBC 2.9 k/uL (3.8-10.6)
[2022-07-20 09:44] LABS: Partial Thromboplastin Time 24.2 sec (22.0-30.0); Prothrombin Time 10.5 sec (9.0-12.0)
[2022-07-20 09:52] LABS: ALT 45 U/L (4-49); African American GFR (CKD) >90 (>60 ml/min/1.73 sqM); Anion Gap 16 mmol/L; Blood Urea Nitrogen 8 mg/dL (9-20); Calcium 8.2 mg/dL (8.4-10.2); Carbon Dioxide 22 mmol/L (22-30); Chloride 100 mmol/L (98-107); Glucose 100 mg/dL (74-99); Non-African American GFR(CKD) >90 (>60 ml/min/1.73 sqM); Sodium 138 mmol/L (137-145)
[2022-07-20 10:05] LABS: Magnesium 1.7 mg/dL (1.6-2.3); Potassium 4.9 mmol/L (3.5-5.1)
[2022-07-20 10:06] LABS: AST 79 U/L (17-59); Albumin 4.5 g/dL (3.5-5.0); Alkaline Phosphatase 98 U/L (38-126); Total Protein 7.3 g/dL (6.3-8.2)
[2022-07-20 10:18] LABS: Appearance,Urine Clear (Clear); Bilirubin,Urine Negative (Negative); Blood,Urine Trace (Negative); Color,Urine Yellow; Glucose,Urine (UA) Negative (Negative); Hyaline Casts,Urine 1 /lpf (0-2); Ketones,Urine 1+ (Negative); Leukocyte Esterase,Urine Negative (Negative); Mucus,Urine Rare /hpf; Nitrite,Urine Negative (Negative); PH, Urine 7.5 (5.0-8.0); Protein,Urine 2+ (Negative); RBC,Urine <1 /hpf (0-5); Specific Gravity,Urine 1.016 (1.001-1.035); Urobilinogen,Urine <2.0 mg/dL (<2.0)
[2022-07-20 10:19] LABS: Cocaine Screen,Urine Not Detected (NotDetected); Opiate Screen,Urine Not Detected (NotDetected); Phencyclidine Screen,Urine Not Detected (NotDetected); Urn Cannabinoid Scrn Not Detected (NotDetected)
[2022-07-20 10:20] LABS: Amphetamine Screen,Urine Not Detected (NotDetected); Barbiturate Screen,Urine Not Detected (NotDetected); Benzodiazepines Screen,Urine Detected (NotDetected); Methadone Screen, Urine Not Detected (NotDetected); Oxycodone Screen, Urine Not Detected (NotDetected); Tricyclic Antidepressant,Urine Not Detected (NotDetected)
[2022-07-20 10:26] LABS: Alcohol 322 mg/dL
[2022-07-20] MEDS ORDERED: THIAMINE 100 MG/ML 2 ML VIAL IM STA (10:49)
[2022-07-20] MEDS ORDERED: LORazepam 1 MG TAB PO PRN (10:55)
[2022-07-20] MEDS ORDERED: LORazepam 0.5 MG TAB PO PRN (10:55)
--- NOTE | 2022-07-20 11:13 | XR ---
EXAMINATION TYPE: XR chest 2V DATE OF EXAM: 07/20/2022 11:09 AM COMPARISON: Chest radiographs from 06/28/2022. TECHNIQUE: XR chest 2V Frontal and lateral views of the chest. CLINICAL INDICATION:Male, 61 years old with history of altered mental status; FINDINGS: Lungs/Pleura: There is no evidence of pleural effusion, focal consolidation, or pneumothorax. Resolu tion of previously seen bandlike increased attenuation at the cardiac apex. Pulmonary vascularity: Unremarkable. Heart/mediastinum: Cardiomediastinal silhouette is unremarkable. Musculoskeletal: No acute osseous pathology. IMPRESSION: No acute cardiopulmonary disease/process.
[2022-07-20] MEDS ORDERED: ONDANSETRON 4 MG/2 ML VIAL IVP PRN (11:15)
[2022-07-20] MEDS ORDERED: NALOXONE 0.4 MG/ML 1 ML VIAL IV PRN (11:15)
--- NOTE | 2022-07-20 11:22 | XR ---
EXAMINATION TYPE: XR hand complete RT DATE OF EXAM: 07/20/2022 11:12 AM INDICATION: Patient age:Male; 61 years old; Reason for study: injury; PHH. COMPARISON: None TECHNIQUE: Frontal, lateral and oblique views of the right hand were obtained. FINDINGS: Normal alignment of the visualized joints. No acute osseous pathology is identified. No e vidence of soft tissue swelling. Mild joint space narrowing of the DIP and PIP joints of the second t hrough fourth digits. Degenerative changes of the first MTP joint. Remote appearing injury to the rig ht ulnar styloid. No radiopaque foreign bodies. IMPRESSION: No acute fracture or dislocation.
--- NOTE | 2022-07-20 11:47 | CT ---
EXAMINATION TYPE: CT brain wo con DATE OF EXAM: 07/20/2022 HISTORY: Altered mental status CT DLP: 1202.1 mGycm. Automated Exposure Control for Dose Reduction was Utilized. TECHNIQUE: CT scan of the head is performed without contrast. COMPARISON: CT brain dated 03/28/2022 FINDINGS: There is no acute intracranial hemorrhage or midline shift identified. There is mild to m oderate diffuse ventricular and sulcal prominence consistent with diffuse age-related cerebral atroph y. There is mild low-attenuation in the periventricular white matter consistent with chronic small v essel ischemic change. The globes are intact and the visualized sinuses are clear. IMPRESSION: No acute intracranial hemorrhage or midline shift. There is mild to moderate diffuse ag e-related cerebral atrophy and mild chronic small vessel ischemic change redemonstrated. No signific ant change from prior CT.
[2022-07-20] MEDS: LORazepam 1 MG TAB PO PRN ×4 (11:58→23:25)
[2022-07-20] MEDS ORDERED: ALBUTEROL NEBULIZED 2.5 MG/3 ML INHALATION PRN (12:45)
[2022-07-20] MEDS ORDERED: FAMOTIDINE 20 MG TAB PO PRN (12:45)
[2022-07-20] MEDS: cloNIDine HCL 0.2 MG TAB PO SCH ×2 (17:10→21:02)
[2022-07-20] MEDS: ACAMPROSATE CALCIUM 333 MG TABLET.DR PO SCH ×2 (17:10→21:25)
[2022-07-20] MEDS: THIAMINE 100 MG TAB PO SCH ×2 (17:10)
[2022-07-20] MEDS: MAGNESIUM OXIDE 400 MG TAB PO SCH ×2 (17:10→21:02)
[2022-07-20] MEDS: SYMBICORT 160-4.5 MCG INHALER INHALATION SCH (20:33)
[2022-07-20] MEDS: APIXABAN 5 MG TAB PO SCH (21:02)
[2022-07-20] MEDS: DILTIAZEM ORAL 30 MG TAB PO SCH (21:02)
[2022-07-20] MEDS: MIRTAZAPINE 45 MG TABLET PO SCH (21:25)
[2022-07-21] MEDS: THIAMINE 100 MG TAB PO SCH ×2 (06:47→16:26)
[2022-07-21] MEDS: LORazepam 1 MG TAB PO PRN ×3 (06:47→16:26)
[2022-07-21] MEDS: SYMBICORT 160-4.5 MCG INHALER INHALATION SCH ×2 (08:01→20:28)
[2022-07-21] MEDS: MAGNESIUM OXIDE 400 MG TAB PO SCH ×3 (08:12→22:00)
[2022-07-21] MEDS: cloNIDine HCL 0.2 MG TAB PO SCH ×3 (08:12→22:01)
[2022-07-21] MEDS: LOSARTAN 50 MG TAB PO SCH (08:12)
[2022-07-21] MEDS: MULTIVITAMINS, THERA 1 EACH TAB PO SCH (08:12)
[2022-07-21] MEDS: APIXABAN 5 MG TAB PO SCH ×2 (08:12→22:01)
[2022-07-21] MEDS: ACAMPROSATE CALCIUM 333 MG TABLET.DR PO SCH ×3 (08:12→22:01)
[2022-07-21] MEDS: DILTIAZEM ORAL 30 MG TAB PO SCH ×2 (08:12→22:01)
[2022-07-21] MEDS: METOPROLOL SUCCINATE (ER) 100 MG TAB.ER.24H PO SCH (08:12)
--- NOTE | 2022-07-21 11:24 | P.CONS ---
History of Present Illness - Reason for Consult Consult date: 07/21/22 wound care - History of Present Illness This is a 61-year-old gentleman with history of EtOH was being seen by the wound care center on 3 for a abrasion to the right hand. Patient does not know how this occurred. He does have eschar noted to the right dorsal hand extending to his fingers. Past history significant for EtOH abuse, alcoholic hepatitis, chronic encephalopathy, Parafon mikayla, GERD, DVT, atrial fibrillation, sleep apnea Review Of Systems: Constitutional: No fever, no chills, no night sweats. No weight change. No weakness, fatigue or lethargy. No daytime sleepiness. Integumentary:reports wounds, no lesions. No rash or pruritus. No unusual bruising. No change in hair or nails. Physical exam: General Appearance: Alert, cooperative, no distress, appears stated age. Skin: See HPI all other Skin color, texture, tugor normal, no rashes or lesions. Neurologic: Alert oriented x3 Assessment: 1. Nonhealing ulceration right hand Limited to skin breakdown 2. Abrasion Plan: 1. Right hand: Cleanse with saline, apply wet to dry dressing to the site. Once eschar is removed aply triad to the site and wrap with gauze. Thank you for the consultation any questions please contact the wound care center DNP note has been reviewed and discussed with Dr. Looney and the impression and plan of care has been directed as dictated. Past Medical History Past Medical History: Atrial Fibrillation, COPD, Deep Vein Thrombosis (DVT), GERD/Reflux, Liver Disease, Osteoarthritis (OA), Pulmonary Embolus (PE), Sleep Apnea/CPAP/BIPAP, Vascular Disorder Additional Past Medical History / Comment(s): ETOH abuse, alcohol withdrawal/DTs, alcoholic hepatitis, hepatic steatosis, chronic encephalopathy, thrombocytopenia/pancytopenia, 03/2020 fall with brain bleed-transferred [facility] to [facility]-pt states he still has chronic headaches, chronic low back pain, PVD, chronic venous stasis dermatitis, past DVT R leg and bilateral PEs, SOB with exertion, LYRIC/no device, bilateral lower leg discolored/edematous. History of Any Multi-Drug Resistant Organisms: MRSA Year Discovered:: 2006 MDRO Source:: unk Past Surgical History: Orthopedic Surgery Additional Past Surgical History / Comment(s): Left hand tendon surgery, EGD Past Anesthesia/Blood Transfusion Reactions: No Reported Reaction Past Psychological History: No Psychological Hx Reported Additional Psychological History / Comment(s): Pt currently resides alone. He has a car but no insurance. He gets to [facility] by taxi or friends. Smoking Status: Current every day smoker, Light tobacco smoker Past Alcohol Use History: Abuse, Daily, Heavy Additional Past Alcohol Use History / Comment(s): Pt started smoking in 1985 and is a half ppd smoker. Pt states he drinks about two one fifths of vodka/day Past Drug Use History: None Reported - Past Family History Mother Family Medical History: AFIB Father Family Medical History: Cancer Additional Family Medical History / Comment(s): Pt believes his father passed from lung cancer. He was a smoker. Medications and Allergies Home Medications Medication Instructions Recorded Confirmed Type Thiamine [Vitamin B-1] 100 mg PO BID-W/MEALS #60 tab 11/07/21 07/20/22 Rx Multivitamins, Thera [Multivitamin 1 tab PO DAILY 01/09/22 07/20/22 History (formulary)] Magnesium Oxide [Mag-Ox] 400 mg PO TID 30 Days #90 tab 01/12/22 07/20/22 Rx Albuterol Inhaler [Ventolin Hfa 2 puff INHALATION RT-TID PRN 02/26/22 07/20/22 History Inhaler] Famotidine [Pepcid] 20 mg PO BID PRN 02/26/22 07/20/22 History Acamprosate Calcium [Campral] 666 mg PO TID #30 tab 03/31/22 07/20/22 Rx Budesonide-Formot 160-4.5 Mcg 2 puff INHALATION RT-BID 04/07/22 07/20/22 History [Symbicort 160-4.5 Mcg Inhaler] Apixaban [Eliquis] 5 mg PO BID #60 tab 04/11/22 07/20/22 Rx Losartan [Cozaar] 100 mg PO DAILY #10 tab 04/25/22 07/20/22 Rx cloNIDine HCL [Catapres] 0.2 mg PO TID #90 tab 05/04/22 07/20/22 Rx Diltiazem Oral [Cardizem*] 30 mg PO BID #20 tab 06/30/22 07/20/22 Rx Metoprolol Succinate (ER) [Toprol 100 mg PO DAILY #20 tab 06/30/22 07/20/22 Rx XL] Mirtazapine [Remeron] 45 mg PO HS #30 tab 06/30/22 07/20/22 Rx Allergies Allergy/AdvReac Type Severity Reaction Status Date / Time Penicillins Allergy Mild Rash/Hives Verified 07/20/22 11:04 Physical Exam Vitals: Vital Signs Temp Pulse Pulse Resp BP BP Pulse Ox 07/21/22 05:00 98.2 F 66 20 135/85 95 07/20/22 21:00 98.0 F 83 22 132/84 93 L 07/20/22 18:13 161/116 07/20/22 17:14 109 H 16 172/113 95 07/20/22 13:27 101 H 18 98 Intake and Output 07/20/22 07/21/22 07/21/22 22:59 06:59 14:59 Intake Total 150 118 Output Total 275 250 Balance -125 -132 Intake: Oral 150 118 Output: Urine 275 250 Other: Voiding Method Urinal # Voids 1 1 Weight 113.398 kg Results CBC & Chem 7: 07/20/22 09:28 07/20/22 09:28 Assessment and Plan (1) Non-pressure chronic ulcer of skin of other sites limited to breakdown of skin Current Visit: Yes Status: Acute Code(s): L98.491 - NON-PRS CHRONIC ULCER SKIN/ SITES LIMITED TO BRKDWN SKIN SNOMED Code(s): 71503705 (2) Abrasion hand Current Visit: Yes Status: Acute Code(s): S60.519A - ABRASION OF UNSPECIFIED HAND, INITIAL ENCOUNTER SNOMED Code(s): 110851803
[2022-07-21] MEDS: PANTOPRAZOLE 40 MG/10 ML VIAL IV SCH (15:29)
[2022-07-21] MEDS: HYDROPHILIC CREAM 180 GM TUBE TOPICAL SCH (15:29)
[2022-07-21] MEDS: ACETAMINOPHEN TAB 325 MG TAB PO PRN (22:00)
[2022-07-21] MEDS: MIRTAZAPINE 45 MG TABLET PO SCH (22:01)
--- NOTE | 2022-07-22 00:35 | HP ---
HISTORY AND PHYSICAL CHIEF COMPLAINT: Acute alcohol intoxication. HISTORY OF PRESENT ILLNESS: This gentleman came to the emergency room once again intoxicated with an alcohol of 322. He admits to falling quite a bit lately. While he was in the emergency room, he was noticed to have several extensive abrasions and lacerations of the dorsum of right hand. X-rays reveal no fracture. REVIEW OF SYSTEMS: He denies any recent chest pain, shortness of breath, abdominal pain, etc. He has had a history of pulmonary emboli in the past. He has had no melena, hematochezia, urinary complaints, etc. Past medical history, family history, and personal and social histories are all otherwise unremarkable and unchanged from his recent discharge. He continues to drink heavily. PHYSICAL EXAMINATION: VITAL SIGNS: Blood pressure 138/104 with a pulse of 93, respirations of 35, and he is afebrile. GENERAL: He appeared to be disheveled, but he is awake and alert. He was slightly tremulous. HEAD, EARS, EYES, NOSE, MOUTH, AND THROAT: Normal. CHEST: Clear. CARDIAC: Demonstrates sinus tachycardia. ABDOMEN: Protuberant, soft and nontender without any visceromegaly or masses. Bowel sounds are present. EXTREMITIES: Normal except for the right hand, where he had extensive abrasions and superficial lacerations and skin tears. There was no deformity. Right hand function was normal. Neurologically, it was felt that he was going into delirium tremens. IMPRESSION: 1. Acute alcohol intoxication. 2. Chronic alcoholism. 3. Impending delirium tremens. 4. History of pulmonary emboli. 5. Healing abrasions of the dorsum of right hand. PLAN: 1. Bedrest. 2. IV fluids. 3. CIWA protocol. 4. Refer to Wound Care for the right hand. MMODL / IJN: [id number] /
[2022-07-22] MEDS: ACETAMINOPHEN TAB 325 MG TAB PO PRN (06:13)
[2022-07-22] MEDS: LORazepam 1 MG TAB PO PRN (06:16)
[2022-07-22] MEDS: SYMBICORT 160-4.5 MCG INHALER INHALATION SCH ×2 (07:44→19:46)
[2022-07-22] MEDS: APIXABAN 5 MG TAB PO SCH ×2 (08:20→22:05)
[2022-07-22] MEDS: THIAMINE 100 MG TAB PO SCH ×3 (08:20→16:21)
[2022-07-22] MEDS: cloNIDine HCL 0.2 MG TAB PO SCH ×3 (08:20→22:05)
[2022-07-22] MEDS: HYDROPHILIC CREAM 180 GM TUBE TOPICAL SCH (08:20)
[2022-07-22] MEDS: MAGNESIUM OXIDE 400 MG TAB PO SCH ×3 (08:20→22:05)
[2022-07-22] MEDS: PANTOPRAZOLE 40 MG/10 ML VIAL IV SCH (08:20)
[2022-07-22] MEDS: LOSARTAN 50 MG TAB PO SCH (08:20)
[2022-07-22] MEDS: MULTIVITAMINS, THERA 1 EACH TAB PO SCH (08:20)
[2022-07-22] MEDS: ACAMPROSATE CALCIUM 333 MG TABLET.DR PO SCH ×3 (08:23→22:05)
[2022-07-22] MEDS: METOPROLOL SUCCINATE (ER) 100 MG TAB.ER.24H PO SCH (08:23)
[2022-07-22] MEDS: DILTIAZEM ORAL 30 MG TAB PO SCH ×2 (08:23→22:05)
--- NOTE | 2022-07-22 08:28 | PN ---
PROGRESS NOTE CHIEF COMPLAINT: Acute alcohol intoxication and DTs. HISTORY OF PRESENT ILLNESS: This gentleman is slightly tremulous. He has had no chest pain or abdominal pain. PHYSICAL EXAMINATION: SKIN: There is no jaundice. CHEST: Clear. CARDIAC: Demonstrates sinus rhythm. ABDOMEN: Slightly protuberant, soft and nontender. EXTREMITIES: Normal except for the hand where there is no significant suggestion of infection. IMPRESSION: 1. Delirium tremens. 2. Chronic alcoholism. 3. History of deep venous thrombosis. 4. Abrasions and lacerations, dorsum right hand. PLAN: Continue with [facility] protocol. MMBLANKAL / IJN: [id number] /
[2022-07-22] MEDS: MIRTAZAPINE 45 MG TABLET PO SCH (22:06)
[2022-07-23] MEDS: THIAMINE 100 MG TAB PO SCH ×3 (06:41→16:15)
[2022-07-23] MEDS: SYMBICORT 160-4.5 MCG INHALER INHALATION SCH ×2 (08:23→20:09)
[2022-07-23] MEDS: APIXABAN 5 MG TAB PO SCH ×2 (08:34→20:56)
[2022-07-23] MEDS: MAGNESIUM OXIDE 400 MG TAB PO SCH ×3 (08:34→21:24)
[2022-07-23] MEDS: cloNIDine HCL 0.2 MG TAB PO SCH ×3 (08:34→21:25)
[2022-07-23] MEDS: LOSARTAN 50 MG TAB PO SCH (08:34)
[2022-07-23] MEDS: MULTIVITAMINS, THERA 1 EACH TAB PO SCH (08:34)
[2022-07-23] MEDS: ACAMPROSATE CALCIUM 333 MG TABLET.DR PO SCH ×3 (08:34→21:23)
[2022-07-23] MEDS: PANTOPRAZOLE 40 MG/10 ML VIAL IV SCH (08:35)
[2022-07-23] MEDS: HYDROPHILIC CREAM 180 GM TUBE TOPICAL SCH (08:35)
[2022-07-23] MEDS: DILTIAZEM ORAL 30 MG TAB PO SCH ×2 (08:35→21:24)
[2022-07-23] MEDS: METOPROLOL SUCCINATE (ER) 100 MG TAB.ER.24H PO SCH (08:35)
[2022-07-23] MEDS: ACETAMINOPHEN TAB 325 MG TAB PO PRN ×2 (08:37→16:20)
--- NOTE | 2022-07-23 11:53 | PN ---
PROGRESS NOTE DATE OF SERVICE: 07/23/2022 CHIEF COMPLAINT: Chronic alcoholism and abrasion of the right hand with DTs. HISTORY OF PRESENT ILLNESS: This gentleman is doing fairly well. He is still slightly shaky. PHYSICAL EXAMINATION: VITAL SIGNS: Normal. CHEST: Clear. CARDIAC: Normal. IMPRESSION: 1. Delirium tremens. 2. Chronic alcoholism. 3. Abrasions in the dorsum of the right hand. PLAN: Continue with local wound care to the hand and CIWA protocol. HARPER / MARITZA: [id number] /
--- NOTE | 2022-07-23 11:59 | PN ---
PROGRESS NOTE CHIEF COMPLAINT: DTs. HISTORY OF PRESENT ILLNESS: This gentleman is doing fairly well. He still is in DTs. Right hand was apparently debrided. He is having quite a bit of discomfort. PHYSICAL EXAMINATION: CHEST: Clear. CARDIAC: Normal. ABDOMEN: Soft, nontender. IMPRESSION: 1. Chronic alcoholism. 2. Delirium tremens. 3. Abrasions of the dorsum of the right hand. PLAN: Continue to monitor his DTs and slowly increase activity and diet once again. MMODL / IJN: [id number] /
[2022-07-23] MEDS: LORazepam 1 MG TAB PO PRN (20:56)
[2022-07-23] MEDS: MIRTAZAPINE 45 MG TABLET PO SCH (21:24)
[2022-07-23] MEDS: KETOROLAC 15 MG/ML 1 ML VIAL IVP PRN (21:56)
[2022-07-24] MEDS: KETOROLAC 15 MG/ML 1 ML VIAL IVP PRN (06:59)
[2022-07-24] MEDS: THIAMINE 100 MG TAB PO SCH ×2 (06:59→10:13)
[2022-07-24 08:02] VITALS: BP 134/93; PULSE 64; RESP 17; TEMP 97.3
[2022-07-24] MEDS: SYMBICORT 160-4.5 MCG INHALER INHALATION SCH (09:01)
[2022-07-24] MEDS: MULTIVITAMINS, THERA 1 EACH TAB PO SCH (10:12)
[2022-07-24] MEDS: LOSARTAN 50 MG TAB PO SCH (10:13)
[2022-07-24] MEDS: METOPROLOL SUCCINATE (ER) 100 MG TAB.ER.24H PO SCH (10:13)
[2022-07-24] MEDS: cloNIDine HCL 0.2 MG TAB PO SCH (10:13)
[2022-07-24] MEDS: APIXABAN 5 MG TAB PO SCH (10:13)
[2022-07-24] MEDS: MAGNESIUM OXIDE 400 MG TAB PO SCH (10:14)
[2022-07-24] MEDS: ACAMPROSATE CALCIUM 333 MG TABLET.DR PO SCH (10:14)
[2022-07-24] MEDS: DILTIAZEM ORAL 30 MG TAB PO SCH (10:14)
[2022-07-24] MEDS: HYDROPHILIC CREAM 180 GM TUBE TOPICAL SCH (10:16)
--- NOTE | 2022-07-24 21:33 | DS ---
DISCHARGE SUMMARY CHIEF COMPLAINT: Acute alcohol intoxication and abrasions of the dorsum of the right hand. HISTORY OF PRESENT ILLNESS AND PHYSICAL EXAMINATION: Details of this man's history and physical can be found in the initial workup. LABORATORY STUDIES: While he is in the hospital, he had laboratory studies, details of which can be found in the laboratory section of his chart. COURSE IN THE HOSPITAL: After admission, he was placed on bedrest, started on intravenous fluids and CIWA protocol. He was seen by Surgery, who debrided these eschars from the back of the right hand. He is doing well. It was felt that he could go home on the when he was out of DTs. He will go home on his usual activity, diet, medication, and follow up in several days. FINAL DIAGNOSES: 1. Acute alcohol intoxication. 2. Chronic alcoholism. 3. Delirium tremens. 4. Abrasions of the dorsum of the right hand. OPERATIONS: None. CONSULTATIONS: Surgery. He is improved. MMCHRIS / MARITZA: [id number] /
== END 2022-07-24 11:21 | disposition home or self-care (01) | DRG 897 ==
LOC: EC 08:16 → 5NMEDONC 11:28 → 3SCARD 18:29 → 4SSUR 07-21 15:32
PROVIDERS: ADMIT Family Medicine; ATTEND Family Medicine
PROC: HZ2ZZZZ Detoxification Services for Substance Abuse Treatment (ICD-10-PCS; principal; 2022-07-20)
DX: F10.229 Alcohol dependence with intoxication, unspecified (principal); G93.49 Other encephalopathy; F10.231 Alcohol dependence with withdrawal delirium; J44.9 Chronic obstructive pulmonary disease, unspecified; I48.91 Unspecified atrial fibrillation; I73.9 Peripheral vascular disease, unspecified; K70.10 Alcoholic hepatitis without ascites; K76.0 Fatty (change of) liver, not elsewhere classified; D69.6 Thrombocytopenia, unspecified; L98.491 Non-pressure chronic ulcer of skin of other sites limited to breakdown of skin; S60.511A Abrasion of right hand, initial encounter; Y90.3 Blood alcohol level of 60-79 mg/100 ml; K21.9 Gastro-esophageal reflux disease without esophagitis; Z88.0 Allergy status to penicillin; G47.33 Obstructive sleep apnea (adult) (pediatric); G89.29 Other chronic pain; M54.50 Low back pain, unspecified; H61.10 Unspecified noninfective disorders of pinna; I87.2 Venous insufficiency (chronic) (peripheral); R51.9 Headache, unspecified; M19.90 Unspecified osteoarthritis, unspecified site; F17.210 Nicotine dependence, cigarettes, uncomplicated; Z91.81 History of falling; I87.8 Other specified disorders of veins; K73.9 Chronic hepatitis, unspecified; Z79.899 Other long term (current) drug therapy; Z79.51 Long term (current) use of inhaled steroids; Z79.01 Long term (current) use of anticoagulants; Z86.718 Personal history of other venous thrombosis and embolism; Z86.711 Personal history of pulmonary embolism; Z86.14 Personal history of Methicillin resistant Staphylococcus aureus infection; Z86.79 Personal history of other diseases of the circulatory system; Z80.1 Family history of malignant neoplasm of trachea, bronchus and lung; Z82.49 Family history of ischemic heart disease and other diseases of the circulatory system; Y90.8 Blood alcohol level of 240 mg/100 ml or more
CPT/HCPCS: 36415; 70450; 71046; 80053; 80306; 80320; 81001; 83735; 84484; 85025; 85610; 85730; 93005; 94640; 94760; 96372; 96374; 99285